=== PATIENT | female | born 1965 | race Caucasian/White ===

== ENCOUNTER → 2016-06-28 | Outpatient (CLI) | payer OTHER ==
[~2016-06-28] MED LIST: ACHD5005 PO; AURODEX10M EACH EAR; CEFD300C3 PO; CEPH250T PO; CEPH500C PO; CHOL500049; CIPR500T78 PO; DCS100C PO; FLUO10CA19 PO; FLUO20CA25 PO; FLUO20CA42 PO; GABA-488 PO; GBPN100C PO; HYDR-2890 PO; HYDR-3714 PO; HYDR-3820; HYDR1TAB PO; MINO100C6 PO; MULT-974 PO; OMEG-12 PO; PIRO10CA2 PO; PREG75CA; TRAM50TA2 PO; muscle relaxer
--- NOTE | 2016-06-28 17:19 | Diagnostic Imaging Report ---
EXAM: Bilateral screening mammogram The current study was also evaluated with a Computer Aided Detection (CAD) system. INDICATION: Screening. No current complaints stated on the questionnaire. COMPARISON: None. This is baseline study. FINDINGS: The breasts are composed of scattered fibroglandular densities. There are central subcentimeter asymmetries within the left breast with slightly increased density and questionable correlating abnormalities in the central aspect of the left breast. These could be summation artifact of parenchyma, however no prior study is available for comparison. The right breast demonstrates no definite mass, architectural distortion or suspicious calcification. IMPRESSION: Nonspecific focal asymmetries in the central aspect of the left breast. Focal compression views and ultrasound evaluation recommended. BI-RADS 0. ACR BI-RADS Category 0: Incomplete. (Needs additional imaging evaluation). Result letter will be mailed to the patient. Note: At least 10% of breast cancer is not imaged by mammography. Dictated by: Dictated on workstation # [id number]
== END ==
LOC: RAD 08:35
PROVIDERS: ATTEND Nurse Practitioner Community Health
DX: Z12.31 Encounter for screening mammogram for malignant neoplasm of breast (principal)

== ENCOUNTER → 2016-07-15 | Outpatient (CLI) | payer OTHER ==
--- NOTE | 2016-07-15 13:59 | Diagnostic Imaging Report ---
Left breast diagnostic mammogram. The current study was also evaluated with a Computer Aided Detection (CAD) system. INDICATION: Focal asymmetries in the central aspect of the left breast. FINDINGS: Focal compression views demonstrate less prominent asymmetries in favor of summation artifact of parenchyma. IMPRESSION: Prominent asymmetries upon additional evaluation in favor of summation artifact of parenchyma. Ultrasound evaluation pending. ACR BI-RADS Category 0: Incomplete. (Needs additional imaging evaluation). Result letter will be mailed to the patient. Note: At least 10% of breast cancer is not imaged by mammography. Dictated by: Dictated on workstation # [id number]
--- NOTE | 2016-07-15 14:04 | Diagnostic Imaging Report ---
Left breast ultrasound. INDICATION: Focal asymmetries in the central aspect of the left breast. FINDINGS: Unremarkable breast parenchyma seen with no focal lesion. IMPRESSION: Negative study. The focal asymmetries seen on mammography also did not demonstrate any convincing underlying lesion on focal compression view and true lateral additional view on diagnostic mammogram evaluation and is suggestive of summation artifact of parenchyma. Annual screening mammogram is recommended. ACR BI-RADS Category 1: Negative. Dictated by: Dictated on workstation # [id number]
== END ==
LOC: RAD 07:26
PROVIDERS: ATTEND Nurse Practitioner Community Health
DX: R92.8 Other abnormal and inconclusive findings on diagnostic imaging of breast (principal)
CPT/HCPCS: 76641

== ENCOUNTER 2017-02-22 20:30 | Emergency (ER) | payer SELFPAY ==
[~2017-02-22] VITALS: Ht 165.1 cm; Wt 75.7 kg
--- OUTSIDE RECORDS SUMMARY | 2017-02-22 20:36 | XMS REPORT ---
Author Author CHUY NGUYEN Organization [employer] Address Unknown Phone Unavailable Care Team Providers Care Parachute Taper Name Role Phone CHUY NGUYEN CP Unavailable Allergies No Known Allergies Problems Problem Type Condition Code Onset Dates Condition Status Problem Varicose veins I86.8 Active Assessment Dysthymia 300.4 Active Problem Myalgia M79.1 Active Problem Scoliosis M41.9 Active Problem 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.50 Active Problem Dysthymia F34.1 Active Problem Urinary urgency R39.15 Active Problem Other chronic pain G89.29 Active Problem Scoliosis (and kyphoscoliosis), idiopathic M41.20 Active Medications Medication Code System Code Instructions Start Date End Date Status Dosage Fluoxetine NDC 0 20 mg Once a day September 09, 2014 1 capsule by Oral route 1 time per day Pt needs an appt for further refills Results No Known Results Summary Purpose eClinicalWorks Submission
--- OUTSIDE RECORDS SUMMARY | 2017-02-22 20:36 | XMS REPORT ---
Author Author CHUY NGUYEN Organization [employer] Address Unknown Phone Unavailable Care Team Providers Care Quarry Plug And Feather Driller Name Role Phone CHUY NGUYEN CP Unavailable Allergies No Known Allergies Problems Problem Type Condition Code Onset Dates Condition Status Assessment 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.50 Active Problem Urinary urgency R39.15 Active Problem Varicose veins I86.8 Active Problem Major depressive disorder, single episode, unspecified F32.9 Active Problem 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.50 Active Problem Scoliosis, unspecified scoliosis type, unspecified spinal region M41.9 Active Problem Scoliosis (and kyphoscoliosis), idiopathic M41.20 Active Problem Dysthymia F34.1 Active Problem Myalgia M79.1 Active Problem Other chronic pain G89.29 Active Medications Medication Code System Code Instructions Start Date End Date Status Dosage Hydrocodone-Acetaminophen [facility] [address]-38 10-325 MG Orally 4 times a day September 18, 2014 1 tablet as needed for pain Results No Known Results Summary Purpose eClinicalWorks Submission
--- OUTSIDE RECORDS SUMMARY | 2017-02-22 20:36 | XMS REPORT ---
Author Author CHUY NGUYEN Organization [facility] Address [address] [place] [address] Care Team Providers Care Locomotive Engineer Electric Name Role Phone CHUY NGUYEN Unavailable PROBLEMS Type Condition ICD9-CM Code SFL46-PT Code Onset Dates Condition Status SNOMED Code Problem Scoliosis (and kyphoscoliosis), idiopathic M41.20 Active 34391263 Problem Myalgia M79.1 Active 75430177 Problem Other chronic pain G89.29 Active 83576528 Problem Urinary urgency R39.15 Active 49864667 Problem Dysthymia F34.1 Active 13061229 Problem Varicose veins I86.8 Active 458749547 Problem Need for prophylaxis against urinary tract infection Z29.8 Active 027403023 Problem Abnormal mammogram of left breast R92.8 Active 451745793 Problem Scoliosis, unspecified scoliosis type, unspecified spinal region M41.9 Active 536429457 Problem 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.50 Active 69703473 Problem Calculus of gallbladder without cholecystitis without obstruction K80.20 Active 480005719 Problem Major depressive disorder, single episode, unspecified F32.9 Active 12140798 ALLERGIES Unknown Allergies SOCIAL HISTORY No smoking Hx information available PLAN OF CARE VITAL SIGNS MEDICATIONS Unknown Medications RESULTS Name Result Date Reference Range Mammogram Dx, Left 2016-07-15 PROCEDURES No Known procedures IMMUNIZATIONS No Known Immunizations
--- OUTSIDE RECORDS SUMMARY | 2017-02-22 20:36 | XMS REPORT ---
Author Author CHUY NGUYEN Organization [employer] Address Unknown Phone Unavailable Care Team Providers Care Oil Spreader Operator Name Role Phone CHUY NGUYEN CP Unavailable Allergies No Known Allergies Problems Problem Type Condition ICD-9 Code Onset Dates Condition Status Problem Varicose veins of the lower extremities with other complications 454.8 Active Problem Sprain and strain of unspecified site of wrist 842.00 Active Problem Urgency of urination 788.63 Active Problem Encounter for long-term (current) use of other medications V58.69 Active Problem Scoliosis (and kyphoscoliosis), idiopathic 737.30 Active Problem Pain in joint, shoulder region 719.41 Active Problem Urinary hesitancy 788.64 Active Problem Enthesopathy of hip region 726.5 Active Problem Family history of other condition V19.8 Active Problem Dysthymic disorder 300.4 Active Problem Spasm of muscle 728.85 Active Problem Urinary tract infection, site not specified 599.0 Active Problem Unspecified neuralgia, neuritis, and radiculitis 729.2 Active Problem Dysfunction of Eustachian tube 381.81 Active Medications Medication Code System Code Instructions Start Date End Date Status Dosage Hydrocodone-Acetaminophen [facility] [address]-36 10-325 MG PT NEEDS AN APPT FOR FURTHER REFILLS September 18, 2014 1 tablet by Oral route every 8 hours PRN Results No Known Results Summary Purpose eClinicalWorks Submission
--- OUTSIDE RECORDS SUMMARY | 2017-02-22 20:36 | XMS REPORT ---
Author Author CHUY NGUYEN Organization [employer] Address Unknown Phone Unavailable Care Team Providers Care Brusher Hand Name Role Phone CHUY NGUYEN CP Unavailable Allergies No Known Allergies Problems Problem Type Condition Code Onset Dates Condition Status Problem Dysthymia F34.1 Active Problem Urinary urgency R39.15 Active Problem Scoliosis (and kyphoscoliosis), idiopathic M41.20 Active Problem Varicose veins I86.8 Active Assessment Other chronic pain G89.29 Active Medications No Known Medications Results No Known Results Summary Purpose eClinicalWorks Submission
--- OUTSIDE RECORDS SUMMARY | 2017-02-22 20:36 | XMS REPORT ---
Author Author CHUY NGUYEN Organization [employer] Address Unknown Phone Unavailable Care Team Providers Care Day Haul Or Farm Charter Bus Driver Name Role Phone CHUY NGUYEN CP Unavailable Allergies No Known Allergies Problems Problem Type Condition Code Onset Dates Condition Status Problem Dysthymia F34.1 Active Problem Urinary urgency R39.15 Active Problem Scoliosis (and kyphoscoliosis), idiopathic M41.20 Active Problem Varicose veins I86.8 Active Medications Medication Code System Code Instructions Start Date End Date Status Dosage Hydrocodone-Acetaminophen [facility] [address]-02 10-325 MG September 18, 2014 1 tablet by Oral route every 8 hours PRN Results No Known Results Summary Purpose eClinicalWorks Submission
--- OUTSIDE RECORDS SUMMARY | 2017-02-22 20:36 | XMS REPORT ---
Author Author CHUY NGUYEN [facility] Address [address] [place] [address] Care Team Providers Care Aircraft Accessories Mechanic Name Role Phone CHUY NGUYEN Unavailable PROBLEMS Type Condition ICD9-CM Code [id number] Code Onset Dates Condition Status SNOMED Code Problem Scoliosis (and kyphoscoliosis), idiopathic M41.20 Active 13739248 Problem Myalgia M79.1 Active 54133648 Problem Other chronic pain G89.29 Active 33330597 Problem Varicose veins I86.8 Active 975707173 Problem Urinary urgency R39.15 Active 74817065 Problem Dysthymia F34.1 Active 33029541 Problem Need for prophylaxis against urinary tract infection Z29.8 Active 642638979 Problem Abnormal mammogram of left breast R92.8 Active 602969415 Problem Major depressive disorder, single episode, unspecified F32.9 Active 96775523 Problem 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.50 Active 91431253 Problem Calculus of gallbladder without cholecystitis without obstruction K80.20 Active 138508547 Problem Scoliosis, unspecified scoliosis type, unspecified spinal region M41.9 Active 155878285 ALLERGIES Substance Reaction Event Type Date Status Sulfamethoxazole-Trimethoprim Unknown Drug Allergy May, Active Aspirin Unknown Drug Allergy May, Active SOCIAL HISTORY No smoking Hx information available PLAN OF CARE Activity Details Follow Up prn Reason: VITAL SIGNS Height 68 in 2016-06-22 Weight 152.2 lbs 2016-06-22 Temperature 98.0 degrees Fahrenheit 2016-06-22 Heart Rate 76 bpm 2016-06-22 Respiratory Rate 18 2016-06-22 BMI 23.14 kg/m2 2016-06-22 Blood pressure systolic 100 mmHg 2016-06-22 Blood pressure diastolic 72 mmHg 2016-06-22 MEDICATIONS Medication Instructions Dosage Frequency Start Date End Date Duration Status Meloxicam 7.5 MG Orally 2 times a day 1 tablet 12h 30 Active Benadryl 25 MG Orally every 6 hrs 1 capsule as needed 6h Active Vitamin D-3 87667 Orally once weekly 1 capsule 14 Apr, 2016 Active Lyrica 75 MG Orally Twice a day 1 capsule 12h Apr, Active Fluoxetine 40 mg 1 tablet 24h 17 Aug, 2014 Active Flonase 50 MCG/DOSE Nasally 2 times a day 1 spray in each nostril 12h 06 Jan, 2015 Active Hydrocodone-Acetaminophen 10-325 MG Orally 4 times a day 1 tablet as needed for pain 6h May, 28 days Active RESULTS Name Result Date Reference Range HEMOCCULT (IN HOUSE) 2016-06-22 RESULTS Negative Control + Lot # [id number] Exp date 03/2018 PDF Report 2016-06-22 PDF Report1 [facility] Mammogram, Bilateral Screening 2016-06-28 HPV Genotypes 16/18,45 2016-06-22 HPV Genotype 16 Negative Negative HPV Genotype 18,45 Negative Negative PAP TEST W/ HPV REGARDLESS 2016-06-22 DIAGNOSIS: Specimen adequacy: Clinician provided ICD10: Performed by: QC reviewed by: . . Note: HPV, high-risk Positive Negative PROCEDURES Procedure Date Ordered Related Diagnosis Body Site SPECIMEN HANDLING Jun 22, 2016 TEST FOR BLOOD, FECES Jun 22, 2016 Office Visit, Est Pt., Level 4 Jun 22, 2016 IMMUNIZATIONS No Known Immunizations
--- OUTSIDE RECORDS SUMMARY | 2017-02-22 20:36 | XMS REPORT ---
Author Author CHUY NGUYEN Organization [employer] Address Unknown Phone Unavailable Care Team Providers Care Box Storage Worker Name Role Phone CHUY NGUYEN CP Unavailable Allergies No Known Allergies Problems Problem Type Condition Code Onset Dates Condition Status Problem Dysthymia F34.1 Active Problem Urinary urgency R39.15 Active Problem Scoliosis (and kyphoscoliosis), idiopathic M41.20 Active Problem Varicose veins I86.8 Active Medications Medication Code System Code Instructions Start Date End Date Status Dosage Hydrocodone-Acetaminophen [facility] [address]-85 10-325 MG Rx to be filled on September 18, 2014 1 tablet by Oral route every 8 hours PRN Results No Known Results Summary Purpose eClinicalWorks Submission
--- OUTSIDE RECORDS SUMMARY | 2017-02-22 20:37 | XMS REPORT ---
Author Author CHUY NGUYEN [facility] Address [address] [place] [address] Care Team Providers Care Hardware Technician Name Role Phone CHUY NGUYEN Unavailable PROBLEMS Type Condition ICD9-CM Code VMK69-KK Code Onset Dates Condition Status SNOMED Code Problem Varicose veins I86.8 Active 211683862 Problem Dysthymia F34.1 Active 86718334 Problem Urinary urgency R39.15 Active 09727016 Assessment Screening, lipid Z13.220 Apr, Active 190530222 Assessment Fatigue due to exposure, subsequent encounter T73.2XXD Apr Active 89235933 Assessment Right leg pain M79.604 Apr, Active 093502341 Assessment Other chronic pain G89.29 Apr, Active 75214806 Problem Scoliosis, unspecified scoliosis type, unspecified spinal region M41.9 Active 911699978 Problem Major depressive disorder, single episode, unspecified F32.9 Active 22251877 Problem Other chronic pain G89.29 Active 46873403 Problem Scoliosis (and kyphoscoliosis), idiopathic M41.20 Active 89191953 Problem 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.50 Active 30407488 Problem Myalgia M79.1 Active 07407184 ALLERGIES Substance Reaction Event Type Date Status Sulfamethoxazole-Trimethoprim Unknown Drug Allergy Apr, Active Aspirin Unknown Drug Allergy Apr, Active SOCIAL HISTORY No smoking Hx information available PLAN OF CARE VITAL SIGNS Height 68 in 2016-05-09 Weight 158.8 lbs 2016-05-09 Heart Rate 72 bpm 2016-05-09 Respiratory Rate 18 2016-05-09 BMI 24.14 kg/m2 2016-05-09 Blood pressure systolic 102 mmHg 2016-05-09 Blood pressure diastolic 70 mmHg 2016-05-09 MEDICATIONS Medication Instructions Dosage Frequency Start Date End Date Duration Status Benadryl 25 MG Orally every 6 hrs 1 capsule as needed 6h Active Flonase 50 MCG/DOSE Nasally 2 times a day 1 spray in each nostril 12h 06 Jan, 2015 Active Meloxicam 7.5 MG Orally 2 times a day 1 tablet 12h 30 Active Vitamin D-3 03655 Orally once weekly 1 capsule Apr, Active Hydrocodone-Acetaminophen 10-325 MG Orally 4 times a day 1 tablet as needed for pain 6h Aug, 28 days Active Lyrica 75 MG Orally Twice a day 1 capsule 12h 14 Apr, 2016 Active Fluoxetine 40 mg 1 tablet 24h 17 Aug, 2014 Active RESULTS Name Result Date Reference Range [employer] 2016-05-09 PROCEDURES Procedure Date Ordered Related Diagnosis Body Site No Charge May 09, 2016 Office Visit, Est Pt., Level 3 May 09, 2016 IMMUNIZATIONS No Known Immunizations
--- OUTSIDE RECORDS SUMMARY | 2017-02-22 20:37 | XMS REPORT ---
Author Author CHUY NGUYEN Organization [employer]Works Address Unknown Phone Unavailable Care Team Providers Care Farm Adviser Name Role Phone CHUY NGUYEN CP Unavailable Allergies, Adverse Reactions, Alerts Substance Reaction Event Type Aspirin Info Not Available Drug Allergy Sulfa(sulfonamide Antibiotics) Info Not Available Non Drug Allergy Problems Problem Type Condition Code Onset Dates Condition Status Assessment Scoliosis, unspecified scoliosis type, unspecified spinal region M41.9 Active Problem Varicose veins I86.8 Active Assessment Right leg pain M79.604 Active Problem Myalgia M79.1 Active Problem Scoliosis M41.9 Active Problem 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.50 Active Problem Dysthymia F34.1 Active Problem Urinary urgency R39.15 Active Problem Other chronic pain G89.29 Active Problem Scoliosis (and kyphoscoliosis), idiopathic M41.20 Active Medications Medication Code System Code Instructions Start Date End Date Status Dosage Neurontin [facility] [address]-53 800 MG Orally TAKE ONE TABLET BY MOUTH THREE TIMES DAILY Hydrocodone-Acetaminophen [facility] [address]-05 10-325 MG Orally 4 times a day September 18, 2014 1 tablet as needed for pain Meloxicam [facility] [address]-17 7.5 MG Orally 2 times a day August 25, 2015 1 tablet Procedures Procedure Coding System Code Date Office Visit, Est Pt., Level 3 CPT-4 74006 January 11, 2016 Vital Signs Date/Time: January 11, 2016 Cardiac Monitoring Heart Rate 76 bpm Weight 161.3 lbs Height 68 in BMI 24.52 Index Blood Pressure Diastolic 72 mmHg Blood Pressure Systolic 102 mmHg Results No Known Results Summary Purpose eClinicalWorks Submission
--- OUTSIDE RECORDS SUMMARY | 2017-02-22 20:37 | XMS REPORT ---
Author Author CHUY NGUYEN Organization [employer] Address Unknown Phone Unavailable Care Team Providers Care [facility] Associate Name Role Phone CHUY NGUYEN CP Unavailable Allergies No Known Allergies Problems Problem Type Condition Code Onset Dates Condition Status Problem Dysthymia F34.1 Active Problem Urinary urgency R39.15 Active Problem Scoliosis (and kyphoscoliosis), idiopathic M41.20 Active Problem Varicose veins I86.8 Active Medications Medication Code System Code Instructions Start Date End Date Status Dosage Hydrocodone-Acetaminophen [facility] [address]-86 10-325 MG September 18, 2014 1 tablet by Oral route every 8 hours PRN Results No Known Results Summary Purpose eClinicalWorks Submission
--- OUTSIDE RECORDS SUMMARY | 2017-02-22 20:37 | XMS REPORT ---
Author Author CHUY NGUYEN [facility] eClinicalWorks Address Unknown Phone Unavailable Care Team Providers Care Hoe Worker Name Role Phone CHUY NGUYEN CP Unavailable Allergies No Known Allergies Problems Problem Type Condition Code Onset Dates Condition Status Problem Varicose veins I86.8 Active Assessment 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.50 Active Problem Myalgia M79.1 Active Problem Scoliosis M41.9 Active Problem 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.50 Active Problem Dysthymia F34.1 Active Problem Urinary urgency R39.15 Active Problem Other chronic pain G89.29 Active Problem Scoliosis (and kyphoscoliosis), idiopathic M41.20 Active Medications Medication Code System Code Instructions Start Date End Date Status Dosage Hydrocodone-Acetaminophen [facility] [address]-28 10-325 MG Orally 4 times a day September 18, 2014 1 tablet as needed for pain Results No Known Results Summary Purpose eClinicalWorks Submission
--- OUTSIDE RECORDS SUMMARY | 2017-02-22 20:37 | XMS REPORT ---
Author Author CHUY NGUYEN [facility] eClinicalWorks Address Unknown Phone Unavailable Care Team Providers Care Photogrammetry Airplane Pilot Name Role Phone CHUY NGUYEN CP Unavailable [...] Date End Date Status Dosage Hydrocodone-Acetaminophen [facility] [address]-01 10-325 MG Orally 4 times a day September 18, 2014 1 tablet as needed for pain Results No Known Results Summary Purpose eClinicalWorks Submission
--- OUTSIDE RECORDS SUMMARY | 2017-02-22 20:37 | XMS REPORT ---
Author Author CHUY NGUYEN Organization [employer] Address Unknown Phone Unavailable Care Team Providers Care Reconciliation Machine Operator Name Role Phone CHYU NGUYEN CP Unavailable Allergies No Known Allergies Problems Problem Type Condition Code Onset Dates Condition Status Problem Dysthymia F34.1 Active Problem Urinary urgency R39.15 Active Problem Scoliosis (and kyphoscoliosis), idiopathic M41.20 Active Problem Varicose veins I86.8 Active Medications Medication Code System Code Instructions Start Date End Date Status Dosage Hydrocodone-Acetaminophen [facility] [address]-18 10-325 MG September 18, 2014 1 tablet by Oral route every 8 hours PRN Results No Known Results Summary Purpose eClinicalWorks Submission
--- OUTSIDE RECORDS SUMMARY | 2017-02-22 20:37 | XMS REPORT ---
Author Author CHUY NGUYEN [facility] eClinicalWorks Address Unknown Phone Unavailable Care Team Providers Care Loop Drier Operator Name Role Phone CHUY NGUYEN CP Unavailable Allergies No Known Allergies Problems Problem Type Condition Code Onset Dates Condition Status Problem Dysthymia F34.1 Active Problem Urinary urgency R39.15 Active Problem Scoliosis (and kyphoscoliosis), idiopathic M41.20 Active Problem Varicose veins I86.8 Active Assessment Family history of early CAD Z82.49 Active Medications No Known Medications Procedures Procedure Coding System Code Date LIPID PANEL CPT-4 23515 Apr 10, 2015 COMPREHEN METABOLIC PANEL CPT-4 06958 Apr 10, 2015 COMPLETE CBC W/AUTO DIFF WBC CPT-4 73337 Apr 10, 2015 VENIPUNCT, ROUTINE* CPT-4 96743 Apr 10, 2015 Results Name Result Date Reference Range Unit Abnormality Flag ROUTINE VENIPUNCTURE Summary Purpose eClinicalWorks Submission
--- OUTSIDE RECORDS SUMMARY | 2017-02-22 20:37 | XMS REPORT ---
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
--- OUTSIDE RECORDS SUMMARY | 2017-02-22 20:37 | XMS REPORT ---
Author Author CHUY NGUYEN [facility] Address [address] [place] [address] Care Team Providers Care Hvac Design Engineer Name Role Phone CHUY NGUYEN Unavailable PROBLEMS Type Condition ICD9-CM Code EBZ42-NT Code Onset Dates Condition Status SNOMED Code Problem Varicose veins I86.8 Active 478877902 Problem 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.50 Active 03009221 Problem Myalgia M79.1 Active 72251665 Problem Dysthymia F34.1 Active 35852055 Problem Urinary urgency R39.15 Active 15749667 Problem Other chronic pain G89.29 Active 55470634 Problem Scoliosis (and kyphoscoliosis), idiopathic M41.20 Active 12368913 ALLERGIES Unknown Allergies SOCIAL HISTORY No smoking Hx information available PLAN OF CARE VITAL SIGNS MEDICATIONS Medication Instructions Dosage Frequency Start Date End Date Duration Status Hydrocodone-Acetaminophen 10-325 MG Orally 4 times a day 1 tablet as needed for pain 6h Aug, 28 days Active RESULTS No Results PROCEDURES No Known procedures IMMUNIZATIONS No Known Immunizations
--- OUTSIDE RECORDS SUMMARY | 2017-02-22 20:37 | XMS REPORT ---
Author Author CHUY NGUYEN Organization e[employer] Address Unknown Phone Unavailable Care Team Providers Care Nursing Care Attendant Name Role Phone CHUY NGUYEN CP Unavailable Allergies No Known Allergies Problems Problem Type Condition Code Onset Dates Condition Status Problem Varicose veins I86.8 Active Problem Myalgia M79.1 Active Problem Scoliosis M41.9 Active Problem 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.50 Active Problem Dysthymia F34.1 Active Problem Urinary urgency R39.15 Active Problem Other chronic pain G89.29 Active Problem Scoliosis (and kyphoscoliosis), idiopathic M41.20 Active Medications No Known Medications Results No Known Results Summary Purpose eClinicalWorks Submission
--- OUTSIDE RECORDS SUMMARY | 2017-02-22 20:37 | XMS REPORT ---
Author Author CHUY NGUYEN Organization [facility] Address [address] [place] [address] Care Team Providers Care Film Spooler Name Role Phone CHUY NGUYEN Unavailable PROBLEMS Type Condition ICD9-CM Code [id number] Code Onset Dates Condition Status SNOMED Code Problem Scoliosis (and kyphoscoliosis), idiopathic M41.20 Active 67146397 Problem Myalgia M79.1 Active 26078310 Problem Other chronic pain G89.29 Active 61558203 Problem Varicose veins I86.8 Active 838946393 Problem Urinary urgency R39.15 Active 93777824 Problem Dysthymia F34.1 Active 15153686 Problem Need for prophylaxis against urinary tract infection Z29.8 Active 560662279 Problem Abnormal mammogram of left breast R92.8 Active 721196558 Problem Major depressive disorder, single episode, unspecified F32.9 Active 69633986 Problem 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.50 Active 24845671 Problem Calculus of gallbladder without cholecystitis without obstruction K80.20 Active 457618146 Problem Scoliosis, unspecified scoliosis type, unspecified spinal region M41.9 Active 697859485 ALLERGIES Unknown Allergies SOCIAL HISTORY No smoking Hx information available PLAN OF CARE VITAL SIGNS MEDICATIONS Medication Instructions Dosage Frequency Start Date End Date Duration Status Hydrocodone-Acetaminophen 10-325 MG Orally 4 times a day 1 tablet as needed for pain 6h May, 28 days Active RESULTS No Results PROCEDURES No Known procedures IMMUNIZATIONS No Known Immunizations
--- OUTSIDE RECORDS SUMMARY | 2017-02-22 20:37 | XMS REPORT ---
Author Author CHUY NGUYEN [facility] eClinicalWorks Address Unknown Phone Unavailable Care Team Providers Care Parts Sales Manager Name Role Phone CHUY NGUYEN CP Unavailable [...] Start Date End Date Status Dosage Hydrocodone-Acetaminophen [facility] [address]-19 10-325 MG Orally 4 times a day September 18, 2014 1 tablet as needed for pain Results No Known Results Summary Purpose eClinicalWorks Submission
--- OUTSIDE RECORDS SUMMARY | 2017-02-22 20:37 | XMS REPORT ---
Author Author CHUY NGUYEN [facility] eClinicalWorks Address Unknown Phone Unavailable Care Team Providers Care Geophysical Manager Name Role Phone CHUY NGUYEN CP Unavailable Allergies, Adverse Reactions, Alerts Substance Reaction Event Type Aspirin Info Not Available Drug Allergy Sulfa(sulfonamide Antibiotics) Info Not Available Non Drug Allergy Problems Problem Type Condition Code Onset Dates Condition Status Problem Dysthymia F34.1 Active Problem Urinary urgency R39.15 Active Problem Scoliosis (and kyphoscoliosis), idiopathic M41.20 Active Assessment Urinary tract infection, site not specified N39.0 Active Assessment Hematuria, unspecified R31.9 Active Problem Varicose veins I86.8 Active Assessment Dysuria R30.0 Active Medications Medication Code System Code Instructions Start Date End Date Status Dosage Fluoxetine [facility] [address]-69 20 MG Once a day September 09, 2014 1 capsule by Oral route 1 time per day Pt needs an appt for further refills Neurontin [facility] [address]-35 600 mg May 30, 2014 take 1 tablet ( 600 mg) by oral route 3 times per day Hydrocodone-Acetaminophen [facility] [address]-11 10-325 MG Rx to be filled on September 18, 2014 1 tablet by Oral route every 8 hours PRN Cipro [facility] [address]-38 500 MG Orally Twice a day May 25, 2015 Jun 22, 2015 1 tablet Flonase [facility] [address]-17 50 MCG/DOSE Nasally 2 times a day Jan 29, 2015 1 spray in each nostril Procedures Procedure Coding System Code Date Office Visit, Est Pt., Level 3 CPT-4 96107 May 25, 2015 URINALYSIS, AUTO, W/O SCOPE CPT-4 12717 May 25, 2015 Vital Signs Date/Time: May 25, 2015 Temperature 96.3 F Weight 171.8 lbs Height 68 in BMI 26.12 Index Blood Pressure Diastolic 70 mmHg Blood Pressure Systolic 120 mmHg Cardiac Monitoring Heart Rate 72 bpm Results Name Result Date Reference Range Unit Abnormality Flag UA LONG DIP (IN HOUSE) ----SLIM 1+ 20150525 ----NIT positive 20150525 ----SG 1.010 20150525 ----KET negative 20150525 ----MAIKEL negative 20150525 ----GLU negative 20150525 ----Odor no 20150525 ----pH 6.0 20150525 ----BLO trace 20150525 ----URO 0.2 20150525 ----Protein negative 20150525 ----Lot # [id number] ----Exp date 20150525 ----Clarity clear 20150525 ----Color yellow 20150525 Summary Purpose eClinicalWorks Submission
--- OUTSIDE RECORDS SUMMARY | 2017-02-22 20:37 | XMS REPORT ---
Author Author CHUY NGUYEN [facility] eClinicalWorks Address Unknown Phone Unavailable Care Team Providers Care Embedded Systems Engineer Name Role Phone CHUY NGUYEN CP Unavailable Allergies No Known Allergies Problems Problem Type Condition Code Onset Dates Condition Status Assessment Screening, lipid Z13.220 Active Problem Urinary urgency R39.15 Active Problem Varicose veins I86.8 Active Problem Major depressive disorder, single episode, unspecified F32.9 Active Problem 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.50 Active Problem Scoliosis, unspecified scoliosis type, unspecified spinal region M41.9 Active Problem Scoliosis (and kyphoscoliosis), idiopathic M41.20 Active Problem Dysthymia F34.1 Active Problem Myalgia M79.1 Active Problem Other chronic pain G89.29 Active Medications No Known Medications Procedures Procedure Coding System Code Date COMPREHEN METABOLIC PANEL CPT-4 93392 May 12, 2016 VENIPUNCT, ROUTINE* CPT-4 46831 May 12, 2016 LIPID PANEL CPT-4 84985 May 12, 2016 Results Name Result Date Reference Range Unit Abnormality Flag CMP ----Calcium, Serum 8.8 20160512 8.7-10.2 mg/dL ----Carbon Dioxide, Total 21 20160512 18-29 mmol/L ----ALT (SGPT) 19 20160512 0-32 IU/L ----Creatinine, Serum 0.77 36597407 0.57-1.00 mg/dL ----AST (SGOT) 30 20160512 0-40 IU/L ----eGFR If NonAfricn Am 89 [id number] >59 mL/min/1.73 ----Alkaline Phosphatase, S 84 37113529 39-117 IU/L ----eGFR If Africn Am 103 [id number] >59 mL/min/1.73 ----Bilirubin, Total <0.2 11691267 0.0-1.2 mg/dL ----BUN/Creatinine Ratio 13 37278148 9-23 ----A/G Ratio 1.6 43649810 1.1-2.5 ----Sodium, Serum 141 20160512 136-144 mmol/L ----Globulin, Total 2.7 85485240 1.5-4.5 g/dL ----Potassium, Serum 3.6 20160512 3.5-5.2 mmol/L ----Glucose, Serum 87 82540625 65-99 mg/dL ----Chloride, Serum 102 20160512 97-106 mmol/L ----Albumin, Serum 4.2 20160512 3.5-5.5 g/dL ----BUN 10 00093475 6-24 mg/dL ----Protein, Total, Serum 6.9 67575890 6.0-8.5 g/dL ROUTINE VENIPUNCTURE LIPID PANEL ----VLDL Cholesterol Misbah 24 93486596 5-40 mg/dL ----LDL Cholesterol Calc 85 23430904 0-99 mg/dL ----Triglycerides 119 99565828 0-149 mg/dL ----HDL Cholesterol 54 20160512 >39 mg/dL ----Cholesterol, Total 163 20498654 100-199 mg/dL Summary Purpose eClinicalWorks Submission
--- OUTSIDE RECORDS SUMMARY | 2017-02-22 20:38 | XMS REPORT ---
Author Author CHUY NGUYEN Organization [facility] Address [address] [place] [address] Care Team Providers Care Explosives Detonator Name Role Phone CHUY NGUYEN Unavailable PROBLEMS Type Condition ICD9-CM Code [id number] Code Onset Dates Condition Status SNOMED Code Problem Scoliosis (and kyphoscoliosis), idiopathic M41.20 Active 35276261 Problem Myalgia M79.1 Active 03601309 Problem Other chronic pain G89.29 Active 37446133 Problem Urinary urgency R39.15 Active 04089436 Problem Dysthymia F34.1 Active 88220900 Problem Varicose veins I86.8 Active 600940444 Problem Need for prophylaxis against urinary tract infection Z29.8 Active 040059395 Problem Abnormal mammogram of left breast R92.8 Active 995150404 Problem Scoliosis, unspecified scoliosis type, unspecified spinal region M41.9 Active 171301560 Problem 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.50 Active 05512603 Problem Calculus of gallbladder without cholecystitis without obstruction K80.20 Active 306798421 Problem Major depressive disorder, single episode, unspecified F32.9 Active 00781629 ALLERGIES Unknown Allergies SOCIAL HISTORY No smoking Hx information available PLAN OF CARE VITAL SIGNS MEDICATIONS Medication Instructions Dosage Frequency Start Date End Date Duration Status Lyrica 150 MG Orally Twice a day 1 capsule 12h 14 Apr, 2016 30 days Active RESULTS No Results PROCEDURES No Known procedures IMMUNIZATIONS No Known Immunizations
--- OUTSIDE RECORDS SUMMARY | 2017-02-22 20:38 | XMS REPORT ---
Author MITCHELL Brewer [facility] eClinicalWorks Address Unknown Phone Unavailable Care Team Providers Care Underground Distribution Engineer Name Role Phone MITCHELL MONTILLA Unavailable Allergies No Known Allergies Problems Problem Type Condition Code Onset Dates Condition Status Problem Dysthymia F34.1 Active Problem Urinary urgency R39.15 Active Problem Scoliosis (and kyphoscoliosis), idiopathic M41.20 Active Problem Varicose veins I86.8 Active Assessment Impingement syndrome of both shoulders M75.41 Active Medications No Known Medications Procedures Procedure Coding System Code Date Office Visit, Est Pt., Level 2 CPT-4 19433 Apr 02, 2015 DEPO MEDROL 80 MG/ML CPT-4 J1040 Apr 02, 2015 DRAIN/INJECT, JOINT/BURSA CPT-4 82387 Apr 02, 2015 Vital Signs Date/Time: Apr 02, 2015 Blood Pressure Diastolic 72 mmHg Blood Pressure Systolic 100 mmHg Height 68 in Results Name Result Date Reference Range Unit Abnormality Flag JOINT INJECTION-INTERMEDIATE JOINT (specify site) Summary Purpose eClinicalWorks Submission
--- OUTSIDE RECORDS SUMMARY | 2017-02-22 20:38 | XMS REPORT ---
Author HARRISON Ellis eClinicalWorks Address Unknown Phone Unavailable Care Team Providers Care Delivery Table Operator Name Role Phone HARRISON HICKEY CP Unavailable Allergies, Adverse Reactions, Alerts Substance Reaction Event Type Aspirin Info Not Available Drug Allergy Sulfa(sulfonamide Antibiotics) Info Not Available Non Drug Allergy Problems Problem Type Condition Code Onset Dates Condition Status Problem Dysthymia F34.1 Active Problem Urinary urgency R39.15 Active Problem Scoliosis (and kyphoscoliosis), idiopathic M41.20 Active Assessment Rhinorrhea J34.89 Active Problem Varicose veins I86.8 Active Assessment Upper respiratory tract infection, unspecified type 465.9 Active Medications Medication Code System Code Instructions Start Date End Date Status Dosage Benadryl [facility] [address]-25 25 MG Orally every 6 hrs 1 capsule as needed Mucinex DM [facility] [address]-09 30-600 MG Orally every 12 hrs Jul 15, 2015 Aug 12, 2015 1 tablet as needed Ipratropium [place] [facility] [address]-57 0.03 % Nasally Three times a day Jul 15, 2015 September 13, 2015 2 applications in each nostril as needed Fluoxetine [facility] [address]-39 20 MG Once a day September 09, 2014 1 capsule by Oral route 1 time per day Pt needs an appt for further refills Flonase [facility] [address]-37 50 MCG/DOSE Nasally 2 times a day Jan 29, 2015 1 spray in each nostril Neurontin [facility] 76584834185 600 MG TAKE ONE TABLET BY MOUTH THREE TIMES DAILY Hydrocodone-Acetaminophen [facility] [address]-55 10-325 MG September 18, 2014 1 tablet by Oral route every 8 hours PRN Procedures Procedure Coding System Code Date Office Visit, Est Pt., Level 3 CPT-4 94647 Jul 15, 2015 Vital Signs Date/Time: Jul 15, 2015 Temperature 97.4 F Weight 163.4 lbs Height 68 in BMI 24.84 Index Blood Pressure Diastolic 68 mmHg Blood Pressure Systolic 102 mmHg Cardiac Monitoring Heart Rate 78 bpm Results No Known Results Summary Purpose eClinicalWorks Submission
--- OUTSIDE RECORDS SUMMARY | 2017-02-22 20:38 | XMS REPORT ---
Author Author CHUY NGUYEN Organization [facility] Address [address] [place] [address] Care Team Providers Care Betting Agency Counter Clerk Name Role Phone CHUY NGUYEN Unavailable PROBLEMS Type Condition ICD9-CM Code [id number] Code Onset Dates Condition Status SNOMED Code Problem Scoliosis (and kyphoscoliosis), idiopathic M41.20 Active 58550964 Problem Myalgia M79.1 Active 50780258 Problem Other chronic pain G89.29 Active 19165566 Problem Urinary urgency R39.15 Active 88749978 Problem Dysthymia F34.1 Active 19616994 Problem Varicose veins I86.8 Active 993957679 Problem Need for prophylaxis against urinary tract infection Z29.8 Active 539433871 Problem Abnormal mammogram of left breast R92.8 Active 426324560 Problem Scoliosis, unspecified scoliosis type, unspecified spinal region M41.9 Active 369956979 Problem 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.50 Active 07878153 Problem Calculus of gallbladder without cholecystitis without obstruction K80.20 Active 757069922 Problem Major depressive disorder, single episode, unspecified F32.9 Active 85543488 ALLERGIES Unknown Allergies SOCIAL HISTORY No smoking Hx information available PLAN OF CARE VITAL SIGNS MEDICATIONS Medication Instructions Dosage Frequency Start Date End Date Duration Status Lyrica 75 MG Orally Twice a day 1 capsule 12h 14 Apr, 2016 30 days Active RESULTS No Results PROCEDURES No Known procedures IMMUNIZATIONS No Known Immunizations
--- OUTSIDE RECORDS SUMMARY | 2017-02-22 20:38 | XMS REPORT ---
Author Author CHUY NGUYEN [facility] eClinicalWorks Address Unknown Phone Unavailable Care Team Providers Care Stratigraphy Teacher Name Role Phone CHUY NGUYEN Unavailable Allergies, Adverse Reactions, Alerts Substance Reaction Event Type Aspirin Info Not Available Drug Allergy Sulfa(sulfonamide Antibiotics) Info Not Available Non Drug Allergy Problems Problem Type Condition Code Onset Dates Condition Status Assessment Dysuria R30.0 Active Assessment Other specified disorders of Eustachian tube, right ear H69.81 Active Problem Dysthymia F34.1 Active Problem Urinary urgency R39.15 Active Problem Scoliosis (and kyphoscoliosis), idiopathic M41.20 Active Assessment Dysthymia F34.1 Active Assessment Family history of early CAD Z82.49 Active Problem Varicose veins I86.8 Active Assessment Other chronic pain G89.29 Active Medications Medication Code System Code Instructions Start Date End Date Status Dosage Cipro [facility] [address]-97 500 MG Orally Twice a day Apr 02, 2015 Apr 09, 2015 1 tablet Flonase [facility] [address]-58 50 MCG/DOSE Nasally 2 times a day Jan 29, 2015 1 spray in each nostril Neurontin [facility] [address]-49 600 mg May 30, 2014 take 1 tablet ( 600 mg) by oral route 3 times per day Hydrocodone-Acetaminophen [facility] [address]-84 10-325 MG September 18, 2014 1 tablet by Oral route every 8 hours PRN Fluoxetine [facility] [address]-97 20 MG Once a day September 09, 2014 1 capsule by Oral route 1 time per day Pt needs an appt for further refills Procedures Procedure Coding System Code Date Office Visit, Est Pt., Level 3 CPT-4 96867 Apr 02, 2015 URINALYSIS, AUTO, W/O SCOPE CPT-4 39881 Apr 02, 2015 Vital Signs Date/Time: Apr 02, 2015 Temperature 97.8 F Weight 170.5 lbs Height 68 in BMI 25.92 Index Blood Pressure Diastolic 78 mmHg Blood Pressure Systolic 130 mmHg Cardiac Monitoring Heart Rate 68 bpm Results Name Result Date Reference Range Unit Abnormality Flag UA LONG DIP (IN HOUSE) Summary Purpose eClinicalWorks Submission
--- OUTSIDE RECORDS SUMMARY | 2017-02-22 20:38 | XMS REPORT ---
Author Author CHUY NGUYEN Organization eClinicalWorks Address Unknown Phone Unavailable Care Team Providers Care Wireless Development Manager Name Role Phone CHUY NGUYEN CP [...] Start Date End Date Status Dosage Hydrocodone-Acetaminophen [facility] [address]-36 10-325 MG Orally 4 times a day September 18, 2014 1 tablet as needed for pain Results No Known Results Summary Purpose eClinicalWorks Submission
[2017-02-22] MEDS ORDERED: ORPHENADRINE 60 MG/2 ML (NORFLEX) AMP IM ONE (21:15)
[2017-02-22] MEDS ORDERED: KETOROLAC 60 MG/2 ML VIAL IM ONE (21:15)
--- NOTE | 2017-02-22 21:38 | ED Fall/Injury ---
General Chief Complaint: Trauma-Non Activation Stated Complaint: PT FELL,LT EAR INJ,BACK PAIN Nursing Triage Note: PT TO ED 6 W/ C/O INJURIES R/T FALL. SEE TRAUMA ASSESSMENT Source: patient Exam Limitations: no limitations History of Present Illness Time seen by provider: 21:33 Initial Comments To ER with reports of back pain after a fall. Patient was walking down her 3 steps which are wobbly. She had her dog with her when the dog took off pulling her over. She landed on her left side striking her head. She has blood at the left ear lobe. She has pain down her lower thoracic and upper lumbar spine. No pain in the neck or upper back. She complains of pain to the great toe as well. No loss of consciousness. She recalls all events. Location Injury Occurred: HOME Occurred: just prior to arrival Severity: moderate Allergies and Home Medications Allergies Coded Allergies: Sulfa (Sulfonamide Antibiotics) (Unverified Allergy, Unknown, 11/13/13) aspirin (Unverified Allergy, Unknown, 11/13/13) Home Medications Antipyrine/Benzocaine/Glycerin 15 Ml Drops, 1-2 DROP EACH EAR Q 1 - 2 HRS PRN, # 1 Prescribed by: DICK HARTMANN on 01/28/15 0646 Cholecalciferol (Vitamin D3) 50,000 Unit Capsule, #4 (Reported) Docusate Sodium 100 Mg Capsule, 100 MG PO DAILY PRN for CONSTIPATION, (Reported) NEEDED FOR CONSTIPATION Fluoxetine Hcl 20 Mg Capsule, 20 MG PO DAILY, (Reported) Gabapentin 300 Mg Capsule, 600 MG PO TID, (Reported) TAKES 2 (300MG) CAPSULES Hydrocodone/Acetaminophen 1 Each Tablet, #112 (Reported) Hydrocodone/Acetaminophen 1 Each Tablet, 1 EACH PO Q4H PRN for PAIN-MODERATE TO SEVERE, #30 Prescribed by: MAGDA OCONNOR on 02/22/176 Piroxicam 10 Mg Capsule, 10 MG PO BID, (Reported) Pregabalin 75 Mg Capsule, #120 (Reported) Constitutional: see HPI Eyes: No Symptoms Reported Ears, Nose, Mouth, Throat: no symptoms reported Respiratory: no symptoms reported Cardiovascular: no symptoms reported Genitourinary: no symptoms reported Musculoskeletal: see HPI Skin: no symptoms reported Past Esvvwkr-Seoloc-Hwhhzd Hx Patient Social History Alcohol Use: Occasionally Uses Recreational Drug Use: No Smoking Status: Current Everyday Smoker Type Used: Cigarettes Recent Foreign Travel: No Contact w/Someone Who Travel: No Recent Infectious Disease Expo: No Recent Hopitalizations: No Physical Abuse: No Sexual Abuse: No Mistreated: No Fear: No Immunizations Up To Date Tetanus Booster (TDap): Unknown Date of Influenza Vaccine: Mar 26, 2012 Surgeries History of Surgeries: Yes Surgeries: Section, Nephrectomy Respiratory History of Respiratory Disorde: No Cardiovascular History of Cardiac Disorders: No Neurological History of Neurological Disord: No 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 [employer] History: Menopausal Genitourinary Genitourinary Disorders: Kidney Infection Gastrointestinal History of Gastrointestinal Di: No Musculoskeletal History of Musculoskeletal Dis: Yes (RESTLESS LEG SYNDROME) Musculoskeletal Disorders: Arthritis Endocrine History of Endocrine Disorders: No Cancer 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) Cancer: Kidney Psychosocial History of Psychiatric Problem: Yes Behavioral Health Disorders: Anxiety Suicide Risk Score: 0 Integumentary History of Skin or Integumenta: No Blood Transfusions History of Blood Disorders: No Physical Exam Vital Signs Vital Sign - Last 12Hours 02/22/17 20:54 Temp 98.4 Pulse 66 Resp 20 B/P (MAP) 152/98 Pulse Ox 100 O2 Delivery Room Air Capillary Refill : Less Than 3 Seconds General Appearance: WD/WN, no apparent distress HEENT: PERRL/EOMI, normal ENT inspection Neck: non-tender, full range of motion Respiratory: normal breath sounds, no respiratory distress, no accessory muscle use Gastrointestinal: normal bowel sounds, non tender, soft Extremities: normal range of motion, non-tender Neurologic/Psychiatric: alert, normal mood/affect, oriented x 3 Skin: normal color, warm/dry Comments To the left earlobe there is a bit of blood where the earlobe has torn from its attachment to the scalp. This does not require suture. No other signs of head injury. There is no neck pain and palpation and she has full range of motion to her neck without pain or paresthesias. The upper thoracic spine is nontender to palpation as is the lower thoracic and lumbar spine. Despite being nontender to palpation she reports they are painful when she is walking. She reports a history of scoliosis. She has some small abrasions and ecchymosis to the anterior lower legs and knees bilaterally. There is no concerning appearance of the left great toe where she complains of pain. It is without erythema ecchymosis or deformity. She was wearing shoes at the time of this injury. However, the great toe remains tender to palpation laterally. Marc Coma Score Best Eye Response: (4) Open Spontaneously Best Verbal Response: (5) Oriented Best Motor Response: (6) Obeys Commands Marc Total: 15 Progress/Results/Core Measures Results/Orders My Orders Orders - MAGDA OCONNOR APRN Ct Head/Cervical Spine Wo (02/22/17 21:08) Ct Thoracic/Lumbar Spine Wo (02/22/17 21:08) Foot, Left, 3 Views (02/22/17 21:08) Ketorolac Injection (Toradol Injection) (02/22/17 21:15) Orphenadrine Injection (Norflex Injectio (02/22/17 21:15) Rx-Hydrocodone/Apap 5-325 Mg (Rx-Vicodin (02/22/17 22:15) Medications Given in ED Current Medications Medications Dose Ordered Sig/Venkata Route Start Time Stop Time Status Last Admin Dose Admin Ketorolac Tromethamine 60 mg ONCE ONCE IM 02/22/17 21:15 02/22/17 21:16 DC 02/22/17 21:51 60 MG Orphenadrine Citrate 60 mg ONCE ONCE IM 02/22/17 21:15 02/22/17 21:16 DC 02/22/17 21:51 60 MG Vital Signs/I&O Vital Sign - Last 12Hours 02/22/17 20:54 Temp 98.4 Pulse 66 Resp 20 B/P (MAP) 152/98 Pulse Ox 100 O2 Delivery Room Air Blood Pressure Mean: 116 Diagnostic Imaging Diagonstic Imaging: CT Comments NAME: MAUREEN BUTLER [facility] REC#: [id number] PT STATUS: REG ER : 1965 PHYSICIAN: MAGDA OCONNOR APRN ADMIT DATE: 02/22/17/ER Draft Date of Exam:02/22/17 CT THORACIC/LUMBAR SPINE WO INDICATION: Fall with back pain Multiple contiguous axial CT images of the thoracic and lumbar spine are obtained. There is S-shaped thoracolumbar scoliosis with rightward convexity in the thoracic spine and leftward convexity in the lumbar region. Thoracic vertebral body heights are maintained. There is diffuse narrowing of thoracic disc spaces with associated endplate spurring most pronounced toward the left. There is no evidence of an acute thoracic spinal fracture. In the lumbar spine: There is central compression fracture involving the superior endplate of L4. There appears to be disc bulging at this level as well. No definite hematoma is noted. There is no other evidence of an acute fracture or subluxation. Note is made of cholelithiasis and mild to moderate aortoiliac atherosclerotic calcification. There is also a large fluid containing structure in the midline of the pelvis likely representing distended bladder. IMPRESSION: Compression fracture deformity involving superior endplate of L3 without significant retropulsion or paraspinous hematoma. Consideration could be given to MRI to evaluate for marrow edema or hemorrhage. Otherwise, no acute osseous abnormality is identified. There is moderate S-shaped thoracolumbar spinal scoliosis and degenerative changes in the spine. There does appear to be urinary bladder distention which can be related to nerve injury and clinical correlation is recommended. Dictated on workstation # [id number] Dict: 02/22/172140 Trans: 02/22/172150 [facility] [id number] Interpreted by: ORALIA BOLIVAR MD Electronically signed by: Departure Communication (Admissions) Progress Notes 2203- in regards to the new compression deformity of L4. She does not have any tingling down either legs or shooting pains or numbness. She has no saddle anesthesia or hypoesthesia. The CT scan noted her bladder to appear very distended which can be seen with spinal cord injury but patient states that she had to go to the bathroom "terribly" and she did urinate just after the CT scan (so she does retain urge to urinate) She still feels as though her bladder is empty so we are going to do a postvoid residual bladder scan at this time. If she does not have any significant urine volume on her postvoid residual bladder scan we will discharge to home with pain control. 2220-postvoid residual bladder scan shows maximum of 500 mL of urine in the bladder. When asked if she feels as though her bladder is in too she states "yeah, but I'm probably not. That's probably why I get bladder infections all the time". Difficult to check patellar tendon reflex due chronic knee effusion bilaterally. Strength is 5 out of 5 bilateral lower extremities 2234- I did discuss the case with neurosurgeon at [facility]. She recommends checking rectal tone but that this patient likely has underlying bladder dysfunction in that the bladder distention/urinary retention is unlikely to be related to the spinal injury given the absence of any report of spinal stenosis on CT and the MRI could most likely be deferred until the outpatient setting. 2240- rectal tone may be a bit weak but is present. I advised patient to return to ER for any shooting pains down her legs, loss of sensation of her genitals or any urinary incontinence. Patient states "well shit, I piss myself all the time when I get a UTI". 2251- I discussed the case with Dr. Marques. She is placed the order for the MRI lumbar spine and the patient will call registration tomorrow to determine what time this should be done. Impression Impression: Primary Impression: Compression fracture of L4 lumbar vertebra Disposition: HOME, SELF-CARE Condition: Stable Departure-Patient Inst. Decision time for Depature: 21:38 Referrals: TUAN MTZ DO (PCP) Primary Care Physician CHUY NGUYEN (Family) Primary Care Physician Patient Instructions: Vertebral Compression Fracture Add. Discharge Instructions: 1. Return to ER for any concerns. Things that should concern are urinating on your self, pain or tingling down either lower legs, loss of sensation of your genitals. 2. Follow-up with your doctor next week 3. Pain medication as directed. Beware this will constipate you and you should take an kxvq-aor-qrvnisy stool softener such as Colace to help prevent constipation 4. Call registration here at the hospital tomorrow morning at 9 a.m. Their phone number is [phone]. Asked them what time the MRI lumbar spine is scheduled for. Dr. Marques has placed this order Scripts Hydrocodone/Acetaminophen ([place] 5-325 Tablet) 1 Each Tablet 1 EACH PO Q4H Y for PAIN-MODERATE TO SEVERE, #30 TAB Prov: MAGDA OCONNOR APRN 02/22/17 Copy Copies To 1: TUAN MTZ PETER J APRN Feb 22, 2017 21:38
--- NOTE | 2017-02-22 21:42 | Diagnostic Imaging Report ---
PROCEDURE: CT head and CT cervical spine without contrast. TECHNIQUE: Multiple contiguous axial images were obtained through the brain and cervical spine without the use of intravenous contrast. Sagittal and coronal reformations through the cervical spine were then performed. INDICATION: Fall with head injury and neck pain. CT HEAD: Ventricles and sulci are within normal limits for size. There is no intracranial hemorrhage identified. There is no abnormal mass effect or shift of midline structures. Density which may represent cerumen or blood is noted within the right external auditory canal. IMPRESSION: Unremarkable CT of the head. CT CERVICAL SPINE: There is loss of normal cervical lordosis. Vertebral body heights and disc spaces are maintained. Prevertebral soft tissues are unremarkable, and there is no evidence of paraspinous hematoma. Mild diffuse degenerative facet arthropathy is noted. IMPRESSION: Loss of normal cervical lordosis which may be due to positioning or muscle spasm. There is otherwise no CT evidence of acute cervical spinal abnormality. Dictated by: Dictated on workstation # [id number]
--- NOTE | 2017-02-22 21:52 | Diagnostic Imaging Report ---
INDICATION: Fall with back pain. EXAM: Multiple contiguous axial CT images of the thoracic and lumbar spine are obtained. THORACIC SPINE: There is an S-shaped thoracolumbar scoliosis with rightward convexity in the thoracic spine and leftward convexity in the lumbar region. Thoracic vertebral body heights are maintained. There is diffuse narrowing of thoracic disc spaces with associated endplate spurring, most pronounced toward the left. There is no evidence of an acute thoracic spinal fracture. LUMBAR SPINE: There is a central compression fracture involving the superior endplate of L4. There appears to be disc bulging at this level, as well. No definite hematoma is noted. There is no other evidence of an acute fracture or subluxation. Note is made of cholelithiasis and mild to moderate aortoiliac atherosclerotic calcification. There is also a large fluid-containing structure in the midline of the pelvis, likely representing a distended bladder. IMPRESSION: There is a moderate S-shaped thoracolumbar spinal scoliosis and degenerative changes in the spine. Compression fracture deformity involving superior endplate of L3 without significant retropulsion or paraspinous hematoma. Consideration could be given to MRI to evaluate for marrow edema or hemorrhage. Otherwise, no acute osseous abnormality is identified. Cholelithiasis and mild to moderate aortoiliac atherosclerotic calcification. There does appear to be urinary bladder distention which can be related to nerve injury and clinical correlation is recommended. Dictated by: Dictated on workstation # [id number]
--- NOTE | 2017-02-22 22:03 | Diagnostic Imaging Report ---
INDICATION: Fall with left foot pain. EXAM: AP, oblique and lateral views of the left foot. FINDINGS: There is a moderate bunion deformity. There is a nondisplaced fracture within the midshaft of the first proximal phalanx. There are moderate degenerative changes seen at the first tarsometatarsal and metatarsophalangeal joints. Similar findings are seen throughout the interphalangeal joints, the remainder of the toes. There is moderate irregularity involving the distal fifth metatarsal which may be related to old injury. There is mild plantar calcaneal spurring. IMPRESSION: Nondisplaced fracture in the midshaft of the first proximal phalanx. No other acute abnormality is identified, however, there is a moderate bunion deformity and diffuse degenerative changes, as described. Dictated by: Dictated on workstation # [id number]
[2017-02-22] MEDS ORDERED: HYDR-757 PO (22:06)
[2017-02-22] MEDS ORDERED: RX-HYDROCODONE/APAP 5/325 MG #4 TAB PK PO PRN (22:15)
[2017-02-22] MEDS ORDERED: TETANUS,DIPTH,PERTUSS P/F (BOOSTRIX) 0.5 ML VIAL IM ONE ×2 (22:55→23:15)
[2017-02-22 23:22] VITALS: BP 149/99
== END 2017-02-22 23:22 | disposition home or self-care (01) ==
LOC: EDUNIT# 20:30 → ER 20:32
DX: Z04.3 Encounter for examination and observation following other accident (principal)
CPT/HCPCS: 70450; 72125; 72128; 72131; 73630; 90471; 90715; 96372; 99284

== ENCOUNTER → 2017-02-25 | Outpatient (CLI) | payer SELFPAY ==
[~2017-02-25] MED LIST changes: +HYDR-757 PO
--- NOTE | 2017-02-25 10:46 | Diagnostic Imaging Report ---
CLINICAL INDICATION: Patient with fracture of fourth lumbar vertebra. Patient fell on stairs [place] and now has low back pain. Exam: MRI of the lumbar spine performed without IV contrast. Sequences include sagittal T2, sagittal T1, sagittal T2 fat-sat, axial T2, and coronal T2. Comparison: CT scan of the thoracic and lumbar spine dated 02/22/2017. FINDINGS: There is roughly 42 degrees of levoscoliosis of the lumbar spine with apex at the L2- L3 intervertebral level. There is also mild left lateral subluxation of L3-L4. The distal thoracic spinal cord, conus medullaris, and cauda equina nerve roots are unremarkable. The conus medullaris tip is seen at the mid L2 vertebral body level. Cholelithiasis is again seen. Right kidney is absent. Hypertrophic left kidney is noted. There is no significant paraspinal soft tissue abnormality. There is stable compression fracture deformity of the left side of the upper endplate of the L4 vertebral body with moderate amount of marrow edema seen within the L4 vertebral body. There is Modic type I degenerative signal changes involving the left side of the L5-S1 endplates. There is also small to moderate amount of marrow edema involving the right side of the L1-L2 endplates anteriorly and moderate amount involving the right side of the L3 vertebral body. There is no definite fracture seen involving the other lumbar vertebra besides the L4 vertebral body. L1-L2: There is a diffuse disc bulge and mild bilateral facet arthropathy. There is mild right neural foramen narrowing. There is no significant central spinal canal or left neural foramen narrowing. L2-L3: There is a mild posterior disc bulge. There is mild to moderate right neural foramen narrowing. There is no significant central spinal canal or left neural foramen narrowing. There is mild bilateral facet arthropathy. L3-L4: There is a diffuse disc bulge with small disc herniation component extending into the foraminal regions bilaterally. There is severe right facet arthropathy and moderate left facet arthropathy/hypertrophy and ligamentum flavum buckling. There is mild to moderate central canal narrowing. There is severe right neural foramen narrowing and no significant left neural foramen narrowing. L4-L5: There is severe left facet arthropathy/hypertrophy and mild right facet arthropathy. There is moderate to severe left neural foramen narrowing and mild to moderate right neural foramen narrowing. There is no significant central canal narrowing. L5-S1: There is a diffuse disc bulge with hypertrophic far left lateral disc spurs which extend into the foraminal region. There is severe left neural foramen narrowing. There is no significant right neural foramen narrowing. There is no significant central canal narrowing. IMPRESSION: 1.: There is an acute fracture involving the L4 vertebral body. There is no retropulsed fragment. 2: There is dextroscoliosis of the lumbar spine with multilevel degenerative disc disease which is described in detail above. Dictated by: Dictated on workstation # [id number]
== END ==
LOC: RAD 09:14
PROVIDERS: ATTEND Family Medicine
DX: S32.049A Unspecified fracture of fourth lumbar vertebra, initial encounter for closed fracture (principal); M51.26 Other intervertebral disc displacement, lumbar region; M41.26 Other idiopathic scoliosis, lumbar region; M48.06 Spinal stenosis, lumbar region; X58.XXXA Exposure to other specified factors, initial encounter; Y99.8 Other external cause status
CPT/HCPCS: 72148

== ENCOUNTER 2017-07-13 13:18 | Emergency (ER) | payer SELFPAY ==
--- OUTSIDE RECORDS SUMMARY | 2017-07-13 13:32 | XMS REPORT ---
Author Author CHUY NGUYEN Organization [facility] Address [address] [place] [address] Care Team Providers Care Correspondence Dictator Name Role Phone CHUY NGUYEN Unavailable PROBLEMS Type Condition ICD9-CM Code [id number] Code Onset Dates Condition Status SNOMED Code Problem Scoliosis (and kyphoscoliosis), idiopathic M41.20 Active 80438721 Problem Myalgia M79.1 Active 80408339 Problem Other chronic pain G89.29 Active 72735568 Problem Urinary urgency R39.15 Active 66614053 Problem Dysthymia F34.1 Active 44852729 Problem Varicose veins I86.8 Active 648751037 Problem Need for prophylaxis against urinary tract infection Z29.8 Active 083178482 Problem Abnormal mammogram of left breast R92.8 Active 690291578 Problem Scoliosis, unspecified scoliosis type, unspecified spinal region M41.9 Active 611785928 Problem 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.50 Active 97965468 Problem Calculus of gallbladder without cholecystitis without obstruction K80.20 Active 365109391 Problem Major depressive disorder, single episode, unspecified F32.9 Active 33528822 ALLERGIES No Information SOCIAL HISTORY Never Assessed PLAN OF CARE VITAL SIGNS MEDICATIONS Medication Instructions Dosage Frequency Start Date End Date Duration Status Hydrocodone-Acetaminophen 10-325 MG Orally 4 times a day 1 tablet as needed for pain 6h Jun, 28 days Active RESULTS No Results PROCEDURES No Known procedures IMMUNIZATIONS No Known Immunizations MEDICAL (GENERAL) HISTORY Type Description Date Medical History chronic pain Medical History arthritis Surgical History Kidney when 3 years old Hospitalization History surgery Hospitalization History childbirth x 3
--- OUTSIDE RECORDS SUMMARY | 2017-07-13 13:32 | XMS REPORT ---
Author Author CHUY NGUYEN Organization [facility] Address [address] [place] [address] Care Team Providers Care Membership Advisor Name Role Phone CHUY NGUYEN Unavailable PROBLEMS Type Condition ICD9-CM Code [id number]-IH Code Onset Dates Condition Status SNOMED Code Problem Scoliosis (and kyphoscoliosis), idiopathic M41.20 Active 16687181 Problem Myalgia M79.1 Active 82624546 Problem Other chronic pain G89.29 Active 20922514 Problem Urinary urgency R39.15 Active 45899812 Problem Dysthymia F34.1 Active 10259651 Problem Varicose veins I86.8 Active 850695757 Problem Need for prophylaxis against urinary tract infection Z29.8 Active 942943583 Problem Abnormal mammogram of left breast R92.8 Active 149432522 Problem Scoliosis, unspecified scoliosis type, unspecified spinal region M41.9 Active 398255572 Problem 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.50 Active 09025382 Problem Calculus of gallbladder without cholecystitis without obstruction K80.20 Active 713339085 Problem Major depressive disorder, single episode, unspecified F32.9 Active 46601237 ALLERGIES No Information SOCIAL HISTORY Never Assessed PLAN OF CARE VITAL SIGNS MEDICATIONS Medication Instructions Dosage Frequency Start Date End Date Duration Status Hydrocodone-Acetaminophen 10-325 MG Orally 4 times a day 1 tablet as needed for pain 6h October, 28 days Active RESULTS No Results PROCEDURES No Known procedures IMMUNIZATIONS No Known Immunizations MEDICAL (GENERAL) HISTORY Type Description Date Medical History chronic pain Medical History arthritis Surgical History Kidney when 3 years old Hospitalization History surgery Hospitalization History childbirth x 3
--- OUTSIDE RECORDS SUMMARY | 2017-07-13 13:32 | XMS REPORT ---
Author Author CHUY NGUYEN Organization [facility] Address [address] [place] [address] Care Team Providers Care Ux Specialist Name Role Phone CHUY NGUYEN Unavailable PROBLEMS Type Condition ICD9-CM Code TTG83-UP Code Onset Dates Condition Status SNOMED Code Problem Scoliosis (and kyphoscoliosis), idiopathic M41.20 Active 26461861 Problem Myalgia M79.1 Active 51737484 Problem Other chronic pain G89.29 Active 33947398 Problem Urinary urgency R39.15 Active 60691746 Problem Dysthymia F34.1 Active 98014191 Problem Varicose veins I86.8 Active 541523559 Problem Need for prophylaxis against urinary tract infection Z29.8 Active 902586206 Problem Abnormal mammogram of left breast R92.8 Active 035625092 Problem Scoliosis, unspecified scoliosis type, unspecified spinal region M41.9 Active 003810837 Problem 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.50 Active 62562209 Problem Calculus of gallbladder without cholecystitis without obstruction K80.20 Active 602056815 Problem Major depressive disorder, single episode, unspecified F32.9 Active 28368449 ALLERGIES No Information SOCIAL HISTORY Never Assessed PLAN OF CARE VITAL SIGNS MEDICATIONS Medication Instructions Dosage Frequency Start Date End Date Duration Status Hydrocodone-Acetaminophen 10-325 MG Orally 4 times a day 1 tablet as needed for pain 6h Jul, 28 days Active RESULTS No Results PROCEDURES No Known procedures IMMUNIZATIONS No Known Immunizations MEDICAL (GENERAL) HISTORY Type Description Date Medical History chronic pain Medical History arthritis Surgical History Kidney when 3 years old Hospitalization History surgery Hospitalization History childbirth x 3
--- OUTSIDE RECORDS SUMMARY | 2017-07-13 13:33 | XMS REPORT ---
Author Author CHUY NGUYEN Organization [facility] Address [address] [place] [address] Care Team Providers Care Landfill Gas Collection System Operator Name Role Phone CHUY NGUYEN Unavailable PROBLEMS Type Condition ICD9-CM Code [id number] Code Onset Dates Condition Status SNOMED Code Problem Scoliosis (and kyphoscoliosis), idiopathic M41.20 Active 38315387 Problem Myalgia M79.1 Active 66830288 Problem Other chronic pain G89.29 Active 46587220 Problem Urinary urgency R39.15 Active 48827806 Problem Dysthymia F34.1 Active 13414516 Problem Varicose veins I86.8 Active 850553966 Problem Need for prophylaxis against urinary tract infection Z29.8 Active 667290082 Problem Abnormal mammogram of left breast R92.8 Active 501832952 Problem Scoliosis, unspecified scoliosis type, unspecified spinal region M41.9 Active 555212038 Problem 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.50 Active 86150139 Problem Calculus of gallbladder without cholecystitis without obstruction K80.20 Active 689138983 Problem Major depressive disorder, single episode, unspecified F32.9 Active 77078808 ALLERGIES No Information SOCIAL HISTORY Never Assessed PLAN OF CARE VITAL SIGNS MEDICATIONS No Known Medications RESULTS No Results PROCEDURES No Known procedures IMMUNIZATIONS No Known Immunizations MEDICAL (GENERAL) HISTORY Type Description Date Medical History chronic pain Medical History arthritis Surgical History Kidney when 3 years old Hospitalization History surgery Hospitalization History childbirth x 3
--- OUTSIDE RECORDS SUMMARY | 2017-07-13 13:33 | XMS REPORT ---
Author Author CHUY NGUYEN Organization [facility] Address [address] [place] [address] Care Team Providers Care Grip Assembler Name Role Phone CHUY NGUYEN Unavailable PROBLEMS Type Condition ICD9-CM Code CNM05-XA Code Onset Dates Condition Status SNOMED Code Problem Scoliosis (and kyphoscoliosis), idiopathic M41.20 Active 39239747 Problem Myalgia M79.1 Active 22585656 Problem Other chronic pain G89.29 Active 27520568 Problem Urinary urgency R39.15 Active 71163370 Problem Dysthymia F34.1 Active 73987024 Problem Varicose veins I86.8 Active 125951913 Problem Need for prophylaxis against urinary tract infection Z29.8 Active 435401283 Problem Abnormal mammogram of left breast R92.8 Active 165056124 Problem Scoliosis, unspecified scoliosis type, unspecified spinal region M41.9 Active 781525623 Problem 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.50 Active 89527778 Problem Calculus of gallbladder without cholecystitis without obstruction K80.20 Active 622825909 Problem Major depressive disorder, single episode, unspecified F32.9 Active 77128876 ALLERGIES No Known Allergies SOCIAL HISTORY No smoking Hx information available PLAN OF CARE VITAL SIGNS MEDICATIONS Medication Instructions Dosage Frequency Start Date End Date Duration Status Hydrocodone-Acetaminophen 10-325 MG Orally 4 times a day 1 tablet as needed for pain 6h Jun, 28 days Active RESULTS No Results PROCEDURES No Known procedures IMMUNIZATIONS No Known Immunizations
--- OUTSIDE RECORDS SUMMARY | 2017-07-13 13:33 | XMS REPORT ---
Author Author CHUY NGUYEN Organization [facility] Address [address] [place] [address] Care Team Providers Care Denture Technician Name Role Phone CHUY NGUYEN Unavailable PROBLEMS Type Condition ICD9-CM Code CQY75-QG Code Onset Dates Condition Status SNOMED Code Problem Scoliosis (and kyphoscoliosis), idiopathic M41.20 Active 07569599 Problem Myalgia M79.1 Active 06670207 Problem Other chronic pain G89.29 Active 55564005 Problem Urinary urgency R39.15 Active 27210570 Problem Dysthymia F34.1 Active 19868141 Problem Varicose veins I86.8 Active 899887025 Problem Need for prophylaxis against urinary tract infection Z29.8 Active 651049317 Problem Abnormal mammogram of left breast R92.8 Active 088416389 Problem Scoliosis, unspecified scoliosis type, unspecified spinal region M41.9 Active 290516163 Problem 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.50 Active 35565627 Problem Calculus of gallbladder without cholecystitis without obstruction K80.20 Active 276139518 Problem Major depressive disorder, single episode, unspecified F32.9 Active 33943740 ALLERGIES No Information SOCIAL HISTORY Never Assessed [...]
--- OUTSIDE RECORDS SUMMARY | 2017-07-13 13:33 | XMS REPORT ---
Author Author CHUY NGUYEN Organization [facility] Address [address] [place] [address] Care Team Providers Care Geographic Information Systems Analyst Name Role Phone CHUY NGUYEN Unavailable PROBLEMS Type Condition ICD9-CM Code KDI14-HD Code Onset Dates Condition Status SNOMED Code Problem Scoliosis (and kyphoscoliosis), idiopathic M41.20 Active 53590149 Problem Myalgia M79.1 Active 25012896 Problem Other chronic pain G89.29 Active 44665460 Problem Urinary urgency R39.15 Active 71697138 Problem Dysthymia F34.1 Active 57145941 Problem Varicose veins I86.8 Active 005087822 Problem Need for prophylaxis against urinary tract infection Z29.8 Active 273517083 Problem Abnormal mammogram of left breast R92.8 Active 442769150 Problem Scoliosis, unspecified scoliosis type, unspecified spinal region M41.9 Active 990198610 Problem 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.50 Active 52209276 Problem Calculus of gallbladder without cholecystitis without obstruction K80.20 Active 836271311 Problem Major depressive disorder, single episode, unspecified F32.9 Active 90218470 ALLERGIES No Known Allergies SOCIAL HISTORY No smoking Hx information available PLAN OF CARE VITAL SIGNS MEDICATIONS Medication Instructions Dosage Frequency Start Date End Date Duration Status Cipro 500 MG Orally Twice a day 1 tablet 12h Jun, Jun, 07 days Active RESULTS No Results PROCEDURES No Known procedures IMMUNIZATIONS No Known Immunizations
--- OUTSIDE RECORDS SUMMARY | 2017-07-13 13:35 | XMS REPORT | Continuity of Care Document ---
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 CHUY S 719.41 PAIN- SHOULDER 02/07/2013 WENDY JUNIOR PHP DEVELOPER, CHUY S V58.69 HIGH RISK MEDICATION (LONG-TERM) 07/15/2013 MAGDA OCONNOR APRN Ot 719.43 JOINT PAIN-FOREARM 07/15/2013 MAGDA OCONNOR APRN Ot 842.00 SPRAIN OF WRIST NOS 07/15/2013 MAGDA OCONNOR APRN Ot E000.8 OTHER EXTERNAL CAUSE STATUS 07/15/2013 MAGDA OCONNOR APRN Ot E928.9 ACCIDENT NOS 07/18/2013 KAREEM MTZ DOA K 726.5 ENTHESOPATHY OF HIP REGION 07/18/2013 TUAN MTZ DO K 842.00 SPRAIN OF UNSPECIFIED SITE OF WRIST 07/18/2013 WENDY ALVARESN, CHYU S 726.5 ENTHESOPATHY OF HIP REGION 07/18/2013 WENDY ALVARESN, CHUY S 842.00 SPRAIN OF UNSPECIFIED SITE OF WRIST 07/18/2013 WENDY ALVARESN CHUY S 726.5 ENTHESOPATHY OF HIP REGION 07/18/2013 WENDY JUNIOR PHP DEVELOPER, CHUY S 842.00 SPRAIN OF UNSPECIFIED SITE OF WRIST 07/18/2013 KAREEM MTZ DOA K 726.5 ENTHESOPATHY OF HIP REGION 07/18/2013 KAREEM MTZ DOA K 842.00 SPRAIN OF UNSPECIFIED SITE OF WRIST 07/18/2013 WENDY JUNIOR PHP DEVELOPER, CHUY S 726.5 ENTHESOPATHY OF HIP REGION 07/18/2013 WENDY JUNIOR PHP DEVELOPER, CHUY S 842.00 SPRAIN OF UNSPECIFIED SITE OF WRIST 07/18/2013 WENDY JUNIOR PHP DEVELOPER, CHUY S 726.5 ENTHESOPATHY OF HIP REGION 07/18/2013 WENDY JUNIOR PHP DEVELOPER CHUY S 842.00 SPRAIN OF UNSPECIFIED SITE OF WRIST 07/24/2013 WENDY JUNIOR PHP DEVELOPER, CHUY S 454.8 VARICOSE VEINS 07/24/2013 WENDY JUNIOR PHP DEVELOPER, CHUY S 454.8 VARICOSE VEINS 07/24/2013 BIBI HUITRON, TUAN K 454.8 VARICOSE VEINS 07/24/2013 WENDY JUNIOR PHP DEVELOPER, CHUY S 454.8 VARICOSE VEINS 07/24/2013 WENDY JUNIOR PHP DEVELOPER, CHUY S 454.8 VARICOSE VEINS 09/23/2013 WENDY JUNIOR PHP DEVELOPER, CHUY S 381.81 EUSTACHIAN TUBE DYSFUNCTION 09/23/2013 BIBI HUITRON, TUAN K 381.81 EUSTACHIAN TUBE DYSFUNCTION 09/23/2013 WENDY JUNIOR PHP DEVELOPER, CHUY S 381.81 EUSTACHIAN TUBE DYSFUNCTION 09/23/2013 WENDY JUNIOR PHP DEVELOPER, CHUY S 381.81 EUSTACHIAN TUBE DYSFUNCTION 10/28/2013 DOTTIE SANCHEZ MD Ot 576.8 DIS OF BILIARY TRACT NEC 10/28/2013 DOTTIE SANCHEZ MD Ot 599.0 URIN TRACT INFECTION NOS 10/28/2013 DOTTIE SANCHEZ MD Ot 789.09 ABDOMINAL PAIN, OTHER SPECIFIED SITE 11/14/2013 ABDULAZIZ GRAVES MD Ot 041.3 KLEBSIELLA PNEUMONIAE 11/14/2013 ABDULAZIZ GRAVES MD Ot 305.1 TOBACCO USE DISORDER 11/14/2013 ABDULAZIZ GRAVES MD Ot 560.1 PARALYTIC ILEUS 11/14/2013 ABDULAZIZ GRAVES MD Ot 574.20 CHOLELITHIASIS NOS 11/14/2013 ABDULAZIZ GRAVES MD Ot 599.0 URIN TRACT INFECTION NOS 11/14/2013 ABDULAZIZ GRAVES MD Ot 715.90 OSTEOARTHROS NOS-UNSPEC 02/20/2014 WENDY BOLTON, CHUY S 788.63 URINARY URGENCY 02/20/2014 WENDY BOLTON, CHUY S 788.63 URINARY URGENCY 12/13/2014 Ot 591 12/13/2014 Ot 595.9 12/13/2014 Ot 595.2 12/13/2014 Ot 591 12/13/2014 GOKUL DIAZ Ot 682.2 CELLULITIS OF TRUNK 01/28/2015 Ot 591 01/28/2015 Ot 595.9 01/28/2015 Ot 595.2 01/28/2015 Ot 591 01/28/2015 DICK HARTMANN DO Ot 380.4 IMPACTED CERUMEN 01/28/2015 DICK HARTMANN DO Ot 388.70 OTALGIA NOS 01/28/2015 Ot 591 01/28/2015 Ot 595.9 01/28/2015 Ot 595.2 01/28/2015 Ot 591 05/06/2015 Ot 591 05/06/2015 Ot 595.9 05/06/2015 Ot 595.2 05/06/2015 Ot 591 01/25/2016 Ot 591 HYDRONEPHROSIS 01/25/2016 Ot 595.9 CYSTITIS NOS 01/25/2016 Ot 595.2 CHRONIC CYSTITIS NEC 01/25/2016 Ot 591 HYDRONEPHROSIS 02/22/2016 Ot 591 HYDRONEPHROSIS 02/22/2016 Ot 595.9 CYSTITIS NOS 02/22/2016 Ot 595.2 CHRONIC CYSTITIS NEC 02/22/2016 Ot 591 HYDRONEPHROSIS 02/23/2016 DICK HARTMANN DO Ot 380.4 IMPACTED CERUMEN 02/23/2016 DICK HARTMANN DO Ot 388.70 OTALGIA NOS 04/12/2016 Ot 591 HYDRONEPHROSIS 04/12/2016 Ot 595.9 CYSTITIS NOS 04/12/2016 Ot 595.2 CHRONIC CYSTITIS NEC 04/12/2016 Ot 591 HYDRONEPHROSIS 04/19/2016 CHUY NGUYEN Ot M41.9 SCOLIOSIS, UNSPECIFIED 04/26/2016 CHUY NGUYEN Ot M41.9 SCOLIOSIS, UNSPECIFIED 06/10/2016 Ot 591 HYDRONEPHROSIS 06/10/2016 Ot 595.9 CYSTITIS NOS 06/10/2016 Ot 595.2 CHRONIC CYSTITIS NEC 06/10/2016 Ot 591 HYDRONEPHROSIS 06/10/2016 NILTON MEDELLIN MD Ot F17.210 NICOTINE DEPENDENCE, CIGARETTES, UNCOMPL 06/10/2016 NILTON MEDELLIN MD Ot K56.60 UNSPECIFIED INTESTINAL OBSTRUCTION 06/10/2016 NILTON MEDELLIN MD Ot K80.20 CALCULUS OF GALLBLADDER W/O CHOLECYSTITI 06/10/2016 NILTON MEDELLIN MD Ot R10.11 RIGHT UPPER QUADRANT PAIN 06/10/2016 NILTON MEDELLIN MD Ot Z53.29 PROC/TRTMT NOT CRD OUT BEC PT DECISION F 06/10/2016 NILTON MEDELLIN MD Ot Z85.528 PERSONAL HISTORY OF OTHER MALIGNANT NEOP 06/10/2016 NILTON MEDELLIN MD Ot Z90.5 ACQUIRED ABSENCE OF KIDNEY 06/10/2016 Ot 591 HYDRONEPHROSIS 06/10/2016 Ot 595.9 CYSTITIS NOS 06/10/2016 Ot 595.2 CHRONIC CYSTITIS NEC 06/10/2016 Ot 591 HYDRONEPHROSIS 06/13/2016 NILTON MEDELLIN MD Ot F17.210 NICOTINE DEPENDENCE, CIGARETTES, UNCOMPL 06/13/2016 NILTON MEDELLIN MD Ot K56.60 UNSPECIFIED INTESTINAL OBSTRUCTION 06/13/2016 NILTON MEDELLIN MD Ot K80.20 CALCULUS OF GALLBLADDER W/O CHOLECYSTITI 06/13/2016 NILTON MEDELLIN MD Ot R10.11 RIGHT UPPER QUADRANT PAIN 06/13/2016 NILTON MEDELLIN MD Ot Z53.29 PROC/TRTMT NOT CRD OUT BEC PT DECISION F 06/13/2016 NILTON MEDELLIN MD Ot Z85.528 PERSONAL HISTORY OF OTHER MALIGNANT NEOP 06/13/2016 NILTON MEDELLIN MD Ot Z90.5 ACQUIRED ABSENCE OF KIDNEY 06/23/2016 Ot 591 HYDRONEPHROSIS 06/23/2016 Ot 595.9 CYSTITIS NOS 06/23/2016 Ot 595.2 CHRONIC CYSTITIS NEC 06/23/2016 Ot 591 HYDRONEPHROSIS 06/29/2016 CHUY NGUYEN Ot Z12.31 ENCNTR SCREEN MAMMOGRAM FOR MALIGNANT NE 02/22/2017 Ot 591 HYDRONEPHROSIS 02/22/2017 Ot 595.9 CYSTITIS NOS 02/22/2017 Ot 595.2 CHRONIC CYSTITIS NEC 02/22/2017 Ot 591 HYDRONEPHROSIS 02/22/2017 CHUY NGUYEN Ot Z12.31 ENCNTR SCREEN MAMMOGRAM FOR MALIGNANT NE 02/22/2017 CHUY NGUYEN Ot R92.8 OTH ABN AND INCONCLUSIVE FINDINGS ON DX 02/25/2017 MAGDA OCONNOR APRN Ot Z04.3 ENCOUNTER FOR EXAM AND OBSERVATION FOLLO 02/27/2017 MAGDA OCONNOR APRN Ot F17.210 NICOTINE DEPENDENCE, CIGARETTES, UNCOMPL 02/27/2017 MAGDA OCONNOR APRN Ot F41.9 ANXIETY DISORDER, UNSPECIFIED 02/27/2017 MAGDA OCONNOR APRN Ot M19.90 UNSPECIFIED OSTEOARTHRITIS, UNSPECIFIED 02/27/2017 MAGDA OCONNOR APRN Ot M54.9 DORSALGIA, UNSPECIFIED 02/27/2017 MAGDA OCONNOR APRN Ot S32.030A WEDGE COMPRESSION FRACTURE OF THIRD LUMB 02/27/2017 MAGDA OCONNOR APRN Ot W10.9XXA FALL (ON) (FROM) UNSPECIFIED STAIRS AND 02/27/2017 MAGDA OCONNOR APRN Ot W22.09XA STRIKING AGAINST OTHER STATIONARY OBJECT 02/27/2017 MAGDA OCONNOR APRN Ot Z85.528 PERSONAL HISTORY OF OTHER MALIGNANT NEOP 02/27/2017 MAGDA OCONNOR APRN Ot Z87.448 PERSONAL HISTORY OF OTHER DISEASES OF UR 02/27/2017 MAGDA OCONNOR APRN Ot Z87.59 PERSONAL HISTORY OF COMP OF PREG, CHLDBR 02/27/2017 MAGDA OCONNOR APRN Ot Z90.5 ACQUIRED ABSENCE OF KIDNEY Procedures Code Description [place] [address] ROUTINE VENIPUNCTURE 08/16/2012 69717 ESR/SED RATE 08/16/2012 38713 CBC 08/16/2012 08475 CMP 08/16/2012 [id number] GFR CALC (RESULT ONLY) 08/16/2012 14532 VITAMIN D 25-HYDROXY (D2,D3 , TOTAL) 08/16/2012 86070 UA W/MICROSCOPY 08/16/2012 01533 CULTURE URINE 08/19/2012 40310 XRAY CHEST 2 VIEW 2012 Urology Nico Alan 2012 02317 XRAY LUMBAR SPINE 2 OR 3 VIEWS 08/29/2012 08278 XRAY THORACIC SPINE 3 VIEWS 08/30/2012 Orthopedi Reveal, Timo 09/04/2012 04614 XRAY THORACIC SPINE 3 VIEWS 11/09/2012 68184 ROUTINE VENIPUNCTURE 03/04/2013 43709 CMP 03/04/2013 3571522 GFR CALC (RESULT ONLY) 03/04/2013 80238 JOINT INJECTION- INTERMEDIATE JOINT 04/11/2013 46197 JOINT INJECTION - SMALL JOINT 07/18/2013 JOINT INJECTION- INTERMEDIATE JOINT 07/18/2013 61840 UA W/ CULTURE IF INDICATED 07/24/2013 65931 ROUTINE VENIPUNCTURE 07/26/2013 41638 CULTURE URINE 07/26/2013 07737 CBC 07/26/2013 0739343 GFR CALC (RESULT ONLY) 07/26/2013 40034 CMP 07/26/2013 62230 LIPID PANEL 07/26/2013 40487 TSH 07/26/2013 65298 UA W/ CULTURE IF INDICATED 09/23/2013 74857 CULTURE URINE 09/25/2013 54378 JOINT INJECTION- INTERMEDIATE JOINT 10/24/2013 J1100 DEXAMETHASONE SODIUM PHOS, 1 MG 10/24/2013 45736 UA W/ CULTURE IF INDICATED 02/20/2014 37127 CULTURE URINE 02/22/2014 58202 AMERITOX 09/09/2014 07361 UA LONG DIP 09/09/2014 54566 CULTURE URINE 09/11/2014 Results Test Result Range Complete blood count (CBC) with automated white blood cell (WBC) differential - 06/10/16 07:00 Blood leukocytes automated count (number/volume) 17.4 10*3/uL 4.3-11.0 Blood erythrocytes automated count (number/volume) 4.51 10*6/uL 4.35-5.85 Venous blood hemoglobin measurement (mass/volume) 14.7 g/dL 11.5-16.0 Blood hematocrit (volume fraction) 43 % 35-52 Automated erythrocyte mean corpuscular volume 95 [foz_us] 80-99 Automated erythrocyte mean corpuscular hemoglobin (mass per erythrocyte) 33 pg 25-34 Automated erythrocyte mean corpuscular hemoglobin concentration measurement ( mass/volume) 34 g/dL 32-36 Automated erythrocyte distribution width ratio 13.1 % 10.0-14.5 Automated blood platelet count (count/volume) 394 10*3/uL 130-400 Automated blood platelet mean volume measurement 9.2 [foz_us] 7.4-10.4 Automated blood neutrophils/100 leukocytes 88 % 42-75 Automated blood lymphocytes/100 leukocytes 4 % 12-44 Blood monocytes/100 leukocytes 7 % 0-12 Automated blood eosinophils/100 leukocytes 0 % 0-10 Automated blood basophils/100 leukocytes 0 % 0-10 Blood neutrophils automated count (number/volume) 15.4 10*3 1.8-7.8 Blood lymphocytes automated count (number/volume) 0.8 10*3 1.0-4.0 Blood monocytes automated count (number/volume) 1.2 10*3 0.0-1.0 Automated eosinophil count 0.1 10*3/uL 0.0-0.3 Automated blood basophil count (count/volume) 0.0 10*3/uL 0.0-0.1 Comprehensive metabolic panel - 06/10/16 07:00 Serum or plasma sodium measurement (moles/volume) 138 mmol/L 135-145 Serum or plasma potassium measurement (moles/volume) 4.1 mmol/L 3.6-5.0 Serum or plasma chloride measurement (moles/volume) 104 mmol/L 98-107 Carbon dioxide 24 mmol/L 21-32 Serum or plasma anion gap determination (moles/volume) 10 mmol/L 5-14 Serum or plasma urea nitrogen measurement (mass/volume) 14 mg/dL 7-18 Serum or plasma creatinine measurement (mass/volume) 0.78 mg/dL 0.60-1.30 Serum or plasma urea nitrogen/creatinine mass ratio 18 NRG Serum or plasma creatinine measurement with calculation of estimated glomerular filtration rate > NRG Serum or plasma glucose measurement (mass/volume) 123 mg/dL 70-105 Serum or plasma calcium measurement (mass/volume) 9.7 mg/dL 8.5-10.1 Serum or plasma total bilirubin measurement (mass/volume) 0.3 mg/dL 0.1-1.0 Serum or plasma alkaline phosphatase measurement (enzymatic activity/volume) 86 U/L 40-136 Serum or plasma aspartate aminotransferase measurement (enzymatic activity/ volume) 27 U/L 5-34 Serum or plasma alanine aminotransferase measurement (enzymatic activity/volume ) 17 U/L 0-55 Serum or plasma protein measurement (mass/volume) 7.2 g/dL 6.4-8.2 Serum or plasma albumin measurement (mass/volume) 4.4 g/dL 3.2-4.5 Blood manual differential performed detection - 06/10/16 07:00 Blood monocytes/100 leukocytes 7 % NRG Manual blood segmented neutrophils/100 leukocytes 91 % NRG Manual blood lymphocytes/100 leukocytes 2 % NRG Blood erythrocyte morphology finding identification NORMAL NRG Encounters ACCT No. Visit Date/Time Discharge Status Pt. Type Provider Facility Loc./Unit Complaint [id number] 09/09/2014 08:47:00 09/09/2014 23:59:59 CLS Outpatient CHUY NGUYEN APRN [id number] 02/20/2014 10:37:00 02/20/2014 23:59:59 CLS Outpatient CHUY NGUYEN APRN [id number] 10/24/2013 13:54:00 10/24/2013 23:59:59 CLS Outpatient TUAN MTZ DO [id number] 09/23/2013 08:45:00 09/23/2013 23:59:59 CLS Outpatient CHUY NGUYEN APRN [id number] 07/26/2013 08:01:00 07/26/2013 23:59:59 CLS Outpatient CHUY NGUYEN APRN S [id number] 07/18/2013 13:27:00 07/18/2013 23:59:59 CLS Outpatient TUAN MTZ DO [id number] 04/11/2013 15:24:00 04/11/2013 23:59:59 CLS Outpatient TUAN MTZ DO [id number] 08/22/2012 11:49:00 08/22/2012 23:59:59 CLS Outpatient CHUY NGUYEN APRN [id number] 08/16/2012 11:48:00 08/16/2012 23:59:59 CLS Outpatient CHUY NGUYEN APRN [id number] 01/26/2012 12:12:00 01/26/2012 23:59:59 CLS Outpatient [id number] 03/04/2013 08:49:00 Document Registration [id number] 02/25/2017 09:14:00 02/25/2017 23:59:59 CLS Outpatient LEXI BARR MD [facility] RAD CLOSED COMPRESSION FRACTURE [id number] 02/22/2017 20:32:00 02/22/2017 23:22:00 DIS Outpatient MAGDA OCONNOR APRN [facility] ER PT FELL,LT EAR INJ,BACK PAIN [id number] 07/15/2016 07:26:00 07/15/2016 23:59:59 CLS Outpatient CHUY NGUYEN [facility] RAD ABNORMAL MAMMO OF LEFT BREAST [id number] 06/28/2016 08:35:00 06/28/2016 23:59:59 CLS Outpatient CHUY NGUYEN [facility] RAD SCREENING [id number] 06/10/2016 05:45:00 06/10/2016 09:36:00 DIS Emergency NILTON MEDELLIN MD [facility] ER POSS GALLBLADDER PAIN [id number] 04/12/2016 08:26:00 04/26/2016 13:49:00 DIS Outpatient CHUY NGUYEN [facility] REHAB SEVERE SCOLIOSIS THORACIC AND LUMBAR SPINE [id number] 01/28/2015 06:16:00 01/28/2015 06:59:00 DIS Emergency MARY KATE DO, DICK K [facility] ER RT EAR PAIN,FEVER [id number] 12/13/2014 11:24:00 12/13/2014 12:43:00 DIS Emergency GOKUL DIAZ [facility] ER BUG BITE [id number] 11/13/2013 15:45:00 11/14/2013 12:50:00 DIS Inpatient ABDULAZIZ GRAVES MD [facility] SURGICAL SBO, CHOLELITHIASIS , RUQ PX, UTI [id number] 10/28/2013 10:43:00 10/28/2013 13:45:00 DIS Emergency DOTTIE SANCHEZ MD [facility] ER ABD PAIN [id number] 07/15/2013 12:31:00 07/15/2013 13:40:00 DIS Emergency MAGDA OCONNOR JUNIOR PHP DEVELOPER [facility] ER RIGHT HAND PAIN [id number] 12/13/2014 11:25:00 Document Registration [id number] 09/27/2012 12:49:00 Document Registration [id number] 09/04/2012 11:44:00 Document Registration [id number] 08/29/2012 10:32:00 Document Registration [id number] 01/20/2012 07:17:00 Document Registration
== END 2017-07-13 13:41 | disposition left against medical advice (07) ==
LOC: EDUNIT# 13:18 → ER 13:20
DX: M54.9 Dorsalgia, unspecified (principal)

== ENCOUNTER 2018-06-07 12:54 | Emergency (ER) | payer SELFPAY ==
[~2018-06-07] VITALS: Ht 167.6 cm; Wt 77.1 kg
[~2018-06-07 12:54] MED LIST changes: +HYDR-4226 PO; -HYDR-757 PO
--- NOTE | 2018-06-07 13:12 | ED Lower Extremity ---
General Chief Complaint: Lower Extremity Stated Complaint: R FOOT PAIN Source: patient Exam Limitations: no limitations History of Present Illness Date Seen by Provider: Jun 07, 2018 Time Seen by Provider: 13:10 Initial Comments To ER with reports of right foot pain. She was just walking this morning when she felt a pop at the base of her third and fourth toe. She did not fall or twist her foot or step unusually. Onset: just prior to arrival Severity: moderate Pain/Injury Location: right foot, right 2nd toe, right 3rd toe Method of Injury: unknown Modifying Factors: Worse With Movement Allergies and Home Medications Allergies Coded Allergies: Sulfa (Sulfonamide Antibiotics) (Unverified Allergy, Unknown, 11/13/13) aspirin (Unverified Allergy, Unknown, 11/13/13) Home Medications Docusate Sodium 100 Mg Capsule, 100 MG PO DAILY PRN for CONSTIPATION, (Reported) NEEDED FOR CONSTIPATION Gabapentin 300 Mg Capsule, 600 MG PO TID, (Reported) TAKES 2 (300MG) CAPSULES Hydrocodone/Acetaminophen 1 Each Tablet, 1 EACH PO Q4H PRN for PAIN-MODERATE TO SEVERE Prescribed by: MAGDA OCONNOR on 02/22/172205 Piroxicam 10 Mg Capsule, 10 MG PO BID, (Reported) Patient Home Medication List Home Medication List Reviewed: Yes Review of Systems Constitutional: see HPI EENTM: see HPI Respiratory: no symptoms reported Cardiovascular: no symptoms reported Genitourinary: no symptoms reported Musculoskeletal: no symptoms reported Skin: no symptoms reported Psychiatric/Neurological: No Symptoms Reported Past Qspdobf-Mekxaw-Kdwsji Hx Patient Social History Type Used: Cigarettes Recent Hopitalizations: No Immunizations Up To Date Tetanus Booster (TDap): Unknown Date of Influenza Vaccine: Mar 26, 2012 Past Medical History Surgeries: Yes Section, Nephrectomy Respiratory: No Cardiac: No Neurological: No [employer] History: Menopausal Kidney Infection Gastrointestinal: No Musculoskeletal: Yes (RESTLESS LEG SYNDROME) Arthritis Endocrine: No Cancer: Yes (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 oz. 75.176714fj; BMI Method:Stated General Appearance: WD/WN, no apparent distress HEENT: PERRL/EOMI, normal ENT inspection Respiratory: no respiratory distress, no accessory muscle use Hips: bilateral hip non-tender, bilateral hip normal inspection, bilateral hip normal range of motion Legs: bilateral leg non-tender, bilateral leg normal inspection, bilateral leg normal range of motion Knees: bilateral knee non-tender, bilateral knee normal inspection, bilateral knee normal range of motion Ankles: bilateral ankle non-tender, bilateral ankle normal inspection, bilateral ankle normal range of motion Feet: right foot other (tenderness at the foot just proximal to the second third and fourth MTP joint with questionable swelling) Neurologic/Psychiatric: alert, normal mood/affect, oriented x 3 Skin: normal color, warm/dry Progress/Results/Core Measures Results/Orders My Orders Orders - MAGDA OCONNOR APRN Foot, Right, 3 View (06/07/18 13:09) Vital Signs/I&O 06/07/18 13:06 Temp 95.9 Pulse 71 Resp 18 B/P (MAP) 103/72 (82) Pulse Ox 100 Departure Impression Primary Impression: Right foot pain Disposition: 01 HOME, SELF-CARE Condition: Stable Departure-Patient Inst. Decision time for Depature: 13:26 Referrals: CHUY NGUYEN (PCP/Family) Primary Care Physician Patient Instructions: Contusion (DC) Add. Discharge Instructions: All discharge instructions reviewed with patient and/or family. Voiced understanding. MAGDA OOCNNOR APRN Jun 07, 2018 13:12
--- OUTSIDE RECORDS SUMMARY | 2018-06-07 13:19 | XMS REPORT ---
Author Author CHUY NGUYEN Organization 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 Active 283381232558986 Problem Need for prophylaxis against urinary tract infection Z29.8 Active 688841656 Problem Major depressive disorder, single episode, unspecified F32.9 Active 82255128 Problem Scoliosis, unspecified scoliosis type, unspecified spinal region M41.9 Active 169524867 Problem Abnormal mammogram of left breast R92.8 Active 570529437 Problem Calculus of gallbladder without cholecystitis without obstruction K80.20 Active 601012851 ALLERGIES No Information ENCOUNTERS Encounter Location Date Diagnosis [facility] [id number], [place] [address] May, 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 [id number], [place] [address] 18 Feb, 2018 [facility] [id number] [place] [address] 10461- 7516 14 Feb, 2018 Other chronic pain G89.29 and Myalgia M79.1 [facility] [address] [address]- [address] 30 Jan, 2018 [facility] [address] 87982- 8851 Jan, Right hip pain M25.551 and Opioid use disorder, mild, in controlled environment F11.10 [facility] [address] 06129- 5636 Jan, Other chronic pain G89.29 and Myalgia M79.1 [facility] [id number] [place] [address] 08647- 0088 16 Jan, 2018 Urinary tract infection without hematuria, site unspecified N39.[address] [address]- [address] 13 Jan, 2018 Therapeutic drug monitoring Z51.81 ; Scoliosis, unspecified scoliosis type, unspecified spinal region M41.9 ; Chronic prescription opiate use Z79.891 ; Dysthymia F34.1 ; Alcohol use Z78.9 and Frequent urinary tract infections N39.0 [facility] [id number] [place] [address] 76108- 7035 Dec, Other chronic pain G89.29 and Myalgia M79.1 [facility] [id number] [place] [address] 15991- 7695 Dec, Impacted cerumen, right ear H61.21 and Dysfunction of right eustachian tube H69.81 [facility] [id number] [place] [address] 60601- 7801 Nov, Myalgia M79.1 and Other chronic pain G89.29 [facility] [id number] [place] [address] 55348- 0054 October, Other chronic pain G89.29 and Myalgia M79.1 [facility] [id number] [place] [address] 56105- 9216 Sep, Other chronic pain G89.29 [facility] [id number] [place] [address] 98129- 9939 Aug, Other chronic pain G89.29 [facility] [id number] [place] [address] 02746- 4257 Aug, Scoliosis (and kyphoscoliosis), idiopathic M41.20 [facility] [id number] [place] [address] 32556- 0620 Aug, [facility] [address] 39080- 6157 12 Aug, 2017 Dysuria R30.0 ; Scoliosis, unspecified scoliosis type, unspecified spinal region M41.9 ; Encounter for therapeutic drug level monitoring Z51.81 and Alcohol use Z78.9 [facility] [id number] [place] [address] 96532- 9760 Aug, Other chronic pain G89.29 [facility] [id number] [place] [address] 48957- 5506 Jul, Chronic urinary tract infection N39.0 [facility] [id number] [place] [address] 09996- 0321 07 Jul, 2017 Other chronic pain G89.29 [facility] [id number] [place] [address] 88811- 8407 Jun, [facility] [id number] [place] [address] 27366- 9511 Jun, [facility] [id number] [place] [address] 52795- 2903 Jun, Acute left-sided thoracic back pain M54.6 [facility] [id number] [place] [address] 65682 -6819 Jun, Cough R05 and Acute bilateral thoracic back pain M54.6 [facility] [id number] [place] [address] 06703 -5263 Jun, Back pain, unspecified back location, unspecified back pain laterality, unspecified chronicity M54.9 and Left flank pain R10.9 [facility] [id number] [place] [address] 14844- 6526 Jun, Other chronic pain G89.29 [facility] [id number] [place] [address] 54187- 2263 Jun, Myalgia M79.1 [facility] [address] 61843- 1243 May, Other chronic pain G89.29 [facility] [id number] [place] [address] 98090- 9942 May, Myalgia M79.1 and Fatigue due to exposure, subsequent encounter T73.2XXD [facility] [id number] [place] [address] 32970- 6921 05 May, 2017 Fatigue due to exposure, subsequent encounter T73.2XXD [facility] [id number] [place] [address] 55140- 1737 15 Apr, 2017 Other chronic pain G89.29 and Myalgia M79.1 [facility] [id number] [place] [address] 99575- 9568 08 Apr, 2017 Closed nondisplaced fracture of phalanx of left great toe with routine healing, unspecified phalanx, subsequent encounter S92.405D ; Dysuria R30.0 ; Localized edema R60.0 and 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.50 [facility] [address] 39649- 8091 Mar, Other chronic pain G89.29 and Myalgia M79.1 [facility] [id number] [place] [address] 71622- 1942 Mar, [facility] [address] [place] [address] 15340- 3201 Mar, Dysuria R30.0 ; Other chronic pain G89.29 ; Scoliosis, unspecified scoliosis type, unspecified spinal region M41.9 and Chronic urinary tract infection N39.0 [facility] [address] [place] [address] 25042- 0897 Feb, 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.50 and Myalgia M79.1 [facility] [id number] [place] [address] 57469- 0191 Feb, [facility] [id number] [place] [address] 63746- 8781 Feb, [facility] [id number] [place] [address] 06636- 2905 Feb, Closed compression fracture of L4 lumbar vertebra with routine healing, subsequent encounter S32.040D ; Closed nondisplaced fracture of phalanx of left great toe with routine healing, unspecified phalanx, subsequent encounter S92.405D and Chronic urinary tract infection N39.0 [facility] [address] [place] [address] 93443- 5210 Jan, Closed compression fracture of fourth lumbar vertebra, initial encounter S32.040A [facility] [address], [place] [address]- 1322 Jan, Urinary tract infection, site not specified N39.0 [facility] [address] [place] [address] 88077- 1477 Jan, [facility] [address] [place] [address] 93068- 5105 Jan, [facility] [id number] [place] [address] 69749- 4526 Jan, 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.50 and Myalgia M79.1 [facility] [address] [place] [address] 19342- 8962 Jan, Need for prophylaxis against urinary tract infection Z29.8 and Urinary tract infection, site not specified N39.0 [facility] [address] [place] [address] 62248- 2225 Dec, Urinary tract infection, site not specified N39.0 and Need for prophylaxis against urinary tract infection Z29.8 [facility] [address] [place] [address] 83710- 5774 Dec, Major depressive disorder, single episode, unspecified F32.9 ; Myalgia M79.1 ; 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.50 and emt intermediate 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 Z79.891 [facility] [id number] [place] [address] 48626- 1838 Dec, Other chronic pain G89.29 and Dysuria R30.0 [facility] [id number] [place] [address] 52726- 6050 Nov, emt intermediate 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 Z79.891 [facility] [id number] [place] [address] 18441- 9578 Nov, Acute midline low back pain without sciatica M54.5 and retirement 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 Z79.891 [facility] [id number] [place] [address] 84571- 7521 Nov, [facility] [id number] [place] [address] 00600- 9852 October, [facility] [id number] [place] [address] 23808- 0091 October, [facility] [id number] [place] [address] 53166- 4158 Sep, Right leg pain M79.604 [facility] [id number] [place] [address] 37571- 7501 Sep, [facility] [address] [place] [address] 30420- 4771 Aug, Right leg pain M79.604 [facility] [address] [place] [address] 48855- 0794 Jul, [facility] [id number] [place] [address] 05692- 4783 Jul, 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.50 and Right leg pain M79.604 [facility] [id number] [place] [address] 37256- 5093 Jun, 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.50 [facility] [id number] [place] [address] 35361- 6045 Jun, [facility] [address] 14263- 5039 Jun, Right leg pain M79.604 [facility] [id number] [place] [address] 81930- 4085 Jun, Right leg pain M79.604 [facility] [id number] [place] [address] 40698- 6937 Jun, Abnormal mammogram of left breast R92.8 [place] [place] [id number] [place] [address] 39452- 7008 May, Routine gynecological examination V72.31 ; Breast cancer screening Z12.39 ; Cervical cancer screening Z12.4 ; Colon cancer screening Z12.11 and Calculus of gallbladder without cholecystitis without obstruction K80.20 [facility] [id number] [place] [address] 96713- 3435 May, 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.50 [facility] [id number] [place] [address] 45972- 2762 29 Apr, 2016 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.50 [facility] [id number] [place] [address] 97348- 0453 17 Apr, 2016 Screening, lipid Z13.220 [facility] [address] 59894- 8265 Apr, Other chronic pain G89.29 ; Scoliosis, unspecified scoliosis type, unspecified spinal region M41.9 ; Right leg pain M79.604 ; Major depressive disorder, single episode, unspecified F32.9 ; Fatigue due to exposure, subsequent encounter T73.2XXD ; Dysthymia F34.1 and Screening, lipid Z13.220 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 [id number] [place] [address] 23759- 9892 Nov, 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.50 [facility] [id number] [place] [address] 38668- 9990 October, 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.50 and Scoliosis, unspecified scoliosis type , unspecified spinal region M41.9 [facility] [id number] [place] [address] 38149- 2429 Sep, [facility] [id number] [place] [address] 34354- 5832 Aug, [facility] [id number] [place] [address] 51141- 9072 Aug, 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.50 ; Myalgia M79.1 and Scoliosis M41.9 [facility] [id number] [place] [address] 86511- 9660 Jul, Other chronic pain G89.29 [facility] [id number] [place] [address] 31805- 7185 Jul, Other chronic pain G89.29 [facility] [id number] [place] [address] 55784- 8807 Jul, Impingement syndrome of both shoulders M75.41 [facility] [id number] [place] [address] 55163- 0067 Jun, [facility] [id number] [place] [address] 19996- 8366 Jun, [facility] [id number] [place] [address] 59230- 3085 Jun, Scoliosis (and kyphoscoliosis), idiopathic M41.20 and Other chronic pain G89.29 [facility] [address] [place] [address] 96040 -6549 Jun, Upper respiratory tract infection, unspecified type 465.9 and Rhinorrhea J34.89 [facility] [id number] [place] [address] 11934- 8494 May, [facility] [address] 69422- 9763 May, [facility] [id number] [place] [address] 22215- 3545 Apr, Dysuria R30.0 ; Urinary tract infection, site not specified N39.0 and Hematuria, unspecified R31.9 [facility] [id number] [place] [address] 52041- 5331 Apr, [facility] [address] 60184- 5815 Mar, Family history of early CAD Z82.49 [facility] [address] 58920- 0430 Mar, Other chronic pain G89.29 [facility] [id number] [place] [address] 50671- 9057 Mar, Impingement syndrome of both shoulders M75.41 [facility] [id number] [place] [address] 98295- 0613 Mar, Other chronic pain G89.29 ; Dysthymia F34.1 ; Family history of early CAD Z82.49 ; Dysuria R30.0 and Other specified disorders of Eustachian tube, right ear H69.81 [facility] [id number] [place] [address] 99732- 8598 Mar, [facility] [id number] [place] [address] 64122- 4903 Feb, [facility] [id number] [place] [address] 87461- 2165 Jan, [facility] [id number] [place] [address] 62327- 4988 Jan, Eustachian tube dysfunction 381.81 and Dysthymia 300.4 [facility] [id number] [place] [address] 20613- 4540 Dec, [facility] [id number] [place] [address] 639526- 6816 Nov, Impingement syndrome of both shoulders 726.2 [facility] [id number] [place] [address] 18424- 2666 Nov, [facility] [id number] [place] [address] 27594 2548 Nov, [facility] [id number] [place] [address] 24695- 8011 Nov, Urgency of urination 788.63 [facility] [id number] [place] [address] 19095- 8618 October, [facility] [id number] [place] [address] 19440- 4554 October, [facility] [id number] [place] [address] 76510- 7428 Sep, [facility] [id number] [place] [address] 80171- 4452 Sep, [facility] [address] [place] [address] 81135- 8999 Aug, [facility] [id number] [place] [address] 53328- 2543 Aug, [facility] [address] [place] [address]- 2596 Aug, [facility] [id number] [place] [address] 92257 2546 Aug, [facility] [address], [place] [address]- 2542 Aug, [facility] [id number] [place] [address] 99472- 9588 Aug, [facility] [place] [facility] [address] [facility] [id number] [place] [address]- 9902 Aug, [facility] [place] [facility] [address] [facility] [id number] [place] [address]- 6953 Jul, 2014 [facility] [place] [facility] [address] [facility] [id number] [place] [address]- 1266 Jul, 2014 [facility] [place] [facility] [address] [facility] [id number] [place] [address]- 2335 Jul, 2014 [facility] [place] [facility] [address] [facility] [id number] [place] [address]- 5217 Jul, 2014 [facility] [place] [facility] [address] [facility] [id number] [place] [address]- 9373 Jul, [facility] [place] [facility] [address] [facility] [id number] [place] [address]- 2307 Jul, [facility] [place] [facility] [address] [facility] [id number] [place] [address]- 4552 Jun, [facility] [place] [facility] [address] [facility] [id number] [place] [address]- 8820 Jun, [facility] [place] [facility] [address] [facility] [id number] [place] [address]- 0765 May, [facility] [place] [facility] [address] [facility] [id number] [place] [address]- 8261 May, [facility] [place] [facility] [address] [facility] [id number] [address]- 3464 May, [facility] [place] [facility] [address] [facility] [id number] [place] [address]- 9945 May, [facility] [place] [facility] [address] [facility] [id number] [address]- 8658 Mar, [facility] [place] [facility] [address] [facility] [id number] [place] [address]- 6997 Mar, [facility] [place] [facility] [address] [id number] [place] [address]- 4203 Feb, [facility] [place] [facility] [address] [id number] [place] [address]- 9306 Feb, [facility] [place] [facility] [address] [id number] [place] [address]- 5226 Jan, [facility] [place] [facility] [address] [id number] [place] [address]- 2825 Jan, [facility] [place] [facility] [address] [id number] [place] [address]- 5866 Jan, [facility] [place] [facility] [address] [id number] [place] [address]- 5083 Jan, [facility] [place] [facility] [address] [id number] [place] [address]- 7554 Jan, [facility] [place] [facility] [address] [id number] [place] [address]- 7685 Nov, [facility] [place] [facility] [address] [id number] [place] 6082 Nov, [facility] [place] [facility] [address] [id number] [place] [address]- 0643 October, [facility] [place] [facility] [address] [id number] [place]- 2194 October, [facility] [place] [facility] [address] [id number] [place] [address]- 5440 October, [facility] [place] [facility] [address] [id number] [place] [address]- 0709 October, [facility] [place] [facility] [address] [id number] [place] [address]- 7085 Sep, [facility] [place] [facility] [address] [id number] [place] [address]- 3851 Aug, [facility] [place] [facility] [address] [id number] [place] [address]- 4364 Aug, [facility] [place] [facility] [address] [id number] [place] 5408 Aug, [facility] [place] [facility] [address] [id number] [place] [address]- 4089 Aug, [facility] [place] [facility] [address] [id number] [place] [address]- 8146 Jul, [facility] [place] [facility] [address] [id number] [place] [address] Jul, [facility] [place] [facility] [address] [id number] [place] [address] Jun, [facility] [place] [facility] [address] [id number] [place] [address] Jun, [facility] [place] [facility] [address] [id number] [place] [address] Jun, [facility] [place] [facility] [address] [id number] [place] [address] Jun, [facility] [place] [facility] [address] [id number] [place] [address] Jun, [facility] [place] [facility] [address] [id number] [place] [address] Jun, [facility] [place] [facility] [address] [id number], [place] [address] Mar, [facility] [place] [facility] [address] [id number], [place] [address] Mar, [facility] [place] [facility] [address] [id number] [place] [address] Feb, [facility] [place] [facility] [address] [id number] [place] [address] Feb, [facility] [place] [facility] [address] [id number] [place] [address] Feb, [facility] [place] [facility] [address] [id number] [place] [address] Jan, [facility] [address] [id number] [place] [address] Jan, [facility] [place] [facility] [address] [id number] [place] [address] Dec, [facility] [address] [id number] [place] [address] Nov, [facility] [address] [id number] [place] [address] Sep, [facility] [address] [id number] [place] [address] Aug, [facility] [address] [id number] [place] [address] Aug, [facility] [address] [id number] [place] [address] Aug, [facility] [address] [id number] [place] [address] Jul, [facility] [address] [id number] [place] [address] Jul, [facility] [address] [id number] [place] [address] Jul, [facility] [address] [id number] [place] [address] Jul, [facility] [address] [id number] [place] [address] Jul, [facility] [place] [facility] [address] [id number] [place] [address] Apr, [facility] [place] [facility] [address] [id number] [place] [address] Apr, [facility] [address] [id number] [place] [address] Jan, [facility] [place] [facility] [address] [id number] [place] [address] Jan, [facility] [place] [facility] [address] [id number] [place] [address] Dec, [facility] [place] [facility] [address] [id number] [place] [address] Dec, [facility] [place] [facility] [address] [id number] [place] [address]- [address] Dec, [facility] [place] [facility] [address] [id number] [place] [address] Dec, [facility] [place] [facility] [address] [id number] [place] [address] Dec, [facility] [place] [facility] [address] [id number] [place] [address] October, [facility] [place] [facility] [address] [id number] [place] [address] Aug, [facility] [place] [facility] [address] [id number] [place] [address] Aug, [facility] [place] [facility] [address] [id number] [place] [address] Aug, [facility] [place] [facility] [address] [id number] [place] [address] Jul, [facility] [place] [facility] [address] [id number] [place] [address] May, [facility] [place] [facility] [address] [id number] [place] [address] Apr, [facility] [place] [facility] [address] [id number] [place] [address] May, [facility] [place] [facility] [address] [id number] [place] [address] May, [facility] [place] [facility] [address] [facility] [id number] [place] [address] May, [facility] [address] [facility] [id number], [place] [address] Mar, [facility] [address] [facility] [id number], [place] [address] Mar, [facility] [address] [facility] [id number][place] [id number] Aug, IMMUNIZATIONS No Known Immunizations SOCIAL HISTORY Never Assessed REASON FOR VISIT Requests return call PLAN OF CARE VITAL SIGNS MEDICATIONS Unknown Medications RESULTS No Results PROCEDURES No Known procedures INSTRUCTIONS MEDICATIONS ADMINISTERED No Known Medications MEDICAL (GENERAL) HISTORY Type Description Date Medical History chronic pain Medical History arthritis Surgical History Nephrectomy - age 3 Surgical History Appendectomy Hospitalization History surgery Hospitalization History childbirth x 3
--- OUTSIDE RECORDS SUMMARY | 2018-06-07 13:19 | XMS REPORT ---
Author Author CHUY NGUYEN Organization 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 Active [id number] Problem Need for prophylaxis against urinary tract infection Z29.8 Active 511893445 Problem Major depressive disorder, single episode, unspecified F32.9 Active 84502499 Problem Scoliosis, unspecified scoliosis type, unspecified spinal region M41.9 Active 608788113 Problem Abnormal mammogram of left breast R92.8 Active 109764237 Problem Calculus of gallbladder without cholecystitis without obstruction K80.20 Active 788078913 ALLERGIES No Information ENCOUNTERS Encounter Location Date Diagnosis [place] [id number] [address] May, 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 [id number], [place] [address] 18 Feb, 2018 [place] [id number] [place] [address] 26437- 8463 14 Feb, 2018 Other chronic pain G89.29 and Myalgia M79.1 [place] [address] [address]- 8[address] 30 Jan, 2018 [place] [address] 6[address]- 7770 Jan, Right hip pain M25.551 and Opioid use disorder, mild, in controlled environment F11.10 [place] [address] 50914- 5685 Jan, Other chronic pain G89.29 and Myalgia M79.1 [place] [id number] [place] [address] 16605- 5109 16 Jan, 2018 Urinary tract infection without hematuria, site unspecified N39.[address] [address]- [address] 13 Jan, 2018 Therapeutic drug monitoring Z51.81 ; Scoliosis, unspecified scoliosis type, unspecified spinal region M41.9 ; Chronic prescription opiate use Z79.891 ; Dysthymia F34.1 ; Alcohol use Z78.9 and Frequent urinary tract infections N39.0 [place] [id number] [place] [address] 23313- 5882 Dec, Other chronic pain G89.29 and Myalgia M79.1 [place] [id number] [place] [address] 74361- 8951 Dec, Impacted cerumen, right ear H61.21 and Dysfunction of right eustachian tube H69.81 [place] [id number] [place] [address] 07360- 1466 Nov, Myalgia M79.1 and Other chronic pain G89.29 [place] [id number] [place] [address] 77950- 8097 October, Other chronic pain G89.[address] [facility] [id number] [place] [address] 47474- 2731 Sep, Other chronic pain G89.29 [facility] [id number] [place] [address] 62744- 4883 Aug, Other chronic pain G89.29 [facility] [id number] [place] [address] 95387- 2735 Aug, Scoliosis (and kyphoscoliosis), idiopathic M41.20 [facility] [id number] [place] [address] 13140- 5228 Aug, [place] [address] 61403- 2989 12 Aug, 2017 Dysuria R30.0 ; Scoliosis, unspecified scoliosis type, unspecified spinal region M41.9 ; Encounter for therapeutic drug level monitoring Z51.81 [address] Z[address]9 [facility] [id number] [place] [address] 59780- 9503 Aug, Other chronic pain G89.29 [facility] [id number] [place] [address] 90341- 2046 Jul, Chronic urinary tract infection N39.0 [facility] [id number] [place] [address] 85795- 8842 07 Jul, 2017 Other chronic pain G89.29 [facility] [id number] [place] [address] 75961- 8003 Jun, [facility] [id number] [place] [address] 76401- 9281 Jun, [facility] [id number] [place] [address] 76131- 0369 Jun, Acute left-sided thoracic back pain M54.6 [facility] [id number] [place] [address] 97221 -3893 Jun, Cough R05 and Acute bilateral thoracic back pain M54.6 [facility] WALK IN [facility] [id number] [place] [address] 46302 -9119 Jun, Back pain, unspecified back location, unspecified back pain laterality, unspecified chronicity M54.9 and Left flank pain R10.9 [place] [id number] [place] [address] 11705- 1432 Jun, Other chronic pain G89.29 [place] [id number] [place] [address] 23075- 7806 Jun, Myalgia M79.1 [place] [address] 55553- 6384 May, Other chronic pain G89.29 [place] [id number] [place] [address] 78675- 6102 May, Myalgia M79.1 and Fatigue due to exposure, subsequent encounter T73.2XXD [place] [id number] [place] [address] 35540- 9477 05 May, 2017 Fatigue due to exposure, subsequent encounter T73.2XXD [place] [id number] [place] [address] 76902- 6898 15 Apr, 2017 Other chronic pain G89.29 and Myalgia M79.1 [place] [id number] [place] [address] 17175- 5926 08 Apr, 2017 Closed nondisplaced fracture of phalanx of left great toe with routine healing, unspecified phalanx, subsequent encounter S92.405D ; Dysuria R30.0 ; Localized edema R60.0 and 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.50 [place] [address] 11346- 8275 Mar, Other chronic pain G89.29 and Myalgia M79.1 [place] [id number] [place] [address] 89537- 0707 Mar, [place] [address] [place] [address] 09317- 7860 Mar, Dysuria R30.0 ; Other chronic pain G89.29 ; Scoliosis, unspecified scoliosis type, unspecified spinal region M41.9 and Chronic urinary tract infection N39.0 [facility] [id number] [place] [address] 57193- 3574 Feb, 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.[address] [facility] [id number] [place] [address] 45626- 9801 Feb, [place] [id number] [place] [address] 61250- 2672 Feb, [place] [id number] [place] [address] 53787- 2073 Feb, Closed compression fracture of L4 lumbar vertebra with routine healing, subsequent encounter S32.040D ; Closed nondisplaced fracture of phalanx of left great toe with routine healing, unspecified phalanx, subsequent encounter S92.405D and Chronic urinary tract infection N39.0 [place] [id number] [place] [address] 02237- 6549 Jan, Closed compression fracture of fourth lumbar vertebra, initial encounter S32.040A [place] [address], [place] [address]- 0954 Jan, Urinary tract infection, site not specified N39.0 [facility] [id number] [place] [address] 26178- 7550 Jan, [facility] [id number] [place] [address] 47981- 5720 Jan, [facility] [id number] [place] [address] 18528- 2181 Jan, 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.[address] [facility] [address] [place] [address] 02198- 6326 Jan, Need for prophylaxis against urinary tract infection Z29.8 and Urinary tract infection, site not specified N39.0 [facility] [id number] [place] [address] 65632- 9392 Dec, Urinary tract infection, site not specified N39.0 and Need for prophylaxis against urinary tract infection Z29.8 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 [id number] [place] [address] 34192- 5395 October, [facility] [id number] [place] [address] 82215- 3586 October, [facility] [id number] [place] [address] 92550- 0617 Sep, Right leg pain M79.604 [facility] [id number] [place] [address] 29340- 3796 Sep, [facility] [id number] [place] [address] 22161- 7024 Aug, Right leg pain M79.604 [place] [address] [place] [address] 86257- 5404 Jul, [place] [id number] [place] [address] 67512- 1392 Jul, 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.50 and Right leg pain M79.604 [place] [id number] [place] [address] 28440- 6379 Jun, 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.50 [place] [id number] [place] [address] 93895- 5563 Jun, [place] [address] 28280- 7239 Jun, Right leg pain M79.604 [place] [id number] [place] [address] 33460- 1950 Jun, Right leg pain M79.604 [place] [id number] [place] [address] 19795- 7794 Jun, Abnormal mammogram of left breast R92.8 [place] [id number] [place] [address] 58632- 4948 May, Routine gynecological examination V72.31 ; Breast cancer screening Z12.39 ; Cervical cancer screening Z12.4 ; Colon cancer screening Z12.11 and Calculus of gallbladder without cholecystitis without obstruction K80.20 [place] [id number] [place] [address] 04895- 7317 May, 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.50 [place] [id number] [place] [address] 00346- 7199 29 Apr, 2016 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.50 [place] [id number] [place] [address] 34564- 0463 17 Apr, 2016 Screening, lipid Z13.220 [place] [address] 60121- 3369 Apr, Other chronic pain G89.29 ; Scoliosis, unspecified scoliosis type, unspecified spinal region M41.9 ; Right leg pain M79.604 ; Major depressive disorder, single episode, unspecified F32.9 ; Fatigue due to exposure, subsequent encounter T73.2XXD ; Dysthymia F34.1 and Screening, lipid Z13.220 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 [id number] [place] [address] 56240- 1131 Nov, 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.50 [facility] [id number] [place] [address] 85528- 6046 October, 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.50 and Scoliosis, unspecified scoliosis type , unspecified spinal region M41.9 [place] [id number] [place] [address] 97118- 8925 Sep, [facility] [id number] [place] [address] 38811- 9104 Aug, [place] [id number] [place] [address] 68694- 3336 Aug, 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.50 ; Myalgia M79.1 and Scoliosis M41.9 [place] [id number] [place] [address] 14770- 4751 Jul, Other chronic pain G89.29 [place] [id number] [place] [address] 52037- 2291 Jul, Other chronic pain G89.29 [place] [id number] [place] [address] 02371- 4621 Jul, Impingement syndrome of both shoulders M75.41 [place] [id number] [place] [address] 96061- 8836 Jun, [facility] [id number] [place] [address] 41620- 2853 Jun, [facility] [id number] [place] [address] 30218- 4681 Jun, Scoliosis (and kyphoscoliosis), idiopathic M41.20 and Other chronic pain G89.29 [facility] [address] [place] [address] 95666 -4439 Jun, Upper respiratory tract infection, unspecified type 465.9 and Rhinorrhea J34.89 [place] [id number] [place] [address] 97246- 4448 May, [place] [address] 30171- 9444 May, [place] [id number] [place] [address] 59250- 5127 Apr, Dysuria R30.0 ; Urinary tract infection, site not specified N39.0 and Hematuria, unspecified R31.9 [place] [id number] [place] [address] 18787- 8610 Apr, [place] [address] 13486- 2159 Mar, Family history of early CAD Z82.49 [place] [address] 59980- 1804 Mar, Other chronic pain G89.29 [place] [id number] [place] [address] 85713- 4656 Mar, Impingement syndrome of both shoulders M75.41 [place] [id number] [place] [address] 11100- 9220 Mar, Other chronic pain G89.29 ; Dysthymia F34.1 ; Family history of early CAD Z82.49 ; Dysuria R30.0 and Other specified disorders of Eustachian tube, right ear H69.81 [place] [id number] [place] [address] 50457- 0054 Mar, [place] [id number] [place] [address] 92858- 4384 Feb, [place] [id number] [place] [address] 59270- 8669 Jan, [place] [id number] [place] [address] 50022- 6546 Jan, Eustachian tube dysfunction 381.[address] [facility] [id number] [place] [address] 47086- 6496 Dec, [facility] [id number] [place] [address] 515068- 9126 Nov, Impingement syndrome of both shoulders 726.2 [facility] [id number] [place] [address] 24444- 9386 Nov, [facility] [id number] [place] [address]5350 2547 Nov, [facility] [id number] [place] [address] 01014- 4631 Nov, Urgency of urination 788.63 [facility] [id number] [place] [address] 39761- 1142 October, [facility] [id number] [place] [address] 47953- 6060 October, [facility] [id number] [place] [address] 00527- 9377 Sep, [facility] [id number] [place] [address] 57983- 2755 Sep, [facility] [address] [place] [address] 38243- 0220 Aug, [facility] [id number] [place] [address] 97594- 2547 Aug, [facility] [address] [address]- 4646 Aug, [facility] [id number] [place] [address] 27613 2546 Aug, [facility] [address] [address]- 2541 Aug, [facility] [id number] [place] [address] 91812- 5363 Aug, [facility] [place] [facility] [address] [facility] [id number] [place] [address]- 9974 Aug, [facility] [place] [facility] [address] [facility] [id number] [place] [address]- 6470 Jul, 2014 [facility] [place] [facility] [address] [facility] [id number] [place] [address]- 7376 Jul, 2014 [facility] [place] [facility] [address] [facility] [id number] [place] [address]- 1615 Jul, 2014 [facility] [place] [facility] [address] [facility] [id number] [place] [address]- 8887 Jul, 2014 [facility] [place] [facility] [address] [facility] [id number] [place] [address]- 8187 Jul, [facility] [place] [facility] [address] [facility] [id number] [place] [address]- 5738 Jul, [facility] [place] [facility] [address] [facility] [id number] [place] [address]- 3747 Jun, [facility] [place] [facility] [address] [facility] [id number] [place] [address]- 5014 Jun, [facility] [place] [facility] [address] [facility] [id number] [place] [address]- 3920 May, [facility] [place] [facility] [address] [facility] [id number] [place] [address]- 9596 May, [facility] [place] [facility] [address] [facility] [id number] [address]- 3350 May, [facility] [place] [facility] [address] [facility] [id number] [place] [address]- 4838 May, [facility] [place] [facility] [address] [facility] [id number] [address]- 1773 Mar, [facility] [place] [facility] [address] [facility] [id number] [place] [address]- 8781 Mar, [facility] [place] [facility] [address] [id number] [place] [address]- 2934 Feb, [facility] [place] [facility] [address] [id number] [place] [address]- 5391 Feb, [facility] [place] [facility] [address] [id number] [place] [address]- 2888 Jan, [facility] [place] [facility] [address] [id number] [place] [address]- 7851 Jan, [facility] [place] [facility] [address] [id number] [place] [address]- 9521 Jan, [facility] [place] [facility] [address] [id number] [place] [address]- 9663 Jan, [facility] [place] [facility] [address] [id number] [place] [address]- 2591 Jan, [facility] [place] [facility] [address] [id number] [place] [address]- 0002 Nov, [facility] [place] [facility] [address] [id number] [place]- 3063 Nov, [facility] [place] [facility] [address] [id number] [place] [address]- 8541 October, [facility] [place] [facility] [address] [id number] [place] 8760 October, [facility] [place] [facility] [address] [id number] [place] [address]- 4896 October, [facility] [place] [facility] [address] [id number] [place] [address]- 4376 October, [facility] [place] [facility] [address] [id number] [place] [address]- 3071 Sep, [facility] [place] [facility] [address] [id number] [place] [address]- 4969 Aug, [facility] [place] [facility] [address] [id number] [place] [address] Aug, [facility] [place] [facility] [address] [id number] [place] [address] Aug, [facility] [place] [facility] [address] [id number] [place] [address] Aug, [facility] [place] [facility] [address] [id number] [place] [address] Jul, [facility] [place] [facility] [address] [id number] [place] [address] Jul, [facility] [place] [facility] [address] [id number] [place] [address] Jun, [facility] [place] [facility] [address] [id number] [place] [address] Jun, [facility] [place] [facility] [address] [id number] [place] [address] Jun, [facility] [place] [facility] [address] [id number] [place] [address] Jun, [facility] [place] [facility] [address] [id number] [place] [address] Jun, [facility] [place] [facility] [address] [id number] [place] [address] Jun, [facility] [place] [facility] [address] [id number] [address] Mar, [facility] [place] [facility] [address] [id number], [place] [address] Mar, [facility] [place] [facility] [address] [id number] [place] [address] Feb, [facility] [place] [facility] [address] [id number] [place] [address] Feb, [facility] [place] [facility] [address] [id number] [place] [address] Feb, [facility] [place] [facility] [address] [id number] [place] [address] Jan, [facility] [address] [id number] [place] [address] Jan, [facility] [place] [facility] [address] [id number] [place] [address] Dec, [facility] [address] [id number] [place] [address] Nov, [facility] [address] [id number] [place] [address] Sep, [facility] [address] [id number] [place] [address] Aug, [facility] [address] [id number] [place] [address] Aug, [facility] [address] [id number] [place] [address] Aug, [facility] [address] [id number] [place] [address] Jul, [facility] [address] [id number] [place] [address] Jul, [facility] [address] [id number] [place] [address] Jul, [facility] [address] [id number] [place] [address] Jul, [facility] [address] [id number] [place] [address] Jul, [facility] [place] [facility] [address] [id number] [place] [address] Apr, [facility] [place] [facility] [address] [id number] [place] [address] Apr, [facility] [address] [id number] [place] [address] Jan, [facility] [facility] [address] [id number] [place] [address] Jan, [facility] [place] [facility] [address] [id number] [place] [address] Dec, [facility] [place] [facility] [address] [id number] [place] [address] Dec, [facility] [place] [facility] [address] [id number] [place] [address] Dec, [facility] [place] [facility] [address] [id number] [place] [address] Dec, [facility] [place] [facility] [address] [id number] [place] [address] Dec, [facility] [place] [facility] [address] [id number] [place] [address] October, [facility] [place] [facility] [address] [id number] [place] [address] Aug, [facility] [place] [facility] [address] [id number] [place] [address] Aug, [facility] [place] [facility] [address] [id number] [place] [address] Aug, [facility] [place] [facility] [address] [id number] [place] [address] Jul, [facility] [place] [facility] [address] [id number] [place] [address] May, [facility] [place] [facility] [address] [id number] [place] [address] Apr, [facility] [place] [facility] [address] [id number] [place] [address] May, [facility] [place] [facility] [address] [id number] [place] [address] May, [facility] [place] [facility] [address] [facility] [id number] [place] [address] May, [facility] [address] [facility] [id number] [address] Mar, [facility] [address] [facility] [id number][place] [address] Mar, [facility] [address] [facility] [id number], [place] [address] Aug, IMMUNIZATIONS No Known Immunizations SOCIAL HISTORY Never Assessed REASON FOR VISIT Controlled Med Refill 03/15/18 PLAN OF CARE VITAL SIGNS MEDICATIONS Medication Instructions Dosage Frequency Start Date End Date Duration Status Percocet 10-325 MG Orally 5 times per day 1 tablet as needed Feb, 28 days Active Lyrica 150 MG Orally 3 times a day 1 capsule 8h Apr, 28 days Active RESULTS No Results PROCEDURES No Known procedures INSTRUCTIONS MEDICATIONS ADMINISTERED No Known Medications MEDICAL (GENERAL) HISTORY Type Description Date Medical History chronic pain Medical History arthritis Surgical History Nephrectomy - age 3 Surgical History Appendectomy Hospitalization History surgery Hospitalization History childbirth x 3
--- OUTSIDE RECORDS SUMMARY | 2018-06-07 13:20 | XMS REPORT ---
Author Author PADMAJA MORGAN Organization [facility] Address [address] 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 Active [id number] Problem Need for prophylaxis against urinary tract infection Z29.8 Active 318422446 Problem Major depressive disorder, single episode, unspecified F32.9 Active 06778668 Problem Scoliosis, unspecified scoliosis type, unspecified spinal region M41.9 Active 627444078 Problem Abnormal mammogram of left breast R92.8 Active 378938205 Problem Calculus of gallbladder without cholecystitis without obstruction K80.20 Active 885555284 ALLERGIES Substance Reaction Event Type Date Status Sulfamethoxazole-Trimethoprim Unknown Drug Allergy Jan, Active Aspirin Unknown Drug Allergy Jan, Active ENCOUNTERS Encounter Location Date Diagnosis [facility] [address] [facility] [id number] [address] May, [facility] [id number] [place] [address] 80531- 6525 Feb, Trochanteric bursitis, right hip M70.61 ; Chondromalacia, right knee M94.261 and 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 [facility] [address] [id number] [address] 4886 18 Feb, 2018 [place] [id number] [place] [address] 22950- 0634 14 Feb, 2018 Other chronic pain G89.29 and Myalgia M79.1 [facility] [id number] [place] [address] 66757- 7537 30 Jan, 2018 [place] [id number] [place] [address] 39863- 6582 Jan, Right hip pain M25.551 and Opioid use disorder, mild, in controlled environment F11.10 [place] [id number] [place] [address] 97674- 1615 Jan, Other chronic pain G89.29 and Myalgia M79.1 [facility] [id number] [place] [address] 01334- 6112 16 Jan, 2018 Urinary tract infection without hematuria, site unspecified N39.0 [facility] [id number] [place] [address] 84694- 0367 13 Jan, 2018 Therapeutic drug monitoring Z51.81 ; Scoliosis, unspecified scoliosis type, unspecified spinal region M41.9 ; Chronic prescription opiate use Z79.891 ; Dysthymia F34.1 ; Alcohol use Z78.9 and Frequent urinary tract infections N39.0 [place] [id number] [place] [address] 89665- 4978 Dec, Other chronic pain G89.29 and Myalgia M79.1 [place] [id number] [place] [address] 80798- 1593 Dec, Impacted cerumen, right ear H61.21 and Dysfunction of right eustachian tube H69.81 [place] [id number] [place] [address] 09702- 0090 Nov, Myalgia M79.1 and Other chronic pain G89.29 [place] [id number] [place] [address] 91656- 3476 October, Other chronic pain G89.29 and Myalgia M79.1 [facility] [id number] [place] [address] 20151- 9085 Sep, Other chronic pain G89.29 [facility] [id number] [place] [address] 31061- 1033 Aug, Other chronic pain G89.29 [facility] [id number] [place] [address] 11207- 1786 Aug, Scoliosis (and kyphoscoliosis), idiopathic M41.20 [facility] [address] 19752- 7120 Aug, [facility] [id number] [place] [address] 04701- 6730 Aug, Dysuria R30.0 ; Scoliosis, unspecified scoliosis type, unspecified spinal region M41.9 ; Encounter for therapeutic drug level monitoring Z51.81 and Alcohol use Z78.9 [facility] [id number] [place] [address] 56277- 3951 Aug, Other chronic pain G89.29 [facility] [id number] [place] [address] 61325- 6085 Jul, Chronic urinary tract infection N39.0 [facility] [id number] [place] [address] 37741- 9906 Jul, Other chronic pain G89.29 [facility] [id number] [place] [address] 50007- 1773 Jun, [facility] [id number] [place] [address] 55296- 0709 Jun, [facility] [id number] [place] [address] 78048- 3511 Jun, Acute left-sided thoracic back pain M54.6 [facility] [id number] [place] [address] 32625 -4975 Jun, Cough R05 and Acute bilateral thoracic back pain M54.6 [facility] [id number] [place] [address] 19966 -4229 Jun, Back pain, unspecified back location, unspecified back pain laterality, unspecified chronicity M54.9 and Left flank pain R10.9 [place] [address] 73145- 5590 Jun, Other chronic pain G89.29 [facility] [address] 15025- 9336 Jun, Myalgia M79.1 [place] [address] 55015- 7771 13 May, 2017 Other chronic pain G89.29 [place] [address] 46404- 4209 07 May, 2017 Myalgia M79.1 and Fatigue due to exposure, subsequent encounter T73.2XXD [facility] [address] 49476- 3931 05 May, 2017 Fatigue due to exposure, subsequent encounter T73.2XXD [facility] [id number] [place] [address] 98127- 3203 15 Apr, 2017 Other chronic pain G89.29 and Myalgia M79.1 [facility] [id number] [place] [address] 79614- 5651 08 Apr, 2017 Closed nondisplaced fracture of phalanx of left great toe with routine healing, unspecified phalanx, subsequent encounter S92.405D ; Dysuria R30.0 ; Localized edema R60.0 and 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.50 [place] [id number] [place] [address] 48676- 2871 Mar, Other chronic pain G89.29 and Myalgia M79.1 [place] [address] 75534- 5493 Mar, [facility] [address] [address] 4202 Mar, Dysuria R30.0 ; Other chronic pain G89.29 ; Scoliosis, unspecified scoliosis type, unspecified spinal region M41.9 and Chronic urinary tract infection N39.0 [facility] [address] [address]- 6716 Feb, 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.50 and Myalgia M79.1 [facility] [address] [address]- 7299 Feb, [facility] [address] [place] [address] 73617- 3960 Feb, [facility] [address] [place] [address] 02296- 4685 Feb, Closed compression fracture of L4 lumbar vertebra with routine healing, subsequent encounter S32.040D ; Closed nondisplaced fracture of phalanx of left great toe with routine healing, unspecified phalanx, subsequent encounter S92.405D and Chronic urinary tract infection N39.0 [facility] [address] [place] [address] 05030- 7597 Jan, Closed compression fracture of fourth lumbar vertebra, initial encounter S32.040A [facility] [address] [address]- 0264 Jan, Urinary tract infection, site not specified N39.0 [facility] [address] [address]- 1905 Jan, [facility] [address] [place] [address] 93993- 3545 Jan, [facility] [address] [address]- 0184 Jan, 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.50 and Myalgia M79.1 [facility] [id number] [place] [address] 52617- 8241 Jan, Need for prophylaxis against urinary tract infection Z29.8 and Urinary tract infection, site not specified N39.0 [facility] [id number] [place] [address] 63888- 2457 Dec, Urinary tract infection, site not specified N39.0 and Need for prophylaxis against urinary tract infection Z29.8 [facility] [id number] [place] [address] 06506- 5170 Dec, Major depressive disorder, single episode, unspecified F32.9 ; Myalgia M79.1 ; 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.50 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 [place] [id number] [place] [address] 13453- 0184 Dec, Other chronic pain G89.29 and Dysuria R30.0 [facility] [id number] [place] [address] 59622- 7434 Nov, [facility] 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 Z79.891 [facility] [id number] [place] [address] 39968- 2779 Nov, Acute midline low back pain without sciatica M54.5 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 [facility] [id number] [place] [address] 89431- 6619 Nov, [facility] [id number] [place] [address] 91074- 8771 October, [facility] [id number] [place] [address] 26078- 3767 October, [facility] [id number] [place] [address] 20168- 2247 Sep, Right leg pain M79.604 [facility] [id number] [place] [address] 97398- 8327 Sep, [facility] [id number] [place] [address] 55644- 4925 Aug, Right leg pain M79.604 [place] [id number] [place] [address] 44402- 0780 Jul, [facility] [id number] [place] [address] 15796- 2095 Jul, 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.50 and Right leg pain M79.604 [place] [id number] [place] [address] 86463- 5291 Jun, 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.50 [place] [id number] [place] [address] 09230- 4790 Jun, [place] [id number] [place] [address] 78657- 8298 Jun, Right leg pain M79.604 [place] [address] 70318- 0298 Jun, Right leg pain M79.604 [place] [id number] [place] [address] 84988- 5232 Jun, Abnormal mammogram of left breast R92.8 [place] [id number] [place] [address] 24961- 7977 May, Routine gynecological examination V72.31 ; Breast cancer screening Z12.39 ; Cervical cancer screening Z12.4 ; Colon cancer screening Z12.11 and Calculus of gallbladder without cholecystitis without obstruction K80.20 [place] [address] [place] [address] 13546- 4498 May, 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.50 [place] [id number] [place] [address] 65705- 7750 Apr, 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.50 [place] [id number] [place] [address] 62093- 2164 Apr, Screening, lipid Z13.220 [place] [id number] [place] [address] 67225- 0874 Apr, Other chronic pain G89.29 ; Scoliosis, unspecified scoliosis type, unspecified spinal region M41.9 ; Right leg pain M79.604 ; Major depressive disorder, single episode, unspecified F32.9 ; Fatigue due to exposure, subsequent encounter T73.2XXD ; Dysthymia F34.1 and Screening, lipid Z13.220 [place] [address] 87350- 5057 Apr, 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.50 [place] [address] 76735- 5283 Mar, Dysthymia 300.4 [place] [address] 14732- 1231 Mar, 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.50 [place] [address] 49709- 4851 Feb, 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.50 [place] [id number] [place] [address] 73174- 1569 Jan, 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.50 [place] [id number] [place] [address] 87678- 0491 Dec, 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 [place] [id number] [place] [address] 09272- 6057 Dec, [place] [id number] [place] [address] 93663- 6338 Dec, Right leg pain M79.604 and Scoliosis, unspecified scoliosis type, unspecified spinal region M41.9 [place] [id number] [place] [address] 01863- 5676 Dec, Right leg pain M79.604 and Scoliosis, unspecified scoliosis type, unspecified spinal region M41.9 [place] [address] [place] [address]- 9531 14 Dec, 2015 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.50 [place] [address] 18598- 8836 Nov, 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.50 [place] [address] 04317- 0840 October, 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.50 and Scoliosis, unspecified scoliosis type , unspecified spinal region M41.9 [facility] [address] 75172- 9635 Sep, [place] [address] 13033- 0515 Aug, [place] [address] 49394- 4757 Aug, 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.50 ; Myalgia M79.1 and Scoliosis M41.9 [place] [id number] [place] [address] 98687- 1922 Jul, Other chronic pain G89.29 [place] [address] 79686- 0366 Jul, Other chronic pain G89.29 [place] [id number] [place] [address] 77786- 1191 Jul, Impingement syndrome of both shoulders M75.41 [place] [id number] [place] [address] 56986- 6992 Jun, [facility] [id number] [place] [address] 85626- 8230 Jun, [place] [address] 95705- 7307 Jun, Scoliosis (and kyphoscoliosis), idiopathic M41.20 and Other chronic pain G89.29 [facility] [address] 00013 -8666 Jun, Upper respiratory tract infection, unspecified type 465.9 and Rhinorrhea J34.89 [facility] [id number] [place] [address] 61562- 0200 May, [facility] [id number] [place] [address] 009376- 3140 May, [facility] [address] 68049- 3700 Apr, Dysuria R30.0 ; Urinary tract infection, site not specified N39.0 and Hematuria, unspecified R31.9 [place] [address] 42956- 3179 Apr, [place] [id number] [place] [address] 05157- 3321 Mar, Family history of early CAD Z82.49 [place] [address] 89242- 4254 Mar, Other chronic pain G89.29 [facility] [address] [place] [address] 08099- 3856 Mar, Impingement syndrome of both shoulders M75.41 [place] [address] [place] [address] 70421- 5692 Mar, Other chronic pain G89.29 ; Dysthymia F34.1 ; Family history of early CAD Z82.49 ; Dysuria R30.0 and Other specified disorders of Eustachian tube, right ear H69.81 [place] [id number] [place] [address] 66158- 5298 Mar, [place] [address] 06094- 0349 Feb, [facility] [id number] [place] [address] 62886- 0709 Jan, [facility] [address] 66262- 8410 Jan, Eustachian tube dysfunction 381.81 and Dysthymia 300.4 [facility] [id number] [place] [address] 59334- 5826 Dec, [facility] [id number] [place] [address] 248573- 2153 Nov, Impingement syndrome of both shoulders 726.2 [facility] [id number] [place] [address] 51235- 2221 Nov, [facility] [id number] [place] [address] 12499- 4082 Nov, [facility] [id number] [place] [address] 36235- 3649 Nov, Urgency of urination 788.63 [facility] [id number] [place] [address] 70695- 1889 October, [facility] [id number] [place] [address] 08526- 3928 October, [facility] [id number] [place] [address] 18224- 5735 Sep, [facility] [address] [address]- 9755 Sep, [facility] [address] [place] [address] 80586- 8033 Aug, [facility] [address] [address]- 0745 Aug, [facility] [address] [place] [address] 85230- 2730 Aug, [facility] [address] 1442 Aug, [facility] [address] 2759 Aug, [facility] [place] [facility] [address] [id number] [place] [address]- 3329 Aug, [facility] [place] [facility] [address] [id number] [place] [address]- 0033 Aug, [facility] [place] [facility] [address] [id number] [place] [address]- 4890 Jul, 2014 [facility] [place] [facility] [address] [id number] [place] [address]- 2076 Jul, [facility] [place] [facility] [address] [id number] [place] [address]- 0350 Jul, 2014 [facility] [place] [facility] [address] [id number] [place] [address]- 7186 Jul, 2014 [facility] [place] [facility] [address] [id number] [place] [address]- 4181 Jul, [facility] [place] [facility] [address] [id number] [place] [address]- 3440 Jul, [facility] [place] [facility] [address] [id number] [place] [address]- 4423 Jun, [facility] [place] [facility] [address] [facility] [id number] [place] [address]- 4870 Jun, [facility] [place] [facility] [address] [id number] [place] [address]- 7454 May, [facility] [place] [facility] [address] [id number] [place] [address]- 0092 May, [facility] [place] [facility] [address] [id number] [place] [address] 2542 May, [facility] [place] [facility] [address] [id number] [place] 3535 May, [facility] [place] [facility] [address] [facility] [id number] [place] [address]- 7588 Mar, [facility] [place] [facility] [address] [id number] [place] [address]- 6424 Mar, [facility] [place] [facility] [address] [id number] [place] [address]- 9276 Feb, [facility] [place] [facility] [address] [id number] [place] [address]- 4964 Feb, [facility] [place] [facility] [address] [id number] [place] [address]- 8592 Jan, [facility] [place] [facility] [address] [id number] [place] [address]- 5667 Jan, [facility] [place] [facility] [address] [id number] [place] [address]- 2224 Jan, [facility] [place] [facility] [address] [id number] [place] [address]- 7612 Jan, [facility] [place] [facility] [address] [id number] [place] [address]- 6330 Jan, [facility] [place] [facility] [address] [id number] [place] [address]- 1181 Nov, [facility] [place] [facility] [address] [id number] [place] [address]- 1262 Nov, [facility] [place] [facility] [address] [id number] [place] [address]- 6071 October, [facility] [place] [facility] [address] [id number] [place] [address]- 0119 October, [facility] [place] [facility] [address] [id number] [place] [address]- 6250 October, [facility] [place] [facility] [address] [id number] [place] [address]- 2772 October, [facility] [place] [facility] [address] [id number] [place] [address]- 4688 Sep, [facility] [place] [facility] [address] [id number] [place] [address]- 4606 Aug, [facility] [place] [facility] [address] [id number] [place] [address]- 1504 Aug, [facility] [place] [facility] [address] [id number] [place] [address]- 8594 Aug, [facility] [place] [facility] [address] [id number] [place] [address]- 9060 Aug, [facility] [place] [facility] [address] [id number] [place] [address]- 9561 Jul, [facility] [place] [facility] [address] [id number] [place] [address]- 6265 Jul, [facility] [place] [facility] [address] [id number] [place] [address]- 6450 Jun, [facility] [place] [facility] [address] [id number] [place] [address]- 2339 Jun, [facility] [place] [facility] [address] [id number] [place] [address]- 5657 Jun, [facility] [place] [facility] [address] [id number] [place] [address] Jun, [facility] [place] [facility] [address] [id number] [place] [address] Jun, [facility] [place] [facility] [address] [id number] [place] [address] Jun, [facility] [place] [facility] [address] [id number] [place] [address] Mar, [facility] [place] [facility] [address] [id number] [place] [address] Mar, [facility] [place] [facility] [address] [id number] [place] [address] Feb, [facility] [place] [facility] [address] [id number] [place] [address] 11 Feb, 2013 [facility] [place] [facility] [address] [id number] [address] Feb, [facility] [address] [id number] [place] [address] Jan, [facility] [address] [id number] [place] [address] Jan, [facility] [address] [facility] [id number] [place] [address] Dec, [facility] [place] [facility] [address] [id number] [address] Nov, [facility] [place] [facility] [address] [id number] [place] [address] Sep, [facility] [place] [facility] [address] [facility] [id number] [place] [address] Aug, [facility] [address] [facility] [id number] [place] [address] Aug, [facility] [place] [facility] [address] [id number] [place] [address] Aug, [facility] [address] [id number] [place] [address] Jul, [facility] [place] [facility] [address] [facility] [id number] [place] [address] Jul, [facility] [address] [id number], [place] [address] Jul, [facility] [place] [facility] [address] [id number] [place] [address] Jul, [facility] [place] [facility] [address] [id number] [place] [address] Jul, [facility] [place] [facility] [address] [facility] [id number] [place] [address] Apr, [facility] [place] [facility] [address] [facility] [id number] [place] [address] Apr, [facility] [place] [facility] [address] [id number] [place] [address] Jan, [facility] [place] [facility] [address] [id number] [place] [address] Jan, [facility] [place] [facility] [address] [id number] [place] [address] Dec, [facility] [place] [facility] [address] [id number] [place] [address] Dec, [facility] [place] [facility] [address] [id number] [place] [id number] Dec, [facility] [place] [facility] [address] [id number] [place] [address] Dec, [facility] [place] [facility] [address] [id number] [place] [address] Dec, [facility] [place] [facility] [address] [id number] [place] [address] October, [facility] [place] [facility] [address] [id number] [place] [address] Aug, [facility] [place] [facility] [address] [id number] [place] [address] Aug, [facility] [place] [facility] [address] [id number] [place] [address] Aug, [facility] [place] [facility] [address] [id number] [place] [address] Jul, [facility] [place] [facility] [address] [id number] [place] [address] May, [facility] [place] [facility] [address] [id number] [place] [address] Apr, [facility] [place] [facility] [address] [id number] [place] [address] May, [facility] [place] [facility] [address] [id number] [place] [address] May, [facility] [address] [facility] [id number] [place] [address] May, [facility] [address] [facility] [id number] [address] Mar, [facility] [address] [facility] [id number], [place] [address] Mar, [facility] [address] [facility] [id number] [address] Aug, IMMUNIZATIONS No Known Immunizations SOCIAL HISTORY Never Assessed REASON FOR VISIT Pain management consult Erick PLAN OF CARE Activity Details Follow Up pt will call Reason: VITAL SIGNS Height 66.5 in 2018-02-21 Weight 172.2 lbs 2018-02-21 Heart Rate 76 bpm 2018-02-21 Respiratory Rate 20 2018-02-21 BMI 27.37 kg/m2 2018-02-21 Blood pressure systolic 124 mmHg 2018-02-21 Blood pressure diastolic 88 mmHg 2018-02-21 MEDICATIONS Medication Instructions Dosage Frequency Start Date End Date Duration Status Lyrica 150 MG Orally 3 times a day 1 capsule 8h Apr, 28 days Active Vitamin D3 29311 UNIT Orally once weekly 1 capsule May, Active Flonase Allergy Relief 50 MCG/ACT Nasally Once a day 1 spray in each nostril 24h Dec, 30 day(s) Active Chlorzoxazone 500 mg Orally 2 times a day 1 tablet 12h 13 Jan, 2018May 30 day(s) Active Percocet 10-325 MG Orally 5 times per day 1 tablet as needed Jan, 28 days Active Premarin 0.625 MG/GM Vaginal 3 times a week as directed Mar, Active RESULTS Name Result Date Reference Range Xray : Hip, Right 2 views (IN HOUSE) 2018-02-21 Xray : Knee, Right 1-2 views (IN HOUSE) 2018-02-21 PROCEDURES Procedure Date Ordered Result Body Site X-RAY EXAM HIP UNI 2-3 VIEWS Feb 21, 2018 X-RAY EXAM OF KNEE, 1 OR 2 Feb 21, 2018 INSTRUCTIONS MEDICATIONS ADMINISTERED No Known Medications MEDICAL (GENERAL) HISTORY Type Description Date Medical History chronic pain Medical History arthritis Surgical History Nephrectomy - age 3 Surgical History Appendectomy Hospitalization History surgery Hospitalization History childbirth x 3
--- OUTSIDE RECORDS SUMMARY | 2018-06-07 13:20 | XMS REPORT ---
Author Author PADMAJA MORGAN Organization [facility] Address [address] 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 Active [id number] Problem Need for prophylaxis against urinary tract infection Z29.8 Active 927174188 Problem Major depressive disorder, single episode, unspecified F32.9 Active 79645688 Problem Scoliosis, unspecified scoliosis type, unspecified spinal region M41.9 Active 618119233 Problem Abnormal mammogram of left breast R92.8 Active 761693932 Problem Calculus of gallbladder without cholecystitis without obstruction K80.20 Active 244191790 ALLERGIES No Information ENCOUNTERS Encounter Location Date Diagnosis [facility] [address] [facility] [id number] [address] May, [facility] [address] [facility] [id number], [place] [address] 20 Feb, 2018 Trochanteric bursitis, right hip M70.61 ; Chondromalacia, right knee M94.261 and 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 [facility] [address] [facility] [id number], [place] [address] 18 Feb, 2018 [facility] [address] [id number] [place] [address] 10795- 2534 14 Feb, 2018 Other chronic pain G89.29 and Myalgia M79.1 [place] [address] 55459- 5638 Jan, [place] [address] [id number] [place] [address] 57394- 4904 Jan, Right hip pain M25.551 and Opioid use disorder, mild, in controlled environment F11.10 [place] [address] 09788- 2769 Jan, Other chronic pain G89.29 and Myalgia M79.1 [place] [address] [id number] [place] [address] 29138- 9765 16 Jan, 2018 Urinary tract infection without hematuria, site unspecified N39.[address] [address]16- 4400 13 Jan, 2018 Therapeutic drug monitoring Z51.81 ; Scoliosis, unspecified scoliosis type, unspecified spinal region M41.9 ; Chronic prescription opiate use Z79.891 ; Dysthymia F34.1 ; Alcohol use Z78.9 and Frequent urinary tract infections N39.0 [place] [address] [id number] [place] [address] 83594- 8043 Dec, Other chronic pain G89.29 and Myalgia M79.1 [place] [id number] [place] [address] 84535- 4422 Dec, Impacted cerumen, right ear H61.21 and Dysfunction of right eustachian tube H69.81 [place] [address] 36732- 7746 Nov, Myalgia M79.1 and Other chronic pain G89.29 [facility] [address] [id number] [place] [address] 51130- 5281 October, Other chronic pain G89.29 and Myalgia M79.1 [facility] [id number] [place] [address] 19783- 6684 Sep, Other chronic pain G89.29 [facility] [id number] [place] [address] 26571- 5725 Aug, Other chronic pain G89.29 [facility] [id number] [place] [address] 46767- 5382 Aug, Scoliosis (and kyphoscoliosis), idiopathic M41.20 [facility] [id number] [place] [address] 56605- 2552 Aug, [place] [address] 27694- 3377 Aug, Dysuria R30.0 ; Scoliosis, unspecified scoliosis type, unspecified spinal region M41.9 ; Encounter for therapeutic drug level monitoring Z51.81 and Alcohol use Z78.9 [place] [id number] [place] [address] 35339- 2470 Aug, Other chronic pain G89.29 [facility] [id number] [place] [address] 38666- 6674 Jul, Chronic urinary tract infection N39.0 [facility] [id number] [place] [address] 42714- 4450 07 Jul, 2017 Other chronic pain G89.29 [facility] [id number] [place] [address] 55055- 5352 Jun, [facility] [id number] [place] [address] 69237- 0467 Jun, [facility] [id number] [place] [address] 62232- 2929 Jun, Acute left-sided thoracic back pain M54.6 [facility] [id number] [place] [address] 98787 -8671 Jun, Cough R05 and Acute bilateral thoracic back pain M54.6 [facility] [id number] [place] [address] 68249 -7533 Jun, Back pain, unspecified back location, unspecified back pain laterality, unspecified chronicity M54.9 and Left flank pain R10.9 [place] [address] [id number] [place] [address] 59572- 7433 Jun, Other chronic pain G89.29 [place] [address] 00579- 0741 Jun, Myalgia M79.1 [place] [address] [id number] [place] [address] 21981- 1849 May, Other chronic pain G89.29 [place] [id number] [place] [address] 04205- 1937 May, Myalgia M79.1 and Fatigue due to exposure, subsequent encounter T73.2XXD [place] [id number] [place] [address] 70792- 8560 05 May, 2017 Fatigue due to exposure, subsequent encounter T73.2XXD [place] [id number] [place] [address] 73993- 6306 15 Apr, 2017 Other chronic pain G89.29 and Myalgia M79.1 [place] [address] [id number] [place] [address] 18328- 9433 08 Apr, 2017 Closed nondisplaced fracture of phalanx of left great toe with routine healing, unspecified phalanx, subsequent encounter S92.405D ; Dysuria R30.0 ; Localized edema R60.0 and 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.50 [place] [address] 14708- 2323 Mar, Other chronic pain G89.29 and Myalgia M79.1 [place] [id number] [place] [address] 49884- 4002 Mar, [place] [address] [place] [address]- 8332 Mar, Dysuria R30.0 ; Other chronic pain G89.29 ; Scoliosis, unspecified scoliosis type, unspecified spinal region M41.9 and Chronic urinary tract infection N39.0 [facility] [id number] [place] [address] 01716- 2101 Feb, 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.50 and Myalgia M79.1 [facility] [address] [id number] [place] [address] 38164- 5148 Feb, [facility] [id number] [place] [address] 74813- 8360 Feb, [place] [id number] [place] [address] 43137- 9414 Feb, Closed compression fracture of L4 lumbar vertebra with routine healing, subsequent encounter S32.040D ; Closed nondisplaced fracture of phalanx of left great toe with routine healing, unspecified phalanx, subsequent encounter S92.405D and Chronic urinary tract infection N39.0 [facility] [id number] [place] [address] 95839- 8680 Jan, Closed compression fracture of fourth lumbar vertebra, initial encounter S32.040A [facility] [address] [place] [address] 77382- 2856 Jan, Urinary tract infection, site not specified N39.0 [facility] [id number] [place] [address] 13552- 9420 Jan, [facility] [id number] [place] [address] 81054- 6031 Jan, [facility] [id number] [place] [address] 15613- 8274 Jan, 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.50 and Myalgia M79.1 [facility] [address] [place] [address] 07755- 4640 Jan, Need for prophylaxis against urinary tract infection Z29.8 and Urinary tract infection, site not specified N39.0 [facility] [address] [address]- 8049 Dec, Urinary tract infection, site not specified N39.0 and Need for prophylaxis against urinary tract infection Z29.8 [facility] [id number] [place] [address] 31951- 3110 Dec, Major depressive disorder, single episode, unspecified F32.9 ; Myalgia M79.1 ; 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.50 and 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 [facility] [id number] [place] [address] 47136- 5706 Dec, Other chronic pain G89.29 and Dysuria R30.0 [facility] [id number] [place] [address] 61723- 0412 Nov, 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 [place] [address] [id number] [place] [address] 10827- 5170 Nov, Acute midline low back pain without sciatica M54.5 and [facility] 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 Z79.891 [place] [address] [id number] [place] [address] 08131- 8155 Nov, [facility] [id number] [place] [address] 25627- 9654 October, [facility] [id number] [place] [address] 28115- 4166 October, [facility] [id number] [place] [address] 68962- 0573 Sep, Right leg pain M79.604 [facility] [id number] [place] [address] 76647- 7128 Sep, [facility] [address] [place] [address] 61076- 5365 Aug, Right leg pain M79.604 [place] [address] [place] [address] 09909- 8766 Jul, [place] [address] 93461- 6207 Jul, 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.50 and Right leg pain M79.604 [place] [address] [place] [id number] [place] [address] 16471- 8460 Jun, 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.50 [place] [address] [id number] [place] [address] 01814- 4174 Jun, [place] [address] 72179- 4842 Jun, Right leg pain M79.604 [place] [address] [place] [id number] [place] [address] 16984- 9575 Jun, Right leg pain M79.604 [place] [id number] [place] [address] 59212- 2738 Jun, Abnormal mammogram of left breast R92.8 [place] [address] [id number] [place] [address] 57230- 1498 May, Routine gynecological examination V72.31 ; Breast cancer screening Z12.39 ; Cervical cancer screening Z12.4 ; Colon cancer screening Z12.11 and Calculus of gallbladder without cholecystitis without obstruction K80.20 [place] [address] [id number] [place] [address] 21410- 3509 May, 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.50 [place] [address] [id number] [place] [address] 18627- 7964 29 Apr, 2016 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.50 [place] [address] [id number] [place] [address] 80409- 2103 17 Apr, 2016 Screening, lipid Z13.220 [place] [address] 65481- 3775 Apr, Other chronic pain G89.29 ; Scoliosis, unspecified scoliosis type, unspecified spinal region M41.9 ; Right leg pain M79.604 ; Major depressive disorder, single episode, unspecified F32.9 ; Fatigue due to exposure, subsequent encounter T73.2XXD ; Dysthymia F34.1 and Screening, lipid Z13.220 [facility] [address] 85802- 8241 Apr, 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.50 [facility] [address] 19596- 9892 Mar, Dysthymia 300.4 [place] [address] 43720- 5923 Mar, 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.50 [facility] [address] 24386- 8227 Feb, 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.50 [place] [address] 51110- 5497 Jan, 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.50 [place] [address] 79597- 7756 Dec, 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 [place] [address] [id number] [place] [address] 12680- 8810 Dec, [facility] [address] 45837- 6050 Dec, Right leg pain M79.604 and Scoliosis, unspecified scoliosis type, unspecified spinal region M41.9 [place] [address] 35197- 2657 Dec, Right leg pain M79.604 and Scoliosis, unspecified scoliosis type, unspecified spinal region M41.9 [facility] [id number] [place] [address] 54849- 6135 Dec, 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.50 [place] [id number] [place] [address] 47135- 2979 Nov, 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.50 [place] [address] 55187- 1332 October, 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.50 and Scoliosis, unspecified scoliosis type , unspecified spinal region M41.9 [place] [address] 62818- 5525 Sep, [place] [address] 88225- 5097 Aug, [place] [address] 37720- 3591 Aug, 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.50 ; Myalgia M79.1 and Scoliosis M41.9 [place] [address] 45813- 6298 Jul, Other chronic pain G89.29 [place] [address] 25054- 1043 Jul, Other chronic pain G89.29 [place] [address] 92260- 1858 Jul, Impingement syndrome of both shoulders M75.41 [place] [address] [id number] [place] [address] 00951- 4916 Jun, [facility] [address] [id number] [place] [address] 66752- 7016 Jun, [place] [address] 26684- 3266 Jun, Scoliosis (and kyphoscoliosis), idiopathic M41.20 and Other chronic pain G89.29 [facility] [id number] [place] [address] 58347 -1862 Jun, Upper respiratory tract infection, unspecified type 465.9 and Rhinorrhea J34.89 [place] [address] [place] [address] 90895- 3917 May, [place] [address] [id number] [place] [address] 804286- 1812 May, [place] [address] [id number] [place] [address] 10044- 3419 Apr, Dysuria R30.0 ; Urinary tract infection, site not specified N39.0 and Hematuria, unspecified R31.9 [place] [address] [id number] [place] [address] 38387- 8120 Apr, [place] [address] 02641- 4970 Mar, Family history of early CAD Z82.49 [place] [address] [id number] [place] [address] 51426- 0698 Mar, Other chronic pain G89.29 [place] [id number] [place] [address] 19994- 3010 Mar, Impingement syndrome of both shoulders M75.41 [place] [address] [id number] [place] [address] 25123- 1446 Mar, Other chronic pain G89.29 ; Dysthymia F34.1 ; Family history of early CAD Z82.49 ; Dysuria R30.0 and Other specified disorders of Eustachian tube, right ear H69.81 [place] [address] [id number] [place] [address] 65553- 4710 Mar, [place] [address] [place] [id number] [place] [address] 30657- 3535 Feb, [place] [address] [id number] [place] [address] 10901- 3781 Jan, [place] [id number] [place] [address] 55370- 6298 Jan, Eustachian tube dysfunction 381.81 and Dysthymia 300.4 [facility] [address] [address]- 1008 Dec, [facility] [address]- 2180 Nov, Impingement syndrome of both shoulders 726.2 [facility] [address] [address]- 3866 Nov, [facility] [address] [address]- 9917 Nov, [facility] [address] [place] [address] 70059- 3384 Nov, Urgency of urination 788.63 [facility] [address] [address]- 3190 October, [facility] [id number] [place] [address] 62980- 0771 October, [facility] [address] [address]- 9483 Sep, [facility] [address] [address]- 8706 Sep, [facility] [address] [address]- 6660 Aug, [facility] [address] [address]- 6226 Aug, [facility] [address] [address] 254 Aug, [facility] [address] [address] 2546 Aug, [facility] [address] [address] 2546 Aug, [facility] [address] [address] 4126 Aug, [facility] [place] [facility] [address] [id number] [place] [address]- 8181 Aug, [facility] [place] [facility] [address] [id number] [place] [address]- 4688 Jul, [facility] [place] [facility] [address] [id number] [place] [address]- 9526 Jul, [facility] [place] [facility] [address] [id number] [place] [address]- 6050 Jul, 2014 [facility] [place] [facility] [address] [id number] [place] 9393 Jul, [facility] [place] [facility] [address] [facility] [id number] [place] [address]- 4674 Jul, [facility] [place] [facility] [address] [facility] [id number] [place] [address]- 6538 Jul, [facility] [place] [facility] [address] [facility] [id number] [place] [address]- 2045 Jun, [facility] [place] [facility] [address] [facility] [id number] [place] [address]- 9720 Jun, [facility] [place] [facility] [address] [facility] [id number] [place] [address]- 3496 May, [facility] [place] [facility] [address] [facility] [id number] [place] [address]- 4133 May, [facility] [place] [facility] [address] [id number], [place] [address]- 9308 May, [facility] [place] [facility] [address] [id number] [place] [address]- 8187 May, [facility] [place] [facility] [address] [facility] [id number] [place] [address]- 3230 Mar, [facility] [place] [facility] [address] [facility] [id number] [place] [address]- 3323 Mar, [facility] [place] [facility] [address] [id number] [place] [address]- 3073 Feb, [facility] [address] [id number] [place] [address]- 6275 Feb, [facility] [place] [facility] [address] [id number] [place] [address]- 2438 Jan, [facility] [place] [facility] [address] [id number] [place] [address]- 2975 Jan, [facility] [place] [facility] [address] [id number] [place] [address]- 8650 Jan, [facility] [place] [facility] [address] [id number] [place] [address]- 7788 Jan, [facility] [place] [facility] [address] [id number] [place] [address]- 4813 Jan, [facility] [place] [facility] [address] [id number] [place] [address]- 7275 Nov, [facility] [place] [facility] [address] [id number] [place] [address]- 8583 Nov, [facility] [place] [facility] [address] [id number] [place] [address]- 7532 October, [facility] [place] [facility] [address] [id number] [place] [address]- 9349 October, [facility] [place] [facility] [address] [id number] [place] [address]- 2165 October, [facility] [place] [facility] [address] [id number] [place] [address]- 9325 October, [facility] [place] [facility] [address] [id number] [place] [address]- 3441 Sep, [facility] [place] [facility] [address] [id number] [place] [address]- 9453 Aug, [facility] [place] [facility] [address] [id number] [place] [address]- 2936 Aug, [facility] [place] [facility] [address] [id number] [place] [address]- 0150 Aug, [facility] [place] [facility] [address] [id number] [place] [address]- 8339 Aug, [facility] [place] [facility] [address] [id number] [place] [address]- 3891 Jul, [facility] [place] [facility] [address] [id number] [place] [address]- 7357 Jul, [facility] [place] [facility] [address] [id number] [place] [address]- 8308 Jun, [facility] [place] [facility] [address] [id number] [place] [address]- 8683 Jun, [facility] [place] [facility] [address] [id number] [place] [address]- 5243 Jun, [facility] [place] [facility] [address] [id number] [place] [address]- 0240 Jun, [facility] [place] [facility] [address] [id number] [place] [address]- 9737 Jun, [facility] [place] [facility] [address] [id number] [place] [address]- 7294 Jun, [facility] [place] [facility] [address] [id number] [place] [address] Mar, [facility] [place] [facility] [address] [id number], [place] [address] Mar, [facility] [place] [facility] [address] [id number] [place] [address] Feb, [facility] [place] [facility] [address] [id number] [place] [address] Feb, [facility] [place] [facility] [address] [id number] [place] [address] Feb, [facility] [place] [facility] [address] [id number] [place] [address] Jan, [facility] [address] [id number] [place] [address] Jan, [facility] [address] [id number] [place] [address] Dec, [facility] [address] [id number] [place] [address] Nov, [facility] [place] [facility] [address] [id number] [place] [address] Sep, [facility] [address] [id number] [place] [address] Aug, [facility] [address] [id number] [place] [address] Aug, [facility] [address] [id number] [place] [address] Aug, [facility] [address] [id number] [place] [address] Jul, [facility] [address] [id number] [place] [address] Jul, [facility] [address] [facility] [id number] [place] [address] Jul, [facility] [id number] [address] Jul, [facility] [address] [id number] [place] [address] Jul, [facility] [place] [facility] [address] [id number] [place] [address]- [address] Apr, [facility] [place] [facility] [address] [id number] [place] [address] Apr, [facility] [place] [facility] [address] [id number] [place] [address] Jan, [facility] [place] [facility] [address] [id number] [place] [address] Jan, [facility] [place] [facility] [address] [id number] [place] [address] Dec, [facility] [place] [facility] [address] [id number] [place] [address] Dec, [facility] [place] [facility] [address] [id number] [place] [address] Dec, [facility] [place] [facility] [address] [id number] [place] [address] Dec, [facility] [place] [facility] [address] [id number] [place] [address] Dec, [facility] [place] [facility] [address] [id number] [place] [address] October, [facility] [place] [facility] [address] [id number] [place] [address] Aug, [facility] [place] [facility] [address] [id number] [place] [address] Aug, [facility] [place] [facility] [address] [id number] [place] [address] Aug, [facility] [place] [facility] [address] [id number] [place] [address] Jul, [facility] [place] [facility] [address] [id number] [place] [address] May, [facility] [place] [facility] [address] [id number] [place] [address] Apr, [facility] [place] [facility] [address] [id number] [place] [address] May, [facility] [place] [facility] [address] [id number] [place] [address] May, [facility] [place] [facility] [address] [id number] [place] [address] May, [facility] [address] [facility] [id number] [place] [address] Mar, [facility] [address] [facility] [id number], [place] [address] Mar, [facility] [address] [facility] [id number] [place] [address]- [id number] Aug, IMMUNIZATIONS No Known Immunizations SOCIAL HISTORY Never Assessed REASON FOR VISIT Suboxone Planning PLAN OF CARE VITAL SIGNS MEDICATIONS Unknown Medications RESULTS No Results PROCEDURES No Known procedures INSTRUCTIONS MEDICATIONS ADMINISTERED No Known Medications MEDICAL (GENERAL) HISTORY Type Description Date Medical History chronic pain Medical History arthritis Surgical History Nephrectomy - age 3 Surgical History Appendectomy Hospitalization History surgery Hospitalization History childbirth x 3
--- OUTSIDE RECORDS SUMMARY | 2018-06-07 13:21 | XMS REPORT ---
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 Name Role Phone CHUY NGUYEN Unavailable PROBLEMS Type Condition ICD9-CM Code [id number] Code Onset Dates Condition Status SNOMED Code Problem Other chronic pain G89.29 Active 51753681 Problem 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.50 Active 58065744 Problem Myalgia M79.1 Active 26186468 Problem Urinary urgency R39.15 Active 44489787 Problem Dysthymia F34.1 Active 68647878 Problem Varicose veins I86.8 Active 024504038 Problem Scoliosis (and kyphoscoliosis), idiopathic M41.20 Active 56682384 Problem 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 Active 588119524880823 Problem Need for prophylaxis against urinary tract infection Z29.8 Active 269611987 Problem Major depressive disorder, single episode, unspecified F32.9 Active 02092488 Problem Scoliosis, unspecified scoliosis type, unspecified spinal region M41.9 Active 352090614 Problem Abnormal mammogram of left breast R92.8 Active 347007777 Problem Calculus of gallbladder without cholecystitis without obstruction K80.20 Active 075377563 ALLERGIES No Information ENCOUNTERS Encounter Location Date Diagnosis [facility] [id number] [place] [address] 70783- 0701 May, [facility] [id number], [place] [address] 9481 Feb, [facility] [id number] [place] [address] 16848- 7104 Feb, Trochanteric bursitis, right hip M70.61 ; Chondromalacia, right knee M94.261 and 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 [facility] [id number] [place] [address] 97127- 8401 18 Feb, 2018 [facility] [id number] [place] [address] 59114- 3751 14 Feb, 2018 Other chronic pain G89.29 and Myalgia M79.1 [facility] [id number] [place] [address] 02231- 9110 30 Jan, 2018 [facility] [id number] [place] [address] 76722- 8722 Jan, Right hip pain M25.551 and Opioid use disorder, mild, in controlled environment F11.10 [facility] [address] 12024- 2620 Jan, Other chronic pain G89.29 and Myalgia M79.1 [facility] [id number] [place] [address] 48429- 1054 16 Jan, 2018 Urinary tract infection without hematuria, site unspecified N39.0 [facility] [id number] [place] [address] 89903- 0185 13 Jan, 2018 Therapeutic drug monitoring Z51.81 ; Scoliosis, unspecified scoliosis type, unspecified spinal region M41.9 ; Chronic prescription opiate use Z79.891 ; Dysthymia F34.1 ; Alcohol use Z78.9 and Frequent urinary tract infections N39.0 [facility] [id number] [place] [address] 57778- 1370 Dec, Other chronic pain G89.29 and Myalgia M79.1 [facility] [id number] [place] [address] 26885- 1906 Dec, Impacted cerumen, right ear H61.21 and Dysfunction of right eustachian tube H69.81 [facility] [id number] [place] [address] 13377- 8233 Nov, Myalgia M79.1 and Other chronic pain G89.29 [facility] [id number] [place] [address] 9321 October, Other chronic pain G89.29 and Myalgia M79.1 [facility] [id number] [place] [address] 76548- 7077 Sep, Other chronic pain G89.29 [facility] [id number] [place] [address] 65535- 7991 Aug, Other chronic pain G89.29 [facility] [id number] [place] [address] 77785- 2139 Aug, Scoliosis (and kyphoscoliosis), idiopathic M41.20 [facility] [id number] [place] [address] 58094- 9513 Aug, [facility] [id number] [place] [address] 33007- 1565 Aug, Dysuria R30.0 ; Scoliosis, unspecified scoliosis type, unspecified spinal region M41.9 ; Encounter for therapeutic drug level monitoring Z51.81 and Alcohol use Z78.9 [facility] [id number] [place] [address] 15784- 4264 Aug, Other chronic pain G89.29 [facility] [id number] [place] [address] 88183- 3046 Jul, Chronic urinary tract infection N39.0 [facility] [id number] [place] [address] 02139- 7584 07 Jul, 2017 Other chronic pain G89.29 [facility] [id number] [place] [address] 26300- 8296 Jun, [facility] [id number] [place] [address] 01152- 7696 Jun, [facility] [address] [place] [address] 80640- 7028 Jun, Acute left-sided thoracic back pain M54.6 [facility] [id number] [place] [address] 89658 -8881 18 Jun, 2017 Cough R05 and Acute bilateral thoracic back pain M54.6 [facility] [id number] [place] [address] 11156 -9078 15 Jun, 2017 Back pain, unspecified back location, unspecified back pain laterality, unspecified chronicity M54.9 and Left flank pain R10.9 [facility] [address] 22059- 9531 10 Jun, 2017 Other chronic pain G89.29 [facility] [address] 22561- 1340 03 Jun, 2017 Myalgia M79.1 [facility] [id number] [place] [address] 50502- 5157 13 May, 2017 Other chronic pain G89.29 [facility] [address] 85291- 7331 07 May, 2017 Myalgia M79.1 and Fatigue due to exposure, subsequent encounter T73.2XXD [address] 10999- 1907 05 May, 2017 Fatigue due to exposure, subsequent encounter T73.2XXD [facility] [id number] [place] [address] 74064- 4845 15 Apr, 2017 Other chronic pain G89.29 and Myalgia M79.1 [facility] [id number] [place] [address] 52720- 1443 08 Apr, 2017 Closed nondisplaced fracture of phalanx of left great toe with routine healing, unspecified phalanx, subsequent encounter S92.405D ; Dysuria R30.0 ; Localized edema R60.0 and 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.50 [facility] [id number] [place] [address] 01072- 2139 18 Mar, 2017 Other chronic pain G89.29 and Myalgia M79.1 [facility] [address], [place] [address]- 3824 Mar, [facility] [id number] [place] [address] 33798- 0221 Mar, Dysuria R30.0 ; Other chronic pain G89.29 ; Scoliosis, unspecified scoliosis type, unspecified spinal region M41.9 and Chronic urinary tract infection N39.0 [facility] [id number] [place] [address] 02486- 1395 Feb, 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.50 and Myalgia M79.1 [facility] [id number] [place] [address] 70520- 9950 Feb, [facility] [id number] [place] [address] 52784- 5054 Feb, [facility] [id number] [place] [address] 87907- 0832 Feb, Closed compression fracture of L4 lumbar vertebra with routine healing, subsequent encounter S32.040D ; Closed nondisplaced fracture of phalanx of left great toe with routine healing, unspecified phalanx, subsequent encounter S92.405D and Chronic urinary tract infection N39.0 [facility] [address] [place] [address] 63321- 8642 Jan, Closed compression fracture of fourth lumbar vertebra, initial encounter S32.040A [facility] [id number] [place] [address] 46457- 2433 Jan, Urinary tract infection, site not specified N39.0 [facility] [address] [place] [address] 08587- 4330 Jan, [facility] [id number] [place] [address] 04385- 0744 Jan, [facility] [address] [place] [address] 98135- 2649 Jan, 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.50 and Myalgia M79.1 [facility] [address] [place] [address] 50515- 8325 Jan, Need for prophylaxis against urinary tract infection Z29.8 and Urinary tract infection, site not specified N39.0 [facility] [id number] [place] [address] 46643- 9798 Dec, Urinary tract infection, site not specified N39.0 and Need for prophylaxis against urinary tract infection Z29.8 [facility] [id number] [place] [address] 26995- 4106 Dec, Major depressive disorder, single episode, unspecified F32.9 ; Myalgia M79.1 ; 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.50 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 [facility] [id number] [place] [address] 29939- 1713 Dec, Other chronic pain G89.29 and Dysuria R30.0 [facility] [id number] [place] [address] 08926- 1556 Nov, senior living 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 Z79.891 [facility] [id number] [place] [address] 94198- 2824 Nov, Acute midline low back pain without sciatica M54.5 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 [facility] [address] [place] [address] 45895- 4346 Nov, [facility] [id number] [place] [address] 28814- 9376 October, [facility] [id number] [place] [address] 41887- 2705 October, [facility] [id number] [place] [address] 06803- 8618 Sep, Right leg pain M79.604 [facility] [address] [place] [address] 34700- 8106 Sep, [place] [facility] [address] [place] [address] 23277- 6873 Aug, Right leg pain M79.604 [facility] [id number] [place] [address] 43029- 5301 Jul, [facility] [id number] [place] [address] 48395- 7724 Jul, 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.50 and Right leg pain M79.604 [facility] [id number] [place] [address] 12709- 5005 Jun, 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.50 [facility] [id number] [place] [address] 93105- 8952 Jun, [facility] [id number] [place] [address] 59878- 6724 Jun, Right leg pain M79.604 [facility] [id number] [place] [address] 64969- 0230 Jun, Right leg pain M79.604 [facility] [id number] [place] [address] 67576- 4044 Jun, Abnormal mammogram of left breast R92.8 [facility] [id number] [place] [address] 57591- 1220 May, Routine gynecological examination V72.31 ; Breast cancer screening Z12.39 ; Cervical cancer screening Z12.4 ; Colon cancer screening Z12.11 and Calculus of gallbladder without cholecystitis without obstruction K80.20 [facility] [id number] [place] [address] 02261- 0355 May, 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.50 [facility] [id number] [place] [address] 41965- 2194 Apr, 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.50 [facility] [id number] [place] [address] 51607- 6992 Apr, Screening, lipid Z13.220 [facility] [id number] [place] [address] 24231- 5056 Apr, Other chronic pain G89.29 ; Scoliosis, unspecified scoliosis type, unspecified spinal region M41.9 ; Right leg pain M79.604 ; Major depressive disorder, single episode, unspecified F32.9 ; Fatigue due to exposure, subsequent encounter T73.2XXD ; Dysthymia F34.1 and Screening, lipid Z13.220 [facility] [id number] [place] [address] 12472- 8415 Apr, 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.50 [facility] [address] 06122- 9154 Mar, Dysthymia 300.4 [facility] [address] 79752- 7492 Mar, 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.50 [facility] [address] 35188- 2896 Feb, 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.50 [facility] [address] 45937- 0642 Jan, 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.50 [facility] [id number] [place] [address] 45073- 2464 Dec, 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 [facility] [id number] [place] [address] 34044- 4100 Dec, [facility] [id number] [place] [address] 70453- 7954 Dec, Right leg pain M79.604 and Scoliosis, unspecified scoliosis type, unspecified spinal region M41.9 [facility] [id number] [place] [address] 03754- 4260 Dec, Right leg pain M79.604 and Scoliosis, unspecified scoliosis type, unspecified spinal region M41.9 [place] [id number] [place] [address] 10866- 2858 Dec, 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.50 [facility] [id number] [place] [address] 72985- 5553 Nov, 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.50 [facility] [id number] [place] [address] 36423- 3140 October, 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.50 and Scoliosis, unspecified scoliosis type , unspecified spinal region M41.9 [facility] [id number] [place] [address] 37656- 4411 Sep, [facility] [id number] [place] [address] 25922- 8790 Aug, [facility] [id number] [place] [address] 21170- 9142 Aug, 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.50 ; Myalgia M79.1 and Scoliosis M41.9 [facility] [id number] [place] [address] 34323- 3392 Jul, Other chronic pain G89.29 [facility] [id number] [place] [address] 60596- 7787 Jul, Other chronic pain G89.29 [facility] [id number] [place] [address] 66753- 6441 Jul, Impingement syndrome of both shoulders M75.41 [facility] [id number] [place] [address] 89402- 9001 Jun, [facility] [id number] [place] [address] 94421- 6612 Jun, [facility] [id number] [place] [address] 80160- 0557 Jun, Scoliosis (and kyphoscoliosis), idiopathic M41.20 and Other chronic pain G89.29 [facility] [id number] [place] [address] 52938 -1913 Jun, Upper respiratory tract infection, unspecified type 465.9 and Rhinorrhea J34.89 [facility] [address] 56243- 0202 May, [facility] [address] 49815- 4970 May, [place] [address] 30582- 8789 Apr, Dysuria R30.0 ; Urinary tract infection, site not specified N39.0 and Hematuria, unspecified R31.9 [facility] [address] 34392- 9579 Apr, [facility] [facility] [address] 02814- 0520 Mar, Family history of early CAD Z82.49 [facility] [address] 03056- 5872 Mar, Other chronic pain G89.29 [facility] [facility] [address] 43697- 5054 Mar, Impingement syndrome of both shoulders M75.41 [facility] [id number] [place] [address] 94016- 9616 Mar, Other chronic pain G89.29 ; Dysthymia F34.1 ; Family history of early CAD Z82.49 ; Dysuria R30.0 and Other specified disorders of Eustachian tube, right ear H69.81 [facility] [facility] [address] 46914- 8506 Mar, [place] [address] 65868- 2087 Feb, [place] [facility] [address] 38851- 8226 Jan, [place] [facility] [address] [address]- 2549 Jan, Eustachian tube dysfunction 381.81 and Dysthymia 300.4 [facility] [id number] [place] [address] 022054- 6544 Dec, [facility] [id number] [place] [address] 95078- 1494 Nov, Impingement syndrome of both shoulders 726.2 [facility] [address] [place] [address] 16213- 2549 Nov, [facility] [id number] [place] [address] 65283- 3811 Nov, [facility] [id number] [address]- 3121 Nov, Urgency of urination 788.63 [facility] [id number] [place] [address] 70964- 3723 October, [facility] [address] [place] [address] 81216- 2039 October, [facility] [id number] [place] [address] 25272- 8689 Sep, [facility] [address], [place] [address]- 7331 Sep, [facility] [address], [place] [address]- 6687 Aug, [facility] [address], [place] [address]- 1179 Aug, [facility] [id number] [place] [address] 45940- 6805 Aug, [facility] [id number], [place] [address]- 7748 Aug, [facility] [address] [place] [address] 24719- 3310 Aug, [facility] [place] [facility] [address] [id number] [place] [address]- 2289 Aug, [facility] [place] [facility] [address] [id number] [place] [address]- 5046 Aug, [facility] [place] [facility] [address] [facility] [id number] [place] [address]- 8791 Jul, [facility] [place] [facility] [address] [id number] [place] [address]- 7617 Jul, 2014 [facility] [place] [facility] [address] [id number] [place] [address]- 7798 Jul, [facility] [place] [facility] [address] [facility] [id number] [place] [address]- 9152 Jul, [facility] [place] [facility] [address] [facility] [id number] [place] [address]- 7143 Jul, [facility] [place] [facility] [address] [facility] [id number] [place] [address]- 3854 Jul, [facility] [place] [facility] [address] [facility] [id number] [place] [address]- 7714 Jun, [facility] [place] [facility] [address] [facility] [id number] [place] [address]- 3625 Jun, [facility] [place] [facility] [address] [facility] [id number], [place] [address]- 9238 May, [facility] [place] [facility] [address] [facility] [id number], [place] [address]- 9089 May, [facility] [place] [facility] [address] [facility] [id number] [place] [address]- 7849 May, [facility] [place] [facility] [address] [facility] [id number] [place] [address]- 9873 May, [facility] [place] [facility] [address] [facility] [id number] [place] [address]- 5579 Mar, [facility] [place] [facility] [address] [id number] [place] [address]- 1186 Mar, [facility] [place] [facility] [address] [id number] [place] [address]- 9896 Feb, [facility] [place] [facility] [address] [id number] [place] [address]- 7809 Feb, [facility] [place] [facility] [address] [id number] [place] [address]- 9469 Jan, [facility] [place] [facility] [address] [id number] [place] [address]- 2287 Jan, [facility] [place] [facility] [address] [id number] [place] [address]- 1551 Jan, [facility] [place] [facility] [address] [id number] [place] [address]- 3440 Jan, [facility] [place] [facility] [address] [id number] [place] [address]- 8522 Jan, [facility] [place] [facility] [address] [id number] [place] [address]- 7829 Nov, [facility] [place] [facility] [address] [id number] [place] [address]- 1657 Nov, [facility] [place] [facility] [address] [id number] [place] [address]- 2072 October, [facility] [place] [facility] [address] [id number] [place] [address]- 8496 October, [facility] [place] [facility] [address] [id number] [place] [address]- 5959 October, [facility] [place] [facility] [address] [id number] [place] [address]- 6353 October, [facility] [place] [facility] [address] [id number] [place] [address]- 3467 Sep, [facility] [place] [facility] [address] [id number] [place] [address]- 9170 Aug, [facility] [place] [facility] [address] [id number] [place] 5269 Aug, [facility] [place] [facility] [address] [id number] [place] [address]- 7744 Aug, [facility] [place] [facility] [address] [id number] [place] [address] Aug, [facility] [place] [facility] [address] [id number] [place] [address] Jul, [facility] [place] [facility] [address] [id number] [place] [address] Jul, [facility] [place] [facility] [address] [id number] [place] [address] Jun, [facility] [place] [facility] [address] [id number] [place] [address] Jun, [facility] [place] [facility] [address] [id number] [place] [address] Jun, [facility] [place] [facility] [address] [id number] [place] [address] Jun, [facility] [place] [facility] [address] [id number] [place] [address] Jun, [facility] [place] [facility] [address] [id number] [place] [address] Jun, [facility] [place] [facility] [address] [id number], [place] [address] Mar, [facility] [place] [facility] [address] [id number] [place] [address] Mar, [facility] [place] [facility] [address] [id number] [place] [address] Feb, [facility] [place] [facility] [address] [id number] [place] [address] Feb, [facility] [place] [facility] [address] [id number] [place] [address] Feb, [facility] [address] [id number] [place] [address] Jan, [facility] [address] [id number] [place] [address] Jan, [facility] [address] [id number] [place] [address] Dec, [facility] [address] [id number] [place] [address]- [address] Nov, [facility] [address] [id number] [place] [address] Sep, [facility] [address] [id number] [place] [address] Aug, [facility] [address] [id number] [place] [address] Aug, [facility] [address] [id number] [place] [address] Aug, [facility] [address] [id number] [place] [address] Jul, [facility] [address] [id number] [place] [address] Jul, [facility] [address] [id number] [place] [address] Jul, [facility] [address] [id number] [place] [address] Jul, [facility] [place] [facility] [address] [id number] [place] [address] Jul, [facility] [address] [id number] [place] [address] Apr, [facility] [address] [id number] [place] [address] Apr, [facility] [place] [facility] [address] [id number] [place] [address] Jan, [facility] [place] [facility] [address] [id number] [place] [address] Jan, [facility] [place] [facility] [address] [id number] [place] [address] Dec, [facility] [place] [facility] [address] [id number] [place] [address] Dec, [facility] [place] [facility] [address] [id number] [place] [address] Dec, [facility] [place] [facility] [address] [id number] [place] [address] Dec, [facility] [place] [facility] [address] [id number] [place] [address] Dec, [facility] [place] [facility] [address] [id number] [place] [address] October, [facility] [place] [facility] [address] [id number] [place] [address] Aug, [facility] [place] [facility] [address] [id number] [place] [address] Aug, [facility] [place] [facility] [address] [id number] [place] [address] Aug, [facility] [place] [facility] [address] [id number] [place] [address] Jul, [facility] [place] [facility] [address] [id number] [place] [address] May, [facility] [place] [facility] [address] [id number] [place] [address] Apr, [facility] [place] [facility] [address] [id number] [place] [address] May, [facility] [place] [facility] [address] [facility] [id number] [place] [address] May, [facility] [address] [facility] [id number], [place] [address] May, [facility] [address] [facility] [id number], [place] [address] Mar, [facility] [address] [facility] [id number], [place] [address] Mar, [facility] [address] [facility] [id number], [place] [address] Aug, IMMUNIZATIONS No Known Immunizations SOCIAL HISTORY Never Assessed REASON FOR VISIT Controlled Med Refill 02/15/18 PLAN OF CARE VITAL SIGNS MEDICATIONS Medication Instructions Dosage Frequency Start Date End Date Duration Status Lyrica 150 MG Orally 3 times a day 1 capsule 8h Apr, 28 days Active Percocet 10-325 MG Orally 5 times per day 1 tablet as needed Jan, 28 days Active RESULTS No Results PROCEDURES No Known procedures INSTRUCTIONS MEDICATIONS ADMINISTERED No Known Medications MEDICAL (GENERAL) HISTORY Type Description Date Medical History chronic pain Medical History arthritis Surgical History Nephrectomy - age 3 Surgical History Appendectomy Hospitalization History surgery Hospitalization History childbirth x 3
--- OUTSIDE RECORDS SUMMARY | 2018-06-07 13:21 | XMS REPORT ---
Author Author CHUY NGUYEN [facility] Address [address] [place] [address] Care Team Providers Care Forensic Dna Analyst Name Role Phone CHUY NGUYEN Unavailable PROBLEMS Type Condition ICD9-CM Code QKW47-SN Code Onset Dates Condition Status SNOMED Code Problem Other chronic pain G89.29 Active 57642097 Problem 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.50 Active 99265895 Problem Myalgia M79.1 Active 71989258 Problem Urinary urgency R39.15 Active 81284355 Problem Dysthymia F34.1 Active 94025143 Problem Varicose veins I86.8 Active 147934092 Problem Scoliosis (and kyphoscoliosis), idiopathic M41.20 Active 43476453 Problem 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 Active [id number] Problem Need for prophylaxis against urinary tract infection Z29.8 Active 003675448 Problem Major depressive disorder, single episode, unspecified F32.9 Active 70658166 Problem Scoliosis, unspecified scoliosis type, unspecified spinal region M41.9 Active 833164762 Problem Abnormal mammogram of left breast R92.8 Active 264660989 Problem Calculus of gallbladder without cholecystitis without obstruction K80.20 Active 789251143 ALLERGIES Substance Reaction Event Type Date Status Sulfamethoxazole-Trimethoprim Unknown Drug Allergy Jan, Active Aspirin Unknown Drug Allergy Jan, Active ENCOUNTERS Encounter Location Date Diagnosis [facility] [address] [facility] [id number], [place] [address] May, [facility] [address] [facility] [id number], [place] [address] Feb, [facility] [address] [facility] [id number], [place] [address] Feb, Trochanteric bursitis, right hip M70.61 ; Chondromalacia, right knee M94.261 and 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1 [facility] [place] [address] [id number] [place] [address] 69676- 8344 16 Jan, 2018 Urinary tract infection without hematuria, site unspecified N39.[address] [address]- 8121 13 Jan, 2018 Therapeutic drug monitoring Z51.81 ; Scoliosis, unspecified scoliosis type, unspecified spinal region M41.9 ; Chronic prescription opiate use Z79.891 ; Dysthymia F34.1 ; Alcohol use Z78.9 and Frequent urinary tract infections N39.0 [place] [address] [id number] [place] [address] 69051- 5583 Dec, Other chronic pain G89.29 and Myalgia M79.1 [place] [id number] [place] [address] 17557- 2577 Dec, Impacted cerumen, right ear H61.21 and Dysfunction of right eustachian tube H69.81 [place] [id number] [place] [address] 44280- 6421 Nov, Myalgia M79.1 and Other chronic pain G89.29 [facility] [address] [address] October, Other chronic pain G89.29 and Myalgia M79.1 [facility] [id number] [place] [address] 51754- 9952 Sep, Other chronic pain G89.29 [facility] [id number] [place] [address] 88464- 4774 Aug, Other chronic pain G89.29 [facility] [address] [id number] [place] [address] 46629- 9390 Aug, Scoliosis (and kyphoscoliosis), idiopathic M41.20 [facility] [address] [id number] [place] [address] 03236- 3401 Aug, [facility] [address] [id number] [place] [address] 58692- 4242 Aug, Dysuria R30.0 ; Scoliosis, unspecified scoliosis type, unspecified spinal region M41.9 ; Encounter for therapeutic drug level monitoring Z51.81 and Alcohol use Z78.9 [facility] [address] [id number] [place] [address] 01225- 4210 Aug, Other chronic pain G89.29 [facility] [id number] [place] [address] 44952- 5043 Jul, Chronic urinary tract infection N39.0 [facility] [id number] [place] [address] 33562- 5525 Jul, Other chronic pain G89.29 [facility] [address] [id number] [place] [address] 05872- 6944 Jun, [facility] [address] [id number] [place] [address] 39567- 4126 Jun, [facility] [address] [id number] [place] [address] 01071- 9474 Jun, Acute left-sided thoracic back pain M54.6 [facility] [id number] [place] [address] 69576 -2066 18 Jun, 2017 Cough R05 and Acute bilateral thoracic back pain M54.6 [facility] [id number] [place] [address] 43531 -4442 15 Jun, 2017 Back pain, unspecified back location, unspecified back pain laterality, unspecified chronicity M54.9 and Left flank pain R10.9 [place] [address] [id number] [place] [address] 08156- 1907 Jun, Other chronic pain G89.29 [place] [address] 21896- 4973 03 Jun, 2017 Myalgia M79.1 [place] [address] [address] [id number] [place] [address] 76233- 1877 13 May, 2017 Other chronic pain G89.29 [facility] [address] [address] [id number] [place] [address] 36434- 5754 07 May, 2017 Myalgia M79.1 and Fatigue due to exposure, subsequent encounter T73.2XXD [facility] [address] [id number] [place] [address] 37372- 0650 05 May, 2017 Fatigue due to exposure, subsequent encounter T73.2XXD [facility] [address] [id number] [place] [address] 33119- 1715 15 Apr, 2017 Other chronic pain G89.29 and Myalgia M79.1 [facility] [address] [address] [id number] [place] [address] 45354- 3103 08 Apr, 2017 Closed nondisplaced fracture of phalanx of left great toe with routine healing, unspecified phalanx, subsequent encounter S92.405D ; Dysuria R30.0 ; Localized edema R60.0 and 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.50 [facility] [address] [id number] [place] [address] 10842- 7803 Mar, Other chronic pain G89.29 and Myalgia M79.1 [facility] [id number] [place] [address] 59757- 2993 Mar, [facility] [address] [id number] [place] [address] 17474- 5258 Mar, Dysuria R30.0 ; Other chronic pain G89.29 ; Scoliosis, unspecified scoliosis type, unspecified spinal region M41.9 and Chronic urinary tract infection N39.0 [facility] [address] [place] [address] [id number] [place] [address] 41682- 0712 Feb, 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.50 and Myalgia M79.1 [place] [address] [place] [id number] [place] [address] 02596- 9732 Feb, [place] [address] [place] [address] [id number] [place] [address] 42613- 0660 Feb, [facility] [address] [place] [address] [id number] [place] [address] 78196- 0283 Feb, Closed compression fracture of L4 lumbar vertebra with routine healing, subsequent encounter S32.040D ; Closed nondisplaced fracture of phalanx of left great toe with routine healing, unspecified phalanx, subsequent encounter S92.405D and Chronic urinary tract infection N39.0 [facility] [id number] [place] [address] 60669- 0257 Jan, Closed compression fracture of fourth lumbar vertebra, initial encounter S32.040A [facility] [address] [id number] [place] [address] 68995- 5516 Jan, Urinary tract infection, site not specified N39.0 [facility] [id number] [place] [address] 97439- 8006 Jan, [facility] [address] [id number] [place] [address] 98951- 1087 Jan, [facility] [address] [id number] [place] [address] 57757- 3129 Jan, 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.50 and Myalgia M79.1 [facility] [id number] [place] [address] 02526- 6569 Jan, Need for prophylaxis against urinary tract infection Z29.8 and Urinary tract infection, site not specified N39.0 [facility] [id number] [place] [address] 16484- 7502 Dec, Urinary tract infection, site not specified N39.0 and Need for prophylaxis against urinary tract infection Z29.8 [place] [address] [id number] [place] [address] 75977- 6395 Dec, Major depressive disorder, single episode, unspecified F32.9 ; Myalgia M79.1 ; 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.50 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 [place] [address] [address] [id number] [place] [address] 58027- 4169 Dec, Other chronic pain G89.29 and Dysuria R30.0 [place] [address] [place] [id number] [place] [address] 93222- 8510 Nov, intermediate 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 Z79.891 [place] [address] [place] [address] 06325- 0049 Nov, Acute midline low back pain without sciatica M54.5 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 [place] [address] [place] [address] 00893- 3249 Nov, [facility] [id number] [place] [address] 87519- 9060 October, [place] [address] [place] [id number] [place] [address] 19525- 3334 October, [facility] [address] [place] [address] 83179- 9607 Sep, Right leg pain M79.604 [place] [address] [place] [id number] [place] [address] 20501- 3205 Sep, [facility] [address] [id number] [place] [address] 60913- 9024 Aug, Right leg pain M79.604 [facility] [address] [id number] [place] [address] 51852- 4326 Jul, [facility] [address] 60891- 6789 Jul, 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.50 and Right leg pain M79.604 [place] [address] [place] [address] [id number] [place] [address] 94006- 6302 Jun, 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.50 [place] [address] [place] [id number] [place] [address] 47381- 8306 Jun, [place] [address] 32869- 3390 Jun, Right leg pain M79.604 [place] [address] [place] [id number] [place] [address] 98637- 1877 Jun, Right leg pain M79.604 [place] [address] [address] [id number] [place] [address] 24603- 4579 Jun, Abnormal mammogram of left breast R92.8 [place] [address] [place] [id number] [place] [address] 34951- 4551 May, Routine gynecological examination V72.31 ; Breast cancer screening Z12.39 ; Cervical cancer screening Z12.4 ; Colon cancer screening Z12.11 and Calculus of gallbladder without cholecystitis without obstruction K80.20 [place] [address] [place] [id number] [place] [address] 04344- 4453 May, 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.50 [place] [address] [place] [id number] [place] [address] 72252- 4184 Apr, 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.50 [place] [address] [place] [id number] [place] [address] 95049- 7421 17 Apr, 2016 Screening, lipid Z13.220 [place] [address] [place] [id number] [place] [address] 00934- 4060 14 Apr, 2016 Other chronic pain G89.29 ; Scoliosis, unspecified scoliosis type, unspecified spinal region M41.9 ; Right leg pain M79.604 ; Major depressive disorder, single episode, unspecified F32.9 ; Fatigue due to exposure, subsequent encounter T73.2XXD ; Dysthymia F34.1 and Screening, lipid Z13.220 [place] [address] [place] [id number] [place] [address] 09708- 3275 Apr, 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.50 [place] [address] [place] [id number] [place] [address] 48016- 0851 Mar, Dysthymia 300.4 [place] [address] 08154- 1250 Mar, 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.50 [place] [address] [place] [id number] [place] [address] 29964- 5318 Feb, 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.50 [place] [address] [place] [id number] [place] [address] 61702- 1008 Jan, 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.50 [place] [address] [place] [id number] [place] [address] 91083- 6270 Dec, 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 [place] [address] [place] [id number] [place] [address] 06240- 2990 Dec, [place] [address] [place] [address] [id number] [place] [address] 94432- 7627 Dec, Right leg pain M79.604 and Scoliosis, unspecified scoliosis type, unspecified spinal region M41.9 [place] [address] [place] [id number] [place] [address] 66637- 2125 Dec, Right leg pain M79.604 and Scoliosis, unspecified scoliosis type, unspecified spinal region M41.9 [place] [address] 10037- 0870 Dec, 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.50 [place] [address] 38253- 7441 Nov, 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.50 [place] [address] 21876- 8549 October, 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.50 and Scoliosis, unspecified scoliosis type , unspecified spinal region M41.9 [place] [address] 71871- 5474 Sep, [place] [address] 85386- 5654 Aug, [place] [address] 99091- 2153 Aug, 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.50 ; Myalgia M79.1 and Scoliosis M41.9 [place] [address] 82980- 7662 Jul, Other chronic pain G89.29 [place] [address] 70641- 0693 Jul, Other chronic pain G89.29 [place] [address] 65741- 3826 Jul, Impingement syndrome of both shoulders M75.41 [place] [address] 57866- 0522 Jun, [place] [address] 81194- 7079 Jun, [place] [address] 34881- 7118 Jun, Scoliosis (and kyphoscoliosis), idiopathic M41.20 and Other chronic pain G89.29 [facility] [address] [place] [address] 59986 -9684 Jun, Upper respiratory tract infection, unspecified type 465.9 and Rhinorrhea J34.89 [facility] [address] [id number] [place] [address] 24290- 2233 May, [facility] [address] 76807- 7950 May, [place] [address] [place] [id number] [place] [address] 68332- 8766 Apr, Dysuria R30.0 ; Urinary tract infection, site not specified N39.0 and Hematuria, unspecified R31.9 [place] [address] [id number] [place] [address] 38131- 2868 Apr, [place] [address] 69368- 9059 Mar, Family history of early CAD Z82.49 [place] [address] [id number] [place] [address] 02746- 8313 Mar, Other chronic pain G89.29 [place] [address] [place] [id number] [place] [address] 00291- 1594 Mar, Impingement syndrome of both shoulders M75.41 [place] [address] [place] [id number] [place] [address] 30240- 6479 Mar, Other chronic pain G89.29 ; Dysthymia F34.1 ; Family history of early CAD Z82.49 ; Dysuria R30.0 and Other specified disorders of Eustachian tube, right ear H69.81 [place] [address] [place] [id number] [place] [address] 69755- 4968 Mar, [place] [address] [place] [address] [id number] [place] [address] 25147- 6868 Feb, [place] [address] [place] [address] 3456 Jan, [facility] [id number] [place] [address] 03676- 6596 Jan, Eustachian tube dysfunction 381.81 and Dysthymia 300.4 [facility] [address] [id number] [place] [address] 42276 2546 Dec, [facility] [address] [id number] [place] [address] 79319 2548 Nov, Impingement syndrome of both shoulders 726.2 [facility] [address] [id number] [place] [address] 03990- 0646 Nov, [facility] [address] [id number] [place] [address] 16510- 7616 Nov, [facility] [address] [id number] [place] [address] 26982- 7971 Nov, Urgency of urination 788.63 [facility] [address] [id number] [place] [address] 29781- 1659 October, [facility] [id number] [place] [address] 30026- 7240 October, [facility] [address] [address]- 4487 Sep, [facility] [id number] [place] [address] 89784 2548 Sep, [facility] [address] [address] 2545 Aug, [facility] [id number] [place] [address] 02987- 0096 Aug, [facility] [address] [address]- 2546 Aug, [facility] [id number] [place] [address] 20861- 0514 Aug, [facility] [place] [facility] [address] [id number] [place] [address]- 8687 Aug, [facility] [place] [facility] [address] [id number] [place] [address]- 5078 Aug, [facility] [place] [facility] [address] [id number] [place] 6121 Aug, [facility] [place] [facility] [address] [id number] [place] [address]- 3260 Jul, [facility] [place] [facility] [address] [id number] [place] 3606 Jul, [facility] [place] [facility] [address] [id number] [place] [address]- 8664 Jul, [facility] [place] [facility] [address] [facility] [id number] [place] [address]- 6377 Jul, [facility] [place] [facility] [address] [id number] [place] [address]- 3303 Jul, [facility] [place] [facility] [address] [id number] [place] [address]- 2917 Jul, [facility] [place] [facility] [address] [facility] [id number] [place] [address]- 3774 Jun, [facility] [place] [facility] [address] [id number] [place] [address]- 5837 Jun, [facility] [place] [facility] [address] [id number] [place] [address]- 1606 May, [facility] [place] [facility] [address] [id number] [place] [address]- 5791 May, [facility] [place] [facility] [address] [facility] [id number] [place] [address]- 6300 May, [facility] [place] [facility] [address] [facility] [id number] [place] [address]- 6010 May, [facility] [place] [facility] [address] [id number] [place] [address]- 1509 Mar, [facility] [place] [facility] [address] [id number] [place] [address]- 2264 Mar, [facility] [place] [facility] [address] [id number] [place] [address]- 2668 Feb, [facility] [place] [facility] [address] [id number] [place] [address]- 7329 Feb, [facility] [place] [facility] [address] [id number] [place] [address]- 0239 Jan, [facility] [place] [facility] [address] [id number] [place] [address]- 5188 Jan, [facility] [place] [facility] [address] [id number] [place] [address]- 4533 Jan, [facility] [place] [facility] [address] [id number] [place] [address]- 8471 Jan, [facility] [place] [facility] [address] [id number] [place] [address]- 6912 Jan, [facility] [place] [facility] [address] [id number] [place] [address]- 0126 Nov, [facility] [place] [facility] [address] [id number] [place] [address]- 8204 Nov, [facility] [place] [facility] [address] [id number] [place] [address]- 8265 October, [facility] [place] [facility] [address] [id number] [place] [address]- 9024 October, [facility] [place] [facility] [address] [id number] [place] [address]- 1230 October, [facility] [place] [facility] [address] [id number] [place] [address]- 4698 October, [facility] [place] [facility] [address] [id number] [place] [address]- 5956 Sep, [facility] [place] [facility] [address] [id number] [place] [address]- 7375 Aug, [facility] [place] [facility] [address] [id number] [place] [address]- 1325 Aug, [facility] [place] [facility] [address] [id number] [place] [address]- 9099 Aug, [facility] [place] [facility] [address] [id number] [place] [address] Aug, [facility] [place] [facility] [address] [id number] [place] [address] Jul, [facility] [place] [facility] [address] [id number] [place] [address] Jul, [facility] [place] [facility] [address] [id number] [place] [address] Jun, [facility] [place] [facility] [address] [id number] [place] [address] Jun, [facility] [place] [facility] [address] [id number] [place] [address] Jun, [facility] [place] [facility] [address] [id number], [place] [address] Jun, [facility] [place] [facility] [address] [id number], [place] [address] Jun, [facility] [place] [facility] [address] [id number], [place] [address] Jun, [facility] [place] [facility] [address] [id number] [place] [address] Mar, [facility] [place] [facility] [address] [id number], [place] [address] Mar, [facility] [place] [facility] [address] [id number], [place] [address] Feb, [facility] [place] [facility] [address] [id number], [place] [address] Feb, [facility] [address] [id number] [place] [address] Feb, [facility] [place] [facility] [address] [id number] [place] [address] Jan, [facility] [address] [facility] [id number] [place] [address] Jan, [facility] [place] [facility] [address] [id number] [place] [address] Dec, [facility] [place] [facility] [address] [id number] [place] [address] Nov, [facility] [place] [facility] [address] [id number] [place] [address] Sep, [facility] [id number] [place] [address] Aug, [facility] [place] [facility] [address] [id number] [place] [address] Aug, [facility] [address] [id number] [place] [address] Aug, [facility] [place] [facility] [id number] [place] [address] Jul, [facility] [id number] [place] [address] Jul, [facility] [place] [facility] [address] [facility] [id number], [place] [address] Jul, [facility] [place] [facility] [address] [id number] [place] [address] Jul, [facility] [place] [facility] [address] [facility] [id number], [place] [address] Jul, [facility] [place] [facility] [address] [id number], [place] [address] Apr, [facility] [place] [facility] [address] [id number] [place] [address] Apr, [facility] [place] [facility] [address] [id number] [place] [address]- [address] Jan, [facility] [place] [facility] [address] [id number] [place] [address]- [address] Jan, [facility] [place] [facility] [address] [id number] [place] [address] Dec, [facility] [address] [id number] [place] [address] Dec, [facility] [place] [facility] [address] [id number] [place] [address] Dec, [facility] [address] [id number] [place] [address]- [address] Dec, [facility] [address] [id number] [place] [address] 47[address] Dec, [facility] [place] [facility] [address] [id number] [place] [address] October, [facility] [place] [facility] [address] [address] [id number] [place] [address] Aug, [facility] [place] [facility] [address] [id number] [place] [address] Aug, [facility] [place] [facility] [address] [id number] [place] [address] Aug, [facility] [place] [facility] [address] [id number] [place] [address] Jul, [facility] [place] [facility] [address] [id number] [place] [address] May, [facility] [place] [facility] [address] [id number] [place] [address] Apr, [facility] [place] [facility] [address] [id number], [place] [address] May, [facility] [address] [facility] [id number], [place] [address] May, [facility] [address] [facility] [id number][place] [address] May, [facility] [address] [facility] [id number], [place] [address] Mar, [facility] [address] [facility] [id number], [place] [address] Mar, [facility] [address] [facility] [id number], [place] [address] Aug, IMMUNIZATIONS No Known Immunizations SOCIAL HISTORY Never Assessed REASON FOR VISIT Pain management (chronic), Would like to discuss increasing her Lyrica, Concerns with shooting pain in her back, would like to restart muscle relaxer she was given from [facility], C/O bladder spasms - has stopped taking Macrobid due to urinary retention, Cassie PLAN OF CARE Activity Details Follow Up 3 Months Reason:pain mgmt and fasting labs VITAL SIGNS Height 66.5 in 2018-02-05 Weight 168.8 lbs 2018-02-05 Temperature 98.0 degrees Fahrenheit 2018-02-05 Heart Rate 60 bpm 2018-02-05 Respiratory Rate 18 2018-02-05 BMI 26.83 kg/m2 2018-02-05 Blood pressure systolic 120 mmHg 2018-02-05 Blood pressure diastolic 78 mmHg 2018-02-05 MEDICATIONS Medication Instructions Dosage Frequency Start Date End Date Duration Status Vitamin D3 68802 UNIT Orally once weekly 1 capsule May, Active Lyrica 150 MG Orally 3 times a day 1 capsule 8h 14 Apr, 2016 28 days Active Flonase Allergy Relief 50 MCG/ACT Nasally Once a day 1 spray in each nostril 24h Dec, 30 day(s) Active Chlorzoxazone 500 mg Orally 2 times a day 1 tablet 12h 13 Jan, 2018May 30 day(s) Active Percocet 10-325 MG Orally 5 times per day 1 tablet as needed Dec, 28 days Active Premarin 0.625 MG/GM Vaginal 3 times a week as directed Mar, Active RESULTS No Results PROCEDURES Procedure Date Ordered Result Body Site 09 PANEL (PROFILE 1) Feb 05, 2018 URINALYSIS, AUTO, W/O SCOPE Feb 05, 2018 URINE CULTURE/COLONY COUNT Feb 05, 2018 INSTRUCTIONS MEDICATIONS ADMINISTERED No Known Medications MEDICAL (GENERAL) HISTORY Type Description Date Medical History chronic pain Medical History arthritis Surgical History Nephrectomy - age 3 Surgical History Appendectomy Hospitalization History surgery Hospitalization History childbirth x 3
--- OUTSIDE RECORDS SUMMARY | 2018-06-07 13:22 | XMS REPORT ---
Author Author CHUY NGUYEN Organization [facility] Address [address] [place] [address] Care Team Providers Care Hand Alterations Tailor Name Role Phone CHUY NGUYEN Unavailable PROBLEMS Type Condition ICD9-CM Code PUN72-[place] Code Onset Dates Condition Status SNOMED Code Problem Scoliosis (and kyphoscoliosis), idiopathic M41.20 Active 54844983 Problem Myalgia M79.1 Active 25516164 Problem Other chronic pain G89.29 Active 74687895 Problem Urinary urgency R39.15 Active 33496248 Problem Dysthymia F34.1 Active 66581282 Problem Varicose veins I86.8 Active 364585364 Problem Need for prophylaxis against urinary tract infection Z29.8 Active 196739609 Problem Abnormal mammogram of left breast R92.8 Active 087642518 Problem Scoliosis, unspecified scoliosis type, unspecified spinal region M41.9 Active 214562745 Problem 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.50 Active 14028836 Problem Calculus of gallbladder without cholecystitis without obstruction K80.20 Active 276319851 Problem Major depressive disorder, single episode, unspecified F32.9 Active 92751039 ALLERGIES No Information ENCOUNTERS Encounter Location Date Diagnosis [place] [id number], [place] [address] Feb, [place] [id number] [place] [address] 60787- 5159 Feb, [place] [id number] [place] [address] 47207- 1288 Jan, [place] [id number] [place] [address] 46843- 2376 Jan, Right hip pain M25.551 and Opioid use disorder, mild, in controlled environment F11.10 [place] [address] [id number] [place] [address] 51591- 0555 Jan, Other chronic pain G89.29 and Myalgia M79.1 [place] [id number] [place] [address] 31458- 2497 16 Jan, 2018 Urinary tract infection without hematuria, site unspecified N39.0 [place] [id number] [place] [address] 91805- 0295 13 Jan, 2018 Therapeutic drug monitoring Z51.81 ; Scoliosis, unspecified scoliosis type, unspecified spinal region M41.9 ; Chronic prescription opiate use Z79.891 ; Dysthymia F34.1 ; Alcohol use Z78.9 and Frequent urinary tract infections N39.0 [place] [address] [id number] [place] [address] 99392- 3246 Dec, Other chronic pain G89.29 and Myalgia M79.1 [place] [id number] [place] [address] 80750- 1771 Dec, Impacted cerumen, right ear H61.21 and Dysfunction of right eustachian tube H69.81 [place] [id number] [place] [address] 23040- 6023 Nov, Myalgia M79.1 and Other chronic pain G89.29 [place] [id number] [place] [address] 01658- 8809 October, Other chronic pain G89.29 and Myalgia M79.1 [place] [id number] [place] [address] 47867- 1821 Sep, Other chronic pain G89.29 [place] [id number] [place] [address] 99788- 4180 Aug, Other chronic pain G89.29 [place] [id number] [place] [address] 78880- 6721 Aug, Scoliosis (and kyphoscoliosis), idiopathic M41.20 [place] [id number] [place] [address] 91380- 1020 20 Aug, 2017 [place] [id number] [place] [address] 44377- 0367 12 Aug, 2017 Dysuria R30.0 ; Scoliosis, unspecified scoliosis type, unspecified spinal region M41.9 ; Encounter for therapeutic drug level monitoring Z51.81 and Alcohol use Z78.9 [place] [address] 07216- 9441 07 Aug, 2017 Other chronic pain G89.29 [place] [address] [id number] [place] [address] 68509- 6262 23 Jul, 2017 Chronic urinary tract infection N39.0 [place] [id number] [place] [address] 70299- 4586 07 Jul, 2017 Other chronic pain G89.29 [place] [id number] [place] [address] 05295- 8197 Jun, [place] [id number] [place] [address] 97051- 3163 Jun, [place] [id number] [place] [address] 04935- 3590 Jun, Acute left-sided thoracic back pain M54.6 [facility] [address] [place] [id number] [place] [address] 14340 -8686 Jun, Cough R05 and Acute bilateral thoracic back pain M54.6 [facility] [address] [place] [id number] [place] [address] 79578 -7783 15 Jun, 2017 Back pain, unspecified back location, unspecified back pain laterality, unspecified chronicity M54.9 and Left flank pain R10.9 [place] [address] [id number] [place] [address] 50484- 9629 Jun, Other chronic pain G89.29 [place] [address] [id number] [place] [address] 04537- 6769 Jun, Myalgia M79.1 [place] [id number] [place] [address] 66204- 5616 May, Other chronic pain G89.29 [place] [address] [address] [id number] [place] [address] 62656- 4835 May, Myalgia M79.1 and Fatigue due to exposure, subsequent encounter T73.2XXD [place] [address] [id number] [place] [address] 02234- 9918 May, Fatigue due to exposure, subsequent encounter T73.2XXD [place] [address] [id number] [place] [address] 06517- 0210 Apr, Other chronic pain G89.29 and Myalgia M79.1 [place] [address] [id number] [place] [address] 58413- 4938 Apr, Closed nondisplaced fracture of phalanx of left great toe with routine healing, unspecified phalanx, subsequent encounter S92.405D ; Dysuria R30.0 ; Localized edema R60.0 and 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.50 [place] [address] [address] [id number] [place] [address] 82227- 3736 Mar, Other chronic pain G89.29 and Myalgia M79.1 [place] [address] [id number] [place] [address] 49895- 8998 Mar, [place] [address] [address] [id number] [place] [address] 96037- 9655 Mar, Dysuria R30.0 ; Other chronic pain G89.29 ; Scoliosis, unspecified scoliosis type, unspecified spinal region M41.9 and Chronic urinary tract infection N39.0 [place] [address] [address] [id number] [place] [address] 97324- 7751 Feb, 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.50 and Myalgia M79.1 [place] [address] [place] [address] [id number] [place] [address] 25113- 4681 Feb, [facility] [address] [facility] [id number] [address] 133[address] Feb, [facility] [id number] [address] 2823 Feb, Closed compression fracture of L4 lumbar vertebra with routine healing, subsequent encounter S32.040D ; Closed nondisplaced fracture of phalanx of left great toe with routine healing, unspecified phalanx, subsequent encounter S92.405D and Chronic urinary tract infection N39.0 [facility] [id number] [address]- 9717 Jan, Closed compression fracture of fourth lumbar vertebra, initial encounter S32.040A [facility] [address] [id number] [address]- 5968 Jan, Urinary tract infection, site not specified N39.0 [facility] [address], [place] [address]- 3572 Jan, [facility] [id number] [address]- 3054 Jan, [facility] [id number] [address]- 3853 Jan, 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.50 and Myalgia M79.1 [facility] [id number] [address]- 1804 Jan, Need for prophylaxis against urinary tract infection Z29.8 and Urinary tract infection, site not specified N39.0 [facility] [address] [facility] [id number] [address]- 9896 Dec, Urinary tract infection, site not specified N39.0 and Need for prophylaxis against urinary tract infection Z29.8 [facility] [address] [id number] [address]- 8501 Dec, Major depressive disorder, single episode, unspecified F32.9 ; Myalgia M79.1 ; 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.50 and skilled nursing 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 Z79.891 [facility] [address] [place] [address] 63466- 6386 Dec, Other chronic pain G89.29 and Dysuria R30.0 [facility] [address] [place] [address] 35322 2546 Nov, skilled nursing 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 Z79.891 [facility] [address] [id number] [place] [address] 83185 2546 Nov, Acute midline low back pain without sciatica M54.5 and skilled nursing 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 Z79.891 [facility] [address] [id number] [place] [address] 26215- 5006 Nov, [facility] [address] [id number] [place] [address] 00960- 5176 October, [facility] [address] [id number] [place] [address] 90015- 3211 October, [facility] [address] [id number] [place] [address] 26291- 9811 Sep, Right leg pain M79.604 [facility] [address] [id number] [place] [address] 68577- 0546 Sep, [facility] [address] [place] [address] 94012- 9742 Aug, Right leg pain M79.604 [facility] [address] [id number] [place] [address] 44952 2546 Jul, [facility] [address] [id number] [place] [address] 46489- 8516 Jul, 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.50 and Right leg pain M79.604 [facility] [id number] [place] [address] 91222 2546 Jun, 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.50 [facility] [address] [place] [id number] [place] [address] 72304- 7250 Jun, [place] [address] [place] [id number] [place] [address] 61694- 7722 Jun, Right leg pain M79.604 [place] [address] [place] [address] [id number] [place] [address] 33532- 8479 Jun, Right leg pain M79.604 [place] [address] 24264- 5712 Jun, Abnormal mammogram of left breast R92.[address] 74348- 6268 May, Routine gynecological examination V72.31 ; Breast cancer screening Z12.39 ; Cervical cancer screening Z12.4 ; Colon cancer screening Z12.11 and Calculus of gallbladder without cholecystitis without obstruction K80.[address] 31744- 7659 May, 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.50 [place] [address] [place] [id number] [place] [address] 24649- 6616 Apr, 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.50 [place] [address] [place] [id number] [place] [address] 23051- 7209 17 Apr, 2016 Screening, lipid Z13.220 [place] [id number] [place] [address] 31491- 4408 14 Apr, 2016 Other chronic pain G89.29 ; Scoliosis, unspecified scoliosis type, unspecified spinal region M41.9 ; Right leg pain M79.604 ; Major depressive disorder, single episode, unspecified F32.9 ; Fatigue due to exposure, subsequent encounter T73.2XXD ; Dysthymia F34.1 and Screening, lipid Z13.220 [place] [address] [place] [id number] [place] [address] 27299- 7564 Apr, 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.50 [place] [address] [place] [address]- 4731 Mar, Dysthymia 300.4 [facility] [address] [place] [id number] [place] [address] 53181- 6982 Mar, 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.50 [facility] [id number] [place] [address] 49615- 0119 Feb, 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.50 [facility] [id number] [place] [address] 49989- 2554 Jan, 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.50 [facility] [id number] [place] [address] 01808- 5214 Dec, 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50 [facility] [id number] [place] [address] 30361- 3693 Nov, 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.50 [facility] [address] [place] [id number] [place] [address] 70667- 5125 October, 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.50 and Scoliosis, unspecified scoliosis type , unspecified spinal region M41.9 [facility] [address] [id number] [place] [address] 20902- 7029 Sep, [facility] [id number] [place] [address] 51694- 4018 Aug, [facility] [address] 21563- 7731 Aug, 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.50 ; Myalgia M79.1 and Scoliosis M41.9 [place] [address] [place] [id number] [place] [address] 94165- 0196 Jul, Other chronic pain G89.29 [facility] [address] [id number] [place] [address] 55105- 8231 Jul, Other chronic pain G89.29 [place] [address] 75322- 1816 Jul, Impingement syndrome of both shoulders M75.41 [place] [address] [place] [id number] [place] [address] 01018- 2033 Jun, [facility] [address] 43821- 9039 Jun, [place] [address] [place] [id number] [place] [address] 12643- 0483 Jun, Scoliosis (and kyphoscoliosis), idiopathic M41.20 and Other chronic pain G89.29 [facility] [id number] [place] [address] 32803 -1531 Jun, Upper respiratory tract infection, unspecified type 465.9 and Rhinorrhea J34.89 [facility] [id number] [place] [address] 30634- 0029 May, [place] [address] 02969- 7054 May, [facility] [id number] [place] [address] 65558- 2475 Apr, Dysuria R30.0 ; Urinary tract infection, site not specified N39.0 and Hematuria, unspecified R31.9 [facility] [id number] [place] [address] 86314- 5830 Apr, [facility] [address] 13672- 9946 Mar, Family history of early CAD Z82.49 [facility] [id number] [place] [address] 39331- 0719 Mar, Other chronic pain G89.29 [facility] [address] 75872- 5409 Mar, Impingement syndrome of both shoulders M75.41 [facility] [address] 85584- 8121 Mar, Other chronic pain G89.29 ; Dysthymia F34.1 ; Family history of early CAD Z82.49 ; Dysuria R30.0 and Other specified disorders of Eustachian tube, right ear H69.81 [facility] [id number] [place] [address] 47967- 4268 Mar, [facility] [address] 65898- 9887 Feb, [facility] [id number] [place] [address] 60768- 1607 Jan, [facility] [id number] [place] [address] 13951- 7491 Jan, Eustachian tube dysfunction 381.81 and Dysthymia 300.4 [facility] [address] [place] [id number] [place] [address] 34792- 2299 Dec, [facility] [address] 32346- 7651 Nov, Impingement syndrome of both shoulders 726.2 [facility] [address] [id number] [place] [address] 07531- 9074 Nov, [facility] [address] 13817- 3324 Nov, [facility] [address] [facility] [id number] [place] [address]- 8379 Nov, Urgency of urination 788.63 [facility] [address] [id number] [place] [address] 2546 October, [facility] [address] [facility] [id number] [place] [address]- 9656 October, [facility] [address] [id number] [place] [address] 2549 Sep, [facility] [address] [facility] [id number] [place] [address]- 0540 Sep, [facility] [address] [facility] [id number] [place] [address]- 2962 Aug, [facility] [address] [id number] [address]- 2857 Aug, [facility] [address] [facility] [id number] [place] [address]- 8982 Aug, [facility] [address] [facility] [id number] [place] [address]- 1063 Aug, [facility] [address] [facility] [id number] [address]- 4128 Aug, [facility] [address] [facility] [id number] [place] [address] 2546 Aug, [facility] [address] [facility] [id number] [place] [address]- 5614 Aug, [facility] [address] [facility] [id number] [place] [address]- 4564 Jul, [facility] [address] [facility] [id number] [place] [address]- 0416 Jul, [facility] [address] [facility] [id number] [place] 5776 Jul, [facility] [place] [facility] [address] [id number] [place] [address]- 4083 Jul, 2014 [facility] [place] [facility] [address] [id number] [place] [address]- 0612 Jul, [facility] [place] [facility] [address] [facility] [id number] [place] [address]- 5091 Jul, [facility] [place] [facility] [address] [id number] [place] [address]- 4006 Jun, [facility] [place] [facility] [address] [id number] [place] [address]- 0497 Jun, [facility] [place] [facility] [address] [id number] [place] [address]- 7392 May, [facility] [place] [facility] [address] [facility] [id number] [place] [address]- 5941 May, [facility] [place] [facility] [address] [id number] [place] [address]- 6857 May, [facility] [place] [facility] [address] [facility] [id number] [place] [address]- 0421 May, [facility] [place] [facility] [address] [facility] [id number] [place] [address]- 1058 Mar, [facility] [place] [facility] [address] [facility] [id number] [address]- 6480 Mar, [facility] [place] [facility] [address] [id number], [place] [address]- 1910 Feb, [facility] [place] [facility] [address] [id number] [place] [address]- 7453 Feb, [facility] [place] [facility] [address] [facility] [id number], [place] [address]- 3495 Jan, [facility] [place] [facility] [address] [facility] [id number] [place] [address]- 6113 Jan, [facility] [place] [facility] [address] [id number] [place] [address]- 6436 Jan, [facility] [place] [facility] [address] [id number] [place] [address]- 6143 Jan, [facility] [place] [facility] [address] [id number] [place] [address]- 7574 Jan, [facility] [place] [facility] [address] [id number] [place] [address]- 8878 Nov, [facility] [place] [facility] [address] [id number] [place] [address]- 8226 Nov, [facility] [place] [facility] [address] [id number] [place] 1981 October, [facility] [place] [facility] [address] [id number] [place] [address]- 7381 October, [facility] [place] [facility] [address] [id number] [place] [address]- 3777 October, [facility] [place] [facility] [address] [id number] [place] [address]- 2606 October, [facility] [place] [facility] [address] [id number] [place] [address]- 1418 Sep, [facility] [place] [facility] [address] [id number] [place] [address]- 8063 Aug, [facility] [place] [facility] [address] [id number] [place] [address]- 0122 Aug, [facility] [place] [facility] [address] [id number] [place] [address]- 7346 Aug, [facility] [place] [facility] [address] [id number] [place] [address]- 8563 Aug, [facility] [place] [facility] [address] [id number] [place] [address]- 5524 Jul, [facility] [place] [facility] [address] [id number] [place] [address]- 2934 Jul, [facility] [place] [facility] [address] [id number] [place] [address]- 8078 Jun, [facility] [place] [facility] [address] [id number] [place] 5669 Jun, [facility] [place] [facility] [address] [id number] [place] [address]- 8465 Jun, [facility] [place] [facility] [address] [id number] [place] [address]- 2706 Jun, [facility] [place] [facility] [address] [id number] [place] [address]- 1795 Jun, [facility] [place] [facility] [address] [id number] [place] [address] Jun, [facility] [place] [facility] [address] [id number] [place] [address] Mar, [facility] [place] [facility] [address] [id number] [place] [address] Mar, [facility] [place] [facility] [address] [id number] [place] [address] Feb, [facility] [place] [facility] [address] [id number] [place] [address] Feb, [facility] [place] [facility] [address] [id number] [place] [address] Feb, [facility] [place] [facility] [address] [id number] [address] Jan, [facility] [place] [facility] [address] [id number] [place] [address] Jan, [facility] [place] [facility] [address] [id number] [place] [address] Dec, [facility] [place] [facility] [address] [id number] [place] [address] Nov, [facility] [place] [facility] [address] [id number] [place] [address] Sep, [facility] [address] [id number] [place] [address] Aug, [facility] [place] [facility] [address] [id number] [place] [address] Aug, [facility] [place] [facility] [address] [id number] [place] [address] Aug, [facility] [place] [facility] [address] [id number] [place] [address] Jul, [facility] [place] [facility] [address] [id number] [place] [address] Jul, [facility] [place] [facility] [address] [id number] [place] [address] Jul, [facility] [address] [id number] [place] [address] Jul, [facility] [place] [facility] [address] [id number] [place] [address] Jul, [facility] [place] [facility] [address] [id number] [place] [address] Apr, [facility] [address] [id number] [place] [address] Apr, [facility] [place] [facility] [address] [id number] [place] [address] Jan, [facility] [place] [facility] [address] [id number] [place] [address] Jan, [facility] [place] [facility] [address] [id number] [place] [address] Dec, [facility] [place] [facility] [address] [id number] [place] [address] Dec, [facility] [place] [facility] [address] [id number] [place] [address] Dec, [facility] [address] [id number] [place] [address] Dec, [facility] [address] [id number] [place] [address] Dec, [facility] [address] [facility] [id number] [place] [address] October, [facility] [address] [id number] [place] [address] Aug, [facility] [address] [id number] [place] [address] Aug, [facility] [address] [id number] [place] [address]- [address] Aug, [facility] [address] [facility] [id number] [place] [address] Jul, [facility] [address] [facility] [id number] [place] [address] May, [facility] [address] [facility] [id number] [place] [address] Apr, [facility] [address] [facility] [id number] [place] [address] May, [facility] [address] [facility] [id number] [place] [address] May, [facility] [address] [facility] [id number] [address] May, [facility] [address] [facility] [id number] [place] [address] Mar, [facility] [address] [facility] [id number] [place] [address] Mar, [facility] [address] [facility] [id number] [address] Aug, IMMUNIZATIONS No Known Immunizations SOCIAL HISTORY Never Assessed REASON FOR VISIT Controlled Med Refill 01/18/18 PLAN OF CARE VITAL SIGNS MEDICATIONS Medication Instructions Dosage Frequency Start Date End Date Duration Status Percocet 10-325 MG Orally 5 times per day 1 tablet as needed Dec, 28 days Active Lyrica 150 MG Orally [...]
--- OUTSIDE RECORDS SUMMARY | 2018-06-07 13:22 | XMS REPORT ---
Author Author CHUY NGUYEN Organization [facility] Address [address] [place] [address] Care Team Providers Care Transportation Services Representative Name Role Phone CHUY NGUYEN Unavailable PROBLEMS Type Condition ICD9-CM Code SLG50-CH Code Onset Dates Condition Status SNOMED Code Problem Scoliosis (and kyphoscoliosis), idiopathic M41.20 Active 33291353 Problem Myalgia M79.1 Active 77560115 Problem Other chronic pain G89.29 Active 86761297 Problem Urinary urgency R39.15 Active 93147994 Problem Dysthymia F34.1 Active 70671931 Problem Varicose veins I86.8 Active 440952427 Problem Need for prophylaxis against urinary tract infection Z29.8 Active 996840789 Problem Abnormal mammogram of left breast R92.8 Active 952454199 Problem Scoliosis, unspecified scoliosis type, unspecified spinal region M41.9 Active 381353039 Problem 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.50 Active 51129978 Problem Calculus of gallbladder without cholecystitis without obstruction K80.20 Active 318957228 Problem Major depressive disorder, single episode, unspecified F32.9 Active 83739220 ALLERGIES No Information ENCOUNTERS Encounter Location Date Diagnosis [facility] [address] [address] 24 Feb, 2018 [facility] [address] [address] Feb, [facility] [id number] [place] [address] 75134- 4550 18 Feb, 2018 [facility] [id number] [place] [address] 88409- 9515 14 Feb, 2018 Other chronic pain G89.29 and Myalgia M79.1 [facility] [address] [place] [address] 90959- 7899 Jan, [facility] [id number] [place] [address] 46979- 0845 Jan, Right hip pain M25.551 and Opioid use disorder, mild, in controlled environment F11.10 [place] [address] [place] [address] 50611- 2063 Jan, Other chronic pain G89.29 and Myalgia M79.1 [place] [id number] [place] [address] 57359- 9645 Jan, Urinary tract infection without hematuria, site unspecified N39.0 [facility] [facility] [id number] [place] [address] 41588- 5346 13 Jan, 2018 Therapeutic drug monitoring Z51.81 ; Scoliosis, unspecified scoliosis type, unspecified spinal region M41.9 ; Chronic prescription opiate use Z79.891 ; Dysthymia F34.1 ; Alcohol use Z78.9 and Frequent urinary tract infections N39.0 [place] [id number] [place] [address] 03532- 1764 Dec, Other chronic pain G89.29 and Myalgia M79.1 [place] [id number] [place] [address] 24093- 1358 Dec, Impacted cerumen, right ear H61.21 and Dysfunction of right eustachian tube H69.81 [place] [id number] [place] [address] 44700- 9725 Nov, Myalgia M79.1 and Other chronic pain G89.29 [place] [id number] [place] [address] 25419- 0828 October, Other chronic pain G89.29 and Myalgia M79.1 [place] [id number] [place] [address] 76453- 4293 Sep, Other chronic pain G89.29 [facility] [facility] [address] [place] [address]- 9992 Aug, Other chronic pain G89.29 [place] [facility] [address] 05605- 1096 Aug, Scoliosis (and kyphoscoliosis), idiopathic M41.20 [facility] [id number] [place] [address] 83842- 7835 Aug, [place] [address] 65348- 7441 Aug, Dysuria R30.0 ; Scoliosis, unspecified scoliosis type, unspecified spinal region M41.9 ; Encounter for therapeutic drug level monitoring Z51.81 and Alcohol use Z78.9 [place] [address] 05314- 3557 Aug, Other chronic pain G89.29 [place] [address] 33692- 8468 Jul, Chronic urinary tract infection N39.0 [place] [address] 79048- 9158 Jul, Other chronic pain G89.29 [facility] [id number] [place] [address] 76577- 5974 Jun, [place] [id number] [place] [address] 29059- 2124 Jun, [place] [id number] [place] [address] 00732- 6168 Jun, Acute left-sided thoracic back pain M54.6 [facility] [id number] [place] [address] 20734 -6970 Jun, Cough R05 and Acute bilateral thoracic back pain M54.6 [facility] [id number] [place] [address] 62786 -4069 15 Jun, 2017 Back pain, unspecified back location, unspecified back pain laterality, unspecified chronicity M54.9 and Left flank pain R10.9 [place] [id number] [place] [address] 28722- 3395 Jun, Other chronic pain G89.29 [place] [id number] [place] [address] 70721- 0949 Jun, Myalgia M79.1 [place] [id number] [place] [address] 34831- 8491 May, Other chronic pain G89.29 [place] [id number] [place] [address] 74590- 9033 May, Myalgia M79.1 and Fatigue due to exposure, subsequent encounter T73.2XXD [facility] [id number] [place] [address] 21089- 3232 05 May, 2017 Fatigue due to exposure, subsequent encounter T73.2XXD [place] [id number] [place] [address] 75579- 9536 Apr, Other chronic pain G89.29 and Myalgia M79.1 [facility] [id number] [place] [address] 35731- 2814 08 Apr, 2017 Closed nondisplaced fracture of phalanx of left great toe with routine healing, unspecified phalanx, subsequent encounter S92.405D ; Dysuria R30.0 ; Localized edema R60.0 and 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.50 [place] [id number] [place] [address] 61787- 8977 Mar, Other chronic pain G89.29 and Myalgia M79.1 [facility] [id number] [place] [address] 72545- 7362 Mar, [facility] [id number] [place] [address] 54387- 5278 Mar, Dysuria R30.0 ; Other chronic pain G89.29 ; Scoliosis, unspecified scoliosis type, unspecified spinal region M41.9 and Chronic urinary tract infection N39.0 [facility] [address] [address]- 4755 Feb, 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.50 and Myalgia M79.1 [facility] [address], [place] [address]- 4436 Feb, [facility] [id number] [place] [address] 80191- 9068 Feb, [facility] [id number] [place] [address] 90057- 1420 Feb, Closed compression fracture of L4 lumbar vertebra with routine healing, subsequent encounter S32.040D ; Closed nondisplaced fracture of phalanx of left great toe with routine healing, unspecified phalanx, subsequent encounter S92.405D and Chronic urinary tract infection N39.0 [facility] [id number] [place] [address] 11586- 6933 Jan, Closed compression fracture of fourth lumbar vertebra, initial encounter S32.040A [facility] [address] [address]- 6734 Jan, Urinary tract infection, site not specified N39.0 [facility] [address], [place] [address]- 3782 Jan, [facility] [address] [address]- 9362 Jan, [facility] [id number] [place] [address] 54581- 9838 Jan, 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.50 and Myalgia M79.1 [facility] [id number] [place] [address] 07304- 6278 Jan, Need for prophylaxis against urinary tract infection Z29.8 and Urinary tract infection, site not specified N39.0 [facility] [address] [address]- 5382 Dec, Urinary tract infection, site not specified N39.0 and Need for prophylaxis against urinary tract infection Z29.8 [facility] [id number] [place] [address] 05489- 3196 Dec, Major depressive disorder, single episode, unspecified F32.9 ; Myalgia M79.1 ; 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.50 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 [facility] [id number] [place] [address] 95863- 9706 Dec, Other chronic pain G89.29 and Dysuria R30.0 [facility] [id number] [place] [address] 90553- 3688 Nov, 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 [facility] [id number] [place] [address] 42545- 7414 Nov, Acute midline low back pain without sciatica M54.5 and retirement 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 Z79.891 [facility] [id number] [place] [address] 50502- 0263 Nov, [facility] [id number] [place] [address] 98888- 2377 October, [facility] [id number] [place] [address] 45287- 5167 October, [facility] [id number] [place] [address] 44883- 7954 Sep, Right leg pain M79.604 [facility] [id number] [place] [address] 64751- 6984 Sep, [facility] [id number] [place] [address] 09020- 8683 Aug, Right leg pain M79.604 [facility] [id number] [place] [address] 98260- 9179 Jul, [facility] [id number] [place] [address] 98435- 4422 Jul, 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.50 and Right leg pain M79.604 [facility] [id number] [place] [address] 48766- 7246 Jun, 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.50 [place] [id number] [place] [address] 71659- 3258 Jun, [place] [address] 45842- 2622 Jun, Right leg pain M79.604 [place] [id number] [place] [address] 31592- 2149 Jun, Right leg pain M79.604 [place] [id number] [place] [address] 07608- 0684 Jun, Abnormal mammogram of left breast R92.8 [place] [id number] [place] [address] 58990- 4070 May, Routine gynecological examination V72.31 ; Breast cancer screening Z12.39 ; Cervical cancer screening Z12.4 ; Colon cancer screening Z12.11 and Calculus of gallbladder without cholecystitis without obstruction K80.20 [place] [id number] [place] [address] 17278- 4973 26 May, 2016 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.50 [place] [id number] [place] [address] 00193- 2519 Apr, 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.50 [place] [id number] [place] [address] 86530- 8810 17 Apr, 2016 Screening, lipid Z13.220 [place] [id number] [place] [address] 59232- 9081 14 Apr, 2016 Other chronic pain G89.29 ; Scoliosis, unspecified scoliosis type, unspecified spinal region M41.9 ; Right leg pain M79.604 ; Major depressive disorder, single episode, unspecified F32.9 ; Fatigue due to exposure, subsequent encounter T73.2XXD ; Dysthymia F34.1 and Screening, lipid Z13.220 [facility] [address] 04527- 6668 Apr, 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.50 [place] [address] 03396- 1386 Mar, Dysthymia 300.4 [facility] [address] 28546- 5957 Mar, 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.50 [facility] [address] 98823- 0185 Feb, 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.50 [place] [address] 09113- 9245 Jan, 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.50 [place] [address] 69233- 1899 Dec, 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 [place] [address] 81039- 3030 Dec, [place] [address] 77303- 8025 Dec, Right leg pain M79.604 and Scoliosis, unspecified scoliosis type, unspecified spinal region M41.9 [place] [id number] [place] [address] 65926- 4343 Dec, Right leg pain M79.604 and Scoliosis, unspecified scoliosis type, unspecified spinal region M41.9 [place] [address] 35474- 9382 Dec, 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.50 [place] [address] 71759- 6685 Nov, 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.50 [facility] [address] [place] [address]- 1345 October, 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.50 and Scoliosis, unspecified scoliosis type , unspecified spinal region M41.9 [facility] [id number] [place] [address] 44191- 1634 Sep, [facility] [address] 51356- 9910 Aug, [facility] [address] 12785- 2114 Aug, 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.50 ; Myalgia M79.1 and Scoliosis M41.9 [place] [address] 43774- 4516 Jul, Other chronic pain G89.29 [place] [address] 33112- 8538 Jul, Other chronic pain G89.29 [place] [address] 85734- 0553 Jul, Impingement syndrome of both shoulders M75.41 [place] [address] 33152- 8551 Jun, [facility] [id number] [place] [address] 03788- 3408 Jun, [facility] [address] 33042- 0759 Jun, Scoliosis (and kyphoscoliosis), idiopathic M41.20 and Other chronic pain G89.29 [facility] [id number] [place] [address] 22056 -5210 Jun, Upper respiratory tract infection, unspecified type 465.9 and Rhinorrhea J34.89 [facility] [id number] [place] [address] 78683- 0793 May, [facility] [address] 89069- 1585 May, [facility] [id number] [place] [address] 93300- 9686 Apr, Dysuria R30.0 ; Urinary tract infection, site not specified N39.0 and Hematuria, unspecified R31.9 [facility] [id number] [place] [address] 96646- 7127 Apr, [facility] [id number] [place] [address] 538632- 7498 Mar, Family history of early CAD Z82.49 [place] [id number] [place] [address] 57191- 7003 Mar, Other chronic pain G89.29 [place] [id number] [place] [address] 64852- 6711 Mar, Impingement syndrome of both shoulders M75.41 [place] [id number] [place] [address] 59852- 0105 Mar, Other chronic pain G89.29 ; Dysthymia F34.1 ; Family history of early CAD Z82.49 ; Dysuria R30.0 and Other specified disorders of Eustachian tube, right ear H69.81 [place] [address] [place] [address] 18599- 1378 Mar, [facility] [id number] [place] [address] 10248- 1325 Feb, [facility] [id number] [place] [address] 76905- 8585 Jan, [facility] [id number] [place] [address] 89333- 1205 Jan, Eustachian tube dysfunction 381.81 and Dysthymia 300.4 [facility] [id number] [place] [address] 95876- 1088 Dec, [facility] [address] [place] [address]- 5809 Nov, Impingement syndrome of both shoulders 726.2 [facility] [address] [address]- 6533 Nov, [facility] [id number] [address]- 9959 Nov, [facility] [id number] [place] [address] 18188- 4423 Nov, Urgency of urination 788.63 [facility] [address] [facility] [id number] [place] [address]- 4773 October, [facility] [id number] [place] [address] 48976- 6265 October, [facility] [id number] [address]- 8020 Sep, [facility] [id number] [address]- 6703 Sep, [facility] [address] [address]- 5577 Aug, [facility] [address] [address]- 3402 Aug, [facility] [address], [place] [address]- 2879 Aug, [facility] [id number] [address]- 2158 Aug, [facility] [id number] [place] [address]- 0477 Aug, [facility] [id number] 1950 Aug, [facility] [place] [facility] [id number] 9501 Aug, [facility] [id number] [place] [address]- 0749 Jul, 2014 [facility] [place] [facility] [address] [id number] [place] [address]- 3436 Jul, 2014 [facility] [place] [facility] [address] [id number] [place] [address]- 3606 Jul, 2014 [facility] [place] [facility] [address] [id number] [place] [address]- 6526 Jul, 2014 [facility] [place] [facility] [address] [id number] [place] [address]- 3927 Jul, 2014 [facility] [place] [facility] [address] [id number] [place] [address], [place] [address]- 3488 Jul, 2014 [facility] [place] [facility] [address] [facility] [id number] [place] 2982 Jun, [facility] [place] [facility] [address] [facility] [id number] [place] [address]- 9256 Jun, [facility] [place] [facility] [address] [facility] [id number] [place] [address]- 2912 May, [facility] [place] [facility] [address] [facility] [id number] [place] [address]- 3388 May, [facility] [place] [facility] [address] [facility] [id number] [place] [address]- 7532 May, [facility] [place] [facility] [address] [facility] [id number] [place] [address]- 2541 May, [facility] [place] [facility] [address] [id number] [place] [address]- 1214 Mar, [facility] [place] [facility] [address] [id number] [place] [address]- 1638 Mar, [facility] [place] [facility] [address] [facility] [id number] [place] [address]- 6862 Feb, [facility] [place] [facility] [address] [facility] [id number] [place] 5260 Feb, [facility] [place] [facility] [address] [id number] [place] [address]- 9741 Jan, [facility] [place] [facility] [address] [id number] [place] [address]- 3272 Jan, [facility] [place] [facility] [address] [id number] [place] [address]- 3371 Jan, [facility] [place] [facility] [address] [id number] [place] [address]- 9002 Jan, [facility] [place] [facility] [address] [id number] [place] [address]- 9037 Jan, [facility] [place] [facility] [address] [id number] [place] [address]- 8166 Nov, [facility] [place] [facility] [address] [id number] [place] [address]- 7924 Nov, [facility] [place] [facility] [address] [id number] [place] [address]- 5304 October, [facility] [place] [facility] [address] [id number] [place] [address]- 6912 October, [facility] [place] [facility] [address] [id number] [place] [address]- 0029 October, [facility] [place] [facility] [address] [id number] [place] [address]- 3432 October, [facility] [place] [facility] [address] [id number] [place] [address]- 3109 Sep, [facility] [place] [facility] [address] [id number] [place] [address]- 8847 Aug, [facility] [place] [facility] [address] [id number] [place] 5629 Aug, [facility] [place] [facility] [address] [id number] [place] [address]- 2285 Aug, [facility] [place] [facility] [address] [id number], [place] [address]- 4443 Aug, [facility] [address] [id number] [place] [address]- 4002 Jul, [facility] [place] [facility] [address] [id number] [place] [address]- 3282 Jul, [facility] [place] [facility] [address] [id number] [place] [address]- 5679 Jun, [facility] [place] [facility] [address] [id number] [place] [address]- 0916 Jun, [facility] [place] [facility] [address] [id number] [place] [address]- 3375 Jun, [facility] [place] [facility] [address] [id number] [place] [address] Jun, [facility] [place] [facility] [address] [id number] [place] [address] Jun, [facility] [place] [facility] [address] [id number] [place] [address] Jun, [facility] [place] [facility] [address] [id number] [place] [address] Mar, [facility] [place] [facility] [address] [id number] [place] [address] Mar, [facility] [place] [facility] [address] [id number] [place] [address] Feb, [facility] [place] [facility] [address] [id number] [place] [address] 11 Feb, 2013 [facility] [place] [facility] [address] [id number] [place] [address] 09 Feb, 2013 [facility] [place] [facility] [address] [id number] [place] [address] Jan, [facility] [place] [facility] [address] [id number] [address] 15 Jan, 2013 [facility] [place] [facility] [address] [id number] [place] [address] Dec, [facility] [place] [facility] [address] [id number] [place] [address] Nov, [facility] [place] [facility] [address] [id number] [place] [address] Sep, [facility] [place] [facility] [address] [id number] [place] [address] Aug, [facility] [place] [facility] [address] [id number] [place] [address] Aug, [facility] [place] [facility] [address] [id number] [place] [address] Aug, [facility] [place] [facility] [address] [id number] [place] [address] Jul, [facility] [place] [facility] [address] [id number] [place] [address] Jul, [facility] [place] [facility] [address] [id number] [place] [address] Jul, [facility] [place] [facility] [address] [id number] [place] [address] Jul, [facility] [place] [facility] [address] [id number] [place] [address] Jul, [facility] [place] [facility] [address] [id number] [place] [address] Apr, [facility] [place] [facility] [address] [id number] [place] [address] Apr, [facility] [place] [facility] [address] [id number] [place] Jan, [facility] [place] [facility] [address] [id number] [place] [address] Jan, [facility] [place] [facility] [address] [id number] [place] [address] Dec, [facility] [address] [id number] [place] [address] Dec, [facility] [place] [facility] [address] [id number] [place] [address] Dec, [facility] [place] [facility] [address] [id number] [place] [address] Dec, [facility] [place] [facility] [address] [id number] [place] [address] Dec, [facility] [place] [facility] [address] [id number] [place] [address] October, [facility] [place] [facility] [address] [id number] [place] [address] Aug, [facility] [address] [facility] [id number] [place] [address] Aug, [facility] [place] [facility] [address] [facility] [id number] [place] [address] Aug, [facility] [address] [facility] [id number] [place] [address] Jul, [facility] [place] [facility] [address] [facility] [id number] [place] [address] May, [facility] [place] [facility] [address] [id number] [place] [address] Apr, [facility] [place] [facility] [address] [id number] [place] [address] May, [facility] [place] [facility] [address] [id number] [place] [address] May, [facility] [place] [facility] [address] [facility] [id number] [place] [address] May, [facility] [place] [facility] [address] [facility] [id number] [place] [address] 16 Mar, 2010 [facility] [place] [facility] [address] [facility] [id number] [place] [address] Mar, [facility] [address] [facility] [id number] [place] [address] Aug, IMMUNIZATIONS No Known Immunizations SOCIAL HISTORY Never Assessed REASON FOR VISIT Rx for UTI PLAN OF CARE VITAL SIGNS MEDICATIONS Medication Instructions Dosage Frequency Start Date End Date Duration Status Ampicillin 500 mg Orally 3 times a day 1 capsule 8h Jan, Jan, 07 days Active RESULTS No Results PROCEDURES No Known procedures INSTRUCTIONS MEDICATIONS ADMINISTERED No Known Medications MEDICAL (GENERAL) HISTORY Type Description Date Medical History chronic pain Medical History arthritis Surgical History Nephrectomy - age 3 Surgical History Appendectomy Hospitalization History surgery Hospitalization History childbirth x 3
--- OUTSIDE RECORDS SUMMARY | 2018-06-07 13:23 | XMS REPORT ---
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 Name Role Phone OSCAR REED Unavailable PROBLEMS Type Condition ICD9-CM Code [id number] Code Onset Dates Condition Status SNOMED Code Problem Scoliosis (and kyphoscoliosis), idiopathic M41.20 Active 17091579 Problem Myalgia M79.1 Active 74328402 Problem Other chronic pain G89.29 Active 64723479 Problem Urinary urgency R39.15 Active 64433286 Problem Dysthymia F34.1 Active 97100196 Problem Varicose veins I86.8 Active 431638423 Problem Need for prophylaxis against urinary tract infection Z29.8 Active 526696982 Problem Abnormal mammogram of left breast R92.8 Active 202273704 Problem Scoliosis, unspecified scoliosis type, unspecified spinal region M41.9 Active 287298493 Problem 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.50 Active 33358757 Problem Calculus of gallbladder without cholecystitis without obstruction K80.20 Active 310565884 Problem Major depressive disorder, single episode, unspecified F32.9 Active 95071879 ALLERGIES Substance Reaction Event Type Date Status Sulfamethoxazole-Trimethoprim Unknown Drug Allergy Dec, Active Aspirin Unknown Drug Allergy Dec, Active ENCOUNTERS Encounter Location Date Diagnosis [facility] [address] [facility] [id number] [address] Feb, [facility] [id number] [address] 1266 Feb, [facility] [id number] [address] 58[address] Jan, [facility] [address] [id number] [address] Jan, Right hip pain M25.551 and Opioid use disorder, mild, in controlled environment F11.10 [facility] [id number] [place] [address] 23424- 6556 Jan, Other chronic pain G89.29 and Myalgia M79.1 [facility] [id number] [place] [address] 38926- 5853 16 Jan, 2018 Urinary tract infection without hematuria, site unspecified N39.0 [facility] [address] 61942- 6992 13 Jan, 2018 Therapeutic drug monitoring Z51.81 ; Scoliosis, unspecified scoliosis type, unspecified spinal region M41.9 ; Chronic prescription opiate use Z79.891 ; Dysthymia F34.1 ; Alcohol use Z78.9 and Frequent urinary tract infections N39.0 [facility] [id number] [place] [address] 10323- 3382 Dec, Other chronic pain G89.29 and Myalgia M79.1 [facility] [id number] [place] [address] 55757- 2779 Dec, Impacted cerumen, right ear H61.21 and Dysfunction of right eustachian tube H69.81 [facility] [id number] [place] [address] 72086- 3644 Nov, Myalgia M79.1 and Other chronic pain G89.29 [facility] [id number] [place] [address] 61792- 6051 October, Other chronic pain G89.29 and Myalgia M79.1 [facility] [id number] [place] [address] 84087- 2286 Sep, Other chronic pain G89.29 [facility] [id number] [place] [address] 54197- 4048 Aug, Other chronic pain G89.29 [facility] [id number] [place] [address] 45650- 6438 Aug, Scoliosis (and kyphoscoliosis), idiopathic M41.20 [facility] [id number] [address] 8768 Aug, [facility] [id number] [place] [address] 21905- 4155 12 Aug, 2017 Dysuria R30.0 ; Scoliosis, unspecified scoliosis type, unspecified spinal region M41.9 ; Encounter for therapeutic drug level monitoring Z51.81 and Alcohol use Z78.9 [facility] [id number] [place] [address] 36869- 0250 07 Aug, 2017 Other chronic pain G89.29 [facility] [id number] [place] [address] 76782- 1206 23 Jul, 2017 Chronic urinary tract infection N39.0 [facility] [id number] [place] [address] 09187- 7960 07 Jul, 2017 Other chronic pain G89.29 [facility] [id number] [place] [address] 13200- 9626 Jun, [facility] [id number] [place] [address] 43757- 6611 Jun, [facility] [id number] [place] [address] 45362- 6322 Jun, Acute left-sided thoracic back pain M54.6 [facility] [id number] [place] [address] 51961 -4396 18 Jun, 2017 Cough R05 and Acute bilateral thoracic back pain M54.6 [facility] [id number] [place] [address] 35628 -6718 15 Jun, 2017 Back pain, unspecified back location, unspecified back pain laterality, unspecified chronicity M54.9 and Left flank pain R10.9 [facility] [id number] [place] [address] 45778- 1615 Jun, Other chronic pain G89.29 [facility] [id number] [place] [address] 09670- 6606 Jun, Myalgia M79.1 [facility] [id number] [place] [address] 82922- 8234 May, Other chronic pain G89.29 [facility] [id number] [place] [address] 02609- 9114 May, Myalgia M79.1 and Fatigue due to exposure, subsequent encounter T73.2XXD [facility] [id number] [place] [address] 66103- 6470 05 May, 2017 Fatigue due to exposure, subsequent encounter T73.2XXD [facility] [id number] [place] [address] 83182- 7866 Apr, Other chronic pain G89.29 and Myalgia M79.1 [facility] [id number] [place] [address] 10401- 3600 Apr, Closed nondisplaced fracture of phalanx of left great toe with routine healing, unspecified phalanx, subsequent encounter S92.405D ; Dysuria R30.0 ; Localized edema R60.0 and 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.50 [facility] [address] [place] [address] 24135- 8750 Mar, Other chronic pain G89.29 and Myalgia M79.1 [facility] [id number] [place] [address] 74267- 3108 Mar, [place] [id number] [place] [address] 13387- 6260 Mar, Dysuria R30.0 ; Other chronic pain G89.29 ; Scoliosis, unspecified scoliosis type, unspecified spinal region M41.9 and Chronic urinary tract infection N39.0 [facility] [address] [place] [address] 97147- 1927 Feb, 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.50 and Myalgia M79.1 [facility] [address] [address] 1713 Feb, [facility] [address] [address] 9405 Feb, [facility] [address] [address] 4632 Feb, Closed compression fracture of L4 lumbar vertebra with routine healing, subsequent encounter S32.040D ; Closed nondisplaced fracture of phalanx of left great toe with routine healing, unspecified phalanx, subsequent encounter S92.405D and Chronic urinary tract infection N39.0 [facility] [address] [place] [address] 02449- 3467 Jan, Closed compression fracture of fourth lumbar vertebra, initial encounter S32.040A [facility] [address] [address]- 8678 Jan, Urinary tract infection, site not specified N39.0 [facility] [address] [address]- 5349 Jan, [facility] [address] [address]- 0834 Jan, [facility] [address] [address] 1890 Jan, 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.50 and Myalgia M79.1 [facility] [address] [address]- 9595 Jan, Need for prophylaxis against urinary tract infection Z29.8 and Urinary tract infection, site not specified N39.0 [facility] [id number] [address]- 9607 Dec, Urinary tract infection, site not specified N39.0 and Need for prophylaxis against urinary tract infection Z29.8 [facility] [id number] [address]- 6452 Dec, Major depressive disorder, single episode, unspecified F32.9 ; Myalgia M79.1 ; 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.50 and FCI 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 Z79.891 [facility] [id number] [place] [address] 07307- 7385 Dec, Other chronic pain G89.29 and Dysuria R30.0 [facility] [id number] [place] [address] 77532- 3802 Nov, [facility] 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 Z79.891 [facility] [id number] [place] [address] 07045- 7037 Nov, Acute midline low back pain without sciatica M54.5 and FCI 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 Z79.891 [facility] [id number] [place] [address] 33039- 6048 Nov, [facility] [address] 37970- 0549 October, [facility] [address] 36795- 4367 October, [facility] [address] 20312- 5610 Sep, Right leg pain M79.604 [facility] [id number] [place] [address] 82775- 0255 Sep, [facility] [id number] [place] [address] 13890- 4868 Aug, Right leg pain M79.604 [facility] [id number] [place] [address] 12889- 1186 Jul, [facility] [address] 47656- 9355 Jul, 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.50 and Right leg pain M79.604 [facility] [id number] [place] [address] 53954- 0861 Jun, 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.50 [facility] [id number] [place] [address] 44779- 4287 Jun, [facility] [id number] [place] [address] 89264- 7344 Jun, Right leg pain M79.604 [facility] [place] [id number] [place] [address] 65259- 1571 Jun, Right leg pain M79.604 [facility] [place] [id number] [place] [address] 95123- 8322 Jun, Abnormal mammogram of left breast R92.[address] 95047- 8993 May, Routine gynecological examination V72.31 ; Breast cancer screening Z12.39 ; Cervical cancer screening Z12.4 ; Colon cancer screening Z12.11 and Calculus of gallbladder without cholecystitis without obstruction K80.20 [place] [id number] [place] [address] 75573- 9584 May, 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.50 [place] [id number] [place] [address] 30778- 4365 Apr, 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.50 [place] [id number] [place] [address] 25138- 6746 Apr, Screening, lipid Z13.220 [id number] [place] [address] 47926- 4119 Apr, Other chronic pain G89.29 ; Scoliosis, unspecified scoliosis type, unspecified spinal region M41.9 ; Right leg pain M79.604 ; Major depressive disorder, single episode, unspecified F32.9 ; Fatigue due to exposure, subsequent encounter T73.2XXD ; Dysthymia F34.1 and Screening, lipid Z13.220 [id number] [place] [address] 69014- 0013 Apr, 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.50 [facility] [address] [address]- 3440 Mar, Dysthymia 300.4 [facility] [id number] [place] [address] 40803- 2884 Mar, 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.50 [facility] [id number] [place] [address] 38083- 6823 Feb, 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.50 [facility] [id number] [place] [address] 58229- 8717 Jan, 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.50 [facility] [id number] [place] [address] 94289- 4080 Dec, 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 [facility] [id number] [place] [address] 20119- 4278 Dec, [facility] [id number] [place] [address] 64020- 2403 Dec, Right leg pain M79.604 and Scoliosis, unspecified scoliosis type, unspecified spinal region M41.9 [facility] [id number] [place] [address] 71395- 1745 Dec, Right leg pain M79.604 and Scoliosis, unspecified scoliosis type, unspecified spinal region M41.9 [facility] [id number] [place] [address] 01249- 2811 Dec, 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.50 [facility] [id number] [place] [address] 52469- 6376 Nov, 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.50 [facility] [id number] [place] [address] 19946- 3070 October, 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.50 and Scoliosis, unspecified scoliosis type , unspecified spinal region M41.9 [facility] [id number] [place] [address] 91256- 7013 Sep, [facility] [id number] [place] [address] 62385- 5901 Aug, [place] [address] 95260- 8519 Aug, 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.50 ; Myalgia M79.1 and Scoliosis M41.9 [place] [address] 27280- 0441 Jul, Other chronic pain G89.29 [place] [id number] [place] [address] 02575- 8155 Jul, Other chronic pain G89.29 [place] [address] 76251- 1542 Jul, Impingement syndrome of both shoulders M75.41 [facility] [id number] [place] [address] 90969- 8784 Jun, [place] [place] [id number] [place] [address] 43509- 9568 Jun, [place] [address] 73276- 1097 Jun, Scoliosis (and kyphoscoliosis), idiopathic M41.20 and Other chronic pain G89.29 [facility] [id number] [place] [address] 89124 -3979 Jun, Upper respiratory tract infection, unspecified type 465.9 and Rhinorrhea J34.89 [facility] [place] [id number] [place] [address] 93902- 1336 May, [facility] [facility] [address] 37086- 9615 May, [facility] [id number] [place] [address] 82516- 7462 Apr, Dysuria R30.0 ; Urinary tract infection, site not specified N39.0 and Hematuria, unspecified R31.9 [facility] [id number] [place] [address] 69057- 4595 Apr, [facility] [id number] [place] [address] 25221- 4447 Mar, Family history of early CAD Z82.49 [facility] [facility] [address] 14821- 3592 Mar, Other chronic pain G89.29 [facility] [place] [id number] [place] [address] 80566- 6312 Mar, Impingement syndrome of both shoulders M75.41 [facility] [id number] [place] [address] 52088- 3873 Mar, Other chronic pain G89.29 ; Dysthymia F34.1 ; Family history of early CAD Z82.49 ; Dysuria R30.0 and Other specified disorders of Eustachian tube, right ear H69.81 [facility] [id number] [place] [address] 42918- 1962 Mar, [place] [id number] [place] [address] 71499- 0541 Feb, [place] [id number] [place] [address] 60402- 9931 Jan, [facility] [id number] [place] [address] 76738- 4252 Jan, Eustachian tube dysfunction 381.81 and Dysthymia 300.4 [facility] [id number] [place] [address] 73495- 7664 Dec, [facility] [id number] [place] [address] 53111- 7522 Nov, Impingement syndrome of both shoulders 726.2 [place] [address] 29833- 3058 Nov, [facility] [address] [id number] [place] [address]- 6709 Nov, [facility] [address] [id number] [place] [address]- 9737 Nov, Urgency of urination 788.63 [facility] [place] [facility] [address] [id number] [place] [address]- 4536 October, [facility] [place] [facility] [address] [id number] [place] [address]- 3416 October, [facility] [place] [facility] [address] [id number] [place] [address]- 6495 Sep, [facility] [place] [facility] [address] [id number] [place] [address]- 5652 Sep, [facility] [place] [facility] [address] [id number] [place] [address]- 4270 Aug, [facility] [place] [facility] [address] [id number] [place] [address]- 2463 Aug, [facility] [place] [facility] [address] [id number] [place] [address]- 4730 Aug, [facility] [place] [facility] [address] [id number] [place] [address]- 3213 Aug, [facility] [place] [facility] [address] [id number] [place] [address]- 3171 Aug, [facility] [place] [facility] [address] [id number] [place] [address]- 9185 Aug, [facility] [place] [facility] [address] [id number] [place] [address]- 9913 Aug, [facility] [place] [facility] [address] [facility] [id number] [place] [address]- 6238 Jul, [facility] [place] [facility] [address] [id number] [place] [address]- 3726 Jul, [facility] [place] [facility] [address] [id number] [place] [address]- 2147 Jul, 2014 [facility] [place] [facility] [address] [id number] [place] [address]- 6376 Jul, 2014 [facility] [place] [facility] [address] [id number] [place] [address]- 7536 Jul, 2014 [facility] [place] [facility] [address] [id number] [place] [address]- 4106 Jul, 2014 [facility] [place] [facility] [address] [id number] [place] [address]- 7178 Jun, [facility] [place] [facility] [address] [id number] [place] [address]- 8310 Jun, [facility] [place] [facility] [address] [id number] [place] [address]- 2106 May, [facility] [place] [facility] [address] [id number] [place] [address]- 0806 May, [facility] [place] [facility] [address] [id number] [place] [address]- 3789 May, [facility] [place] [facility] [address] [facility] [id number] [place] [address]- 1782 May, [facility] [place] [facility] [address] [facility] [id number] [place] [address]- 1967 Mar, [facility] [place] [facility] [address] [id number] [place] [address]- 5062 Mar, [facility] [place] [facility] [address] [id number] [place] [address]- 0589 Feb, [facility] [place] [facility] [address] [id number] [place] [address]- 6450 Feb, [facility] [place] [facility] [address] [id number] [place] [address]- 2337 Jan, [facility] [place] [facility] [address] [id number] [place] [address]- 0223 Jan, [facility] [place] [facility] [address] [id number] [place] [address]- 3727 Jan, [facility] [place] [facility] [address] [id number] [place] [address]- 5801 Jan, [facility] [place] [facility] [address] [id number] [place] [address]- 9844 Jan, [facility] [place] [facility] [address] [id number] [place] [address]- 4661 Nov, [facility] [place] [facility] [address] [id number] [place] [address]- 5589 Nov, [facility] [place] [facility] [address] [id number] [place] [address]- 5990 October, [facility] [place] [facility] [address] [id number] [place] [address]- 7348 October, [facility] [place] [facility] [address] [id number] [place] [address]- 8242 October, [facility] [place] [facility] [address] [id number] [place] [address]- 6619 October, [facility] [place] [facility] [address] [id number] [place] [address]- 7612 Sep, [facility] [place] [facility] [address] [id number] [place] [address]- 2969 Aug, [facility] [place] [facility] [address] [id number] [place] [address]- 7199 Aug, [facility] [place] [facility] [address] [id number] [place] [address]- 7513 Aug, [facility] [place] [facility] [address] [id number] [place] [address]- 5508 Aug, [facility] [place] [facility] [address] [id number] [place] [address]- 5406 Jul, [facility] [place] [facility] [address] [id number] [place] [address]- 3388 Jul, [facility] [address] [id number] [place] [address]- 8614 Jun, [facility] [place] [facility] [address] [id number] [place] [address] Jun, [facility] [address] [id number] [place] [address] Jun, [facility] [place] [facility] [address] [id number] [place] [address] Jun, [facility] [address] [id number] [place] [address] Jun, [facility] [address] [id number] [place] [address] Jun, [facility] [address] [id number] [place] [address] Mar, [facility] [address] [id number] [place] [address] Mar, [facility] [address] [id number] [place] [address] Feb, [facility] [address] [id number] [place] [address] Feb, [facility] [place] [facility] [address] [id number] [place] [address] Feb, [facility] [place] [facility] [address] [id number] [place] [address] Jan, [facility] [place] [facility] [address] [id number] [place] [address] 15 Jan, 2013 [facility] [place] [facility] [address] [id number] [place] [address] Dec, [facility] [place] [facility] [address] [id number] [place] [address] Nov, [facility] [address] [id number] [place] [address] Sep, [facility] [place] [facility] [address] [id number] [place] [address] Aug, [facility] [place] [facility] [address] [id number] [place] [address] Aug, [facility] [place] [facility] [address] [id number] [place] [address] Aug, [facility] [address] [id number] [place] [address] Jul, [facility] [place] [facility] [address] [id number] [place] [address] Jul, [facility] [address] [id number] [place] [address] Jul, [facility] [address] [id number] [place] [address] Jul, [facility] [address] [id number] [place] [address] Jul, [facility] [address] [id number] [place] [address] Apr, [facility] [address] [id number] [place] [address] Apr, [facility] [place] [facility] [address] [id number] [place] [address] Jan, [facility] [place] [facility] [address] [id number] [place] [address] Jan, [facility] [place] [facility] [address] [id number] [place] [address] Dec, [facility] [place] [facility] [address] [id number] [place] [address] Dec, [facility] [facility] [address] [facility] [id number] [place] [address] Dec[facility] [address] [id number] [place] [address] [address] Dec, [facility] [address] [id number] [place] [address] Dec, [facility] [address] [facility] [id number] [place] [address] [address], [facility] [address] [id number] [place] [address] Aug, [facility] [facility] [address] [id number] [place] [address] Aug, [facility] [address] [facility] [id number] [place] [address] Aug, [facility] [address] [facility] [id number] [place] [address] Jul, [facility] [address] [facility] [id number] [place] [address] May, [facility] [address] [facility] [id number] [place] [address] Apr, [facility] [address] [facility] [id number] [place] [address] May, [facility] [address] [facility] [id number] [place] [address] May, [facility] [address] [facility] [id number] [place] [address] May, [facility] [address] [facility] [id number] [place] [address] Mar, [facility] [address] [facility] [id number] [place] [address] Mar, [facility] [address] [facility] [id number] [place] [address] Aug, IMMUNIZATIONS No Known Immunizations SOCIAL HISTORY Never Assessed REASON FOR VISIT right Earache-[place] ANDREEA PLAN OF CARE Activity Details Follow Up prn Reason:after using wax softening drops VITAL SIGNS Height 66.5 in 2018-01-03 Weight 172.6 lbs 2018-01-03 Temperature 97.9 degrees Fahrenheit 2018-01-03 Heart Rate 78 bpm 2018-01-03 Respiratory Rate 18 2018-01-03 BMI 27.44 kg/m2 2018-01-03 Blood pressure systolic 116 mmHg 2018-01-03 Blood pressure diastolic 74 mmHg 2018-01-03 MEDICATIONS Medication Instructions Dosage Frequency Start Date End Date Duration Status Promethazine-Codeine 6.25-10 MG/5ML Orally every 6 hrs 5 ml as needed 6h Jun, Not-Taking Fluoxetine HCl 40 mg Orally Once a day 1 capsule 24h Dec, 30 days Active Vitamin D3 44071 UNIT Orally once weekly 1 capsule May, Active Percocet 10-325 MG Orally 5 times per day 1 tablet as needed Nov, 28 days Active Lyrica 150 MG Orally 3 times a day 1 capsule 8h Apr, 28 days Active Flonase Allergy Relief 50 MCG/ACT Nasally Once a day 1 spray in each nostril 24h Dec, 30 day(s) Active Premarin 0.625 MG/GM Vaginal 3 times a week as directed Mar, Not-Taking Macrobid 100 MG Orally Once a day 1 capsule with food 24h Dec, 30 days Not-Taking RESULTS No Results PROCEDURES No Known procedures INSTRUCTIONS MEDICATIONS ADMINISTERED No Known Medications MEDICAL (GENERAL) HISTORY Type Description Date Medical History chronic pain Medical History arthritis Surgical History Nephrectomy - age 3 Surgical History Appendectomy Hospitalization History surgery Hospitalization History childbirth x 3
--- OUTSIDE RECORDS SUMMARY | 2018-06-07 13:23 | XMS REPORT ---
Author Author CHUY NGUYEN Organization [facility] Address [address] [place] [address] Care Team Providers Care Fuel Agent Name Role Phone CHUY NGUYEN Unavailable PROBLEMS Type Condition ICD9-CM Code [id number] Code Onset Dates Condition Status SNOMED Code Problem Scoliosis (and kyphoscoliosis), idiopathic M41.20 Active 57604693 Problem Myalgia M79.1 Active 24634644 Problem Other chronic pain G89.29 Active 85592624 Problem Urinary urgency R39.15 Active 39716602 Problem Dysthymia F34.1 Active 63220896 Problem Varicose veins I86.8 Active 444902487 Problem Need for prophylaxis against urinary tract infection Z29.8 Active 111969435 Problem Abnormal mammogram of left breast R92.8 Active 546785925 Problem Scoliosis, unspecified scoliosis type, unspecified spinal region M41.9 Active 037044589 Problem 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.50 Active 58989715 Problem Calculus of gallbladder without cholecystitis without obstruction K80.20 Active 723496903 Problem Major depressive disorder, single episode, unspecified F32.9 Active 70278816 ALLERGIES No Information ENCOUNTERS Encounter Location Date Diagnosis [facility] [id number] [address] 16 Jan, 2018 Urinary tract infection without hematuria, site unspecified N39.0 [facility] [id number] [address] 13 Jan, 2018 Therapeutic drug monitoring Z51.81 ; Scoliosis, unspecified scoliosis type, unspecified spinal region M41.9 ; Chronic prescription opiate use Z79.891 ; Dysthymia F34.1 ; Alcohol use Z78.9 and Frequent urinary tract infections N39.0 [facility] [id number], [place] [address] Dec, Other chronic pain G89.29 and Myalgia M79.1 [facility] [id number] [place] [address] 94991- 6964 Dec, Impacted cerumen, right ear H61.21 and Dysfunction of right eustachian tube H69.81 [facility] [id number] [place] [address] 31958- 7259 Nov, Myalgia M79.1 and Other chronic pain G89.29 [facility] [id number] [place] [address] 40940- 8572 October, Other chronic pain G89.29 and Myalgia M79.1 [facility] [address] 18984- 5199 Sep, Other chronic pain G89.29 [facility] [address] 23191- 2989 Aug, Other chronic pain G89.29 [facility] [id number] [place] [address] 78762- 7710 Aug, Scoliosis (and kyphoscoliosis), idiopathic M41.20 [facility] [id number] [place] [address] 78629- 2884 Aug, [facility] [id number] [place] [address] 97457- 9610 Aug, Dysuria R30.0 ; Scoliosis, unspecified scoliosis type, unspecified spinal region M41.9 ; Encounter for therapeutic drug level monitoring Z51.81 and Alcohol use Z78.9 [facility] [id number] [place] [address] 78238- 7355 Aug, Other chronic pain G89.29 [facility] [id number] [place] [address] 46608- 7037 Jul, Chronic urinary tract infection N39.0 [facility] [address] 35493- 0426 07 Jul, 2017 Other chronic pain G89.29 [facility] [id number] [place] [address] 99073- 5115 Jun, [facility] [id number] [place] [address] 42637- 8505 Jun, [facility] [id number] [place] [address] 12018- 2090 Jun, Acute left-sided thoracic back pain M54.6 [facility] [id number] [place] [address] 33395 -0912 Jun, Cough R05 and Acute bilateral thoracic back pain M54.6 [facility] [id number] [place] [address] 81825 -3111 15 Jun, 2017 Back pain, unspecified back location, unspecified back pain laterality, unspecified chronicity M54.9 and Left flank pain R10.9 [facility] [id number] [place] [address] 23080- 2249 Jun, Other chronic pain G89.29 [facility] [id number] [place] [address] 26907- 4568 Jun, Myalgia M79.1 [facility] [id number] [place] [address] 33119- 9980 13 May, 2017 Other chronic pain G89.29 [facility] [id number] [place] [address] 21249- 1383 07 May, 2017 Myalgia M79.1 and Fatigue due to exposure, subsequent encounter T73.2XXD [facility] [id number] [place] [address] 33107- 0298 05 May, 2017 Fatigue due to exposure, subsequent encounter T73.2XXD [facility] [id number] [place] [address] 50231- 1593 15 Apr, 2017 Other chronic pain G89.29 and Myalgia M79.1 [facility] [id number] [place] [address] 38379- 3541 Apr, Closed nondisplaced fracture of phalanx of left great toe with routine healing, unspecified phalanx, subsequent encounter S92.405D ; Dysuria R30.0 ; Localized edema R60.0 and 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.50 [facility] [id number] [place] [address] 86557- 6780 18 Mar, 2017 Other chronic pain G89.29 and Myalgia M79.1 [facility] [id number] [place] [address] 33492- 2726 Mar, [facility] [address] 98775- 9845 Mar, Dysuria R30.0 ; Other chronic pain G89.29 ; Scoliosis, unspecified scoliosis type, unspecified spinal region M41.9 and Chronic urinary tract infection N39.0 [facility] [id number] [place] [address] 75694- 2505 20 Feb, 2017 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.50 and Myalgia M79.1 [facility] [address] 32090- 3906 Feb, [facility] [id number] [place] [address] 75258- 7735 Feb, [facility] [id number] [place] [address] 63621- 9837 Feb, Closed compression fracture of L4 lumbar vertebra with routine healing, subsequent encounter S32.040D ; Closed nondisplaced fracture of phalanx of left great toe with routine healing, unspecified phalanx, subsequent encounter S92.405D and Chronic urinary tract infection N39.0 [facility] [id number] [place] [address] 02760- 3757 Jan, Closed compression fracture of fourth lumbar vertebra, initial encounter S32.040A [facility] [address] 60802- 7295 Jan, Urinary tract infection, site not specified N39.0 [facility] [address], [place] [address] 37[address] Jan, [facility] [id number] [place] [address] 55249- 0625 Jan, [facility] [id number] [place] [address] 29431- 8299 Jan, 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.50 and Myalgia M79.1 [facility] [address] [place] [address] 20600- 1511 Jan, Need for prophylaxis against urinary tract infection Z29.8 and Urinary tract infection, site not specified N39.0 [facility] [address] [place] [address] 21840- 8596 Dec, Urinary tract infection, site not specified N39.0 and Need for prophylaxis against urinary tract infection Z29.8 [facility] [address] [place] [address] 62693- 5263 Dec, Major depressive disorder, single episode, unspecified F32.9 ; Myalgia M79.1 ; 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.50 and 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 [place], [place] [address]- 0859 Dec, Other chronic pain G89.29 and Dysuria R30.0 [facility] [address] [place] [address] 39371- 9491 Nov, 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 [facility] [id number] [place] [address] 44991- 9065 Nov, Acute midline low back pain without sciatica M54.5 and half-way 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 Z79.891 [facility] [address] [place] [address] 02382- 8108 Nov, [facility] [address], [place] [address]- 0750 October, [facility] [address], [place] [address]- 4970 October, [facility] [address], [place] [address]- 6218 Sep, Right leg pain M79.604 [facility] [id number] [place] [address] 02294- 7456 Sep, [facility] [address] [place] [address] 25500- 5352 Aug, Right leg pain M79.604 [facility] [address] [place] [address] 70822- 5061 Jul, [facility] [id number] [place] [address] 38642- 1898 Jul, 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.50 and Right leg pain M79.604 [facility] [address], [place] [address]- 6222 Jun, 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.50 [facility] [address], [place] [address]- 2280 Jun, [facility] [address], [place] [address]- 5282 Jun, Right leg pain M79.604 [facility] [address], [place] [address]- 1543 Jun, Right leg pain M79.604 [facility] [address] [place] [address] 63125- 7780 Jun, Abnormal mammogram of left breast R92.8 [facility] [address], [place] [address]- 5705 May, Routine gynecological examination V72.31 ; Breast cancer screening Z12.39 ; Cervical cancer screening Z12.4 ; Colon cancer screening Z12.11 and Calculus of gallbladder without cholecystitis without obstruction K80.20 [facility] [id number] [place] [address] 22019- 2418 May, 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.50 [facility] [id number] [place] [address] 25429- 2713 Apr, 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.50 [facility] [address] 77788- 3784 17 Apr, 2016 Screening, lipid Z13.220 [facility] [address] 83976- 3731 14 Apr, 2016 Other chronic pain G89.29 ; Scoliosis, unspecified scoliosis type, unspecified spinal region M41.9 ; Right leg pain M79.604 ; Major depressive disorder, single episode, unspecified F32.9 ; Fatigue due to exposure, subsequent encounter T73.2XXD ; Dysthymia F34.1 and Screening, lipid Z13.220 [facility] [id number] [place] [address] 09218- 2401 Apr, 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.50 [facility] [id number] [place] [address] 42143- 7393 Mar, Dysthymia 300.4 [facility] [id number] [place] [address] 67831- 6221 Mar, 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.50 [facility] [id number] [place] [address] 45587- 6161 Feb, 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.50 [facility] [id number] [place] [address] 06099- 3806 Jan, 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.50 [facility] [id number] [place] [address] 18450- 2590 Dec, 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 [facility] [address] [address]- 3565 Dec, [facility] [id number] [place] [address] 96167- 8390 Dec, Right leg pain M79.604 and Scoliosis, unspecified scoliosis type, unspecified spinal region M41.9 [facility] [id number] [place] [address] 03070- 9596 Dec, Right leg pain M79.604 and Scoliosis, unspecified scoliosis type, unspecified spinal region M41.9 [facility] [id number] [place] [address] 29439- 8497 Dec, 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.50 [facility] [id number] [place] [address] 49887- 6278 Nov, 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.50 [facility] [id number] [place] [address] 96447- 0397 October, 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.50 and Scoliosis, unspecified scoliosis type , unspecified spinal region M41.9 [facility] [id number] [place] [address] 83093- 9873 Sep, [facility] [id number] [place] [address] 10042- 2206 Aug, [facility] [id number] [place] [address] 33863- 6771 Aug, 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.50 ; Myalgia M79.1 and Scoliosis M41.9 [facility] [id number] [place] [address] 91332- 7855 Jul, Other chronic pain G89.29 [facility] [id number] [place] [address] 19932- 9285 Jul, Other chronic pain G89.29 [facility] [id number] [place] [address] 04151- 5144 Jul, Impingement syndrome of both shoulders M75.41 [facility] [id number] [place] [address] 45234- 7154 Jun, [facility] [id number] [place] [address] 27763- 0140 Jun, [facility] [id number] [place] [address] 45859- 0514 Jun, Scoliosis (and kyphoscoliosis), idiopathic M41.20 and Other chronic pain G89.29 [facility] [id number] [place] [address] 91459 -6588 Jun, Upper respiratory tract infection, unspecified type 465.9 and Rhinorrhea J34.89 [facility] [id number] [place] [address] 00672- 4043 May, [facility] [address] 45833- 4489 May, [facility] [id number] [place] [address] 99787- 7900 Apr, Dysuria R30.0 ; Urinary tract infection, site not specified N39.0 and Hematuria, unspecified R31.9 [facility] [id number] [place] [address] 75437- 9912 Apr, [facility] [id number] [place] [address] 87386- 4667 Mar, Family history of early CAD Z82.49 [facility] [id number] [place] [address] 70325- 7592 Mar, Other chronic pain G89.29 [facility] [id number] [place] [address] 84391- 3701 Mar, Impingement syndrome of both shoulders M75.41 [facility] [id number] [place] [address] 19896- 6866 Mar, Other chronic pain G89.29 ; Dysthymia F34.1 ; Family history of early CAD Z82.49 ; Dysuria R30.0 and Other specified disorders of Eustachian tube, right ear H69.81 [facility] [id number] [place] [address] 08009- 9377 Mar, [facility] [id number] [place] [address] 52419- 4378 Feb, [facility] [address] 35682- 7639 Jan, [facility] [address] 87095- 9710 Jan, Eustachian tube dysfunction 381.81 and Dysthymia 300.4 [facility] [id number] [place] [address] 57919- 1100 Dec, [facility] [address] 11564- 0333 Nov, Impingement syndrome of both shoulders 726.2 [facility] [id number] [place] [address] 41781- 7452 Nov, [facility] [id number] [place] [address] 86879- 2891 Nov, [facility] [id number] [place] [address] 10213- 7238 Nov, Urgency of urination 788.63 [facility] [id number] [place] [address] 56243- 6829 October, [facility] [id number] [place] [address] 31748- 8683 October, [facility] [id number] [place] [address] 55922- 7424 Sep, [facility] [id number] [place] [address] 94162- 0157 Sep, [facility] [address] [place] [address]- 4286 Aug, [facility] [place] [facility] [address] [id number] [place] [address]- 6764 Aug, [facility] [place] [facility] [address] [id number] [place] [address]- 5931 Aug, [facility] [place] [facility] [address] [id number] [place] [address]- 4475 Aug, [facility] [place] [facility] [address] [id number] [place] [address]- 7228 Aug, [facility] [place] [facility] [address] [id number] [place] [address]- 2337 Aug, [facility] [place] [facility] [address] [id number] [place] [address]- 3446 Aug, [facility] [place] [facility] [address] [facility] [id number] [place] [address]- 2241 Jul, [facility] [place] [facility] [address] [id number] [place] [address]- 9796 Jul, [facility] [place] [facility] [address] [facility] [id number] [place] [address]- 8854 Jul, [facility] [place] [facility] [address] [facility] [id number] [place] [address]- 4959 Jul, [facility] [place] [facility] [address] [facility] [id number] [place] [address]- 5291 Jul, [facility] [place] [facility] [address] [facility] [id number] [place] [address]- 4345 Jul, [facility] [place] [facility] [address] [facility] [id number] [place] [address]- 7151 Jun, [facility] [place] [facility] [address] [facility] [id number] [place] [address]- 1636 Jun, [facility] [place] [facility] [address] [facility] [id number] [place] [address]- 5083 May, [facility] [place] [facility] [address] [id number] [place] [address]- 2494 May, [facility] [place] [facility] [address] [id number] [place] [address]- 4080 May, [facility] [place] [facility] [address] [id number] [place] [address]- 3148 May, [facility] [place] [facility] [address] [id number] [place] [address]- 2991 Mar, [facility] [place] [facility] [address] [id number] [place] [address]- 7228 Mar, [facility] [place] [facility] [address] [id number] [place] [address]- 6075 Feb, [facility] [place] [facility] [address] [id number] [place] [address]- 4228 Feb, [facility] [place] [facility] [address] [id number] [place] [address]- 2791 Jan, [facility] [place] [facility] [address] [id number] [place] [address]- 3047 Jan, [facility] [place] [facility] [address] [id number] [place] [address]- 3386 Jan, [facility] [place] [facility] [address] [id number] [place] [address]- 9277 Jan, [facility] [place] [facility] [address] [id number] [address]- 6539 Jan, [facility] [place] [facility] [address] [id number] [place] [address]- 0142 Nov, [facility] [place] [facility] [address] [id number] [place] [address]- 5119 Nov, [facility] [place] [facility] [address] [id number] [place] [address]- 7009 October, [facility] [place] [facility] [address] [id number] [place] [address]- 6847 October, [facility] [place] [facility] [address] [id number] [place] [address]- 5388 October, [facility] [place] [facility] [address] [id number] [place] [address]- 6440 October, [facility] [place] [facility] [address] [id number] [place] [address]- 0366 Sep, [facility] [place] [facility] [address] [id number] [place] [address]- 3976 Aug, [facility] [place] [facility] [address] [id number] [place] [address]- 8291 Aug, [facility] [place] [facility] [address] [id number] [place] [address]- 6935 Aug, [facility] [place] [facility] [address] [id number] [place] [address]- 6938 Aug, [facility] [place] [facility] [address] [id number] [place] [address]- 5882 Jul, [facility] [place] [facility] [address] [id number] [place] [address]- 6870 Jul, [facility] [place] [facility] [address] [id number] [place] [address]- 8707 Jun, [facility] [place] [facility] [address] [id number] [place] [address]- 1422 Jun, [facility] [place] [facility] [address] [id number] [place] [address]- 8602 Jun, [facility] [place] [facility] [address] [id number] [place] [address]- 4175 Jun, [facility] [place] [facility] [address] [id number] [place] [address]- 2047 Jun, [facility] [place] [facility] [address] [id number] [place] [address]- 4866 Jun, [facility] [place] [facility] [address] [id number] [place] [address]- 9228 Mar, [facility] [place] [facility] [address] [id number] [place] [address]- 9529 Mar, [facility] [place] [facility] [address] [id number] [place] [address]- 4473 Feb, [facility] [place] [facility] [address] [id number] [place] [address]- 6184 Feb, [facility] [place] [facility] [address] [id number] [place] [address]- 6131 Feb, [facility] [place] [facility] [address] [id number] [place] [address] Jan, [facility] [place] [facility] [address] [id number] [place] [address] Jan, [facility] [place] [facility] [address] [id number] [place] [address] Dec, [facility] [place] [facility] [address] [id number] [place] [address] Nov, [facility] [place] [facility] [address] [id number] [place] [address] Sep, [facility] [place] [facility] [address] [id number] [place] [address] Aug, [facility] [place] [facility] [address] [id number] [place] [address] Aug, [facility] [place] [facility] [address] [id number] [place] [address] Aug, [facility] [place] [facility] [address] [id number] [place] [address] Jul, [facility] [place] [facility] [address] [id number] [place] [address] Jul, [facility] [place] [facility] [address] [id number] [place] [address] Jul, [facility] [address] [id number] [place] [address] Jul, [facility] [place] [facility] [address] [id number] [place] [address] Jul, [facility] [address] [id number] [place] [address] Apr, [facility] [place] [facility] [address] [id number] [place] [address] Apr, [facility] [address] [id number] [place] [address] Jan, [facility] [place] [facility] [address] [id number] [place] [address] Jan, [facility] [address] [id number] [place] [address] Dec, [facility] [place] [facility] [address] [id number] [place] [address] Dec, [facility] [address] [id number] [place] [address] Dec, [facility] [place] [facility] [address] [id number] [place] [address]- [address] Dec, [facility] [place] [facility] [address] [id number] [place] [address]- [address] Dec, [facility] [place] [facility] [address] [id number] [place] [address] October, [facility] [place] [facility] [address] [id number] [place] [address] Aug, [facility] [place] [facility] [address] [id number] [place] [address] Aug, [facility] [place] [facility] [address] [id number] [place] [address] Aug, [facility] [place] [facility] [address] [id number] [address] Jul, [facility] [address] [id number] [address] May, [facility] [id number] [address] Apr, [facility] [id number], [place] [address] May, [facility] [id number], [place] [address] May, [facility] [id number] [address] May, [facility] [id number], [place] [address] Mar, [facility] [id number], [place] [address] Mar, [facility] [address] [id number] [address] Aug, IMMUNIZATIONS No Known Immunizations SOCIAL HISTORY Never Assessed REASON FOR VISIT Controlled Med Refill 11/23/17 PLAN OF CARE VITAL SIGNS MEDICATIONS Medication Instructions Dosage Frequency Start Date End Date Duration Status Percocet 10-325 MG Orally 5 times per day 1 tablet as needed October, 28 days Active Lyrica 150 MG Orally [...]
--- OUTSIDE RECORDS SUMMARY | 2018-06-07 13:23 | XMS REPORT ---
Author Author CHUY NGUYEN Organization [facility] Address [address] [place] [address] Care Team Providers Care Impregnator Operator Name Role Phone CHUY NGUYEN Unavailable PROBLEMS Type Condition ICD9-CM Code VRD43-OK Code Onset Dates Condition Status SNOMED Code Problem Scoliosis (and kyphoscoliosis), idiopathic M41.20 Active 24635212 Problem Myalgia M79.1 Active 71495257 Problem Other chronic pain G89.29 Active 87436513 Problem Urinary urgency R39.15 Active 69922443 Problem Dysthymia F34.1 Active 90462395 Problem Varicose veins I86.8 Active 975638795 Problem Need for prophylaxis against urinary tract infection Z29.8 Active 961485266 Problem Abnormal mammogram of left breast R92.8 Active 816906984 Problem Scoliosis, unspecified scoliosis type, unspecified spinal region M41.9 Active 253472623 Problem 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.50 Active 75788780 Problem Calculus of gallbladder without cholecystitis without obstruction K80.20 Active 180025230 Problem Major depressive disorder, single episode, unspecified F32.9 Active 50901270 ALLERGIES No Information ENCOUNTERS Encounter Location Date Diagnosis [facility] [id number] [place] [address] 85904- 4897 Feb, [facility] [id number] [place] [address] 38985- 1575 Jan, [facility] [id number] [place] [address] 44192- 6601 Jan, Right hip pain M25.551 and Opioid use disorder, mild, in controlled environment F11.10 [facility] [id number] [place] [address] 58897- 7387 Jan, Other chronic pain G89.29 and Myalgia M79.1 [facility] [id number] [place] [address] 01318- 7374 16 Jan, 2018 Urinary tract infection without hematuria, site unspecified N39.0 [facility] [facility] [id number] [place] [address] 05100- 7527 13 Jan, 2018 Therapeutic drug monitoring Z51.81 ; Scoliosis, unspecified scoliosis type, unspecified spinal region M41.9 ; Chronic prescription opiate use Z79.891 ; Dysthymia F34.1 ; Alcohol use Z78.9 and Frequent urinary tract infections N39.0 [facility] [id number] [place] [address] 35932- 3716 Dec, Other chronic pain G89.29 and Myalgia M79.1 [facility] [id number] [place] [address] 65403- 7109 Dec, Impacted cerumen, right ear H61.21 and Dysfunction of right eustachian tube H69.81 [place] [id number] [place] [address] 36574- 3934 Nov, Myalgia M79.1 and Other chronic pain G89.29 [facility] [id number] [place] [address] 33318- 1622 October, Other chronic pain G89.29 and Myalgia M79.1 [place] [id number] [place] [address] 39403- 1128 Sep, Other chronic pain G89.29 [place] [id number] [place] [address] 16995- 8867 Aug, Other chronic pain G89.29 [place] [id number] [place] [address] 95619- 2568 Aug, Scoliosis (and kyphoscoliosis), idiopathic M41.20 [place] [id number] [place] [address] 44688- 7439 Aug, [place] [id number] [place] [address] 02941- 8762 12 Aug, 2017 Dysuria R30.0 ; Scoliosis, unspecified scoliosis type, unspecified spinal region M41.9 ; Encounter for therapeutic drug level monitoring Z51.81 and Alcohol use Z78.9 [place] [id number] [place] [address] 15416- 8350 07 Aug, 2017 Other chronic pain G89.29 [place] [address] 84045- 6717 23 Jul, 2017 Chronic urinary tract infection N39.0 [place] [address] 54326- 6639 07 Jul, 2017 Other chronic pain G89.29 [place] [id number] [place] [address] 83502- 5264 Jun, [place] [address] 74914- 3436 Jun, [place] [id number] [place] [address] 05706- 7853 Jun, Acute left-sided thoracic back pain M54.6 [facility] [id number] [place] [address] 15179 -6383 Jun, Cough R05 and Acute bilateral thoracic back pain M54.6 [facility] [id number] [place] [address] 24248 -3611 15 Jun, 2017 Back pain, unspecified back location, unspecified back pain laterality, unspecified chronicity M54.9 and Left flank pain R10.9 [place] [id number] [place] [address] 25581- 4296 10 Jun, 2017 Other chronic pain G89.29 [place] [id number] [place] [address] 17539- 8690 03 Jun, 2017 Myalgia M79.1 [place] [address] 94657- 5412 May, Other chronic pain G89.29 [place] [id number] [place] [address] 43111- 2427 May, Myalgia M79.1 and Fatigue due to exposure, subsequent encounter T73.2XXD [place] [id number] [place] [address] 67412- 6141 05 May, 2017 Fatigue due to exposure, subsequent encounter T73.2XXD [place] [id number] [place] [address] 08700- 4278 15 Apr, 2017 Other chronic pain G89.29 and Myalgia M79.1 [place] [id number] [place] [address] 56569- 2916 08 Apr, 2017 Closed nondisplaced fracture of phalanx of left great toe with routine healing, unspecified phalanx, subsequent encounter S92.405D ; Dysuria R30.0 ; Localized edema R60.0 and 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.50 [place] [id number] [place] [address] 48094- 8527 Mar, Other chronic pain G89.29 and Myalgia M79.1 [place] [id number] [place] [address] 48049- 6816 Mar, [place] [id number] [place] [address] 04483- 5694 Mar, Dysuria R30.0 ; Other chronic pain G89.29 ; Scoliosis, unspecified scoliosis type, unspecified spinal region M41.9 and Chronic urinary tract infection N39.0 [place] [id number] [place] [address] 52270- 8126 20 Feb, 2017 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.50 and Myalgia M79.1 [place] [id number] [place] [address] 59679- 9184 13 Feb, 2017 [place] [id number] [place] [address] 69610- 1255 Feb, [place] [address] [address]- 3646 Feb, Closed compression fracture of L4 lumbar vertebra with routine healing, subsequent encounter S32.040D ; Closed nondisplaced fracture of phalanx of left great toe with routine healing, unspecified phalanx, subsequent encounter S92.405D and Chronic urinary tract infection N39.0 [place] [id number] [place] [address] 50322- 0305 Jan, Closed compression fracture of fourth lumbar vertebra, initial encounter S32.040A [place] [id number] [place] [address] 38612- 4609 Jan, Urinary tract infection, site not specified N39.0 [place] [id number] [place] [address] 02981- 5177 Jan, [place] [id number] [place] [address] 61444- 4226 Jan, [place] [address] [place] [address] 60472- 8022 Jan, 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.50 and Myalgia M79.1 [place] [address] [place] [address] 26800- 9831 Jan, Need for prophylaxis against urinary tract infection Z29.8 and Urinary tract infection, site not specified N39.0 [place] [address] [place] [address] 94616- 4427 Dec, Urinary tract infection, site not specified N39.0 and Need for prophylaxis against urinary tract infection Z29.8 [place] [id number] [place] [address] 69043- 3784 Dec, Major depressive disorder, single episode, unspecified F32.9 ; Myalgia M79.1 ; 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.50 and residential 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 Z79.891 [place] [id number] [place] [address] 34080- 4904 Dec, Other chronic pain G89.29 and Dysuria R30.0 [facility] [id number] [place] [address] 61066- 2036 Nov, residential 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 Z79.891 [facility] [address] [place] [address] 56017- 9266 Nov, Acute midline low back pain without sciatica M54.5 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 [facility] [id number] [place] [address] 20744- 4368 Nov, [facility] [id number] [place] [address] 79371- 6226 October, [facility] [id number] [place] [address] 92059- 4028 October, [facility] [id number] [place] [address] 32931- 6402 Sep, Right leg pain M79.604 [facility] [id number] [place] [address] 07841- 3376 Sep, [facility] [id number] [place] [address] 13806- 4029 Aug, Right leg pain M79.604 [facility] [address] [place] [address] 40592- 6386 Jul, [facility] [id number] [place] [address] 48676 2542 Jul, 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.50 and Right leg pain M79.604 [facility] [address] [place] [address] 549738- 6446 Jun, 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.50 [facility] [address] [place] [address] 22218 2546 Jun, [facility] [id number] [place] [address] 22853- 7972 Jun, Right leg pain M79.604 [place] [address] 37598- 1811 Jun, Right leg pain M79.604 [place] [address] 92537- 9571 Jun, Abnormal mammogram of left breast R92.[address] 00015- 7396 May, Routine gynecological examination V72.31 ; Breast cancer screening Z12.39 ; Cervical cancer screening Z12.4 ; Colon cancer screening Z12.11 and Calculus of gallbladder without cholecystitis without obstruction K80.[address] 21293- 1481 May, Arthralgia M25.[address] 35331- 4899 Apr, Arthralgia M25.[address] 19032- 6994 Apr, Screening, lipid Z13.220 [place] [id number] [place] [address] 79663- 7966 14 Apr, 2016 Other chronic pain G89.29 ; Scoliosis, unspecified scoliosis type, unspecified spinal region M41.9 ; Right leg pain M79.604 ; Major depressive disorder, single episode, unspecified F32.9 ; Fatigue due to exposure, subsequent encounter T73.2XXD ; Dysthymia F34.1 and Screening, lipid Z13.[address] 26955- 7275 Apr, Arthralgia M25.[address] 98026- 6963 Mar, Dysthymia 300.[address] [address]- 2821 Mar, Arthralgia M25.50 [facility] [id number] [place] [address] 49785- 8421 Feb, Arthralgia M25.50 [facility] [address] [place] [address] 76375- 3671 Jan, Arthralgia M25.50 [facility] [id number] [place] [address] 93701- 6542 Dec, 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 [facility] [id number] [place] [address] 97277- 3842 Dec, [facility] [id number] [place] [address] 02112- 6312 Dec, Right leg pain M79.604 and Scoliosis, unspecified scoliosis type, unspecified spinal region M41.9 [facility] [id number] [place] [address] 36517- 5944 Dec, Right leg pain M79.604 and Scoliosis, unspecified scoliosis type, unspecified spinal region M41.9 [facility] [id number] [place] [address] 50554- 0710 Dec, Arthralgia M25.50 [facility] [id number] [place] [address] 97388- 6183 Nov, Arthralgia M25.50 [facility] [address] [place] [address] 35935- 2177 October, Arthralgia M25.50 and Scoliosis, unspecified scoliosis type , unspecified spinal region M41.9 [facility] [address] [place] [address] 28686- 9579 Sep, [facility] [id number] [place] [address] 51479- 5730 Aug, [facility] [id number] [place] [address] 84341- 4346 Aug, Arthralgia M25.50 ; Myalgia M79.1 and Scoliosis M41.9 [place] [address] 37642- 9037 Jul, Other chronic pain G89.29 [facility] [address] 03181- 7483 Jul, Other chronic pain G89.29 [facility] [address] 17380- 0863 Jul, Impingement syndrome of both shoulders M75.41 [place] [address] 12534- 6933 Jun, [place] [address] 82766- 9758 Jun, [place] [address] 63013- 9474 Jun, Scoliosis (and kyphoscoliosis), idiopathic M41.20 and Other chronic pain G89.29 [facility] [id number] [place] [address] 84919 -5169 Jun, Upper respiratory tract infection, unspecified type 465.9 and Rhinorrhea J34.89 [place] [id number] [place] [address] 15827- 2125 May, [facility] [address] 44296- 5233 May, [place] [address] 25003- 5284 Apr, Dysuria R30.0 ; Urinary tract infection, site not specified N39.0 and Hematuria, unspecified R31.9 [facility] [address] 40424- 5626 Apr, [facility] [id number] [place] [address] 19071- 6765 Mar, Family history of early CAD Z82.49 [facility] [id number] [place] [address] 37466- 4779 Mar, Other chronic pain G89.29 [facility] [id number] [place] [address] 01489- 5663 Mar, Impingement syndrome of both shoulders M75.41 [facility] [id number] [place] [address] 16572- 5520 Mar, Other chronic pain G89.29 ; Dysthymia F34.1 ; Family history of early CAD Z82.49 ; Dysuria R30.0 and Other specified disorders of Eustachian tube, right ear H69.81 [facility] [id number] [place] [address] 18235- 4241 Mar, [facility] [id number] [place] [address] 00881- 8492 Feb, [facility] [id number] [place] [address] 10963- 7415 Jan, [facility] [id number] [place] [address] 58165- 0478 Jan, Eustachian tube dysfunction 381.81 and Dysthymia 300.4 [facility] [id number] [place] [address] 04733- 6057 Dec, [facility] [id number] [place] [address] 37812- 8807 Nov, Impingement syndrome of both shoulders 726.2 [facility] [id number] [place] [address] 17066- 2519 Nov, [facility] [id number] [place] [address] 000016- 9626 Nov, [facility] [id number] [place] [address] 96299- 8077 Nov, Urgency of urination 788.63 [facility] [place] [address] [id number] [place] [address]- 8816 October, [facility] [address] [id number] [place] [address]- 9256 October, [facility] [address] [facility] [id number] [place] [address]- 8766 Sep, [facility] [address] [id number] [place] [address]- 5371 Sep, [facility] [address] [facility] [id number] [place] [address]- 8120 Aug, [facility] [address] [facility] [id number] [place] [address]- 2137 Aug, [facility] [address] [place] [address]- 7884 Aug, [facility] [address] [facility] [id number] [place] [address]- 5031 Aug, [facility] [id number] [address]- 2232 Aug, [facility] [address] [facility] [id number], [place] [address]- 0036 Aug, [facility] [address] [facility] [id number] [place] [address]- 1653 Aug, [facility] [address] [facility] [id number], [place] [address]- 8703 Jul, [facility] [address] [facility] [id number] [place]- 5994 Jul, [facility] [address] [facility] [id number] [place] [address]- 7308 Jul, [facility] [id number] 1632 Jul, [facility] [place] [facility] [address] [id number] [place] [address]- 2356 Jul, [facility] [place] [facility] [address] [id number] [place] [address]- 1503 Jul, [facility] [place] [facility] [address] [facility] [id number] [place] [address]- 9200 Jun, [facility] [place] [facility] [address] [id number] [place] [address]- 1156 Jun, [facility] [place] [facility] [address] [id number] [place] [address]- 1787 May, [facility] [place] [facility] [address] [id number] [place] [address]- 4266 May, [facility] [place] [facility] [address] [id number] [place] [address]- 4086 May, [facility] [place] [facility] [address] [id number] [place] [address]- 1374 May, [facility] [place] [facility] [address] [id number] [place] [address]- 3479 Mar, [facility] [place] [facility] [address] [id number] [place] [address]- 8332 Mar, [facility] [place] [facility] [address] [id number], [place] [address]- 7414 Feb, [facility] [place] [facility] [address] [id number], [place] [address]- 2729 Feb, [facility] [place] [facility] [address] [id number] [place] [address]- 5116 Jan, [facility] [place] [facility] [address] [id number] [place] [address]- 7070 Jan, [facility] [place] [facility] [address] [id number] [place] [address]- 9897 Jan, [facility] [place] [facility] [address] [id number] [place] [address]- 3985 Jan, [facility] [place] [facility] [address] [id number] [place] [address]- 6792 Jan, [facility] [place] [facility] [address] [id number] [place] [address]- 5240 Nov, [facility] [place] [facility] [address] [id number] [place] [address]- 2615 Nov, [facility] [place] [facility] [address] [id number] [place] [address]- 3213 October, [facility] [place] [facility] [address] [id number] [place] [address]- 0661 October, [facility] [place] [facility] [address] [id number] [place] [address]- 4986 October, [facility] [place] [facility] [address] [id number] [place] [address]- 1125 October, [facility] [place] [facility] [address] [id number] [place] [address]- 2866 Sep, [facility] [place] [facility] [address] [id number] [place] [address]- 1018 Aug, [facility] [place] [facility] [address] [id number] [place] [address]- 6008 Aug, [facility] [place] [facility] [address] [id number] [place] [address]- 4426 Aug, [facility] [place] [facility] [address] [id number] [place] [address]- 2979 Aug, [facility] [place] [facility] [address] [id number] [place] [address]- [address] Jul, [facility] [place] [facility] [address] [id number] [place] [address] Jul, [facility] [place] [facility] [address] [id number] [place] [address] Jun, [facility] [place] [facility] [address] [id number] [place] [address] Jun, [facility] [place] [facility] [address] [id number] [place] [address] Jun, [facility] [place] [facility] [address] [id number] [place] [address] Jun, [facility] [place] [facility] [address] [id number] [place] [address] Jun, [facility] [place] [facility] [address] [id number] [place] [address] Jun, [facility] [place] [facility] [address] [id number] [place] [address] Mar, [facility] [place] [facility] [address] [id number] [place] [address] Mar, [facility] [place] [facility] [address] [id number] [place] [address] Feb, [facility] [place] [facility] [address] [id number] [place] [address] Feb, [facility] [place] [facility] [address] [id number] [place] [address] Feb, [facility] [place] [facility] [address] [id number] [place] [address] Jan, [facility] [place] [facility] [address] [id number], [place] [address] 15 Jan, 2013 [facility] [place] [facility] [address] [id number] [place] [address] Dec, [facility] [place] [facility] [address] [id number] [place] [address] Nov, [facility] [place] [facility] [address] [id number] [place] [address] Sep, [facility] [place] [facility] [address] [id number], [place] [address] Aug, [facility] [address] [id number] [place] [address] Aug, [facility] [place] [facility] [address] [id number] [place] [address] Aug, [facility] [address] [id number] [place] [address] Jul, [facility] [place] [facility] [address] [id number] [place] [address] Jul, [facility] [address] [id number] [place] [address] Jul, [facility] [address] [id number] [place] [address] Jul, [facility] [address] [id number] [place] [address] Jul, [facility] [address] [id number] [place] [address] Apr, [facility] [address] [id number] [place] [address] Apr, [facility] [address] [id number] [place] [address] Jan, [facility] [address] [id number] [place] [address] Jan, [facility] [place] [facility] [address] [id number] [place] [address] Dec, [facility] [place] [facility] [address] [id number] [place] [address] Dec, [facility] [place] [facility] [address] [id number] [place] [address]- [address] Dec, [facility] [place] [facility] [address] [id number] [place] [address] Dec, [facility] [address] [facility] [id number], [place] [address] Dec, [facility] [address] [facility] [id number], [place] [address] October, [facility] [address] [facility] [id number], [place] [address] Aug, [facility] [address] [facility] [id number], [place] [address] Aug, [facility] [address] [facility] [id number], [place] [address] Aug, [facility] [address] [facility] [id number] [place] [address], [place] [address] Jul, [facility] [id number], [place] [address] May, [facility] [id number], [place] [address] Apr, [facility] [id number], [place] [address] May, [facility] [id number], [place] [address] May, [facility] [id number], [place] [address] May, [facility] [id number], [place] [address] Mar, [facility] [address] [id number], [place] [address] Mar, [facility] [id number], [place] [address] Aug, IMMUNIZATIONS No Known Immunizations SOCIAL HISTORY Never Assessed REASON FOR VISIT Controlled Med Refill 12/21/17 PLAN OF CARE VITAL SIGNS MEDICATIONS Medication Instructions Dosage Frequency Start Date End Date Duration Status Lyrica 150 MG Orally 3 times a day 1 capsule 8h 14 Apr, 2016 28 days Active Percocet 10-325 MG Orally 5 times per day 1 tablet as needed Nov, 28 days Active RESULTS No Results PROCEDURES No Known procedures INSTRUCTIONS MEDICATIONS ADMINISTERED No Known Medications MEDICAL (GENERAL) HISTORY Type Description Date Medical History chronic pain Medical History arthritis Surgical History Nephrectomy - age 3 Surgical History Appendectomy Hospitalization History surgery Hospitalization History childbirth x 3
--- OUTSIDE RECORDS SUMMARY | 2018-06-07 13:24 | XMS REPORT ---
Author Author CHUY NGUYEN [facility] Address [address] [place] [address] Care Team Providers Care Product Support Representative Name Role Phone CHUY NGUYEN Unavailable PROBLEMS Type Condition ICD9-CM Code [id number] Code Onset Dates Condition Status SNOMED Code Problem Scoliosis (and kyphoscoliosis), idiopathic M41.20 Active 63046139 Problem Myalgia M79.1 Active 46982389 Problem Other chronic pain G89.29 Active 58479414 Problem Urinary urgency R39.15 Active 15089760 Problem Dysthymia F34.1 Active 16050528 Problem Varicose veins I86.8 Active 712495031 Problem Need for prophylaxis against urinary tract infection Z29.8 Active 276459756 Problem Abnormal mammogram of left breast R92.8 Active 344694421 Problem Scoliosis, unspecified scoliosis type, unspecified spinal region M41.9 Active 403907747 Problem Arthralgia M25.50 Active 59281090 Problem Calculus of gallbladder without cholecystitis without obstruction K80.20 Active 444996187 Problem Major depressive disorder, single episode, unspecified F32.9 Active 86055935 ALLERGIES No Information ENCOUNTERS Encounter Location Date Diagnosis [place] [id number] [place] [address] 83742- 4586 Jan, [place] [id number] [place] [address] 22642- 2000 Dec, Other chronic pain G89.29 and Myalgia M79.1 [place] [id number] [place] [address] 84111- 6061 Dec, Impacted cerumen, right ear H61.21 and Dysfunction of right eustachian tube H69.[address] [place] [address] 95350- 4279 Nov, Myalgia M79.1 and Other chronic pain G89.29 [facility] [id number] [place] [address] 65295- 1522 October, Other chronic pain G89.29 and Myalgia M79.1 [facility] [id number] [place] [address] 12749- 1700 Sep, Other chronic pain G89.29 [facility] [id number] [place] [address] 35325- 6142 Aug, Other chronic pain G89.29 [facility] [id number] [place] [address] 65251- 9057 Aug, Scoliosis (and kyphoscoliosis), idiopathic M41.20 [place] [id number] [place] [address] 15720- 3741 Aug, [facility] [id number] [place] [address] 56096- 7352 Aug, Dysuria R30.0 ; Scoliosis, unspecified scoliosis type, unspecified spinal region M41.9 ; Encounter for therapeutic drug level monitoring Z51.81 and Alcohol use Z78.9 [facility] [id number] [place] [address] 13246- 1575 Aug, Other chronic pain G89.29 [facility] [id number] [place] [address] 00392- 0509 Jul, Chronic urinary tract infection N39.0 [facility] [id number] [place] [address] 00999- 4108 Jul, Other chronic pain G89.29 [facility] [id number] [place] [address] 27957- 1672 Jun, [facility] [id number] [place] [address] 94864- 2605 Jun, [facility] [id number] [place] [address] 68380- 4646 Jun, Acute left-sided thoracic back pain M54.6 [facility] [id number] [place] [address] 90265 -9350 18 Jun, 2017 Cough R05 and Acute bilateral thoracic back pain M54.6 [facility] [id number] [place] [address] 82524 -3056 15 Jun, 2017 Back pain, unspecified back location, unspecified back pain laterality, unspecified chronicity M54.9 and Left flank pain R10.9 [place] [address] 01328- 3398 Jun, Other chronic pain G89.29 [place] [address] 82382- 4132 03 Jun, 2017 Myalgia M79.1 [place] [address] 00719- 4836 13 May, 2017 Other chronic pain G89.29 [place] [address] 87898- 8647 07 May, 2017 Myalgia M79.1 and Fatigue due to exposure, subsequent encounter T73.2XXD [place] [id number] [place] [address] 53544- 3265 05 May, 2017 Fatigue due to exposure, subsequent encounter T73.2XXD [place] [id number] [place] [address] 21902- 7308 15 Apr, 2017 Other chronic pain G89.29 and Myalgia M79.1 [place] [id number] [place] [address] 52755- 6823 08 Apr, 2017 Closed nondisplaced fracture of phalanx of left great toe with routine healing, unspecified phalanx, subsequent encounter S92.405D ; Dysuria R30.0 ; Localized edema R60.0 and Arthralgia M25.50 [place] [address] 87049- 9051 18 Mar, 2017 Other chronic pain G89.29 and Myalgia M79.1 [facility] [address] [id number] [place] [address] 88840- 5722 Mar, [facility] [id number] [place] [address] 48635- 4924 Mar, Dysuria R30.0 ; Other chronic pain G89.29 ; Scoliosis, unspecified scoliosis type, unspecified spinal region M41.9 and Chronic urinary tract infection N39.0 [place] [id number] [place] [address] 46838- 5903 20 Feb, 2017 Arthralgia M25.50 and Myalgia M79.1 [place] [id number] [place] [address] 02841- 8493 Feb, [place] [id number] [place] [address] 52949- 2003 Feb, [facility] [address] [id number] [place] [address] 73465- 8297 Feb, Closed compression fracture of L4 lumbar vertebra with routine healing, subsequent encounter S32.040D ; Closed nondisplaced fracture of phalanx of left great toe with routine healing, unspecified phalanx, subsequent encounter S92.405D and Chronic urinary tract infection N39.0 [place] [address] [place] [address] 00588- 8489 Jan, Closed compression fracture of fourth lumbar vertebra, initial encounter S32.040A [facility] [address] [place] [address] 32623- 3816 Jan, Urinary tract infection, site not specified N39.0 [facility] [address] [id number] [place] [address] 10937- 4963 Jan, [facility] [address] [place] [address] 18958- 9174 Jan, [facility] [id number] [place] [address] 65726- 5691 Jan, Arthralgia M25.50 and Myalgia M79.1 [place] [id number] [place] [address] 06868- 5894 Jan, Need for prophylaxis against urinary tract infection Z29.8 and Urinary tract infection, site not specified N39.0 [place] [id number] [place] [address] 12450- 6707 Dec, Urinary tract infection, site not specified N39.0 and Need for prophylaxis against urinary tract infection Z29.8 [place] [id number] [place] [address] 27891- 8097 Dec, Major depressive disorder, single episode, unspecified F32.9 ; Myalgia M79.1 ; Arthralgia M25.50 and USP 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 Z79.891 [place] [id number] [place] [address] 12327- 0553 Dec, Other chronic pain G89.29 and Dysuria R30.0 [place] [id number] [place] [address] 33589- 2734 Nov, 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 [place] [id number] [place] [address] 16817- 9149 Nov, Acute midline low back pain without sciatica M54.5 and 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 [place] [address] [place] [address] 81993- 5903 Nov, [facility] [address] [id number] [place] [address] 34075- 1785 October, [facility] [address] [id number] [place] [address] 26387- 4255 October, [facility] [address] [place] [address] 29272- 8858 Sep, Right leg pain M79.604 [place] [address] [id number] [place] [address] 54168- 4999 Sep, [place] [id number] [place] [address] 78892- 1206 Aug, Right leg pain M79.604 [place] [id number] [place] [address] 14515- 4356 Jul, [place] [address] 90553- 8136 Jul, Arthralgia M25.50 and Right leg pain M79.604 [place] [address] 36773- 2558 Jun, Arthralgia M25.50 [place] [address] [id number] [place] [address] 15069- 1845 Jun, [place] [address] 76132- 7960 Jun, Right leg pain M79.604 [place] [id number] [place] [address] 62289- 6662 Jun, Right leg pain M79.604 [place] [id number] [place] [address] 83720- 0927 Jun, Abnormal mammogram of left breast R92.8 [place] [address] [id number] [place] [address] 86082- 6796 May, Routine gynecological examination V72.31 ; Breast cancer screening Z12.39 ; Cervical cancer screening Z12.4 ; Colon cancer screening Z12.11 and Calculus of gallbladder without cholecystitis without obstruction K80.20 [place] [address] [id number] [place] [address] 28070- 0564 May, Arthralgia M25.50 [place] [id number] [place] [address] 82569- 5124 Apr, Arthralgia M25.50 [facility] [id number] [place] [address] 02749- 6885 Apr, Screening, lipid Z13.220 [facility] [id number] [place] [address] 09597- 4301 Apr, Other chronic pain G89.29 ; Scoliosis, unspecified scoliosis type, unspecified spinal region M41.9 ; Right leg pain M79.604 ; Major depressive disorder, single episode, unspecified F32.9 ; Fatigue due to exposure, subsequent encounter T73.2XXD ; Dysthymia F34.1 and Screening, lipid Z13.220 [place] [address] [id number] [place] [address] 71869- 3210 Apr, Arthralgia M25.50 [facility] [id number] [place] [address] 35234- 6103 Mar, Dysthymia 300.4 [place] [id number] [place] [address] 55824- 7738 Mar, Arthralgia M25.50 [facility] [address] [id number] [place] [address] 52926- 9747 Feb, Arthralgia M25.50 [facility] [address] [id number] [place] [address] 52689- 8141 Jan, Arthralgia M25.50 [facility] [address] [id number] [place] [address] 22621- 2046 Dec, 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 [facility] [address] [id number] [place] [address] 32323- 9527 Dec, [facility] [id number] [place] [address] 99510- 2956 Dec, Right leg pain M79.604 and Scoliosis, unspecified scoliosis type, unspecified spinal region M41.9 [facility] [id number] [place] [address] 03857- 3030 Dec, Right leg pain M79.604 and Scoliosis, unspecified scoliosis type, unspecified spinal region M41.9 [place] [address] 86050- 4615 Dec, Arthralgia M25.50 [place] [address] 26007- 0952 Nov, Arthralgia M25.50 [place] [address] 73499- 4787 October, Arthralgia M25.50 and Scoliosis, unspecified scoliosis type , unspecified spinal region M41.9 [place] [address] 94147- 5253 Sep, [place] [address] 09646- 3238 Aug, [place] [address] 10559- 1464 Aug, Arthralgia M25.50 ; Myalgia M79.1 and Scoliosis M41.9 [place] [address] 24226- 7515 Jul, Other chronic pain G89.29 [place] [address] 27160- 9973 Jul, Other chronic pain G89.29 [place] [address] 18513- 3221 Jul, Impingement syndrome of both shoulders M75.41 [place] [address] 19039- 4015 Jun, [place] [address] [id number] [place] [address] 05950- 1304 Jun, [place] [address] 66678- 8604 Jun, Scoliosis (and kyphoscoliosis), idiopathic M41.20 and Other chronic pain G89.29 [facility] [id number] [place] [address] 98031 -2788 Jun, Upper respiratory tract infection, unspecified type 465.9 and Rhinorrhea J34.89 [facility] [id number] [place] [address] 74000- 1242 May, [place] [address] 04742- 6972 May, [place] [address] 41216- 3160 Apr, Dysuria R30.0 ; Urinary tract infection, site not specified N39.0 and Hematuria, unspecified R31.9 [place] [address] 24146- 8114 Apr, [place] [address] 24147- 1320 Mar, Family history of early CAD Z82.49 [place] [address] 28823- 1167 Mar, Other chronic pain G89.29 [place] [address] [id number] [place] [address] 85058- 9921 Mar, Impingement syndrome of both shoulders M75.41 [place] [address] 34537- 8135 Mar, Other chronic pain G89.29 ; Dysthymia F34.1 ; Family history of early CAD Z82.49 ; Dysuria R30.0 and Other specified disorders of Eustachian tube, right ear H69.81 [place] [address] 87708- 7783 Mar, [place] [address] 11433- 5422 Feb, [place] [address]- 9101 Jan, [facility] [id number] [place] [address] 768357- 8867 Jan, Eustachian tube dysfunction 381.81 and Dysthymia 300.4 [facility] [id number] [place] [address] 26576 2546 Dec, [facility] [id number] [place] [address] 07886- 3002 Nov, Impingement syndrome of both shoulders 726.2 [facility] [id number] [place] [address] 73529- 6832 Nov, [facility] [id number] [place] [address] 947924- 9586 Nov, [facility] [id number] [place] [address] 75890- 7068 Nov, Urgency of urination 788.63 [facility] [id number] [place] [address] 67425- 1566 October, [facility] [id number] [place] [address] 42878- 8774 October, [facility] [address] [address]- 4634 Sep, [facility] [address] [place] [address] 43578- 1294 Sep, [facility] [address] 4479 Aug, [facility] [id number] [place] [address] 92830 2546 Aug, [facility] [address]- 1800 Aug, [facility] [id number] [place] [address] 15123- 8356 Aug, [facility] [place] [facility] [address] [id number] [place] [address]- 3867 Aug, [facility] [place] [facility] [address] [id number] [place] [address]- 1256 Aug, [facility] [place] [facility] [address] [facility] [id number] [place] [address]- 4879 Aug, [facility] [place] [facility] [address] [id number] [place] [address]- 2423 Jul, 2014 [facility] [place] [facility] [address] [id number] [place] [address]- 8580 Jul, [facility] [place] [facility] [address] [facility] [id number] [place] [address]- 9476 Jul, [facility] [place] [facility] [address] [facility] [id number] [place] [address]- 3332 Jul, 2014 [facility] [place] [facility] [address] [facility] [id number] [place] [address]- 3253 Jul, [facility] [place] [facility] [address] [facility] [id number] [place] [address]- 1533 Jul, [facility] [place] [facility] [address] [facility] [id number] [place] [address]- 9470 Jun, [facility] [place] [facility] [address] [facility] [id number] [place] [address]- 3335 Jun, [facility] [place] [facility] [address] [facility] [id number] [place] [address]- 3256 May, [facility] [place] [facility] [address] [id number] [place] [address]- 9138 May, [facility] [place] [facility] [address] [facility] [id number] [place] [address]- 9887 May, [facility] [place] [facility] [address] [facility] [id number] [place] [address]- 5154 May, [facility] [place] [facility] [address] [id number] [place] [address]- 9179 Mar, [facility] [place] [facility] [address] [id number] [place] [address]- 1866 Mar, [facility] [place] [facility] [address] [id number] [place] [address]- 6011 Feb, [facility] [place] [facility] [address] [id number] [place] [address]- 9481 Feb, [facility] [place] [facility] [address] [id number] [place] [address]- 6228 Jan, [facility] [place] [facility] [address] [id number] [place] [address]- 9374 Jan, [facility] [place] [facility] [address] [id number] [place] [address]- 1061 Jan, [facility] [place] [facility] [address] [id number] [place] [address]- 7794 Jan, [facility] [place] [facility] [address] [id number] [place] [address]- 4323 Jan, [facility] [place] [facility] [address] [id number] [place] [address]- 5790 Nov, [facility] [place] [facility] [address] [id number] [place] [address]- 4328 Nov, [facility] [place] [facility] [address] [id number] [place] [address]- 0130 October, [facility] [place] [facility] [address] [id number] [place] [address]- 0835 October, [facility] [place] [facility] [address] [id number] [place] [address]- 7313 October, [facility] [place] [facility] [address] [id number] [place] 8500 October, [facility] [place] [facility] [address] [id number] [place] [address]- 8443 Sep, [facility] [place] [facility] [address] [id number] [place] [address]- 8304 Aug, [facility] [place] [facility] [address] [id number] [place] [address]- 8541 Aug, [facility] [place] [facility] [address] [facility] [id number] [place] [address]- 0987 Aug, [facility] [place] [facility] [address] [id number] [place] [address]- 2329 Aug, [facility] [place] [facility] [address] [id number] [place] [address]- 6182 Jul, [facility] [place] [facility] [address] [id number] [place] [address]- 8303 Jul, [facility] [place] [facility] [address] [id number] [place] [address]- 4326 Jun, [facility] [place] [facility] [address] [id number] [place] [address]- 9949 Jun, [facility] [place] [facility] [address] [id number] [place] [address]- 9521 Jun, [facility] [place] [facility] [address] [id number] [place] [address]- 9417 Jun, [facility] [place] [facility] [address] [id number] [place] [address]- 7755 Jun, [facility] [place] [facility] [address] [id number] [place] [address]- 1992 Jun, [facility] [place] [facility] [address] [id number] [place] [address]- 6446 Mar, [facility] [place] [facility] [address] [id number] [place] [address]- 2636 Mar, [facility] [place] [facility] [address] [facility] [id number] [place] [address]- 1894 Feb, [facility] [place] [facility] [address] [id number] [place] [address]- 8604 Feb, [facility] [address] [id number] [place] [address]- 4095 Feb, [facility] [address] [id number] [place] [address] 2546 Jan, [facility] [address] [id number] [place] [address] Jan, [facility] [address] [id number] [place] [address] Dec, [facility] [address] [id number] [place] [address] Nov, [facility] [address] [id number] [place] [address] Sep, [facility] [address] [id number] [place] [address] Aug, [facility] [address] [id number] [place] [address] Aug, [facility] [address] [id number] [place] [address] Aug, [facility] [address] [facility] [id number] [place] [address] Jul, [facility] [address] [id number] [place] [address] Jul, [facility] [address] [id number] [place] [address] Jul, [facility] [place] [facility] [address] [id number] [place] [address] Jul, [facility] [address] [id number] [place] [address] Jul, [facility] [address] [id number] [place] [address] Apr, [facility] [place] [facility] [address] [id number] [place] [address] Apr, [facility] [place] [facility] [address] [id number] [place] [address] Jan, [facility] [place] [facility] [address] [id number] [place] [address] Jan, [facility] [place] [facility] [address] [id number] [place] [address] Dec, [facility] [place] [facility] [address] [id number] [place] [address] Dec, [facility] [place] [facility] [address] [id number] [place] [address] Dec, [facility] [place] [facility] [address] [id number] [place] [address] Dec, [facility] [place] [facility] [address] [id number] [place] [address] Dec, [facility] [place] [facility] [address] [id number] [place] [address] October, [facility] [place] [facility] [address] [id number] [place] [address] Aug, [facility] [place] [facility] [address] [id number] [place] [address] Aug, [facility] [place] [facility] [address] [id number] [address] Aug, [facility] [place] [facility] [address] [id number] [place] [address] Jul, [facility] [place] [facility] [address] [id number] [place] [address] May, [facility] [place] [facility] [address] [id number] [place] [address] Apr, [facility] [place] [facility] [address] [facility] [id number] [address] May, [facility] [address] [id number] [address] May, [facility] [address] [id number] [address] May, [facility] [address] [facility] [id number] [address] Mar, [facility] [address] [id number] [address] Mar, [facility] [address] [facility] [id number] [address] Aug, IMMUNIZATIONS No Known Immunizations SOCIAL HISTORY Never Assessed REASON FOR VISIT Controlled Med Refill 10/26/17 PLAN OF CARE VITAL SIGNS MEDICATIONS Medication Instructions Dosage Frequency Start Date End Date Duration Status Percocet 10-325 MG Orally 5 times per day 1 tablet as needed Sep, 28 days Active RESULTS No Results PROCEDURES No Known procedures INSTRUCTIONS MEDICATIONS ADMINISTERED No Known Medications MEDICAL (GENERAL) HISTORY Type Description Date Medical History chronic pain Medical History arthritis Surgical History Nephrectomy - age 3 Surgical History Appendectomy Hospitalization History surgery Hospitalization History childbirth x 3
--- OUTSIDE RECORDS SUMMARY | 2018-06-07 13:24 | XMS REPORT ---
Author Author PADMAJA MORGAN [facility] [address] Address [address] [place] [address] Care Team Providers Care Income Tax Auditor Name Role Phone PADMAJA MORGAN Unavailable PROBLEMS Type Condition ICD9-CM Code [id number] Code Onset Dates Condition Status SNOMED Code Problem Scoliosis (and kyphoscoliosis), idiopathic M41.20 Active 10301077 Problem Myalgia M79.1 Active 71771575 Problem Other chronic pain G89.29 Active 88018612 Problem Urinary urgency R39.15 Active 16730240 Problem Dysthymia F34.1 Active 05564349 Problem Varicose veins I86.8 Active 551415226 Problem Need for prophylaxis against urinary tract infection Z29.8 Active 838861652 Problem Abnormal mammogram of left breast R92.8 Active 355586003 Problem Scoliosis, unspecified scoliosis type, unspecified spinal region M41.9 Active 791290500 Problem Arthralgia M25.50 Active 81531080 Problem Calculus of gallbladder without cholecystitis without obstruction K80.20 Active 860463048 Problem Major depressive disorder, single episode, unspecified F32.9 Active 51650323 ALLERGIES Substance Reaction Event Type Date Status Sulfamethoxazole-Trimethoprim Unknown Drug Allergy Aug, Active Aspirin Unknown Drug Allergy Aug, Active ENCOUNTERS Encounter Location Date Diagnosis [place] [id number] [place] [address] 20116- 6976 Jan, [place] [id number] [place] [address] 98021- 8833 Dec, Other chronic pain G89.29 and Myalgia M79.1 [place] [id number] [address] 9742 Dec, Impacted cerumen, right ear H61.21 and Dysfunction of right eustachian tube H69.81 [place] [address] [address] 16[address] Nov, Myalgia M79.1 and Other chronic pain G89.29 [facility] [id number] [place] [address] 63495- 5638 October, Other chronic pain G89.29 and Myalgia M79.1 [facility] [id number] [place] [address] 41633- 9082 Sep, Other chronic pain G89.29 [facility] [id number] [place] [address] 38626- 6322 Aug, Other chronic pain G89.29 [place] [id number] [place] [address] 79108- 1598 Aug, Scoliosis (and kyphoscoliosis), idiopathic M41.20 [place] [id number] [place] [address] 48965- 8956 Aug, [place] [id number] [place] [address] 54775- 1830 Aug, Dysuria R30.0 ; Scoliosis, unspecified scoliosis type, unspecified spinal region M41.9 ; Encounter for therapeutic drug level monitoring Z51.81 and Alcohol use Z78.9 [place] [id number] [place] [address] 63467- 9034 Aug, Other chronic pain G89.29 [place] [id number] [place] [address] 86768- 1639 Jul, Chronic urinary tract infection N39.0 [place] [id number] [place] [address] 06850- 3759 Jul, Other chronic pain G89.29 [facility] [id number] [place] [address] 57708- 3766 Jun, [place] [id number] [place] [address] 73399- 0984 Jun, [place] [id number] [place] [address] 74011- 2820 Jun, Acute left-sided thoracic back pain M54.6 [facility] [id number] [place] [address] 49408 -8181 Jun, Cough R05 and Acute bilateral thoracic back pain M54.6 [facility] [place] [address] [address]13 -6837 Jun, Back pain, unspecified back location, unspecified back pain laterality, unspecified chronicity M54.9 and Left flank pain R10.9 [place] [address] 95826- 6729 Jun, Other chronic pain G89.29 [place] [address] 89262- 3338 03 Jun, 2017 Myalgia M79.1 [place] [address] 35035- 0432 13 May, 2017 Other chronic pain G89.29 [place] [address] 79975- 4824 07 May, 2017 Myalgia M79.1 and Fatigue due to exposure, subsequent encounter T73.2XXD [place] [id number] [place] [address] 00845- 9506 05 May, 2017 Fatigue due to exposure, subsequent encounter T73.2XXD [place] [id number] [place] [address] 55494- 0555 15 Apr, 2017 Other chronic pain G89.29 and Myalgia M79.[address] 32361- 6348 08 Apr, 2017 Closed nondisplaced fracture of phalanx of left great toe with routine healing, unspecified phalanx, subsequent encounter S92.405D ; Dysuria R30.0 ; Localized edema R60.0 and Arthralgia M25.50 [facility] [address] [place] [address] 75114- 4250 18 Mar, 2017 Other chronic pain G89.29 and Myalgia M79.1 [facility] [id number] [place] [address] 70347- 1394 16 Mar, 2017 [facility] [id number] [place] [address] 35716- 2693 Mar, Dysuria R30.0 ; Other chronic pain G89.29 ; Scoliosis, unspecified scoliosis type, unspecified spinal region M41.9 and Chronic urinary tract infection N39.0 [place] [id number] [place] [address] 05172- 3848 Feb, Arthralgia M25.50 and Myalgia M79.1 [facility] [id number] [place] [address] 38461- 2724 Feb, [facility] [id number] [place] [address] 94400- 2036 Feb, [facility] [id number] [place] [address] 85994- 1848 Feb, Closed compression fracture of L4 lumbar vertebra with routine healing, subsequent encounter S32.040D ; Closed nondisplaced fracture of phalanx of left great toe with routine healing, unspecified phalanx, subsequent encounter S92.405D and Chronic urinary tract infection N39.0 [facility] [address] [place] [address] 62430- 7361 Jan, Closed compression fracture of fourth lumbar vertebra, initial encounter S32.040A [facility] [id number] [place] [address] 44217- 1362 Jan, Urinary tract infection, site not specified N39.0 [facility] [address] [place] [address] 62016- 0327 Jan, [facility] [id number] [place] [address] 30076- 2954 Jan, [facility] [address] [address]- 5924 Jan, Arthralgia M25.50 and Myalgia M79.1 [facility] [address] [place] [address] 10184- 0405 Jan, Need for prophylaxis against urinary tract infection Z29.8 and Urinary tract infection, site not specified N39.0 [facility] [id number] [place] [address] 01015- 3031 Dec, Urinary tract infection, site not specified N39.0 and Need for prophylaxis against urinary tract infection Z29.8 [place] [id number] [place] [address] 31958- 5251 Dec, Major depressive disorder, single episode, unspecified F32.9 ; Myalgia M79.1 ; Arthralgia M25.50 and [facility] 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 Z79.891 [place] [id number] [place] [address] 11838- 5343 Dec, Other chronic pain G89.29 and Dysuria R30.0 [place] [id number] [place] [address] 00538- 4129 Nov, [facility] 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 Z79.891 [place] [id number] [place] [address] 91772- 6720 Nov, Acute midline low back pain without sciatica M54.5 and drop man 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 Z79.891 [place] [address] [address]- 7969 Nov, [place] [id number] [place] [address] 96417- 6055 October, [place] [id number] [place] [address] 51249- 6452 October, [facility] [id number] [place] [address] 45287- 3683 Sep, Right leg pain M79.604 [place] [id number] [place] [address] 01442- 8246 Sep, [facility] [id number] [place] [address] 41958- 8395 Aug, Right leg pain M79.604 [place] [id number] [place] [address] 12149- 6829 Jul, [place] [id number] [place] [address] 00050- 8312 Jul, Arthralgia M25.50 and Right leg pain M79.604 [place] [id number] [place] [address] 44509- 3260 Jun, Arthralgia M25.50 [place] [id number] [place] [address] 16261- 9032 Jun, [place] [id number] [place] [address] 83151- 4772 Jun, Right leg pain M79.604 [place] [id number] [place] [address] 10199- 5268 Jun, Right leg pain M79.604 [place] [id number] [place] [address] 00367- 7279 Jun, Abnormal mammogram of left breast R92.8 [place] [id number] [place] [address] 55979- 8105 May, Routine gynecological examination V72.31 ; Breast cancer screening Z12.39 ; Cervical cancer screening Z12.4 ; Colon cancer screening Z12.11 and Calculus of gallbladder without cholecystitis without obstruction K80.20 [place] [address] [place] [address] 99875- 4477 May, Arthralgia M25.50 [place] [id number] [place] [address] 40349- 9848 Apr, Arthralgia M25.50 [facility] [id number] [place] [address] 18556- 7968 Apr, Screening, lipid Z13.220 [place] [id number] [place] [address] 78261- 2001 Apr, Other chronic pain G89.29 ; Scoliosis, unspecified scoliosis type, unspecified spinal region M41.9 ; Right leg pain M79.604 ; Major depressive disorder, single episode, unspecified F32.9 ; Fatigue due to exposure, subsequent encounter T73.2XXD ; Dysthymia F34.1 and Screening, lipid Z13.220 [place] [id number] [place] [address] 50821- 0270 Apr, Arthralgia M25.50 [place] [address] 92466- 4825 Mar, Dysthymia 300.4 [place] [address] 43250- 9173 Mar, Arthralgia M25.50 [place] [id number] [place] [address] 11531- 1665 Feb, Arthralgia M25.50 [place] [id number] [place] [address] 93711- 6889 Jan, Arthralgia M25.50 [place] [id number] [place] [address] 65269- 5310 Dec, 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 [place] [address] 93714- 8219 Dec, [place] [id number] [place] [address] 74084- 5492 Dec, Right leg pain M79.604 and Scoliosis, unspecified scoliosis type, unspecified spinal region M41.9 [place] [id number] [address]- 2144 Dec, Right leg pain M79.604 and Scoliosis, unspecified scoliosis type, unspecified spinal region M41.9 [facility] [address], [place] [address]- 9604 Dec, Arthralgia M25.50 [facility] [id number] [place] [address] 61053- 7159 Nov, Arthralgia M25.50 [facility] [id number] [place] [address] 50539- 6984 October, Arthralgia M25.50 and Scoliosis, unspecified scoliosis type , unspecified spinal region M41.9 [facility] [id number] [address]- 0529 Sep, [place] [id number] [place] [address] 22930- 7224 Aug, [facility] [id number] [place] [address] 23860- 6011 Aug, Arthralgia M25.50 ; Myalgia M79.1 and Scoliosis M41.9 [facility] [address] [address]- 1231 Jul, Other chronic pain G89.29 [place] [id number] [place] [address] 31461- 5114 Jul, Other chronic pain G89.29 [place] [id number] [place] [address] 11282- 7867 Jul, Impingement syndrome of both shoulders M75.41 [facility] [address] [address]- 1995 Jun, [facility] [address] [address]- 0632 Jun, [facility] [id number] [place] [address] 51090- 7288 Jun, Scoliosis (and kyphoscoliosis), idiopathic M41.20 and Other chronic pain G89.29 [facility] [id number] [place] [address] 27072 -2714 Jun, Upper respiratory tract infection, unspecified type 465.9 and Rhinorrhea J34.89 [place] [address] 38897- 1724 May, [place] [address] 81312- 1704 May, [place] [address] 86990- 6483 Apr, Dysuria R30.0 ; Urinary tract infection, site not specified N39.0 and Hematuria, unspecified R31.9 [place] [address] 86877- 5542 Apr, [place] [address] 83340- 1145 Mar, Family history of early CAD Z82.[address] 08713- 2341 Mar, Other chronic pain G89.29 [place] [id number] [place] [address] 29312- 9025 Mar, Impingement syndrome of both shoulders M75.41 [place] [id number] [place] [address] 64345- 9687 Mar, Other chronic pain G89.29 ; Dysthymia F34.1 ; Family history of early CAD Z82.49 ; Dysuria R30.0 and Other specified disorders of Eustachian tube, right ear H69.81 [place] [id number] [place] [address] 31785- 5229 Mar, [place] [address] [place] [address]- 4110 Feb, [facility] [id number] [place] [address] 59826- 3637 Jan, [facility] [id number] [place] [address] 77391- 4145 Jan, Eustachian tube dysfunction 381.81 and Dysthymia 300.4 [facility] [id number] [place] [address] 96519- 2901 Dec, [facility] [id number] [place] [address] 25833- 0727 Nov, Impingement syndrome of both shoulders 726.2 [facility] [id number] [place] [address] 81709- 0689 Nov, [facility] [id number] [place] [address] 73254- 0366 Nov, [facility] [id number] [place] [address] 69477- 7887 Nov, Urgency of urination 788.63 [facility] [id number] [place] [address] 66726- 3714 October, [facility] [id number] [place] [address] 33032- 2984 October, [facility] [id number] [place] [address] 17034- 9167 Sep, [facility] [id number] [place] [address] 02867- 2288 Sep, [facility] [id number] [place] [address] 38742- 8706 Aug, [facility] [id number] [place] [address] 90757- 3696 Aug, [facility] [id number] [place] [address] 31704- 1799 Aug, [facility] [place] [facility] [address] [id number] [place] [address]- 5719 Aug, [facility] [place] [facility] [address] [id number] [place] [address]- 2538 Aug, [facility] [place] [facility] [address] [id number] [place] [address]- 1561 Aug, [facility] [place] [facility] [address] [id number] [place] [address]- 3434 Aug, [facility] [place] [facility] [address] [id number] [place] [address]- 1936 Jul, [facility] [place] [facility] [address] [id number] [place] [address]- 9470 Jul, [facility] [place] [facility] [address] [id number] [place] [address]- 1370 Jul, [facility] [place] [facility] [address] [id number] [place] [address]- 6640 Jul, [facility] [place] [facility] [address] [id number] [place] [address]- 8131 Jul, [facility] [place] [facility] [address] [id number] [place] [address]- 3510 Jul, [facility] [place] [facility] [address] [id number] [place] [address]- 0632 Jun, [facility] [place] [facility] [address] [id number] [place] [address]- 8571 Jun, [facility] [place] [facility] [address] [id number] [place] [address]- 3969 May, [facility] [place] [facility] [address] [id number] [place] [address]- 9082 May, [facility] [place] [facility] [address] [id number] [place] [address]- 3696 May, [facility] [place] [facility] [address] [id number] [place] [address]- 5084 May, [facility] [place] [facility] [address] [id number] [place] [address]- 8171 Mar, [facility] [place] [facility] [address] [id number] [place] [address]- 1315 Mar, [facility] [place] [facility] [address] [id number] [place] [address]- 2544 Feb, [facility] [place] [facility] [address] [id number] [place] [address]- 3060 Feb, [facility] [place] [facility] [address] [id number] [place] [address]- 5648 Jan, [facility] [place] [facility] [address] [id number] [place] [address]- 1214 Jan, [facility] [place] [facility] [address] [id number] [place] [address]- 7291 Jan, [facility] [place] [facility] [address] [id number] [place] [address]- 1099 Jan, [facility] [place] [facility] [address] [id number] [place] [address]- 8289 Jan, [facility] [place] [facility] [address] [id number] [place] [address]- 0183 Nov, [facility] [place] [facility] [address] [id number] [place] [address]- 7644 Nov, [facility] [place] [facility] [address] [id number] [place] [address]- 7455 October, [facility] [place] [facility] [address] [id number] [place] [address]- 8950 October, [facility] [place] [facility] [address] [id number] [place] [address]- 3620 October, [facility] [place] [facility] [address] [id number] [place] 4181 October, [facility] [place] [facility] [address] [id number] [place] [address]- 1693 Sep, [facility] [place] [facility] [address] [id number] [place] [address]- 9261 Aug, [facility] [place] [facility] [address] [id number] [place] [address]- 7706 Aug, [facility] [place] [facility] [address] [id number] [place] [address]- 4875 Aug, [facility] [place] [facility] [address] [id number] [place] [address]- 3200 Aug, [facility] [place] [facility] [address] [id number] [place] [address]- 7245 Jul, [facility] [place] [facility] [address] [id number] [place] [address]- 7454 Jul, [facility] [place] [facility] [address] [id number] [place] [address]- 6507 Jun, [facility] [place] [facility] [address] [id number] [place] [address]- 0862 Jun, [facility] [place] [facility] [address] [id number] [place] [address]- 7966 Jun, [facility] [place] [facility] [address] [id number] [place] [address]- 3067 Jun, [facility] [place] [facility] [address] [id number] [place] [address]- 4591 Jun, [facility] [place] [facility] [address] [id number] [place] [address]- 4979 Jun, [facility] [place] [facility] [address] [id number] [place] [address]- 4194 Mar, [facility] [place] [facility] [address] [id number] [place] [address]- 7823 Mar, [facility] [place] [facility] [address] [id number] [place] [address]- 6358 Feb, [facility] [address] [id number] [place] [address]- 1670 Feb, [facility] [place] [facility] [address] [id number] [place] [address]- 3274 Feb, [facility] [place] [facility] [address] [id number] [place] [address]- 2299 Jan, [facility] [place] [facility] [address] [id number] [place] [address] Jan, [facility] [place] [facility] [address] [id number] [place] [address] Dec, [facility] [address] [id number] [place] [address] Nov, [facility] [address] [id number] [place] [address] Sep, [facility] [place] [facility] [address] [id number] [place] [address] Aug, [facility] [address] [id number] [place] [address] Aug, [facility] [place] [facility] [address] [id number] [place] [address] Aug, [facility] [address] [id number] [place] [address] Jul, [facility] [place] [facility] [address] [id number] [place] [address] Jul, [facility] [place] [facility] [address] [id number] [place] [address] Jul, [facility] [place] [facility] [address] [id number] [place] [address] Jul, [facility] [place] [facility] [address] [id number] [place] [address] Jul, [facility] [place] [facility] [address] [id number] [place] [address] Apr, [facility] [place] [facility] [address] [id number] [place] [address] Apr, [facility] [place] [facility] [address] [id number] [place] [address] Jan, [facility] [place] [facility] [address] [id number] [place] [address] Jan, [facility] [place] [facility] [address] [id number] [place] [address] Dec, [facility] [place] [facility] [address] [id number] [place] [address] Dec, [facility] [place] [facility] [address] [id number] [place] [address] Dec, [facility] [place] [facility] [address] [id number] [place] [address] Dec, [facility] [place] [facility] [address] [id number] [place] [address] Dec, [facility] [place] [facility] [address] [id number] [place] [address] October, [facility] [place] [facility] [address] [id number] [place] [address] Aug, [facility] [place] [facility] [address] [id number] [place] [address] Aug, [facility] [place] [facility] [address] [id number] [place] [address] Aug, [facility] [place] [facility] [address] [id number] [place] [address] Jul, [facility] [place] [facility] [address] [id number] [place] [address] May, [facility] [place] [facility] [address] [id number] [place] [address] Apr, [facility] [address] [facility] [id number] [place] [address] May, [facility] [address] [facility] [id number], [place] [address] May, [facility] [address] [facility] [id number], [place] [address] May, [facility] [address] [facility] [id number], [place] [address] Mar, [facility] [address] [facility] [id number], [place] [address] Mar, [facility] [address] [facility] [facility] [id number] [id number] Aug, IMMUNIZATIONS No Known Immunizations SOCIAL HISTORY Never Assessed REASON FOR VISIT Pain Management Consult - SARAH Vega, 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, Swollen and painful joints all over body, espeically in hands PLAN OF CARE Activity Details Follow Up with PCP Reason: VITAL SIGNS Height 66.5 in 2017-09-21 Weight 174.2 lbs 2017-09-21 Temperature 97.8 degrees Fahrenheit 2017-09-21 Heart Rate 60 bpm 2017-09-21 Respiratory Rate 16 2017-09-21 BMI 27.69 kg/m2 2017-09-21 Blood pressure systolic 110 mmHg 2017-09-21 Blood pressure diastolic 68 mmHg 2017-09-21 MEDICATIONS Medication Instructions Dosage Frequency Start Date End Date Duration Status Premarin 0.625 MG/GM Vaginal 3 times a week as directed Mar, Not-Taking Promethazine-Codeine 6.25-10 MG/5ML Orally every 6 hrs 5 ml as needed 6h Jun, Not-Taking Vitamin D3 44359 UNIT Orally once weekly 1 capsule May, Active Macrobid 100 MG Orally Once a day 1 capsule with food 24h Dec, 30 days Active Percocet 10-325 MG Orally 5 times per day 1 tablet as needed Aug, 28 days Active Lyrica 150 MG Orally 3 times a day 1 capsule 8h Apr, 30 days Active Fluoxetine HCl 40 mg Orally Once a day 1 capsule 24h Dec, 30 days Active RESULTS No Results PROCEDURES Procedure Date Ordered Result Body Site COMPREHEN METABOLIC PANEL September 21, 2017 C-REACTIVE PROTEIN September 21, 2017 X-RAY EXAM OF HAND September 21, 2017 X-RAY EXAM OF WRIST September 21, 2017 RHEUMATOID FACTOR, QUANT September 21, 2017 RBC SED RATE, AUTOMATED September 21, 2017 ANTINUCLEAR ANTIBODIES September 21, 2017 CCP ANTIBODY September 21, 2017 INSTRUCTIONS MEDICATIONS ADMINISTERED No Known Medications MEDICAL (GENERAL) HISTORY Type Description Date Medical History chronic pain Medical History arthritis Surgical History Nephrectomy - age 3 Surgical History Appendectomy Hospitalization History surgery Hospitalization History childbirth x 3
--- OUTSIDE RECORDS SUMMARY | 2018-06-07 13:25 | XMS REPORT ---
Author Author CHUY NGUYEN Organization [facility] Address [address] [place] [address] Care Team Providers Care Clinical Resource Manager Name Role Phone CHUY NGUYEN Unavailable PROBLEMS Type Condition ICD9-CM Code [id number] Code Onset Dates Condition Status SNOMED Code Problem Scoliosis (and kyphoscoliosis), idiopathic M41.20 Active 40311876 Problem Myalgia M79.1 Active 29356977 Problem Other chronic pain G89.29 Active 19168050 Problem Urinary urgency R39.15 Active 83887398 Problem Dysthymia F34.1 Active 29024736 Problem Varicose veins I86.8 Active 687878511 Problem Need for prophylaxis against urinary tract infection Z29.8 Active 371041675 Problem Abnormal mammogram of left breast R92.8 Active 527633810 Problem Scoliosis, unspecified scoliosis type, unspecified spinal region M41.9 Active 517169196 Problem Arthralgia M25.50 Active 69867787 Problem Calculus of gallbladder without cholecystitis without obstruction K80.20 Active 723416981 Problem Major depressive disorder, single episode, unspecified F32.9 Active 20930251 ALLERGIES Substance Reaction Event Type Date Status Sulfamethoxazole-Trimethoprim Unknown Drug Allergy Aug, Active Aspirin Unknown Drug Allergy Aug, Active ENCOUNTERS Encounter Location Date Diagnosis [facility] [id number] [address] Jan, [place] [id number] [place] [address] 08336- 9412 Dec, Impacted cerumen, right ear H61.21 and Dysfunction of right eustachian tube H69.81 [facility] [id number], [place] [address] Nov, Myalgia M79.1 and Other chronic pain G89.29 [facility] [id number] [place] [address] 66592- 4839 October, Other chronic pain G89.29 and Myalgia M79.1 [facility] [id number] [place] [address] 14623- 3564 Sep, Other chronic pain G89.29 [place] [id number] [place] [address] 92090- 7859 Aug, Other chronic pain G89.29 [facility] [id number] [place] [address] 79978- 8816 Aug, Scoliosis (and kyphoscoliosis), idiopathic M41.20 [place] [id number] [place] [address] 16057- 9449 Aug, [place] [id number] [place] [address] 77777- 4357 Aug, Dysuria R30.0 ; Scoliosis, unspecified scoliosis type, unspecified spinal region M41.9 ; Encounter for therapeutic drug level monitoring Z51.81 and Alcohol use Z78.9 [place] [id number] [place] [address] 36917- 7435 Aug, Other chronic pain G89.29 [place] [id number] [place] [address] 70907- 6044 Jul, Chronic urinary tract infection N39.0 [place] [id number] [place] [address] 19905- 6646 Jul, Other chronic pain G89.29 [facility] [id number] [place] [address] 84188- 0325 Jun, [place] [id number] [place] [address] 09850- 7111 Jun, [facility] [id number] [place] [address] 16872- 8660 Jun, Acute left-sided thoracic back pain M54.6 [facility] [id number] [place] [address] 24556 -3013 18 Jun, 2017 Cough R05 and Acute bilateral thoracic back pain M54.6 [facility] [id number] [place] [address] 25536 -8277 15 Jun, 2017 Back pain, unspecified back location, unspecified back pain laterality, unspecified chronicity M54.9 and Left flank pain R10.9 [place] [address] 83018- 3258 10 Jun, 2017 Other chronic pain G89.29 [place] [address] 47692- 8362 03 Jun, 2017 Myalgia M79.1 [place] [address] 99683- 6709 13 May, 2017 Other chronic pain G89.29 [place] [address] 92888- 3099 07 May, 2017 Myalgia M79.1 and Fatigue due to exposure, subsequent encounter T73.2XXD [place] [address] 30361- 3328 05 May, 2017 Fatigue due to exposure, subsequent encounter T73.2XXD [place] [id number] [place] [address] 93952- 1482 15 Apr, 2017 Other chronic pain G89.29 and Myalgia M79.1 [place] [address] 49767- 9121 08 Apr, 2017 Closed nondisplaced fracture of phalanx of left great toe with routine healing, unspecified phalanx, subsequent encounter S92.405D ; Dysuria R30.0 ; Localized edema R60.0 and Arthralgia M25.50 [place] [id number] [place] [address] 47549- 6243 Mar, Other chronic pain G89.29 and Myalgia M79.1 [facility] [id number] [place] [address] 69085- 6049 Mar, [facility] [id number] [place] [address] 87821- 0761 Mar, Dysuria R30.0 ; Other chronic pain G89.29 ; Scoliosis, unspecified scoliosis type, unspecified spinal region M41.9 and Chronic urinary tract infection N39.0 [facility] [id number] [place] [address] 58070- 8957 Feb, Arthralgia M25.50 and Myalgia M79.1 [place] [id number] [place] [address] 95209- 9650 Feb, [place] [id number] [place] [address] 58182- 2413 Feb, [place] [id number] [place] [address] 74181- 9540 Feb, Closed compression fracture of L4 lumbar vertebra with routine healing, subsequent encounter S32.040D ; Closed nondisplaced fracture of phalanx of left great toe with routine healing, unspecified phalanx, subsequent encounter S92.405D and Chronic urinary tract infection N39.0 [place] [id number] [place] [address] 21192- 2544 Jan, Closed compression fracture of fourth lumbar vertebra, initial encounter S32.040A [place] [id number] [place] [address] 32501- 1505 Jan, Urinary tract infection, site not specified N39.0 [facility] [id number] [place] [address] 66203- 1210 Jan, [facility] [id number] [place] [address] 58467- 6306 Jan, [facility] [id number] [place] [address] 48204- 8227 Jan, Arthralgia M25.50 and Myalgia M79.1 [place] [address] [place] [address] 28953- 0710 Jan, Need for prophylaxis against urinary tract infection Z29.8 and Urinary tract infection, site not specified N39.0 [place] [address] [place] [address] 91702- 1576 Dec, Urinary tract infection, site not specified N39.0 and Need for prophylaxis against urinary tract infection Z29.8 [place] [id number] [place] [address] 72847- 7528 Dec, Major depressive disorder, single episode, unspecified F32.9 ; Myalgia M79.1 ; Arthralgia M25.50 and senior care 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 Z79.891 [place] [id number] [place] [address] 59526- 3967 Dec, Other chronic pain G89.29 and Dysuria R30.0 [place] [id number] [place] [address] 27403- 1985 Nov, senior care 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 Z79.891 [place] [id number] [place] [address] 96254- 6045 Nov, Acute midline low back pain without sciatica M54.5 and senior care 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 Z79.891 [place] [id number] [place] [address] 70245- 4233 Nov, [place] [id number] [place] [address] 23895- 1178 October, [place] [id number] [place] [address] 60675- 8133 October, [place] [id number] [place] [address] 72491- 0906 Sep, Right leg pain M79.604 [place] [id number] [place] [address] 24858- 7772 Sep, [facility] [address] [place] [address] 31597- 4620 Aug, Right leg pain M79.604 [facility] [id number] [place] [address] 33623- 7327 Jul, [facility] [id number] [place] [address] 59069- 5625 Jul, Arthralgia M25.50 and Right leg pain M79.604 [facility] [id number] [place] [address] 61245- 7071 Jun, Arthralgia M25.50 [place] [id number] [place] [address] 49676- 4224 Jun, [place] [id number] [place] [address] 86151- 9337 Jun, Right leg pain M79.604 [facility] [id number] [place] [address] 12117- 5188 Jun, Right leg pain M79.604 [place] [id number] [place] [address] 68813- 7812 Jun, Abnormal mammogram of left breast R92.8 [place] [address] [place] [address] 41220- 4644 May, Routine gynecological examination V72.31 ; Breast cancer screening Z12.39 ; Cervical cancer screening Z12.4 ; Colon cancer screening Z12.11 and Calculus of gallbladder without cholecystitis without obstruction K80.20 [place] [id number] [place] [address] 47228- 8604 May, Arthralgia M25.50 [facility] [id number] [place] [address] 09917- 3572 Apr, Arthralgia M25.50 [facility] [id number] [place] [address] 31325- 5015 Apr, Screening, lipid Z13.220 [place] [id number] [place] [address] 01303- 9778 Apr, Other chronic pain G89.29 ; Scoliosis, unspecified scoliosis type, unspecified spinal region M41.9 ; Right leg pain M79.604 ; Major depressive disorder, single episode, unspecified F32.9 ; Fatigue due to exposure, subsequent encounter T73.2XXD ; Dysthymia F34.1 and Screening, lipid Z13.220 [place] [id number] [place] [address] 36132- 8786 Apr, Arthralgia M25.50 [place] [id number] [place] [address] 91467- 1037 Mar, Dysthymia 300.4 [place] [id number] [place] [address] 86611- 3035 Mar, Arthralgia M25.50 [place] [id number] [place] [address] 63756- 4056 Feb, Arthralgia M25.50 [place] [id number] [place] [address] 33354- 3495 Jan, Arthralgia M25.50 [place] [id number] [place] [address] 60162- 3965 Dec, 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 [place] [id number] [place] [address] 54077- 0597 Dec, [place] [id number] [place] [address] 89045- 0603 Dec, Right leg pain M79.604 and Scoliosis, unspecified scoliosis type, unspecified spinal region M41.9 [facility] [id number] [place] [address] 90249- 0353 Dec, Right leg pain M79.604 and Scoliosis, unspecified scoliosis type, unspecified spinal region M41.9 [facility] [id number] [place] [address] 17203- 5362 Dec, Arthralgia M25.50 [facility] [id number] [place] [address] 34295- 3839 Nov, Arthralgia M25.50 [place] [address] 45208- 9275 October, Arthralgia M25.50 and Scoliosis, unspecified scoliosis type , unspecified spinal region M41.9 [facility] [id number] [place] [address] 00162- 5402 Sep, [place] [address] 21802- 1542 Aug, [place] [address] 75265- 9597 Aug, Arthralgia M25.50 ; Myalgia M79.1 and Scoliosis M41.9 [place] [id number] [place] [address] 56088- 4143 Jul, Other chronic pain G89.29 [place] [id number] [place] [address] 17877- 5678 Jul, Other chronic pain G89.29 [place] [id number] [place] [address] 82480- 4416 Jul, Impingement syndrome of both shoulders M75.41 [facility] [id number] [place] [address] 97297- 2321 Jun, [facility] [address] 55471- 2717 Jun, [facility] [id number] [place] [address] 61319- 8410 Jun, Scoliosis (and kyphoscoliosis), idiopathic M41.20 and Other chronic pain G89.29 [facility] [address], [place] [address] Jun, Upper respiratory tract infection, unspecified type 465.9 and Rhinorrhea J34.89 [facility] [id number] [place] [address] 07986- 0497 May, [facility] [id number] [place] [address] 97674- 0389 May, [facility] [id number] [place] [address] 31455- 9804 Apr, Dysuria R30.0 ; Urinary tract infection, site not specified N39.0 and Hematuria, unspecified R31.9 [facility] [id number] [place] [address] 19766- 9457 Apr, [place] [id number] [place] [address] 36706- 5221 Mar, Family history of early CAD Z82.49 [place] [id number] [place] [address] 34033- 2942 Mar, Other chronic pain G89.29 [place] [id number] [place] [address] 04108- 5762 Mar, Impingement syndrome of both shoulders M75.41 [place] [id number] [place] [address] 34550- 6203 Mar, Other chronic pain G89.29 ; Dysthymia F34.1 ; Family history of early CAD Z82.49 ; Dysuria R30.0 and Other specified disorders of Eustachian tube, right ear H69.81 [place] [id number] [place] [address] 78819- 1564 Mar, [facility] [id number] [place] [address] 18360- 2112 Feb, [facility] [id number] [place] [address] 67718- 1754 Jan, [facility] [address] 1138 Jan, Eustachian tube dysfunction 381.81 and Dysthymia 300.4 [facility] [id number], [place] [address] 2546 Dec, [facility] [id number] [place] [address] 131159- 2816 Nov, Impingement syndrome of both shoulders 726.2 [facility] [address], [place] [address]- 5718 Nov, [facility] [id number] [place] [address] 912830- 8969 Nov, [facility] [address], [place] [address]- 7148 Nov, Urgency of urination 788.63 [facility] [address], [place] [address]- 4801 October, [facility] [address], [place] [address]- 1859 October, [facility] [address], [place] [address]- 2569 Sep, [facility] [address], [place] [address]- 7775 Sep, [facility] [address] [address]- 3706 Aug, [facility] [address] 3311 Aug, [facility] [address] 9803 Aug, [facility] [address]- 6912 Aug, [facility] [id number] [place] [address]- 5821 Aug, [facility] [place] [facility] [address] [id number] [place] [address]- 4988 Aug, [facility] [place] [facility] [address] [id number] [place] [address]- 8056 Aug, [facility] [place] [facility] [address] [id number] [place] [address]- 9535 Jul, 2014 [facility] [place] [facility] [address] [id number] [place] [address]- 0783 Jul, 2014 [facility] [place] [facility] [address] [id number] [place] [address]- 6743 Jul, 2014 [facility] [place] [facility] [address] [facility] [id number] [place] [address]- 8270 Jul, 2014 [facility] [place] [facility] [address] [id number] [place] [address]- 0928 Jul, [facility] [place] [facility] [address] [id number] [place] [address]- 1818 Jul, [facility] [place] [facility] [address] [facility] [id number] [place] [address]- 7384 Jun, [facility] [place] [facility] [address] [facility] [id number] [place] [address]- 5969 Jun, [facility] [place] [facility] [address] [facility] [id number] [place] [address]- 0672 May, [facility] [place] [facility] [address] [id number] [place] [address]- 0531 May, [facility] [place] [facility] [address] [id number] [place] [address]- 1602 May, [facility] [place] [facility] [address] [facility] [id number] [place] [address]- 2716 May, [facility] [place] [facility] [address] [id number] [place] [address]- 8448 Mar, [facility] [place] [facility] [address] [id number] [place] [address]- 2685 Mar, [facility] [place] [facility] [address] [id number] [place] [address]- 5313 Feb, [facility] [place] [facility] [address] [id number] [place] [address]- 2377 Feb, [facility] [place] [facility] [address] [id number] [place] [address]- 3048 Jan, [facility] [place] [facility] [address] [id number] [place] [address]- 9043 Jan, [facility] [place] [facility] [address] [id number] [place] [address]- 6172 Jan, [facility] [place] [facility] [address] [id number] [place] [address]- 5528 Jan, [facility] [place] [facility] [address] [id number] [place] [address]- 2182 Jan, [facility] [place] [facility] [address] [id number] [place] [address]- 6651 Nov, [facility] [place] [facility] [address] [id number] [place] [address]- 1710 Nov, [facility] [place] [facility] [address] [id number] [place] [address]- 5314 October, [facility] [place] [facility] [address] [id number] [address]- 9212 October, [facility] [place] [facility] [address] [id number] [place] [address]- 2617 October, [facility] [place] [facility] [address] [id number] [place] [address]- 1007 October, [facility] [place] [facility] [address] [id number] [place] [address]- 3605 Sep, [facility] [place] [facility] [address] [id number] [place] [address]- 2342 Aug, [facility] [place] [facility] [address] [id number] [place] [address]- 3327 Aug, [facility] [place] [facility] [address] [id number] [place] 6103 Aug, [facility] [place] [facility] [address] [id number] [place] [address]- 4732 Aug, [facility] [place] [facility] [address] [id number] [place] [address]- 4185 Jul, [facility] [place] [facility] [address] [id number] [place] [address]- 7383 Jul, [facility] [place] [facility] [address] [id number] [place] [address]- 8207 Jun, [facility] [place] [facility] [address] [id number] [place] [address]- 8430 Jun, [facility] [place] [facility] [address] [id number] [place] [address]- 0907 Jun, [facility] [place] [facility] [address] [id number] [place] [address]- 2561 Jun, [facility] [place] [facility] [address] [id number] [place] [address]- 4100 Jun, [facility] [place] [facility] [address] [id number] [place] [address]- 5686 Jun, [facility] [place] [facility] [address] [id number] [place] [address]- 3226 Mar, [facility] [place] [facility] [address] [id number] [place] [address]- 0986 Mar, [facility] [place] [facility] [address] [id number] [place] [address]- 3762 Feb, [facility] [place] [facility] [address] [id number] [place] [address]- 5326 Feb, [facility] [place] [facility] [address] [id number] [place] [address]- 2288 09 Feb, 2013 [facility] [address] [id number] [place] [address]- 3214 Jan, [facility] [place] [facility] [address] [id number] [place] [address]- 4813 Jan, [facility] [place] [facility] [address] [id number] [place] [address]- 3405 Dec, [facility] [address] [id number] [place] [address]- 1503 Nov, [facility] [place] [facility] [address] [id number] [place] [address]- 2331 Sep, [facility] [address] [id number] [place] [address] Aug, [facility] [place] [facility] [address] [id number] [place] [address] Aug, [facility] [place] [facility] [address] [id number] [place] [address] Aug, [facility] [place] [facility] [address] [id number] [place] [address] Jul, [facility] [place] [facility] [address] [id number] [place] [address] Jul, [facility] [place] [facility] [address] [id number] [place] [address] Jul, [facility] [place] [facility] [address] [id number] [place] [address] Jul, [facility] [place] [facility] [address] [id number] [place] [address] Jul, [facility] [place] [facility] [address] [id number] [place] [address] Apr, [facility] [place] [facility] [address] [id number] [place] [address] Apr, [facility] [address] [id number] [place] [address] Jan, [facility] [place] [facility] [address] [id number] [place] [address] Jan, [facility] [place] [facility] [address] [id number] [place] [address] Dec, [facility] [place] [facility] [address] [id number] [place] [address] Dec, [facility] [place] [facility] [address] [id number] [place] [address] Dec, [facility] [place] [facility] [address] [id number] [place] [address] Dec, [facility] [place] [facility] [address] [id number] [place] [address] Dec, [facility] [place] [facility] [address] [id number] [place] [address] October, [facility] [place] [facility] [address] [id number] [place] [address] Aug, [facility] [place] [facility] [address] [id number] [place] [address] Aug, [facility] [place] [facility] [address] [id number] [place] [address] Aug, [facility] [place] [facility] [address] [id number] [place] [address] Jul, [facility] [place] [facility] [address] [id number] [place] [address] May, [facility] [place] [facility] [address] [id number] [place] [address] Apr, [facility] [place] [facility] [address] [id number] [place] [address] May, [facility] [address] [facility] [id number] [address] May, [facility] [address] [id number], [place] [address] May, [facility] [address] [facility] [id number], [place] [address] Mar, [facility] [id number], [place] [address] Mar, [facility] [address] [facility] [id number], [place] [address] Aug, IMMUNIZATIONS No Known Immunizations SOCIAL HISTORY Never Assessed REASON FOR VISIT Pain management (chronic)-Briana DORAN, PT also has painful urination PLAN OF CARE Activity Details Follow Up 6 Months Reason:pain mgmt VITAL SIGNS Height 66.5 in 2017-09-04 Weight 173.0 lbs 2017-09-04 Temperature 97.7 degrees Fahrenheit 2017-09-04 Heart Rate 68 bpm 2017-09-04 Respiratory Rate 18 2017-09-04 BMI 27.50 kg/m2 2017-09-04 Blood pressure systolic 98 mmHg 2017-09-04 Blood pressure diastolic 62 mmHg 2017-09-04 MEDICATIONS Medication Instructions Dosage Frequency Start Date End Date Duration Status Lyrica 150 MG Orally 3 times a day 1 capsule 8h Apr, 30 days Active Vitamin D3 13265 UNIT Orally once weekly 1 capsule May, Active Premarin 0.625 MG/GM Vaginal 3 times a week as directed Mar, Not-Taking Percocet 10-325 MG Orally 5 times per day 1 tablet as needed Aug, 28 days Active Macrobid 100 MG Orally Once a day 1 capsule with food 24h Dec, 30 days Active Fluoxetine HCl 40 mg Orally Once a day 1 capsule 24h Dec, 30 days Active Promethazine-Codeine 6.25-10 MG/5ML Orally every 6 hrs 5 ml as needed 6h Jun, Not-Taking Parafon Forte DSC 500 mg Orally 2 times a day 1 tablet 12h Jun, Aug, 30 day(s) Not-Taking RESULTS Name Result Date Reference Range UA LONG DIP (IN HOUSE) 2017-09-04 Lot # [id number] Exp date 03/2018 Clarity clear Color yellow Odor none GLU negative MAIKEL negative KET negative SG <=1.005 BLO trace-lysed pH 5.5 Protein negative URO 0.2 NIT negative SLIM trace Lot # Exp date [employer] 2017-09-04 PROCEDURES Procedure Date Ordered Result Body Site URINALYSIS, AUTO, W/O SCOPE September 04, 2017 No Charge September 04, 2017 INSTRUCTIONS MEDICATIONS ADMINISTERED No Known Medications MEDICAL (GENERAL) HISTORY Type Description Date Medical History chronic pain Medical History arthritis Surgical History Nephrectomy - age 3 Surgical History Appendectomy Hospitalization History surgery Hospitalization History childbirth x 3
--- OUTSIDE RECORDS SUMMARY | 2018-06-07 13:25 | XMS REPORT ---
Author Author CHUY NGUYEN [facility] Address [address] [place] [address] Care Team Providers Care Assistant Food Service Manager Name Role Phone CHUY NGUYEN Unavailable PROBLEMS Type Condition ICD9-CM Code TBB44-AU Code Onset Dates Condition Status SNOMED Code Problem Scoliosis (and kyphoscoliosis), idiopathic M41.20 Active 42069778 Problem Myalgia M79.1 Active 20111669 Problem Other chronic pain G89.29 Active 67770682 Problem Urinary urgency R39.15 Active 38463710 Problem Dysthymia F34.1 Active 23944236 Problem Varicose veins I86.8 Active 760641574 Problem Need for prophylaxis against urinary tract infection Z29.8 Active 910823904 Problem Abnormal mammogram of left breast R92.8 Active 305860587 Problem Scoliosis, unspecified scoliosis type, unspecified spinal region M41.9 Active 129390324 Problem Arthralgia M25.50 Active 90003423 Problem Calculus of gallbladder without cholecystitis without obstruction K80.20 Active 831258672 Problem Major depressive disorder, single episode, unspecified F32.9 Active 85584211 ALLERGIES No Information ENCOUNTERS Encounter Location Date Diagnosis [place] [id number] [place] [address] 37688- 9810 Jan, [id number] [place] [address] 82785- 5457 Dec, Other chronic pain G89.29 and Myalgia M79.1 [place] [id number] [place] [address] 96199- 7273 Dec, Impacted cerumen, right ear H61.21 and Dysfunction of right eustachian tube H69.[id number] [place] [address] 16132- 0110 Nov, Myalgia M79.1 and Other chronic pain G89.29 [facility] [address] [place] [address] [id number] [place] [address] 13618- 0534 October, Other chronic pain G89.29 and Myalgia M79.1 [facility] [id number] [place] [address] 07873- 2274 Sep, Other chronic pain G89.29 [facility] [address] [place] [id number] [place] [address] 34760- 5534 Aug, Other chronic pain G89.29 [facility] [address] [place] [id number] [place] [address] 45096- 7714 Aug, Scoliosis (and kyphoscoliosis), idiopathic M41.20 [place] [address] [place] [id number] [place] [address] 00334- 2621 Aug, [facility] [address] [place] [id number] [place] [address] 06286- 1585 Aug, Dysuria R30.0 ; Scoliosis, unspecified scoliosis type, unspecified spinal region M41.9 ; Encounter for therapeutic drug level monitoring Z51.81 and Alcohol use Z78.9 [facility] [address] [place] [address] [id number] [place] [address] 14057- 0055 Aug, Other chronic pain G89.29 [facility] [address] [place] [id number] [place] [address] 49715- 2476 Jul, Chronic urinary tract infection N39.0 [facility] [address] [place] [address] [id number] [place] [address] 83864- 9684 Jul, Other chronic pain G89.29 [facility] [address] [place] [id number] [place] [address] 81445- 8600 Jun, [facility] [address] [place] [id number] [place] [address] 13495- 3210 Jun, [facility] [id number] [place] [address] 55820- 5368 Jun, Acute left-sided thoracic back pain M54.6 [facility] [id number] [place] [address] 70542 -4961 18 Jun, 2017 Cough R05 and Acute bilateral thoracic back pain M54.6 [facility] [address] [place] [id number] [place] [address] 65509 -1278 15 Jun, 2017 Back pain, unspecified back location, unspecified back pain laterality, unspecified chronicity M54.9 and Left flank pain R10.9 [place] [address] 05365- 0571 Jun, Other chronic pain G89.29 [place] [address] 50307- 1728 03 Jun, 2017 Myalgia M79.1 [place] [address] 06974- 1098 13 May, 2017 Other chronic pain G89.29 [place] [address] 89158- 1735 07 May, 2017 Myalgia M79.1 and Fatigue due to exposure, subsequent encounter T73.2XXD [place] [address] [place] [id number] [place] [address] 06266- 2600 05 May, 2017 Fatigue due to exposure, subsequent encounter T73.2XXD [place] [address] [place] [id number] [place] [address] 48549- 2962 15 Apr, 2017 Other chronic pain G89.29 and Myalgia M79.1 [place] [address] [place] [id number] [place] [address] 16726- 0087 08 Apr, 2017 Closed nondisplaced fracture of phalanx of left great toe with routine healing, unspecified phalanx, subsequent encounter S92.405D ; Dysuria R30.0 ; Localized edema R60.0 and Arthralgia M25.50 [place] [address] 66164- 5201 18 Mar, 2017 Other chronic pain G89.29 and Myalgia M79.1 [facility] [address] [place] [id number] [place] [address] 90217- 5006 Mar, [facility] [address] [place] [id number] [place] [address] 93975- 8035 Mar, Dysuria R30.0 ; Other chronic pain G89.29 ; Scoliosis, unspecified scoliosis type, unspecified spinal region M41.9 and Chronic urinary tract infection N39.0 [place] [address] [place] [id number] [place] [address] 41731- 6359 20 Feb, 2017 Arthralgia M25.50 and Myalgia M79.1 [place] [address] [place] [id number] [place] [address] 21349- 1117 Feb, [place] [address] [place] [id number] [place] [address] 01431- 4584 Feb, [facility] [address] [place] [id number] [place] [address] 45696- 2574 Feb, Closed compression fracture of L4 lumbar vertebra with routine healing, subsequent encounter S32.040D ; Closed nondisplaced fracture of phalanx of left great toe with routine healing, unspecified phalanx, subsequent encounter S92.405D and Chronic urinary tract infection N39.0 [place] [id number] [place] [address] 02388- 4733 Jan, Closed compression fracture of fourth lumbar vertebra, initial encounter S32.040A [facility] [id number] [place] [address] 89543- 6002 Jan, Urinary tract infection, site not specified N39.0 [facility] [address] [place] [id number] [place] [address] 40907- 8706 Jan, [facility] [id number] [place] [address] 90192- 3299 Jan, [facility] [address] [place] [id number] [place] [address] 15684- 0667 Jan, Arthralgia M25.50 and Myalgia M79.1 [place] [address] [place] [id number] [place] [address] 48117- 6465 Jan, Need for prophylaxis against urinary tract infection Z29.8 and Urinary tract infection, site not specified N39.0 [place] [address] [place] [id number] [place] [address] 07379- 9672 Dec, Urinary tract infection, site not specified N39.0 and Need for prophylaxis against urinary tract infection Z29.8 [place] [address] [place] [id number] [place] [address] 89622- 7634 Dec, Major depressive disorder, single episode, unspecified F32.9 ; Myalgia M79.1 ; Arthralgia M25.50 and longterm 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 Z79.891 [place] [address] [place] [id number] [place] [address] 69098- 8561 Dec, Other chronic pain G89.29 and Dysuria R30.0 [place] [address] [place] [id number] [place] [address] 95441- 4774 Nov, 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 [place] [address] [place] [id number] [place] [address] 56820- 1115 Nov, Acute midline low back pain without sciatica M54.5 and 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 [place] [id number] [place] [address] 30850- 0708 Nov, [facility] [address] [place] [id number] [place] [address] 53083- 3752 October, [facility] [address] [place] [id number] [place] [address] 64135- 0494 October, [facility] [id number] [place] [address] 55667- 3965 Sep, Right leg pain M79.604 [place] [address] [place] [id number] [place] [address] 20512- 3989 Sep, [place] [address] [place] [id number] [place] [address] 30469- 9098 Aug, Right leg pain M79.604 [place] [address] [place] [id number] [place] [address] 77975- 9256 Jul, [place] [address] 67672- 1673 Jul, Arthralgia M25.50 and Right leg pain M79.604 [place] [address] 65557- 5001 Jun, Arthralgia M25.50 [place] [address] [place] [id number] [place] [address] 64974- 2182 Jun, [place] [address] 37309- 6918 Jun, Right leg pain M79.604 [place] [address] [place] [id number] [place] [address] 12302- 8091 Jun, Right leg pain M79.604 [place] [address] [place] [id number] [place] [address] 61602- 5263 Jun, Abnormal mammogram of left breast R92.8 [place] [address] [place] [id number] [place] [address] 00343- 9488 May, Routine gynecological examination V72.31 ; Breast cancer screening Z12.39 ; Cervical cancer screening Z12.4 ; Colon cancer screening Z12.11 and Calculus of gallbladder without cholecystitis without obstruction K80.20 [place] [address] [place] [id number] [place] [address] 14091- 2604 May, Arthralgia M25.50 [place] [address] [place] [id number] [place] [address] 08100- 4392 Apr, Arthralgia M25.50 [facility] [address] [place] [id number] [place] [address] 94191- 6331 Apr, Screening, lipid Z13.220 [facility] [address] [place] [id number] [place] [address] 88224- 8624 Apr, Other chronic pain G89.29 ; Scoliosis, unspecified scoliosis type, unspecified spinal region M41.9 ; Right leg pain M79.604 ; Major depressive disorder, single episode, unspecified F32.9 ; Fatigue due to exposure, subsequent encounter T73.2XXD ; Dysthymia F34.1 and Screening, lipid Z13.220 [place] [address] [place] [id number] [place] [address] 52842- 1632 Apr, Arthralgia M25.50 [facility] [address] [place] [id number] [place] [address] 91731- 0556 Mar, Dysthymia 300.4 [place] [address] [place] [id number] [place] [address] 87224- 3074 Mar, Arthralgia M25.50 [facility] [address] [place] [id number] [place] [address] 03094- 5134 Feb, Arthralgia M25.50 [facility] [address] [place] [id number] [place] [address] 04986- 2943 Jan, Arthralgia M25.50 [facility] [address] [place] [id number] [place] [address] 17799- 2933 Dec, 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 [facility] [address] [place] [id number] [place] [address] 85317- 4530 Dec, [facility] [address] [place] [id number] [place] [address] 22020- 9576 Dec, Right leg pain M79.604 and Scoliosis, unspecified scoliosis type, unspecified spinal region M41.9 [facility] [address] [place] [id number] [place] [address] 56145- 8849 Dec, Right leg pain M79.604 and Scoliosis, unspecified scoliosis type, unspecified spinal region M41.9 [place] [address] 05590- 3601 Dec, Arthralgia M25.50 [place] [address] 38404- 7999 Nov, Arthralgia M25.50 [place] [address] 40936- 2831 October, Arthralgia M25.50 and Scoliosis, unspecified scoliosis type , unspecified spinal region M41.9 [place] [address] 33672- 5259 Sep, [place] [address] 55012- 1789 Aug, [place] [address] 01716- 8086 Aug, Arthralgia M25.50 ; Myalgia M79.1 and Scoliosis M41.9 [place] [address] 07778- 5097 Jul, Other chronic pain G89.29 [place] [address] 62970- 2715 Jul, Other chronic pain G89.29 [place] [address] 42871- 7249 Jul, Impingement syndrome of both shoulders M75.41 [place] [address] 02144- 4940 Jun, [place] [address] [place] [id number] [place] [address] 30997- 6077 Jun, [place] [address] 39163- 1744 Jun, Scoliosis (and kyphoscoliosis), idiopathic M41.20 and Other chronic pain G89.29 [facility] [address] [place] [id number] [place] [address] 13095 -4343 Jun, Upper respiratory tract infection, unspecified type 465.9 and Rhinorrhea J34.89 [facility] [address] [place] [id number] [place] [address] 08577- 7562 May, [place] [address] 23526- 6977 May, [place] [address] 11028- 8980 Apr, Dysuria R30.0 ; Urinary tract infection, site not specified N39.0 and Hematuria, unspecified R31.9 [place] [address] 39760- 8236 Apr, [place] [address] 06100- 7498 Mar, Family history of early CAD Z82.49 [place] [address] 23942- 4719 Mar, Other chronic pain G89.29 [place] [address] [place] [id number] [place] [address] 89814- 0130 Mar, Impingement syndrome of both shoulders M75.41 [place] [address] 04800- 0293 Mar, Other chronic pain G89.29 ; Dysthymia F34.1 ; Family history of early CAD Z82.49 ; Dysuria R30.0 and Other specified disorders of Eustachian tube, right ear H69.81 [place] [address] 60379- 1329 Mar, [place] [address] 75877- 1112 Feb, [place] [address]- 9295 Jan, [facility] [id number] [place] [address] 620170- 8101 Jan, Eustachian tube dysfunction 381.81 and Dysthymia 300.4 [facility] [address] [place] [place] [id number] [place] [address] 11995 2546 Dec, [facility] [address] [id number] [place] [address] 86381- 6683 Nov, Impingement syndrome of both shoulders 726.2 [facility] [address] [id number] [place] [address] 74761- 7659 Nov, [facility] [id number] [place] [address] 067363- 0349 Nov, [facility] [address] [place] [id number] [place] [address] 52123- 1478 Nov, Urgency of urination 788.63 [facility] [address] [id number] [place] [address] 88390- 9818 October, [facility] [address] [place] [id number] [place] [address] 76639- 7338 October, [facility] [address] [address]- 5115 Sep, [facility] [id number] [place] [address] 13735- 5400 Sep, [facility] [address] 0512 Aug, [facility] [address] [place] [place] [id number] [place] [address] 12915 2546 Aug, [facility] [address] 7904 Aug, [facility] [address] [place] [id number] [place] [address] 87501- 7856 Aug, [facility] [place] [facility] [address] [id number] [place] [address]- 2049 Aug, [facility] [place] [facility] [address] [id number] [place] [address]- 0516 Aug, [facility] [place] [facility] [address] [facility] [id number] [place] [address]- 0663 Aug, [facility] [place] [facility] [address] [id number] [place] [address]- 8751 Jul, 2014 [facility] [place] [facility] [address] [id number] [place] [address]- 6248 Jul, [facility] [place] [facility] [address] [facility] [id number] [place] [address]- 2741 Jul, [facility] [place] [facility] [address] [facility] [id number] [place] [address]- 1529 Jul, 2014 [facility] [place] [facility] [address] [facility] [id number] [place] [address]- 4924 Jul, [facility] [place] [facility] [address] [facility] [id number] [place] [address]- 1581 Jul, [facility] [place] [facility] [address] [facility] [id number] [place] [address]- 6491 Jun, [facility] [place] [facility] [address] [facility] [id number] [place] [address]- 6630 Jun, [facility] [place] [facility] [address] [facility] [id number] [place] [address]- 8363 May, [facility] [place] [facility] [address] [id number] [place] [address]- 7932 May, [facility] [place] [facility] [address] [facility] [id number] [place] [address]- 5864 May, [facility] [place] [facility] [address] [facility] [id number] [place] [address]- 9065 May, [facility] [place] [facility] [address] [id number] [place] [address]- 4720 Mar, [facility] [place] [facility] [address] [id number] [place] [address]- 1308 Mar, [facility] [place] [facility] [address] [id number] [place] [address]- 9344 Feb, [facility] [place] [facility] [address] [id number] [place] [address]- 3944 Feb, [facility] [place] [facility] [address] [id number] [place] [address]- 8804 Jan, [facility] [place] [facility] [address] [id number] [place] [address]- 0861 Jan, [facility] [place] [facility] [address] [id number] [place] [address]- 9405 Jan, [facility] [place] [facility] [address] [id number] [place] [address]- 6023 Jan, [facility] [place] [facility] [address] [id number] [place] [address]- 8776 Jan, [facility] [place] [facility] [address] [id number] [place] [address]- 3795 Nov, [facility] [place] [facility] [address] [id number] [place] [address]- 6703 Nov, [facility] [place] [facility] [address] [id number] [place] [address]- 8895 October, [facility] [place] [facility] [address] [id number] [place] [address]- 2053 October, [facility] [place] [facility] [address] [id number] [place] [address]- 6665 October, [facility] [place] [facility] [address] [id number] [place] 5827 October, [facility] [place] [facility] [address] [id number] [place] [address]- 9509 Sep, [facility] [place] [facility] [address] [id number] [place] [address]- 8162 Aug, [facility] [place] [facility] [address] [id number] [place] [address]- 3874 Aug, [facility] [place] [facility] [address] [facility] [id number] [place] [address]- 4797 Aug, [facility] [place] [facility] [address] [id number] [place] [address]- 9215 Aug, [facility] [place] [facility] [address] [id number] [place] [address]- 9163 Jul, [facility] [place] [facility] [address] [id number] [place] [address]- 7527 Jul, [facility] [place] [facility] [address] [id number] [place] [address]- 4611 Jun, [facility] [place] [facility] [address] [id number] [address]- 6964 Jun, [facility] [place] [facility] [address] [id number] [address]- 3698 Jun, [facility] [place] [facility] [address] [id number] [place] [address]- 3642 Jun, [facility] [place] [facility] [address] [id number] [address]- 7603 Jun, [facility] [place] [facility] [address] [id number] [address]- 2188 Jun, [facility] [place] [facility] [address] [id number] [address]- 9877 Mar, [facility] [place] [facility] [address] [id number] [address]- 6826 Mar, [facility] [place] [facility] [address] [facility] [id number] [address]- 2451 Feb, [facility] [place] [facility] [address] [id number] [place] [address]- 0853 Feb, [facility] [address] [id number] [place] [address]- 1349 Feb, [facility] [address] [id number] [place] [address] 2546 Jan, [facility] [address] [id number] [place] [address]- 7035 Jan, [facility] [address] [id number] [place] [address]- 1056 Dec, [facility] [address] [id number] [place] [address]- 9438 Nov, [facility] [address] [id number] [place] [address]- 8105 Sep, [facility] [address] [id number] [place] [address]- 1674 Aug, [facility] [address] [id number] [place] [address] Aug, [facility] [address] [id number] [place] [address] Aug, [facility] [address] [facility] [id number] [place] [address] Jul, [facility] [address] [id number] [place] [address] Jul, [facility] [address] [id number] [place] [address] Jul, [facility] [place] [facility] [address] [id number] [place] [address] Jul, [facility] [address] [id number] [place] [address] Jul, [facility] [address] [id number] [place] [address] Apr, [facility] [place] [facility] [address] [id number] [place] [address] Apr, [facility] [place] [facility] [address] [id number] [place] [address] Jan, [facility] [place] [facility] [address] [id number] [place] [address] Jan, [facility] [place] [facility] [address] [id number] [place] [address] Dec, [facility] [place] [facility] [address] [id number] [place] [address] Dec, [facility] [place] [facility] [address] [id number] [place] [address] Dec, [facility] [place] [facility] [address] [id number] [place] [address] Dec, [facility] [place] [facility] [address] [id number] [place] [address] Dec, [facility] [place] [facility] [address] [id number] [place] [address] October, [facility] [place] [facility] [address] [id number] [place] [address] Aug, [facility] [place] [facility] [address] [id number] [place] [address] Aug, [facility] [place] [facility] [address] [id number] [address] Aug, [facility] [place] [facility] [address] [id number] [place] [address] Jul, [facility] [place] [facility] [address] [id number] [place] [address] May, [facility] [place] [facility] [address] [id number] [place] [address] Apr, [facility] [place] [facility] [address] [facility] [id number] [address] May, [facility] [address] [id number] [address] May, [facility] [address] [id number] [address] May, [facility] [address] [id number] [address] Mar, [facility] [address] [id number] [address] Mar, [facility] [address] [facility] [id number] [address] Aug, IMMUNIZATIONS No Known Immunizations SOCIAL HISTORY Never Assessed REASON FOR VISIT Controlled Med Refill 09/28/17 PLAN OF CARE VITAL SIGNS MEDICATIONS Medication [...]
--- OUTSIDE RECORDS SUMMARY | 2018-06-07 13:26 | XMS REPORT ---
Author Author CHUY NGUYEN [facility] Address [address] [place] [address] Care Team Providers Care Dope Weigh Operator Name Role Phone CHUY NGUYEN Unavailable PROBLEMS Type Condition ICD9-CM Code OOL38-FG Code Onset Dates Condition Status SNOMED Code Problem Scoliosis (and kyphoscoliosis), idiopathic M41.20 Active 39704172 Problem Myalgia M79.1 Active 51716304 Problem Other chronic pain G89.29 Active 02050935 Problem Urinary urgency R39.15 Active 03402877 Problem Dysthymia F34.1 Active 34815478 Problem Varicose veins I86.8 Active 243101068 Problem Need for prophylaxis against urinary tract infection Z29.8 Active 093238895 Problem Abnormal mammogram of left breast R92.8 Active 904923745 Problem Scoliosis, unspecified scoliosis type, unspecified spinal region M41.9 Active 032135498 Problem Arthralgia M25.50 Active 12247538 Problem Calculus of gallbladder without cholecystitis without obstruction K80.20 Active 994956893 Problem Major depressive disorder, single episode, unspecified F32.9 Active 65223688 ALLERGIES No Information ENCOUNTERS Encounter Location Date Diagnosis [place] [id number] [place] [address] 26417- 2841 Sep, Other chronic pain G89.29 [facility] [id number] [place] [address] 57613- 8650 30 Aug, 2017 Other chronic pain G89.29 [place] [address] [place] [id number] [place] [address] 71143- 5414 Aug, Scoliosis (and kyphoscoliosis), idiopathic M41.20 [facility] [id number] [place] [address] 88305- 0817 Aug, [place] [address] [id number] [place] [address] 75376- 2747 12 Aug, 2017 Dysuria R30.0 ; Scoliosis, unspecified scoliosis type, unspecified spinal region M41.9 ; Encounter for therapeutic drug level monitoring Z51.81 and Alcohol use Z78.9 [place] [address] [place] [id number] [place] [address] 75789- 8247 07 Aug, 2017 Other chronic pain G89.29 [place] [address] [id number] [place] [address] 53589- 8670 Jul, Chronic urinary tract infection N39.0 [place] [address] 81862- 0086 Jul, Other chronic pain G89.29 [place] [address] [place] [id number] [place] [address] 48270- 9577 Jun, [place] [address] 06591- 9266 Jun, [place] [address] [place] [id number] [place] [address] 32201- 4572 Jun, Acute left-sided thoracic back pain M54.6 [facility] [address] [id number] [place] [address] 53017 -8795 18 Jun, 2017 Cough R05 and Acute bilateral thoracic back pain M54.6 [facility] [id number] [place] [address] 84108 -3911 15 Jun, 2017 Back pain, unspecified back location, unspecified back pain laterality, unspecified chronicity M54.9 and Left flank pain R10.9 [place] [address] [place] [id number] [place] [address] 02020- 3033 Jun, Other chronic pain G89.29 [place] [address] [id number] [place] [address] 01401- 7304 Jun, Myalgia M79.1 [place] [address] [id number] [place] [address] 55787- 8616 May, Other chronic pain G89.29 [place] [id number] [place] [address] 29390- 5371 May, Myalgia M79.1 and Fatigue due to exposure, subsequent encounter T73.2XXD [place] [address] [place] [id number] [place] [address] 56760- 9034 05 May, 2017 Fatigue due to exposure, subsequent encounter T73.2XXD [place] [address] [id number] [place] [address] 02547- 0516 15 Apr, 2017 Other chronic pain G89.29 and Myalgia M79.1 [place] [address] [id number] [place] [address] 50651- 2696 08 Apr, 2017 Closed nondisplaced fracture of phalanx of left great toe with routine healing, unspecified phalanx, subsequent encounter S92.405D ; Dysuria R30.0 ; Localized edema R60.0 and Arthralgia M25.50 [place] [address] [id number] [place] [address] 29775- 4326 Mar, Other chronic pain G89.29 and Myalgia M79.1 [place] [address] [place] [id number] [place] [address] 17432- 7975 Mar, [place] [address] [place] [id number] [place] [address] 57796- 5999 Mar, Dysuria R30.0 ; Other chronic pain G89.29 ; Scoliosis, unspecified scoliosis type, unspecified spinal region M41.9 and Chronic urinary tract infection N39.0 [place] [address] [place] [id number] [place] [address] 99625- 2846 20 Feb, 2017 Arthralgia M25.50 and Myalgia M79.1 [place] [address] [place] [id number] [place] [address] 43557- 6872 13 Feb, 2017 [facility] [address] [place] [id number] [place] [address] 08263- 9243 Feb, [place] [address] [address]- 4334 Feb, Closed compression fracture of L4 lumbar vertebra with routine healing, subsequent encounter S32.040D ; Closed nondisplaced fracture of phalanx of left great toe with routine healing, unspecified phalanx, subsequent encounter S92.405D and Chronic urinary tract infection N39.0 [place] [address] [place] [id number] [place] [address] 47732- 2720 Jan, Closed compression fracture of fourth lumbar vertebra, initial encounter S32.040A [place] [address] [place] [id number] [place] [address] 98120- 1052 Jan, Urinary tract infection, site not specified N39.0 [place] [id number] [place] [address] 46719- 4557 Jan, [place] [address] [place] [id number] [place] [address] 28023- 0069 Jan, [place] [address] [place] [address] 62963- 9524 Jan, Arthralgia M25.50 and Myalgia M79.1 [place] [id number] [place] [address] 39941- 8803 Jan, Need for prophylaxis against urinary tract infection Z29.8 and Urinary tract infection, site not specified N39.0 [place] [id number] [place] [address] 04208- 5790 Dec, Urinary tract infection, site not specified N39.0 and Need for prophylaxis against urinary tract infection Z29.8 [place] [id number] [place] [address] 95275- 6543 Dec, Major depressive disorder, single episode, unspecified F32.9 ; Myalgia M79.1 ; Arthralgia M25.50 and [facility] 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 Z79.891 [place] [address] [place] [address]- 0683 Dec, Other chronic pain G89.29 and Dysuria R30.0 [facility] [address] 94883- 1414 Nov, 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 [facility] [address] [address] [id number] [place] [address] 55147- 4596 Nov, Acute midline low back pain without sciatica M54.5 and 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 [facility] [address] [address] [id number] [place] [address] 73785- 4844 Nov, [facility] [address] 35484- 1644 October, [facility] [address] 24379- 6271 October, [facility] [address] 62727- 2476 Sep, Right leg pain M79.604 [facility] [address] 09101- 8617 Sep, [facility] [address] [address] [id number] [place] [address] 97301- 3435 Aug, Right leg pain M79.604 [facility] [address] [id number] [place] [address] 92570- 8926 Jul, [facility] [address] [address] [id number] [place] [address] 27305- 2526 Jul, Arthralgia M25.50 and Right leg pain M79.604 [facility] [address] [place] [id number] [place] [address] 123375- 6866 Jun, Arthralgia M25.50 [facility] [address] [place] [id number] [place] [address] 10443- 6726 Jun, [place] [address] [place] [id number] [place] [address] 61337- 0220 Jun, Right leg pain M79.604 [place] [address] 38208- 8644 Jun, Right leg pain M79.604 [place] [address] [place] [id number] [place] [address] 97144- 8299 Jun, Abnormal mammogram of left breast R92.[address] 61891- 2302 May, Routine gynecological examination V72.31 ; Breast cancer screening Z12.39 ; Cervical cancer screening Z12.4 ; Colon cancer screening Z12.11 and Calculus of gallbladder without cholecystitis without obstruction K80.20 [place] [id number] [place] [address] 46375- 4164 May, Arthralgia M25.[address] 93440- 3958 Apr, Arthralgia M25.[address] 97412- 9261 Apr, Screening, lipid Z13.220 [place] [id number] [place] [address] 76776- 2922 14 Apr, 2016 Other chronic pain G89.29 ; Scoliosis, unspecified scoliosis type, unspecified spinal region M41.9 ; Right leg pain M79.604 ; Major depressive disorder, single episode, unspecified F32.9 ; Fatigue due to exposure, subsequent encounter T73.2XXD ; Dysthymia F34.1 and Screening, lipid Z13.[address] 36424- 5521 Apr, Arthralgia M25.50 [place] [id number] [place] [address] 89847- 7083 Mar, Dysthymia 300.[address] [address]- 0868 Mar, Arthralgia M25.50 [facility] [address] [place] [id number] [place] [address] 92896- 2139 Feb, Arthralgia M25.50 [facility] [address] [place] [address] 22621- 4245 Jan, Arthralgia M25.50 [facility] [address] [place] [id number] [place] [address] 86120- 7412 Dec, 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 [facility] [address] [place] [id number] [place] [address] 27224- 0868 Dec, [facility] [address] [address] [id number] [place] [address] 53330- 7786 Dec, Right leg pain M79.604 and Scoliosis, unspecified scoliosis type, unspecified spinal region M41.9 [facility] [address] [place] [id number] [place] [address] 44841- 4626 Dec, Right leg pain M79.604 and Scoliosis, unspecified scoliosis type, unspecified spinal region M41.9 [facility] [address] [place] [address] 46870- 8134 Dec, Arthralgia M25.50 [facility] [address] [place] [id number] [place] [address] 77874- 3071 Nov, Arthralgia M25.50 [facility] [address] [place] [id number] [place] [address] 49956- 8091 October, Arthralgia M25.50 and Scoliosis, unspecified scoliosis type , unspecified spinal region M41.9 [facility] [address] [address]- 9262 Sep, [facility] [address] [place] [id number] [place] [address] 12147- 7217 Aug, [facility] [address] [place] [address] 22257- 2451 Aug, Arthralgia M25.50 ; Myalgia M79.1 and Scoliosis M41.9 [facility] [address] [place] [id number] [place] [address] 76686- 9822 Jul, Other chronic pain G89.29 [facility] [address] [place] [id number] [place] [address] 53973- 5919 Jul, Other chronic pain G89.29 [place] [address] [place] [id number] [place] [address] 36179- 4269 Jul, Impingement syndrome of both shoulders M75.41 [place] [address] [place] [id number] [place] [address] 33204- 7155 Jun, [place] [address] 45010- 3538 Jun, [facility] [address] [place] [id number] [place] [address] 63199- 9888 Jun, Scoliosis (and kyphoscoliosis), idiopathic M41.20 and Other chronic pain G89.29 [facility] [address] [place] [id number] [place] [address] 50101 -4697 Jun, Upper respiratory tract infection, unspecified type 465.9 and Rhinorrhea J34.89 [facility] [address] [place] [id number] [place] [address] 95581- 4808 May, [facility] [address] [place] [id number] [place] [address] 08110- 8560 May, [place] [address] 08369- 0252 Apr, Dysuria R30.0 ; Urinary tract infection, site not specified N39.0 and Hematuria, unspecified R31.9 [facility] [address] [place] [id number] [place] [address] 78580- 1538 Apr, [facility] [address] [place] [address] 59758- 9832 Mar, Family history of early CAD Z82.49 [facility] [address] [place] [id number] [place] [address] 25390- 8832 Mar, Other chronic pain G89.29 [facility] [address] [id number] [place] [address] 66806- 9257 Mar, Impingement syndrome of both shoulders M75.41 [facility] [address] [place] [id number] [place] [address] 84648- 1714 Mar, Other chronic pain G89.29 ; Dysthymia F34.1 ; Family history of early CAD Z82.49 ; Dysuria R30.0 and Other specified disorders of Eustachian tube, right ear H69.81 [facility] [address] [place] [id number] [place] [address] 67175- 8433 Mar, [facility] [address] [id number] [place] [address] 17580- 1123 Feb, [facility] [address] [id number] [place] [address] 92060- 0601 Jan, [facility] [address] [id number] [place] [address] 74584- 2731 Jan, Eustachian tube dysfunction 381.81 and Dysthymia 300.4 [facility] [address] [place] [id number] [place] [address] 63600- 2804 Dec, [facility] [address] [place] [id number] [place] [address] 19027- 2412 Nov, Impingement syndrome of both shoulders 726.2 [facility] [address] [place] [id number] [place] [address] 06074- 5635 Nov, [facility] [address] [place] [id number] [place] [address] 21737- 2829 Nov, [facility] [address] [place] [address]- 1525 Nov, Urgency of urination 788.63 [facility] [address] [id number] [place] [address]- 2513 October, [facility] [address] [place] [id number] [place] [address]- 7286 October, [facility] [address] [facility] [id number] [place] [address]- 9742 Sep, [facility] [address] [facility] [id number] [place] [address]- 2463 Sep, [facility] [address] [place] [address]- 6545 Aug, [facility] [address] [id number] [place] [address]- 6491 Aug, [facility] [address] [place] [address]- 8982 Aug, [facility] [address] [facility] [id number] [place] [address]- 3761 Aug, [facility] [address] [place] [address]- 1012 Aug, [facility] [id number] [place] [address]- 1348 Aug, [facility] [id number] [place] [address]- 2954 Aug, [facility] [address] [facility] [id number] [place] [address]- 2098 Jul, [facility] [place] [facility] [id number] 6025 Jul, [facility] [address] [facility] [id number] [place] [address]- 1726 Jul, [facility] [id number] [place] [address]- 6226 Jul, [facility] [place] [facility] [address] [id number] [place] [address]- 6365 Jul, [facility] [place] [facility] [address] [id number] [place] 5848 Jul, [facility] [place] [facility] [address] [id number] [place] [address]- 9181 Jun, [facility] [place] [facility] [address] [id number] [place] [address]- 9739 Jun, [facility] [place] [facility] [address] [id number] [place] [address]- 1392 May, [facility] [place] [facility] [address] [id number] [place] [address]- 3111 May, [facility] [place] [facility] [address] [id number] [place] [address]- 2222 May, [facility] [place] [facility] [address] [id number] [place] [address]- 8081 May, [facility] [place] [facility] [address] [id number] [place] [address]- 7973 Mar, [facility] [place] [facility] [address] [id number] [place] [address]- 7504 Mar, [facility] [place] [facility] [address] [id number] [place] [address]- 4646 Feb, [facility] [place] [facility] [address] [id number] [place] [address]- 5708 Feb, [facility] [place] [facility] [address] [id number] [place] [address]- 3033 Jan, [facility] [place] [facility] [address] [id number] [place] [address]- 3929 Jan, [facility] [place] [facility] [address] [id number] [place] [address]- 0230 Jan, [facility] [place] [facility] [address] [id number] [place] [address]- 4956 Jan, [facility] [place] [facility] [address] [id number] [place] [address]- 9515 Jan, [facility] [place] [facility] [address] [id number] [place] [address] 2546 Nov, [facility] [place] [facility] [address] [id number] [place] [address]- 4148 Nov, [facility] [place] [facility] [address] [id number] [place] [address]- 5755 October, [facility] [place] [facility] [address] [id number] [place] [address]- 4575 October, [facility] [place] [facility] [address] [id number] [place] [address]- 0104 October, [facility] [place] [facility] [address] [id number] [place] [address]- 1103 October, [facility] [place] [facility] [address] [id number] [place] [address]- 5814 Sep, [facility] [place] [facility] [address] [id number] [place] [address]- 7290 Aug, [facility] [place] [facility] [address] [id number] [place] [address]- 1806 Aug, [facility] [place] [facility] [address] [id number] [place] [address]- 0608 Aug, [facility] [place] [facility] [address] [id number] [place] [address]- 6252 Aug, [facility] [place] [facility] [address] [id number] [place] [address]- 4126 Jul, [facility] [place] [facility] [address] [id number] [place] [address]- 2546 Jul, [facility] [place] [facility] [address] [id number] [place] [address]- 5626 Jun, [facility] [place] [facility] [address] [id number] [place] [address]- 0327 Jun, [facility] [place] [facility] [address] [id number] [place] [address]- 9751 Jun, [facility] [place] [facility] [address] [id number] [place] [address]- 4996 Jun, [facility] [place] [facility] [address] [id number] [place] [address]- 4707 Jun, [facility] [place] [facility] [address] [id number] [place] [address]- 0190 Jun, [facility] [place] [facility] [address] [id number] [place] [address]- 8981 Mar, [facility] [place] [facility] [address] [id number] [place] [address] Mar, [facility] [place] [facility] [address] [id number] [place] [address] Feb, [facility] [place] [facility] [address] [id number] [place] [address] Feb, [facility] [place] [facility] [address] [id number] [place] [address] Feb, [facility] [place] [facility] [address] [id number] [place] [address] Jan, [facility] [place] [facility] [address] [id number], [place] [address] Jan, [facility] [place] [facility] [address] [id number] [place] [address] Dec, [facility] [place] [facility] [address] [id number] [place] [address] Nov, [facility] [place] [facility] [address] [id number] [place] [address] Sep, [facility] [place] [facility] [address] [id number] [place] [address] Aug, [facility] [address] [id number] [place] [address] Aug, [facility] [place] [facility] [address] [id number] [place] [address] Aug, [facility] [place] [facility] [address] [id number] [place] [address] Jul, [facility] [place] [facility] [address] [id number] [place] [address] Jul, [facility] [place] [facility] [address] [id number] [place] [address] Jul, [facility] [place] [facility] [address] [id number] [place] [address] Jul, [facility] [place] [facility] [address] [id number] [place] [address] Jul, [facility] [address] [id number] [place] [address] Apr, [facility] [place] [facility] [address] [id number] [place] [address] Apr, [facility] [address] [id number] [place] [address] Jan, [facility] [place] [facility] [address] [id number] [place] [address] Jan, [facility] [place] [facility] [address] [id number] [place] [address] Dec, [facility] [place] [facility] [address] [id number] [place] [address] Dec, [facility] [place] [facility] [address] [id number] [place] [address] Dec, [facility] [place] [facility] [address] [id number] [place] [address] Dec, [facility] [address] [id number] [address] Dec, [facility] [id number] [address] October, [facility] [address] [id number], [place] [address] Aug, [facility] [id number], [place] [address] Aug, [facility] [id number] [address] Aug, [facility] [id number] [address] Jul, [facility] [id number] [address] May, [facility] [id number] [address] Apr, [facility] [id number] [address] May, [facility] [id number], [place] [address] May, [facility] [id number], [place] [address] May, [facility] [address] [id number] [address] Mar, [facility] [address] [id number] [address] Mar, [facility] [address] [id number] [address] Aug, IMMUNIZATIONS No Known Immunizations SOCIAL HISTORY Never Assessed REASON FOR VISIT Medication Update PLAN OF CARE VITAL SIGNS MEDICATIONS Unknown Medications RESULTS No Results PROCEDURES No Known procedures INSTRUCTIONS MEDICATIONS ADMINISTERED No Known Medications MEDICAL (GENERAL) HISTORY Type Description Date Medical History chronic pain Medical History arthritis Surgical History Nephrectomy - age 3 Surgical History Appendectomy Hospitalization History surgery Hospitalization History childbirth x 3
--- OUTSIDE RECORDS SUMMARY | 2018-06-07 13:26 | XMS REPORT ---
Author Author CHUY NGUYEN [facility] Address [address] [place] [address] Care Team Providers Care Animal Surgeon Name Role Phone CHUY NGUYEN Unavailable PROBLEMS Type Condition ICD9-CM Code [id number] Code Onset Dates Condition Status SNOMED Code Problem Scoliosis (and kyphoscoliosis), idiopathic M41.20 Active 51281016 Problem Myalgia M79.1 Active 08078205 Problem Other chronic pain G89.29 Active 69178889 Problem Urinary urgency R39.15 Active 00889391 Problem Dysthymia F34.1 Active 96977056 Problem Varicose veins I86.8 Active 428223522 Problem Need for prophylaxis against urinary tract infection Z29.8 Active 449092516 Problem Abnormal mammogram of left breast R92.8 Active 003870393 Problem Scoliosis, unspecified scoliosis type, unspecified spinal region M41.9 Active 531042898 Problem Arthralgia M25.50 Active 45528408 Problem Calculus of gallbladder without cholecystitis without obstruction K80.20 Active 450305846 Problem Major depressive disorder, single episode, unspecified F32.9 Active 52360467 ALLERGIES No Information ENCOUNTERS Encounter Location Date Diagnosis [place] [id number] [place] [address] 05137- 0599 Jan, [place] [id number] [place] [address] 80757- 3998 Dec, Impacted cerumen, right ear H61.21 and Dysfunction of right eustachian tube H69.[address] [place] [address] 81864- 6847 Nov, Myalgia M79.1 and Other chronic pain G89.29 [address] [place] [address] 78862- 4028 October, Other chronic pain G89.29 and Myalgia M79.1 [facility] [address] [place] [id number] [place] [address] 86232- 4875 Sep, Other chronic pain G89.29 [facility] [address] [address] [id number] [place] [address] 54432- 2217 30 Aug, 2017 Other chronic pain G89.29 [facility] [address] [place] [address] [id number] [place] [address] 25857- 7528 Aug, Scoliosis (and kyphoscoliosis), idiopathic M41.20 [facility] [address] [place] [id number] [place] [address] 47247- 8836 Aug, [facility] [address] [place] [id number] [place] [address] 48436- 9910 12 Aug, 2017 Dysuria R30.0 ; Scoliosis, unspecified scoliosis type, unspecified spinal region M41.9 ; Encounter for therapeutic drug level monitoring Z51.81 and Alcohol use Z78.9 [facility] [address] [id number] [place] [address] 98580- 7630 07 Aug, 2017 Other chronic pain G89.29 [facility] [address] [place] [address] [id number] [place] [address] 60795- 2652 23 Jul, 2017 Chronic urinary tract infection N39.0 [facility] [address] [place] [id number] [place] [address] 42270- 0899 Jul, Other chronic pain G89.29 [facility] [address] [address] [id number] [place] [address] 03178- 3586 Jun, [facility] [address] [id number] [place] [address] 52785- 5052 Jun, [facility] [address] [address] [id number] [place] [address] 23029- 9788 Jun, Acute left-sided thoracic back pain M54.6 [facility] [address] [place] [address] [id number] [place] [address] 68971 -6314 Jun, Cough R05 and Acute bilateral thoracic back pain M54.6 [facility] [address] [place] [id number] [place] [address] 00440 -2786 Jun, Back pain, unspecified back location, unspecified back pain laterality, unspecified chronicity M54.9 and Left flank pain R10.9 [place] [address] 07921- 7847 Jun, Other chronic pain G89.29 [place] [address] 56885- 4269 Jun, Myalgia M79.1 [place] [address] 92599- 8395 May, Other chronic pain G89.29 [place] [address] 98952- 8778 07 May, 2017 Myalgia M79.1 and Fatigue due to exposure, subsequent encounter T73.2XXD [place] [address] 16931- 1965 05 May, 2017 Fatigue due to exposure, subsequent encounter T73.2XXD [place] [address] [place] [id number] [place] [address] 92803- 1400 Apr, Other chronic pain G89.29 and Myalgia M79.1 [place] [address] 00246- 3682 08 Apr, 2017 Closed nondisplaced fracture of phalanx of left great toe with routine healing, unspecified phalanx, subsequent encounter S92.405D ; Dysuria R30.0 ; Localized edema R60.0 and Arthralgia M25.50 [place] [address] 96991- 3475 Mar, Other chronic pain G89.29 and Myalgia M79.1 [place] [address] 83869- 2651 Mar, [facility] [address] [address]- 9052 Mar, Dysuria R30.0 ; Other chronic pain G89.29 ; Scoliosis, unspecified scoliosis type, unspecified spinal region M41.9 and Chronic urinary tract infection N39.0 [facility] [address] [address]- 4796 Feb, Arthralgia M25.50 and Myalgia M79.1 [facility] [address] [place] [id number] [place] [address] 62095- 2884 Feb, [facility] [address] [place] [id number] [place] [address] 81034- 3783 Feb, [facility] [address] [place] [address] 75610- 2629 Feb, Closed compression fracture of L4 lumbar vertebra with routine healing, subsequent encounter S32.040D ; Closed nondisplaced fracture of phalanx of left great toe with routine healing, unspecified phalanx, subsequent encounter S92.405D and Chronic urinary tract infection N39.0 [facility] [address] [place] [address] 15847- 8405 Jan, Closed compression fracture of fourth lumbar vertebra, initial encounter S32.040A [facility] [address] [address]- 8749 Jan, Urinary tract infection, site not specified N39.0 [facility] [address] [address]- 9540 Jan, [facility] [address] [place] [id number] [place] [address] 78609- 7721 Jan, [facility] [address] [place] [address] 43245- 6979 Jan, Arthralgia M25.50 and Myalgia M79.1 [facility] [address] [place] [id number] [place] [address] 21261- 9456 Jan, Need for prophylaxis against urinary tract infection Z29.8 and Urinary tract infection, site not specified N39.0 [facility] [address] [place] [id number] [place] [address] 56093- 0864 Dec, Urinary tract infection, site not specified N39.0 and Need for prophylaxis against urinary tract infection Z29.8 [facility] [address] [place] [id number] [place] [address] 93213- 6284 Dec, Major depressive disorder, single episode, unspecified F32.9 ; Myalgia M79.1 ; Arthralgia M25.50 and custodial 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 Z79.891 [place] [address] [place] [id number] [place] [address] 40037- 3296 Dec, Other chronic pain G89.29 and Dysuria R30.0 [place] [address] [place] [id number] [place] [address] 19554- 6456 Nov, custodial 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 Z79.891 [place] [address] [place] [id number] [place] [address] 06931- 3928 Nov, Acute midline low back pain without sciatica M54.5 and 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 Z79.891 [facility] [address] [place] [id number] [place] [address] 59292- 4809 Nov, [facility] [address] [place] [id number] [place] [address] 04841- 6414 October, [facility] [address] [place] [id number] [place] [address] 56427- 1084 October, [facility] [address] [place] [id number] [place] [address] 26175- 7629 Sep, Right leg pain M79.604 [facility] [address] [place] [address] 32195- 2816 Sep, [facility] [address] [place] [id number] [place] [address] 89199- 6363 Aug, Right leg pain M79.604 [place] [address] [place] [id number] [place] [address] 09384- 8728 Jul, [place] [address] [place] [id number] [place] [address] 03951- 3667 Jul, Arthralgia M25.50 and Right leg pain M79.604 [place] [address] [place] [id number] [place] [address] 59421- 6672 Jun, Arthralgia M25.50 [place] [address] [place] [id number] [place] [address] 09974- 7191 Jun, [place] [address] [place] [id number] [place] [address] 12831- 7481 Jun, Right leg pain M79.604 [place] [address] [place] [id number] [place] [address] 72985- 6837 Jun, Right leg pain M79.604 [place] [address] [place] [id number] [place] [address] 74242- 6386 Jun, Abnormal mammogram of left breast R92.8 [place] [address] [place] [id number] [place] [address] 41102- 3193 May, Routine gynecological examination V72.31 ; Breast cancer screening Z12.39 ; Cervical cancer screening Z12.4 ; Colon cancer screening Z12.11 and Calculus of gallbladder without cholecystitis without obstruction K80.20 [place] [address] [place] [address] 53843- 4243 May, Arthralgia M25.50 [place] [address] [place] [id number] [place] [address] 79205- 5637 Apr, Arthralgia M25.50 [place] [address] [place] [id number] [place] [address] 76556- 1869 Apr, Screening, lipid Z13.220 [place] [address] [place] [id number] [place] [address] 12245- 5030 Apr, Other chronic pain G89.29 ; Scoliosis, unspecified scoliosis type, unspecified spinal region M41.9 ; Right leg pain M79.604 ; Major depressive disorder, single episode, unspecified F32.9 ; Fatigue due to exposure, subsequent encounter T73.2XXD ; Dysthymia F34.1 and Screening, lipid Z13.220 [place] [address] 97342- 5786 Apr, Arthralgia M25.50 [place] [address] 52771- 1861 Mar, Dysthymia 300.4 [place] [address] [place] [id number] [place] [address] 99871- 2667 Mar, Arthralgia M25.50 [place] [address] 16516- 2986 Feb, Arthralgia M25.50 [place] [address] 54212- 3199 Jan, Arthralgia M25.50 [place] [address] [place] [id number] [place] [address] 79018- 6055 Dec, 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 [place] [address] [place] [id number] [place] [address] 24513- 8760 Dec, [place] [address] [place] [id number] [place] [address] 80687- 4992 Dec, Right leg pain M79.604 and Scoliosis, unspecified scoliosis type, unspecified spinal region M41.9 [place] [address] [place] [id number] [place] [address] 15005- 9415 Dec, Right leg pain M79.604 and Scoliosis, unspecified scoliosis type, unspecified spinal region M41.9 [place] [address] [place] [id number] [place] [address] 36410- 8579 Dec, Arthralgia M25.50 [place] [address] [place] [id number] [place] [address] 04519- 4997 Nov, Arthralgia M25.50 [place] [address] [place] [id number] [place] [address] 37918- 3520 October, Arthralgia M25.50 and Scoliosis, unspecified scoliosis type , unspecified spinal region M41.9 [facility] [address] [place] [id number] [place] [address] 73484- 5210 Sep, [place] [address] 09703- 5874 Aug, [place] [address] 96338- 3329 Aug, Arthralgia M25.50 ; Myalgia M79.1 and Scoliosis M41.9 [place] [address] [place] [id number] [place] [address] 17132- 8239 Jul, Other chronic pain G89.29 [place] [address] [place] [id number] [place] [address] 77715- 6201 Jul, Other chronic pain G89.29 [place] [address] [place] [id number] [place] [address] 60189- 9540 Jul, Impingement syndrome of both shoulders M75.41 [place] [address] [place] [id number] [place] [address] 64346- 7350 Jun, [facility] [address] [place] [id number] [place] [address] 71590- 5164 Jun, [place] [address] [place] [id number] [place] [address] 68854- 2294 Jun, Scoliosis (and kyphoscoliosis), idiopathic M41.20 and Other chronic pain G89.29 [facility] [address] [place] [id number] [place] [address] 05818 -7189 Jun, Upper respiratory tract infection, unspecified type 465.9 and Rhinorrhea J34.89 [facility] [address] [place] [id number] [place] [address] 94055- 5289 May, [facility] [address] [place] [id number] [place] [address] 60859- 0726 May, [facility] [address] 41611- 3538 Apr, Dysuria R30.0 ; Urinary tract infection, site not specified N39.0 and Hematuria, unspecified R31.9 [place] [address] 32646- 7373 Apr, [place] [address] [place] [id number] [place] [address] 83186- 4959 Mar, Family history of early CAD Z82.49 [place] [address] 63906- 7199 Mar, Other chronic pain G89.29 [place] [address] [place] [id number] [place] [address] 37584- 7372 Mar, Impingement syndrome of both shoulders M75.41 [place] [address] [place] [id number] [place] [address] 90730- 5513 Mar, Other chronic pain G89.29 ; Dysthymia F34.1 ; Family history of early CAD Z82.49 ; Dysuria R30.0 and Other specified disorders of Eustachian tube, right ear H69.81 [place] [address] [place] [id number] [place] [address] 80306- 3767 Mar, [place] [address] 63228- 9286 Feb, [place] [address] [place] [id number] [place] [address] 61462- 1742 Jan, [facility] [address] 00274- 3842 Jan, Eustachian tube dysfunction 381.81 and Dysthymia 300.4 [facility] [address] [place] [id number] [place] [address] 93104- 5498 Dec, [facility] [address] [place] [id number] [place] [address] 965974- 6123 Nov, Impingement syndrome of both shoulders 726.2 [facility] [address] [place] [id number] [place] [address] 85152- 8837 Nov, [facility] [address] [place] [id number] [place] [address] 85542- 9946 Nov, [facility] [address] [place] [id number] [place] [address] 96543- 5066 Nov, Urgency of urination 788.63 [facility] [address] [place] [id number] [place] [address] 39150- 5404 October, [facility] [address] [place] [id number] [place] [address] 40597- 4564 October, [facility] [address] [place] [id number] [place] [address] 27294- 1487 Sep, [facility] [address] [id number] [place] [address] 36165- 7542 Sep, [facility] [address] [place] [address] 62721- 5622 Aug, [facility] [address] [place] [id number] [place] [address] 86410- 4846 Aug, [facility] [address] [id number] [place] [address] 021865- 5904 Aug, [facility] [id number] [place] [address] 263020- 1645 Aug, [facility] [address] [place] [address]- 2490 Aug, [facility] [place] [facility] [address] [id number] [place] [address]- 1257 Aug, [facility] [place] [facility] [address] [id number] [place]- 0456 Aug, 2014 [facility] [place] [facility] [address] [id number] [place] [address]- 1689 Jul, 2014 [facility] [place] [facility] [address] [id number] [place] [address]- 4724 Jul, 2014 [facility] [place] [facility] [address] [id number] [place] [address]- 8673 Jul, 2014 [facility] [place] [facility] [address] [id number] [place] [address]- 9620 Jul, 2014 [facility] [place] [facility] [address] [facility] [id number] [place] [address]- 7041 Jul, [facility] [place] [facility] [address] [facility] [id number] [place] [address]- 6963 Jul, [facility] [place] [facility] [address] [facility] [id number] [place] [address]- 3733 Jun, [facility] [place] [facility] [address] [facility] [id number] [place] [address]- 1794 Jun, [facility] [place] [facility] [address] [facility] [id number] [place] [address]- 2963 May, [facility] [place] [facility] [address] [id number] [address]- 4694 May, [facility] [place] [facility] [address] [id number] [place] [address]- 2545 May, [facility] [place] [facility] [address] [facility] [id number] [place] 5849 May, [facility] [place] [facility] [address] [facility] [id number] [place] [address]- 3285 Mar, [facility] [place] [facility] [address] [id number] [place] [address]- 0852 Mar, [facility] [place] [facility] [address] [id number] [place] [address]- 8858 Feb, [facility] [place] [facility] [address] [id number] [place] [address]- 0569 Feb, [facility] [place] [facility] [address] [id number] [place] [address]- 0218 Jan, [facility] [place] [facility] [address] [id number] [place] [address]- 9497 Jan, [facility] [place] [facility] [address] [id number] [place] [address]- 1272 Jan, [facility] [place] [facility] [address] [id number] [place] [address]- 9007 Jan, [facility] [place] [facility] [address] [id number] [place] [address]- 4707 Jan, [facility] [place] [facility] [address] [id number] [place] [address]- 4317 Nov, [facility] [place] [facility] [address] [id number] [place] [address]- 6205 Nov, [facility] [place] [facility] [address] [id number] [place] [address]- 7382 October, [facility] [place] [facility] [address] [id number] [place] [address]- 6203 October, [facility] [place] [facility] [address] [id number] [place] [address]- 4946 October, [facility] [place] [facility] [address] [id number] [place] [address]- 9746 October, [facility] [place] [facility] [address] [id number] [place] [address]- 3727 Sep, [facility] [place] [facility] [address] [id number] [place] [address]- 2104 Aug, [facility] [place] [facility] [address] [id number] [place] [address]- 2798 Aug, [facility] [place] [facility] [address] [id number] [place] [address]- 8335 Aug, [facility] [place] [facility] [address] [id number] [place] [address]- 1263 Aug, [facility] [place] [facility] [address] [id number] [place] [address]- 0404 Jul, [facility] [place] [facility] [address] [id number] [place] [address]- 6719 Jul, [facility] [place] [facility] [address] [id number] [place] [address]- 8553 Jun, [facility] [place] [facility] [address] [id number] [place] [address]- 0808 Jun, [facility] [place] [facility] [address] [id number] [place] [address]- 4300 Jun, [facility] [place] [facility] [address] [id number] [place] [address]- 9346 Jun, [facility] [place] [facility] [address] [id number] [place] [address]- 1899 Jun, [facility] [place] [facility] [address] [id number] [place] [address]- 0359 Jun, [facility] [place] [facility] [address] [id number] [place] [address]- 1465 Mar, [facility] [place] [facility] [address] [id number] [place] [address]- 9082 Mar, [facility] [place] [facility] [address] [id number] [place] [address]- 2311 Feb, [facility] [place] [facility] [address] [id number] [place] [address]- 2546 11 Feb, 2013 [facility] [place] [facility] [address] [id number] [place] [address] Feb, [facility] [address] [id number] [place] [address] Jan, [facility] [place] [facility] [address] [id number] [place] [address] Jan, [facility] [place] [facility] [address] [id number] [place] [address] Dec, [facility] [place] [facility] [address] [id number] [place] [address] Nov, [facility] [place] [facility] [address] [id number] [place] [address] Sep, [facility] [place] [facility] [address] [id number] [place] [address] Aug, [facility] [place] [facility] [address] [id number] [place] [address] Aug, [facility] [place] [facility] [address] [id number] [place] [address] Aug, [facility] [place] [facility] [address] [id number] [place] [address] Jul, [facility] [place] [facility] [address] [id number] [place] [address] Jul, [facility] [place] [facility] [address] [id number] [place] [address] Jul, [facility] [place] [facility] [address] [id number] [place] [address] Jul, [facility] [place] [facility] [address] [id number] [place] [address] Jul, [facility] [place] [facility] [address] [id number] [place] [address] Apr, [facility] [place] [facility] [address] [id number] [place] [address] Apr, [facility] [place] [facility] [address] [id number] [place] [address] Jan, [facility] [address] [id number] [place] [address] Jan, [facility] [address] [id number] [place] [address] Dec, [facility] [address] [id number] [place] [address] Dec, [facility] [address] [id number] [place] [address] Dec, [facility] [address] [id number] [place] [address] Dec, [facility] [address] [id number] [place] [address] Dec, [facility] [address] [id number] [place] [address] October, [facility] [address] [id number] [place] [address] Aug, [facility] [address] [id number] [place] [address] Aug, [facility] [address] [id number] [place] [address] Aug, [facility] [address] [id number] [place] [address] Jul, [facility] [address] [id number] [place] [address] May, [facility] [place] [facility] [address] [id number] [place] [address] Apr, [facility] [address] [id number] [place] [address] May, [facility] [address] [id number] [place] [address] May, [facility] [address] [facility] [id number] [id number] May, [facility] [address] [facility] [id number], [place] [address] Mar, [facility] [address] [facility] [id number], [place] [address] Mar, [facility] [address] [facility] [id number], [place] [address] Aug, IMMUNIZATIONS No Known Immunizations SOCIAL HISTORY [...]
--- OUTSIDE RECORDS SUMMARY | 2018-06-07 13:27 | XMS REPORT ---
Author Author CHUY NGUYEN [facility] Address [address] [place] [address] Care Team Providers Care Sticker Machine Operator Name Role Phone CHUY NGUYEN Unavailable PROBLEMS Type Condition ICD9-CM Code AUJ48-PL Code Onset Dates Condition Status SNOMED Code Problem Scoliosis (and kyphoscoliosis), idiopathic M41.20 Active 84062796 Problem Myalgia M79.1 Active 06002187 Problem Other chronic pain G89.29 Active 00804813 Problem Urinary urgency R39.15 Active 43798630 Problem Dysthymia F34.1 Active 58553525 Problem Varicose veins I86.8 Active 181972355 Problem Need for prophylaxis against urinary tract infection Z29.8 Active 809607123 Problem Abnormal mammogram of left breast R92.8 Active 496592409 Problem Scoliosis, unspecified scoliosis type, unspecified spinal region M41.9 Active 246292336 Problem Arthralgia M25.50 Active 13219862 Problem Calculus of gallbladder without cholecystitis without obstruction K80.20 Active 666034649 Problem Major depressive disorder, single episode, unspecified F32.9 Active 09353055 ALLERGIES No Information ENCOUNTERS Encounter Location Date Diagnosis [place] [id number] [place] [address] 31479- 3229 Sep, Other chronic pain G89.29 [facility] [id number] [place] [address] 91852- 4227 30 Aug, 2017 Other chronic pain G89.29 [place] [address] [place] [id number] [place] [address] 26972- 8988 Aug, Scoliosis (and kyphoscoliosis), idiopathic M41.20 [facility] [id number] [place] [address] 83626- 3368 Aug, [place] [address] [id number] [place] [address] 00898- 5460 12 Aug, 2017 Dysuria R30.0 ; Scoliosis, unspecified scoliosis type, unspecified spinal region M41.9 ; Encounter for therapeutic drug level monitoring Z51.81 and Alcohol use Z78.9 [place] [address] [id number] [place] [address] 28357- 6324 07 Aug, 2017 Other chronic pain G89.29 [place] [address] [place] [id number] [place] [address] 55273- 5940 Jul, Chronic urinary tract infection N39.0 [place] [address] 65545- 0294 Jul, Other chronic pain G89.29 [place] [address] [place] [id number] [place] [address] 99913- 8930 Jun, [place] [address] 56668- 9559 Jun, [place] [address] [place] [id number] [place] [address] 41167- 6631 Jun, Acute left-sided thoracic back pain M54.6 [facility] [id number] [place] [address] 81148 -9601 18 Jun, 2017 Cough R05 and Acute bilateral thoracic back pain M54.6 [facility] [id number] [place] [address] 91555 -2923 15 Jun, 2017 Back pain, unspecified back location, unspecified back pain laterality, unspecified chronicity M54.9 and Left flank pain R10.9 [place] [address] [id number] [place] [address] 17729- 0184 Jun, Other chronic pain G89.29 [place] [address] [place] [id number] [place] [address] 77066- 0028 Jun, Myalgia M79.1 [place] [address] [id number] [place] [address] 99750- 1565 May, Other chronic pain G89.29 [place] [address] [place] [address] 68536- 2261 May, Myalgia M79.1 and Fatigue due to exposure, subsequent encounter T73.2XXD [place] [address] [place] [id number] [place] [address] 29040- 8504 05 May, 2017 Fatigue due to exposure, subsequent encounter T73.2XXD [place] [address] [place] [id number] [place] [address] 02758- 1349 15 Apr, 2017 Other chronic pain G89.29 and Myalgia M79.1 [place] [address] [id number] [place] [address] 54590- 0877 08 Apr, 2017 Closed nondisplaced fracture of phalanx of left great toe with routine healing, unspecified phalanx, subsequent encounter S92.405D ; Dysuria R30.0 ; Localized edema R60.0 and Arthralgia M25.50 [place] [address] [id number] [place] [address] 11731- 8796 Mar, Other chronic pain G89.29 and Myalgia M79.1 [place] [address] [place] [id number] [place] [address] 95848- 4141 Mar, [place] [address] [address] [id number] [place] [address] 54674- 9136 Mar, Dysuria R30.0 ; Other chronic pain G89.29 ; Scoliosis, unspecified scoliosis type, unspecified spinal region M41.9 and Chronic urinary tract infection N39.0 [place] [address] [id number] [place] [address] 99375- 8029 20 Feb, 2017 Arthralgia M25.50 and Myalgia M79.1 [place] [address] [place] [id number] [place] [address] 75084- 2497 13 Feb, 2017 [facility] [address] [place] [id number] [place] [address] 09460- 6492 Feb, [place] [address], [place] [address]- 7755 Feb, Closed compression fracture of L4 lumbar vertebra with routine healing, subsequent encounter S32.040D ; Closed nondisplaced fracture of phalanx of left great toe with routine healing, unspecified phalanx, subsequent encounter S92.405D and Chronic urinary tract infection N39.0 [place] [address] [place] [id number] [place] [address] 47592- 5839 Jan, Closed compression fracture of fourth lumbar vertebra, initial encounter S32.040A [place] [address] [place] [id number] [place] [address] 15036- 0685 Jan, Urinary tract infection, site not specified N39.0 [place] [address] [place] [address] 90339- 0136 Jan, [place] [address] [place] [id number] [place] [address] 64488- 0170 Jan, [place] [address] [place] [address] 15808- 5482 Jan, Arthralgia M25.50 and Myalgia M79.1 [place] [address] [place] [address] 82608- 3509 Jan, Need for prophylaxis against urinary tract infection Z29.8 and Urinary tract infection, site not specified N39.0 [place] [address] [place] [address] 82564- 0875 Dec, Urinary tract infection, site not specified N39.0 and Need for prophylaxis against urinary tract infection Z29.8 [place] [address] [place] [address] 63267- 4618 Dec, Major depressive disorder, single episode, unspecified F32.9 ; Myalgia M79.1 ; Arthralgia M25.50 and group home 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 Z79.891 [place] [address] [place] [address]- 4173 Dec, Other chronic pain G89.29 and Dysuria R30.0 [facility] [address] 80298- 9328 Nov, 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 [facility] [address] [place] [id number] [place] [address] 49490- 4706 Nov, Acute midline low back pain without sciatica M54.5 and 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 [facility] [address] [place] [id number] [place] [address] 59967- 9533 Nov, [facility] [address] 78548- 0997 October, [facility] [address] 27370- 6597 October, [facility] [address] 65514- 2810 Sep, Right leg pain M79.604 [facility] [address] 62901- 3921 Sep, [facility] [address] [place] [id number] [place] [address] 33302- 1997 Aug, Right leg pain M79.604 [facility] [address] [id number] [place] [address] 05969- 9076 Jul, [facility] [address] [place] [id number] [place] [address] 44437- 0800 Jul, Arthralgia M25.50 and Right leg pain M79.604 [facility] [address] [place] [id number] [place] [address] 851631- 3156 Jun, Arthralgia M25.50 [facility] [address] [place] [id number] [place] [address] 61878- 2166 Jun, [place] [address] [place] [id number] [place] [address] 21976- 1765 Jun, Right leg pain M79.604 [place] [address] 50415- 0248 Jun, Right leg pain M79.604 [place] [address] [place] [id number] [place] [address] 21295- 6589 Jun, Abnormal mammogram of left breast R92.[address] 99143- 2826 May, Routine gynecological examination V72.31 ; Breast cancer screening Z12.39 ; Cervical cancer screening Z12.4 ; Colon cancer screening Z12.11 and Calculus of gallbladder without cholecystitis without obstruction K80.20 [place] [id number] [place] [address] 08992- 9287 May, Arthralgia M25.[address] 87394- 1235 Apr, Arthralgia M25.[address] 73209- 1498 Apr, Screening, lipid Z13.220 [place] [id number] [place] [address] 40348- 4691 14 Apr, 2016 Other chronic pain G89.29 ; Scoliosis, unspecified scoliosis type, unspecified spinal region M41.9 ; Right leg pain M79.604 ; Major depressive disorder, single episode, unspecified F32.9 ; Fatigue due to exposure, subsequent encounter T73.2XXD ; Dysthymia F34.1 and Screening, lipid Z13.[address] 25673- 1038 Apr, Arthralgia M25.50 [place] [id number] [place] [address] 45482- 3561 Mar, Dysthymia [address], [place] [address]- 7919 Mar, Arthralgia M25.50 [facility] [address] [place] [id number] [place] [address] 19062- 2987 Feb, Arthralgia M25.50 [facility] [address] [place] [address] 46587- 0951 Jan, Arthralgia M25.50 [facility] [address] [place] [id number] [place] [address] 74901- 8248 Dec, 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 [facility] [address] [place] [id number] [place] [address] 93168- 8280 Dec, [facility] [address] [place] [id number] [place] [address] 64921- 2359 Dec, Right leg pain M79.604 and Scoliosis, unspecified scoliosis type, unspecified spinal region M41.9 [facility] [address] [place] [id number] [place] [address] 96967- 5979 Dec, Right leg pain M79.604 and Scoliosis, unspecified scoliosis type, unspecified spinal region M41.9 [facility] [address] [place] [address] 74585- 7876 Dec, Arthralgia M25.50 [facility] [address] [place] [id number] [place] [address] 25244- 1952 Nov, Arthralgia M25.50 [facility] [address] [place] [id number] [place] [address] 16967- 3066 October, Arthralgia M25.50 and Scoliosis, unspecified scoliosis type , unspecified spinal region M41.9 [facility] [address], [place] [address]- 2568 Sep, [facility] [address] [place] [id number] [place] [address] 85503- 0814 Aug, [facility] [address] [place] [address] 37441- 9734 Aug, Arthralgia M25.50 ; Myalgia M79.1 and Scoliosis M41.9 [facility] [address] [place] [id number] [place] [address] 19228- 1386 Jul, Other chronic pain G89.29 [facility] [address] [place] [id number] [place] [address] 96860- 8041 Jul, Other chronic pain G89.29 [place] [address] [place] [id number] [place] [address] 89858- 1331 Jul, Impingement syndrome of both shoulders M75.41 [place] [address] [place] [id number] [place] [address] 34046- 4807 Jun, [place] [address] 28847- 1270 Jun, [facility] [address] [place] [id number] [place] [address] 73644- 3277 Jun, Scoliosis (and kyphoscoliosis), idiopathic M41.20 and Other chronic pain G89.29 [facility] [address] [place] [id number] [place] [address] 95674 -0838 Jun, Upper respiratory tract infection, unspecified type 465.9 and Rhinorrhea J34.89 [facility] [address] [place] [id number] [place] [address] 43973- 5858 May, [facility] [address] [place] [id number] [place] [address] 70239- 3814 May, [place] [address] 52092- 0579 Apr, Dysuria R30.0 ; Urinary tract infection, site not specified N39.0 and Hematuria, unspecified R31.9 [facility] [address] [place] [id number] [place] [address] 73045- 9106 Apr, [facility] [address] [place] [address] 32102- 3617 Mar, Family history of early CAD Z82.49 [facility] [address] [place] [id number] [place] [address] 17294- 1652 Mar, Other chronic pain G89.29 [facility] [address] [place] [id number] [place] [address] 10917- 1591 Mar, Impingement syndrome of both shoulders M75.41 [facility] [address] [place] [id number] [place] [address] 00375- 2286 Mar, Other chronic pain G89.29 ; Dysthymia F34.1 ; Family history of early CAD Z82.49 ; Dysuria R30.0 and Other specified disorders of Eustachian tube, right ear H69.81 [facility] [address] [place] [id number] [place] [address] 78961- 6604 Mar, [facility] [address] [place] [id number] [place] [address] 88535- 3543 Feb, [facility] [address] [place] [id number] [place] [address] 07757- 7395 Jan, [facility] [address] [id number] [place] [address] 29160- 9291 Jan, Eustachian tube dysfunction 381.81 and Dysthymia 300.4 [facility] [address] [place] [id number] [place] [address] 79089- 3021 Dec, [facility] [address] [id number] [place] [address] 95318- 5188 Nov, Impingement syndrome of both shoulders 726.2 [facility] [address] [id number] [place] [address] 20584- 3932 Nov, [facility] [address] [id number] [place] [address] 07951- 2464 Nov, [facility] [address] [place] [address]- 9364 Nov, Urgency of urination 788.63 [facility] [address] [id number] [place] [address]- 9210 October, [facility] [address] [place] [id number] [place] [address]- 4016 October, [facility] [address] [facility] [id number] [place] [address]- 6463 Sep, [facility] [address] [facility] [id number] [place] [address]- 7840 Sep, [facility] [address] [place] [address]- 5606 Aug, [facility] [address] [id number] [place] [address]- 8508 Aug, [facility] [address] [place] [address]- 9715 Aug, [facility] [address] [facility] [id number] [place] [address]- 2406 Aug, [facility] [address] [place] [address]- 8602 Aug, [facility] [address] [place] [id number] [place] [address]- 0054 Aug, [facility] [address] [place] [id number] [place] [address]- 4407 Aug, [facility] [address] [facility] [id number] [place] [address]- 6576 Jul, [facility] [place] [facility] [address] [place] [id number] 8986 Jul, [facility] [address] [facility] [id number] [place] [address]- 2136 Jul, [facility] [address] [place] [id number] [place] [address]- 7690 Jul, [facility] [place] [facility] [address] [id number] [place] [address]- 5735 Jul, [facility] [place] [facility] [address] [id number] [place] 2754 Jul, [facility] [place] [facility] [address] [id number] [place] [address]- 7280 Jun, [facility] [place] [facility] [address] [id number] [place] [address]- 8223 Jun, [facility] [place] [facility] [address] [id number] [place] [address]- 1085 May, [facility] [place] [facility] [address] [id number] [place] [address]- 5899 May, [facility] [place] [facility] [address] [id number] [place] [address]- 7337 May, [facility] [place] [facility] [address] [id number] [place] [address]- 6689 May, [facility] [place] [facility] [address] [id number] [place] [address]- 0618 Mar, [facility] [place] [facility] [address] [id number] [place] [address]- 7296 Mar, [facility] [place] [facility] [address] [id number] [place] [address]- 2422 Feb, [facility] [place] [facility] [address] [id number] [place] [address]- 2810 Feb, [facility] [place] [facility] [address] [id number] [place] [address]- 8090 Jan, [facility] [place] [facility] [address] [id number] [place] [address]- 6490 Jan, [facility] [place] [facility] [address] [id number] [place] [address]- 6151 Jan, [facility] [place] [facility] [address] [id number] [place] [address]- 6806 Jan, [facility] [place] [facility] [address] [id number] [place] [address]- 9249 Jan, [facility] [place] [facility] [address] [id number] [place] [address] 2546 Nov, [facility] [place] [facility] [address] [id number] [place] [address]- 7032 Nov, [facility] [place] [facility] [address] [id number] [place] [address]- 9411 October, [facility] [place] [facility] [address] [id number] [place] [address]- 0959 October, [facility] [place] [facility] [address] [id number] [place] [address]- 4752 October, [facility] [place] [facility] [address] [id number] [place] [address]- 5003 October, [facility] [place] [facility] [address] [id number] [place] [address]- 0532 Sep, [facility] [place] [facility] [address] [id number] [place] [address]- 6079 Aug, [facility] [place] [facility] [address] [id number] [place] [address]- 1200 Aug, [facility] [place] [facility] [address] [id number] [place] [address]- 6653 Aug, [facility] [place] [facility] [address] [id number] [place] [address]- 1506 Aug, [facility] [place] [facility] [address] [id number] [place] [address]- 1766 Jul, [facility] [place] [facility] [address] [id number] [place] [address]- 2546 Jul, [facility] [place] [facility] [address] [id number] [place] [address]- 4911 Jun, [facility] [place] [facility] [address] [id number] [place] [address]- 0821 Jun, [facility] [place] [facility] [address] [id number] [place] [address]- 7841 Jun, [facility] [place] [facility] [address] [id number] [place] [address]- 0018 Jun, [facility] [place] [facility] [address] [id number] [place] [address]- 4035 Jun, [facility] [place] [facility] [address] [id number] [place] [address]- 2273 Jun, [facility] [place] [facility] [address] [id number] [place] [address]- 9448 Mar, [facility] [place] [facility] [address] [id number] [place] [address]- 8872 Mar, [facility] [place] [facility] [address] [id number] [place] [address]- 3885 Feb, [facility] [place] [facility] [address] [id number] [place] [address]- 8212 Feb, [facility] [place] [facility] [address] [id number] [place] [address]- 7632 Feb, [facility] [place] [facility] [address] [id number] [place] [address]- 2712 Jan, [facility] [place] [facility] [address] [id number], [place] [address]- 0065 Jan, [facility] [place] [facility] [address] [id number] [place] [address]- 8945 Dec, [facility] [place] [facility] [address] [id number] [place] [address]- 2626 Nov, [facility] [place] [facility] [address] [id number] [place] [address]- 8330 Sep, [facility] [place] [facility] [address] [id number] [place] [address]- 0289 Aug, [facility] [address] [id number] [place] [address]- 4463 Aug, [facility] [place] [facility] [address] [id number] [place] [address]- 7333 Aug, [facility] [place] [facility] [address] [id number] [place] [address]- 8116 Jul, [facility] [place] [facility] [address] [id number] [place] [address]- 5822 Jul, [facility] [place] [facility] [address] [id number] [place] [address]- 9215 Jul, [facility] [place] [facility] [address] [id number] [place] [address]- 7463 Jul, [facility] [place] [facility] [address] [id number] [place] [address]- 1686 Jul, [facility] [address] [id number] [place] [address]- 1564 Apr, [facility] [place] [facility] [address] [id number] [place] [address] Apr, [facility] [address] [id number] [place] [address] Jan, [facility] [place] [facility] [address] [id number] [place] [address] Jan, [facility] [place] [facility] [address] [id number] [place] [address] Dec, [facility] [place] [facility] [address] [id number] [place] [address] Dec, [facility] [place] [facility] [address] [id number] [place] [address] Dec, [facility] [place] [facility] [address] [id number] [place] [address] Dec, [facility] [address] [id number] [address] Dec, [facility] [address] [facility] [id number], [place] [address] October, [facility] [address] [facility] [id number], [place] [address] Aug, [facility] [address] [facility] [id number], [place] [address] Aug, [facility] [address] [facility] [id number], [place] [address] Aug, [facility] [address] [facility] [id number], [place] [address] Jul, [facility] [id number], [place] [address] May, [facility] [address], [place] [address] Apr, [facility] [id number], [place] [address] May, [facility] [address], [place] [address] May, [facility] [address], [place] [address] May, [facility] [address] [id number], [place] [address] Mar, [facility] [address] [id number], [place] [address] Mar, [facility] [address] [id number], [place] [address] Aug, IMMUNIZATIONS No Known Immunizations SOCIAL HISTORY Never Assessed REASON FOR VISIT Controlled Med Refill 04/13/2017 PLAN OF CARE VITAL SIGNS MEDICATIONS Medication Instructions Dosage Frequency Start Date End Date Duration Status Percocet 10-325 MG Orally 5 times per day 1 tablet as needed Mar, 28 days Active Lyrica 150 MG Orally 3 times a day 1 capsule 8h 14 Apr, 2016 28 days Active RESULTS No Results PROCEDURES No Known procedures INSTRUCTIONS MEDICATIONS ADMINISTERED No Known Medications MEDICAL (GENERAL) HISTORY Type Description Date Medical History chronic pain Medical History arthritis Surgical History Nephrectomy - age 3 Surgical History Appendectomy Hospitalization History surgery Hospitalization History childbirth x 3
--- OUTSIDE RECORDS SUMMARY | 2018-06-07 13:27 | XMS REPORT ---
Author Author CHUY NGUYEN [facility] Address [address] [place] [address] Care Team Providers Care Barrel Marker Name Role Phone CHUY NGUYEN Unavailable PROBLEMS Type Condition ICD9-CM Code MPS77-LW Code Onset Dates Condition Status SNOMED Code Problem Scoliosis (and kyphoscoliosis), idiopathic M41.20 Active 82175743 Problem Myalgia M79.1 Active 41676069 Problem Other chronic pain G89.29 Active 88786132 Problem Urinary urgency R39.15 Active 95885307 Problem Dysthymia F34.1 Active 19029409 Problem Varicose veins I86.8 Active 461669372 Problem Need for prophylaxis against urinary tract infection Z29.8 Active 814052290 Problem Abnormal mammogram of left breast R92.8 Active 941102275 Problem Scoliosis, unspecified scoliosis type, unspecified spinal region M41.9 Active 550801563 Problem Arthralgia M25.50 Active 81108831 Problem Calculus of gallbladder without cholecystitis without obstruction K80.20 Active 501724765 Problem Major depressive disorder, single episode, unspecified F32.9 Active 68980239 ALLERGIES No Information ENCOUNTERS Encounter Location Date Diagnosis [place] [id number] [place] [address] 33923- 2618 Jan, [place] [id number] [place] [address] 19088- 9676 Dec, Impacted cerumen, right ear H61.21 and Dysfunction of right eustachian tube H69.[id number] [place] [address] 11874- 6084 Nov, Myalgia M79.1 and Other chronic pain G89.29 [address] [place] [address] 22041- 6488 October, Other chronic pain G89.29 and Myalgia M79.1 [facility] [id number] [place] [address] 07242- 5236 Sep, Other chronic pain G89.29 [facility] [id number] [place] [address] 80761- 5741 30 Aug, 2017 Other chronic pain G89.29 [facility] [id number] [place] [address] 88008- 0605 Aug, Scoliosis (and kyphoscoliosis), idiopathic M41.20 [facility] [address] [id number] [place] [address] 75438- 9363 Aug, [facility] [address] [address] [id number] [place] [address] 03284- 7956 12 Aug, 2017 Dysuria R30.0 ; Scoliosis, unspecified scoliosis type, unspecified spinal region M41.9 ; Encounter for therapeutic drug level monitoring Z51.81 and Alcohol use Z78.9 [facility] [id number] [place] [address] 66427- 8932 07 Aug, 2017 Other chronic pain G89.29 [facility] [id number] [place] [address] 58272- 7130 23 Jul, 2017 Chronic urinary tract infection N39.0 [facility] [address] [id number] [place] [address] 06739- 4726 Jul, Other chronic pain G89.29 [facility] [id number] [place] [address] 69909- 2084 Jun, [facility] [id number] [place] [address] 73405- 4280 Jun, [facility] [id number] [place] [address] 43366- 6447 Jun, Acute left-sided thoracic back pain M54.6 [facility] [id number] [place] [address] 74482 -8569 Jun, Cough R05 and Acute bilateral thoracic back pain M54.6 [facility] [id number] [place] [address] 01568 -1130 Jun, Back pain, unspecified back location, unspecified back pain laterality, unspecified chronicity M54.9 and Left flank pain R10.9 [place] [address] 35429- 9989 Jun, Other chronic pain G89.29 [place] [address] 32897- 9154 Jun, Myalgia M79.1 [place] [address] 99623- 4462 May, Other chronic pain G89.29 [place] [address] 34401- 1688 07 May, 2017 Myalgia M79.1 and Fatigue due to exposure, subsequent encounter T73.2XXD [place] [address] 03986- 1823 05 May, 2017 Fatigue due to exposure, subsequent encounter T73.2XXD [place] [address] [place] [id number] [place] [address] 09364- 2851 Apr, Other chronic pain G89.29 and Myalgia M79.1 [place] [address] 05097- 4107 08 Apr, 2017 Closed nondisplaced fracture of phalanx of left great toe with routine healing, unspecified phalanx, subsequent encounter S92.405D ; Dysuria R30.0 ; Localized edema R60.0 and Arthralgia M25.50 [place] [address] 69131- 0105 Mar, Other chronic pain G89.29 and Myalgia M79.1 [place] [address] 85255- 5882 Mar, [facility] [address] [address]- 2709 Mar, Dysuria R30.0 ; Other chronic pain G89.29 ; Scoliosis, unspecified scoliosis type, unspecified spinal region M41.9 and Chronic urinary tract infection N39.0 [facility] [address] [address]- 2228 Feb, Arthralgia M25.50 and Myalgia M79.1 [facility] [address] [place] [id number] [place] [address] 95295- 6444 Feb, [facility] [address] [place] [id number] [place] [address] 87125- 6548 Feb, [facility] [address] [place] [address] 32605- 8780 Feb, Closed compression fracture of L4 lumbar vertebra with routine healing, subsequent encounter S32.040D ; Closed nondisplaced fracture of phalanx of left great toe with routine healing, unspecified phalanx, subsequent encounter S92.405D and Chronic urinary tract infection N39.0 [facility] [id number] [place] [address] 70893- 6519 Jan, Closed compression fracture of fourth lumbar vertebra, initial encounter S32.040A [facility] [address] [address]- 6023 Jan, Urinary tract infection, site not specified N39.0 [facility] [address] [address]- 3756 Jan, [facility] [address] [place] [id number] [place] [address] 87269- 8676 Jan, [facility] [id number] [place] [address] 21306- 9594 Jan, Arthralgia M25.50 and Myalgia M79.1 [facility] [address] [place] [id number] [place] [address] 21447- 2389 Jan, Need for prophylaxis against urinary tract infection Z29.8 and Urinary tract infection, site not specified N39.0 [facility] [id number] [place] [address] 77899- 4284 Dec, Urinary tract infection, site not specified N39.0 and Need for prophylaxis against urinary tract infection Z29.8 [facility] [address] [place] [address] [id number] [place] [address] 98242- 5996 Dec, Major depressive disorder, single episode, unspecified F32.9 ; Myalgia M79.1 ; Arthralgia M25.50 and group home 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 Z79.891 [place] [address] [place] [id number] [place] [address] 59540- 3942 Dec, Other chronic pain G89.29 and Dysuria R30.0 [place] [address] [place] [id number] [place] [address] 62056- 4823 Nov, group home 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 Z79.891 [place] [address] [place] [id number] [place] [address] 85746- 4443 Nov, Acute midline low back pain without sciatica M54.5 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 [facility] [address] [place] [id number] [place] [address] 25263- 6609 Nov, [facility] [address] [place] [id number] [place] [address] 23615- 5910 October, [facility] [address] [place] [id number] [place] [address] 47605- 1911 October, [facility] [address] [place] [id number] [place] [address] 45959- 8639 Sep, Right leg pain M79.604 [facility] [id number] [place] [address] 60464- 9078 Sep, [facility] [address] [place] [id number] [place] [address] 26341- 6623 Aug, Right leg pain M79.604 [place] [address] [place] [id number] [place] [address] 67260- 4027 Jul, [place] [address] [place] [id number] [place] [address] 45607- 4171 Jul, Arthralgia M25.50 and Right leg pain M79.604 [place] [address] [place] [id number] [place] [address] 26275- 7694 Jun, Arthralgia M25.50 [place] [address] [place] [id number] [place] [address] 35043- 4193 Jun, [place] [address] [place] [id number] [place] [address] 45947- 5792 Jun, Right leg pain M79.604 [place] [address] [place] [id number] [place] [address] 13581- 3577 Jun, Right leg pain M79.604 [place] [address] [place] [id number] [place] [address] 09601- 5301 Jun, Abnormal mammogram of left breast R92.8 [place] [address] [place] [id number] [place] [address] 22138- 9279 May, Routine gynecological examination V72.31 ; Breast cancer screening Z12.39 ; Cervical cancer screening Z12.4 ; Colon cancer screening Z12.11 and Calculus of gallbladder without cholecystitis without obstruction K80.20 [place] [address] [place] [address] 80147- 9576 May, Arthralgia M25.50 [place] [address] [place] [id number] [place] [address] 68159- 9281 Apr, Arthralgia M25.50 [place] [address] [place] [id number] [place] [address] 10185- 2890 Apr, Screening, lipid Z13.220 [place] [address] [place] [id number] [place] [address] 89341- 0001 Apr, Other chronic pain G89.29 ; Scoliosis, unspecified scoliosis type, unspecified spinal region M41.9 ; Right leg pain M79.604 ; Major depressive disorder, single episode, unspecified F32.9 ; Fatigue due to exposure, subsequent encounter T73.2XXD ; Dysthymia F34.1 and Screening, lipid Z13.220 [place] [address] 99867- 1779 Apr, Arthralgia M25.50 [place] [address] 77983- 3032 Mar, Dysthymia 300.4 [place] [address] [place] [id number] [place] [address] 54212- 0139 Mar, Arthralgia M25.50 [place] [address] 50437- 3040 Feb, Arthralgia M25.50 [place] [address] 38798- 3240 Jan, Arthralgia M25.50 [place] [address] [place] [id number] [place] [address] 00429- 4871 Dec, 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 [place] [address] [place] [id number] [place] [address] 74087- 6498 Dec, [place] [address] [place] [id number] [place] [address] 16081- 2649 Dec, Right leg pain M79.604 and Scoliosis, unspecified scoliosis type, unspecified spinal region M41.9 [place] [address] [place] [id number] [place] [address] 04496- 2607 Dec, Right leg pain M79.604 and Scoliosis, unspecified scoliosis type, unspecified spinal region M41.9 [place] [address] [place] [id number] [place] [address] 46327- 4847 Dec, Arthralgia M25.50 [place] [address] [place] [id number] [place] [address] 41173- 4336 Nov, Arthralgia M25.50 [place] [address] [place] [id number] [place] [address] 10067- 7126 October, Arthralgia M25.50 and Scoliosis, unspecified scoliosis type , unspecified spinal region M41.9 [facility] [address] [place] [id number] [place] [address] 15158- 8440 Sep, [place] [address] 76089- 6787 Aug, [place] [address] 38147- 0415 Aug, Arthralgia M25.50 ; Myalgia M79.1 and Scoliosis M41.9 [place] [address] [place] [id number] [place] [address] 66225- 9057 Jul, Other chronic pain G89.29 [place] [address] [place] [id number] [place] [address] 43070- 6042 Jul, Other chronic pain G89.29 [place] [address] [place] [id number] [place] [address] 74789- 0725 Jul, Impingement syndrome of both shoulders M75.41 [place] [address] [place] [id number] [place] [address] 41860- 1291 Jun, [facility] [address] [place] [id number] [place] [address] 81137- 3920 Jun, [place] [address] [place] [id number] [place] [address] 31821- 6539 Jun, Scoliosis (and kyphoscoliosis), idiopathic M41.20 and Other chronic pain G89.29 [facility] [address] [id number] [place] [address] 47686 -2957 Jun, Upper respiratory tract infection, unspecified type 465.9 and Rhinorrhea J34.89 [facility] [address] [place] [id number] [place] [address] 79652- 0047 May, [facility] [address] [place] [id number] [place] [address] 49511- 0460 May, [facility] [address] 84258- 0972 Apr, Dysuria R30.0 ; Urinary tract infection, site not specified N39.0 and Hematuria, unspecified R31.9 [place] [address] 58979- 3408 Apr, [place] [address] [place] [id number] [place] [address] 31519- 4872 Mar, Family history of early CAD Z82.49 [place] [address] 43547- 5421 Mar, Other chronic pain G89.29 [place] [address] [place] [id number] [place] [address] 40145- 3499 Mar, Impingement syndrome of both shoulders M75.41 [place] [address] [place] [id number] [place] [address] 06753- 6476 Mar, Other chronic pain G89.29 ; Dysthymia F34.1 ; Family history of early CAD Z82.49 ; Dysuria R30.0 and Other specified disorders of Eustachian tube, right ear H69.81 [place] [address] [place] [id number] [place] [address] 05564- 1846 Mar, [place] [address] 65556- 2084 Feb, [place] [address] [place] [id number] [place] [address] 19218- 4010 Jan, [facility] [address] 58982- 9301 Jan, Eustachian tube dysfunction 381.81 and Dysthymia 300.4 [facility] [id number] [place] [address] 09050- 8781 Dec, [facility] [id number] [place] [address] 545655- 6071 Nov, Impingement syndrome of both shoulders 726.2 [facility] [id number] [place] [address] 26492- 2558 Nov, [facility] [address] [id number] [place] [address] 65294- 2289 Nov, [facility] [address] [id number] [place] [address] 73992- 4317 Nov, Urgency of urination 788.63 [facility] [address] [id number] [place] [address] 69683- 5915 October, [facility] [address] [id number] [place] [address] 40386- 5384 October, [facility] [id number] [place] [address] 33041- 0209 Sep, [facility] [id number] [place] [address] 44905- 7158 Sep, [facility] [id number] [place] [address] 50309- 3135 Aug, [facility] [id number] [place] [address] 99898- 4166 Aug, [facility] [id number] [place] [address] 462658- 1511 Aug, [facility] [id number] [place] [address] 503043- 0174 Aug, [facility] [address] [address]- 1181 Aug, [facility] [place] [facility] [address] [id number] [place] [address]- 9904 Aug, [facility] [place] [facility] [address] [id number] [place] [address]22 Aug, 2014 [facility] [place] [facility] [address] [id number] [place] [address]- 8757 Jul, 2014 [facility] [place] [facility] [address] [id number] [place] [address]- 3560 Jul, 2014 [facility] [place] [facility] [address] [id number] [place] [address]- 7954 Jul, 2014 [facility] [place] [facility] [address] [id number] [place] [address]- 4117 Jul, 2014 [facility] [place] [facility] [address] [facility] [id number] [place] [address]- 6885 Jul, [facility] [place] [facility] [address] [facility] [id number] [place] [address]- 6345 Jul, [facility] [place] [facility] [address] [facility] [id number] [place] [address]- 2312 Jun, [facility] [place] [facility] [address] [facility] [id number] [place] [address]- 7049 Jun, [facility] [place] [facility] [address] [facility] [id number] [place] [address]- 8212 May, [facility] [place] [facility] [address] [id number] [address]- 7559 May, [facility] [place] [facility] [address] [id number] [place] [address]- 4218 May, [facility] [place] [facility] [address] [facility] [id number] [place] 6498 May, [facility] [place] [facility] [address] [facility] [id number] [place] [address]- 1013 Mar, [facility] [place] [facility] [address] [id number] [place] [address]- 4811 Mar, [facility] [place] [facility] [address] [id number] [place] [address]- 1738 Feb, [facility] [place] [facility] [address] [id number] [place] [address]- 6422 Feb, [facility] [place] [facility] [address] [id number] [place] [address]- 4922 Jan, [facility] [place] [facility] [address] [id number] [place] [address]- 4193 Jan, [facility] [place] [facility] [address] [id number] [place] [address]- 2112 Jan, [facility] [place] [facility] [address] [id number] [place] [address]- 8486 Jan, [facility] [place] [facility] [address] [id number] [place] [address]- 8309 Jan, [facility] [place] [facility] [address] [id number] [place] [address]- 8013 Nov, [facility] [place] [facility] [address] [id number] [place] [address]- 8953 Nov, [facility] [place] [facility] [address] [id number] [place] [address]- 8597 October, [facility] [place] [facility] [address] [id number] [place] [address]- 9504 October, [facility] [place] [facility] [address] [id number] [place] [address]- 4430 October, [facility] [place] [facility] [address] [id number] [place] [address]- 5405 October, [facility] [place] [facility] [address] [id number] [place] [address]- 5468 Sep, [facility] [place] [facility] [address] [id number] [place] [address]- 7845 Aug, [facility] [place] [facility] [address] [id number] [place] [address]- 1882 Aug, [facility] [place] [facility] [address] [id number] [place] [address]- 6142 Aug, [facility] [place] [facility] [address] [id number] [place] [address]- 1173 Aug, [facility] [place] [facility] [address] [id number] [place] [address]- 1040 Jul, [facility] [place] [facility] [address] [id number] [place] [address]- 4762 Jul, [facility] [place] [facility] [address] [id number] [place] [address]- 8004 Jun, [facility] [place] [facility] [address] [id number] [place] [address]- 7587 Jun, [facility] [place] [facility] [address] [id number] [place] [address]- 7036 Jun, [facility] [place] [facility] [address] [id number] [place] [address]- 9899 Jun, [facility] [place] [facility] [address] [id number] [place] [address]- 4125 Jun, [facility] [place] [facility] [address] [id number] [place] [address]- 4013 Jun, [facility] [place] [facility] [address] [id number] [place] [address]- 1677 Mar, [facility] [place] [facility] [address] [id number] [place] [address]- 4343 Mar, [facility] [place] [facility] [address] [id number] [place] [address]- 4973 Feb, [facility] [place] [facility] [address] [id number] [place] [address]- 2546 11 Feb, 2013 [facility] [place] [facility] [address] [id number] [place] [address]- 4424 Feb, [facility] [address] [id number] [place] [address]- 5275 Jan, [facility] [place] [facility] [address] [id number] [place] [address]- 0906 Jan, [facility] [place] [facility] [address] [id number] [place] [address]- 2435 Dec, [facility] [place] [facility] [address] [id number] [place] [address]- 3201 Nov, [facility] [place] [facility] [address] [id number] [place] [address]- 3667 Sep, [facility] [place] [facility] [address] [id number] [place] 0412 Aug, [facility] [place] [facility] [address] [id number] [place] [address] Aug, [facility] [place] [facility] [address] [id number] [place] [address] Aug, [facility] [place] [facility] [address] [id number] [place] [address] Jul, [facility] [place] [facility] [address] [id number] [place] [address] Jul, [facility] [place] [facility] [address] [id number] [place] [address] Jul, [facility] [place] [facility] [address] [id number] [place] [address] Jul, [facility] [place] [facility] [address] [id number] [place] [address] Jul, [facility] [place] [facility] [address] [id number] [place] [address] Apr, [facility] [place] [facility] [address] [id number] [place] [address] Apr, [facility] [place] [facility] [address] [id number] [place] [address] Jan, [facility] [address] [id number] [place] [address] Jan, [facility] [address] [id number] [place] [address] Dec, [facility] [address] [id number] [place] [address] Dec, [facility] [address] [id number] [place] [address] Dec, [facility] [address] [id number] [place] [address] Dec, [facility] [address] [id number] [place] [address] Dec, [facility] [address] [id number] [place] [address] October, [facility] [address] [id number] [place] [address] Aug, [facility] [address] [id number] [place] [address] Aug, [facility] [address] [id number] [place] [address] Aug, [facility] [address] [id number] [place] [address] Jul, [facility] [address] [id number] [place] [address] May, [facility] [place] [facility] [address] [id number] [place] [address] Apr, [facility] [address] [id number] [place] [address] May, [facility] [address] [id number] [place] [address] May, [facility] [address] [facility] [id number] [address] May, [facility] [address] [facility] [id number] [place] [address] Mar, [facility] [address] [facility] [id number] [place] [address] Mar, [facility] [address] [facility] [id number] [place] [address] Aug, IMMUNIZATIONS No Known Immunizations SOCIAL HISTORY Never Assessed REASON FOR VISIT Controlled Med Refill 08/31/17 PLAN OF CARE VITAL SIGNS MEDICATIONS Medication Instructions Dosage Frequency Start Date End Date Duration Status Percocet 10-325 MG Orally 5 times per day 1 tablet as needed Aug, 28 days Active RESULTS No Results PROCEDURES No Known procedures INSTRUCTIONS MEDICATIONS ADMINISTERED No Known Medications MEDICAL (GENERAL) HISTORY Type Description Date Medical History chronic pain Medical History arthritis Surgical History Nephrectomy - age 3 Surgical History Appendectomy Hospitalization History surgery Hospitalization History childbirth x 3
--- OUTSIDE RECORDS SUMMARY | 2018-06-07 13:28 | XMS REPORT ---
Author Author TAIWO HUYNH [facility] Address [address] [place] [address] Care Team Providers Care Ship Loader Name Role Phone TAIWO HUYNH Unavailable PROBLEMS Type Condition ICD9-CM Code [id number] Code Onset Dates Condition Status SNOMED Code Problem Scoliosis (and kyphoscoliosis), idiopathic M41.20 Active 18573090 Problem Myalgia M79.1 Active 30999307 Problem Other chronic pain G89.29 Active 25982436 Problem Urinary urgency R39.15 Active 08858296 Problem Dysthymia F34.1 Active 65168043 Problem Varicose veins I86.8 Active 259352354 Problem Need for prophylaxis against urinary tract infection Z29.8 Active 269538643 Problem Abnormal mammogram of left breast R92.8 Active 218371426 Problem Scoliosis, unspecified scoliosis type, unspecified spinal region M41.9 Active 426893891 Problem Arthralgia M25.50 Active 47219001 Problem Calculus of gallbladder without cholecystitis without obstruction K80.20 Active 272827254 Problem Major depressive disorder, single episode, unspecified F32.9 Active 43977099 ALLERGIES Substance Reaction Event Type Date Status Sulfamethoxazole-Trimethoprim Unknown Drug Allergy Jun, Active Aspirin Unknown Drug Allergy Jun, Active ENCOUNTERS Encounter Location Date Diagnosis [facility] [id number] [address] October, Other chronic pain G89.29 and Myalgia M79.1 [facility] [id number] [address] Sep, Other chronic pain G89.29 [facility] [id number] [address] Aug, Other chronic pain G89.29 [facility] [id number] [place] [address] 24446- 8911 29 Aug, 2017 Scoliosis (and kyphoscoliosis), idiopathic M41.20 [facility] [id number] [place] [address] 62973- 8248 Aug, [facility] [id number] [place] [address] 94836- 7933 12 Aug, 2017 Dysuria R30.0 ; Scoliosis, unspecified scoliosis type, unspecified spinal region M41.9 ; Encounter for therapeutic drug level monitoring Z51.81 and Alcohol use Z78.9 [id number] [place] [address] 70836- 7647 07 Aug, 2017 Other chronic pain G89.29 [address] [id number] [place] [address] 40148- 7873 23 Jul, 2017 Chronic urinary tract infection N39.0 [address] [place] [id number] [place] [address] 30466- 5190 07 Jul, 2017 Other chronic pain G89.29 [address] [id number] [place] [address] 94578- 3288 Jun, [address] [id number] [place] [address] 80728- 3059 Jun, [id number] [place] [address] 01439- 9524 Jun, Acute left-sided thoracic back pain M54.6 [facility] [id number] [place] [address] 66344 -7749 18 Jun, 2017 Cough R05 and Acute bilateral thoracic back pain M54.6 [facility] [id number] [place] [address] 33028 -3228 15 Jun, 2017 Back pain, unspecified back location, unspecified back pain laterality, unspecified chronicity M54.9 and Left flank pain R10.9 [id number] [place] [address] 43170- 4867 Jun, Other chronic pain G89.29 [address] [id number] [place] [address] 33249- 2708 Jun, Myalgia M79.1 [address] [id number] [place] [address] 99569- 2679 May, Other chronic pain G89.29 [address] [id number] [place] [address] 31603- 7517 May, Myalgia M79.1 and Fatigue due to exposure, subsequent encounter T73.2XXD [address] [id number] [place] [address] 61002- 7544 05 May, 2017 Fatigue due to exposure, subsequent encounter T73.2XXD [address] [place] [id number] [place] [address] 29201- 8752 15 Apr, 2017 Other chronic pain G89.29 and Myalgia M79.1 [address] [place] [id number] [place] [address] 87132- 4596 08 Apr, 2017 Closed nondisplaced fracture of phalanx of left great toe with routine healing, unspecified phalanx, subsequent encounter S92.405D ; Dysuria R30.0 ; Localized edema R60.0 and Arthralgia M25.50 [id number] [place] [address] 20104- 5928 Mar, Other chronic pain G89.29 and Myalgia M79.1 [id number] [place] [address] 25823- 6708 Mar, [id number] [place] [address] 62441- 7725 Mar, Dysuria R30.0 ; Other chronic pain G89.29 ; Scoliosis, unspecified scoliosis type, unspecified spinal region M41.9 and Chronic urinary tract infection N39.0 [id number] [place] [address] 05878- 1349 Feb, Arthralgia M25.50 and Myalgia M79.1 [facility] [address] [address] Feb, [facility] [address] [address] 6[address] Feb, [facility] [id number] [place] [address] 81034- 9822 Feb, Closed compression fracture of L4 lumbar vertebra with routine healing, subsequent encounter S32.040D ; Closed nondisplaced fracture of phalanx of left great toe with routine healing, unspecified phalanx, subsequent encounter S92.405D and Chronic urinary tract infection N39.0 [facility] [address] [place] [address] 28304- 5078 Jan, Closed compression fracture of fourth lumbar vertebra, initial encounter S32.040A [facility] [address] [place] [address] 93625- 3709 Jan, Urinary tract infection, site not specified N39.0 [facility] [address] [address] 2[address] Jan, [facility] [id number] [place] [address] 89883- 5436 Jan, [facility] [address] [place] [address] 48566- 8499 Jan, Arthralgia M25.50 and Myalgia M79.1 [facility] [address] [place] [address] 98996- 0754 Jan, Need for prophylaxis against urinary tract infection Z29.8 and Urinary tract infection, site not specified N39.0 [facility] [address] [place] [address] 07680- 2082 Dec, Urinary tract infection, site not specified N39.0 and Need for prophylaxis against urinary tract infection Z29.8 [facility] [address] [place] [address] 07934- 3120 Dec, Major depressive disorder, single episode, unspecified F32.9 ; Myalgia M79.1 ; Arthralgia M25.50 and top steep tender 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 Z79.891 [facility] [id number] [place] [address] 42590- 4178 Dec, Other chronic pain G89.29 and Dysuria R30.0 [facility] [address] 82007- 1402 Nov, prison 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 Z79.891 [address] 35648- 9368 Nov, Acute midline low back pain without sciatica M54.5 and top steep tender 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 Z79.891 [address] [id number] [place] [address] 34110- 4346 Nov, [facility] [address] 94727- 1653 October, [facility] [address] 64917- 5553 October, [facility] [id number] [place] [address] 86083- 6068 Sep, Right leg pain M79.604 [address] [id number] [place] [address] 10330- 5561 Sep, [facility] [id number] [place] [address] 39576- 7166 Aug, Right leg pain M79.604 [facility] [address] 56756- 8896 Jul, [facility] [id number] [place] [address] 61460- 4328 Jul, Arthralgia M25.50 and Right leg pain M79.604 [address] [address] Jun, Arthralgia M25.50 [address] [id number] [place] [address] 76269- 3533 Jun, [address] [id number] [place] [address] 01715- 4582 Jun, Right leg pain M79.604 [address] [id number] [place] [address] 99582- 1409 Jun, Right leg pain M79.604 [address] [id number] [place] [address] 39272- 8219 Jun, Abnormal mammogram of left breast R92.8 [address] [id number] [place] [address] 82246- 8833 May, Routine gynecological examination V72.31 ; Breast cancer screening Z12.39 ; Cervical cancer screening Z12.4 ; Colon cancer screening Z12.11 and Calculus of gallbladder without cholecystitis without obstruction K80.20 [id number] [place] [address] 63318- 9517 May, Arthralgia M25.50 [address] [id number] [place] [address] 62208- 0055 29 Apr, 2016 Arthralgia M25.50 [address] [id number] [place] [address] 78536- 9641 17 Apr, 2016 Screening, lipid Z13.220 [address] [id number] [place] [address] 33089- 6818 14 Apr, 2016 Other chronic pain G89.29 ; Scoliosis, unspecified scoliosis type, unspecified spinal region M41.9 ; Right leg pain M79.604 ; Major depressive disorder, single episode, unspecified F32.9 ; Fatigue due to exposure, subsequent encounter T73.2XXD ; Dysthymia F34.1 and Screening, lipid Z13.220 [id number] [address] 8463 Apr, Arthralgia M25.50 [facility] [id number] [place] [address] 20805- 5763 Mar, Dysthymia 300.4 [facility] [address] [place] [address] 91202- 1180 Mar, Arthralgia M25.50 [facility] [id number] [place] [address] 26034- 2150 Feb, Arthralgia M25.50 [facility] [id number] [place] [address] 02437- 0648 Jan, Arthralgia M25.50 [facility] [id number] [place] [address] 93046- 6993 Dec, 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 [facility] [id number] [place] [address] 39388- 2704 Dec, [facility] [id number] [place] [address] 97592- 6545 Dec, Right leg pain M79.604 and Scoliosis, unspecified scoliosis type, unspecified spinal region M41.9 [facility] [address] [place] [address] 97911- 7421 Dec, Right leg pain M79.604 and Scoliosis, unspecified scoliosis type, unspecified spinal region M41.9 [facility] [id number] [place] [address] 04552- 4938 Dec, Arthralgia M25.50 [facility] [id number] [place] [address] 23351- 9485 Nov, Arthralgia M25.50 [facility] [address] [place] [address] 78696- 2066 October, Arthralgia M25.50 and Scoliosis, unspecified scoliosis type , unspecified spinal region M41.9 [facility] [id number] [place] [address] 30761- 4198 Sep, [facility] [address] 31447- 1870 Aug, [facility] [address] 12455- 1303 Aug, Arthralgia M25.50 ; Myalgia M79.1 and Scoliosis M41.9 [facility] [address] 46004- 9492 Jul, Other chronic pain G89.29 [facility] [address] 42980- 5204 Jul, Other chronic pain G89.29 [address] 24564- 5828 Jul, Impingement syndrome of both shoulders M75.41 [address] [address] 42230- 6944 Jun, [facility] [address] 16306- 4099 Jun, [facility] [address] 50324- 9188 Jun, Scoliosis (and kyphoscoliosis), idiopathic M41.20 and Other chronic pain G89.29 [facility] [id number] [place] [address] 93841 -0273 Jun, Upper respiratory tract infection, unspecified type 465.9 and Rhinorrhea J34.89 [facility] [address] 10004- 0021 May, [facility] [address] 39748- 4785 May, [facility] [address] 89790- 3247 Apr, Dysuria R30.0 ; Urinary tract infection, site not specified N39.0 and Hematuria, unspecified R31.9 [facility] [id number] [place] [address] 83341- 9549 Apr, [facility] [id number] [place] [address] 33698- 7563 Mar, Family history of early CAD Z82.49 [facility] [address] 59837- 4675 Mar, Other chronic pain G89.29 [facility] [address] 52337- 5280 Mar, Impingement syndrome of both shoulders M75.41 [facility] [id number] [place] [address] 35859- 7938 Mar, Other chronic pain G89.29 ; Dysthymia F34.1 ; Family history of early CAD Z82.49 ; Dysuria R30.0 and Other specified disorders of Eustachian tube, right ear H69.81 [facility] [id number] [place] [address] 48349- 2310 Mar, [facility] [id number] [place] [address] 21294- 5991 Feb, [facility] [id number] [place] [address] 31012- 6229 Jan, [facility] [id number] [place] [address] 98320- 3227 Jan, Eustachian tube dysfunction 381.81 and Dysthymia 300.4 [facility] [id number] [place] [address] 22577- 2954 Dec, [facility] [id number] [place] [address] 40136- 4614 Nov, Impingement syndrome of both shoulders 726.2 [facility] [id number] [place] [address]- 5608 Nov, [facility] [address] [facility] [id number] [place] 7229 Nov, [facility] [id number] [place] [address]- 7942 Nov, Urgency of urination 788.63 [facility] [address] [facility] [id number] [place] [address], [place] [address]- 4616 October, [facility] [address] [id number] [place] [address]- 1241 October, [facility] [address] [facility] [id number] [place] [address]- 9203 Sep, [facility] [id number] [place] [address]- 6227 Sep, [facility] [id number] [address]- 2534 Aug, [facility] [address] [facility] [id number] [place] [address]- 0530 Aug, [facility] [id number] [place] [address]- 1014 Aug, [facility] [id number] [place] [address]- 4597 Aug, [facility] [address] [facility] [id number] [address]- 0689 Aug, [facility] [address] [facility] [id number] [place]- 8581 Aug, [facility] [address] [facility] [id number] [place]- 9338 Aug, [facility] [address] [facility] [id number] [address]- 8271 Jul, [facility] [id number] [address]- 0392 Jul, 2014 [facility] [place] [facility] [address] [id number] [place] [address]- 7492 Jul, 2014 [facility] [place] [facility] [address] [id number] [place] [address]- 2266 Jul, 2014 [facility] [place] [facility] [address] [id number] [place] [address]- 8226 Jul, 2014 [facility] [place] [facility] [address] [id number] [place] [address]- 6235 Jul, [facility] [place] [facility] [address] [id number] [place] [address]- 6034 Jun, [facility] [place] [facility] [address] [id number] [place] [address]- 7879 Jun, [facility] [place] [facility] [address] [facility] [id number] [place] [address]- 5753 May, [facility] [place] [facility] [address] [id number] [place] [address]- 6722 May, [facility] [place] [facility] [address] [facility] [id number] [place] [address]- 8445 May, [facility] [place] [facility] [address] [facility] [id number] [place] [address]- 6725 May, [facility] [place] [facility] [address] [facility] [id number] [place] [address]- 1895 Mar, [facility] [place] [facility] [address] [id number] [place] [address]- 5047 Mar, [facility] [place] [facility] [address] [id number] [place] [address]- 9260 Feb, [facility] [place] [facility] [address] [id number] [place] [address]- 8084 Feb, [facility] [place] [facility] [address] [id number] [place] 7321 Jan, [facility] [place] [facility] [address] [id number] [place] [address]- 8133 Jan, [facility] [place] [facility] [address] [id number] [place] [address]- 8525 Jan, [facility] [place] [facility] [address] [id number] [place] [address]- 5707 Jan, [facility] [place] [facility] [address] [id number] [place] [address]- 6818 Jan, [facility] [place] [facility] [address] [id number] [place] [address]- 6764 Nov, [facility] [place] [facility] [address] [id number] [place] [address]- 2012 Nov, [facility] [place] [facility] [address] [id number] [place] [address]- 1597 October, [facility] [place] [facility] [address] [id number] [place] [address]- 9006 October, [facility] [place] [facility] [address] [id number] [place] [address]- 0305 October, [facility] [place] [facility] [address] [id number] [place] [address]- 1128 October, [facility] [place] [facility] [address] [id number] [place] [address]- 5209 Sep, [facility] [place] [facility] [address] [id number] [place] [address]- 7953 Aug, [facility] [place] [facility] [address] [id number] [place] [address]- 3133 Aug, [facility] [place] [facility] [address] [id number] [place] [address]- 2618 Aug, [facility] [place] [facility] [address] [id number] [place] [address]- 3447 Aug, [facility] [place] [facility] [address] [id number] [place] [address]- 5276 Jul, [facility] [place] [facility] [address] [id number] [place] [address]- 2492 Jul, [facility] [place] [facility] [address] [id number] [place] [address]- 9071 Jun, [facility] [place] [facility] [address] [id number] [place] [address]- 1959 Jun, [facility] [place] [facility] [address] [id number] [place] [address]- 2568 Jun, [facility] [place] [facility] [address] [id number] [place] [address]- 6328 Jun, [facility] [place] [facility] [address] [id number] [place] [address]- 7933 Jun, [facility] [place] [facility] [address] [id number] [place] [address]- 6446 Jun, [facility] [place] [facility] [address] [id number] [place] [address]- 4397 Mar, [facility] [place] [facility] [address] [id number] [place] [address]- 8347 Mar, [facility] [place] [facility] [address] [id number] [place] [address]- 0176 Feb, [facility] [place] [facility] [address] [id number] [place] [address]- 9089 Feb, [facility] [place] [facility] [address] [id number] [place] [address] Feb, [facility] [place] [facility] [address] [id number] [place] [address] Jan, [facility] [place] [facility] [address] [id number] [place] [address] Jan, [facility] [place] [facility] [address] [id number] [place] [address] Dec, [facility] [place] [facility] [address] [id number] [place] [address] Nov, [facility] [address] [id number] [place] [address] Sep, [facility] [place] [facility] [address] [id number] [place] [address] Aug, [facility] [address] [id number] [place] [address] Aug, [facility] [place] [facility] [address] [id number] [place] [address] Aug, [facility] [address] [id number] [place] [address] Jul, [facility] [address] [id number] [place] [address] Jul, [facility] [address] [id number] [place] [address] Jul, [facility] [address] [id number] [place] [address] Jul, [facility] [address] [id number] [place] [address] Jul, [facility] [address] [id number] [place] [address] Apr, [facility] [address] [id number] [place] [address] Apr, [facility] [place] [facility] [address] [id number] [place] [address] Jan, [facility] [place] [facility] [address] [id number] [place] [address] Jan, [facility] [place] [facility] [address] [id number] [place] [address] Dec, [facility] [place] [facility] [address] [id number] [place] [address] Dec, [facility] [place] [facility] [address] [id number] [place] [address] Dec, [facility] [place] [facility] [address] [id number] [place] [address] Dec, [facility] [place] [facility] [address] [id number] [place] [address] Dec, [facility] [place] [facility] [address] [id number] [place] [address] October, [facility] [place] [facility] [address] [id number] [place] [address] Aug, [facility] [place] [facility] [address] [id number] [place] [address] Aug, [facility] [place] [facility] [address] [id number] [place] [address] Aug, [facility] [place] [facility] [address] [id number] [place] [address] Jul, [facility] [place] [facility] [address] [id number] [place] [address] May, [facility] [place] [facility] [address] [id number] [place] [address] Apr, [facility] [place] [facility] [address] [id number] [place] [address] 30 May, 2010 [facility] [place] [facility] [address] [id number] [place] [address] May, [facility] [place] [facility] [address] [id number] [place] [address] May, [facility] [place] [facility] [address] [id number] [place] [address] Mar, [facility] [place] [facility] [address] [id number] [place] [address] Mar, [facility] [place] [facility] [address] [facility] [id number] [place] [address] Aug, IMMUNIZATIONS No Known Immunizations SOCIAL HISTORY Never Assessed REASON FOR VISIT back pain left sided started Sat JStrasserRN PLAN OF CARE Activity Details Follow Up prn Reason: VITAL SIGNS Height 66.5 in 2017-07-10 Weight 176.4 lbs 2017-07-10 Temperature 97.2 degrees Fahrenheit 2017-07-10 Heart Rate 66 bpm 2017-07-10 Respiratory Rate 18 2017-07-10 BMI 28.04 kg/m2 2017-07-10 Blood pressure systolic 140 mmHg 2017-07-10 Blood pressure diastolic 86 mmHg 2017-07-10 MEDICATIONS Medication Instructions Dosage Frequency Start Date End Date Duration Status Percocet 10-325 MG Orally 5 times per day 1 tablet as needed Jun, 28 days Active Fluoxetine HCl 40 mg Orally Once a day 1 capsule 24h Dec, 30 days Active Premarin 0.625 MG/GM Vaginal 3 times a week as directed Mar, Active Vitamin D3 52006 UNIT Orally once weekly 1 capsule May, Active Lyrica 150 MG Orally 3 times a day 1 capsule 8h Apr, 30 days Active RESULTS Name Result Date Reference Range UA LONG DIP (IN HOUSE) 2017-07-10 Lot # [id number] Exp date 2018-03-25 Clarity clear Color yellow Odor none GLU negative MAIKEL negative KET negative SG 1.015 BLO trace-intact pH 6.0 Protein negative URO 0.2 NIT negative SLIM negative Lot # [id number] Exp date September 2017 PROCEDURES Procedure Date Ordered Result Body Site URINALYSIS, AUTO, W/O SCOPE Jul 10, 2017 URINE CULTURE/COLONY COUNT Jul 10, 2017 INSTRUCTIONS MEDICATIONS ADMINISTERED No Known Medications MEDICAL (GENERAL) HISTORY Type Description Date Medical History chronic pain Medical History arthritis Surgical History Nephrectomy - age 3 Surgical History Appendectomy Hospitalization History surgery Hospitalization History childbirth x 3
--- OUTSIDE RECORDS SUMMARY | 2018-06-07 13:28 | XMS REPORT ---
Author Author CHUY NGUYEN [facility] Address [address] [place] [address] Care Team Providers Care King Maker Name Role Phone CHUY NGUYEN Unavailable PROBLEMS Type Condition ICD9-CM Code NGD07-GG Code Onset Dates Condition Status SNOMED Code Problem Scoliosis (and kyphoscoliosis), idiopathic M41.20 Active 31146028 Problem Myalgia M79.1 Active 98514330 Problem Other chronic pain G89.29 Active 24994525 Problem Urinary urgency R39.15 Active 14845508 Problem Dysthymia F34.1 Active 82101610 Problem Varicose veins I86.8 Active 671570549 Problem Need for prophylaxis against urinary tract infection Z29.8 Active 512363106 Problem Abnormal mammogram of left breast R92.8 Active 600087633 Problem Scoliosis, unspecified scoliosis type, unspecified spinal region M41.9 Active 136743125 Problem Arthralgia M25.50 Active 60104960 Problem Calculus of gallbladder without cholecystitis without obstruction K80.20 Active 798014247 Problem Major depressive disorder, single episode, unspecified F32.9 Active 57259715 ALLERGIES Substance Reaction Event Type Date Status Sulfamethoxazole-Trimethoprim Unknown Drug Allergy Dec, Active Aspirin Unknown Drug Allergy Dec, Active ENCOUNTERS Encounter Location Date Diagnosis [facility] [id number], [place] [address] Aug, Other chronic pain G89.29 [facility] [id number] [place] [address] 69228- 0099 Aug, Scoliosis (and kyphoscoliosis), idiopathic M41.20 [facility] [address] [id number], [place] [address] Aug, [facility] [id number] [place] [address] 18524- 8540 Aug, Dysuria R30.0 ; Scoliosis, unspecified scoliosis type, unspecified spinal region M41.9 ; Encounter for therapeutic drug level monitoring Z51.81 and Alcohol use Z78.9 [facility] [id number] [place] [address] 27574- 5964 07 Aug, 2017 Other chronic pain G89.29 [facility] [id number] [place] [address] 27050- 9450 Jul, Chronic urinary tract infection N39.0 [facility] [id number] [place] [address] 03111- 4130 Jul, Other chronic pain G89.29 [facility] [id number] [place] [address] 46650- 4044 Jun, [facility] [id number] [place] [address] 33586- 3529 Jun, [facility] [id number] [place] [address] 86326- 9666 Jun, Acute left-sided thoracic back pain M54.6 [facility] [id number] [place] [address] 55778 -5182 Jun, Cough R05 and Acute bilateral thoracic back pain M54.6 [facility] [place] [id number] [place] [address] 61416 -1192 15 Jun, 2017 Back pain, unspecified back location, unspecified back pain laterality, unspecified chronicity M54.9 and Left flank pain R10.9 [place] [facility] [id number] [place] [address] 22070- 7659 Jun, Other chronic pain G89.29 [facility] [id number] [place] [address] 34926- 1236 Jun, Myalgia M79.1 [facility] [id number] [place] [address] 64380- 6746 May, Other chronic pain G89.29 [place] [id number] [place] [address] 29446- 6141 May, Myalgia M79.1 and Fatigue due to exposure, subsequent encounter T73.2XXD [facility] [facility] [id number] [place] [address] 92490- 6528 05 May, 2017 Fatigue due to exposure, subsequent encounter T73.2XXD [facility] [id number] [place] [address] 99152- 8943 Apr, Other chronic pain G89.29 and Myalgia M79.1 [facility] [id number] [place] [address] 45837- 6831 08 Apr, 2017 Closed nondisplaced fracture of phalanx of left great toe with routine healing, unspecified phalanx, subsequent encounter S92.405D ; Dysuria R30.0 ; Localized edema R60.0 and Arthralgia M25.50 [place] [facility] [id number] [place] [address] 59415- 0799 Mar, Other chronic pain G89.29 and Myalgia M79.1 [facility] [id number] [place] [address] 70217- 9485 Mar, [facility] [id number] [place] [address] 74181- 3509 Mar, Dysuria R30.0 ; Other chronic pain G89.29 ; Scoliosis, unspecified scoliosis type, unspecified spinal region M41.9 and Chronic urinary tract infection N39.0 [place] [id number] [place] [address] 29105- 0676 20 Feb, 2017 Arthralgia M25.50 and Myalgia M79.1 [place] [id number] [place] [address] 13246- 9322 13 Feb, 2017 [facility] [id number] [place] [address] 34818- 8907 Feb, [place] [address], [place] [address] 6942 Feb, Closed compression fracture of L4 lumbar vertebra with routine healing, subsequent encounter S32.040D ; Closed nondisplaced fracture of phalanx of left great toe with routine healing, unspecified phalanx, subsequent encounter S92.405D and Chronic urinary tract infection N39.0 [place] [id number] [place] [address] 17874- 8337 Jan, Closed compression fracture of fourth lumbar vertebra, initial encounter S32.040A [facility] [facility] [id number] [place] [address] 73722- 2145 Jan, Urinary tract infection, site not specified N39.0 [place] [id number] [place] [address] 38488- 0247 Jan, [facility] [id number] [place] [address] 87520- 0686 Jan, [place] [id number] [place] [address] 52166- 5157 Jan, Arthralgia M25.50 and Myalgia M79.1 [place] [id number] [place] [address] 59735- 9273 Jan, Need for prophylaxis against urinary tract infection Z29.8 and Urinary tract infection, site not specified N39.0 [place] [address], [place] [address] 8677 Dec, Urinary tract infection, site not specified N39.0 and Need for prophylaxis against urinary tract infection Z29.8 [place] [address] [place] [address] 76759- 1679 Dec, Major depressive disorder, single episode, unspecified F32.9 ; Myalgia M79.1 ; Arthralgia M25.50 and jail 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 Z79.891 [place] [address] [place] [address] 48825- 7910 Dec, Other chronic pain G89.29 and Dysuria R30.0 [facility] [id number] [place] [address] 97196- 4462 Nov, 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 [facility] [id number] [place] [address] 54706- 6555 Nov, Acute midline low back pain without sciatica M54.5 and 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 [facility] [id number] [place] [address] 58832- 3070 Nov, [facility] [address] 09001- 0622 October, [facility] [id number] [place] [address] 33576- 8504 October, [facility] [address] 69876- 8530 Sep, Right leg pain M79.604 [facility] [id number] [place] [address] 90015- 0042 Sep, [facility] [id number] [place] [address] 77630- 5075 Aug, Right leg pain M79.604 [facility] [id number] [place] [address] 70163- 6839 Jul, [facility] [id number] [place] [address] 67367- 8692 Jul, Arthralgia M25.50 and Right leg pain M79.604 [facility] [id number] [place] [address] 99723- 4620 Jun, Arthralgia M25.50 [facility] [id number] [place] [address] 48868- 7332 Jun, [facility] [id number] [place] [address] 22977- 5110 Jun, Right leg pain M79.604 [facility] [facility] [id number] [place] [address] 38740- 3526 Jun, Right leg pain M79.604 [facility] [id number] [place] [address] 69484- 1957 Jun, Abnormal mammogram of left breast R92.[address] 83389- 7642 May, Routine gynecological examination V72.31 ; Breast cancer screening Z12.39 ; Cervical cancer screening Z12.4 ; Colon cancer screening Z12.11 and Calculus of gallbladder without cholecystitis without obstruction K80.20 [id number] [place] [address] 70214- 9507 May, Arthralgia M25.[address] 08249- 5703 Apr, Arthralgia M25.50 [place] [id number] [place] [address] 49388- 1645 Apr, Screening, lipid Z13.220 [id number] [place] [address] 85882- 8083 14 Apr, 2016 Other chronic pain G89.29 ; Scoliosis, unspecified scoliosis type, unspecified spinal region M41.9 ; Right leg pain M79.604 ; Major depressive disorder, single episode, unspecified F32.9 ; Fatigue due to exposure, subsequent encounter T73.2XXD ; Dysthymia F34.1 and Screening, lipid Z13.[address] 20011- 0178 Apr, Arthralgia M25.50 [place] [id number] [place] [address] 29999- 2159 Mar, Dysthymia 300.[address] 84796- 5242 Mar, Arthralgia M25.50 [facility] [id number] [place] [address] 24906- 3338 Feb, Arthralgia M25.50 [facility] [id number] [place] [address] 52759- 0160 Jan, Arthralgia M25.50 [facility] [id number] [place] [address] 34503- 0902 Dec, 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 [facility] [id number] [place] [address] 96473- 6043 Dec, [facility] [id number] [place] [address] 15428- 5380 Dec, Right leg pain M79.604 and Scoliosis, unspecified scoliosis type, unspecified spinal region M41.9 [facility] [id number] [place] [address] 25071- 2364 Dec, Right leg pain M79.604 and Scoliosis, unspecified scoliosis type, unspecified spinal region M41.9 [facility] [id number] [place] [address] 54088- 1542 Dec, Arthralgia M25.50 [facility] [id number] [place] [address] 30893- 2089 Nov, Arthralgia M25.50 [facility] [id number] [place] [address] 14779- 1631 October, Arthralgia M25.50 and Scoliosis, unspecified scoliosis type , unspecified spinal region M41.9 [facility] [id number] [place] [address] 88407- 2161 Sep, [facility] [id number] [place] [address] 40554- 6588 Aug, [facility] [id number] [place] [address] 16662- 7802 Aug, Arthralgia M25.50 ; Myalgia M79.1 and Scoliosis M41.9 [address] [address] 42053- 3284 Jul, Other chronic pain G89.29 [facility] [address] 49448- 4848 Jul, Other chronic pain G89.29 [facility] [address] 50551- 4116 Jul, Impingement syndrome of both shoulders M75.41 [place] [address] 50775- 8806 Jun, [facility] [address] 01745- 0240 Jun, [place] [address] 96486- 2337 Jun, Scoliosis (and kyphoscoliosis), idiopathic M41.20 and Other chronic pain G89.29 [facility] [address] 56871 -6671 Jun, Upper respiratory tract infection, unspecified type 465.9 and Rhinorrhea J34.89 [facility] [id number] [place] [address] 04025- 9822 May, [facility] [address] 80865- 1324 May, [facility] [id number] [place] [address] 56615- 1318 Apr, Dysuria R30.0 ; Urinary tract infection, site not specified N39.0 and Hematuria, unspecified R31.9 [facility] [id number] [place] [address] 95755- 4011 Apr, [facility] [address] [place] [address]- 7857 Mar, Family history of early CAD Z82.49 [facility] [address] 91661- 4295 Mar, Other chronic pain G89.29 [facility] [id number] [place] [address] 82272- 3687 Mar, Impingement syndrome of both shoulders M75.41 [facility] [address] 31603- 7221 Mar, Other chronic pain G89.29 ; Dysthymia F34.1 ; Family history of early CAD Z82.49 ; Dysuria R30.0 and Other specified disorders of Eustachian tube, right ear H69.81 [facility] [id number] [place] [address] 56562- 2786 Mar, [facility] [address] 00768- 7232 Feb, [facility] [address] 32693- 4383 Jan, [facility] [address] 71680- 4821 Jan, Eustachian tube dysfunction 381.81 and Dysthymia 300.4 [facility] [id number] [place] [address] 27562- 7039 Dec, [facility] [id number] [place] [address] 74575- 0809 Nov, Impingement syndrome of both shoulders 726.2 [facility] [address] 72422- 3693 Nov, [facility] [id number] [place] [address] 42888- 4582 Nov, [facility] [address] 90667- 1871 Nov, Urgency of urination 788.63 [facility] [address] [id number] [place] [address]- 6906 October, [facility] [address] [id number] [place] 2256 October, [facility] [address] [facility] [id number] [place] [address]- 3036 Sep, [facility] [address] [id number], [place] [address]- 3088 Sep, [facility] [address] [id number] [place] [address]- 0114 Aug, [facility] [address] [facility] [id number] [place] [address]- 5442 Aug, [facility] [address] [place] [address]- 0932 Aug, [facility] [address] [facility] [id number] [place] [address]- 1574 Aug, [facility] [address] [facility] [id number] [place] [address]- 3373 Aug, [facility] [address] [facility] [id number], [place] [address]- 0653 Aug, [facility] [address] [facility] [id number], [place] [address]- 4757 Aug, [facility] [place] [facility] [address] [facility] [id number], [place] [address]- 5016 Jul, [facility] [place] [facility] [address] [facility] [id number] [place] 0122 Jul, [facility] [place] [facility] [address] [facility] [id number] 3375 Jul, [facility] [place] [facility] [id number], [place] [address]- 9268 Jul, [facility] [place] [facility] [address] [id number] [place] [address]- 9596 Jul, [facility] [place] [facility] [address] [id number] [place] [address]- 6509 Jul, [facility] [place] [facility] [address] [id number] [place] [address]- 9433 Jun, [facility] [place] [facility] [address] [id number] [place] [address]- 6266 Jun, [facility] [place] [facility] [address] [id number] [place] [address]- 6824 May, [facility] [place] [facility] [address] [id number] [place] [address]- 3119 May, [facility] [place] [facility] [address] [facility] [id number] [place] [address]- 2303 May, [facility] [place] [facility] [address] [id number] [place] [address]- 0834 May, [facility] [place] [facility] [address] [id number] [place] [address]- 8903 Mar, [facility] [place] [facility] [address] [id number] [place] [address]- 3092 Mar, [facility] [place] [facility] [address] [id number] [place] [address]- 7431 Feb, [facility] [place] [facility] [address] [id number] [place] [address]- 6355 Feb, [facility] [place] [facility] [address] [id number] [place] [address]- 5939 Jan, [facility] [place] [facility] [address] [id number] [place] [address]- 9797 Jan, [facility] [place] [facility] [address] [id number] [place] [address]- 0089 Jan, [facility] [place] [facility] [address] [id number] [place] [address]- 5586 Jan, [facility] [place] [facility] [address] [id number] [place] 3738 Jan, [facility] [place] [facility] [address] [id number] [place] [address]- 2673 Nov, [facility] [place] [facility] [address] [id number] [place] [address]- 5260 Nov, [facility] [place] [facility] [address] [id number] [place] [address]- 0064 October, [facility] [place] [facility] [address] [id number] [place] 0153 October, [facility] [place] [facility] [address] [id number] [place] [address]- 1461 October, [facility] [place] [facility] [address] [id number] [place] [address]- 2109 October, [facility] [place] [facility] [address] [id number] [place] [address]- 7475 Sep, [facility] [place] [facility] [address] [id number] [place] [address]- 7131 Aug, [facility] [place] [facility] [address] [id number] [place] [address]- 8046 Aug, [facility] [place] [facility] [address] [id number] [place] [address]- 3441 Aug, [facility] [place] [facility] [address] [id number] [place] [address]- 5515 Aug, [facility] [place] [facility] [address] [id number] [place] [address]- 6426 Jul, [facility] [place] [facility] [address] [id number] [place] [address]- 8493 Jul, [facility] [place] [facility] [address] [id number] [place] [address]- 0340 Jun, [facility] [place] [facility] [address] [id number] [place] [address]- 8507 Jun, [facility] [address] [id number] [place] [address]- 6196 Jun, [facility] [address] [id number] [place] [address]- 2576 Jun, [facility] [address] [id number] [place] [address]- 4428 Jun, [facility] [address] [id number] [place] [address]- 3257 Jun, [facility] [address] [id number] [place] [address]- 9749 Mar, [facility] [address] [id number] [place] [address]- 8410 Mar, [facility] [address] [id number] [place] [address]- 8560 Feb, [facility] [address] [id number] [place] [address]- 5419 Feb, [facility] [address] [id number] [place] [address]- 5673 Feb, [facility] [address] [id number] [place] [address]- 0623 Jan, [facility] [address] [id number] [place] [address]- 4757 Jan, [facility] [address] [id number] [place] [address]- 9301 Dec, [facility] [place] [facility] [address] [id number] [place] [address]- 2548 Nov, [facility] [place] [facility] [address] [id number] [place] [address]- 2546 Sep, [facility] [place] [facility] [address] [id number] [place] [address]- 8490 Aug, [facility] [place] [facility] [address] [id number] [place] [address]- 0958 Aug, [facility] [place] [facility] [address] [id number] [place] [address]- 5896 Aug, [facility] [place] [facility] [address] [id number] [place] [address]- 2221 Jul, [facility] [place] [facility] [address] [id number] [place] [address]- 6562 Jul, [facility] [place] [facility] [address] [id number] [place] [address]- 5597 Jul, [facility] [place] [facility] [address] [id number] [place] [address]- 3099 Jul, [facility] [place] [facility] [address] [id number] [place] [address]- 8384 Jul, [facility] [place] [facility] [address] [id number] [place] [address]- 4192 Apr, [facility] [place] [facility] [address] [id number] [place] [address] Apr, [facility] [place] [facility] [address] [id number] [place] [address] Jan, [facility] [place] [facility] [address] [id number] [place] [address] Jan, [facility] [place] [facility] [address] [id number] [place] [address] Dec, [facility] [place] [facility] [address] [id number] [place] [address] Dec, [facility] [place] [facility] [address] [id number] [place] [address] Dec, [facility] [place] [facility] [address] [id number] [place] [address] Dec, [facility] [place] [facility] [id number] [address] Dec, [facility] [id number] [place] [address] October, [facility] [id number] [place] [address] Aug, [facility] [id number] [place] [address] Aug, [facility] [id number] [place] [address] Aug, [facility] [id number] [place] [address] Jul, [facility] [id number] [place] [address] May, [facility] [id number] [place] [address] Apr, [facility] [id number] [place] [address] May, [facility] [id number] [place] [address] May, [facility] [id number] [place] [address] May, [facility] [id number] [place] [address] Mar, [facility] [id number] [address] Mar, [facility] [id number] [address] Aug, IMMUNIZATIONS No Known Immunizations SOCIAL HISTORY Never Assessed REASON FOR VISIT Pain management (chronic)- Steve Thompson RN PLAN OF CARE Activity Details Follow Up 3 Months Reason:pain mgmt VITAL SIGNS Height 66.5 in 2017-01-11 Weight 165 lbs 2017-01-11 Temperature 97.2 degrees Fahrenheit 2017-01-11 Heart Rate 62 bpm 2017-01-11 Respiratory Rate 18 2017-01-11 BMI 26.23 kg/m2 2017-01-11 Blood pressure systolic 102 mmHg 2017-01-11 Blood pressure diastolic 62 mmHg 2017-01-11 MEDICATIONS Medication Instructions Dosage Frequency Start Date End Date Duration Status Hydrocodone-Acetaminophen 10-325 MG Orally 5 times a day 1 tablet as needed Nov, 28 days Active Lyrica 150 MG Orally 3 times a day 1 capsule 8h Apr, 28 days Active Vitamin D-3 61565 Orally once weekly 1 capsule Apr, Active Fluoxetine 40 mg 1 tablet 24h Aug, Active RESULTS Name Result Date Reference Range UA LONG DIP (IN HOUSE) Lot # [id number] Exp date 10/23 Clarity cloudy Color yellow Odor none GLU Negative MAIKEL Negative KET Negative SG 1.030 BLO trace pH 6.0 Protein negative URO 0.2 NIT negative SLIM 1+ Lot # Exp date PROCEDURES Procedure Date Ordered Result Body Site URINALYSIS, AUTO, W/O SCOPE January 11, 2017 URINE CULTURE/COLONY COUNT January 11, 2017 INSTRUCTIONS MEDICATIONS ADMINISTERED No Known Medications MEDICAL (GENERAL) HISTORY Type Description Date Medical History chronic pain Medical History arthritis Surgical History Nephrectomy - age 3 Surgical History Appendectomy Hospitalization History surgery Hospitalization History childbirth x 3
--- OUTSIDE RECORDS SUMMARY | 2018-06-07 13:29 | XMS REPORT ---
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 Name Role Phone CHUY NGUYEN Unavailable PROBLEMS Type Condition ICD9-CM Code XOV65-KL Code Onset Dates Condition Status SNOMED Code Problem Scoliosis (and kyphoscoliosis), idiopathic M41.20 Active 33462713 Problem Myalgia M79.1 Active 48273999 Problem Other chronic pain G89.29 Active 83796969 Problem Urinary urgency R39.15 Active 13307461 Problem Dysthymia F34.1 Active 74749159 Problem Varicose veins I86.8 Active 228441544 Problem Need for prophylaxis against urinary tract infection Z29.8 Active 745903661 Problem Abnormal mammogram of left breast R92.8 Active 373413241 Problem Scoliosis, unspecified scoliosis type, unspecified spinal region M41.9 Active 629151714 Problem Arthralgia M25.50 Active 04963734 Problem Calculus of gallbladder without cholecystitis without obstruction K80.20 Active 619849761 Problem Major depressive disorder, single episode, unspecified F32.9 Active 52751239 ALLERGIES No Information ENCOUNTERS Encounter Location Date Diagnosis [place] [id number] [place] [address] 80884- 1413 Jan, [place] [address] [place] [id number] [place] [address] 94288- 5917 Nov, Myalgia M79.1 and Other chronic pain G89.29 [place] [address] [place] [id number] [place] [address] 11049- 3238 October, Other chronic pain G89.29 and Myalgia M79.1 [place] [id number] [place] [address] 62345- 0678 Sep, Other chronic pain G89.29 [facility] [address] [place] [id number] [place] [address] 09708- 5776 Aug, Other chronic pain G89.29 [facility] [address] [address] [id number] [place] [address] 69876- 2362 Aug, Scoliosis (and kyphoscoliosis), idiopathic M41.20 [facility] [address] [place] [id number] [place] [address] 90691- 7468 Aug, [facility] [address] [place] [address] [id number] [place] [address] 07593- 1790 12 Aug, 2017 Dysuria R30.0 ; Scoliosis, unspecified scoliosis type, unspecified spinal region M41.9 ; Encounter for therapeutic drug level monitoring Z51.81 and Alcohol use Z78.9 [place] [address] [place] [id number] [place] [address] 35186- 8916 Aug, Other chronic pain G89.29 [facility] [address] [place] [address] [id number] [place] [address] 41776- 7011 Jul, Chronic urinary tract infection N39.0 [facility] [address] [place] [id number] [place] [address] 04711- 2669 07 Jul, 2017 Other chronic pain G89.29 [facility] [address] [address] [id number] [place] [address] 07268- 7053 Jun, [facility] [address] [place] [address] [id number] [place] [address] 91722- 0135 Jun, [facility] [address] [place] [id number] [place] [address] 89491- 1016 Jun, Acute left-sided thoracic back pain M54.6 [facility] [address] [address] [id number] [place] [address] 31665 -6576 Jun, Cough R05 and Acute bilateral thoracic back pain M54.6 [facility] [address] [place] [id number] [place] [address] 38005 -4931 Jun, Back pain, unspecified back location, unspecified back pain laterality, unspecified chronicity M54.9 and Left flank pain R10.9 [place] [address] [place] [id number] [place] [address] 52931- 2447 Jun, Other chronic pain G89.29 [place] [address] [place] [id number] [place] [address] 46233- 7082 03 Jun, 2017 Myalgia M79.1 [place] [address] [place] [id number] [place] [address] 13245- 4085 May, Other chronic pain G89.29 [place] [address] [place] [id number] [place] [address] 14256- 0075 07 May, 2017 Myalgia M79.1 and Fatigue due to exposure, subsequent encounter T73.2XXD [place] [address] [place] [id number] [place] [address] 40206- 6401 05 May, 2017 Fatigue due to exposure, subsequent encounter T73.2XXD [place] [address] [place] [id number] [place] [address] 02903- 2038 15 Apr, 2017 Other chronic pain G89.29 and Myalgia M79.1 [place] [address] [place] [id number] [place] [address] 95090- 9419 08 Apr, 2017 Closed nondisplaced fracture of phalanx of left great toe with routine healing, unspecified phalanx, subsequent encounter S92.405D ; Dysuria R30.0 ; Localized edema R60.0 and Arthralgia M25.50 [place] [address] [place] [address] 39395- 3586 Mar, Other chronic pain G89.29 and Myalgia M79.1 [place] [address] [place] [id number] [place] [address] 08190- 4429 Mar, [place] [address] [place] [id number] [place] [address] 38796- 7530 05 Mar, 2017 Dysuria R30.0 ; Other chronic pain G89.29 ; Scoliosis, unspecified scoliosis type, unspecified spinal region M41.9 and Chronic urinary tract infection N39.0 [facility] [id number] [place] [address] 19511- 8436 Feb, Arthralgia M25.50 and Myalgia M79.1 [facility] [id number] [place] [address] 70285- 6016 Feb, [facility] [address] [place] [id number] [place] [address] 70201- 3898 Feb, [facility] [address] [place] [id number] [place] [address] 35039- 3439 Feb, Closed compression fracture of L4 lumbar vertebra with routine healing, subsequent encounter S32.040D ; Closed nondisplaced fracture of phalanx of left great toe with routine healing, unspecified phalanx, subsequent encounter S92.405D and Chronic urinary tract infection N39.0 [facility] [address] [place] [id number] [place] [address] 29895- 6024 Jan, Closed compression fracture of fourth lumbar vertebra, initial encounter S32.040A [place] [address] [place] [id number] [place] [address] 08022- 8437 Jan, Urinary tract infection, site not specified N39.0 [facility] [id number] [place] [address] 21158- 8155 Jan, [facility] [id number] [place] [address] 23395- 2597 Jan, [facility] [address] [place] [address] 62230- 4443 Jan, Arthralgia M25.50 and Myalgia M79.1 [facility] [id number] [place] [address] 41804- 4501 Jan, Need for prophylaxis against urinary tract infection Z29.8 and Urinary tract infection, site not specified N39.0 [facility] [address] [place] [id number] [place] [address] 04939- 3309 Dec, Urinary tract infection, site not specified N39.0 and Need for prophylaxis against urinary tract infection Z29.8 [facility] [address] [place] [id number] [place] [address] 95356- 4975 Dec, Major depressive disorder, single episode, unspecified F32.9 ; Myalgia M79.1 ; Arthralgia M25.50 and 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 Z79.891 [place] [address] [place] [id number] [place] [address] 41573- 5211 Dec, Other chronic pain G89.29 and Dysuria R30.0 [place] [address] [place] [id number] [place] [address] 26120- 3050 Nov, 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 Z79.891 [place] [address] [place] [id number] [place] [address] 29985- 2103 Nov, Acute midline low back pain without sciatica M54.5 and nursing home 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 Z79.891 [place] [address] [place] [id number] [place] [address] 79745- 9962 Nov, [place] [address] [place] [id number] [place] [address] 62700- 8142 October, [place] [address] [place] [id number] [place] [address] 98932- 4477 October, [place] [address] [place] [id number] [place] [address] 96948- 9583 Sep, Right leg pain M79.604 [facility] [address] [place] [id number] [place] [address] 57830- 8358 Sep, [place] [address] [place] [id number] [place] [address] 05438- 2231 Aug, Right leg pain M79.604 [place] [address] [place] [id number] [place] [address] 00547- 8837 Jul, [place] [address] [place] [address] 12948- 5335 Jul, Arthralgia M25.50 and Right leg pain M79.604 [place] [address] [place] [id number] [place] [address] 02763- 6594 Jun, Arthralgia M25.50 [place] [address] [place] [id number] [place] [address] 59201- 1673 Jun, [place] [address] [place] [id number] [place] [address] 79061- 8593 Jun, Right leg pain M79.604 [place] [address] [place] [id number] [place] [address] 12855- 4613 Jun, Right leg pain M79.604 [place] [address] [place] [id number] [place] [address] 54654- 3105 Jun, Abnormal mammogram of left breast R92.8 [place] [address] [place] [id number] [place] [address] 67295- 4221 May, Routine gynecological examination V72.31 ; Breast cancer screening Z12.39 ; Cervical cancer screening Z12.4 ; Colon cancer screening Z12.11 and Calculus of gallbladder without cholecystitis without obstruction K80.20 [place] [address] [place] [id number] [place] [address] 63166- 6764 26 May, 2016 Arthralgia M25.50 [place] [address] [place] [id number] [place] [address] 01039- 5990 29 Apr, 2016 Arthralgia M25.50 [place] [address] [place] [id number] [place] [address] 86394- 4815 17 Apr, 2016 Screening, lipid Z13.220 [place] [address] [place] [id number] [place] [address] 43598- 2549 14 Apr, 2016 Other chronic pain G89.29 ; Scoliosis, unspecified scoliosis type, unspecified spinal region M41.9 ; Right leg pain M79.604 ; Major depressive disorder, single episode, unspecified F32.9 ; Fatigue due to exposure, subsequent encounter T73.2XXD ; Dysthymia F34.1 and Screening, lipid Z13.220 [place] [address] [place] [id number] [place] [address] 78262- 4051 Apr, Arthralgia M25.50 [place] [address] [place] [id number] [place] [address] 36879- 3279 Mar, Dysthymia 300.4 [place] [address] 51893- 0432 Mar, Arthralgia M25.50 [place] [address] 16347- 4778 Feb, Arthralgia M25.50 [place] [address] [place] [id number] [place] [address] 58259- 5227 Jan, Arthralgia M25.50 [place] [address] [place] [id number] [place] [address] 94028- 5975 Dec, 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 [place] [address] [place] [id number] [place] [address] 50482- 4433 Dec, [place] [address] [place] [id number] [place] [address] 88280- 1669 Dec, Right leg pain M79.604 and Scoliosis, unspecified scoliosis type, unspecified spinal region M41.9 [place] [address] [place] [id number] [place] [address] 26235- 3835 Dec, Right leg pain M79.604 and Scoliosis, unspecified scoliosis type, unspecified spinal region M41.9 [place] [address] [place] [id number] [place] [address] 54979- 8385 Dec, Arthralgia M25.50 [place] [address] [place] [id number] [place] [address] 22584- 6988 Nov, Arthralgia M25.50 [place] [address] [place] [id number] [place] [address] 80024- 1943 October, Arthralgia M25.50 and Scoliosis, unspecified scoliosis type , unspecified spinal region M41.9 [place] [address] [place] [id number] [place] [address] 69460- 5460 Sep, [place] [address] 67481- 0754 Aug, [place] [address] [place] [id number] [place] [address] 20204- 1347 Aug, Arthralgia M25.50 ; Myalgia M79.1 and Scoliosis M41.9 [place] [address] [place] [id number] [place] [address] 69212- 4727 Jul, Other chronic pain G89.29 [place] [address] 84396- 9264 Jul, Other chronic pain G89.29 [place] [address] 33217- 0217 Jul, Impingement syndrome of both shoulders M75.41 [place] [address] [place] [id number] [place] [address] 22940- 4713 Jun, [place] [address] [place] [id number] [place] [address] 80020- 7887 Jun, [place] [address] [place] [id number] [place] [address] 48444- 4111 Jun, Scoliosis (and kyphoscoliosis), idiopathic M41.20 and Other chronic pain G89.29 [facility] [address] [place] [id number] [place] [address] 82098 -6575 Jun, Upper respiratory tract infection, unspecified type 465.9 and Rhinorrhea J34.89 [place] [address] [place] [id number] [place] [address] 12015- 6316 May, [place] [address] [place] [id number] [place] [address] 09399- 7335 May, [facility] [address] [place] [id number] [place] [address] 200889- 0431 Apr, Dysuria R30.0 ; Urinary tract infection, site not specified N39.0 and Hematuria, unspecified R31.9 [place] [address] [place] [id number] [place] [address] 92614- 0376 Apr, [place] [address] [place] [id number] [place] [address] 308294- 2501 Mar, Family history of early CAD Z82.[address] 720278- 0408 Mar, Other chronic pain G89.29 [place] [address] [place] [id number] [place] [address] 50752- 5027 Mar, Impingement syndrome of both shoulders M75.41 [place] [address] [place] [id number] [place] [address] 50777- 5582 Mar, Other chronic pain G89.29 ; Dysthymia F34.1 ; Family history of early CAD Z82.49 ; Dysuria R30.0 and Other specified disorders of Eustachian tube, right ear H69.81 [place] [address] [place] [id number] [place] [address] 06241- 6356 Mar, [place] [address] [place] [id number] [place] [address] 17244- 4602 Feb, [facility] [address] [place] [id number] [place] [address] 75322- 3600 Jan, [place] [address] [place] [id number] [place] [address] 04264- 0746 Jan, Eustachian tube dysfunction 381.81 and Dysthymia 300.4 [place] [address] [place] [id number] [place] [address] 17318- 4989 Dec, [facility] [address]- 8485 Nov, Impingement syndrome of both shoulders 726.2 [facility] [address] [address]- 6584 Nov, [facility] [address] [place] [id number] [address]- 1257 Nov, [facility] [address] [place] [id number] [place] [address] 07920- 1988 Nov, Urgency of urination 788.63 [facility] [address] [place] [id number] [place] [address], [place]186- 9079 October, [facility] [address] [place] [id number] [place] [address] 38858- 9215 October, [facility] [address] [place] [id number] [place] [address] 26710- 6545 Sep, [facility] [address] [address]- 5278 Sep, [facility] [address] [place] [id number] [place] [address] 08775- 0850 Aug, [facility] [address] [address]- 6005 Aug, [facility] [address], [place] [address]- 4981 Aug, [facility] [address] [place] [address]- 7189 Aug, [facility] [address] [place] [id number] [place] [address] 99867- 1635 Aug, [facility] [address] [address]- 6986 Aug, [facility] [address] [address]- 7457 Aug, [facility] [place] [facility] [address] [id number] [place] [address]- 3267 Jul, [facility] [place] [facility] [address] [id number] [place] [address]- 6109 Jul, [facility] [place] [facility] [address] [facility] [id number] [place] [address]- 4398 Jul, [facility] [place] [facility] [address] [id number] [place] [address]- 7948 Jul, [facility] [place] [facility] [address] [id number] [place] [address]- 0317 Jul, [facility] [place] [facility] [address] [facility] [id number] [place] [address]- 4254 Jul, [facility] [place] [facility] [address] [facility] [id number] [place] [address]- 8003 Jun, [facility] [place] [facility] [address] [facility] [id number] [place] [address]- 5824 Jun, [facility] [place] [facility] [address] [facility] [id number] [place] [address]- 5875 May, [facility] [place] [facility] [address] [facility] [id number] [place] [address]- 5072 May, [facility] [place] [facility] [address] [facility] [id number], [place] [address]- 5247 May, [facility] [place] [facility] [address] [id number], [place] [address]- 7335 May, [facility] [place] [facility] [address] [facility] [id number] [place] [address]- 1324 Mar, [facility] [place] [facility] [address] [facility] [id number] [place] [address]- 0953 Mar, [facility] [place] [facility] [address] [facility] [id number] [place] [address]- 1436 Feb, [facility] [place] [facility] [address] [facility] [id number] [place] [address]- 4147 Feb, [facility] [address] [id number] [place] [address]- 7311 Jan, [facility] [place] [facility] [address] [id number] [place] [address]- 7238 Jan, [facility] [place] [facility] [address] [id number] [place] [address]- 5417 Jan, [facility] [place] [facility] [address] [id number] [place] [address]- 7896 Jan, [facility] [place] [facility] [address] [id number] [place] [address]- 4950 Jan, [facility] [place] [facility] [address] [id number] [place] [address]- 0152 Nov, [facility] [place] [facility] [address] [id number] [place] [address]- 4541 Nov, [facility] [place] [facility] [address] [id number] [place] [address]- 8636 October, [facility] [place] [facility] [address] [id number] [place] [address]- 0753 October, [facility] [place] [facility] [address] [id number] [place] [address]- 7644 October, [facility] [place] [facility] [address] [id number] [place] [address]- 3140 October, [facility] [place] [facility] [address] [id number] [place] [address]- 6192 Sep, [facility] [place] [facility] [address] [id number] [place] [address]- 5739 Aug, [facility] [place] [facility] [address] [id number] [place] [address]- 6693 Aug, [facility] [place] [facility] [address] [id number] [place] [address]- 5222 Aug, [facility] [place] [facility] [address] [id number] [place] [address]- 9019 Aug, [facility] [place] [facility] [address] [id number] [place] [address]- 3745 Jul, [facility] [place] [facility] [address] [id number] [place] [address]- 2214 Jul, [facility] [place] [facility] [address] [id number] [place] [address]- 7721 Jun, [facility] [place] [facility] [address] [id number] [place] [address]- 6283 Jun, [facility] [place] [facility] [address] [id number] [place] [address]- 4178 Jun, [facility] [place] [facility] [address] [id number] [place] [address]- 1392 Jun, [facility] [place] [facility] [address] [id number] [place] [address]- 9925 Jun, [facility] [place] [facility] [address] [id number] [place] [address]- 9969 Jun, [facility] [place] [facility] [address] [id number], [place] [address]- 1691 Mar, [facility] [place] [facility] [address] [id number], [place] [address]- 3044 Mar, [facility] [place] [facility] [address] [id number], [place] [address]- 8320 Feb, [facility] [place] [facility] [address] [id number] [place] [address]- 4250 Feb, [facility] [place] [facility] [address] [id number], [place] [address]- 9394 09 Feb, 2013 [facility] [place] [facility] [address] [id number], [place] [address] Jan, [facility] [place] [facility] [address] [id number], [place] [address] Jan, [facility] [address] [id number] [place] [address] Dec, [facility] [place] [facility] [address] [id number] [place] [address] Nov, [facility] [place] [facility] [address] [id number] [place] [address] Sep, [facility] [place] [facility] [address] [id number] [place] [address] Aug, [facility] [place] [facility] [address] [id number] [place] [address] Aug, [facility] [place] [facility] [address] [id number] [place] [address] Aug, [facility] [address] [id number] [place] [address] Jul, [facility] [place] [facility] [address] [id number] [place] [address] Jul, [facility] [place] [facility] [address] [id number] [place] [address] Jul, [facility] [address] [id number] [place] [address] Jul, [facility] [address] [id number] [place] [address] Jul, [facility] [place] [facility] [address] [id number] [place] [address] Apr, [facility] [place] [facility] [address] [id number] [place] [address] Apr, [facility] [place] [facility] [address] [facility] [id number] [place] [address] Jan, [facility] [place] [facility] [address] [id number] [place] [address] Jan, [facility] [place] [facility] [address] [id number] [place] [address] Dec, [facility] [address] [id number] [place] [address] Dec, [facility] [address] [id number] [place] [address] Dec, [facility] [address] [id number] [place] [address] Dec, [facility] [address] [id number] [place] [address] Dec, [facility] [address] [id number] [place] [address] October, [facility] [address] [id number] [place] [address] Aug, [facility] [address] [id number] [place] [address] Aug, [facility] [address] [id number] [place] [address] Aug, [facility] [address] [id number] [place] [address] Jul, [facility] [address] [id number] [place] [address] May, [facility] [address] [id number] [place] [address] Apr, [facility] [place] [facility] [address] [id number] [place] [address] May, [facility] [place] [facility] [address] [id number] [place] [address] May, [facility] [place] [facility] [address] [id number] [place] [address] May, [facility] [place] [facility] [address] [id number] [place] [address] Mar, [facility] [address] [facility] [id number] [place] [address] Mar, [facility] [address] [facility] [id number], [place] [address] Aug, IMMUNIZATIONS No Known Immunizations SOCIAL HISTORY Never Assessed REASON FOR VISIT Refill request PLAN OF CARE VITAL SIGNS MEDICATIONS Medication Instructions Dosage Frequency Start Date End Date Duration Status Macrobid 100 MG Orally Once a day 1 capsule with food 24h Dec, 30 days Active RESULTS No Results PROCEDURES No Known procedures INSTRUCTIONS MEDICATIONS ADMINISTERED No Known Medications MEDICAL (GENERAL) HISTORY Type Description Date Medical History chronic pain Medical History arthritis Surgical History Nephrectomy - age 3 Surgical History Appendectomy Hospitalization History surgery Hospitalization History childbirth x 3
--- OUTSIDE RECORDS SUMMARY | 2018-06-07 13:29 | XMS REPORT ---
Author Author CHUY NGUYEN [facility] Address [address] [place] [address] Care Team Providers Care Malter Operator Name Role Phone CHUY NGUYEN Unavailable PROBLEMS Type Condition ICD9-CM Code EWR78-VA Code Onset Dates Condition Status SNOMED Code Problem Scoliosis (and kyphoscoliosis), idiopathic M41.20 Active 23161925 Problem Myalgia M79.1 Active 45895752 Problem Other chronic pain G89.29 Active 98642349 Problem Urinary urgency R39.15 Active 65259551 Problem Dysthymia F34.1 Active 29851683 Problem Varicose veins I86.8 Active 907535914 Problem Need for prophylaxis against urinary tract infection Z29.8 Active 774678984 Problem Abnormal mammogram of left breast R92.8 Active 622403333 Problem Scoliosis, unspecified scoliosis type, unspecified spinal region M41.9 Active 067748816 Problem Arthralgia M25.50 Active 96466361 Problem Calculus of gallbladder without cholecystitis without obstruction K80.20 Active 492299494 Problem Major depressive disorder, single episode, unspecified F32.9 Active 71923398 ALLERGIES Substance Reaction Event Type Date Status Sulfamethoxazole-Trimethoprim Unknown Drug Allergy Mar, Active Aspirin Unknown Drug Allergy Mar, Active ENCOUNTERS Encounter Location Date Diagnosis [facility] [id number], [place] [address] Sep, Other chronic pain G89.29 [facility] [address], [place] [address] Aug, Other chronic pain G89.29 [facility] [id number] [address] Aug, Scoliosis (and kyphoscoliosis), idiopathic M41.20 [facility] [id number] [place] [address] 76949- 0662 Aug, [facility] [id number] [place] [address] 99084- 8521 Aug, Dysuria R30.0 ; Scoliosis, unspecified scoliosis type, unspecified spinal region M41.9 ; Encounter for therapeutic drug level monitoring Z51.81 and Alcohol use Z78.9 [facility] [address] [address]- [address] 07 Aug, 2017 Other chronic pain G89.29 [facility] [id number] [place] [address] 95068- 9723 Jul, Chronic urinary tract infection N39.0 [facility] [id number] [place] [address] 46746- 6237 07 Jul, 2017 Other chronic pain G89.29 [facility] [id number] [place] [address] 51118- 7211 Jun, [facility] [id number] [place] [address] 48274- 2776 Jun, [facility] [id number] [place] [address] 46598- 2263 Jun, Acute left-sided thoracic back pain M54.6 [facility] [id number] [place] [address] 69293 -0469 18 Jun, 2017 Cough R05 and Acute bilateral thoracic back pain M54.6 [facility] [id number] [place] [address] 21814 -1196 15 Jun, 2017 Back pain, unspecified back location, unspecified back pain laterality, unspecified chronicity M54.9 and Left flank pain R10.9 [facility] [id number] [place] [address] 92828- 8403 Jun, Other chronic pain G89.29 [facility] [id number] [place] [address] 96265- 0289 Jun, Myalgia M79.1 [facility] [id number] [place] [address] 40718- 7085 May, Other chronic pain G89.29 [facility] [id number] [place] [address] 39648- 9556 May, Myalgia M79.1 and Fatigue due to exposure, subsequent encounter T73.2XXD [facility] [id number] [place] [address] 53900- 1885 May, Fatigue due to exposure, subsequent encounter T73.2XXD [facility] [id number] [place] [address] 97922- 4879 Apr, Other chronic pain G89.29 and Myalgia M79.1 [facility] [id number] [place] [address] 82887- 4902 Apr, Closed nondisplaced fracture of phalanx of left great toe with routine healing, unspecified phalanx, subsequent encounter S92.405D ; Dysuria R30.0 ; Localized edema R60.0 and Arthralgia M25.50 [facility] [id number] [place] [address] 40010- 0973 Mar, Other chronic pain G89.29 and Myalgia M79.1 [facility] [id number] [place] [address] 19329- 5281 Mar, [facility] [id number] [place] [address] 52940- 7912 Mar, Dysuria R30.0 ; Other chronic pain G89.29 ; Scoliosis, unspecified scoliosis type, unspecified spinal region M41.9 and Chronic urinary tract infection N39.0 [facility] [id number] [place] [address] 10587- 5329 Feb, Arthralgia M25.50 and Myalgia M79.1 [facility] [id number] [place] [address] 83817- 1376 Feb, [facility] [id number] [address] 3607 Feb, [facility] [address], [place] [address] 5965 Feb, Closed compression fracture of L4 lumbar vertebra with routine healing, subsequent encounter S32.040D ; Closed nondisplaced fracture of phalanx of left great toe with routine healing, unspecified phalanx, subsequent encounter S92.405D and Chronic urinary tract infection N39.0 [facility] [id number] [address] 8135 Jan, Closed compression fracture of fourth lumbar vertebra, initial encounter S32.040A [facility] [address], [place] [address] 5543 Jan, Urinary tract infection, site not specified N39.0 [facility] [address], [place] [address]- 9410 Jan, [facility] [address], [place] [address]- 8995 Jan, [facility] [address], [place] [address]- 5900 Jan, Arthralgia M25.50 and Myalgia M79.1 [facility] [id number], [place] [address] 4152 Jan, Need for prophylaxis against urinary tract infection Z29.8 and Urinary tract infection, site not specified N39.0 [facility] [id number] [address] 4426 Dec, Urinary tract infection, site not specified N39.0 and Need for prophylaxis against urinary tract infection Z29.8 [facility] [id number] [address] 0[address] Dec, Major depressive disorder, single episode, unspecified F32.9 ; Myalgia M79.1 ; Arthralgia M25.50 and snf 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 Z79.891 [facility] [id number] [place] [address] 10943- 3660 Dec, Other chronic pain G89.29 and Dysuria R30.0 [facility] [id number] [place] [address] 34100- 5176 Nov, 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 [facility] [id number] [place] [address] 91334- 1659 Nov, Acute midline low back pain without sciatica M54.5 and snf 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 Z79.891 [facility] [id number] [place] [address] 00372- 2172 Nov, [facility] [id number] [place] [address] 49692- 9123 October, [facility] [id number] [place] [address] 42032- 3762 October, [facility] [id number] [place] [address] 66096- 5189 Sep, Right leg pain M79.604 [facility] [id number] [place] [address] 04165- 6196 Sep, [facility] [id number] [place] [address] 27240- 4930 Aug, Right leg pain M79.604 [facility] [id number] [place] [address] 21327- 5066 Jul, [facility] [id number] [place] [address] 02026- 0095 Jul, Arthralgia M25.50 and Right leg pain M79.604 [facility] [id number] [place] [address] 73933- 7786 Jun, Arthralgia M25.50 [facility] [id number] [place] [address]- 5284 Jun, [facility] [id number] [place] [address] 28028- 0673 Jun, Right leg pain M79.604 [facility] [id number] [place] [address] 72041- 2179 Jun, Right leg pain M79.604 [facility] [address] 70780- 2189 Jun, Abnormal mammogram of left breast R92.[address] 77335- 7573 May, Routine gynecological examination V72.31 ; Breast cancer screening Z12.39 ; Cervical cancer screening Z12.4 ; Colon cancer screening Z12.11 and Calculus of gallbladder without cholecystitis without obstruction K80.20 [facility] [facility] [address] 20533- 3026 May, Arthralgia M25.50 [facility] [id number] [place] [address] 97966- 0190 Apr, Arthralgia M25.50 [facility] [id number] [place] [address] 47391- 2391 Apr, Screening, lipid Z13.220 [facility] [id number] [place] [address] 28442- 2160 14 Apr, 2016 Other chronic pain G89.29 ; Scoliosis, unspecified scoliosis type, unspecified spinal region M41.9 ; Right leg pain M79.604 ; Major depressive disorder, single episode, unspecified F32.9 ; Fatigue due to exposure, subsequent encounter T73.2XXD ; Dysthymia F34.1 and Screening, lipid Z13.220 [facility] [id number] [place] [address] 25802- 1446 Apr, Arthralgia M25.50 [facility] [id number] [place] [address] 86841- 0810 Mar, Dysthymia 300.4 [facility] [id number] [place] [address] 17539- 3054 Mar, Arthralgia M25.50 [facility] [address], [place] [address]- 5481 Feb, Arthralgia M25.50 [facility] [id number] [place] [address] 02903- 3792 Jan, Arthralgia M25.50 [facility] [id number] [place] [address] 75848- 0986 Dec, 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 [facility] [id number] [place] [address] 12475- 1833 Dec, [facility] [id number] [place] [address] 94867- 3951 Dec, Right leg pain M79.604 and Scoliosis, unspecified scoliosis type, unspecified spinal region M41.9 [facility] [id number] [place] [address] 01174- 5513 Dec, Right leg pain M79.604 and Scoliosis, unspecified scoliosis type, unspecified spinal region M41.9 [facility] [address] [place] [address] 53464- 6800 Dec, Arthralgia M25.50 [facility] [id number] [place] [address] 77146- 7636 Nov, Arthralgia M25.50 [facility] [id number] [place] [address] 32930- 7302 October, Arthralgia M25.50 and Scoliosis, unspecified scoliosis type , unspecified spinal region M41.9 [facility] [address], [place] [address]- 6796 Sep, [facility] [id number] [place] [address] 01399- 0510 Aug, [facility] [address] 20138- 4786 Aug, Arthralgia M25.50 ; Myalgia M79.1 and Scoliosis M41.9 [facility] [id number] [place] [address] 02859- 8626 Jul, Other chronic pain G89.29 [facility] [id number] [place] [address] 82144- 4768 Jul, Other chronic pain G89.29 [facility] [facility] [address] 16218- 8221 Jul, Impingement syndrome of both shoulders M75.41 [facility] [id number] [place] [address] 30601- 5195 Jun, [facility] [id number] [place] [address] 38731- 7811 Jun, [facility] [id number] [place] [address] 77149- 8503 Jun, Scoliosis (and kyphoscoliosis), idiopathic M41.20 and Other chronic pain G89.29 [facility] [id number] [place] [address] 11395 -8327 Jun, Upper respiratory tract infection, unspecified type 465.9 and Rhinorrhea J34.89 [facility] [id number] [place] [address] 49323- 9063 May, [facility] [address] 71540- 8527 May, [facility] [id number] [place] [address] 70052- 6939 Apr, Dysuria R30.0 ; Urinary tract infection, site not specified N39.0 and Hematuria, unspecified R31.9 [facility] [id number] [place] [address] 52883- 1055 Apr, [facility] [address] 00163- 3166 Mar, Family history of early CAD Z82.49 [facility] [id number] [place] [address] 59599- 2646 Mar, Other chronic pain G89.29 [facility] [address] 07121- 0530 Mar, Impingement syndrome of both shoulders M75.41 [facility] [address] 18901- 3647 Mar, Other chronic pain G89.29 ; Dysthymia F34.1 ; Family history of early CAD Z82.49 ; Dysuria R30.0 and Other specified disorders of Eustachian tube, right ear H69.81 [facility] [address] 24653- 9611 Mar, [facility] [address] 48720- 6092 Feb, [facility] [id number] [place] [address] 52418- 9272 Jan, [facility] [id number] [place] [address] 68471- 0170 Jan, Eustachian tube dysfunction 381.81 and Dysthymia 300.4 [facility] [id number] [place] [address] 99979- 2238 Dec, [facility] [address] 35751- 6641 Nov, Impingement syndrome of both shoulders 726.2 [facility] [id number] [place] [address] 65212- 4231 Nov, [facility] [address] 24247- 2546 Nov, [facility] [address] [facility] [id number] [place] [address]87 Nov, Urgency of urination 788.63 [facility] [address] [id number] [place] [address]- 6916 October, [facility] [address] [facility] [id number] [place] [address]- 5576 October, [facility] [address] [id number] [place] [address]- 2524 Sep, [facility] [address] [facility] [id number] [place] [address]- 7465 Sep, [facility] [address] [facility] [id number] [place] [address]- 6002 Aug, [facility] [address] [facility] [id number] [place] [address]- 1671 Aug, [facility] [address] [facility] [id number] [place] [address]- 9119 Aug, [facility] [address] [facility] [id number] [place] [address]- 7568 Aug, [facility] [address] [facility] [id number] [place] [address]- 6952 Aug, [facility] [address] [facility] [id number] [place] [address]- 2166 Aug, [facility] [address] [facility] [id number] [place] [address]- 2607 Aug, [facility] [place] [facility] [address] [facility] [id number] [place] [address]- 8687 Jul, [facility] [place] [facility] [address] [facility] [id number] [place] [address]- 0536 Jul, [facility] [address] [facility] [id number] [place] [address]- 0233 Jul, [facility] [place] [facility] [address] [id number] [place] [address]- 8169 Jul, 2014 [facility] [place] [facility] [address] [id number] [place] [address]- 1254 Jul, [facility] [place] [facility] [address] [id number] [place] [address]- 9008 Jul, [facility] [place] [facility] [address] [id number] [place] [address]- 9621 Jun, [facility] [place] [facility] [address] [id number] [place] [address]- 5471 Jun, [facility] [place] [facility] [address] [id number] [place] [address]- 1333 May, [facility] [place] [facility] [address] [id number] [place] [address]- 6143 May, [facility] [place] [facility] [address] [id number] [place] [address]- 4339 May, [facility] [place] [facility] [address] [id number] [place] [address]- 6991 May, [facility] [place] [facility] [address] [facility] [id number] [address]- 4837 Mar, [facility] [place] [facility] [address] [id number], [place] [address]- 6745 Mar, [facility] [place] [facility] [address] [id number], [place] [address]- 7123 Feb, [facility] [place] [facility] [address] [id number] [place] [address]- 6483 Feb, [facility] [place] [facility] [address] [id number], [place] [address]- 3896 Jan, [facility] [place] [facility] [address] [id number] [place] [address]- 2280 Jan, [facility] [place] [facility] [address] [id number] [place] [address]- 7942 Jan, [facility] [place] [facility] [address] [id number] [place] [address]- 9062 Jan, [facility] [place] [facility] [address] [id number] [place] [address]- 6165 Jan, [facility] [place] [facility] [address] [id number] [place] [address]- 3969 Nov, [facility] [place] [facility] [address] [id number] [place] [address]- 9563 Nov, [facility] [place] [facility] [address] [id number] [place]205 October, [facility] [place] [facility] [address] [id number] [place] [address]- 2994 October, [facility] [place] [facility] [address] [id number] [place] [address]- 6781 October, [facility] [place] [facility] [address] [id number] [place] [address]- 6091 October, [facility] [place] [facility] [address] [id number] [place] [address]- 6548 Sep, [facility] [place] [facility] [address] [id number] [place] [address]- 8394 Aug, [facility] [place] [facility] [address] [id number] [place] [address]- 2680 Aug, [facility] [place] [facility] [address] [id number] [place] [address]- 2615 Aug, [facility] [place] [facility] [address] [id number] [place] [address]- 0207 Aug, [facility] [place] [facility] [address] [id number] [place] 9603 Jul, [facility] [place] [facility] [address] [id number] [place] [address]- 9468 Jul, [facility] [place] [facility] [address] [id number] [place] [address]- 2167 Jun, [facility] [place] [facility] [address] [id number] [place] [address]- 4798 Jun, [facility] [place] [facility] [address] [id number] [place] [address]- 1846 Jun, [facility] [place] [facility] [address] [id number] [place] [address]- 7564 Jun, [facility] [place] [facility] [address] [id number] [place] [address]- 5345 Jun, [facility] [place] [facility] [address] [id number] [place] [address]- 3403 Jun, [facility] [place] [facility] [address] [id number] [place] [address]- 3343 Mar, [facility] [place] [facility] [address] [id number] [place] [address]- 2564 Mar, [facility] [place] [facility] [address] [id number] [place] [address]- 6359 Feb, [facility] [place] [facility] [address] [id number] [place] [address]- 5971 Feb, [facility] [place] [facility] [address] [id number] [place] [address]- 8085 Feb, [facility] [place] [facility] [address] [id number] [place] [address]- 4137 Jan, [facility] [place] [facility] [address] [id number] [place] [address]- 3924 Jan, [facility] [place] [facility] [address] [id number] [place] [address]- 0815 Dec, [facility] [place] [facility] [address] [id number] [place] [address]- 9125 Nov, [facility] [place] [facility] [address] [id number] [place] [address]- 0457 Sep, [facility] [address] [id number] [place] [address]- 0675 Aug, [facility] [place] [facility] [address] [id number] [place] [address] Aug, [facility] [place] [facility] [address] [id number] [place] [address] Aug, [facility] [place] [facility] [address] [id number] [place] [address] Jul, [facility] [place] [facility] [address] [id number] [place] [address] Jul, [facility] [address] [id number] [place] [address] Jul, [facility] [address] [id number] [place] [address] Jul, [facility] [address] [id number] [place] [address] Jul, [facility] [address] [id number] [place] [address] Apr, [facility] [address] [facility] [id number] [place] [address] Apr, [facility] [address] [id number] [place] [address] Jan, [facility] [place] [facility] [address] [id number] [place] [address] Jan, [facility] [place] [facility] [address] [id number] [place] [address] Dec, [facility] [place] [facility] [address] [id number] [place] [address] Dec, [facility] [place] [facility] [address] [facility] [id number] [place] [address] Dec, [facility] [place] [facility] [address] [id number] [place] [address] Dec, [facility] [address] [id number] [place] [address] Dec, [facility] [address] [facility] [id number] [place] [address] October, [facility] [address] [id number] [place] [address] Aug, [facility] [address] [id number] [place] [address] Aug, [facility] [address] [id number] [place] [address] Aug, [facility] [address] [facility] [id number] [place] [address] Jul, [facility] [address] [facility] [id number] [place] May, [facility] [address] [facility] [id number] [place] [address] [address] Apr, [facility] [address] [facility] [id number] [address] May, [facility] [address] [facility] [id number] [address] May, [facility] [address] [facility] [id number] [address] [address] May, [facility] [address] [facility] [id number] [address] Mar, [facility] [address] [facility] [id number], [place] [address] Mar, [facility] [address] [facility] [id number] [address] [address] Aug, IMMUNIZATIONS No Known Immunizations SOCIAL HISTORY Never Assessed REASON FOR VISIT Fracture f/u/UTI symptoms, Back pain increasing in severity since fall 1 month ago, Cassie PLAN OF CARE Activity Details Follow Up 4 Weeks Reason:pain mgmt VITAL SIGNS Height 66.5 in 2017-03-30 Weight 162.2 lbs 2017-03-30 Temperature 98.2 degrees Fahrenheit 2017-03-30 Heart Rate 60 bpm 2017-03-30 Respiratory Rate 18 2017-03-30 BMI 25.78 kg/m2 2017-03-30 Blood pressure systolic 112 mmHg 2017-03-30 Blood pressure diastolic 80 mmHg 2017-03-30 MEDICATIONS Medication Instructions Dosage Frequency Start Date End Date Duration Status Macrobid 100 MG Orally Once a day 1 capsule with food 24h Dec, May, 30 days Active Lyrica 150 MG Orally 3 times a day 1 capsule 8h Apr, 28 days Active Premarin 0.625 MG/GM Vaginal 3 times a week as directed Mar, Active Fluoxetine HCl 40 mg Orally Once a day 1 capsule 24h Dec, 30 days Active Vitamin D-3 20647 Orally once weekly 1 capsule Apr, Active Percocet 10-325 MG Orally 5 times per day 1 tablet as needed Mar, Mar, 14 days Active RESULTS Name Result Date Reference Range UA LONG DIP (IN HOUSE) 2017-03-30 Lot # [id number] Exp date 01/2018 Clarity clear Color yellow Odor none GLU negative MAIKEL negative KET negative SG 1.015 BLO trace pH 6.5 Protein negative URO 0.2 NIT negative SLIM negative Lot # Exp date PROCEDURES Procedure Date Ordered Result Body Site URINALYSIS, AUTO, W/O SCOPE Mar 30, 2017 INSTRUCTIONS MEDICATIONS ADMINISTERED No Known Medications MEDICAL (GENERAL) HISTORY Type Description Date Medical History chronic pain Medical History arthritis Surgical History Nephrectomy - age 3 Surgical History Appendectomy Hospitalization History surgery Hospitalization History childbirth x 3
--- OUTSIDE RECORDS SUMMARY | 2018-06-07 13:30 | XMS REPORT ---
Author Author CHUY NGUYEN Organization [facility] [place] [facility] Address [address] [place] [address] Care Team Providers [employer]ic Name Role Phone CHUY NGUYEN Unavailable PROBLEMS Type Condition ICD9-CM Code EGN91-YV Code Onset Dates Condition Status SNOMED Code Problem Scoliosis (and kyphoscoliosis), idiopathic M41.20 Active 56225571 Problem Myalgia M79.1 Active 85200637 Problem Other chronic pain G89.29 Active 45279416 Problem Urinary urgency R39.15 Active 83979424 Problem Dysthymia F34.1 Active 03891010 Problem Varicose veins I86.8 Active 891329052 Problem Need for prophylaxis against urinary tract infection Z29.8 Active 408801330 Problem Abnormal mammogram of left breast R92.8 Active 841323713 Problem Scoliosis, unspecified scoliosis type, unspecified spinal region M41.9 Active 870103148 Problem Arthralgia M25.50 Active 27448006 Problem Calculus of gallbladder without cholecystitis without obstruction K80.20 Active 256862092 Problem Major depressive disorder, single episode, unspecified F32.9 Active 06077250 ALLERGIES No Information ENCOUNTERS Encounter Location Date Diagnosis [facility] [place] [facility] [id number] [place] [address] 02664- 1181 October, Other chronic pain G89.29 and Myalgia M79.1 [facility] [place] [facility] [id number] [address] Sep, Other chronic pain G89.29 [facility] [place] [facility] [id number] [place] [address] 63893- 9551 Aug, Other chronic pain G89.29 [facility] [place] [facility] [id number] [place] [address] 31537- 7864 Aug, Scoliosis (and kyphoscoliosis), idiopathic M41.20 [facility] [place] [facility] [id number] [address] Aug, [place] [facility] [id number] [place] [address] 18246- 4797 12 Aug, 2017 Dysuria R30.0 ; Scoliosis, unspecified scoliosis type, unspecified spinal region M41.9 ; Encounter for therapeutic drug level monitoring Z51.81 and Alcohol use Z78.9 [facility] [facility] [id number] [place] [address] 57737- 9445 07 Aug, 2017 Other chronic pain G89.29 [facility] [id number] [place] [address] 86127- 0311 23 Jul, 2017 Chronic urinary tract infection N39.0 [facility] [id number] [place] [address] 40237- 8689 07 Jul, 2017 Other chronic pain G89.29 [facility] [id number] [place] [address] 01591- 9410 Jun, [facility] [id number] [place] [address] 20455- 4946 Jun, [facility] [facility] [id number] [place] [address] 20113- 9818 Jun, Acute left-sided thoracic back pain M54.6 [facility] [id number] [place] [address] 64268 -5090 18 Jun, 2017 Cough R05 and Acute bilateral thoracic back pain M54.6 [facility] [id number] [place] [address] 07655 -8427 15 Jun, 2017 Back pain, unspecified back location, unspecified back pain laterality, unspecified chronicity M54.9 and Left flank pain R10.9 [facility] [facility] [id number] [place] [address] 71317- 8272 Jun, Other chronic pain G89.29 [facility] [id number] [place] [address] 7500 Jun, Myalgia M79.1 [facility] [id number] [place] [address] 15532- 1290 May, Other chronic pain G89.29 [facility] [id number] [place] [address] 40149- 4662 May, Myalgia M79.1 and Fatigue due to exposure, subsequent encounter T73.2XXD [facility] [facility] [id number] [place] [address] 50112- 0398 05 May, 2017 Fatigue due to exposure, subsequent encounter T73.2XXD [place] [address] 33725- 4091 15 Apr, 2017 Other chronic pain G89.29 and Myalgia M79.1 [facility] [address] 11045- 8647 08 Apr, 2017 Closed nondisplaced fracture of phalanx of left great toe with routine healing, unspecified phalanx, subsequent encounter S92.405D ; Dysuria R30.0 ; Localized edema R60.0 and Arthralgia M25.50 [facility] [id number] [place] [address] 01794- 1037 Mar, Other chronic pain G89.29 and Myalgia M79.1 [facility] [facility] [id number] [place] [address] 22923- 9917 Mar, [place] [id number] [place] [address] 21902- 6141 Mar, Dysuria R30.0 ; Other chronic pain G89.29 ; Scoliosis, unspecified scoliosis type, unspecified spinal region M41.9 and Chronic urinary tract infection N39.0 [facility] [id number] [place] [address] 22192- 9711 Feb, Arthralgia M25.50 and Myalgia M79.1 [place] [address] [address] 9395 Feb, [facility] [place] [facility] [address] [address] 5898 Feb, [facility] [place] [facility] [address] [address]- 4820 Feb, Closed compression fracture of L4 lumbar vertebra with routine healing, subsequent encounter S32.040D ; Closed nondisplaced fracture of phalanx of left great toe with routine healing, unspecified phalanx, subsequent encounter S92.405D and Chronic urinary tract infection N39.0 [facility] [place] [facility] [id number] [place] [address] 47149- 9083 Jan, Closed compression fracture of fourth lumbar vertebra, initial encounter S32.040A [place] [address] [address]- 8511 Jan, Urinary tract infection, site not specified N39.0 [facility] [place] [facility] [address] [address]- 7090 Jan, [facility] [place] [facility] [id number] [place] [address] 97444- 7836 Jan, [facility] [place] [facility] [address] [address]- 0832 Jan, Arthralgia M25.50 and Myalgia M79.1 [facility] [place] [facility] [address] [address]- 6744 Jan, Need for prophylaxis against urinary tract infection Z29.8 and Urinary tract infection, site not specified N39.0 [facility] [place] [facility] [address] [address]- 7927 Dec, Urinary tract infection, site not specified N39.0 and Need for prophylaxis against urinary tract infection Z29.8 [facility] [place] [facility] [address] [address]- 7048 Dec, Major depressive disorder, single episode, unspecified F32.9 ; Myalgia M79.1 ; Arthralgia M25.50 and FPC 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 Z79.891 [facility] [place] [facility] [id number] [place] [address] 51624- 1033 Dec, Other chronic pain G89.29 and Dysuria R30.0 [facility] [place] [facility] [address] 66983- 7102 Nov, long term 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 Z79.891 [facility] [place] [facility] [id number] [place] [address] 35255- 3529 Nov, Acute midline low back pain without sciatica M54.5 and long term 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 Z79.891 [facility] [id number] [place] [address] 85156- 2001 Nov, [place] [address] 22040- 8102 October, [facility] [facility] [address] 38591- 8722 October, [place] [address] 84526- 0024 Sep, Right leg pain M79.604 [place] [facility] [id number] [place] [address] 06818- 3642 Sep, [facility] [facility] [id number] [place] [address] 93094- 1443 Aug, Right leg pain M79.604 [facility] [facility] [address] 34658- 6956 Jul, [place] [address] 61460- 0610 Jul, Arthralgia M25.50 and Right leg pain M79.604 [place] [address] 24407- 5722 Jun, Arthralgia M25.50 [place] [id number] [place] [address] 23887- 9426 Jun, [place] [id number] [place] [address] 05734- 9378 Jun, Right leg pain M79.604 [place] [facility] [id number] [place] [address] 12870- 7928 Jun, Right leg pain M79.604 [facility] [facility] [id number] [place] [address] 85782- 2189 Jun, Abnormal mammogram of left breast R92.[address] 41985- 8485 May, Routine gynecological examination V72.31 ; Breast cancer screening Z12.39 ; Cervical cancer screening Z12.4 ; Colon cancer screening Z12.11 and Calculus of gallbladder without cholecystitis without obstruction K80.20 [place] [id number] [place] [address] 34092- 1324 May, Arthralgia M25.[address] 79440- 8659 Apr, Arthralgia M25.50 [id number] [place] [address] 15396- 4251 Apr, Screening, lipid Z13.220 [id number] [place] [address] 41231- 7070 14 Apr, 2016 Other chronic pain G89.29 ; Scoliosis, unspecified scoliosis type, unspecified spinal region M41.9 ; Right leg pain M79.604 ; Major depressive disorder, single episode, unspecified F32.9 ; Fatigue due to exposure, subsequent encounter T73.2XXD ; Dysthymia F34.1 and Screening, lipid Z13.220 [id number] [place] [address] 04152- 1869 Apr, Arthralgia M25.50 [facility] [place] [facility] [address], [place] [address]- 9452 Mar, Dysthymia 300.4 [facility] [place] [facility] [id number] [place] [address] 11569- 0561 Mar, Arthralgia M25.50 [facility] [place] [facility] [id number] [place] [address] 96323- 3921 Feb, Arthralgia M25.50 [facility] [facility] [id number] [place] [address] 77654- 8186 Jan, Arthralgia M25.50 [facility] [facility] [id number] [place] [address] 05260- 1669 Dec, 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50 [facility] [facility] [id number] [place] [address] 18551- 4657 Nov, Arthralgia M25.50 [facility] [facility] [id number] [place] [address] 68434- 6598 October, Arthralgia M25.50 and Scoliosis, unspecified scoliosis type , unspecified spinal region M41.9 [facility] [facility] [id number] [place] [address] 41808- 0999 Sep, [facility] [place] [facility] [id number] [place] [address] 35304- 8730 Aug, [place] [id number] [place] [address] 44939- 0344 Aug, Arthralgia M25.50 ; Myalgia M79.1 and Scoliosis M41.9 [place] [id number] [place] [address] 11369- 1831 Jul, Other chronic pain G89.29 [place] [id number] [place] [address] 33186- 4359 Jul, Other chronic pain G89.29 [place] [id number] [place] [address] 31912- 2234 Jul, Impingement syndrome of both shoulders M75.41 [place] [id number] [place] [address] 31801- 8607 Jun, [place] [id number] [place] [address] 12748- 6940 Jun, [place] [id number] [place] [address] 36667- 1584 Jun, Scoliosis (and kyphoscoliosis), idiopathic M41.20 and Other chronic pain G89.29 [facility] [id number] [place] [address] 58099 -1614 Jun, Upper respiratory tract infection, unspecified type 465.9 and Rhinorrhea J34.89 [facility] [facility] [id number] [place] [address] 22096- 8999 May, [place] [address] 58953- 5387 May, [place] [id number] [place] [address] 05439- 8217 Apr, Dysuria R30.0 ; Urinary tract infection, site not specified N39.0 and Hematuria, unspecified R31.9 [facility] [place] [facility] [id number] [place] [address] 20009- 2730 Apr, [facility] [place] [facility] [id number] [place] [address] 690374- 1067 Mar, Family history of early CAD Z82.49 [place] [address] 67858- 1267 Mar, Other chronic pain G89.29 [place] [id number] [place] [address] 46745- 2236 Mar, Impingement syndrome of both shoulders M75.41 [place] [id number] [place] [address] 01553- 5757 Mar, Other chronic pain G89.29 ; Dysthymia F34.1 ; Family history of early CAD Z82.49 ; Dysuria R30.0 and Other specified disorders of Eustachian tube, right ear H69.81 [place] [id number] [place] [address] 55252- 1110 Mar, [facility] [place] [facility] [id number] [place] [address] 43736- 9827 Feb, [facility] [place] [facility] [id number] [place] [address] 51329- 3482 Jan, [facility] [place] [facility] [id number] [place] [address] 41614- 3461 Jan, Eustachian tube dysfunction 381.81 and Dysthymia 300.4 [facility] [place] [facility] [id number] [place] [address] 74590- 8006 Dec, [facility] [place] [facility] [id number] [place] [address] 39610- 9929 Nov, Impingement syndrome of both shoulders 726.2 [facility] [place] [facility] [id number] [place] [address] 77871- 2750 Nov, [facility] [address] [id number] [place] [address]- 3227 Nov, [facility] [address] [facility] [id number] [place] [address]- 7296 Nov, Urgency of urination 788.63 [facility] [address] [facility] [id number] [place] [address]- 6686 October, [facility] [address] [id number] [place] [address]- 8256 October, [facility] [address] [id number] [place] [address]- 8955 Sep, [facility] [place] [facility] [address] [facility] [id number] [place] [address]- 4761 Sep, [facility] [id number] [place] [address]- 6390 Aug, [facility] [place] [facility] [address] [id number] [place] [address]- 5472 Aug, [facility] [place] [facility] [address] [id number] [place] [address]- 6332 Aug, [facility] [place] [facility] [address] [facility] [id number] [place] [address]- 9431 Aug, [facility] [place] [facility] [id number] [place] [address]- 1581 Aug, [facility] [place] [facility] [address] [id number] [place] [address] 2541 Aug, [facility] [place] [facility] [address] [id number] [place] [address] 2546 Aug, [facility] [place] [facility] [address] [facility] [id number] [place] [address]- 4139 Jul, [facility] [place] [facility] [id number] [place] [address]- 5606 Jul, [facility] [place] [facility] [address] [facility] [id number] [place] [address]- 7699 Jul, 2014 [facility] [place] [facility] [address] [id number] [place] [address]- 1685 Jul, 2014 [facility] [place] [facility] [address] [id number] [place] [address]- 5666 Jul, 2014 [facility] [place] [facility] [address] [id number] [place] [address]- 9006 Jul, 2014 [facility] [place] [facility] [address] [id number] [place] [address]- 2481 Jun, [facility] [place] [facility] [address] [id number] [place] [address]- 0422 Jun, [facility] [place] [facility] [address] [facility] [id number] [place] [address]- 9236 May, [facility] [place] [facility] [address] [id number] [place] [address]- 2343 May, [facility] [place] [facility] [address] [id number] [place] [address]- 9482 May, [facility] [place] [facility] [address] [facility] [id number] [place] [address]- 6548 May, [facility] [place] [facility] [address] [facility] [id number] [place] [address]- 8161 Mar, [facility] [place] [facility] [address] [facility] [id number] [place] [address]- 1419 Mar, [facility] [place] [facility] [address] [id number] [place] [address]- 2194 Feb, [facility] [place] [facility] [address] [id number] [place] 6165 Feb, [facility] [place] [facility] [address] [facility] [id number] [place] [address]- 9077 Jan, [facility] [place] [facility] [address] [facility] [id number] [place] [address]- 1231 Jan, [facility] [place] [facility] [address] [id number] [place] [address]- 4092 Jan, [facility] [place] [facility] [address] [id number] [place] [address]- 7704 Jan, [facility] [place] [facility] [address] [id number] [place] [address]- 1059 Jan, [facility] [place] [facility] [address] [id number] [place] [address]- 5809 Nov, [facility] [place] [facility] [address] [id number] [place] [address]- 5333 Nov, [facility] [place] [facility] [address] [id number] [place] [address]- 4561 October, [facility] [place] [facility] [address] [id number] [place] [address]- 0214 October, [facility] [place] [facility] [address] [id number] [place] [address]- 0938 October, [facility] [place] [facility] [address] [id number] [place] [address]- 9998 October, [facility] [place] [facility] [address] [id number] [place] [address]- 2544 Sep, [facility] [place] [facility] [address] [id number] [place] [address]- 5802 Aug, [facility] [place] [facility] [address] [id number] [place] [address]- 3511 Aug, [facility] [place] [facility] [address] [id number] [place] [address]- 8912 Aug, [facility] [place] [facility] [address] [id number] [place] [address]- 9008 Aug, [facility] [place] [facility] [address] [id number] [place] [address]- 7097 Jul, [facility] [place] [facility] [address] [id number] [place] [address]- 6673 Jul, [facility] [address] [id number] [place] [address]- 8203 Jun, [facility] [place] [facility] [address] [id number] [place] [address]- 1290 Jun, [facility] [place] [facility] [address] [id number] [place] [address]- 6919 Jun, [facility] [place] [facility] [address] [id number] [place] [address]- 9632 Jun, [facility] [place] [facility] [address] [id number] [place] [address]- 7788 Jun, [facility] [place] [facility] [address] [id number] [place] [address]- 4500 Jun, [facility] [address] [id number] [place] [address]- 8683 Mar, [facility] [place] [facility] [address] [id number] [place] [address]- 5335 Mar, [facility] [place] [facility] [address] [id number] [place] [address]- 1848 Feb, [facility] [place] [facility] [address] [id number] [place] [address]- 7005 Feb, [facility] [place] [facility] [address] [id number] [place] [address]- 7748 09 Feb, 2013 [facility] [place] [facility] [address] [id number] [place] [address]- 0215 Jan, [facility] [place] [facility] [address] [id number] [place] [address]- 4252 15 Jan, 2013 [facility] [place] [facility] [address] [id number] [place] [address] 254 Dec, [facility] [place] [facility] [address] [id number] [place] [address]- 5158 Nov, [facility] [place] [facility] [address] [id number] [place] [address]- 1410 Sep, [facility] [place] [facility] [address] [id number] [place] [address]- 5541 Aug, [facility] [address] [id number] [place] [address]- 3982 Aug, [facility] [place] [facility] [address] [id number] [place] [address]- 4846 Aug, [facility] [address] [id number] [place] [address]- 4011 Jul, [facility] [place] [facility] [address] [id number] [place] [address]- 7318 Jul, [facility] [address] [id number] [place] [address] Jul, [facility] [address] [id number] [place] [address] Jul, [facility] [address] [id number] [place] [address] Jul, [facility] [address] [id number] [place] [address] Apr, [facility] [address] [id number] [place] [address] Apr, [facility] [place] [facility] [address] [id number] [place] [address] Jan, [facility] [place] [facility] [address] [id number] [place] [address] Jan, [facility] [place] [facility] [address] [id number] [place] [address] Dec, [facility] [place] [facility] [address] [id number] [place] [address] Dec, [facility] [place] [facility] [address] [facility] [id number] [place] [address] Dec, [facility] [address] [id number] [place] [address] Dec, [facility] [address] [facility] [id number] [place] [address] Dec, [facility] [address] [facility] [id number] [place] [address] October, [facility] [address] [facility] [id number] [place] [address] Aug, [facility] [address] [facility] [id number] [place] [address] Aug, [facility] [address] [facility] [id number] [place] [address] Aug, [facility] [address] [facility] [id number] [place] [address] Jul, [facility] [address] [facility] [id number] [place] [address] May, [facility] [address] [facility] [id number] [place] [address] Apr, [facility] [address] [facility] [id number] [place] [address] May, [facility] [id number] [address] May, [facility] [address] [facility] [id number] [place] [address] May, [facility] [address] [facility] [id number] [place] [address] Mar, [facility] [address] [facility] [id number] [place] [address] Mar, [facility] [address] [facility] [id number] [address] Aug, IMMUNIZATIONS No Known Immunizations SOCIAL HISTORY Never Assessed REASON FOR VISIT Refill request PLAN OF CARE VITAL SIGNS MEDICATIONS Medication Instructions Dosage Frequency Start Date End Date Duration Status Vitamin D-3 1000 UNIT Orally Once a day 2 capsule 24h Apr, Active RESULTS No Results PROCEDURES No Known procedures INSTRUCTIONS MEDICATIONS ADMINISTERED No Known Medications MEDICAL (GENERAL) HISTORY Type Description Date Medical History chronic pain Medical History arthritis Surgical History Nephrectomy - age 3 Surgical History Appendectomy Hospitalization History surgery Hospitalization History childbirth x 3
--- OUTSIDE RECORDS SUMMARY | 2018-06-07 13:30 | XMS REPORT ---
Author Author CHUY NGUYEN Organization [facility] Address [address] [place] [address] Care Team Providers Care Mortgage Loan Funder Name Role Phone CHUY NGUYEN Unavailable PROBLEMS Type Condition ICD9-CM Code [id number]-QR Code Onset Dates Condition Status SNOMED Code Problem Scoliosis (and kyphoscoliosis), idiopathic M41.20 Active 88793055 Problem Myalgia M79.1 Active 91340236 Problem Other chronic pain G89.29 Active 94732439 Problem Urinary urgency R39.15 Active 55956913 Problem Dysthymia F34.1 Active 91108737 Problem Varicose veins I86.8 Active 567205933 Problem Need for prophylaxis against urinary tract infection Z29.8 Active 586133859 Problem Abnormal mammogram of left breast R92.8 Active 064444604 Problem Scoliosis, unspecified scoliosis type, unspecified spinal region M41.9 Active 459605495 Problem Arthralgia M25.50 Active 56240678 Problem Calculus of gallbladder without cholecystitis without obstruction K80.20 Active 899381017 Problem Major depressive disorder, single episode, unspecified F32.9 Active 04674419 ALLERGIES No Information ENCOUNTERS Encounter Location Date Diagnosis [facility] [id number] [place] [address] 50057- 9921 October, Other chronic pain G89.29 and Myalgia M79.1 [facility] [id number] [address] Sep, Other chronic pain G89.29 [facility] [id number] [place] [address] 64967- 9337 Aug, Other chronic pain G89.29 [facility] [id number] [place] [address] 97716- 2284 Aug, Scoliosis (and kyphoscoliosis), idiopathic M41.20 [facility] [id number] [address] Aug, [place] [id number] [place] [address] 52346- 0367 12 Aug, 2017 Dysuria R30.0 ; Scoliosis, unspecified scoliosis type, unspecified spinal region M41.9 ; Encounter for therapeutic drug level monitoring Z51.81 and Alcohol use Z78.9 [place] [id number] [place] [address] 90550- 0767 07 Aug, 2017 Other chronic pain G89.29 [place] [id number] [place] [address] 08219- 7684 23 Jul, 2017 Chronic urinary tract infection N39.0 [place] [id number] [place] [address] 11529- 7305 07 Jul, 2017 Other chronic pain G89.29 [place] [id number] [place] [address] 59361- 7575 Jun, [place] [id number] [place] [address] 77242- 6094 Jun, [place] [id number] [place] [address] 50299- 1155 Jun, Acute left-sided thoracic back pain M54.6 [facility] [id number] [place] [address] 28851 -7387 18 Jun, 2017 Cough R05 and Acute bilateral thoracic back pain M54.6 [facility] [id number] [place] [address] 24360 -6043 15 Jun, 2017 Back pain, unspecified back location, unspecified back pain laterality, unspecified chronicity M54.9 and Left flank pain R10.9 [place] [id number] [place] [address] 94132- 3167 Jun, Other chronic pain G89.29 [place] [id number] [place] [address] 1872 Jun, Myalgia M79.1 [place] [id number] [place] [address] 27640- 8609 May, Other chronic pain G89.29 [place] [id number] [place] [address] 34257- 8064 May, Myalgia M79.1 and Fatigue due to exposure, subsequent encounter T73.2XXD [place] [id number] [place] [address] 11029- 2711 05 May, 2017 Fatigue due to exposure, subsequent encounter T73.2XXD [place] [address] 53430- 3644 15 Apr, 2017 Other chronic pain G89.29 and Myalgia M79.1 [place] [address] 18676- 1440 08 Apr, 2017 Closed nondisplaced fracture of phalanx of left great toe with routine healing, unspecified phalanx, subsequent encounter S92.405D ; Dysuria R30.0 ; Localized edema R60.0 and Arthralgia M25.50 [place] [id number] [place] [address] 80042- 7097 Mar, Other chronic pain G89.29 and Myalgia M79.1 [place] [id number] [place] [address] 86793- 2181 Mar, [place] [id number] [place] [address] 23659- 8221 Mar, Dysuria R30.0 ; Other chronic pain G89.29 ; Scoliosis, unspecified scoliosis type, unspecified spinal region M41.9 and Chronic urinary tract infection N39.0 [place] [id number] [place] [address] 47485- 4510 Feb, Arthralgia M25.50 and Myalgia M79.1 [place] [address] [address] 2461 Feb, [facility] [address] [address] 2447 Feb, [facility] [address] [address] 8743 Feb, Closed compression fracture of L4 lumbar vertebra with routine healing, subsequent encounter S32.040D ; Closed nondisplaced fracture of phalanx of left great toe with routine healing, unspecified phalanx, subsequent encounter S92.405D and Chronic urinary tract infection N39.0 [facility] [address] [place] [address] 00141- 7020 Jan, Closed compression fracture of fourth lumbar vertebra, initial encounter S32.040A [place] [address] [address]- 5331 Jan, Urinary tract infection, site not specified N39.0 [facility] [address] [address]- 2459 Jan, [facility] [address] [place] [address] 96342- 3390 Jan, [facility] [address] [address]- 4872 Jan, Arthralgia M25.50 and Myalgia M79.1 [facility] [address] [address] 2053 Jan, Need for prophylaxis against urinary tract infection Z29.8 and Urinary tract infection, site not specified N39.0 [facility] [address] [address] 1983 Dec, Urinary tract infection, site not specified N39.0 and Need for prophylaxis against urinary tract infection Z29.8 [facility] [address] [address]- 0185 Dec, Major depressive disorder, single episode, unspecified F32.9 ; Myalgia M79.1 ; Arthralgia M25.50 and group home 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 Z79.891 [facility] [id number] [place] [address] 50619- 6409 Dec, Other chronic pain G89.29 and Dysuria R30.0 [facility] [address] 67601- 7396 Nov, 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 [facility] [id number] [place] [address] 70705- 8528 Nov, Acute midline low back pain without sciatica M54.5 and 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 [place] [id number] [place] [address] 92322- 2107 Nov, [place] [address] 22095- 7811 October, [facility] [address] 19812- 6912 October, [place] [address] 56809- 7529 Sep, Right leg pain M79.604 [place] [id number] [place] [address] 91290- 5449 Sep, [facility] [id number] [place] [address] 86990- 9163 Aug, Right leg pain M79.604 [facility] [address] 23307- 6876 Jul, [place] [address] 40621- 5271 Jul, Arthralgia M25.50 and Right leg pain M79.604 [place] [address] 22350- 0117 Jun, Arthralgia M25.50 [place] [address] [place] [address] 73724- 2489 Jun, [place] [id number] [place] [address] 40547- 7787 Jun, Right leg pain M79.604 [place] [id number] [place] [address] 41010- 0677 Jun, Right leg pain M79.604 [place] [id number] [place] [address] 48787- 1802 Jun, Abnormal mammogram of left breast R92.[address] 6[address]70- 2845 May, Routine gynecological examination V72.31 ; Breast cancer screening Z12.39 ; Cervical cancer screening Z12.4 ; Colon cancer screening Z12.11 and Calculus of gallbladder without cholecystitis without obstruction K80.20 [place] [id number] [place] [address] 46137- 4399 May, Arthralgia M25.[address] 82317- 7572 Apr, Arthralgia M25.50 [id number] [place] [address] 04232- 0885 Apr, Screening, lipid Z13.220 [address] [id number] [place] [address] 21519- 7075 14 Apr, 2016 Other chronic pain G89.29 ; Scoliosis, unspecified scoliosis type, unspecified spinal region M41.9 ; Right leg pain M79.604 ; Major depressive disorder, single episode, unspecified F32.9 ; Fatigue due to exposure, subsequent encounter T73.2XXD ; Dysthymia F34.1 and Screening, lipid Z13.220 [id number] [place] [address] 05371- 3381 Apr, Arthralgia M25.50 [facility] [address] [address]- 4718 Mar, Dysthymia 300.4 [facility] [id number] [place] [address] 32261- 9982 Mar, Arthralgia M25.50 [facility] [id number] [place] [address] 85922- 0570 Feb, Arthralgia M25.50 [facility] [id number] [place] [address] 81995- 4867 Jan, Arthralgia M25.50 [facility] [id number] [place] [address] 43145- 4447 Dec, 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 [place] [id number] [place] [address] 76555- 9209 Dec, [facility] [id number] [place] [address] 85630- 1081 Dec, Right leg pain M79.604 and Scoliosis, unspecified scoliosis type, unspecified spinal region M41.9 [place] [id number] [place] [address] 95502- 8164 Dec, Right leg pain M79.604 and Scoliosis, unspecified scoliosis type, unspecified spinal region M41.9 [facility] [id number] [place] [address] 25891- 5455 Dec, Arthralgia M25.50 [facility] [id number] [place] [address] 66502- 0047 Nov, Arthralgia M25.50 [facility] [id number] [place] [address] 75272- 4212 October, Arthralgia M25.50 and Scoliosis, unspecified scoliosis type , unspecified spinal region M41.9 [facility] [id number] [place] [address] 96163- 9039 Sep, [facility] [id number] [place] [address] 66139- 8386 Aug, [place] [id number] [place] [address] 97354- 6753 Aug, Arthralgia M25.50 ; Myalgia M79.1 and Scoliosis M41.9 [place] [id number] [place] [address] 53953- 6784 Jul, Other chronic pain G89.29 [place] [id number] [place] [address] 38642- 6961 Jul, Other chronic pain G89.29 [place] [id number] [place] [address] 19248- 7988 Jul, Impingement syndrome of both shoulders M75.41 [place] [id number] [place] [address] 15309- 2908 Jun, [place] [id number] [place] [address] 32676- 8496 Jun, [place] [id number] [place] [address] 56217- 3537 Jun, Scoliosis (and kyphoscoliosis), idiopathic M41.20 and Other chronic pain G89.29 [facility] [address] [place] [address] 12454 -3922 Jun, Upper respiratory tract infection, unspecified type 465.9 and Rhinorrhea J34.89 [facility] [id number] [place] [address] 00426- 0264 May, [place] [address] 52789- 0301 May, [place] [id number] [place] [address] 42129- 3235 Apr, Dysuria R30.0 ; Urinary tract infection, site not specified N39.0 and Hematuria, unspecified R31.9 [facility] [id number] [place] [address] 82161- 3129 Apr, [facility] [id number] [place] [address] 111811- 4857 Mar, Family history of early CAD Z82.49 [place] [address] 40950- 0630 Mar, Other chronic pain G89.29 [place] [id number] [place] [address] 81917- 5988 Mar, Impingement syndrome of both shoulders M75.41 [place] [id number] [place] [address] 39050- 4694 Mar, Other chronic pain G89.29 ; Dysthymia F34.1 ; Family history of early CAD Z82.49 ; Dysuria R30.0 and Other specified disorders of Eustachian tube, right ear H69.81 [place] [id number] [place] [address] 20466- 5329 Mar, [facility] [id number] [place] [address] 46305- 7711 Feb, [facility] [id number] [place] [address] 47803- 6756 Jan, [facility] [id number] [place] [address] 81390- 2777 Jan, Eustachian tube dysfunction 381.81 and Dysthymia 300.4 [facility] [id number] [place] [address] 50379- 0138 Dec, [facility] [id number] [place] [address] 61150- 3747 Nov, Impingement syndrome of both shoulders 726.2 [facility] [id number] [place] [address] 92405- 0046 Nov, [facility] [address] [id number] [place] [address]- 7669 Nov, [facility] [address] [facility] [id number] [place] [address]- 1446 Nov, Urgency of urination 788.63 [facility] [address] [facility] [id number] [place] [address]- 5956 October, [facility] [address] [id number] [place] [address]- 2206 October, [facility] [address] [id number] [place] [address]- 5823 Sep, [facility] [place] [facility] [address] [facility] [id number] [place] [address]- 9108 Sep, [facility] [id number] [place] [address]- 0546 Aug, [facility] [place] [facility] [address] [id number] [place] [address]- 3677 Aug, [facility] [place] [facility] [address] [id number] [place] [address]- 0037 Aug, [facility] [place] [facility] [address] [facility] [id number] [place] [address]- 8537 Aug, [facility] [place] [facility] [id number] [place] [address]- 9823 Aug, [facility] [place] [facility] [address] [id number] [place] [address] 2548 Aug, [facility] [place] [facility] [address] [id number] [place] [address] 2546 Aug, [facility] [place] [facility] [address] [facility] [id number] [place] [address]- 9818 Jul, [facility] [place] [facility] [id number] [place] [address]- 3336 Jul, [facility] [place] [facility] [address] [facility] [id number] [place] [address]- 4017 Jul, 2014 [facility] [place] [facility] [address] [id number] [place] [address]- 5396 Jul, 2014 [facility] [place] [facility] [address] [id number] [place] [address]- 5616 Jul, 2014 [facility] [place] [facility] [address] [id number] [place] [address]- 0606 Jul, 2014 [facility] [place] [facility] [address] [id number] [place] [address]- 2497 Jun, [facility] [place] [facility] [address] [id number] [place] [address]- 5744 Jun, [facility] [place] [facility] [address] [facility] [id number] [place] [address]- 7104 May, [facility] [place] [facility] [address] [id number] [place] [address]- 9499 May, [facility] [place] [facility] [address] [id number] [place] [address]- 4076 May, [facility] [place] [facility] [address] [facility] [id number] [place] [address]- 1625 May, [facility] [place] [facility] [address] [facility] [id number] [place] [address]- 8321 Mar, [facility] [place] [facility] [address] [facility] [id number] [place] [address]- 6449 Mar, [facility] [place] [facility] [address] [id number] [place] [address]- 2244 Feb, [facility] [place] [facility] [address] [id number] [place] 2669 Feb, [facility] [place] [facility] [address] [facility] [id number] [place] [address]- 6323 Jan, [facility] [place] [facility] [address] [facility] [id number] [place] [address]- 9323 Jan, [facility] [place] [facility] [address] [id number] [place] [address]- 7302 Jan, [facility] [place] [facility] [address] [id number] [place] [address]- 5522 Jan, [facility] [place] [facility] [address] [id number] [place] [address]- 0707 Jan, [facility] [place] [facility] [address] [id number] [place] [address]- 7123 Nov, [facility] [place] [facility] [address] [id number] [place] [address]- 3494 Nov, [facility] [place] [facility] [address] [id number] [place] [address]- 4778 October, [facility] [place] [facility] [address] [id number] [place] [address]- 8130 October, [facility] [place] [facility] [address] [id number] [place] [address]- 8139 October, [facility] [place] [facility] [address] [id number] [place] [address]- 8942 October, [facility] [place] [facility] [address] [id number] [place] [address]- 3314 Sep, [facility] [place] [facility] [address] [id number] [place] [address]- 2255 Aug, [facility] [place] [facility] [address] [id number] [place] [address]- 5520 Aug, [facility] [place] [facility] [address] [id number] [place] [address]- 9324 Aug, [facility] [place] [facility] [address] [id number] [place] [address]- 6284 Aug, [facility] [place] [facility] [address] [id number] [place] [address]- 7152 Jul, [facility] [place] [facility] [address] [id number] [place] [address]- 8781 Jul, [facility] [address] [id number] [place] [address]- 2758 Jun, [facility] [place] [facility] [address] [id number] [place] [address]- 3902 Jun, [facility] [place] [facility] [address] [id number] [place] [address]- 4999 Jun, [facility] [place] [facility] [address] [id number] [place] [address]- 4906 Jun, [facility] [place] [facility] [address] [id number] [place] [address]- 3441 Jun, [facility] [place] [facility] [address] [id number] [place] [address]- 0423 Jun, [facility] [address] [id number] [place] [address]- 6086 Mar, [facility] [place] [facility] [address] [id number] [place] [address]- 3825 Mar, [facility] [place] [facility] [address] [id number] [place] [address]- 3083 Feb, [facility] [place] [facility] [address] [id number] [place] [address]- 7355 Feb, [facility] [place] [facility] [address] [id number] [place] [address]- 0988 09 Feb, 2013 [facility] [place] [facility] [address] [id number] [place] [address]- 3857 Jan, [facility] [place] [facility] [address] [id number] [place] [address]- 7422 15 Jan, 2013 [facility] [place] [facility] [address] [id number] [place] [address] 2543 Dec, [facility] [place] [facility] [address] [id number] [place] [address]- 6685 Nov, [facility] [place] [facility] [address] [id number] [place] [address]- 9764 Sep, [facility] [place] [facility] [address] [id number] [place] [address] Aug, [facility] [address] [id number] [place] [address] Aug, [facility] [place] [facility] [address] [id number] [place] [address] Aug, [facility] [address] [id number] [place] [address] Jul, [facility] [place] [facility] [address] [id number] [place] [address] Jul, [facility] [address] [id number] [place] [address] Jul, [facility] [address] [id number] [place] [address] Jul, [facility] [address] [id number] [place] [address] Jul, [facility] [address] [id number] [place] [address] Apr, [facility] [address] [id number] [place] [address] Apr, [facility] [place] [facility] [address] [id number] [place] [address] Jan, [facility] [place] [facility] [address] [id number] [place] [address] Jan, [facility] [place] [facility] [address] [id number] [place] [address] Dec, [facility] [place] [facility] [address] [id number] [place] [address] Dec, [facility] [place] [facility] [address] [facility] [id number] [place] [address] Dec, [facility] [address] [id number] [place] [address] Dec, [facility] [address] [facility] [id number] [place] [address] Dec, [facility] [address] [facility] [id number] [place] [address] October, [facility] [address] [facility] [id number] [place] [address] Aug, [facility] [address] [facility] [id number] [place] [address] Aug, [facility] [address] [facility] [id number] [place] [address] Aug, [facility] [address] [facility] [id number] [place] [address] Jul, [facility] [address] [facility] [id number] [place] [address] May, [facility] [address] [facility] [id number] [place] [address] Apr, [facility] [address] [facility] [id number] [place] [address] May, [facility] [id number] [place] [address] May, [facility] [address] [facility] [id number] [place] [address] May, [facility] [facility] [address] [facility] [id number] [place] [address], [facility] [address] [facility] [id number] [place] [address] Mar, [facility] [address] [facility] [id number] [address] Aug, IMMUNIZATIONS No Known Immunizations SOCIAL HISTORY Never Assessed REASON FOR VISIT Controlled Med Refill 06/30/17 PLAN OF CARE VITAL SIGNS MEDICATIONS Medication Instructions Dosage Frequency Start Date End Date Duration Status Lyrica 150 MG Orally 3 times a day 1 capsule 8h Apr, 30 days Active RESULTS No Results PROCEDURES No Known procedures INSTRUCTIONS MEDICATIONS ADMINISTERED No Known Medications MEDICAL (GENERAL) HISTORY Type Description Date Medical History chronic pain Medical History arthritis Surgical History Nephrectomy - age 3 Surgical History Appendectomy Hospitalization History surgery Hospitalization History childbirth x 3
--- OUTSIDE RECORDS SUMMARY | 2018-06-07 13:31 | XMS REPORT ---
Author Author CHUY NGUYEN [facility] Address [address] [place] [address] Care Team Providers Care Religious Healer Name Role Phone CHUY NGUYEN Unavailable PROBLEMS Type Condition ICD9-CM Code PVQ36-MV Code Onset Dates Condition Status SNOMED Code Problem Scoliosis (and kyphoscoliosis), idiopathic M41.20 Active 52186123 Problem Myalgia M79.1 Active 35129737 Problem Other chronic pain G89.29 Active 77774107 Problem Urinary urgency R39.15 Active 39476268 Problem Dysthymia F34.1 Active 85542875 Problem Varicose veins I86.8 Active 426840679 Problem Need for prophylaxis against urinary tract infection Z29.8 Active 004230023 Problem Abnormal mammogram of left breast R92.8 Active 746910094 Problem Scoliosis, unspecified scoliosis type, unspecified spinal region M41.9 Active 784466488 Problem Arthralgia M25.50 Active 70821769 Problem Calculus of gallbladder without cholecystitis without obstruction K80.20 Active 029354099 Problem Major depressive disorder, single episode, unspecified F32.9 Active 86361236 ALLERGIES No Information ENCOUNTERS Encounter Location Date Diagnosis [place] [id number] [place] [address] 05168- 8974 30 Aug, 2017 Other chronic pain G89.29 [facility] [id number] [place] [address] 50528- 6220 29 Aug, 2017 Scoliosis (and kyphoscoliosis), idiopathic M41.20 [facility] [id number] [place] [address] 09786- 7021 Aug, [facility] [id number] [place] [address] 65274- 0213 12 Aug, 2017 Dysuria R30.0 ; Scoliosis, unspecified scoliosis type, unspecified spinal region M41.9 ; Encounter for therapeutic drug level monitoring Z51.81 and Alcohol use Z78.9 [facility] [id number] [place] [address] 92963- 1516 Aug, Other chronic pain G89.29 [facility] [id number] [place] [address] 00565- 4074 Jul, Chronic urinary tract infection N39.0 [facility] [id number] [place] [address] 61488- 6073 Jul, Other chronic pain G89.29 [place] [address] [id number] [place] [address] 31507- 8535 Jun, [facility] [id number] [place] [address] 29781- 6779 Jun, [place] [address] [id number] [place] [address] 44225- 7665 Jun, Acute left-sided thoracic back pain M54.6 [facility] [id number] [place] [address] 74790 -2383 18 Jun, 2017 Cough R05 and Acute bilateral thoracic back pain M54.6 [facility] [id number] [place] [address] 33690 -0977 15 Jun, 2017 Back pain, unspecified back location, unspecified back pain laterality, unspecified chronicity M54.9 and Left flank pain R10.9 [facility] [id number] [place] [address] 02138- 2237 Jun, Other chronic pain G89.29 [facility] [id number] [place] [address] 80776- 0610 Jun, Myalgia M79.1 [facility] [id number] [place] [address] 95668- 1886 May, Other chronic pain G89.29 [facility] [id number] [place] [address] 96845- 4749 May, Myalgia M79.1 and Fatigue due to exposure, subsequent encounter T73.2XXD [place] [address] [id number] [place] [address] 85847- 7389 05 May, 2017 Fatigue due to exposure, subsequent encounter T73.2XXD [place] [address] [id number] [place] [address] 40701- 3227 15 Apr, 2017 Other chronic pain G89.29 and Myalgia M79.1 [place] [address] 97648- 2543 08 Apr, 2017 Closed nondisplaced fracture of phalanx of left great toe with routine healing, unspecified phalanx, subsequent encounter S92.405D ; Dysuria R30.0 ; Localized edema R60.0 and Arthralgia M25.50 [place] [address] 30333- 2773 Mar, Other chronic pain G89.29 and Myalgia M79.1 [place] [address] [id number] [place] [address] 86920- 8085 Mar, [place] [address] [place] [id number] [place] [address] 49705- 2386 Mar, Dysuria R30.0 ; Other chronic pain G89.29 ; Scoliosis, unspecified scoliosis type, unspecified spinal region M41.9 and Chronic urinary tract infection N39.0 [place] [address] [address] [id number] [place] [address] 83577- 2031 Feb, Arthralgia M25.50 and Myalgia M79.1 [place] [address] 91693- 4628 13 Feb, 2017 [place] [address] [id number] [place] [address] 56678- 0833 Feb, [place] [address] [address] [id number] [place] [address] 69262- 6730 Feb, Closed compression fracture of L4 lumbar vertebra with routine healing, subsequent encounter S32.040D ; Closed nondisplaced fracture of phalanx of left great toe with routine healing, unspecified phalanx, subsequent encounter S92.405D and Chronic urinary tract infection N39.0 [facility] [address] [place] [address] 87240- 2500 Jan, Closed compression fracture of fourth lumbar vertebra, initial encounter S32.040A [facility] [address] [id number] [place] [address] 50001- 4552 Jan, Urinary tract infection, site not specified N39.0 [place] [address] [address] [id number] [place] [address] 48904- 0759 Jan, [place] [address] [id number] [place] [address] 20319- 8298 Jan, [place] [address] [id number] [place] [address] 30919- 0608 Jan, Arthralgia M25.50 and Myalgia M79.1 [place] [address] [id number] [place] [address] 45542- 0533 Jan, Need for prophylaxis against urinary tract infection Z29.8 and Urinary tract infection, site not specified N39.0 [place] [address] [place] [address] 73006- 5899 Dec, Urinary tract infection, site not specified N39.0 and Need for prophylaxis against urinary tract infection Z29.8 [facility] [address] [place] [address] 01826- 6473 Dec, Major depressive disorder, single episode, unspecified F32.9 ; Myalgia M79.1 ; Arthralgia M25.50 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 [facility] [address] [place] [address] 49884- 6852 Dec, Other chronic pain G89.29 and Dysuria R30.0 [place] [address] [id number] [place] [address] 78413- 1215 Nov, 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 [facility] [id number] [place] [address] 54712- 4659 Nov, Acute midline low back pain without sciatica M54.5 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 [facility] [id number] [place] [address] 17273- 0850 Nov, [facility] [id number] [place] [address] 42184- 1330 October, [facility] [id number] [place] [address] 60274- 5123 October, [facility] [id number] [place] [address] 05196- 8006 Sep, Right leg pain M79.604 [facility] [address] [id number] [place] [address] 42351- 8232 Sep, [facility] [id number] [place] [address] 44188- 6323 Aug, Right leg pain M79.604 [facility] [id number] [place] [address] 90850- 4527 Jul, [facility] [id number] [place] [address] 81890- 6388 Jul, Arthralgia M25.50 and Right leg pain M79.604 [facility] [address] [place] [address] 21343- 1653 Jun, Arthralgia M25.50 [facility] [address] [id number] [place] [address] 84282- 3566 Jun, [facility] [id number] [place] [address] 73436- 6871 Jun, Right leg pain M79.604 [place] [address] [id number] [place] [address] 54536- 9367 Jun, Right leg pain M79.[address] 68142- 7214 Jun, Abnormal mammogram of left breast R92.[address] 58486- 5115 May, Routine gynecological examination V72.31 ; Breast cancer screening Z12.39 ; Cervical cancer screening Z12.4 ; Colon cancer screening Z12.11 and Calculus of gallbladder without cholecystitis without obstruction K80.[address] 83633- 1861 May, Arthralgia M25.[address] 63196- 0194 Apr, Arthralgia M25.[address] 74449- 8326 Apr, Screening, lipid Z13.[address] 42183- 2428 14 Apr, 2016 Other chronic pain G89.29 ; Scoliosis, unspecified scoliosis type, unspecified spinal region M41.9 ; Right leg pain M79.604 ; Major depressive disorder, single episode, unspecified F32.9 ; Fatigue due to exposure, subsequent encounter T73.2XXD ; Dysthymia F34.1 and Screening, lipid Z13.220 [place] [id number] [place] [address] 18474- 4611 Apr, Arthralgia M25.[address] 39115- 8355 Mar, Dysthymia 300.[address] 55132- 9002 Mar, Arthralgia M25.[address] [place] [address] [address]- 6188 Feb, Arthralgia M25.50 [facility] [id number] [place] [address] 64706- 5950 Jan, Arthralgia M25.50 [facility] [id number] [place] [address] 01107- 6731 Dec, 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 [facility] [id number] [place] [address] 70899- 6280 Dec, [facility] [address] [place] [id number] [place] [address] 41284- 1286 Dec, Right leg pain M79.604 and Scoliosis, unspecified scoliosis type, unspecified spinal region M41.9 [facility] [address] [place] [id number] [place] [address] 90111- 9018 Dec, Right leg pain M79.604 and Scoliosis, unspecified scoliosis type, unspecified spinal region M41.9 [facility] [address] [id number] [place] [address] 51624- 5695 Dec, Arthralgia M25.50 [facility] [address] [place] [id number] [place] [address] 51745- 3931 Nov, Arthralgia M25.50 [facility] [address] [id number] [place] [address] 01350- 4602 October, Arthralgia M25.50 and Scoliosis, unspecified scoliosis type , unspecified spinal region M41.9 [facility] [address] [place] [address] 95025- 9912 Sep, [facility] [id number] [place] [address] 80718- 0083 Aug, [facility] [address] [place] [address] 39360- 2766 Aug, Arthralgia M25.50 ; Myalgia M79.1 and Scoliosis M41.9 [facility] [id number] [place] [address] 99753- 6971 Jul, Other chronic pain G89.29 [facility] [id number] [place] [address] 95151- 6424 Jul, Other chronic pain G89.29 [facility] [address] 63560- 0805 Jul, Impingement syndrome of both shoulders M75.41 [facility] [address] [place] [id number] [place] [address] 96247- 5006 Jun, [facility] [id number] [place] [address] 00482- 2205 Jun, [facility] [address] [place] [id number] [place] [address] 28338- 8164 Jun, Scoliosis (and kyphoscoliosis), idiopathic M41.20 and Other chronic pain G89.29 [facility] [id number] [place] [address] 22301 -9427 Jun, Upper respiratory tract infection, unspecified type 465.9 and Rhinorrhea J34.89 [facility] [id number] [place] [address] 07635- 6117 May, [facility] [id number] [place] [address] 44963- 5951 May, [facility] [id number] [place] [address] 72013- 3916 Apr, Dysuria R30.0 ; Urinary tract infection, site not specified N39.0 and Hematuria, unspecified R31.9 [facility] [id number] [place] [address] 48109- 3004 Apr, [facility] [id number] [place] [address] 71757- 1924 Mar, Family history of early CAD Z82.49 [facility] [id number] [place] [address] 19768- 4645 Mar, Other chronic pain G89.29 [facility] [address] 28087- 4238 Mar, Impingement syndrome of both shoulders M75.41 [facility] [id number] [place] [address] 83907- 5096 Mar, Other chronic pain G89.29 ; Dysthymia F34.1 ; Family history of early CAD Z82.49 ; Dysuria R30.0 and Other specified disorders of Eustachian tube, right ear H69.81 [facility] [id number] [place] [address] 94876- 4795 Mar, [facility] [address] 32649- 0984 Feb, [facility] [address] 86415- 6157 Jan, [facility] [address] 71115- 5869 Jan, Eustachian tube dysfunction 381.81 and Dysthymia 300.4 [facility] [id number] [place] [address] 27465- 7996 Dec, [facility] [id number] [place] [address] 91061- 2735 Nov, Impingement syndrome of both shoulders 726.2 [facility] [id number] [place] [address] 70250- 5105 Nov, [facility] [address] 33411- 1464 Nov, [facility] [id number] [place] [address] 33580- 8870 Nov, Urgency of urination 788.63 [facility] [address] [place] [address]- 5618 October, [facility] [place] [facility] [address] [id number] [place] [address]- 4276 October, [facility] [place] [facility] [address] [id number] [place] [address]- 3782 Sep, [facility] [place] [facility] [address] [id number] [place] [address]- 6610 Sep, [facility] [place] [facility] [address] [id number] [place] [address]- 8677 Aug, [facility] [place] [facility] [address] [id number] [place] [address]- 7966 Aug, [facility] [place] [facility] [address] [id number] [place] [address]- 1354 Aug, [facility] [place] [facility] [address] [id number] [place] [address]- 9337 Aug, [facility] [place] [facility] [address] [id number] [place] [address]- 5979 Aug, [facility] [place] [facility] [address] [id number] [place] [address]- 7974 Aug, [facility] [place] [facility] [address] [facility] [id number] [place] [address]- 6280 Aug, [facility] [place] [facility] [address] [id number] [place] [address]- 4121 Jul, [facility] [place] [facility] [address] [id number] [place] [address]- 1001 Jul, [facility] [place] [facility] [address] [id number] [place] [address]- 9368 Jul, [facility] [place] [facility] [address] [facility] [id number] [place] [address]- 7099 Jul, [facility] [place] [facility] [address] [facility] [id number] [place] [address]- 9756 Jul, [facility] [place] [facility] [address] [id number] [place] [address]- 9148 Jul, [facility] [place] [facility] [address] [id number] [place] [address]- 4546 Jun, [facility] [place] [facility] [address] [id number] [place] [address]- 1431 Jun, [facility] [place] [facility] [address] [id number] [place] [address]- 3996 May, [facility] [place] [facility] [address] [id number] [place] [address]- 4444 May, [facility] [place] [facility] [address] [id number] [place] [address]- 3647 May, [facility] [place] [facility] [address] [id number] [place] [address]- 8275 May, [facility] [place] [facility] [address] [id number] [place] [address]- 9329 Mar, [facility] [place] [facility] [address] [id number] [place] [address]- 4476 Mar, [facility] [place] [facility] [address] [id number] [place] [address]- 1736 Feb, [facility] [place] [facility] [address] [id number] [place] [address]- 2587 Feb, [facility] [place] [facility] [address] [id number] [place] [address]- 3759 Jan, [facility] [place] [facility] [address] [id number] [place] [address]- 8156 Jan, [facility] [place] [facility] [address] [id number] [place] [address]- 1741 Jan, [facility] [place] [facility] [address] [id number] [place] [address]- 9401 Jan, [facility] [place] [facility] [address] [id number] [place] [address]- 3704 Jan, [facility] [place] [facility] [address] [id number] [place] [address]- 3494 Nov, [facility] [place] [facility] [address] [id number] [place] [address]- 8972 Nov, [facility] [place] [facility] [address] [id number] [place] [address]- 4340 October, [facility] [place] [facility] [address] [id number] [place] [address]- 7292 October, [facility] [place] [facility] [address] [id number] [place] [address]- 2491 October, [facility] [place] [facility] [address] [id number] [place] [address]- 8221 October, [facility] [place] [facility] [address] [id number] [place] [address]- 1493 Sep, [facility] [place] [facility] [address] [id number] [place] [address]- 6021 Aug, [facility] [place] [facility] [address] [id number] [place] [address]- 5969 Aug, [facility] [place] [facility] [address] [id number] [place] [address]- 0861 Aug, [facility] [place] [facility] [address] [id number] [place] [address]- 0612 Aug, [facility] [place] [facility] [address] [id number] [place] [address]- 5160 Jul, [facility] [place] [facility] [address] [id number] [place] [address]- 5557 Jul, [facility] [place] [facility] [address] [id number] [place] [address]- 0306 Jun, [facility] [place] [facility] [address] [id number] [place] [address]- 3019 Jun, [facility] [place] [facility] [address] [id number] [place] [address]- 7966 Jun, [facility] [place] [facility] [address] [id number] [place] [address]- 0313 Jun, [facility] [place] [facility] [address] [id number] [place] [address]- 1213 Jun, [facility] [place] [facility] [address] [id number] [place] [address]- 8591 Jun, [facility] [place] [facility] [address] [id number] [place] [address]- 2114 Mar, [facility] [place] [facility] [address] [id number] [place] [address]- 9138 Mar, [facility] [place] [facility] [address] [id number] [place] [address]- 2340 Feb, [facility] [place] [facility] [address] [id number] [place] [address]- 2073 Feb, [facility] [place] [facility] [address] [id number] [place] [address]- 0544 Feb, [facility] [place] [facility] [address] [id number] [place] [address]- 9628 Jan, [facility] [place] [facility] [address] [id number] [place] [address]- [address] Jan, [facility] [place] [facility] [address] [id number] [place] [address] Dec, [facility] [place] [facility] [address] [id number] [place] [address] Nov, [facility] [place] [facility] [address] [id number] [place] [address] Sep, [facility] [place] [facility] [address] [id number] [place] [address] Aug, [facility] [place] [facility] [address] [id number] [place] [address] Aug, [facility] [address] [id number] [place] [address] Aug, [facility] [place] [facility] [address] [id number] [place] [address] Jul, [facility] [address] [id number] [place] [address] Jul, [facility] [place] [facility] [address] [id number] [place] [address] Jul, [facility] [address] [id number] [place] [address] Jul, [facility] [address] [id number] [place] [address] Jul, [facility] [address] [facility] [id number] [place] [address] Apr, [facility] [address] [id number] [place] [address] Apr, [facility] [address] [facility] [id number] [place] [address] Jan, [facility] [address] [facility] [id number] [place] [address] Jan, [facility] [address] [facility] [id number] [place] [address] Dec, [facility] [place] [facility] [address] [id number] [place] [address] Dec, [facility] [place] [facility] [address] [id number] [place] [address] Dec, [facility] [place] [facility] [address] [facility] [id number] [place] [address] Dec, [facility] [place] [facility] [address] [facility] [id number] [place] [address] Dec, [facility] [place] [facility] [id number] [address] October, [facility] [id number] [address] Aug, [facility] [id number] [address] Aug, [facility] [id number] [address] Aug, [facility] [id number] [address] Jul, [facility] [id number] [place] [address] May, [facility] [id number] [address] Apr, [facility] [id number] [address] May, [facility] [id number] [address] May, [facility] [id number] [address] May, [facility] [id number] [address] Mar, [facility] [id number] [address] Mar, [facility] [id number] [address] Aug, IMMUNIZATIONS No Known Immunizations SOCIAL HISTORY Never Assessed REASON FOR VISIT Lab (walk-in)--Formerly [facility] PLAN OF CARE VITAL SIGNS MEDICATIONS Unknown Medications RESULTS No Results PROCEDURES Procedure Date Ordered Result Body Site URINALYSIS, AUTO, W/O SCOPE Feb 21, 2017 URINE CULTURE/COLONY COUNT Feb 21, 2017 INSTRUCTIONS MEDICATIONS ADMINISTERED No Known Medications MEDICAL (GENERAL) HISTORY Type Description Date Medical History chronic pain Medical History arthritis Surgical History Nephrectomy - age 3 Surgical History Appendectomy Hospitalization History surgery Hospitalization History childbirth x 3
--- OUTSIDE RECORDS SUMMARY | 2018-06-07 13:31 | XMS REPORT ---
Author Author CHUY NGUYEN [facility] Address [address] [place] [address] Care Team Providers Care Marketing Operations Consultant Name Role Phone CHUY NGUYEN Unavailable PROBLEMS Type Condition ICD9-CM Code HNX03-JY Code Onset Dates Condition Status SNOMED Code Problem Scoliosis (and kyphoscoliosis), idiopathic M41.20 Active 77453045 Problem Myalgia M79.1 Active 19300928 Problem Other chronic pain G89.29 Active 38227961 Problem Urinary urgency R39.15 Active 55909090 Problem Dysthymia F34.1 Active 93736926 Problem Varicose veins I86.8 Active 803625432 Problem Need for prophylaxis against urinary tract infection Z29.8 Active 660259555 Problem Abnormal mammogram of left breast R92.8 Active 566093704 Problem Scoliosis, unspecified scoliosis type, unspecified spinal region M41.9 Active 587819381 Problem Arthralgia M25.50 Active 56239612 Problem Calculus of gallbladder without cholecystitis without obstruction K80.20 Active 610960959 Problem Major depressive disorder, single episode, unspecified F32.9 Active 32662597 ALLERGIES No Information ENCOUNTERS Encounter Location Date Diagnosis [place] [id number] [place] [address] 20231- 7502 30 Aug, 2017 Other chronic pain G89.29 [facility] [place] [id number] [place] [address] 52578- 0378 29 Aug, 2017 Scoliosis (and kyphoscoliosis), idiopathic M41.20 [facility] [place] [id number] [place] [address] 75342- 5766 Aug, [facility] [place] [id number] [place] [address] 70798- 0132 12 Aug, 2017 Dysuria R30.0 ; Scoliosis, unspecified scoliosis type, unspecified spinal region M41.9 ; Encounter for therapeutic drug level monitoring Z51.81 and Alcohol use Z78.9 [facility] [place] [id number] [place] [address] 52826- 6538 Aug, Other chronic pain G89.29 [facility] [place] [id number] [place] [address] 17770- 9390 Jul, Chronic urinary tract infection N39.0 [facility] [place] [id number] [place] [address] 15065- 5946 Jul, Other chronic pain G89.29 [place] [id number] [place] [address] 71950- 6637 Jun, [facility] [place] [id number] [place] [address] 32748- 4183 Jun, [place] [address] [id number] [place] [address] 56538- 6533 Jun, Acute left-sided thoracic back pain M54.6 [facility] [id number] [place] [address] 49707 -7366 18 Jun, 2017 Cough R05 and Acute bilateral thoracic back pain M54.6 [facility] [id number] [place] [address] 95532 -6933 15 Jun, 2017 Back pain, unspecified back location, unspecified back pain laterality, unspecified chronicity M54.9 and Left flank pain R10.9 [facility] [place] [id number] [place] [address] 44361- 5277 Jun, Other chronic pain G89.29 [facility] [place] [id number] [place] [address] 31446- 7774 Jun, Myalgia M79.1 [facility] [place] [id number] [place] [address] 14499- 7072 May, Other chronic pain G89.29 [facility] [place] [id number] [place] [address] 14073- 5880 May, Myalgia M79.1 and Fatigue due to exposure, subsequent encounter T73.2XXD [place] [id number] [place] [address] 04504- 1087 05 May, 2017 Fatigue due to exposure, subsequent encounter T73.2XXD [place] [id number] [place] [address] 16997- 8396 15 Apr, 2017 Other chronic pain G89.29 and Myalgia M79.1 [place] [address] 33571- 5621 08 Apr, 2017 Closed nondisplaced fracture of phalanx of left great toe with routine healing, unspecified phalanx, subsequent encounter S92.405D ; Dysuria R30.0 ; Localized edema R60.0 and Arthralgia M25.50 [place] [address] 76314- 0831 Mar, Other chronic pain G89.29 and Myalgia M79.1 [place] [address] [id number] [place] [address] 36967- 0931 Mar, [place] [address] [id number] [place] [address] 37231- 3417 Mar, Dysuria R30.0 ; Other chronic pain G89.29 ; Scoliosis, unspecified scoliosis type, unspecified spinal region M41.9 and Chronic urinary tract infection N39.0 [place] [address] [id number] [place] [address] 49677- 4417 Feb, Arthralgia M25.50 and Myalgia M79.1 [place] [address] 96773- 1708 13 Feb, 2017 [place] [address] [address] [id number] [place] [address] 67356- 8466 Feb, [place] [address] [id number] [place] [address] 59759- 0463 Feb, Closed compression fracture of L4 lumbar vertebra with routine healing, subsequent encounter S32.040D ; Closed nondisplaced fracture of phalanx of left great toe with routine healing, unspecified phalanx, subsequent encounter S92.405D and Chronic urinary tract infection N39.0 [facility] [place] [id number] [place] [address] 80371- 0722 Jan, Closed compression fracture of fourth lumbar vertebra, initial encounter S32.040A [facility] [place] [id number] [place] [address] 97989- 2581 Jan, Urinary tract infection, site not specified N39.0 [place] [address] [id number] [place] [address] 15659- 6960 Jan, [place] [address] [place] [address] [id number] [place] [address] 15774- 7235 Jan, [place] [address] [id number] [place] [address] 00306- 7078 Jan, Arthralgia M25.50 and Myalgia M79.1 [place] [address] [id number] [place] [address] 99826- 1885 Jan, Need for prophylaxis against urinary tract infection Z29.8 and Urinary tract infection, site not specified N39.0 [place] [id number] [place] [address] 81151- 1468 Dec, Urinary tract infection, site not specified N39.0 and Need for prophylaxis against urinary tract infection Z29.8 [facility] [place] [id number] [place] [address] 35220- 5633 Dec, Major depressive disorder, single episode, unspecified F32.9 ; Myalgia M79.1 ; Arthralgia M25.50 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 [facility] [place] [id number] [place] [address] 09445- 9172 Dec, Other chronic pain G89.29 and Dysuria R30.0 [place] [address] [id number] [place] [address] 26160- 5628 Nov, 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 [facility] [place] [id number] [place] [address] 09749- 3015 Nov, Acute midline low back pain without sciatica M54.5 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 [facility] [place] [id number] [place] [address] 16056- 3375 Nov, [facility] [place] [id number] [place] [address] 31236- 9622 October, [facility] [place] [id number] [place] [address] 76151- 9207 October, [facility] [place] [id number] [place] [address] 31070- 7886 Sep, Right leg pain M79.604 [facility] [place] [address] [id number] [place] [address] 08827- 0949 Sep, [facility] [place] [id number] [place] [address] 31991- 2479 Aug, Right leg pain M79.604 [facility] [place] [id number] [place] [address] 69944- 3675 Jul, [facility] [place] [id number] [place] [address] 03694- 8563 Jul, Arthralgia M25.50 and Right leg pain M79.604 [facility] [place] [id number] [place] [address] 89092- 4158 Jun, Arthralgia M25.50 [facility] [place] [id number] [place] [address] 84000- 4356 Jun, [facility] [place] [id number] [place] [address] 65238- 7051 Jun, Right leg pain M79.604 [place] [address] [id number] [place] [address] 55257- 0192 Jun, Right leg pain M79.[address] 83489- 8922 Jun, Abnormal mammogram of left breast R92.[address] 99456- 9370 May, Routine gynecological examination V72.31 ; Breast cancer screening Z12.39 ; Cervical cancer screening Z12.4 ; Colon cancer screening Z12.11 and Calculus of gallbladder without cholecystitis without obstruction K80.[address] 13501- 4678 May, Arthralgia M25.[address] 93149- 4178 Apr, Arthralgia M25.[address] 09514- 9451 Apr, Screening, lipid Z13.[address] 68141- 4242 14 Apr, 2016 Other chronic pain G89.29 ; Scoliosis, unspecified scoliosis type, unspecified spinal region M41.9 ; Right leg pain M79.604 ; Major depressive disorder, single episode, unspecified F32.9 ; Fatigue due to exposure, subsequent encounter T73.2XXD ; Dysthymia F34.1 and Screening, lipid Z13.220 [place] [id number] [place] [address] 22882- 6142 Apr, Arthralgia M25.[address] 88788- 3059 Mar, Dysthymia [address] 44220- 2596 Mar, Arthralgia M25.[address] [place] [id number] [address]- 6539 Feb, Arthralgia M25.50 [facility] [place] [id number] [place] [address] 85846- 0307 Jan, Arthralgia M25.50 [facility] [place] [id number] [place] [address] 39297- 3206 Dec, 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 [facility] [place] [id number] [place] [address] 40323- 3471 Dec, [facility] [place] [id number] [place] [address] 39984- 4955 Dec, Right leg pain M79.604 and Scoliosis, unspecified scoliosis type, unspecified spinal region M41.9 [facility] [place] [id number] [place] [address] 06465- 2474 Dec, Right leg pain M79.604 and Scoliosis, unspecified scoliosis type, unspecified spinal region M41.9 [facility] [place] [address] [id number] [place] [address] 82477- 0210 Dec, Arthralgia M25.50 [facility] [place] [id number] [place] [address] 40919- 6286 Nov, Arthralgia M25.50 [facility] [place] [id number] [place] [address] 88949- 1390 October, Arthralgia M25.50 and Scoliosis, unspecified scoliosis type , unspecified spinal region M41.9 [facility] [place] [id number] [place] [address] 69348- 8649 Sep, [facility] [place] [id number] [place] [address] 48128- 9469 Aug, [facility] [place] [id number] [place] [address] 10800- 4589 Aug, Arthralgia M25.50 ; Myalgia M79.1 and Scoliosis M41.9 [facility] [place] [id number] [place] [address] 66295- 8138 Jul, Other chronic pain G89.29 [facility] [place] [id number] [place] [address] 62919- 1939 Jul, Other chronic pain G89.29 [facility] [place] [address] 64322- 1272 Jul, Impingement syndrome of both shoulders M75.41 [facility] [place] [id number] [place] [address] 51245- 2631 Jun, [facility] [place] [id number] [place] [address] 38962- 3600 Jun, [facility] [place] [id number] [place] [address] 82012- 6201 Jun, Scoliosis (and kyphoscoliosis), idiopathic M41.20 and Other chronic pain G89.29 [facility] [id number] [place] [address] 54666 -5809 Jun, Upper respiratory tract infection, unspecified type 465.9 and Rhinorrhea J34.89 [facility] [place] [id number] [place] [address] 06431- 5528 May, [facility] [place] [id number] [place] [address] 50778- 1396 May, [facility] [place] [id number] [place] [address] 61451- 8030 Apr, Dysuria R30.0 ; Urinary tract infection, site not specified N39.0 and Hematuria, unspecified R31.9 [facility] [place] [id number] [place] [address] 28832- 0455 Apr, [facility] [place] [id number] [place] [address] 09757- 4886 Mar, Family history of early CAD Z82.49 [facility] [place] [id number] [place] [address] 44621- 6766 Mar, Other chronic pain G89.29 [facility] [place] [address] 08538- 0768 Mar, Impingement syndrome of both shoulders M75.41 [facility] [place] [id number] [place] [address] 48780- 9506 Mar, Other chronic pain G89.29 ; Dysthymia F34.1 ; Family history of early CAD Z82.49 ; Dysuria R30.0 and Other specified disorders of Eustachian tube, right ear H69.81 [facility] [place] [id number] [place] [address] 22087- 4455 Mar, [facility] [place] [address] 14462- 7863 Feb, [facility] [place] [address] 86633- 2671 Jan, [facility] [place] [address] 25332- 2892 Jan, Eustachian tube dysfunction 381.81 and Dysthymia 300.4 [facility] [place] [id number] [place] [address] 56835- 0428 Dec, [facility] [place] [id number] [place] [address] 15243- 0227 Nov, Impingement syndrome of both shoulders 726.2 [facility] [place] [id number] [place] [address] 06669- 5258 Nov, [facility] [place] [address] 66783- 1804 Nov, [facility] [place] [id number] [place] [address] 41843- 9791 Nov, Urgency of urination 788.63 [facility] [place] [address] [place] [address]- 3051 October, [facility] [place] [facility] [address] [id number] [place] [address]- 0953 October, [facility] [place] [facility] [address] [id number] [place] [address]- 5738 Sep, [facility] [place] [facility] [address] [id number] [place] [address]- 9101 Sep, [facility] [place] [facility] [address] [id number] [place] [address]- 0946 Aug, [facility] [place] [facility] [address] [id number] [place] [address]- 6773 Aug, [facility] [place] [facility] [address] [id number] [place] [address]- 9168 Aug, [facility] [place] [facility] [address] [id number] [place] [address]- 2395 Aug, [facility] [place] [facility] [address] [id number] [place] [address]- 8046 Aug, [facility] [place] [facility] [address] [id number] [place] [address]- 3426 Aug, [facility] [place] [facility] [address] [facility] [id number] [place] [address]- 0779 Aug, [facility] [place] [facility] [address] [id number] [place] [address]- 6495 Jul, [facility] [place] [facility] [address] [id number] [place] [address]- 0336 Jul, [facility] [place] [facility] [address] [id number] [place] [address]- 1785 Jul, [facility] [place] [facility] [address] [facility] [id number] [place] [address]- 6254 Jul, [facility] [place] [facility] [address] [facility] [id number] [place] [address]- 7542 Jul, [facility] [place] [facility] [address] [id number] [place] [address]- 0414 Jul, [facility] [place] [facility] [address] [id number] [place] [address]- 6113 Jun, [facility] [place] [facility] [address] [id number] [place] [address]- 3515 Jun, [facility] [place] [facility] [address] [id number] [place] [address]- 2737 May, [facility] [place] [facility] [address] [id number] [place] [address]- 7082 May, [facility] [place] [facility] [address] [id number] [place] [address]- 2902 May, [facility] [place] [facility] [address] [id number] [place] [address]- 0833 May, [facility] [place] [facility] [address] [id number] [place] [address]- 3155 Mar, [facility] [place] [facility] [address] [id number] [place] [address]- 7632 Mar, [facility] [place] [facility] [address] [id number] [place] [address]- 2496 Feb, [facility] [place] [facility] [address] [id number] [place] [address]- 5647 Feb, [facility] [place] [facility] [address] [id number] [place] [address]- 8174 Jan, [facility] [place] [facility] [address] [id number] [place] [address]- 8711 Jan, [facility] [place] [facility] [address] [id number] [place] [address]- 9462 Jan, [facility] [place] [facility] [address] [id number] [place] [address]- 7356 Jan, [facility] [place] [facility] [address] [id number] [place] [address]- 7932 Jan, [facility] [place] [facility] [address] [id number] [place] [address]- 4617 Nov, [facility] [place] [facility] [address] [id number] [place] [address]- 5093 Nov, [facility] [place] [facility] [address] [id number] [place] [address]- 9287 October, [facility] [place] [facility] [address] [id number] [place] [address]- 3567 October, [facility] [place] [facility] [address] [id number] [place] [address]- 1134 October, [facility] [place] [facility] [address] [id number] [place] [address]- 6429 October, [facility] [place] [facility] [address] [id number] [place] [address]- 9439 Sep, [facility] [place] [facility] [address] [id number] [place] [address]- 3967 Aug, [facility] [place] [facility] [address] [id number] [place] [address]- 3061 Aug, [facility] [place] [facility] [address] [id number] [place] [address]- 9505 Aug, [facility] [place] [facility] [address] [id number] [place] [address]- 1104 Aug, [facility] [place] [facility] [address] [id number] [place] [address] Jul, [facility] [place] [facility] [address] [id number] [place] [address] Jul, [facility] [place] [facility] [address] [id number] [place] [address] Jun, [facility] [place] [facility] [address] [id number] [place] [address] Jun, [facility] [place] [facility] [address] [id number] [place] [address] Jun, [facility] [place] [facility] [address] [id number] [place] [address] Jun, [facility] [place] [facility] [address] [id number] [place] [address] Jun, [facility] [place] [facility] [address] [id number] [place] [address] Jun, [facility] [place] [facility] [address] [id number] [place] [address] Mar, [facility] [place] [facility] [address] [id number] [place] [address] Mar, [facility] [place] [facility] [address] [id number] [place] [address] Feb, [facility] [place] [facility] [address] [id number] [place] [address] Feb, [facility] [place] [facility] [address] [id number] [place] [address] Feb, [facility] [place] [facility] [address] [id number] [place] [address] Jan, [facility] [place] [facility] [address] [id number] [place] [address] Jan, [facility] [place] [facility] [address] [id number] [place] [address] Dec, [facility] [place] [facility] [address] [id number] [place] [address] Nov, [facility] [place] [facility] [address] [id number] [place] [address] Sep, [facility] [place] [facility] [address] [id number] [place] [address] Aug, [facility] [place] [facility] [address] [id number] [place] [address] Aug, [facility] [address] [id number] [place] [address] Aug, [facility] [place] [facility] [address] [id number] [place] [address] Jul, [facility] [address] [id number] [place] [address] Jul, [facility] [place] [facility] [address] [id number] [place] [address] Jul, [facility] [address] [id number] [place] [address] Jul, [facility] [address] [id number] [place] [address] Jul, [facility] [address] [facility] [id number] [place] [address] Apr, [facility] [address] [id number] [place] [address] Apr, [facility] [address] [facility] [id number] [place] [address] Jan, [facility] [address] [facility] [id number] [place] [address] Jan, [facility] [address] [facility] [id number] [place] [address] Dec, [facility] [place] [facility] [address] [id number] [place] [address] Dec[facility] [place] [facility] [address] [address] [id number] [place] [address] Dec, [facility] [place] [facility] [address] [facility] [id number] [place] [address] Dec, [facility] [place] [facility] [address] [facility] [id number] [place] [address] Dec, [facility] [place] [facility] [id number], [place] [address] October, [facility] [place] [id number], [place] [address] Aug, [facility], [place], [facility] [address] [facility] [id number], [place] [address] Aug, [facility], [place], [facility] [id number], [place] [address] Aug, [facility], [place], [facility] [address] [facility] [id number], [place] [address] Jul, [facility], [place], [facility] [id number], [place] [address] May, [facility], [place], [facility] [id number], [place] [address] Apr, [facility], [place], [facility] [id number], [place] [address] May, [facility], [place], [facility] [id number], [place] [address] May, [facility], [place], [facility] [id number], [place] [address] May, [facility], [place], [facility] [id number], [place] [address] Mar, [facility], [place], [facility] [id number], [place] [address] Mar, [facility], [place], [facility] [id number], [place] [address] Aug, IMMUNIZATIONS No Known Immunizations SOCIAL HISTORY Never Assessed REASON FOR VISIT Order request PLAN OF CARE VITAL SIGNS MEDICATIONS Unknown Medications RESULTS No Results PROCEDURES No Known procedures INSTRUCTIONS MEDICATIONS ADMINISTERED No Known Medications MEDICAL (GENERAL) HISTORY Type Description Date Medical History chronic pain Medical History arthritis Surgical History Nephrectomy - age 3 Surgical History Appendectomy Hospitalization History surgery Hospitalization History childbirth x 3
--- OUTSIDE RECORDS SUMMARY | 2018-06-07 13:32 | XMS REPORT ---
Author Author CHUY NGUYEN Organization [facility] Address [address] [place] [address] Care Team Providers Care Pharmacist Per Diem Name Role Phone CHUY NGUYEN Unavailable PROBLEMS Type Condition ICD9-CM Code [id number] Code Onset Dates Condition Status SNOMED Code Problem Scoliosis (and kyphoscoliosis), idiopathic M41.20 Active 76125210 Problem Myalgia M79.1 Active 78455210 Problem Other chronic pain G89.29 Active 58810262 Problem Urinary urgency R39.15 Active 34412583 Problem Dysthymia F34.1 Active 36193052 Problem Varicose veins I86.8 Active 298751931 Problem Need for prophylaxis against urinary tract infection Z29.8 Active 839715330 Problem Abnormal mammogram of left breast R92.8 Active 637465172 Problem Scoliosis, unspecified scoliosis type, unspecified spinal region M41.9 Active 874757688 Problem Arthralgia M25.50 Active 39248639 Problem Calculus of gallbladder without cholecystitis without obstruction K80.20 Active 586167597 Problem Major depressive disorder, single episode, unspecified F32.9 Active 79537210 ALLERGIES No Information ENCOUNTERS Encounter Location Date Diagnosis [facility] [id number] [place] [address] 87017- 6923 October, Other chronic pain G89.29 and Myalgia M79.1 [facility] [id number] [address] 5[address] Sep, Other chronic pain G89.29 [facility] [id number] [place] [address] 78965- 0938 Aug, Other chronic pain G89.29 [facility] [id number] [place] [address] 05799- 9478 Aug, Scoliosis (and kyphoscoliosis), idiopathic M41.20 [facility] [id number] [address] Aug, [facility] [place] [id number] [place] [address] 28599- 3045 12 Aug, 2017 Dysuria R30.0 ; Scoliosis, unspecified scoliosis type, unspecified spinal region M41.9 ; Encounter for therapeutic drug level monitoring Z51.81 and Alcohol use Z78.9 [place] [id number] [place] [address] 27447- 5038 07 Aug, 2017 Other chronic pain G89.29 [facility] [facility] [id number] [place] [address] 57762- 8315 23 Jul, 2017 Chronic urinary tract infection N39.0 [facility] [facility] [id number] [place] [address] 60202- 4127 07 Jul, 2017 Other chronic pain G89.29 [facility] [id number] [place] [address] 04316- 4512 Jun, [place] [id number] [place] [address] 69277- 1731 Jun, [place] [id number] [place] [address] 56553- 1825 Jun, Acute left-sided thoracic back pain M54.6 [facility] [id number] [place] [address] 32414 -0434 18 Jun, 2017 Cough R05 and Acute bilateral thoracic back pain M54.6 [facility] [id number] [place] [address] 55838 -9358 15 Jun, 2017 Back pain, unspecified back location, unspecified back pain laterality, unspecified chronicity M54.9 and Left flank pain R10.9 [place] [id number] [place] [address] 72177- 4867 Jun, Other chronic pain G89.29 [facility] [facility] [id number] [place] [address]- 1104 Jun, Myalgia M79.1 [place] [id number] [place] [address] 04451- 3365 May, Other chronic pain G89.29 [facility] [id number] [place] [address] 29253- 3337 May, Myalgia M79.1 and Fatigue due to exposure, subsequent encounter T73.2XXD [place] [id number] [place] [address] 86411- 9396 05 May, 2017 Fatigue due to exposure, subsequent encounter T73.2XXD [place] [address] 09757- 4694 15 Apr, 2017 Other chronic pain G89.29 and Myalgia M79.1 [place] [address] 24433- 2830 08 Apr, 2017 Closed nondisplaced fracture of phalanx of left great toe with routine healing, unspecified phalanx, subsequent encounter S92.405D ; Dysuria R30.0 ; Localized edema R60.0 and Arthralgia M25.50 [place] [id number] [place] [address] 22810- 4511 Mar, Other chronic pain G89.29 and Myalgia M79.1 [place] [id number] [place] [address] 81482- 7038 Mar, [place] [id number] [place] [address] 04670- 5861 Mar, Dysuria R30.0 ; Other chronic pain G89.29 ; Scoliosis, unspecified scoliosis type, unspecified spinal region M41.9 and Chronic urinary tract infection N39.0 [place] [id number] [place] [address] 39562- 0161 Feb, Arthralgia M25.50 and Myalgia M79.1 [place] [address] [address] 6119 Feb, [facility] [address] [address]- 9635 Feb, [facility] [address] [address]- 5165 Feb, Closed compression fracture of L4 lumbar vertebra with routine healing, subsequent encounter S32.040D ; Closed nondisplaced fracture of phalanx of left great toe with routine healing, unspecified phalanx, subsequent encounter S92.405D and Chronic urinary tract infection N39.0 [facility] [address] [place] [address] 27557- 4042 Jan, Closed compression fracture of fourth lumbar vertebra, initial encounter S32.040A [place] [address], [place] [address]- 8657 Jan, Urinary tract infection, site not specified N39.0 [facility] [address] [address] 1850 Jan, [facility] [address] [place] [address] 35811- 3505 Jan, [facility] [address] [address]- 3806 Jan, Arthralgia M25.50 and Myalgia M79.1 [facility] [address], [place] [address]- 4905 Jan, Need for prophylaxis against urinary tract infection Z29.8 and Urinary tract infection, site not specified N39.0 [facility] [address] [address]- 3093 Dec, Urinary tract infection, site not specified N39.0 and Need for prophylaxis against urinary tract infection Z29.8 [facility] [address] [address]- 9069 Dec, Major depressive disorder, single episode, unspecified F32.9 ; Myalgia M79.1 ; Arthralgia M25.50 and detention 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 Z79.891 [facility] [id number] [place] [address] 72512- 7279 Dec, Other chronic pain G89.29 and Dysuria R30.0 [facility] [address] 04715- 8718 Nov, intermediate frame tender 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 Z79.891 [facility] [id number] [place] [address] 01508- 3190 Nov, Acute midline low back pain without sciatica M54.5 and intermediate frame tender 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 Z79.891 [place] [id number] [place] [address] 75771- 9781 Nov, [place] [address] 04340- 0321 October, [facility] [address] 13875- 7637 October, [place] [address] 34722- 6112 Sep, Right leg pain M79.604 [place] [id number] [place] [address] 61689- 9296 Sep, [facility] [id number] [place] [address] 40416- 2969 Aug, Right leg pain M79.604 [facility] [address] 22431- 2196 Jul, [place] [address] 63099- 7379 Jul, Arthralgia M25.50 and Right leg pain M79.604 [place] [address] 80451- 9143 Jun, Arthralgia M25.50 [place] [address] [place] [address] 83296- 2130 Jun, [place] [id number] [place] [address] 30271- 0375 Jun, Right leg pain M79.604 [place] [id number] [place] [address] 25953- 8247 Jun, Right leg pain M79.604 [place] [id number] [place] [address] 05644- 4741 Jun, Abnormal mammogram of left breast R92.[address] 50451- 6599 May, Routine gynecological examination V72.31 ; Breast cancer screening Z12.39 ; Cervical cancer screening Z12.4 ; Colon cancer screening Z12.11 and Calculus of gallbladder without cholecystitis without obstruction K80.20 [place] [id number] [place] [address] 85131- 9768 May, Arthralgia M25.[address] 04402- 1134 Apr, Arthralgia M25.50 [id number] [place] [address] 66155- 0168 Apr, Screening, lipid Z13.220 [id number] [place] [address] 22602- 1352 14 Apr, 2016 Other chronic pain G89.29 ; Scoliosis, unspecified scoliosis type, unspecified spinal region M41.9 ; Right leg pain M79.604 ; Major depressive disorder, single episode, unspecified F32.9 ; Fatigue due to exposure, subsequent encounter T73.2XXD ; Dysthymia F34.1 and Screening, lipid Z13.220 [id number] [place] [address] 14454- 2115 Apr, Arthralgia M25.50 [facility] [address] [address]- 3847 Mar, Dysthymia 300.4 [facility] [id number] [place] [address] 43919- 0328 Mar, Arthralgia M25.50 [facility] [id number] [place] [address] 63958- 7387 Feb, Arthralgia M25.50 [facility] [id number] [place] [address] 26084- 4825 Jan, Arthralgia M25.50 [facility] [id number] [place] [address] 77858- 3787 Dec, 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 [place] [id number] [place] [address] 13806- 7755 Dec, [facility] [id number] [place] [address] 60501- 0939 Dec, Right leg pain M79.604 and Scoliosis, unspecified scoliosis type, unspecified spinal region M41.9 [place] [id number] [place] [address] 59152- 4070 Dec, Right leg pain M79.604 and Scoliosis, unspecified scoliosis type, unspecified spinal region M41.9 [facility] [id number] [place] [address] 20460- 4407 Dec, Arthralgia M25.50 [facility] [id number] [place] [address] 16485- 8168 Nov, Arthralgia M25.50 [facility] [id number] [place] [address] 28903- 0052 October, Arthralgia M25.50 and Scoliosis, unspecified scoliosis type , unspecified spinal region M41.9 [facility] [id number] [place] [address] 33219- 6283 Sep, [facility] [id number] [place] [address] 54118- 7736 Aug, [place] [id number] [place] [address] 21875- 4853 Aug, Arthralgia M25.50 ; Myalgia M79.1 and Scoliosis M41.9 [place] [id number] [place] [address] 44830- 7988 Jul, Other chronic pain G89.29 [place] [id number] [place] [address] 82541- 0239 Jul, Other chronic pain G89.29 [place] [id number] [place] [address] 91877- 2108 Jul, Impingement syndrome of both shoulders M75.41 [place] [id number] [place] [address] 69082- 8964 Jun, [place] [id number] [place] [address] 06752- 5518 Jun, [place] [id number] [place] [address] 97060- 1922 Jun, Scoliosis (and kyphoscoliosis), idiopathic M41.20 and Other chronic pain G89.29 [facility] [address] [place] [address] 06739 -5028 Jun, Upper respiratory tract infection, unspecified type 465.9 and Rhinorrhea J34.89 [facility] [id number] [place] [address] 49765- 0444 May, [place] [address] 50661- 1446 May, [place] [id number] [place] [address] 81942- 5993 Apr, Dysuria R30.0 ; Urinary tract infection, site not specified N39.0 and Hematuria, unspecified R31.9 [facility] [id number] [place] [address] 88815- 9307 Apr, [facility] [id number] [place] [address] 532395- 7295 Mar, Family history of early CAD Z82.49 [place] [address] 97124- 5353 Mar, Other chronic pain G89.29 [place] [id number] [place] [address] 26369- 8313 Mar, Impingement syndrome of both shoulders M75.41 [place] [id number] [place] [address] 01230- 3873 Mar, Other chronic pain G89.29 ; Dysthymia F34.1 ; Family history of early CAD Z82.49 ; Dysuria R30.0 and Other specified disorders of Eustachian tube, right ear H69.81 [place] [id number] [place] [address] 63413- 2199 Mar, [facility] [id number] [place] [address] 59594- 0100 Feb, [facility] [id number] [place] [address] 66780- 3602 Jan, [facility] [id number] [place] [address] 89471- 9109 Jan, Eustachian tube dysfunction 381.81 and Dysthymia 300.4 [facility] [id number] [place] [address] 76237- 6296 Dec, [facility] [id number] [place] [address] 59746- 1334 Nov, Impingement syndrome of both shoulders 726.2 [facility] [id number] [place] [address] 86226- 6126 Nov, [facility] [address] [id number] [place] [address]- 2651 Nov, [facility] [address] [facility] [id number] [place] [address]- 9460 Nov, Urgency of urination 788.63 [facility] [address] [facility] [id number] [place] [address]- 9086 October, [facility] [address] [id number] [place] [address]- 0636 October, [facility] [address] [id number] [place] [address]- 1003 Sep, [facility] [place] [facility] [address] [facility] [id number] [place] [address]- 4336 Sep, [facility] [id number] [place] [address]- 5602 Aug, [facility] [place] [facility] [address] [id number] [place] [address]- 9667 Aug, [facility] [place] [facility] [address] [id number] [place] [address]- 4486 Aug, [facility] [place] [facility] [address] [facility] [id number] [place] [address]- 5838 Aug, [facility] [place] [facility] [id number] [place] [address]- 9786 Aug, [facility] [place] [facility] [address] [id number] [place] [address] 254 Aug, [facility] [place] [facility] [address] [id number] [place] [address] 2546 Aug, [facility] [place] [facility] [address] [facility] [id number] [place] [address]- 6381 Jul, [facility] [place] [facility] [id number] [place] [address]- 0006 Jul, [facility] [place] [facility] [address] [facility] [id number] [place] [address]- 3990 Jul, 2014 [facility] [place] [facility] [address] [id number] [place] [address]- 8283 Jul, 2014 [facility] [place] [facility] [address] [id number] [place] [address]- 8046 Jul, 2014 [facility] [place] [facility] [address] [id number] [place] [address]- 4656 Jul, 2014 [facility] [place] [facility] [address] [id number] [place] [address]- 6617 Jun, [facility] [place] [facility] [address] [id number] [place] [address]- 6558 Jun, [facility] [place] [facility] [address] [facility] [id number] [place] [address]- 2546 May, [facility] [place] [facility] [address] [id number] [place] [address]- 1260 May, [facility] [place] [facility] [address] [id number] [place] [address]- 9028 May, [facility] [place] [facility] [address] [facility] [id number] [place] [address]- 3352 May, [facility] [place] [facility] [address] [facility] [id number] [place] [address]- 0410 Mar, [facility] [place] [facility] [address] [facility] [id number] [place] [address]- 4435 Mar, [facility] [place] [facility] [address] [id number] [place] [address]- 1986 Feb, [facility] [place] [facility] [address] [id number] [place] 7840 Feb, [facility] [place] [facility] [address] [facility] [id number] [place] [address]- 2740 Jan, [facility] [place] [facility] [address] [facility] [id number] [place] [address]- 0162 Jan, [facility] [place] [facility] [address] [id number] [place] [address]- 3038 Jan, [facility] [place] [facility] [address] [id number] [place] [address]- 7205 Jan, [facility] [place] [facility] [address] [id number] [place] [address]- 7464 Jan, [facility] [place] [facility] [address] [id number] [place] [address]- 8345 Nov, [facility] [place] [facility] [address] [id number] [place] [address]- 9130 Nov, [facility] [place] [facility] [address] [id number] [place] [address]- 2650 October, [facility] [place] [facility] [address] [id number] [place] [address]- 3182 October, [facility] [place] [facility] [address] [id number] [place] [address]- 8462 October, [facility] [place] [facility] [address] [id number] [place] [address]- 2914 October, [facility] [place] [facility] [address] [id number] [place] [address]- 0000 Sep, [facility] [place] [facility] [address] [id number] [place] [address]- 6735 Aug, [facility] [place] [facility] [address] [id number] [place] [address]- 7519 Aug, [facility] [place] [facility] [address] [id number] [place] [address]- 9288 Aug, [facility] [place] [facility] [address] [id number] [place] [address]- 5025 Aug, [facility] [place] [facility] [address] [id number] [place] [address]- 5999 Jul, [facility] [place] [facility] [address] [id number] [place] [address]- 0165 Jul, [facility] [address] [id number] [place] [address]- 7759 Jun, [facility] [place] [facility] [address] [id number] [place] [address]- 4698 Jun, [facility] [place] [facility] [address] [id number] [place] [address]- 2762 Jun, [facility] [place] [facility] [address] [id number] [place] [address]- 5765 Jun, [facility] [place] [facility] [address] [id number] [place] [address]- 9912 Jun, [facility] [place] [facility] [address] [id number] [place] [address]- 2402 Jun, [facility] [address] [id number] [place] [address]- 0538 Mar, [facility] [place] [facility] [address] [id number] [place] [address]- 9696 Mar, [facility] [place] [facility] [address] [id number] [place] [address]- 3122 Feb, [facility] [place] [facility] [address] [id number] [place] [address]- 6306 Feb, [facility] [place] [facility] [address] [id number] [place] [address] 09 Feb, 2013 [facility] [place] [facility] [address] [id number] [place] [address] Jan, [facility] [place] [facility] [address] [id number] [place] [address] 15 Jan, 2013 [facility] [place] [facility] [address] [id number] [place] [address] Dec, [facility] [place] [facility] [address] [id number] [place] [address] Nov, [facility] [place] [facility] [address] [id number] [place] [address] Sep, [facility] [place] [facility] [address] [id number] [place] [address] Aug, [facility] [address] [id number] [place] [address] Aug, [facility] [place] [facility] [address] [id number] [place] [address] Aug, [facility] [address] [id number] [place] [address] Jul, [facility] [place] [facility] [address] [id number] [place] [address] Jul, [facility] [address] [id number] [place] [address] Jul, [facility] [address] [id number] [place] [address] Jul, [facility] [address] [id number] [place] [address] Jul, [facility] [address] [id number] [place] [address] Apr, [facility] [address] [id number] [place] [address] Apr, [facility] [place] [facility] [address] [id number] [place] [address] Jan, [facility] [place] [facility] [address] [id number] [place] [address] Jan, [facility] [place] [facility] [address] [id number] [place] [address] Dec, [facility] [place] [facility] [address] [id number] [place] [address] Dec, [facility] [place] [facility] [address] [facility] [id number] [place] [address] Dec, [facility] [address] [id number] [place] [address] Dec, [facility] [address] [facility] [id number] [place] [address]- [address] Dec, [facility] [address] [facility] [id number] [place] [address] October, [facility] [address] [facility] [id number] [place] [address] Aug, [facility] [address] [facility] [id number] [place] [address] Aug, [facility] [address] [facility] [id number] [place] [address] Aug, [facility] [address] [facility] [id number] [place] [address] Jul, [facility] [address] [facility] [id number] [place] [address] May, [facility] [address] [facility] [id number] [place] [address] Apr, [facility] [address] [facility] [id number] [place] [address] May, [facility] [id number] [place] [address] May, [facility] [address] [facility] [id number] [place] [address] May, [facility] [address] [facility] [id number] [place] [address] Mar, [facility] [address] [facility] [id number] [place] [address] Mar, [facility] [address] [facility] [id number] [address] Aug, IMMUNIZATIONS No Known Immunizations SOCIAL HISTORY Never Assessed REASON FOR VISIT Controlled Med Refill PLAN OF CARE VITAL SIGNS MEDICATIONS Medication Instructions Dosage Frequency Start Date End Date Duration Status Vitamin D3 69888 UNIT Orally once weekly 1 capsule May, [...]
--- OUTSIDE RECORDS SUMMARY | 2018-06-07 13:32 | XMS REPORT ---
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 Phone CHUY NGUYEN Unavailable PROBLEMS Type Condition ICD9-CM Code ALE76-HR Code Onset Dates Condition Status SNOMED Code Problem Scoliosis (and kyphoscoliosis), idiopathic M41.20 Active 12075522 Problem Myalgia M79.1 Active 73390766 Problem Other chronic pain G89.29 Active 79567798 Problem Urinary urgency R39.15 Active 82889071 Problem Dysthymia F34.1 Active 60553985 Problem Varicose veins I86.8 Active 561319464 Problem Need for prophylaxis against urinary tract infection Z29.8 Active 852029662 Problem Abnormal mammogram of left breast R92.8 Active 884181039 Problem Scoliosis, unspecified scoliosis type, unspecified spinal region M41.9 Active 984332975 Problem Arthralgia M25.50 Active 70191179 Problem Calculus of gallbladder without cholecystitis without obstruction K80.20 Active 183394616 Problem Major depressive disorder, single episode, unspecified F32.9 Active 45533561 ALLERGIES No Information ENCOUNTERS Encounter Location Date Diagnosis [place] [id number] [place] [address] 49767- 3333 Sep, Other chronic pain G89.29 [facility] [id number] [place] [address] 65250- 2291 30 Aug, 2017 Other chronic pain G89.29 [place] [id number] [place] [address] 46604- 0715 Aug, Scoliosis (and kyphoscoliosis), idiopathic M41.20 [place] [id number] [place] [address] 54845- 9990 Aug, [place] [id number] [place] [address] 07853- 0420 12 Aug, 2017 Dysuria R30.0 ; Scoliosis, unspecified scoliosis type, unspecified spinal region M41.9 ; Encounter for therapeutic drug level monitoring Z51.81 and Alcohol use Z78.9 [place] [id number] [place] [address] 12949- 8246 07 Aug, 2017 Other chronic pain G89.29 [place] [id number] [place] [address] 79078- 0398 Jul, Chronic urinary tract infection N39.0 [place] [address] 66776- 2560 Jul, Other chronic pain G89.29 [place] [address] [id number] [place] [address] 05759- 1595 Jun, [place] [address] 87667- 6896 Jun, [place] [id number] [place] [address] 58536- 7984 Jun, Acute left-sided thoracic back pain M54.6 [facility] [id number] [place] [address] 95820 -0522 18 Jun, 2017 Cough R05 and Acute bilateral thoracic back pain M54.6 [facility] [id number] [place] [address] 31768 -3557 15 Jun, 2017 Back pain, unspecified back location, unspecified back pain laterality, unspecified chronicity M54.9 and Left flank pain R10.9 [place] [id number] [place] [address] 53504- 3963 Jun, Other chronic pain G89.29 [place] [id number] [place] [address] 73337- 7419 Jun, Myalgia M79.1 [place] [id number] [place] [address] 04261- 3000 May, Other chronic pain G89.29 [place] [id number] [place] [address] 11822- 2701 May, Myalgia M79.1 and Fatigue due to exposure, subsequent encounter T73.2XXD [place] [id number] [place] [address] 48653- 5079 05 May, 2017 Fatigue due to exposure, subsequent encounter T73.2XXD [place] [id number] [place] [address] 04207- 6397 15 Apr, 2017 Other chronic pain G89.29 and Myalgia M79.1 [place] [id number] [place] [address] 77395- 4144 08 Apr, 2017 Closed nondisplaced fracture of phalanx of left great toe with routine healing, unspecified phalanx, subsequent encounter S92.405D ; Dysuria R30.0 ; Localized edema R60.0 and Arthralgia M25.50 [place] [id number] [place] [address] 04380- 3897 Mar, Other chronic pain G89.29 and Myalgia M79.1 [place] [id number] [place] [address] 03037- 4559 Mar, [place] [id number] [place] [address] 69207- 3345 Mar, Dysuria R30.0 ; Other chronic pain G89.29 ; Scoliosis, unspecified scoliosis type, unspecified spinal region M41.9 and Chronic urinary tract infection N39.0 [place] [id number] [place] [address] 05048- 9502 20 Feb, 2017 Arthralgia M25.50 and Myalgia M79.1 [place] [id number] [place] [address] 15373- 4022 13 Feb, 2017 [facility] [id number] [place] [address] 25690- 4874 Feb, [place] [address] [address] 5175 Feb, Closed compression fracture of L4 lumbar vertebra with routine healing, subsequent encounter S32.040D ; Closed nondisplaced fracture of phalanx of left great toe with routine healing, unspecified phalanx, subsequent encounter S92.405D and Chronic urinary tract infection N39.0 [place] [id number] [place] [address] 39859- 3524 Jan, Closed compression fracture of fourth lumbar vertebra, initial encounter S32.040A [place] [address] [id number] [place] [address] 68561- 4626 Jan, Urinary tract infection, site not specified N39.0 [place] [id number] [place] [address] 32590- 0423 Jan, [place] [address] [id number] [place] [address] 64110- 6111 Jan, [place] [address] [place] [address] 44426- 4681 Jan, Arthralgia M25.50 and Myalgia M79.1 [place] [address] [place] [address] 02725- 0457 Jan, Need for prophylaxis against urinary tract infection Z29.8 and Urinary tract infection, site not specified N39.0 [place] [address] [place] [address] 92671- 6497 Dec, Urinary tract infection, site not specified N39.0 and Need for prophylaxis against urinary tract infection Z29.8 [place] [address] [place] [address] 47038- 9089 Dec, Major depressive disorder, single episode, unspecified F32.9 ; Myalgia M79.1 ; Arthralgia M25.50 and group home 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 Z79.891 [place] [address] [place] [address]- 6237 Dec, Other chronic pain G89.29 and Dysuria R30.0 [facility] [address] 09294- 3813 Nov, 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 [facility] [id number] [place] [address] 10167- 3506 Nov, Acute midline low back pain without sciatica M54.5 and 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 [facility] [id number] [place] [address] 95783- 8478 Nov, [facility] [address] 36113- 4961 October, [facility] [address] 30489- 1261 October, [facility] [address] 41969- 1932 Sep, Right leg pain M79.604 [facility] [address] 85284- 2360 Sep, [facility] [id number] [place] [address] 39654- 1891 Aug, Right leg pain M79.604 [facility] [id number] [place] [address] 96882- 4076 Jul, [facility] [id number] [place] [address] 02208- 7314 Jul, Arthralgia M25.50 and Right leg pain M79.604 [facility] [id number] [place] [address] 335997- 3556 Jun, Arthralgia M25.50 [facility] [id number] [place] [address] 70341- 4816 Jun, [place] [address] [id number] [place] [address] 18688- 2190 Jun, Right leg pain M79.604 [place] [address] 89909- 0705 Jun, Right leg pain M79.604 [place] [address] [id number] [place] [address] 14864- 2342 Jun, Abnormal mammogram of left breast R92.[address] 02356- 7268 May, Routine gynecological examination V72.31 ; Breast cancer screening Z12.39 ; Cervical cancer screening Z12.4 ; Colon cancer screening Z12.11 and Calculus of gallbladder without cholecystitis without obstruction K80.20 [place] [id number] [place] [address] 52240- 0518 May, Arthralgia M25.[address] 91866- 9474 Apr, Arthralgia M25.[address] 16753- 7774 Apr, Screening, lipid Z13.220 [place] [id number] [place] [address] 35810- 8764 14 Apr, 2016 Other chronic pain G89.29 ; Scoliosis, unspecified scoliosis type, unspecified spinal region M41.9 ; Right leg pain M79.604 ; Major depressive disorder, single episode, unspecified F32.9 ; Fatigue due to exposure, subsequent encounter T73.2XXD ; Dysthymia F34.1 and Screening, lipid Z13.[address] 08261- 9229 Apr, Arthralgia M25.50 [place] [id number] [place] [address] 27597- 6548 Mar, Dysthymia [address] [address]- 9972 Mar, Arthralgia M25.50 [facility] [id number] [place] [address] 99458- 8976 Feb, Arthralgia M25.50 [facility] [address] [place] [address] 46353- 0811 Jan, Arthralgia M25.50 [facility] [id number] [place] [address] 41209- 9194 Dec, 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 [facility] [address] [id number] [place] [address] 77792- 7623 Dec, [facility] [id number] [place] [address] 61082- 3869 Dec, Right leg pain M79.604 and Scoliosis, unspecified scoliosis type, unspecified spinal region M41.9 [facility] [id number] [place] [address] 79957- 6700 Dec, Right leg pain M79.604 and Scoliosis, unspecified scoliosis type, unspecified spinal region M41.9 [facility] [address] [place] [address] 78589- 2156 Dec, Arthralgia M25.50 [facility] [id number] [place] [address] 54080- 9792 Nov, Arthralgia M25.50 [facility] [id number] [place] [address] 90290- 0119 October, Arthralgia M25.50 and Scoliosis, unspecified scoliosis type , unspecified spinal region M41.9 [facility] [address] [address]- 1778 Sep, [facility] [id number] [place] [address] 95703- 8077 Aug, [facility] [address] [place] [address] 63455- 7329 Aug, Arthralgia M25.50 ; Myalgia M79.1 and Scoliosis M41.9 [facility] [address] [id number] [place] [address] 24222- 7183 Jul, Other chronic pain G89.29 [facility] [id number] [place] [address] 54693- 0781 Jul, Other chronic pain G89.29 [place] [address] [id number] [place] [address] 36556- 3680 Jul, Impingement syndrome of both shoulders M75.41 [place] [address] [address] [id number] [place] [address] 38854- 9853 Jun, [place] [address] 57714- 4063 Jun, [facility] [address] [id number] [place] [address] 26766- 0006 Jun, Scoliosis (and kyphoscoliosis), idiopathic M41.20 and Other chronic pain G89.29 [facility] [id number] [place] [address] 17151 -4064 Jun, Upper respiratory tract infection, unspecified type 465.9 and Rhinorrhea J34.89 [facility] [address] [id number] [place] [address] 88587- 6679 May, [facility] [address] [id number] [place] [address] 69261- 8186 May, [place] [address] 36082- 6169 Apr, Dysuria R30.0 ; Urinary tract infection, site not specified N39.0 and Hematuria, unspecified R31.9 [facility] [address] [id number] [place] [address] 65828- 9166 Apr, [facility] [address] [place] [address] 76015- 6312 Mar, Family history of early CAD Z82.49 [facility] [id number] [place] [address] 37633- 1420 Mar, Other chronic pain G89.29 [facility] [id number] [place] [address] 97217- 7834 Mar, Impingement syndrome of both shoulders M75.41 [facility] [id number] [place] [address] 78306- 2130 Mar, Other chronic pain G89.29 ; Dysthymia F34.1 ; Family history of early CAD Z82.49 ; Dysuria R30.0 and Other specified disorders of Eustachian tube, right ear H69.81 [facility] [id number] [place] [address] 78005- 1018 Mar, [facility] [id number] [place] [address] 54999- 9041 Feb, [facility] [id number] [place] [address] 52166- 1763 Jan, [facility] [id number] [place] [address] 49746- 9569 Jan, Eustachian tube dysfunction 381.81 and Dysthymia 300.4 [facility] [id number] [place] [address] 62770- 8344 Dec, [facility] [id number] [place] [address] 53572- 7737 Nov, Impingement syndrome of both shoulders 726.2 [facility] [id number] [place] [address] 76073- 8774 Nov, [facility] [id number] [place] [address] 88671- 5312 Nov, [facility] [address] [place] [address]- 2339 Nov, Urgency of urination 788.63 [facility] [address] [id number] [place] [address]- 6790 October, [facility] [id number] [place] [address]- 6306 October, [facility] [address] [facility] [id number] [place] [address]- 8850 Sep, [facility] [address] [facility] [id number] [place] [address]- 8319 Sep, [facility] [address] [place] [address]- 3625 Aug, [facility] [id number] [place] [address]- 6345 Aug, [facility] [address] [place] [address]- 0312 Aug, [facility] [address] [facility] [id number] [place] [address]- 3911 Aug, [facility] [address] [place] [address]- 2622 Aug, [facility] [id number] [place] [address]- 2218 Aug, [facility] [address] [place] [id number] [place] [address]- 3662 Aug, [facility] [address] [facility] [id number] [place] [address]- 5232 Jul, [facility] [place] [facility] [address] [place] [id number] 8314 Jul, [facility] [address] [facility] [id number] [place] [address]- 3286 Jul, [facility] [address] [place] [address] [id number] [place] [address]- 8108 Jul, [facility] [place] [facility] [address] [id number] [place] [address]- 1372 Jul, [facility] [place] [facility] [address] [id number] [place] 5907 Jul, [facility] [place] [facility] [address] [id number] [place] [address]- 6040 Jun, [facility] [place] [facility] [address] [id number] [place] [address]- 9284 Jun, [facility] [place] [facility] [address] [id number] [place] [address]- 2796 May, [facility] [place] [facility] [address] [id number] [place] [address]- 7162 May, [facility] [place] [facility] [address] [id number] [place] [address]- 2881 May, [facility] [place] [facility] [address] [id number] [place] [address]- 9560 May, [facility] [place] [facility] [address] [id number] [place] [address]- 5845 Mar, [facility] [place] [facility] [address] [id number] [place] [address]- 1853 Mar, [facility] [place] [facility] [address] [id number] [place] [address]- 8860 Feb, [facility] [place] [facility] [address] [id number] [place] [address]- 0136 Feb, [facility] [place] [facility] [address] [id number] [place] [address]- 0283 Jan, [facility] [place] [facility] [address] [id number] [place] [address]- 9286 Jan, [facility] [place] [facility] [address] [id number] [place] [address]- 7249 Jan, [facility] [place] [facility] [address] [id number] [place] [address]- 2646 Jan, [facility] [place] [facility] [address] [id number] [place] [address]- 6546 Jan, [facility] [place] [facility] [address] [id number] [place] [address] 2546 Nov, [facility] [place] [facility] [address] [id number] [place] [address]- 0540 Nov, [facility] [place] [facility] [address] [id number] [place] [address]- 7800 October, [facility] [place] [facility] [address] [id number] [place] [address]- 4500 October, [facility] [place] [facility] [address] [id number] [place] [address]- 3776 October, [facility] [place] [facility] [address] [id number] [place] [address]- 7056 October, [facility] [place] [facility] [address] [id number] [place] [address]- 9486 Sep, [facility] [place] [facility] [address] [id number] [place] [address]- 4721 Aug, [facility] [place] [facility] [address] [id number] [place] [address]- 5910 Aug, [facility] [place] [facility] [address] [id number] [place] [address]- 7433 Aug, [facility] [place] [facility] [address] [id number] [place] [address]- 8665 Aug, [facility] [place] [facility] [address] [id number] [place] [address]- 5396 Jul, [facility] [place] [facility] [address] [id number] [place] [address]- 2546 Jul, [facility] [place] [facility] [address] [id number] [place] [address]- 6617 Jun, [facility] [place] [facility] [address] [id number] [place] [address]- 3615 Jun, [facility] [place] [facility] [address] [id number] [place] [address]- 4315 Jun, [facility] [place] [facility] [address] [id number] [place] [address]- 4751 Jun, [facility] [place] [facility] [address] [id number] [place] [address]- 2880 Jun, [facility] [place] [facility] [address] [id number] [place] [address]- 4777 Jun, [facility] [place] [facility] [address] [id number] [place] [address]- 8671 Mar, [facility] [place] [facility] [address] [id number] [place] [address]- 4323 Mar, [facility] [place] [facility] [address] [id number] [place] [address]- 4235 Feb, [facility] [place] [facility] [address] [id number] [place] [address]- 8618 Feb, [facility] [place] [facility] [address] [id number] [place] [address]- 5348 Feb, [facility] [place] [facility] [address] [id number] [place] [address]- 7238 Jan, [facility] [place] [facility] [address] [id number] [address]- 2219 Jan, [facility] [place] [facility] [address] [id number] [place] [address]- 0317 Dec, [facility] [place] [facility] [address] [id number] [place] [address]- 5654 Nov, [facility] [place] [facility] [address] [id number] [place] [address]- 2868 Sep, [facility] [place] [facility] [address] [id number] [place] [address]- 8468 Aug, [facility] [address] [id number] [place] [address]- 9644 Aug, [facility] [place] [facility] [address] [id number] [place] [address]- 1538 Aug, [facility] [place] [facility] [address] [id number] [place] [address]- 2816 Jul, [facility] [place] [facility] [address] [id number] [place] [address]- 9356 Jul, [facility] [place] [facility] [address] [id number] [place] [address]- 7089 Jul, [facility] [place] [facility] [address] [id number] [place] [address]- 6804 Jul, [facility] [place] [facility] [address] [id number] [place] [address]- 8010 Jul, [facility] [address] [id number] [place] [address] Apr, [facility] [place] [facility] [address] [id number] [place] [address] Apr, [facility] [address] [id number] [place] [address] Jan, [facility] [place] [facility] [address] [id number] [place] [address] Jan, [facility] [place] [facility] [address] [id number] [place] [address] Dec, [facility] [place] [facility] [address] [id number] [place] [address] Dec, [facility] [place] [facility] [address] [id number] [place] [address] Dec, [facility] [place] [facility] [address] [id number] [place] [address] Dec, [facility] [id number] [address] Dec, [facility] [id number], [place] [address] October, [facility] [address] [id number], [place] [address] Aug, [facility] [id number], [place] [address] Aug, [facility] [id number], [place] [address] Aug, [facility] [id number], [place] [address] Jul, [facility] [id number], [place] [address] May, [facility] [id number], [place] [address] Apr, [facility] [id number], [place] [address] May, [facility] [id number], [place] [address] May, [facility] [id number], [place] [address] May, [facility] [id number], [place] [address] Mar, [facility] [id number], [place] [address] Mar, [facility] [id number], [place] [address] Aug, IMMUNIZATIONS No Known Immunizations SOCIAL HISTORY Never Assessed REASON FOR VISIT Controlled Med Refill 03/16/2017 PLAN OF CARE VITAL SIGNS MEDICATIONS Medication Instructions Dosage Frequency Start Date End Date Duration Status Lyrica 150 MG Orally 3 times a day 1 capsule 8h 14 Apr, 2016 28 days Active Hydrocodone-Acetaminophen 10-325 MG Orally 5 times per day 1 tablet as needed Feb, 28 days Active RESULTS No Results PROCEDURES No Known procedures INSTRUCTIONS MEDICATIONS ADMINISTERED No Known Medications MEDICAL (GENERAL) HISTORY Type Description Date Medical History chronic pain Medical History arthritis Surgical History Nephrectomy - age 3 Surgical History Appendectomy Hospitalization History surgery Hospitalization History childbirth x 3
--- OUTSIDE RECORDS SUMMARY | 2018-06-07 13:33 | XMS REPORT ---
Author Author CHUY NGUYEN Organization [facility] Address [address] [place] [address] Care Team Providers Care Waterworks Supervisor Name Role Phone CHUY NGUYEN Unavailable PROBLEMS Type Condition ICD9-CM Code ZKL85-JS Code Onset Dates Condition Status SNOMED Code Problem Scoliosis (and kyphoscoliosis), idiopathic M41.20 Active 90166032 Problem Myalgia M79.1 Active 09869663 Problem Other chronic pain G89.29 Active 52052084 Problem Urinary urgency R39.15 Active 23842861 Problem Dysthymia F34.1 Active 02980458 Problem Varicose veins I86.8 Active 029318477 Problem Need for prophylaxis against urinary tract infection Z29.8 Active 993947503 Problem Abnormal mammogram of left breast R92.8 Active 912879142 Problem Scoliosis, unspecified scoliosis type, unspecified spinal region M41.9 Active 057744300 Problem Arthralgia M25.50 Active 62108773 Problem Calculus of gallbladder without cholecystitis without obstruction K80.20 Active 997782695 Problem Major depressive disorder, single episode, unspecified F32.9 Active 54624938 ALLERGIES No Information ENCOUNTERS Encounter Location Date Diagnosis [facility] [id number] [place] [address] 22543- 1016 October, Other chronic pain G89.29 and Myalgia M79.1 [facility] [id number] [place] [address] 79862- 8294 Sep, Other chronic pain G89.29 [facility] [id number] [place] [address] 09094- 2077 Aug, Other chronic pain G89.29 [facility] [id number] [place] [address] 82367- 2273 Aug, Scoliosis (and kyphoscoliosis), idiopathic M41.20 [facility] [id number] [address] 6415 Aug, [facility] [id number] [place] [address] 88723- 6250 12 Aug, 2017 Dysuria R30.0 ; Scoliosis, unspecified scoliosis type, unspecified spinal region M41.9 ; Encounter for therapeutic drug level monitoring Z51.81 and Alcohol use Z78.9 [facility] [id number] [place] [address] 09691- 1146 07 Aug, 2017 Other chronic pain G89.29 [facility] [id number] [place] [address] 91817- 7296 23 Jul, 2017 Chronic urinary tract infection N39.0 [facility] [id number] [place] [address] 84033- 4993 07 Jul, 2017 Other chronic pain G89.29 [facility] [id number] [place] [address] 82419- 5629 Jun, [facility] [id number] [place] [address] 86660- 7016 Jun, [facility] [id number] [place] [address] 34810- 0164 Jun, Acute left-sided thoracic back pain M54.6 [facility] [id number] [place] [address] 90861 -6694 18 Jun, 2017 Cough R05 and Acute bilateral thoracic back pain M54.6 [facility] [id number] [place] [address] 35023 -4929 15 Jun, 2017 Back pain, unspecified back location, unspecified back pain laterality, unspecified chronicity M54.9 and Left flank pain R10.9 [facility] [id number] [place] [address] 32964- 7746 Jun, Other chronic pain G89.29 [facility] [id number] [place] [address]- 0928 Jun, Myalgia M79.1 [facility] [id number] [place] [address] 84887- 7962 May, Other chronic pain G89.29 [facility] [id number] [place] [address] 07882- 7989 May, Myalgia M79.1 and Fatigue due to exposure, subsequent encounter T73.2XXD [facility] [id number] [place] [address] 42861- 2801 05 May, 2017 Fatigue due to exposure, subsequent encounter T73.2XXD [place] [address] 39587- 0325 15 Apr, 2017 Other chronic pain G89.29 and Myalgia M79.1 [facility] [address] 20354- 0071 08 Apr, 2017 Closed nondisplaced fracture of phalanx of left great toe with routine healing, unspecified phalanx, subsequent encounter S92.405D ; Dysuria R30.0 ; Localized edema R60.0 and Arthralgia M25.50 [facility] [id number] [place] [address] 24628- 2183 Mar, Other chronic pain G89.29 and Myalgia M79.1 [facility] [id number] [place] [address] 31768- 9752 Mar, [facility] [id number] [place] [address] 75192- 8421 Mar, Dysuria R30.0 ; Other chronic pain G89.29 ; Scoliosis, unspecified scoliosis type, unspecified spinal region M41.9 and Chronic urinary tract infection N39.0 [facility] [id number] [place] [address] 96019- 6173 Feb, Arthralgia M25.50 and Myalgia M79.1 [facility] [address] [address] 9952 Feb, [facility] [address] [address] 1353 Feb, [facility] [address] [address]- 9688 Feb, Closed compression fracture of L4 lumbar vertebra with routine healing, subsequent encounter S32.040D ; Closed nondisplaced fracture of phalanx of left great toe with routine healing, unspecified phalanx, subsequent encounter S92.405D and Chronic urinary tract infection N39.0 [facility] [id number] [place] [address] 38960- 1350 Jan, Closed compression fracture of fourth lumbar vertebra, initial encounter S32.040A [place] [address] [address]- 1185 Jan, Urinary tract infection, site not specified N39.0 [facility] [address] [address]- 9020 Jan, [facility] [id number] [place] [address] 36361- 8952 Jan, [facility] [address] [address]- 9688 Jan, Arthralgia M25.50 and Myalgia M79.1 [facility] [address] [address]- 8354 Jan, Need for prophylaxis against urinary tract infection Z29.8 and Urinary tract infection, site not specified N39.0 [facility] [address] [address]- 8920 Dec, Urinary tract infection, site not specified N39.0 and Need for prophylaxis against urinary tract infection Z29.8 [facility] [address] [address]- 7536 Dec, Major depressive disorder, single episode, unspecified F32.9 ; Myalgia M79.1 ; Arthralgia M25.50 and FCI 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 Z79.891 [facility] [id number] [place] [address] 60251- 1295 Dec, Other chronic pain G89.29 and Dysuria R30.0 [facility] [address] 14385- 0259 Nov, 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 [facility] [id number] [place] [address] 64309- 3791 Nov, Acute midline low back pain without sciatica M54.5 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 [facility] [id number] [place] [address] 95757- 9338 Nov, [place] [address] 34343- 7393 October, [facility] [address] 00063- 8362 October, [place] [address] 59508- 3774 Sep, Right leg pain M79.604 [facility] [id number] [place] [address] 63486- 2043 Sep, [facility] [id number] [place] [address] 94444- 0368 Aug, Right leg pain M79.604 [facility] [address] 89885- 0026 Jul, [place] [address] 04808- 2988 Jul, Arthralgia M25.50 and Right leg pain M79.604 [place] [address] 47934- 7172 Jun, Arthralgia M25.50 [facility] [place] [id number] [place] [address] 65003- 7666 Jun, [facility] [id number] [place] [address] 63790- 4321 Jun, Right leg pain M79.604 [facility] [id number] [place] [address] 49615- 4716 Jun, Right leg pain M79.604 [facility] [id number] [place] [address] 77058- 2143 Jun, Abnormal mammogram of left breast R92.[address] 67333- 4332 May, Routine gynecological examination V72.31 ; Breast cancer screening Z12.39 ; Cervical cancer screening Z12.4 ; Colon cancer screening Z12.11 and Calculus of gallbladder without cholecystitis without obstruction K80.20 [facility] [id number] [place] [address] 36324- 6347 May, Arthralgia M25.[address] 54516- 7733 Apr, Arthralgia M25.50 [place] [id number] [place] [address] 61995- 5510 Apr, Screening, lipid Z13.220 [place] [id number] [place] [address] 02292- 1377 14 Apr, 2016 Other chronic pain G89.29 ; Scoliosis, unspecified scoliosis type, unspecified spinal region M41.9 ; Right leg pain M79.604 ; Major depressive disorder, single episode, unspecified F32.9 ; Fatigue due to exposure, subsequent encounter T73.2XXD ; Dysthymia F34.1 and Screening, lipid Z13.220 [id number] [place] [address] 93544- 6689 Apr, Arthralgia M25.50 [facility] [address] [address]- 8032 Mar, Dysthymia 300.4 [facility] [id number] [place] [address] 82681- 1092 Mar, Arthralgia M25.50 [facility] [id number] [place] [address] 71588- 6436 Feb, Arthralgia M25.50 [facility] [id number] [place] [address] 35123- 8881 Jan, Arthralgia M25.50 [facility] [id number] [place] [address] 34518- 6759 Dec, 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 [facility] [id number] [place] [address] 76934- 9386 Dec, [facility] [id number] [place] [address] 88648- 6132 Dec, Right leg pain M79.604 and Scoliosis, unspecified scoliosis type, unspecified spinal region M41.9 [facility] [id number] [place] [address] 24247- 9951 Dec, Right leg pain M79.604 and Scoliosis, unspecified scoliosis type, unspecified spinal region M41.9 [facility] [id number] [place] [address] 08641- 4246 Dec, Arthralgia M25.50 [facility] [id number] [place] [address] 69842- 6013 Nov, Arthralgia M25.50 [facility] [id number] [place] [address] 83747- 9267 October, Arthralgia M25.50 and Scoliosis, unspecified scoliosis type , unspecified spinal region M41.9 [facility] [id number] [place] [address] 91586- 0521 Sep, [facility] [id number] [place] [address] 26726- 2903 Aug, [place] [id number] [place] [address] 40900- 1694 Aug, Arthralgia M25.50 ; Myalgia M79.1 and Scoliosis M41.9 [place] [place] [id number] [place] [address] 37070- 7934 Jul, Other chronic pain G89.29 [facility] [id number] [place] [address] 98949- 2928 Jul, Other chronic pain G89.29 [facility] [id number] [place] [address] 45235- 0813 Jul, Impingement syndrome of both shoulders M75.41 [facility] [id number] [place] [address] 07429- 5267 Jun, [facility] [facility] [id number] [place] [address] 37845- 9611 Jun, [place] [id number] [place] [address] 61346- 4604 Jun, Scoliosis (and kyphoscoliosis), idiopathic M41.20 and Other chronic pain G89.29 [facility] [id number] [place] [address] 54998 -1496 Jun, Upper respiratory tract infection, unspecified type 465.9 and Rhinorrhea J34.89 [facility] [id number] [place] [address] 63133- 8772 May, [place] [address] 44935- 7326 May, [facility] [place] [id number] [place] [address] 83590- 4805 Apr, Dysuria R30.0 ; Urinary tract infection, site not specified N39.0 and Hematuria, unspecified R31.9 [facility] [id number] [place] [address] 55305- 9461 Apr, [facility] [id number] [place] [address] 209370- 4986 Mar, Family history of early CAD Z82.49 [facility] [address] 80464- 8643 Mar, Other chronic pain G89.29 [facility] [id number] [place] [address] 71785- 8851 Mar, Impingement syndrome of both shoulders M75.41 [facility] [id number] [place] [address] 91104- 2899 Mar, Other chronic pain G89.29 ; Dysthymia F34.1 ; Family history of early CAD Z82.49 ; Dysuria R30.0 and Other specified disorders of Eustachian tube, right ear H69.81 [facility] [id number] [place] [address] 88623- 0832 Mar, [facility] [id number] [place] [address] 83009- 5671 Feb, [facility] [id number] [place] [address] 33458- 2003 Jan, [facility] [id number] [place] [address] 57902- 5229 Jan, Eustachian tube dysfunction 381.81 and Dysthymia 300.4 [facility] [id number] [place] [address] 47534- 4856 Dec, [facility] [id number] [place] [address] 96192- 2470 Nov, Impingement syndrome of both shoulders 726.2 [facility] [id number] [place] [address] 51661- 9512 Nov, [facility] [address] [id number] [place] [address]- 1599 Nov, [facility] [address] [facility] [id number] [place] [address]- 0135 Nov, Urgency of urination 788.63 [facility] [address] [facility] [id number] [place] [address]- 2216 October, [facility] [address] [id number] [place] [address]- 0396 October, [facility] [address] [id number] [place] [address]- 7367 Sep, [facility] [place] [facility] [address] [facility] [id number] [place] [address]- 1337 Sep, [facility] [id number] [place] [address]- 9971 Aug, [facility] [place] [facility] [address] [id number] [place] [address]- 7894 Aug, [facility] [place] [facility] [address] [id number] [place] [address]- 8647 Aug, [facility] [place] [facility] [address] [facility] [id number] [place] [address]- 3535 Aug, [facility] [place] [facility] [id number] [place] [address]- 6541 Aug, [facility] [place] [facility] [address] [id number] [place] [address] 2542 Aug, [facility] [place] [facility] [address] [id number] [place] [address] 2546 Aug, [facility] [place] [facility] [address] [facility] [id number] [place] [address]- 1994 Jul, [facility] [place] [facility] [id number] [place] [address]- 0866 Jul, [facility] [place] [facility] [address] [facility] [id number] [place] [address]- 0206 Jul, 2014 [facility] [place] [facility] [address] [id number] [place] [address]- 1515 Jul, 2014 [facility] [place] [facility] [address] [id number] [place] [address]- 8746 Jul, 2014 [facility] [place] [facility] [address] [id number] [place] [address]- 2006 Jul, 2014 [facility] [place] [facility] [address] [id number] [place] [address]- 6479 Jun, [facility] [place] [facility] [address] [id number] [place] [address]- 6325 Jun, [facility] [place] [facility] [address] [facility] [id number] [place] [address]- 5036 May, [facility] [place] [facility] [address] [id number] [place] [address]- 0906 May, [facility] [place] [facility] [address] [id number] [place] [address]- 4221 May, [facility] [place] [facility] [address] [facility] [id number] [place] [address]- 3689 May, [facility] [place] [facility] [address] [facility] [id number] [place] [address]- 2263 Mar, [facility] [place] [facility] [address] [facility] [id number] [place] [address]- 4284 Mar, [facility] [place] [facility] [address] [id number] [place] [address]- 9703 Feb, [facility] [place] [facility] [address] [id number] [place] 7623 Feb, [facility] [place] [facility] [address] [facility] [id number] [place] [address]- 1258 Jan, [facility] [place] [facility] [address] [facility] [id number] [place] [address]- 4186 Jan, [facility] [place] [facility] [address] [id number] [place] [address]- 7752 Jan, [facility] [place] [facility] [address] [id number] [place] [address]- 8738 Jan, [facility] [place] [facility] [address] [id number] [place] [address]- 4832 Jan, [facility] [place] [facility] [address] [id number] [place] [address]- 4907 Nov, [facility] [place] [facility] [address] [id number] [place] [address]- 2980 Nov, [facility] [place] [facility] [address] [id number] [place] [address]- 0909 October, [facility] [place] [facility] [address] [id number] [place] [address]- 1235 October, [facility] [place] [facility] [address] [id number] [place] [address]- 6344 October, [facility] [place] [facility] [address] [id number] [place] [address]- 8164 October, [facility] [place] [facility] [address] [id number] [place] [address]- 6209 Sep, [facility] [place] [facility] [address] [id number] [place] [address]- 6286 Aug, [facility] [place] [facility] [address] [id number] [place] [address]- 0519 Aug, [facility] [place] [facility] [address] [id number] [place] [address]- 2509 Aug, [facility] [place] [facility] [address] [id number] [place] [address]- 8604 Aug, [facility] [place] [facility] [address] [id number] [place] [address]- 8654 Jul, [facility] [place] [facility] [address] [id number] [place] [address]- 5603 Jul, [facility] [address] [id number] [place] [address]- 3898 Jun, [facility] [place] [facility] [address] [id number] [place] [address]- 7724 Jun, [facility] [place] [facility] [address] [id number] [place] [address]- 0217 Jun, [facility] [place] [facility] [address] [id number] [place] [address]- 0436 Jun, [facility] [place] [facility] [address] [id number] [place] [address]- 5100 Jun, [facility] [place] [facility] [address] [id number] [place] [address]- 7012 Jun, [facility] [address] [id number] [place] [address]- 7918 Mar, [facility] [place] [facility] [address] [id number] [place] [address]- 2018 Mar, [facility] [place] [facility] [address] [id number] [place] [address]- 9863 Feb, [facility] [place] [facility] [address] [id number] [place] [address]- 6278 Feb, [facility] [place] [facility] [address] [id number] [place] [address]- 1020 09 Feb, 2013 [facility] [place] [facility] [address] [id number] [place] [address]- 7214 Jan, [facility] [place] [facility] [address] [id number] [place] [address]- 9716 15 Jan, 2013 [facility] [place] [facility] [address] [id number] [place] [address] 2547 Dec, [facility] [place] [facility] [address] [id number] [place] [address]- 2043 Nov, [facility] [place] [facility] [address] [id number] [place] [address]- 9775 Sep, [facility] [place] [facility] [address] [id number] [place] [address] Aug, [facility] [address] [id number] [place] [address] Aug, [facility] [place] [facility] [address] [id number] [place] [address] Aug, [facility] [address] [id number] [place] [address] Jul, [facility] [place] [facility] [address] [id number] [place] [address] Jul, [facility] [address] [id number] [place] [address] Jul, [facility] [address] [id number] [place] [address] Jul, [facility] [address] [id number] [place] [address] Jul, [facility] [address] [id number] [place] [address] Apr, [facility] [address] [id number] [place] [address] Apr, [facility] [place] [facility] [address] [id number] [place] [address] Jan, [facility] [place] [facility] [address] [id number] [place] [address] Jan, [facility] [place] [facility] [address] [id number] [place] [address] Dec, [facility] [place] [facility] [address] [id number] [place] [address] Dec, [facility] [place] [facility] [address] [facility] [id number] [place] [address] Dec, [facility] [address] [id number] [place] [address] Dec, [facility] [address] [facility] [id number] [place] [address]- [address] Dec, [facility] [address] [facility] [id number] [place] [address] October, [facility] [address] [facility] [id number] [place] [address] Aug, [facility] [address] [facility] [id number] [place] [address]- [address] Aug, [facility] [address] [facility] [id number] [place] [address] Aug, [facility] [address] [facility] [id number] [place] [address]- [address] Jul, [facility] [address] [facility] [id number] [place] [address]- [address] May, [facility] [address] [facility] [id number] [place] [address] Apr, [facility] [address] [facility] [id number] [place] [address] May, [facility] [id number] [place] [address] May, [facility] [address] [facility] [id number] [place] [address]- [address] May, [facility] [address] [facility] [id number] [place] [address]- [address] Mar, [facility] [address] [facility] [id number] [place] [address]- [address] Mar, [facility] [address] [facility] [id number] [address] Aug, IMMUNIZATIONS No Known Immunizations SOCIAL HISTORY Never Assessed REASON FOR VISIT Controlled Med Refill 07/06/17 PLAN OF CARE VITAL SIGNS MEDICATIONS Medication Instructions Dosage Frequency Start Date End Date Duration Status Percocet 10-325 MG Orally 5 times per day 1 tablet as needed Jun, 28 days Active RESULTS No Results PROCEDURES No Known procedures INSTRUCTIONS MEDICATIONS ADMINISTERED No Known Medications MEDICAL (GENERAL) HISTORY Type Description Date Medical History chronic pain Medical History arthritis Surgical History Nephrectomy - age 3 Surgical History Appendectomy Hospitalization History surgery Hospitalization History childbirth x 3
--- OUTSIDE RECORDS SUMMARY | 2018-06-07 13:33 | XMS REPORT ---
Author Author CHUY NGUYEN [facility] Address [address] [place] [address] Care Team Providers Care Inhalation Therapy Aides Teacher Name Role Phone CHUY NGUYEN Unavailable PROBLEMS Type Condition ICD9-CM Code [id number] Code Onset Dates Condition Status SNOMED Code Problem Scoliosis (and kyphoscoliosis), idiopathic M41.20 Active 70990192 Problem Myalgia M79.1 Active 45767562 Problem Other chronic pain G89.29 Active 97965352 Problem Urinary urgency R39.15 Active 76033017 Problem Dysthymia F34.1 Active 02229367 Problem Varicose veins I86.8 Active 270008646 Problem Need for prophylaxis against urinary tract infection Z29.8 Active 121811566 Problem Abnormal mammogram of left breast R92.8 Active 030154663 Problem Scoliosis, unspecified scoliosis type, unspecified spinal region M41.9 Active 173726387 Problem Arthralgia M25.50 Active 13414656 Problem Calculus of gallbladder without cholecystitis without obstruction K80.20 Active 021417865 Problem Major depressive disorder, single episode, unspecified F32.9 Active 67432107 ALLERGIES No Information ENCOUNTERS Encounter Location Date Diagnosis [place] [id number] [place] [address] 65555- 9764 30 Aug, 2017 Other chronic pain G89.29 [facility] [address] [place] [id number] [place] [address] 39588- 7893 29 Aug, 2017 Scoliosis (and kyphoscoliosis), idiopathic M41.20 [facility] [address] [place] [id number] [place] [address] 74626- 3742 Aug, [facility] [address] [place] [id number] [place] [address] 45254- 6963 12 Aug, 2017 Dysuria R30.0 ; Scoliosis, unspecified scoliosis type, unspecified spinal region M41.9 ; Encounter for therapeutic drug level monitoring Z51.81 and Alcohol use Z78.9 [facility] [address] [id number] [place] [address] 16252- 4272 Aug, Other chronic pain G89.29 [facility] [address] [id number] [place] [address] 26104- 0555 Jul, Chronic urinary tract infection N39.0 [facility] [address] [place] [id number] [place] [address] 07943- 9466 Jul, Other chronic pain G89.29 [place] [address] [place] [id number] [place] [address] 38404- 3987 Jun, [facility] [address] [place] [id number] [place] [address] 34591- 3100 Jun, [place] [address] [place] [id number] [place] [address] 30294- 4856 Jun, Acute left-sided thoracic back pain M54.6 [facility] [id number] [place] [address] 83057 -1916 18 Jun, 2017 Cough R05 and Acute bilateral thoracic back pain M54.6 [facility] [address] [address] [id number] [place] [address] 67489 -8703 15 Jun, 2017 Back pain, unspecified back location, unspecified back pain laterality, unspecified chronicity M54.9 and Left flank pain R10.9 [facility] [address] [id number] [place] [address] 89846- 3905 Jun, Other chronic pain G89.29 [facility] [address] [place] [id number] [place] [address] 82134- 2954 Jun, Myalgia M79.1 [facility] [address] [place] [id number] [place] [address] 09538- 0681 May, Other chronic pain G89.29 [facility] [address] [place] [id number] [place] [address] 08150- 0618 May, Myalgia M79.1 and Fatigue due to exposure, subsequent encounter T73.2XXD [place] [address] [place] [id number] [place] [address] 72484- 1541 05 May, 2017 Fatigue due to exposure, subsequent encounter T73.2XXD [place] [address] [place] [id number] [place] [address] 27509- 2239 15 Apr, 2017 Other chronic pain G89.29 and Myalgia M79.1 [place] [address] 97073- 1420 08 Apr, 2017 Closed nondisplaced fracture of phalanx of left great toe with routine healing, unspecified phalanx, subsequent encounter S92.405D ; Dysuria R30.0 ; Localized edema R60.0 and Arthralgia M25.50 [place] [address] 46250- 2510 Mar, Other chronic pain G89.29 and Myalgia M79.1 [place] [address] [place] [id number] [place] [address] 52680- 2603 Mar, [place] [address] [place] [id number] [place] [address] 41944- 1915 Mar, Dysuria R30.0 ; Other chronic pain G89.29 ; Scoliosis, unspecified scoliosis type, unspecified spinal region M41.9 and Chronic urinary tract infection N39.0 [place] [address] [place] [id number] [place] [address] 86248- 4158 Feb, Arthralgia M25.50 and Myalgia M79.1 [place] [address] 68432- 9523 13 Feb, 2017 [place] [address] [place] [id number] [place] [address] 65041- 6742 Feb, [place] [address] [place] [id number] [place] [address] 02142- 8649 Feb, Closed compression fracture of L4 lumbar vertebra with routine healing, subsequent encounter S32.040D ; Closed nondisplaced fracture of phalanx of left great toe with routine healing, unspecified phalanx, subsequent encounter S92.405D and Chronic urinary tract infection N39.0 [facility] [id number] [place] [address] 99398- 1231 Jan, Closed compression fracture of fourth lumbar vertebra, initial encounter S32.040A [facility] [address] [place] [id number] [place] [address] 66003- 3884 Jan, Urinary tract infection, site not specified N39.0 [place] [address] [place] [id number] [place] [address] 40962- 3560 Jan, [place] [address] [place] [id number] [place] [address] 66469- 3211 Jan, [place] [address] [place] [id number] [place] [address] 40529- 4300 Jan, Arthralgia M25.50 and Myalgia M79.1 [place] [address] [place] [id number] [place] [address] 43865- 9450 Jan, Need for prophylaxis against urinary tract infection Z29.8 and Urinary tract infection, site not specified N39.0 [place] [address] [place] [address] 90471- 5905 Dec, Urinary tract infection, site not specified N39.0 and Need for prophylaxis against urinary tract infection Z29.8 [facility] [address] [place] [address] 71976- 3165 Dec, Major depressive disorder, single episode, unspecified F32.9 ; Myalgia M79.1 ; Arthralgia M25.50 and 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 [facility] [address] [place] [address] 53548- 3249 Dec, Other chronic pain G89.29 and Dysuria R30.0 [place] [address] [place] [id number] [place] [address] 06233- 3358 Nov, 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 [facility] [address] [place] [id number] [place] [address] 17508- 3244 Nov, Acute midline low back pain without sciatica M54.5 and 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 [facility] [address] [place] [id number] [place] [address] 21346- 1623 Nov, [facility] [address] [place] [id number] [place] [address] 25148- 4592 October, [facility] [address] [place] [id number] [place] [address] 93650- 9670 October, [facility] [address] [place] [id number] [place] [address] 22615- 0055 Sep, Right leg pain M79.604 [facility] [address] [place] [id number] [place] [address] 88982- 4784 Sep, [facility] [address] [place] [id number] [place] [address] 06544- 9396 Aug, Right leg pain M79.604 [facility] [address] [place] [id number] [place] [address] 99546- 3222 Jul, [facility] [address] [place] [id number] [place] [address] 54283- 2764 Jul, Arthralgia M25.50 and Right leg pain M79.604 [facility] [address] [place] [address] 36165- 8821 Jun, Arthralgia M25.50 [facility] [address] [place] [id number] [place] [address] 42908- 0146 Jun, [facility] [address] [place] [id number] [place] [address] 18889- 0938 Jun, Right leg pain M79.604 [place] [address] [place] [id number] [place] [address] 24973- 3347 Jun, Right leg pain M79.[address] 55178- 9332 Jun, Abnormal mammogram of left breast R92.[address] 80735- 5817 May, Routine gynecological examination V72.31 ; Breast cancer screening Z12.39 ; Cervical cancer screening Z12.4 ; Colon cancer screening Z12.11 and Calculus of gallbladder without cholecystitis without obstruction K80.[address] 41658- 7606 May, Arthralgia M25.[address] 86348- 4279 Apr, Arthralgia M25.[address] 12173- 0663 Apr, Screening, lipid Z13.[address] 58288- 2689 14 Apr, 2016 Other chronic pain G89.29 ; Scoliosis, unspecified scoliosis type, unspecified spinal region M41.9 ; Right leg pain M79.604 ; Major depressive disorder, single episode, unspecified F32.9 ; Fatigue due to exposure, subsequent encounter T73.2XXD ; Dysthymia F34.1 and Screening, lipid Z13.220 [place] [id number] [place] [address] 45724- 3353 Apr, Arthralgia M25.[address] 07824- 7819 Mar, Dysthymia 300.[address] 52066- 0758 Mar, Arthralgia M25.[address] [place] [id number] [address] 9001 Feb, Arthralgia M25.50 [facility] [address] [place] [id number] [place] [address] 07484- 3423 Jan, Arthralgia M25.50 [facility] [address] [place] [id number] [place] [address] 49774- 2815 Dec, 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 [facility] [address] [place] [id number] [place] [address] 80779- 8422 Dec, [facility] [address] [place] [id number] [place] [address] 92937- 3068 Dec, Right leg pain M79.604 and Scoliosis, unspecified scoliosis type, unspecified spinal region M41.9 [facility] [address] [place] [id number] [place] [address] 51754- 7228 Dec, Right leg pain M79.604 and Scoliosis, unspecified scoliosis type, unspecified spinal region M41.9 [facility] [address] [place] [id number] [place] [address] 29589- 9698 Dec, Arthralgia M25.50 [facility] [address] [place] [id number] [place] [address] 85873- 5341 Nov, Arthralgia M25.50 [facility] [address] [place] [id number] [place] [address] 20687- 8936 October, Arthralgia M25.50 and Scoliosis, unspecified scoliosis type , unspecified spinal region M41.9 [facility] [address] [place] [address] 88884- 3427 Sep, [facility] [address] [place] [id number] [place] [address] 36659- 3864 Aug, [facility] [address] [place] [address] 32226- 0080 Aug, Arthralgia M25.50 ; Myalgia M79.1 and Scoliosis M41.9 [facility] [address] [place] [id number] [place] [address] 86161- 2583 Jul, Other chronic pain G89.29 [facility] [address] [place] [id number] [place] [address] 02579- 6143 Jul, Other chronic pain G89.29 [facility] [address] 03871- 5910 Jul, Impingement syndrome of both shoulders M75.41 [facility] [address] [place] [id number] [place] [address] 92325- 7722 Jun, [facility] [address] [place] [id number] [place] [address] 25373- 5922 Jun, [facility] [address] [place] [id number] [place] [address] 99704- 0648 Jun, Scoliosis (and kyphoscoliosis), idiopathic M41.20 and Other chronic pain G89.29 [facility] [address] [place] [id number] [place] [address] 05558 -0919 Jun, Upper respiratory tract infection, unspecified type 465.9 and Rhinorrhea J34.89 [facility] [address] [place] [id number] [place] [address] 08069- 2826 May, [facility] [address] [place] [id number] [place] [address] 21101- 7945 May, [facility] [address] [place] [id number] [place] [address] 02765- 7320 Apr, Dysuria R30.0 ; Urinary tract infection, site not specified N39.0 and Hematuria, unspecified R31.9 [facility] [address] [place] [id number] [place] [address] 08451- 9778 Apr, [facility] [address] [place] [id number] [place] [address] 40251- 1827 Mar, Family history of early CAD Z82.49 [facility] [address] [place] [id number] [place] [address] 83671- 9042 Mar, Other chronic pain G89.29 [facility] [address] 49187- 4370 Mar, Impingement syndrome of both shoulders M75.41 [facility] [address] [place] [id number] [place] [address] 08558- 4345 Mar, Other chronic pain G89.29 ; Dysthymia F34.1 ; Family history of early CAD Z82.49 ; Dysuria R30.0 and Other specified disorders of Eustachian tube, right ear H69.81 [facility] [address] [place] [id number] [place] [address] 96248- 2123 Mar, [facility] [address] 37860- 9043 Feb, [facility] [address] 16562- 7642 Jan, [facility] [address] 65848- 4029 Jan, Eustachian tube dysfunction 381.81 and Dysthymia 300.4 [facility] [address] [place] [id number] [place] [address] 53901- 3905 Dec, [facility] [address] [place] [id number] [place] [address] 97935- 8166 Nov, Impingement syndrome of both shoulders 726.2 [facility] [address] [place] [id number] [place] [address] 14848- 9392 Nov, [facility] [address] 88987- 3815 Nov, [facility] [address] [place] [id number] [place] [address] 79328- 2749 Nov, Urgency of urination 788.63 [facility] [address] [place] [address]- 3549 October, [facility] [place] [facility] [address] [id number] [place] [address]- 9752 October, [facility] [place] [facility] [address] [id number] [place] [address]- 9850 Sep, [facility] [place] [facility] [address] [id number] [place] [address]- 8393 Sep, [facility] [place] [facility] [address] [id number] [place] [address]- 3606 Aug, [facility] [place] [facility] [address] [id number] [place] [address]- 1626 Aug, [facility] [place] [facility] [address] [id number] [place] [address]- 5807 Aug, [facility] [place] [facility] [address] [id number] [place] [address]- 6267 Aug, [facility] [place] [facility] [address] [id number] [place] [address]- 6800 Aug, [facility] [place] [facility] [address] [id number] [place] [address]- 7615 Aug, [facility] [place] [facility] [address] [facility] [id number] [place] [address]- 7684 Aug, [facility] [place] [facility] [address] [id number] [place] [address]- 0513 Jul, [facility] [place] [facility] [address] [id number] [place] [address]- 1782 Jul, [facility] [place] [facility] [address] [id number] [place] [address]- 9844 Jul, [facility] [place] [facility] [address] [facility] [id number] [place] [address]- 3182 Jul, [facility] [place] [facility] [address] [facility] [id number] [place] [address]- 7770 Jul, [facility] [place] [facility] [address] [id number] [place] [address]- 6969 Jul, [facility] [place] [facility] [address] [id number] [place] [address]- 6032 Jun, [facility] [place] [facility] [address] [id number] [place] [address]- 8752 Jun, [facility] [place] [facility] [address] [id number] [place] [address]- 3071 May, [facility] [place] [facility] [address] [id number] [place] [address]- 5795 May, [facility] [place] [facility] [address] [id number] [place] [address]- 6334 May, [facility] [place] [facility] [address] [id number] [place] [address]- 0090 May, [facility] [place] [facility] [address] [id number] [place] [address]- 5694 Mar, [facility] [place] [facility] [address] [id number] [place] [address]- 5445 Mar, [facility] [place] [facility] [address] [id number] [place] [address]- 6037 Feb, [facility] [place] [facility] [address] [id number] [place] [address]- 7304 Feb, [facility] [place] [facility] [address] [id number] [place] [address]- 2989 Jan, [facility] [place] [facility] [address] [id number] [place] [address]- 0451 Jan, [facility] [place] [facility] [address] [id number] [place] [address]- 6594 Jan, [facility] [place] [facility] [address] [id number] [place] [address]- 2855 Jan, [facility] [place] [facility] [address] [id number] [place] [address]- 3316 Jan, [facility] [place] [facility] [address] [id number] [place] [address]- 3265 Nov, [facility] [place] [facility] [address] [id number] [place] [address]- 1484 Nov, [facility] [place] [facility] [address] [id number] [place] [address]- 8140 October, [facility] [place] [facility] [address] [id number] [place] [address]- 9157 October, [facility] [place] [facility] [address] [id number] [place] [address]- 9708 October, [facility] [place] [facility] [address] [id number] [place] [address]- 1270 October, [facility] [place] [facility] [address] [id number] [place] [address]- 1203 Sep, [facility] [place] [facility] [address] [id number] [place] [address]- 4994 Aug, [facility] [place] [facility] [address] [id number] [place] [address]- 5080 Aug, [facility] [place] [facility] [address] [id number] [place] [address]- 2461 Aug, [facility] [place] [facility] [address] [id number] [place] [address]- 1618 Aug, [facility] [place] [facility] [address] [id number] [place] [address]- 0578 Jul, [facility] [place] [facility] [address] [id number] [place] [address]- 7923 Jul, [facility] [place] [facility] [address] [id number] [place] [address]- 3719 Jun, [facility] [place] [facility] [address] [id number] [place] [address]- 0362 Jun, [facility] [place] [facility] [address] [id number] [place] [address]- 7291 Jun, [facility] [place] [facility] [address] [id number] [place] [address]- 5055 Jun, [facility] [place] [facility] [address] [id number] [place] [address]- 0410 Jun, [facility] [place] [facility] [address] [id number] [place] [address]- 8554 Jun, [facility] [place] [facility] [address] [id number] [place] [address]- 8049 Mar, [facility] [place] [facility] [address] [id number] [place] [address]- 5088 Mar, [facility] [place] [facility] [address] [id number] [place] [address]- 2326 Feb, [facility] [place] [facility] [address] [id number] [place] [address]- 5936 Feb, [facility] [place] [facility] [address] [id number] [place] [address]- 7537 Feb, [facility] [place] [facility] [address] [id number] [place] [address]- 6191 Jan, [facility] [place] [facility] [address] [id number] [place] [address]- 5469 Jan, [facility] [place] [facility] [address] [id number] [place] [address]- 5761 Dec, [facility] [place] [facility] [address] [id number] [place] [address]- 1911 Nov, [facility] [place] [facility] [address] [id number] [place] [address]- 4584 Sep, [facility] [place] [facility] [address] [id number] [place] [address]- 5549 Aug, [facility] [place] [facility] [address] [id number] [place] [address]- 1896 Aug, [facility] [address] [id number] [place] [address]- 1071 Aug, [facility] [place] [facility] [address] [id number] [place] [address] Jul, [facility] [address] [id number] [place] [address] Jul, [facility] [place] [facility] [address] [id number] [place] [address] Jul, [facility] [address] [id number] [place] [address] Jul, [facility] [address] [id number] [place] [address] Jul, [facility] [address] [facility] [id number] [place] [address] Apr, [facility] [address] [id number] [place] [address] Apr, [facility] [address] [facility] [id number] [place] [address] Jan, [facility] [address] [facility] [id number] [place] [address] Jan, [facility] [address] [facility] [id number] [place] [address] Dec, [facility] [place] [facility] [address] [id number] [place] [address] Dec, [facility] [place] [facility] [address] [id number] [place] [address] Dec, [facility] [place] [facility] [address] [facility] [id number] [place] [address] Dec, [facility] [place] [facility] [address] [facility] [id number] [place] [address] Dec, [facility] [place] [facility] [id number] [address] October, [facility] [id number] [address] Aug, [facility] [address] [facility] [id number] [place] [address] Aug, [facility] [id number] [address] Aug, [facility] [address] [facility] [id number] [place] [address] Jul, [facility] [id number] [address] May, [facility] [id number] [address] Apr, [facility] [id number] [address] May, [facility] [id number] [address] May, [facility] [id number] [address] May, [facility] [id number] [address] Mar, [facility] [id number] [address] Mar, [facility] [id number] [address] Aug, IMMUNIZATIONS No Known Immunizations SOCIAL HISTORY [...]
--- OUTSIDE RECORDS SUMMARY | 2018-06-07 13:34 | XMS REPORT ---
Author Author CHUY NGUYEN [facility] Address [address] [place] [address] Care Team Providers Care Analytics Leader Name Role Phone CHUY NGUYEN Unavailable PROBLEMS Type Condition ICD9-CM Code TUM14-CJ Code Onset Dates Condition Status SNOMED Code Problem Scoliosis (and kyphoscoliosis), idiopathic M41.20 Active 84087197 Problem Myalgia M79.1 Active 69544908 Problem Other chronic pain G89.29 Active 28343115 Problem Urinary urgency R39.15 Active 50912862 Problem Dysthymia F34.1 Active 11069601 Problem Varicose veins I86.8 Active 021928001 Problem Need for prophylaxis against urinary tract infection Z29.8 Active 026988924 Problem Abnormal mammogram of left breast R92.8 Active 295124585 Problem Scoliosis, unspecified scoliosis type, unspecified spinal region M41.9 Active 758141474 Problem Arthralgia M25.50 Active 27987151 Problem Calculus of gallbladder without cholecystitis without obstruction K80.20 Active 584014471 Problem Major depressive disorder, single episode, unspecified F32.9 Active 45203852 ALLERGIES No Information ENCOUNTERS Encounter Location Date Diagnosis [place] [id number] [place] [address] 51061- 2883 30 Aug, 2017 Other chronic pain G89.29 [facility] [address] [place] [address] [id number] [place] [address] 21581- 1306 29 Aug, 2017 Scoliosis (and kyphoscoliosis), idiopathic M41.20 [facility] [address] [place] [id number] [place] [address] 85125- 3473 Aug, [facility] [address] [place] [address] [id number] [place] [address] 00263- 5517 12 Aug, 2017 Dysuria R30.0 ; Scoliosis, unspecified scoliosis type, unspecified spinal region M41.9 ; Encounter for therapeutic drug level monitoring Z51.81 and Alcohol use Z78.9 [facility] [id number] [place] [address] 87486- 0870 Aug, Other chronic pain G89.29 [facility] [address] [id number] [place] [address] 76605- 3250 Jul, Chronic urinary tract infection N39.0 [facility] [address] [place] [id number] [place] [address] 00697- 4391 Jul, Other chronic pain G89.29 [place] [address] [place] [id number] [place] [address] 91040- 3847 Jun, [facility] [address] [place] [id number] [place] [address] 67625- 7003 Jun, [place] [address] [place] [id number] [place] [address] 80260- 9930 Jun, Acute left-sided thoracic back pain M54.6 [facility] [id number] [place] [address] 11098 -2272 18 Jun, 2017 Cough R05 and Acute bilateral thoracic back pain M54.6 [facility] [id number] [place] [address] 89556 -4928 15 Jun, 2017 Back pain, unspecified back location, unspecified back pain laterality, unspecified chronicity M54.9 and Left flank pain R10.9 [facility] [id number] [place] [address] 24303- 0669 Jun, Other chronic pain G89.29 [facility] [address] [place] [id number] [place] [address] 42972- 1050 Jun, Myalgia M79.1 [facility] [address] [place] [id number] [place] [address] 46619- 5613 May, Other chronic pain G89.29 [facility] [address] [place] [id number] [place] [address] 88860- 2222 May, Myalgia M79.1 and Fatigue due to exposure, subsequent encounter T73.2XXD [place] [address] [place] [id number] [place] [address] 13539- 6604 05 May, 2017 Fatigue due to exposure, subsequent encounter T73.2XXD [place] [address] [place] [id number] [place] [address] 48768- 1522 15 Apr, 2017 Other chronic pain G89.29 and Myalgia M79.1 [place] [address] 39790- 7578 08 Apr, 2017 Closed nondisplaced fracture of phalanx of left great toe with routine healing, unspecified phalanx, subsequent encounter S92.405D ; Dysuria R30.0 ; Localized edema R60.0 and Arthralgia M25.50 [place] [address] 10320- 3208 Mar, Other chronic pain G89.29 and Myalgia M79.1 [place] [address] [place] [id number] [place] [address] 21674- 0125 Mar, [place] [address] [place] [id number] [place] [address] 92628- 4715 Mar, Dysuria R30.0 ; Other chronic pain G89.29 ; Scoliosis, unspecified scoliosis type, unspecified spinal region M41.9 and Chronic urinary tract infection N39.0 [place] [address] [place] [id number] [place] [address] 88324- 1107 Feb, Arthralgia M25.50 and Myalgia M79.1 [place] [address] 66248- 5522 13 Feb, 2017 [place] [address] [place] [id number] [place] [address] 05849- 6771 Feb, [place] [address] [place] [id number] [place] [address] 50221- 4449 Feb, Closed compression fracture of L4 lumbar vertebra with routine healing, subsequent encounter S32.040D ; Closed nondisplaced fracture of phalanx of left great toe with routine healing, unspecified phalanx, subsequent encounter S92.405D and Chronic urinary tract infection N39.0 [facility] [id number] [place] [address] 75497- 7813 Jan, Closed compression fracture of fourth lumbar vertebra, initial encounter S32.040A [facility] [address] [place] [id number] [place] [address] 73384- 4367 Jan, Urinary tract infection, site not specified N39.0 [place] [address] [place] [id number] [place] [address] 71781- 4801 Jan, [place] [address] [place] [id number] [place] [address] 53091- 3402 Jan, [place] [address] [place] [id number] [place] [address] 42481- 0981 Jan, Arthralgia M25.50 and Myalgia M79.1 [place] [address] [place] [id number] [place] [address] 23217- 1889 Jan, Need for prophylaxis against urinary tract infection Z29.8 and Urinary tract infection, site not specified N39.0 [place] [id number] [place] [address] 95646- 5818 Dec, Urinary tract infection, site not specified N39.0 and Need for prophylaxis against urinary tract infection Z29.8 [facility] [id number] [place] [address] 79455- 3363 Dec, Major depressive disorder, single episode, unspecified F32.9 ; Myalgia M79.1 ; Arthralgia M25.50 and 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 [facility] [address] [place] [address] 76797- 1489 Dec, Other chronic pain G89.29 and Dysuria R30.0 [place] [address] [place] [id number] [place] [address] 96340- 8673 Nov, 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 [facility] [address] [place] [id number] [place] [address] 75362- 6150 Nov, Acute midline low back pain without sciatica M54.5 and 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 [facility] [address] [place] [id number] [place] [address] 08558- 3928 Nov, [facility] [address] [place] [id number] [place] [address] 12745- 2971 October, [facility] [address] [place] [id number] [place] [address] 65654- 4600 October, [facility] [address] [place] [id number] [place] [address] 53364- 4592 Sep, Right leg pain M79.604 [facility] [address] [place] [id number] [place] [address] 69360- 6769 Sep, [facility] [address] [place] [address] [id number] [place] [address] 41971- 8975 Aug, Right leg pain M79.604 [facility] [address] [place] [id number] [place] [address] 26805- 4921 Jul, [facility] [address] [place] [id number] [place] [address] 42958- 7437 Jul, Arthralgia M25.50 and Right leg pain M79.604 [facility] [id number] [place] [address] 04234- 4955 Jun, Arthralgia M25.50 [facility] [address] [place] [id number] [place] [address] 71939- 6316 Jun, [facility] [address] [place] [address] [id number] [place] [address] 40527- 2430 Jun, Right leg pain M79.604 [place] [address] [place] [id number] [place] [address] 84693- 9744 Jun, Right leg pain M79.[address] 18985- 4404 Jun, Abnormal mammogram of left breast R92.[address] 79205- 9289 May, Routine gynecological examination V72.31 ; Breast cancer screening Z12.39 ; Cervical cancer screening Z12.4 ; Colon cancer screening Z12.11 and Calculus of gallbladder without cholecystitis without obstruction K80.[address] 60113- 3370 May, Arthralgia M25.[address] 40295- 4109 Apr, Arthralgia M25.[address] 10976- 0823 Apr, Screening, lipid Z13.[address] 44797- 8085 14 Apr, 2016 Other chronic pain G89.29 ; Scoliosis, unspecified scoliosis type, unspecified spinal region M41.9 ; Right leg pain M79.604 ; Major depressive disorder, single episode, unspecified F32.9 ; Fatigue due to exposure, subsequent encounter T73.2XXD ; Dysthymia F34.1 and Screening, lipid Z13.220 [place] [id number] [place] [address] 80668- 0731 Apr, Arthralgia M25.[address] 15063- 6641 Mar, Dysthymia [address] 64706- 5602 Mar, Arthralgia M25.[address] [place] [id number] [address]- 7353 Feb, Arthralgia M25.50 [facility] [address] [place] [id number] [place] [address] 22667- 1667 Jan, Arthralgia M25.50 [facility] [address] [place] [address] [id number] [place] [address] 87957- 7883 Dec, 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 [facility] [address] [place] [id number] [place] [address] 90108- 3953 Dec, [facility] [address] [place] [id number] [place] [address] 83984- 7086 Dec, Right leg pain M79.604 and Scoliosis, unspecified scoliosis type, unspecified spinal region M41.9 [facility] [address] [place] [id number] [place] [address] 44010- 9348 Dec, Right leg pain M79.604 and Scoliosis, unspecified scoliosis type, unspecified spinal region M41.9 [facility] [address] [place] [id number] [place] [address] 30709- 9311 Dec, Arthralgia M25.50 [facility] [address] [place] [id number] [place] [address] 09152- 6983 Nov, Arthralgia M25.50 [facility] [address] [place] [id number] [place] [address] 30727- 4874 October, Arthralgia M25.50 and Scoliosis, unspecified scoliosis type , unspecified spinal region M41.9 [facility] [id number] [place] [address] 47905- 8248 Sep, [facility] [address] [place] [id number] [place] [address] 94422- 9532 Aug, [facility] [id number] [place] [address] 17912- 7213 Aug, Arthralgia M25.50 ; Myalgia M79.1 and Scoliosis M41.9 [facility] [address] [place] [id number] [place] [address] 11208- 5558 Jul, Other chronic pain G89.29 [facility] [address] [place] [address] [id number] [place] [address] 14881- 4747 Jul, Other chronic pain G89.29 [facility] [address] 46313- 8381 Jul, Impingement syndrome of both shoulders M75.41 [facility] [address] [place] [id number] [place] [address] 80579- 7960 Jun, [facility] [address] [place] [id number] [place] [address] 70430- 4720 Jun, [facility] [address] [place] [id number] [place] [address] 07917- 6377 Jun, Scoliosis (and kyphoscoliosis), idiopathic M41.20 and Other chronic pain G89.29 [facility] [address] [place] [id number] [place] [address] 14238 -3345 Jun, Upper respiratory tract infection, unspecified type 465.9 and Rhinorrhea J34.89 [facility] [address] [place] [id number] [place] [address] 70354- 9499 May, [facility] [address] [place] [id number] [place] [address] 62599- 0049 May, [facility] [address] [place] [id number] [place] [address] 99301- 5150 Apr, Dysuria R30.0 ; Urinary tract infection, site not specified N39.0 and Hematuria, unspecified R31.9 [facility] [address] [place] [address] [id number] [place] [address] 87091- 7204 Apr, [facility] [address] [id number] [place] [address] 06762- 9571 Mar, Family history of early CAD Z82.49 [facility] [address] [place] [id number] [place] [address] 97155- 9310 Mar, Other chronic pain G89.29 [facility] [address] 05015- 9196 Mar, Impingement syndrome of both shoulders M75.41 [facility] [address] [place] [id number] [place] [address] 15166- 1750 Mar, Other chronic pain G89.29 ; Dysthymia F34.1 ; Family history of early CAD Z82.49 ; Dysuria R30.0 and Other specified disorders of Eustachian tube, right ear H69.81 [facility] [address] [place] [id number] [place] [address] 31952- 6608 Mar, [facility] [address] 59410- 3395 Feb, [facility] [address] 48080- 5588 Jan, [facility] [address] 35849- 5889 Jan, Eustachian tube dysfunction 381.81 and Dysthymia 300.4 [facility] [id number] [place] [address] 77648- 3122 Dec, [facility] [id number] [place] [address] 12556- 5216 Nov, Impingement syndrome of both shoulders 726.2 [facility] [id number] [place] [address] 61482- 9972 Nov, [facility] [address] 44498- 4106 Nov, [facility] [address] [place] [id number] [place] [address] 24836- 4577 Nov, Urgency of urination 788.63 [facility] [address] [place] [address]- 1486 October, [facility] [place] [facility] [address] [id number] [place] [address]- 5772 October, [facility] [place] [facility] [address] [id number] [place] [address]- 8275 Sep, [facility] [place] [facility] [address] [id number] [place] [address]- 3671 Sep, [facility] [place] [facility] [address] [id number] [place] [address]- 6386 Aug, [facility] [place] [facility] [address] [id number] [place] [address]- 9998 Aug, [facility] [place] [facility] [address] [id number] [place] [address]- 3930 Aug, [facility] [place] [facility] [address] [id number] [place] [address]- 1193 Aug, [facility] [place] [facility] [address] [id number] [place] [address]- 1053 Aug, [facility] [place] [facility] [address] [id number] [place] [address]- 5787 Aug, [facility] [place] [facility] [address] [facility] [id number] [place] [address]- 9157 Aug, [facility] [place] [facility] [address] [id number] [place] [address]- 1294 Jul, [facility] [place] [facility] [address] [id number] [place] [address]- 9776 Jul, [facility] [place] [facility] [address] [id number] [place] [address]- 9163 Jul, [facility] [place] [facility] [address] [facility] [id number] [place] [address]- 7791 Jul, [facility] [place] [facility] [address] [facility] [id number] [place] [address]- 6892 Jul, [facility] [place] [facility] [address] [id number] [place] [address]- 1818 Jul, [facility] [place] [facility] [address] [id number] [place] [address]- 2765 Jun, [facility] [place] [facility] [address] [id number] [place] [address]- 5022 Jun, [facility] [place] [facility] [address] [id number] [place] [address]- 9859 May, [facility] [place] [facility] [address] [id number] [place] [address]- 4961 May, [facility] [place] [facility] [address] [id number] [place] [address]- 6396 May, [facility] [place] [facility] [address] [id number] [place] [address]- 0558 May, [facility] [place] [facility] [address] [id number] [place] [address]- 1015 Mar, [facility] [place] [facility] [address] [id number] [place] [address]- 9692 Mar, [facility] [place] [facility] [address] [id number] [place] [address]- 6051 Feb, [facility] [place] [facility] [address] [id number] [place] [address]- 2075 Feb, [facility] [place] [facility] [address] [id number] [place] [address]- 7413 Jan, [facility] [place] [facility] [address] [id number] [place] [address]- 8950 Jan, [facility] [place] [facility] [address] [id number] [place] [address]- 0704 Jan, [facility] [place] [facility] [address] [id number] [place] [address]- 4685 Jan, [facility] [place] [facility] [address] [id number] [place] [address]- 8652 Jan, [facility] [place] [facility] [address] [id number] [place] [address]- 2066 Nov, [facility] [place] [facility] [address] [id number] [place] [address]- 0789 Nov, [facility] [place] [facility] [address] [id number] [place] [address]- 9400 October, [facility] [place] [facility] [address] [id number] [place] [address]- 7527 October, [facility] [place] [facility] [address] [id number] [place] [address]- 1273 October, [facility] [place] [facility] [address] [id number] [place] [address]- 6151 October, [facility] [place] [facility] [address] [id number] [place] [address]- 0971 Sep, [facility] [place] [facility] [address] [id number] [place] [address]- 5128 Aug, [facility] [place] [facility] [address] [id number] [place] [address]- 4481 Aug, [facility] [place] [facility] [address] [id number] [place] [address]- 7141 Aug, [facility] [place] [facility] [address] [id number] [place] [address]- 4135 Aug, [facility] [place] [facility] [address] [id number] [place] [address]- 5020 Jul, [facility] [place] [facility] [address] [id number] [place] [address]- 0209 Jul, [facility] [place] [facility] [address] [id number] [place] [address]- 0877 Jun, [facility] [place] [facility] [address] [id number] [place] [address]- 8122 Jun, [facility] [place] [facility] [address] [id number] [place] [address]- 6814 Jun, [facility] [place] [facility] [address] [id number] [place] [address]- 3751 Jun, [facility] [place] [facility] [address] [id number] [place] [address]- 3333 Jun, [facility] [place] [facility] [address] [id number] [place] [address]- 1014 Jun, [facility] [place] [facility] [address] [id number] [place] [address]- 8501 Mar, [facility] [place] [facility] [address] [id number] [place] [address]- 5154 Mar, [facility] [place] [facility] [address] [id number] [place] [address]- 7717 Feb, [facility] [place] [facility] [address] [id number] [place] [address]- 1992 Feb, [facility] [place] [facility] [address] [id number] [place] [address]- 2471 Feb, [facility] [place] [facility] [address] [id number] [place] [address]- 2293 Jan, [facility] [place] [facility] [address] [id number] [place] [address]- 0090 Jan, [facility] [place] [facility] [address] [id number] [place] [address]- 1792 Dec, [facility] [place] [facility] [address] [id number] [place] [address]- 9531 Nov, [facility] [place] [facility] [address] [id number] [place] [address]- 4768 Sep, [facility] [place] [facility] [address] [id number] [place] [address]- 3163 Aug, [facility] [place] [facility] [address] [id number] [place] [address]- 4506 Aug, [facility] [address] [id number] [place] [address]- 8060 Aug, [facility] [place] [facility] [address] [id number] [place] [address]- 6386 Jul, [facility] [address] [id number] [place] [address]- 9886 Jul, [facility] [place] [facility] [address] [id number] [place] [address]- 9041 Jul, [facility] [address] [id number] [place] [address]- 5517 Jul, [facility] [address] [id number] [place] [address]- 0354 Jul, [facility] [address] [facility] [id number] [place] [address]- 7641 Apr, [facility] [address] [id number] [place] [address]- 7551 Apr, [facility] [address] [facility] [id number] [place] [address] Jan, [facility] [address] [facility] [id number] [place] [address] Jan, [facility] [address] [facility] [id number] [place] [address] Dec, [facility] [place] [facility] [address] [id number] [place] [address] Dec, [facility] [place] [facility] [address] [id number] [place] [address] Dec, [facility] [place] [facility] [address] [facility] [id number] [place] [address] Dec, [facility] [place] [facility] [address] [facility] [id number] [place] [address] Dec, [facility] [place] [facility] [address] [place] [address] October, [facility] [address], [place] [address] Aug, [facility] [address] [facility] [id number], [place] [address] Aug, [facility] [address] [place] [address] Aug, [facility] [address] [facility] [id number], [place] [address] Jul, [facility] [id number] [place] [address] May, [facility] [address], [place] [address] Apr, [facility] [address], [place] [address] May, [facility] [address], [place] [address] May, [facility] [address], [place] [address] May, [facility] [address], [place] [address] Mar, [facility] [address], [place] [address] Mar, [facility] [id number], [place] [address] Aug, IMMUNIZATIONS No Known Immunizations SOCIAL HISTORY Never Assessed REASON FOR VISIT Controlled Med Refill 01/19/2017 PLAN OF CARE VITAL SIGNS MEDICATIONS Medication Instructions Dosage Frequency Start Date End Date Duration Status Fluoxetine HCl 40 mg Orally Once a day 1 capsule 24h Dec, 30 days Active Hydrocodone-Acetaminophen 10-325 MG Orally 5 [...]
--- OUTSIDE RECORDS SUMMARY | 2018-06-07 13:34 | XMS REPORT ---
Author Author CHUY NGUYEN Organization [facility] [place] Address [address] [place] [address] Care Team Providers Care Manager Database Name Role Phone CHUY NGUYEN Unavailable PROBLEMS Type Condition ICD9-CM Code RKS39-GS Code Onset Dates Condition Status SNOMED Code Problem Scoliosis (and kyphoscoliosis), idiopathic M41.20 Active 18876055 Problem Myalgia M79.1 Active 37045942 Problem Other chronic pain G89.29 Active 09773040 Problem Urinary urgency R39.15 Active 15094005 Problem Dysthymia F34.1 Active 02454690 Problem Varicose veins I86.8 Active 127043663 Problem Need for prophylaxis against urinary tract infection Z29.8 Active 582372814 Problem Abnormal mammogram of left breast R92.8 Active 166241358 Problem Scoliosis, unspecified scoliosis type, unspecified spinal region M41.9 Active 520656172 Problem Arthralgia M25.50 Active 98735798 Problem Calculus of gallbladder without cholecystitis without obstruction K80.20 Active 198486981 Problem Major depressive disorder, single episode, unspecified F32.9 Active 83129232 ALLERGIES No Information ENCOUNTERS Encounter Location Date Diagnosis [facility] [place] [id number] [place] [address] 33284- 8502 October, Other chronic pain G89.29 and Myalgia M79.1 [facility] [place] [id number] [address] 9268 Sep, Other chronic pain G89.29 [facility] [place] [id number] [place] [address] 55234- 0875 Aug, Other chronic pain G89.29 [facility] [place] [id number] [place] [address] 38252- 7176 Aug, Scoliosis (and kyphoscoliosis), idiopathic M41.20 [facility] [place] [id number] [address] 3153 Aug, [place] [id number] [place] [address] 20706- 4260 12 Aug, 2017 Dysuria R30.0 ; Scoliosis, unspecified scoliosis type, unspecified spinal region M41.9 ; Encounter for therapeutic drug level monitoring Z51.81 and Alcohol use Z78.9 [place] [id number] [place] [address] 40885- 5648 07 Aug, 2017 Other chronic pain G89.29 [place] [id number] [place] [address] 79206- 5012 23 Jul, 2017 Chronic urinary tract infection N39.0 [place] [id number] [place] [address] 78854- 0504 07 Jul, 2017 Other chronic pain G89.29 [place] [id number] [place] [address] 33735- 7127 Jun, [place] [id number] [place] [address] 61464- 5340 Jun, [place] [id number] [place] [address] 29726- 4634 Jun, Acute left-sided thoracic back pain M54.6 [facility] [id number] [place] [address] 46080 -9928 18 Jun, 2017 Cough R05 and Acute bilateral thoracic back pain M54.6 [facility] [id number] [place] [address] 08331 -9646 15 Jun, 2017 Back pain, unspecified back location, unspecified back pain laterality, unspecified chronicity M54.9 and Left flank pain R10.9 [place] [id number] [place] [address] 27231- 3615 Jun, Other chronic pain G89.29 [place] [id number] [place] [address]- 5825 Jun, Myalgia M79.1 [place] [id number] [place] [address] 96714- 9566 May, Other chronic pain G89.29 [place] [id number] [place] [address] 56972- 3440 May, Myalgia M79.1 and Fatigue due to exposure, subsequent encounter T73.2XXD [place] [id number] [place] [address] 56479- 3314 05 May, 2017 Fatigue due to exposure, subsequent encounter T73.2XXD [place] [address] 19138- 0862 15 Apr, 2017 Other chronic pain G89.29 and Myalgia M79.1 [place] [address] 03532- 7778 08 Apr, 2017 Closed nondisplaced fracture of phalanx of left great toe with routine healing, unspecified phalanx, subsequent encounter S92.405D ; Dysuria R30.0 ; Localized edema R60.0 and Arthralgia M25.50 [place] [id number] [place] [address] 00046- 3980 Mar, Other chronic pain G89.29 and Myalgia M79.1 [place] [id number] [place] [address] 00105- 9920 Mar, [place] [id number] [place] [address] 25361- 4996 Mar, Dysuria R30.0 ; Other chronic pain G89.29 ; Scoliosis, unspecified scoliosis type, unspecified spinal region M41.9 and Chronic urinary tract infection N39.0 [place] [id number] [place] [address] 74321- 2898 Feb, Arthralgia M25.50 and Myalgia M79.1 [place] [address] [address]- 9122 Feb, [facility] [place] [address] [address]- 9439 Feb, [facility] [place] [address] [address]- 6217 Feb, Closed compression fracture of L4 lumbar vertebra with routine healing, subsequent encounter S32.040D ; Closed nondisplaced fracture of phalanx of left great toe with routine healing, unspecified phalanx, subsequent encounter S92.405D and Chronic urinary tract infection N39.0 [facility] [place] [id number] [place] [address] 97311- 9863 Jan, Closed compression fracture of fourth lumbar vertebra, initial encounter S32.040A [place] [address] [address]- 5556 Jan, Urinary tract infection, site not specified N39.0 [facility] [place] [address] [address]- 4078 Jan, [facility] [place] [id number] [place] [address] 04556- 1033 Jan, [facility] [place] [address] [address]- 8752 Jan, Arthralgia M25.50 and Myalgia M79.1 [facility] [place] [address] [address]- 0417 Jan, Need for prophylaxis against urinary tract infection Z29.8 and Urinary tract infection, site not specified N39.0 [facility] [place] [address] [address]- 2019 Dec, Urinary tract infection, site not specified N39.0 and Need for prophylaxis against urinary tract infection Z29.8 [facility] [place] [address] [address]- 2125 Dec, Major depressive disorder, single episode, unspecified F32.9 ; Myalgia M79.1 ; Arthralgia M25.50 and penitentiary 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 Z79.891 [facility] [place] [id number] [place] [address] 04408- 1273 Dec, Other chronic pain G89.29 and Dysuria R30.0 [facility] [place] [address] 66227- 9264 Nov, 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 [facility] [place] [id number] [place] [address] 97808- 2734 Nov, Acute midline low back pain without sciatica M54.5 and 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 [place] [id number] [place] [address] 72064- 3371 Nov, [place] [address] 06216- 4330 October, [facility] [place] [address] 83683- 5392 October, [place] [address] 26886- 9945 Sep, Right leg pain M79.604 [place] [id number] [place] [address] 70465- 2145 Sep, [facility] [place] [id number] [place] [address] 32057- 9023 Aug, Right leg pain M79.604 [facility] [place] [address] 63731- 1076 Jul, [place] [address] 01266- 4693 Jul, Arthralgia M25.50 and Right leg pain M79.604 [place] [address] 43795- 3400 Jun, Arthralgia M25.50 [place] [id number] [place] [address] 15102- 3333 Jun, [place] [id number] [place] [address] 44239- 3440 Jun, Right leg pain M79.604 [place] [id number] [place] [address] 90771- 0491 Jun, Right leg pain M79.604 [place] [id number] [place] [address] 93138- 4190 Jun, Abnormal mammogram of left breast R92.[address] 72970- 9709 May, Routine gynecological examination V72.31 ; Breast cancer screening Z12.39 ; Cervical cancer screening Z12.4 ; Colon cancer screening Z12.11 and Calculus of gallbladder without cholecystitis without obstruction K80.20 [place] [id number] [place] [address] 80269- 7786 May, Arthralgia M25.[address] 98389- 4256 Apr, Arthralgia M25.50 [id number] [place] [address] 86688- 5091 Apr, Screening, lipid Z13.220 [id number] [place] [address] 01239- 6088 14 Apr, 2016 Other chronic pain G89.29 ; Scoliosis, unspecified scoliosis type, unspecified spinal region M41.9 ; Right leg pain M79.604 ; Major depressive disorder, single episode, unspecified F32.9 ; Fatigue due to exposure, subsequent encounter T73.2XXD ; Dysthymia F34.1 and Screening, lipid Z13.220 [id number] [place] [address] 08308- 7426 Apr, Arthralgia M25.50 [facility] [place] [address] [address]- 6957 Mar, Dysthymia 300.4 [facility] [place] [id number] [place] [address] 88708- 8288 Mar, Arthralgia M25.50 [facility] [place] [id number] [place] [address] 98806- 4235 Feb, Arthralgia M25.50 [facility] [place] [id number] [place] [address] 43014- 2483 Jan, Arthralgia M25.50 [facility] [place] [id number] [place] [address] 20502- 6412 Dec, 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 [place] [id number] [place] [address] 05280- 9587 Dec, [facility] [place] [id number] [place] [address] 06519- 9543 Dec, Right leg pain M79.604 and Scoliosis, unspecified scoliosis type, unspecified spinal region M41.9 [place] [id number] [place] [address] 76705- 7693 Dec, Right leg pain M79.604 and Scoliosis, unspecified scoliosis type, unspecified spinal region M41.9 [facility] [place] [id number] [place] [address] 35153- 2049 Dec, Arthralgia M25.50 [facility] [place] [id number] [place] [address] 98584- 1213 Nov, Arthralgia M25.50 [facility] [place] [id number] [place] [address] 03210- 4796 October, Arthralgia M25.50 and Scoliosis, unspecified scoliosis type , unspecified spinal region M41.9 [facility] [place] [id number] [place] [address] 41828- 1228 Sep, [facility] [place] [id number] [place] [address] 18789- 9731 Aug, [place] [id number] [place] [address] 82020- 2642 Aug, Arthralgia M25.50 ; Myalgia M79.1 and Scoliosis M41.9 [place] [id number] [place] [address] 06984- 8281 Jul, Other chronic pain G89.29 [place] [id number] [place] [address] 37282- 0387 Jul, Other chronic pain G89.29 [place] [id number] [place] [address] 69995- 8263 Jul, Impingement syndrome of both shoulders M75.41 [place] [id number] [place] [address] 45547- 8330 Jun, [place] [id number] [place] [address] 82851- 9119 Jun, [place] [id number] [place] [address] 54644- 9834 Jun, Scoliosis (and kyphoscoliosis), idiopathic M41.20 and Other chronic pain G89.29 [facility] [id number] [place] [address] 99355 -2742 Jun, Upper respiratory tract infection, unspecified type 465.9 and Rhinorrhea J34.89 [facility] [place] [id number] [place] [address] 92775- 6623 May, [place] [address] 19015- 2977 May, [place] [id number] [place] [address] 43920- 2862 Apr, Dysuria R30.0 ; Urinary tract infection, site not specified N39.0 and Hematuria, unspecified R31.9 [facility] [place] [id number] [place] [address] 53402- 0047 Apr, [facility] [place] [id number] [place] [address] 069572- 5232 Mar, Family history of early CAD Z82.49 [place] [address] 31795- 8688 Mar, Other chronic pain G89.29 [place] [id number] [place] [address] 96919- 6160 Mar, Impingement syndrome of both shoulders M75.41 [place] [id number] [place] [address] 68049- 5362 Mar, Other chronic pain G89.29 ; Dysthymia F34.1 ; Family history of early CAD Z82.49 ; Dysuria R30.0 and Other specified disorders of Eustachian tube, right ear H69.81 [place] [id number] [place] [address] 45774- 3806 Mar, [facility] [place] [id number] [place] [address] 46469- 1354 Feb, [facility] [place] [id number] [place] [address] 21320- 0936 Jan, [facility] [place] [id number] [place] [address] 25039- 7423 Jan, Eustachian tube dysfunction 381.81 and Dysthymia 300.4 [facility] [place] [id number] [place] [address] 10736- 7194 Dec, [facility] [place] [id number] [place] [address] 85089- 2476 Nov, Impingement syndrome of both shoulders 726.2 [facility] [place] [id number] [place] [address] 58167- 2719 Nov, [facility] [address] [id number] [place] [address]- 0247 Nov, [facility] [address] [facility] [id number] [place] [address]- 4437 Nov, Urgency of urination 788.63 [facility] [address] [facility] [id number] [place] [address]- 9196 October, [facility] [address] [id number] [place] [address]- 7436 October, [facility] [address] [id number] [place] [address]- 3301 Sep, [facility] [place] [facility] [address] [facility] [id number] [place] [address]- 3256 Sep, [facility] [id number] [place] [address]- 4148 Aug, [facility] [place] [facility] [address] [id number] [place] [address]- 6566 Aug, [facility] [place] [facility] [address] [id number] [place] [address]- 1999 Aug, [facility] [place] [facility] [address] [facility] [id number] [place] [address]- 3058 Aug, [facility] [place] [facility] [id number] [place] [address]- 1238 Aug, [facility] [place] [facility] [address] [id number] [place] [address] 2542 Aug, [facility] [place] [facility] [address] [id number] [place] [address] 2546 Aug, [facility] [place] [facility] [address] [facility] [id number] [place] [address]- 5126 Jul, [facility] [place] [facility] [id number] [place] [address]- 4866 Jul, [facility] [place] [facility] [address] [facility] [id number] [place] [address]- 7889 Jul, 2014 [facility] [place] [facility] [address] [id number] [place] [address]- 7269 Jul, 2014 [facility] [place] [facility] [address] [id number] [place] [address]- 4186 Jul, 2014 [facility] [place] [facility] [address] [id number] [place] [address]- 9206 Jul, 2014 [facility] [place] [facility] [address] [id number] [place] [address]- 7637 Jun, [facility] [place] [facility] [address] [id number] [place] [address]- 9681 Jun, [facility] [place] [facility] [address] [facility] [id number] [place] [address]- 4776 May, [facility] [place] [facility] [address] [id number] [place] [address]- 4782 May, [facility] [place] [facility] [address] [id number] [place] [address]- 1664 May, [facility] [place] [facility] [address] [facility] [id number] [place] [address]- 7291 May, [facility] [place] [facility] [address] [facility] [id number] [place] [address]- 3720 Mar, [facility] [place] [facility] [address] [facility] [id number] [place] [address]- 2898 Mar, [facility] [place] [facility] [address] [id number] [place] [address]- 9150 Feb, [facility] [place] [facility] [address] [id number] [place] 8777 Feb, [facility] [place] [facility] [address] [facility] [id number] [place] [address]- 9600 Jan, [facility] [place] [facility] [address] [facility] [id number] [place] [address]- 1817 Jan, [facility] [place] [facility] [address] [id number] [place] [address]- 5672 Jan, [facility] [place] [facility] [address] [id number] [place] [address]- 4370 Jan, [facility] [place] [facility] [address] [id number] [place] [address]- 6874 Jan, [facility] [place] [facility] [address] [id number] [place] [address]- 6643 Nov, [facility] [place] [facility] [address] [id number] [place] [address]- 7272 Nov, [facility] [place] [facility] [address] [id number] [place] [address]- 4120 October, [facility] [place] [facility] [address] [id number] [place] [address]- 5223 October, [facility] [place] [facility] [address] [id number] [place] [address]- 7167 October, [facility] [place] [facility] [address] [id number] [place] [address]- 1909 October, [facility] [place] [facility] [address] [id number] [place] [address]- 6974 Sep, [facility] [place] [facility] [address] [id number] [place] [address]- 2756 Aug, [facility] [place] [facility] [address] [id number] [place] [address]- 9560 Aug, [facility] [place] [facility] [address] [id number] [place] [address]- 9842 Aug, [facility] [place] [facility] [address] [id number] [place] [address]- 4769 Aug, [facility] [place] [facility] [address] [id number] [place] [address]- 2925 Jul, [facility] [place] [facility] [address] [id number] [place] [address]- 0318 Jul, [facility] [address] [id number] [place] [address]- 0241 Jun, [facility] [place] [facility] [address] [id number] [place] [address]- 8522 Jun, [facility] [place] [facility] [address] [id number] [place] [address]- 1503 Jun, [facility] [place] [facility] [address] [id number] [place] [address]- 1643 Jun, [facility] [place] [facility] [address] [id number] [place] [address]- 3632 Jun, [facility] [place] [facility] [address] [id number] [place] [address]- 2898 Jun, [facility] [address] [id number] [place] [address]- 0089 Mar, [facility] [place] [facility] [address] [id number] [place] [address]- 5556 Mar, [facility] [place] [facility] [address] [id number] [place] [address]- 1064 Feb, [facility] [place] [facility] [address] [id number] [place] [address]- 0388 Feb, [facility] [place] [facility] [address] [id number] [place] [address]- 4532 09 Feb, 2013 [facility] [place] [facility] [address] [id number] [place] [address]- 1765 Jan, [facility] [place] [facility] [address] [id number] [place] [address]- 3737 15 Jan, 2013 [facility] [place] [facility] [address] [id number] [place] [address] 2547 Dec, [facility] [place] [facility] [address] [id number] [place] [address]- 7940 Nov, [facility] [place] [facility] [address] [id number] [place] [address] Sep, [facility] [place] [facility] [address] [id number] [place] [address] Aug, [facility] [address] [id number] [place] [address] Aug, [facility] [place] [facility] [address] [id number] [place] [address] Aug, [facility] [address] [id number] [place] [address] Jul, [facility] [place] [facility] [address] [id number] [place] [address] Jul, [facility] [address] [id number] [place] [address] Jul, [facility] [address] [id number] [place] [address] Jul, [facility] [address] [id number] [place] [address] Jul, [facility] [address] [id number] [place] [address] Apr, [facility] [address] [id number] [place] [address] Apr, [facility] [place] [facility] [address] [id number] [place] [address] Jan, [facility] [place] [facility] [address] [id number] [place] [address] Jan, [facility] [place] [facility] [address] [id number] [place] [address] Dec, [facility] [place] [facility] [address] [id number] [place] [address] Dec, [facility] [place] [facility] [address] [facility] [id number] [place] [address] Dec, [facility] [address] [id number] [place] [address] Dec, [facility] [address] [facility] [id number] [place] [address] Dec, [facility] [address] [facility] [id number] [place] [address] October, [facility] [address] [facility] [id number] [place] [address] Aug, [facility] [address] [facility] [id number] [place] [address] Aug, [facility] [address] [facility] [id number] [place] [address] Aug, [facility] [address] [facility] [id number] [place] [address] Jul, [facility] [address] [facility] [id number] [place] [address] May, [facility] [address] [facility] [id number] [place] [address] Apr, [facility] [address] [facility] [id number] [place] [address] May, [facility] [id number] [place] [address] May, [facility] [address] [facility] [id number] [place] [address] May, [facility] [address] [facility] [id number] [place] [address] Mar, [facility] [address] [facility] [id number] [place] [address] Mar, [facility] [address] [facility] [id number] [address] Aug, IMMUNIZATIONS No Known Immunizations SOCIAL HISTORY Never Assessed REASON FOR VISIT Controlled Med Refill 06/08/17 PLAN OF CARE VITAL SIGNS MEDICATIONS Medication Instructions Dosage Frequency Start Date End Date Duration Status Percocet 10-325 MG Orally 5 times per day 1 tablet as needed May, 28 days Active RESULTS No Results PROCEDURES No Known procedures INSTRUCTIONS MEDICATIONS ADMINISTERED No Known Medications MEDICAL (GENERAL) HISTORY Type Description Date Medical History chronic pain Medical History arthritis Surgical History Nephrectomy - age 3 Surgical History Appendectomy Hospitalization History surgery Hospitalization History childbirth x 3
--- OUTSIDE RECORDS SUMMARY | 2018-06-07 13:35 | XMS REPORT ---
Author Author LEXI BARR [facility] Address [address] [place] [address] Care Team Providers Care Bulb Weeder Name Role Phone LEXI BARR Unavailable PROBLEMS Type Condition ICD9-CM Code [id number] Code Onset Dates Condition Status SNOMED Code Problem Scoliosis (and kyphoscoliosis), idiopathic M41.20 Active 45875738 Problem Myalgia M79.1 Active 43066166 Problem Other chronic pain G89.29 Active 51444310 Problem Urinary urgency R39.15 Active 93709472 Problem Dysthymia F34.1 Active 80454524 Problem Varicose veins I86.8 Active 107664622 Problem Need for prophylaxis against urinary tract infection Z29.8 Active 178454589 Problem Abnormal mammogram of left breast R92.8 Active 119316413 Problem Scoliosis, unspecified scoliosis type, unspecified spinal region M41.9 Active 418640238 Problem Arthralgia M25.50 Active 52978188 Problem Calculus of gallbladder without cholecystitis without obstruction K80.20 Active 217154230 Problem Major depressive disorder, single episode, unspecified F32.9 Active 28864334 ALLERGIES No Information ENCOUNTERS Encounter Location Date Diagnosis [place] [id number] [place] [address] 57265- 2728 30 Aug, 2017 Other chronic pain G89.29 [facility] [id number] [place] [address] 41166- 7653 Aug, Scoliosis (and kyphoscoliosis), idiopathic M41.20 [facility] [id number] [place] [address] 49791- 2661 Aug, [facility] [id number] [place] [address] 28631- 1046 12 Aug, 2017 Dysuria R30.0 ; Scoliosis, unspecified scoliosis type, unspecified spinal region M41.9 ; Encounter for therapeutic drug level monitoring Z51.81 and Alcohol use Z78.9 [facility] [id number] [place] [address] 20603- 5032 Aug, Other chronic pain G89.29 [facility] [id number] [place] [address] 72105- 3561 Jul, Chronic urinary tract infection N39.0 [facility] [id number] [place] [address] 20655- 6810 Jul, Other chronic pain G89.29 [facility] [id number] [place] [address] 07986- 8003 Jun, [facility] [id number] [place] [address] 58102- 3682 Jun, [facility] [address] 52418- 1259 Jun, Acute left-sided thoracic back pain M54.6 [facility] [id number] [place] [address] 76777 -4057 18 Jun, 2017 Cough R05 and Acute bilateral thoracic back pain M54.6 [facility] [id number] [place] [address] 43966 -5388 15 Jun, 2017 Back pain, unspecified back location, unspecified back pain laterality, unspecified chronicity M54.9 and Left flank pain R10.9 [facility] [id number] [place] [address] 69420- 1437 Jun, Other chronic pain G89.29 [facility] [id number] [place] [address] 89985- 1787 Jun, Myalgia M79.1 [facility] [id number] [place] [address] 83167- 7742 May, Other chronic pain G89.29 [facility] [id number] [place] [address] 07553- 8612 May, Myalgia M79.1 and Fatigue due to exposure, subsequent encounter T73.2XXD [place] [id number] [place] [address] 94481- 9477 05 May, 2017 Fatigue due to exposure, subsequent encounter T73.2XXD [place] [address] [id number] [place] [address] 93249- 9195 15 Apr, 2017 Other chronic pain G89.29 and Myalgia M79.1 [place] [address] 77817- 5740 Apr, Closed nondisplaced fracture of phalanx of left great toe with routine healing, unspecified phalanx, subsequent encounter S92.405D ; Dysuria R30.0 ; Localized edema R60.0 and Arthralgia M25.50 [place] [address] 25605- 0790 Mar, Other chronic pain G89.29 and Myalgia M79.1 [place] [address] [place] [id number] [place] [address] 48495- 5472 Mar, [place] [address] 29224- 9110 Mar, Dysuria R30.0 ; Other chronic pain G89.29 ; Scoliosis, unspecified scoliosis type, unspecified spinal region M41.9 and Chronic urinary tract infection N39.0 [place] [address] [place] [place] [id number] [place] [address] 86148- 5866 Feb, Arthralgia M25.50 and Myalgia M79.1 [place] [address] 59908- 4761 13 Feb, 2017 [place] [address] [place] [id number] [place] [address] 64113- 1272 Feb, [place] [address] [place] [id number] [place] [address] 78164- 9201 Feb, Closed compression fracture of L4 lumbar vertebra with routine healing, subsequent encounter S32.040D ; Closed nondisplaced fracture of phalanx of left great toe with routine healing, unspecified phalanx, subsequent encounter S92.405D and Chronic urinary tract infection N39.0 [facility] [address] [id number] [address] Jan, Closed compression fracture of fourth lumbar vertebra, initial encounter S32.040A [facility] [id number] [place] [address] 16345- 6458 Jan, Urinary tract infection, site not specified N39.0 [facility] [id number] [place] [address] 90452- 0907 Jan, [facility] [address] [id number] [place] [address] 51073- 2577 Jan, [facility] [address] [id number] [place] [address] 01386- 5501 Jan, Arthralgia M25.50 and Myalgia M79.1 [facility] [id number] [place] [address] 23220- 5359 Jan, Need for prophylaxis against urinary tract infection Z29.8 and Urinary tract infection, site not specified N39.0 [facility] [address] [id number] [address] 0805 Dec, Urinary tract infection, site not specified N39.0 and Need for prophylaxis against urinary tract infection Z29.8 [facility] [address] [id number] [place] [address] 32622- 7316 Dec, Major depressive disorder, single episode, unspecified F32.9 ; Myalgia M79.1 ; Arthralgia M25.50 and intermediate 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 Z79.891 [facility] [address] [place] [id number] [place] [address] 31033- 9987 Dec, Other chronic pain G89.29 and Dysuria R30.0 [facility] [address] [address] 7978 Nov, 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 [facility] [id number] [place] [address] 17463- 6546 Nov, Acute midline low back pain without sciatica M54.5 and intermediate 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 Z79.891 [facility] [id number] [place] [address] 48538- 6866 Nov, [facility] [id number] [place] [address] 78387- 0036 October, [facility] [id number] [place] [address] 41996- 0296 October, [facility] [id number] [place] [address] 16720- 3069 Sep, Right leg pain M79.604 [facility] [id number] [place] [address] 07219- 7934 Sep, [facility] [id number] [place] [address] 50418- 9813 Aug, Right leg pain M79.604 [facility] [id number] [place] [address] 07294- 8826 Jul, [facility] [id number] [place] [address] 13087- 0987 Jul, Arthralgia M25.50 and Right leg pain M79.604 [facility] [address] [address]- 3553 Jun, Arthralgia M25.50 [facility] [id number] [place] [address] 06925- 5846 Jun, [facility] [id number] [place] [address] 32544- 0313 Jun, Right leg pain M79.604 [facility] [id number] [place] [address] 10742- 5708 Jun, Right leg pain M79.[address] 72910- 7259 Jun, Abnormal mammogram of left breast R92.[address] 89279- 2873 May, Routine gynecological examination V72.31 ; Breast cancer screening Z12.39 ; Cervical cancer screening Z12.4 ; Colon cancer screening Z12.11 and Calculus of gallbladder without cholecystitis without obstruction K80.[address] 10185- 7859 May, Arthralgia M25.[address] 25771- 2536 Apr, Arthralgia M25.[address] 22917- 6152 Apr, Screening, lipid Z13.[address] 40926- 3480 14 Apr, 2016 Other chronic pain G89.29 ; Scoliosis, unspecified scoliosis type, unspecified spinal region M41.9 ; Right leg pain M79.604 ; Major depressive disorder, single episode, unspecified F32.9 ; Fatigue due to exposure, subsequent encounter T73.2XXD ; Dysthymia F34.1 and Screening, lipid Z13.220 [place] [address] [place] [id number] [place] [address] 67156- 6906 Apr, Arthralgia M25.[address] 55874- 8483 Mar, Dysthymia [address] 28055- 3087 Mar, Arthralgia M25.[id number] [place] [address] 37061- 4080 Feb, Arthralgia M25.50 [facility] [id number] [place] [address] 41263- 5792 Jan, Arthralgia M25.50 [facility] [id number] [place] [address] 07749- 9166 Dec, 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 [facility] [id number] [place] [address] 74694- 3061 Dec, [facility] [id number] [place] [address] 66752- 1088 Dec, Right leg pain M79.604 and Scoliosis, unspecified scoliosis type, unspecified spinal region M41.9 [facility] [id number] [place] [address] 01480- 4308 Dec, Right leg pain M79.604 and Scoliosis, unspecified scoliosis type, unspecified spinal region M41.9 [facility] [id number] [place] [address] 97976- 2118 Dec, Arthralgia M25.50 [facility] [address] [id number] [place] [address] 01064- 4662 Nov, Arthralgia M25.50 [facility] [address] [id number] [place] [address] 24468- 8643 October, Arthralgia M25.50 and Scoliosis, unspecified scoliosis type , unspecified spinal region M41.9 [facility] [address] [place] [id number] [address]- 7681 Sep, [facility] [address] [place] [id number] [place] [address] 75880- 1799 Aug, [facility] [id number] [place] [address] 23374- 5519 Aug, Arthralgia M25.50 ; Myalgia M79.1 and Scoliosis M41.9 [facility] [id number] [place] [address] 70919- 0906 Jul, Other chronic pain G89.29 [facility] [id number] [place] [address] 27397- 8431 Jul, Other chronic pain G89.29 [facility] [address] 08468- 8008 Jul, Impingement syndrome of both shoulders M75.41 [facility] [address] [place] [place] [id number] [place] [address] 28087- 1678 Jun, [facility] [address] 38964- 6069 Jun, [facility] [id number] [place] [address] 16843- 7834 Jun, Scoliosis (and kyphoscoliosis), idiopathic M41.20 and Other chronic pain G89.29 [facility] [id number] [place] [address] 37715 -7537 Jun, Upper respiratory tract infection, unspecified type 465.9 and Rhinorrhea J34.89 [facility] [id number] [place] [address] 11141- 5288 May, [facility] [id number] [place] [address] 12658- 2813 May, [facility] [id number] [place] [address] 05266- 4035 Apr, Dysuria R30.0 ; Urinary tract infection, site not specified N39.0 and Hematuria, unspecified R31.9 [facility] [id number] [place] [address] 85731- 9009 Apr, [facility] [id number] [place] [address] 53675- 0606 Mar, Family history of early CAD Z82.49 [facility] [id number] [place] [address] 57090- 4220 Mar, Other chronic pain G89.29 [facility] [id number] [place] [address] 33220- 3886 Mar, Impingement syndrome of both shoulders M75.41 [facility] [id number] [place] [address] 22862- 8608 Mar, Other chronic pain G89.29 ; Dysthymia F34.1 ; Family history of early CAD Z82.49 ; Dysuria R30.0 and Other specified disorders of Eustachian tube, right ear H69.81 [facility] [id number] [place] [address] 82167- 6160 Mar, [facility] [id number] [place] [address] 58450- 3650 Feb, [facility] [id number] [place] [address] 86696- 0704 Jan, [facility] [id number] [place] [address] 69989- 2924 Jan, Eustachian tube dysfunction 381.81 and Dysthymia 300.4 [facility] [id number] [place] [address] 43754- 2929 Dec, [facility] [id number] [place] [address] 89304- 7696 Nov, Impingement syndrome of both shoulders 726.2 [facility] [id number] [place] [address] 34409- 7686 Nov, [facility] [address] 39555- 8617 Nov, [facility] [id number] [place] [address] 86771- 9661 Nov, Urgency of urination 788.63 [facility] [address] [place] [address]- 6579 October, [facility] [place] [facility] [address] [id number] [place] [address]- 0891 October, [facility] [place] [facility] [address] [id number] [place] [address]- 4646 Sep, [facility] [place] [facility] [address] [id number] [place] [address]- 7639 Sep, [facility] [place] [facility] [address] [id number] [place] [address]- 6737 Aug, [facility] [place] [facility] [address] [id number] [place] [address]- 2970 Aug, [facility] [place] [facility] [address] [id number] [place] [address]- 9909 Aug, [facility] [place] [facility] [address] [id number] [place] [address]- 3700 Aug, [facility] [place] [facility] [address] [id number] [place] [address]- 6804 Aug, [facility] [place] [facility] [address] [id number] [place] [address]- 8663 Aug, [facility] [place] [facility] [address] [facility] [id number] [place] [address]- 7441 Aug, [facility] [place] [facility] [address] [id number] [place] [address]- 8290 Jul, [facility] [place] [facility] [address] [id number] [place] [address]- 1119 Jul, [facility] [place] [facility] [address] [id number] [place] [address]- 8407 Jul, [facility] [place] [facility] [address] [id number] [place] [address]- 1035 Jul, [facility] [place] [facility] [address] [id number] [place] [address]- 1424 Jul, [facility] [place] [facility] [address] [id number] [place] [address]- 1459 Jul, [facility] [place] [facility] [address] [id number] [place] [address]- 9776 Jun, [facility] [place] [facility] [address] [id number] [place] [address]- 7434 Jun, [facility] [place] [facility] [address] [id number] [place] [address]- 0216 May, [facility] [place] [facility] [address] [id number] [place] [address]- 4240 May, [facility] [place] [facility] [address] [id number] [place] [address]- 2801 May, [facility] [place] [facility] [address] [id number] [place] [address]- 3319 May, [facility] [place] [facility] [address] [id number] [place] [address]- 2915 Mar, [facility] [place] [facility] [address] [id number] [place] [address]- 1413 Mar, [facility] [place] [facility] [address] [id number] [place] [address]- 9660 Feb, [facility] [place] [facility] [address] [id number] [place] [address]- 1412 Feb, [facility] [place] [facility] [address] [id number], [place] [address]- 3546 Jan, [facility] [place] [facility] [address] [id number] [place] [address]- 3098 Jan, [facility] [place] [facility] [address] [id number] [place] [address]- 5475 Jan, [facility] [place] [facility] [address] [id number] [place] [address]- 5384 Jan, [facility] [place] [facility] [address] [id number], [place] [address]- 2194 Jan, [facility] [place] [facility] [address] [id number] [place] [address]- 2370 Nov, [facility] [place] [facility] [address] [id number] [place] [address]- 5004 Nov, [facility] [place] [facility] [address] [id number] [place] [address]- 5358 October, [facility] [place] [facility] [address] [id number] [place] [address]- 4349 October, [facility] [place] [facility] [address] [id number] [place] [address]- 0688 October, [facility] [place] [facility] [address] [id number] [place] [address]- 3055 October, [facility] [place] [facility] [address] [id number] [place] [address]- 5013 Sep, [facility] [place] [facility] [address] [id number] [place] [address]- 4614 Aug, [facility] [place] [facility] [address] [id number] [place] [address]- 0692 Aug, [facility] [place] [facility] [address] [id number] [place] [address]- 8031 Aug, [facility] [place] [facility] [address] [id number] [place] [address]- 4240 Aug, [facility] [place] [facility] [address] [id number] [place] [address]- 0729 Jul, [facility] [place] [facility] [address] [id number] [place] [address]- 0762 Jul, [facility] [place] [facility] [address] [id number] [place] [address]- 0500 Jun, [facility] [place] [facility] [address] [id number] [place] [address]- 8484 Jun, [facility] [place] [facility] [address] [id number] [place] [address]- 8345 Jun, [facility] [place] [facility] [address] [id number] [place] [address]- 4396 Jun, [facility] [place] [facility] [address] [id number] [place] [address]- 7574 Jun, [facility] [place] [facility] [address] [id number] [place] [address]- 5486 Jun, [facility] [place] [facility] [address] [id number] [place] [address]- 4390 Mar, [facility] [place] [facility] [address] [id number] [place] [address]- 5651 Mar, [facility] [place] [facility] [address] [id number] [place] [address]- 6086 Feb, [facility] [place] [facility] [address] [id number] [place] [address]- 4481 Feb, [facility] [place] [facility] [address] [id number] [place] [address]- 7448 Feb, [facility] [place] [facility] [address] [id number] [place] [address]- 7641 Jan, [facility] [place] [facility] [address] [id number] [place] [address]- 9701 Jan, [facility] [place] [facility] [address] [id number] [place] [address]- 0644 Dec, [facility] [place] [facility] [address] [id number] [place] [address]- 1465 Nov, [facility] [place] [facility] [address] [id number] [place] [address]- 5468 Sep, [facility] [place] [facility] [address] [id number] [place] [address]- 0806 Aug, [facility] [place] [facility] [address] [id number] [place] [address]- 1900 Aug, [facility] [place] [facility] [address] [id number] [place] [address]- 5702 Aug, [facility] [place] [facility] [address] [id number] [place] [address]- 8776 Jul, [facility] [place] [facility] [address] [id number] [place] [address]- 1816 Jul, [facility] [place] [facility] [address] [id number] [place] [address] Jul, [facility] [place] [facility] [address] [id number] [place] [address] Jul, [facility] [place] [facility] [address] [id number] [place] [address] Jul, [facility] [place] [facility] [address] [id number] [place] [address] Apr, [facility] [place] [facility] [address] [id number] [place] [address] Apr, [facility] [place] [facility] [address] [id number] [place] [address] Jan, [facility] [place] [facility] [address] [facility] [id number] [place] [address] Jan, [facility] [place] [facility] [address] [id number] [place] [address] Dec, [facility] [place] [facility] [address] [id number] [place] [address] Dec, [facility] [place] [facility] [address] [id number] [place] [address] Dec, [facility] [place] [facility] [address] [id number] [place] [address] Dec, [facility] [place] [facility] [address] [facility] [id number] [place] [address] Dec, [facility] [place] [facility] [id number] [place] [address] October, [facility] [id number] [place] [address] Aug, [facility] [id number] [place] [address] Aug, [facility] [id number] [place] [address] Aug, [facility] [id number] [place] [address] Jul, [facility] [id number] [place] [address] May, [facility] [id number] [place] [address] Apr, [facility] [id number] [place] [address] May, [facility] [id number] [place] [address] May, [facility] [id number] [place] [address] May, [facility] [id number] [address] Mar, [facility] [id number] [place] [address] Mar, [facility] [address] [id number] [address] Aug, IMMUNIZATIONS No Known Immunizations SOCIAL HISTORY Never Assessed REASON FOR VISIT L4 compression fracture PLAN OF CARE VITAL SIGNS MEDICATIONS Unknown Medications RESULTS Name Result Date Reference Range MRI : Lumbar w/o contrast 2017-02-25 PROCEDURES No Known procedures INSTRUCTIONS MEDICATIONS ADMINISTERED No Known Medications MEDICAL (GENERAL) HISTORY Type Description Date Medical History chronic pain Medical History arthritis Surgical History Nephrectomy - age 3 Surgical History Appendectomy Hospitalization History surgery Hospitalization History childbirth x 3
--- OUTSIDE RECORDS SUMMARY | 2018-06-07 13:35 | XMS REPORT ---
Author Author CHUY NGUYEN Organization [facility] [place] Address [address] [place] [address] Care Team Providers Care Harp Action Assembler Name Role Phone CHUY NGUYEN Unavailable PROBLEMS Type Condition ICD9-CM Code [id number] Code Onset Dates Condition Status SNOMED Code Problem Scoliosis (and kyphoscoliosis), idiopathic M41.20 Active 24125578 Problem Myalgia M79.1 Active 65066128 Problem Other chronic pain G89.29 Active 82114608 Problem Urinary urgency R39.15 Active 25759368 Problem Dysthymia F34.1 Active 63259798 Problem Varicose veins I86.8 Active 787913567 Problem Need for prophylaxis against urinary tract infection Z29.8 Active 967413942 Problem Abnormal mammogram of left breast R92.8 Active 987108434 Problem Scoliosis, unspecified scoliosis type, unspecified spinal region M41.9 Active 509593931 Problem Arthralgia M25.50 Active 23301276 Problem Calculus of gallbladder without cholecystitis without obstruction K80.20 Active 734702936 Problem Major depressive disorder, single episode, unspecified F32.9 Active 69932473 ALLERGIES Substance Reaction Event Type Date Status Sulfamethoxazole-Trimethoprim Unknown Drug Allergy Nov, Active Aspirin Unknown Drug Allergy Nov, Active ENCOUNTERS Encounter Location Date Diagnosis [facility] [place] [address] [facility] [id number] [address] Aug, [facility] [place] [address] [place] [address] 11743- 7752 Aug, [facility] [place] [address] [place] [address] [id number] [address] Aug, Dysuria R30.0 ; Scoliosis, unspecified scoliosis type, unspecified spinal region M41.9 ; Encounter for therapeutic drug level monitoring Z51.81 and Alcohol use Z78.9 [place] [address] [place] [address] 19488- 5916 07 Aug, 2017 Other chronic pain G89.29 [place] [address] [address] [id number] [place] [address] 51374- 5659 23 Jul, 2017 Chronic urinary tract infection N39.0 [place] [id number] [place] [address] 65916- 0555 07 Jul, 2017 Other chronic pain G89.29 [place] [address] [id number] [place] [address] 80710- 7688 Jun, [place] [address] [id number] [place] [address] 09552- 2408 Jun, [place] [id number] [place] [address] 45873- 5572 Jun, Acute left-sided thoracic back pain M54.6 [facility] [id number] [place] [address] 30242 -6981 18 Jun, 2017 Cough R05 and Acute bilateral thoracic back pain M54.6 [facility] [place] [id number] [place] [address] 52494 -2245 15 Jun, 2017 Back pain, unspecified back location, unspecified back pain laterality, unspecified chronicity M54.9 and Left flank pain R10.9 [place] [address] [place] [address] [id number] [place] [address] 96548- 5756 Jun, Other chronic pain G89.29 [place] [address] [place] [address] 72894- 0275 Jun, Myalgia M79.1 [place] [address] [address] [id number] [place] [address] 67647- 9327 13 May, 2017 Other chronic pain G89.29 [place] [address] [address] [id number] [place] [address] 36783- 4893 07 May, 2017 Myalgia M79.1 and Fatigue due to exposure, subsequent encounter T73.2XXD [facility] [place] [address] [place] [address] 78230- 0780 05 May, 2017 Fatigue due to exposure, subsequent encounter T73.2XXD [facility] [place] [id number] [place] [address] 86733- 2701 15 Apr, 2017 Other chronic pain G89.29 and Myalgia M79.1 [place] [address] [place] [address] [place] [address] 65794- 2045 Apr, Closed nondisplaced fracture of phalanx of left great toe with routine healing, unspecified phalanx, subsequent encounter S92.405D ; Dysuria R30.0 ; Localized edema R60.0 and Arthralgia M25.50 [place] [address] [address] [id number] [place] [address] 23824- 3043 18 Mar, 2017 Other chronic pain G89.29 and Myalgia M79.1 [place] [address] [place] [id number] [place] [address] 81973- 5397 Mar, [place] [address] [address] [place] [address] 82999- 0467 Mar, Dysuria R30.0 ; Other chronic pain G89.29 ; Scoliosis, unspecified scoliosis type, unspecified spinal region M41.9 and Chronic urinary tract infection N39.0 [place] [address] [place] [address] [id number] [place] [address] 02669- 0715 Feb, Arthralgia M25.50 and Myalgia M79.1 [place] [address] [place] [address] [place] [address] 76684- 1230 13 Feb, 2017 [place] [address] [address] [address] [place] [address] 47234- 8256 11 Feb, 2017 [place] [address] [address] [place] [address] 06041- 2132 06 Feb, 2017 Closed compression fracture of L4 lumbar vertebra with routine healing, subsequent encounter S32.040D ; Closed nondisplaced fracture of phalanx of left great toe with routine healing, unspecified phalanx, subsequent encounter S92.405D and Chronic urinary tract infection N39.0 [place] [address] [place] [address] [id number] [place] [address] 47680- 5400 Jan, Closed compression fracture of fourth lumbar vertebra, initial encounter S32.040A [place] [address] [address] [id number] [place] [address] 96111- 4991 Jan, Urinary tract infection, site not specified N39.0 [place] [address] [place] [id number] [place] [address] 62618- 5175 Jan, [place] [address] [place] [address] [address] [place] [address] 92899- 5562 Jan, [place] [address] [place] [address] [address] [place] [address] 19068- 5851 Jan, Arthralgia M25.50 and Myalgia M79.1 [place] [address] [place] [address] [address] [place] [address] 57172- 0359 Jan, Need for prophylaxis against urinary tract infection Z29.8 and Urinary tract infection, site not specified N39.0 [place] [address] [place] [address] 33567- 7721 Dec, Urinary tract infection, site not specified N39.0 and Need for prophylaxis against urinary tract infection Z29.8 [place] [address] [place] [address] 76122- 5328 Dec, Major depressive disorder, single episode, unspecified F32.9 ; Myalgia M79.1 ; Arthralgia 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.50 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 [place] [address] [place] [address] 88320- 0258 Dec, Other chronic pain G89.29 and Dysuria R30.0 [place] [address] [place] [address] [address] [place] [address] 69282- 1534 Nov, alf 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 Z79.891 [facility] [place] [address] [place] [address] 74672- 4930 Nov, Acute midline low back pain without sciatica M54.5 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 [facility] [place] [address] [place] [address] 90919- 0116 Nov, [facility] [place] [address] [place] [id number] [place] [address] 65199- 0286 October, [facility] [place] [id number] [place] [address] 53348- 6137 October, [facility] [place] [address] [id number] [place] [address] 31162- 3696 Sep, Right leg pain M79.604 [facility] [place] [address] [id number] [place] [address] 86659- 1566 Sep, [facility] [place] [address] [id number] [place] [address] 89850- 0850 Aug, Right leg pain M79.604 [facility] [place] [id number] [place] [address] 35485- 9536 Jul, [facility] [place] [address] [place] [address] 10548- 9919 Jul, Arthralgia M25.50 and Right leg pain M79.604 [facility] [place] [address] [place] [address] 20847- 9123 Jun, Arthralgia M25.50 [facility] [place] [address] [id number] [place] [address] 50480- 8716 Jun, [facility] [place] [address] [id number] [place] [address] 50363- 1230 Jun, Right leg pain M79.604 [facility] [place] [address] [address] [place] [address] 65988- 4635 Jun, Right leg pain M79.604 [place] [address] [address] [place] [address] 11100- 4136 Jun, Abnormal mammogram of left breast R92.8 [place] [address] [place] [address] [address] [place] [address] 07627- 8213 May, Routine gynecological examination V72.31 ; Breast cancer screening Z12.39 ; Cervical cancer screening Z12.4 ; Colon cancer screening Z12.11 and Calculus of gallbladder without cholecystitis without obstruction K80.20 [place] [address] [address] [place] [address] 20732- 8124 May, Arthralgia M25.50 [place] [address] 57862- 0953 Apr, Arthralgia M25.[address] 43628- 1748 Apr, Screening, lipid Z13.[address] 27096- 0101 14 Apr, 2016 Other chronic pain G89.29 ; Scoliosis, unspecified scoliosis type, unspecified spinal region M41.9 ; Right leg pain M79.604 ; Major depressive disorder, single episode, unspecified F32.9 ; Fatigue due to exposure, subsequent encounter T73.2XXD ; Dysthymia F34.1 and Screening, lipid Z13.220 [place] [address] [place] [address] [address] [place] [address] 78036- 6403 Apr, Arthralgia M25.50 [place] [address] [place] [address] [address] [place] [address] 21424- 3851 Mar, Dysthymia 300.4 [place] [address] 56379- 2303 Mar, Arthralgia M25.[address] 48542- 6734 Feb, Arthralgia M25.50 [facility] [place] [id number] [place] [address] 46070- 0969 Jan, Arthralgia M25.50 [facility] [place] [address] [address] [address] [place] [address] 57620- 9680 Dec, 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 [facility] [place] [address] [address] [place] [address] 72530- 5340 Dec, [facility] [place] [address] [address] [place] [address] 97689- 9302 Dec, Right leg pain M79.604 and Scoliosis, unspecified scoliosis type, unspecified spinal region M41.9 [place] [address] [place] [address] [place] [address] 91439- 7078 Dec, Right leg pain M79.604 and Scoliosis, unspecified scoliosis type, unspecified spinal region M41.9 [facility] [place] [address] [address] [place] [address] 58076- 8160 Dec, Arthralgia M25.50 [facility] [place] [address] [place] [address] [place] [address] 35322- 7555 Nov, Arthralgia M25.50 [facility] [place] [address] [address] [address] [place] [address] 29404- 8293 October, Arthralgia M25.50 and Scoliosis, unspecified scoliosis type , unspecified spinal region M41.9 [facility] [place] [address] [id number] [place] [address] 76591- 8995 Sep, [facility] [place] [address] [address] [place] [address] 84906- 2770 Aug, [facility] [place] [address] [place] [address] [address] [place] [address] 46665- 4867 Aug, Arthralgia M25.50 ; Myalgia M79.1 and Scoliosis M41.9 [facility] [place] [address] [address] [place] [address] 03010- 8452 Jul, Other chronic pain G89.29 [facility] [place] [address] 42672- 8396 Jul, Other chronic pain G89.29 [facility] [place] [address] 82375- 8699 Jul, Impingement syndrome of both shoulders M75.41 [facility] [place] [address] 73060- 7775 Jun, [facility] [place] [address] 07031- 5127 Jun, [facility] [place] [address] 45748- 4049 Jun, Scoliosis (and kyphoscoliosis), idiopathic M41.20 and Other chronic pain G89.29 [facility] [address] 22587 -0695 Jun, Upper respiratory tract infection, unspecified type 465.9 and Rhinorrhea J34.89 [place] [address] 76467- 9259 May, [place] [address] 53488- 7202 May, [place] [address] 97698- 5542 Apr, Dysuria R30.0 ; Urinary tract infection, site not specified N39.0 and Hematuria, unspecified R31.9 [facility] [place] [address] 35839- 9744 Apr, [facility] [place] [address] 28364- 0798 Mar, Family history of early CAD Z82.49 [place] [address] 87442- 3852 Mar, Other chronic pain G89.29 [facility] [place] [address] [place] [id number] [place] [address] 99148- 8690 Mar, Impingement syndrome of both shoulders M75.41 [facility] [place] [address] [address] [address] [place] [address] 03798- 7959 Mar, Other chronic pain G89.29 ; Dysthymia F34.1 ; Family history of early CAD Z82.49 ; Dysuria R30.0 and Other specified disorders of Eustachian tube, right ear H69.81 [facility] [place] [address] [id number] [place] [address] 79682- 9213 Mar, [facility] [place] [address] [id number] [place] [address] 54675- 8692 Feb, [facility] [place] [id number] [place] [address] 17562- 6389 Jan, [facility] [place] [id number] [place] [address] 12330- 6842 Jan, Eustachian tube dysfunction 381.81 and Dysthymia 300.4 [facility] [place] [id number] [place] [address] 77685- 0438 Dec, [facility] [place] [id number] [place] [address] 28539- 7890 Nov, Impingement syndrome of both shoulders 726.2 [facility] [place] [address] [id number] [place] [address] 97693- 0506 Nov, [facility] [place] [id number] [place] [address] 24983- 5342 Nov, [facility] [place] [id number] [place] [address] 56413- 4869 Nov, Urgency of urination 788.63 [facility] [place] [id number] [place] [address] 56864- 2527 October, [facility] [place] [address] [id number] [address]- 5700 October, [facility] [place] [facility] [address] [id number] [place] [address]- 7361 Sep, [facility] [place] [facility] [address] [id number] [place] [address]- 0185 Sep, [facility] [place] [facility] [address] [id number] [place] [address]- 8941 Aug, [facility] [place] [facility] [address] [id number] [place] [address]- 3631 Aug, [facility] [place] [facility] [address] [id number] [place] [address]- 1202 Aug, [facility] [place] [facility] [address] [id number] [place] [address]- 5355 Aug, [facility] [place] [facility] [address] [id number] [place] [address]- 9910 Aug, [facility] [place] [facility] [address] [id number] [place] [address]- 6836 Aug, [facility] [place] [facility] [address] [id number] [place] [address]- 5996 Aug, [facility] [place] [facility] [address] [id number] [place] [address]- 3766 Jul, [facility] [place] [facility] [address] [id number] [place] [address]- 7250 Jul, [facility] [place] [facility] [address] [id number] [place] [address]- 0436 Jul, [facility] [place] [facility] [address] [id number] [place] [address]- 7288 Jul, [facility] [place] [facility] [address] [id number] [place] [address]- 3485 Jul, [facility] [place] [facility] [address] [id number] [place] [address]- 5306 Jul, [facility] [place] [facility] [address] [id number] [place] [address]- 0007 Jun, [facility] [place] [facility] [address] [id number] [place] [address]- 5832 Jun, [facility] [place] [facility] [address] [facility] [id number] [place] [address]- 9544 May, [facility] [place] [facility] [address] [id number] [place] [address]- 8205 May, [facility] [place] [facility] [address] [id number] [place] [address]- 1030 May, [facility] [place] [facility] [address] [id number] [place] [address]- 9079 May, [facility] [place] [facility] [address] [id number] [place] [address]- 0360 Mar, [facility] [place] [facility] [address] [id number] [place] [address]- 4961 Mar, [facility] [place] [facility] [address] [id number] [place] [address]- 3352 Feb, [facility] [place] [facility] [address] [id number] [place] [address]- 6202 Feb, [facility] [place] [facility] [address] [id number] [place] [address]- 2387 Jan, [facility] [place] [facility] [address] [id number] [address]- 2012 Jan, [facility] [place] [facility] [address] [id number] [place] [address]- 7955 Jan, [facility] [place] [facility] [address] [id number] [place] [address]- 6484 Jan, [facility] [place] [facility] [address] [id number] [place] [address]- 9411 Jan, [facility] [place] [facility] [address] [id number] [place] [address]- 9189 Nov, [facility] [address] [id number] [place] [address]- 0001 Nov, [facility] [place] [facility] [address] [id number] [place] [address]- 8166 October, [facility] [address] [id number] [place] [address]- 0046 October, [facility] [place] [facility] [address] [id number] [place] [address]- 4585 October, [facility] [address] [id number] [place] [address]- 6971 October, [facility] [place] [facility] [address] [id number] [place] [address]- 4101 Sep, [facility] [place] [facility] [address] [id number] [place] [address]- 6919 Aug, [facility] [address] [id number] [place] [address]- 0187 Aug, [facility] [place] [facility] [address] [id number] [place] [address]- 8282 Aug, [facility] [address] [id number] [place] [address]- 6378 Aug, [facility] [place] [facility] [address] [id number] [place] [address]- 6957 Jul, [facility] [place] [facility] [address] [id number] [place] [address]- 0716 Jul, [facility] [place] [facility] [address] [id number] [place] [address]- 1689 Jun, [facility] [place] [facility] [address] [id number] [place] [address]- 4776 Jun, [facility] [place] [facility] [address] [id number] [place] [address]- 8377 Jun, [facility] [place] [facility] [address] [id number] [place] [address]- 7553 Jun, [facility] [place] [facility] [address] [id number] [place] [address]- 7392 Jun, [facility] [place] [facility] [address] [id number] [place] [address]- 4404 Jun, [facility] [place] [facility] [address] [id number] [place] [address] Mar, [facility] [place] [facility] [address] [id number] [place] [address] Mar, [facility] [place] [facility] [address] [id number] [place] [address] Feb, [facility] [place] [facility] [address] [id number] [place] [address] Feb, [facility] [place] [facility] [address] [id number] [place] [address] Feb, [facility] [place] [facility] [address] [id number] [place] [address] Jan, [facility] [place] [facility] [address] [id number] [place] [address] Jan, [facility] [place] [facility] [address] [id number] [place] [address] Dec, [facility] [place] [facility] [address] [id number], [place] [address] Nov, [facility] [place] [facility] [address] [id number] [place] [address] Sep, [facility] [place] [facility] [address] [id number] [place] [address] Aug, [facility] [place] [facility] [address] [id number] [place] [address] Aug, [facility] [place] [facility] [address] [id number] [place] [address] Aug, [facility] [address] [id number] [place] [address] Jul, [facility] [place] [facility] [address] [id number] [place] [address]66 Jul, [facility] [place] [facility] [address] [id number] [place] [address]- [address]246 Jul, [facility] [place] [facility] [address] [id number] [place] [address] Jul, [facility] [place] [facility] [address] [id number] [place] [address] Jul, [facility] [place] [facility] [address] [id number] [place] [address] Apr, [facility] [address] [id number] [place] [address] Apr, [facility] [address] [id number] [place] [address] Jan, [facility] [place] [facility] [address] [id number] [place] [address] Jan, [facility] [address] [id number] [place] [address] Dec, [facility] [place] [facility] [address] [id number] [place] [address] Dec, [facility] [place] [facility] [address] [id number] [place] [address] Dec, [facility] [place] [facility] [address] [id number] [place] [address] Dec, [facility] [place] [facility] [address] [id number] [place] [address] Dec, [facility] [place] [facility] [address] [id number] [place] [address] October, [facility] [place] [id number] [address] Aug, [facility] [place] [id number], [place] [address] Aug, [facility] [place] [id number] [address] Aug, [facility] [place] [id number], [place] [address] Jul, [facility] [place] [id number], [place] [address] May, [facility] [place] [id number], [place] [address] Apr, [facility] [place] [id number], [place] [address] May, [facility] [place] [id number], [place] [address] May, [facility] [place] [id number], [place] [address] May, [facility] [place] [id number], [place] [address] Mar, [facility], [place] [id number], [place] [address] Mar, [facility], [place] [id number], [place] [address] Aug, IMMUNIZATIONS No Known Immunizations SOCIAL HISTORY Never Assessed REASON FOR VISIT back pain, 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 face on the way marcos Warren MA PLAN OF CARE Activity Details Follow Up 4 Weeks Reason:pain mgmt VITAL SIGNS Height 66.5 in 2016-12-12 Weight 167.1 lbs 2016-12-12 Temperature 97.8 degrees Fahrenheit 2016-12-12 Heart Rate 70 bpm 2016-12-12 Respiratory Rate 20 2016-12-12 BMI 26.56 kg/m2 2016-12-12 Blood pressure systolic 98 mmHg 2016-12-12 Blood pressure diastolic 64 mmHg 2016-12-12 MEDICATIONS Medication Instructions Dosage Frequency Start Date End Date Duration Status Hydrocodone-Acetaminophen 10-325 MG Orally 5 times per day 1 Nov, Active Vitamin D-3 80781 Orally once weekly 1 capsule Apr, Active Fluoxetine 40 mg 1 tablet 24h Aug, Active Lyrica 150 MG Orally 3 times a day 1 capsule 8h Apr, Active RESULTS Name Result Date Reference Range Xray : Spine, Lumbar 2-3 views (IN HOUSE) 2016-12-12 [facility] 2016-12-12 PROCEDURES Procedure Date Ordered Result Body Site X-RAY EXAM OF LOWER SPINE December 12, 2016 No Charge December 12, 2016 INSTRUCTIONS MEDICATIONS ADMINISTERED No Known Medications MEDICAL (GENERAL) HISTORY Type Description Date Medical History chronic pain Medical History arthritis Surgical History Nephrectomy - age 3 Surgical History Appendectomy Hospitalization History surgery Hospitalization History childbirth x 3
--- OUTSIDE RECORDS SUMMARY | 2018-06-07 13:36 | XMS REPORT ---
Author Author CHUY NGUYEN [facility] Address [address] [place] [address] Care Team Providers Care Door Opener Name Role Phone CHUY NGUYEN Unavailable PROBLEMS Type Condition ICD9-CM Code [id number] Code Onset Dates Condition Status SNOMED Code Problem Scoliosis (and kyphoscoliosis), idiopathic M41.20 Active 62176976 Problem Myalgia M79.1 Active 30828593 Problem Other chronic pain G89.29 Active 69764535 Problem Urinary urgency R39.15 Active 15980829 Problem Dysthymia F34.1 Active 30083795 Problem Varicose veins I86.8 Active 780314952 Problem Need for prophylaxis against urinary tract infection Z29.8 Active 101645064 Problem Abnormal mammogram of left breast R92.8 Active 718175217 Problem Scoliosis, unspecified scoliosis type, unspecified spinal region M41.9 Active 187916347 Problem Arthralgia M25.50 Active 27685659 Problem Calculus of gallbladder without cholecystitis without obstruction K80.20 Active 659131504 Problem Major depressive disorder, single episode, unspecified F32.9 Active 10540209 ALLERGIES No Information ENCOUNTERS Encounter Location Date Diagnosis [place] [id number] [place] [address] 65160- 3838 30 Aug, 2017 Other chronic pain G89.29 [facility] [address] [place] [id number] [place] [address] 52919- 3077 29 Aug, 2017 Scoliosis (and kyphoscoliosis), idiopathic M41.20 [facility] [address] [place] [id number] [place] [address] 70088- 9379 Aug, [facility] [address] [place] [id number] [place] [address] 52234- 4683 12 Aug, 2017 Dysuria R30.0 ; Scoliosis, unspecified scoliosis type, unspecified spinal region M41.9 ; Encounter for therapeutic drug level monitoring Z51.81 and Alcohol use Z78.9 [facility] [address] [id number] [place] [address] 19560- 3481 Aug, Other chronic pain G89.29 [facility] [address] [place] [id number] [place] [address] 84759- 9239 Jul, Chronic urinary tract infection N39.0 [facility] [address] [place] [id number] [place] [address] 96319- 7627 Jul, Other chronic pain G89.29 [place] [address] [place] [id number] [place] [address] 63063- 8878 Jun, [facility] [address] [place] [id number] [place] [address] 92010- 3311 Jun, [place] [address] [place] [id number] [place] [address] 21963- 6398 Jun, Acute left-sided thoracic back pain M54.6 [facility] [id number] [place] [address] 10609 -3596 18 Jun, 2017 Cough R05 and Acute bilateral thoracic back pain M54.6 [facility] [address] [place] [id number] [place] [address] 41677 -0551 15 Jun, 2017 Back pain, unspecified back location, unspecified back pain laterality, unspecified chronicity M54.9 and Left flank pain R10.9 [facility] [address] [place] [id number] [place] [address] 51711- 5860 Jun, Other chronic pain G89.29 [facility] [address] [place] [id number] [place] [address] 02550- 3956 Jun, Myalgia M79.1 [facility] [address] [place] [id number] [place] [address] 51295- 0029 May, Other chronic pain G89.29 [facility] [address] [place] [id number] [place] [address] 78918- 1718 May, Myalgia M79.1 and Fatigue due to exposure, subsequent encounter T73.2XXD [place] [address] [place] [id number] [place] [address] 83623- 1499 05 May, 2017 Fatigue due to exposure, subsequent encounter T73.2XXD [place] [address] [place] [id number] [place] [address] 24788- 0247 15 Apr, 2017 Other chronic pain G89.29 and Myalgia M79.1 [place] [address] 09913- 4804 08 Apr, 2017 Closed nondisplaced fracture of phalanx of left great toe with routine healing, unspecified phalanx, subsequent encounter S92.405D ; Dysuria R30.0 ; Localized edema R60.0 and Arthralgia M25.50 [place] [address] 80933- 8290 Mar, Other chronic pain G89.29 and Myalgia M79.1 [place] [address] [place] [id number] [place] [address] 78983- 0754 Mar, [place] [address] [place] [id number] [place] [address] 09327- 5469 Mar, Dysuria R30.0 ; Other chronic pain G89.29 ; Scoliosis, unspecified scoliosis type, unspecified spinal region M41.9 and Chronic urinary tract infection N39.0 [place] [address] [place] [id number] [place] [address] 67783- 3832 Feb, Arthralgia M25.50 and Myalgia M79.1 [place] [address] 44837- 0884 13 Feb, 2017 [place] [address] [place] [id number] [place] [address] 01723- 2132 Feb, [place] [address] [place] [id number] [place] [address] 61361- 0512 Feb, Closed compression fracture of L4 lumbar vertebra with routine healing, subsequent encounter S32.040D ; Closed nondisplaced fracture of phalanx of left great toe with routine healing, unspecified phalanx, subsequent encounter S92.405D and Chronic urinary tract infection N39.0 [facility] [address] [place] [address] 37140- 6175 Jan, Closed compression fracture of fourth lumbar vertebra, initial encounter S32.040A [facility] [address] [place] [id number] [place] [address] 01785- 5833 Jan, Urinary tract infection, site not specified N39.0 [place] [address] [place] [id number] [place] [address] 13387- 5963 Jan, [place] [address] [place] [id number] [place] [address] 85041- 5593 Jan, [place] [address] [place] [id number] [place] [address] 61856- 6910 Jan, Arthralgia M25.50 and Myalgia M79.1 [place] [address] [place] [id number] [place] [address] 31669- 3911 Jan, Need for prophylaxis against urinary tract infection Z29.8 and Urinary tract infection, site not specified N39.0 [place] [address] [place] [address] 55317- 2088 Dec, Urinary tract infection, site not specified N39.0 and Need for prophylaxis against urinary tract infection Z29.8 [facility] [address] [place] [address] 72340- 6205 Dec, Major depressive disorder, single episode, unspecified F32.9 ; Myalgia M79.1 ; Arthralgia M25.50 and 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 [facility] [address] [place] [address] 00728- 1801 Dec, Other chronic pain G89.29 and Dysuria R30.0 [place] [address] [place] [id number] [place] [address] 72848- 2997 Nov, 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 [facility] [address] [place] [id number] [place] [address] 16910- 4087 Nov, Acute midline low back pain without sciatica M54.5 and 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 [facility] [address] [place] [id number] [place] [address] 46774- 7184 Nov, [facility] [address] [place] [id number] [place] [address] 95726- 2218 October, [facility] [address] [place] [id number] [place] [address] 05588- 1778 October, [facility] [address] [place] [id number] [place] [address] 19770- 5240 Sep, Right leg pain M79.604 [facility] [address] [place] [id number] [place] [address] 85272- 3304 Sep, [facility] [address] [place] [id number] [place] [address] 52937- 9170 Aug, Right leg pain M79.604 [facility] [address] [place] [id number] [place] [address] 02328- 0687 Jul, [facility] [address] [place] [id number] [place] [address] 83344- 1631 Jul, Arthralgia M25.50 and Right leg pain M79.604 [facility] [address] [place] [address] 38528- 7012 Jun, Arthralgia M25.50 [facility] [address] [place] [id number] [place] [address] 24358- 3796 Jun, [facility] [address] [place] [id number] [place] [address] 13246- 9206 Jun, Right leg pain M79.604 [place] [address] [place] [id number] [place] [address] 54341- 6782 Jun, Right leg pain M79.[address] 66731- 6664 Jun, Abnormal mammogram of left breast R92.[address] 41974- 0390 May, Routine gynecological examination V72.31 ; Breast cancer screening Z12.39 ; Cervical cancer screening Z12.4 ; Colon cancer screening Z12.11 and Calculus of gallbladder without cholecystitis without obstruction K80.[address] 65595- 9691 May, Arthralgia M25.[address] 22833- 9799 Apr, Arthralgia M25.[address] 69322- 4024 Apr, Screening, lipid Z13.[address] 61668- 1806 14 Apr, 2016 Other chronic pain G89.29 ; Scoliosis, unspecified scoliosis type, unspecified spinal region M41.9 ; Right leg pain M79.604 ; Major depressive disorder, single episode, unspecified F32.9 ; Fatigue due to exposure, subsequent encounter T73.2XXD ; Dysthymia F34.1 and Screening, lipid Z13.220 [place] [id number] [place] [address] 13045- 2684 Apr, Arthralgia M25.[address] 71720- 3896 Mar, Dysthymia 300.[address] 60963- 2960 Mar, Arthralgia M25.[address] [place] [id number] [address]- 6238 Feb, Arthralgia M25.50 [facility] [address] [place] [id number] [place] [address] 29297- 9534 Jan, Arthralgia M25.50 [facility] [address] [place] [id number] [place] [address] 03543- 8827 Dec, 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 [facility] [address] [place] [id number] [place] [address] 92736- 6974 Dec, [facility] [address] [place] [id number] [place] [address] 93293- 9346 Dec, Right leg pain M79.604 and Scoliosis, unspecified scoliosis type, unspecified spinal region M41.9 [facility] [address] [place] [id number] [place] [address] 33688- 1603 Dec, Right leg pain M79.604 and Scoliosis, unspecified scoliosis type, unspecified spinal region M41.9 [facility] [address] [place] [id number] [place] [address] 66024- 4863 Dec, Arthralgia M25.50 [facility] [address] [place] [id number] [place] [address] 18914- 5514 Nov, Arthralgia M25.50 [facility] [address] [place] [id number] [place] [address] 10221- 6215 October, Arthralgia M25.50 and Scoliosis, unspecified scoliosis type , unspecified spinal region M41.9 [facility] [address] [place] [address] 50391- 6200 Sep, [facility] [address] [place] [id number] [place] [address] 75438- 1335 Aug, [facility] [address] [place] [address] 29387- 6781 Aug, Arthralgia M25.50 ; Myalgia M79.1 and Scoliosis M41.9 [facility] [address] [place] [id number] [place] [address] 19177- 3230 Jul, Other chronic pain G89.29 [facility] [address] [place] [id number] [place] [address] 55863- 8245 Jul, Other chronic pain G89.29 [facility] [address] 69881- 9552 Jul, Impingement syndrome of both shoulders M75.41 [facility] [address] [place] [id number] [place] [address] 04460- 2669 Jun, [facility] [address] [place] [id number] [place] [address] 02674- 9757 Jun, [facility] [address] [place] [id number] [place] [address] 95121- 4935 Jun, Scoliosis (and kyphoscoliosis), idiopathic M41.20 and Other chronic pain G89.29 [facility] [address] [place] [id number] [place] [address] 95953 -1955 Jun, Upper respiratory tract infection, unspecified type 465.9 and Rhinorrhea J34.89 [facility] [address] [place] [id number] [place] [address] 32582- 2378 May, [facility] [address] [place] [id number] [place] [address] 01823- 1983 May, [facility] [address] [place] [id number] [place] [address] 58022- 5635 Apr, Dysuria R30.0 ; Urinary tract infection, site not specified N39.0 and Hematuria, unspecified R31.9 [facility] [address] [place] [id number] [place] [address] 20025- 9080 Apr, [facility] [address] [place] [id number] [place] [address] 99730- 4776 Mar, Family history of early CAD Z82.49 [facility] [address] [place] [id number] [place] [address] 08028- 7280 Mar, Other chronic pain G89.29 [facility] [address] 54127- 0726 Mar, Impingement syndrome of both shoulders M75.41 [facility] [address] [place] [id number] [place] [address] 96887- 1545 Mar, Other chronic pain G89.29 ; Dysthymia F34.1 ; Family history of early CAD Z82.49 ; Dysuria R30.0 and Other specified disorders of Eustachian tube, right ear H69.81 [facility] [address] [place] [id number] [place] [address] 25512- 7273 Mar, [facility] [address] 94570- 7846 Feb, [facility] [address] 75971- 5467 Jan, [facility] [address] 48646- 3355 Jan, Eustachian tube dysfunction 381.81 and Dysthymia 300.4 [facility] [address] [place] [id number] [place] [address] 07333- 8291 Dec, [facility] [address] [place] [id number] [place] [address] 38798- 8731 Nov, Impingement syndrome of both shoulders 726.2 [facility] [address] [place] [id number] [place] [address] 62970- 6130 Nov, [facility] [address] 60560- 2876 Nov, [facility] [address] [place] [id number] [place] [address] 54753- 4132 Nov, Urgency of urination 788.63 [facility] [address] [place] [address]- 2504 October, [facility] [place] [facility] [address] [id number] [place] [address]- 4134 October, [facility] [place] [facility] [address] [id number] [place] [address]- 0519 Sep, [facility] [place] [facility] [address] [id number] [place] [address]- 1366 Sep, [facility] [place] [facility] [address] [id number] [place] [address]- 4420 Aug, [facility] [place] [facility] [address] [id number] [place] [address]- 0985 Aug, [facility] [place] [facility] [address] [id number] [place] [address]- 7134 Aug, [facility] [place] [facility] [address] [id number] [place] [address]- 8146 Aug, [facility] [place] [facility] [address] [id number] [place] [address]- 7134 Aug, [facility] [place] [facility] [address] [id number] [place] [address]- 1292 Aug, [facility] [place] [facility] [address] [facility] [id number] [place] [address]- 2627 Aug, [facility] [place] [facility] [address] [id number] [place] [address]- 9517 Jul, [facility] [place] [facility] [address] [id number] [place] [address]- 5490 Jul, [facility] [place] [facility] [address] [id number] [place] [address]- 6366 Jul, [facility] [place] [facility] [address] [facility] [id number] [place] [address]- 7210 Jul, [facility] [place] [facility] [address] [facility] [id number] [place] [address]- 8268 Jul, [facility] [place] [facility] [address] [id number] [place] [address]- 7588 Jul, [facility] [place] [facility] [address] [id number] [place] [address]- 2153 Jun, [facility] [place] [facility] [address] [id number] [place] [address]- 8096 Jun, [facility] [place] [facility] [address] [id number] [place] [address]- 6077 May, [facility] [place] [facility] [address] [id number] [place] [address]- 9719 May, [facility] [place] [facility] [address] [id number] [place] [address]- 1556 May, [facility] [place] [facility] [address] [id number] [place] [address]- 4010 May, [facility] [place] [facility] [address] [id number] [place] [address]- 3796 Mar, [facility] [place] [facility] [address] [id number] [place] [address]- 6790 Mar, [facility] [place] [facility] [address] [id number] [place] [address]- 7159 Feb, [facility] [place] [facility] [address] [id number] [place] [address]- 2246 Feb, [facility] [place] [facility] [address] [id number] [place] [address]- 5651 Jan, [facility] [place] [facility] [address] [id number] [place] [address]- 8726 Jan, [facility] [place] [facility] [address] [id number] [place] [address]- 3861 Jan, [facility] [place] [facility] [address] [id number] [place] [address]- 4320 Jan, [facility] [place] [facility] [address] [id number] [place] [address]- 9499 Jan, [facility] [place] [facility] [address] [id number] [place] [address]- 0893 Nov, [facility] [place] [facility] [address] [id number] [place] [address]- 0312 Nov, [facility] [place] [facility] [address] [id number] [place] [address]- 2847 October, [facility] [place] [facility] [address] [id number] [place] [address]- 1014 October, [facility] [place] [facility] [address] [id number] [place] [address]- 7926 October, [facility] [place] [facility] [address] [id number] [place] [address]- 5210 October, [facility] [place] [facility] [address] [id number] [place] [address]- 4626 Sep, [facility] [place] [facility] [address] [id number] [place] [address]- 3416 Aug, [facility] [place] [facility] [address] [id number] [place] [address]- 3845 Aug, [facility] [place] [facility] [address] [id number] [place] [address]- 4309 Aug, [facility] [place] [facility] [address] [id number] [place] [address]- 8850 Aug, [facility] [place] [facility] [address] [id number] [place] [address]- 5705 Jul, [facility] [place] [facility] [address] [id number] [place] [address]- 1750 Jul, [facility] [place] [facility] [address] [id number] [place] [address]- 6710 Jun, [facility] [place] [facility] [address] [id number] [place] [address]- 1532 Jun, [facility] [place] [facility] [address] [id number] [place] [address]- 9471 Jun, [facility] [place] [facility] [address] [id number] [place] [address]- 9889 Jun, [facility] [place] [facility] [address] [id number] [place] [address]- 3122 Jun, [facility] [place] [facility] [address] [id number] [place] [address]- 5567 Jun, [facility] [place] [facility] [address] [id number] [place] [address]- 0366 Mar, [facility] [place] [facility] [address] [id number] [place] [address]- 8818 Mar, [facility] [place] [facility] [address] [id number] [place] [address]- 9128 Feb, [facility] [place] [facility] [address] [id number] [place] [address]- 5795 Feb, [facility] [place] [facility] [address] [id number] [place] [address]- 6492 Feb, [facility] [place] [facility] [address] [id number] [place] [address]- 7873 Jan, [facility] [place] [facility] [address] [id number] [place] [address]- 1101 Jan, [facility] [place] [facility] [address] [id number] [place] [address]- 8314 Dec, [facility] [place] [facility] [address] [id number] [place] [address]- 4957 Nov, [facility] [place] [facility] [address] [id number] [place] [address]- 2582 Sep, [facility] [place] [facility] [address] [id number] [place] [address]- 2979 Aug, [facility] [place] [facility] [address] [id number] [place] [address]- 2886 Aug, [facility] [address] [id number] [place] [address]- 3754 Aug, [facility] [place] [facility] [address] [id number] [place] [address]- 0626 Jul, [facility] [address] [id number] [place] [address]- 1076 Jul, [facility] [place] [facility] [address] [id number] [place] [address]- 6561 Jul, [facility] [address] [id number] [place] [address]- 6175 Jul, [facility] [address] [id number] [place] [address]- 4596 Jul, [facility] [address] [facility] [id number] [place] [address]- 2544 Apr, [facility] [address] [id number] [place] [address] Apr, [facility] [address] [facility] [id number] [place] [address] Jan, [facility] [address] [facility] [id number] [place] [address] Jan, [facility] [address] [facility] [id number] [place] [address] Dec, [facility] [place] [facility] [address] [id number] [place] [address] Dec, [facility] [place] [facility] [address] [id number] [place] [address] Dec, [facility] [place] [facility] [address] [facility] [id number] [place] [address] Dec, [facility] [place] [facility] [address] [facility] [id number] [place] [address] Dec, [facility] [place] [facility] [address] [facility] [id number], [place] [address] October, [facility] [address] [facility] [id number], [place] [address] Aug, [facility] [address] [facility] [id number][place] [address] Aug, [facility] [address] [facility] [id number], [place] [address] Aug, [facility] [address] [facility] [id number], [place] [address] Jul, [facility] [address] [facility] [id number], [place] [address] May, [facility] [id number] [address] Apr, [facility] [id number], [place] [address] May, [facility] [id number] [address] May, [facility] [id number], [place] [address] May, [facility] [id number] [address] Mar, [facility] [address] [id number], [place] [address] Mar, [facility] [address] [facility] [id number], [place] [address] Aug, IMMUNIZATIONS No Known Immunizations SOCIAL HISTORY Never Assessed REASON FOR VISIT Orders from results PLAN OF CARE VITAL SIGNS MEDICATIONS Medication Instructions Dosage Frequency Start Date End Date Duration Status Macrobid 100 MG Orally every 12 hrs 1 capsule with food 12h 24 Dec, 2016 Dec, 07 days Active Macrobid 100 MG Orally Once [...]
--- OUTSIDE RECORDS SUMMARY | 2018-06-07 13:36 | XMS REPORT ---
Author Author JUVENTINO JAMES Organization [facility] Address [address] [place] [address] Care Team Providers Care Clinical Support Tech Name Role Phone ERIKA JUVENTINO Unavailable PROBLEMS Type Condition ICD9-CM Code [id number] Code Onset Dates Condition Status SNOMED Code Problem Scoliosis (and kyphoscoliosis), idiopathic M41.20 Active 98262272 Problem Myalgia M79.1 Active 72659837 Problem Other chronic pain G89.29 Active 94724720 Problem Urinary urgency R39.15 Active 21557733 Problem Dysthymia F34.1 Active 80452701 Problem Varicose veins I86.8 Active 498241437 Problem Need for prophylaxis against urinary tract infection Z29.8 Active 247118242 Problem Abnormal mammogram of left breast R92.8 Active 251000825 Problem Scoliosis, unspecified scoliosis type, unspecified spinal region M41.9 Active 356428166 Problem Arthralgia M25.50 Active 56838737 Problem Calculus of gallbladder without cholecystitis without obstruction K80.20 Active 883395956 Problem Major depressive disorder, single episode, unspecified F32.9 Active 69817394 ALLERGIES No Information ENCOUNTERS Encounter Location Date Diagnosis [facility] [id number] [place] [address] 09801- 6928 October, Other chronic pain G89.29 and Myalgia M79.1 [facility] [id number] [place] [address] 35077- 6431 Sep, Other chronic pain G89.29 [facility] [id number] [place] [address] 57684- 3639 Aug, Other chronic pain G89.29 [facility] [id number] [place] [address] 44962- 4265 Aug, Scoliosis (and kyphoscoliosis), idiopathic M41.20 [facility] [id number] [place] [address] 33568- 3793 20 Aug, 2017 [facility] [id number] [place] [address] 04000- 7936 12 Aug, 2017 Dysuria R30.0 ; Scoliosis, unspecified scoliosis type, unspecified spinal region M41.9 ; Encounter for therapeutic drug level monitoring Z51.81 and Alcohol use Z78.9 [facility] [id number] [place] [address] 86935- 4805 07 Aug, 2017 Other chronic pain G89.29 [facility] [id number] [place] [address] 05227- 4684 23 Jul, 2017 Chronic urinary tract infection N39.0 [facility] [id number] [place] [address] 02530- 6241 07 Jul, 2017 Other chronic pain G89.29 [facility] [id number] [place] [address] 47526- 1641 Jun, [facility] [id number] [place] [address] 51557- 7747 Jun, [facility] [id number] [place] [address] 57136- 9192 Jun, Acute left-sided thoracic back pain M54.6 [facility] [id number] [place] [address] 86921 -0739 Jun, Cough R05 and Acute bilateral thoracic back pain M54.6 [facility] [id number] [place] [address] 70118 -7789 15 Jun, 2017 Back pain, unspecified back location, unspecified back pain laterality, unspecified chronicity M54.9 and Left flank pain R10.9 [facility] [id number] [place] [address] 59869- 9179 Jun, Other chronic pain G89.29 [facility] [id number] [place] [address] 09725- 7379 Jun, Myalgia M79.1 [facility] [address] [place] [address] 32655- 0360 May, Other chronic pain G89.29 [facility] [address] [place] [address] 95137- 2780 May, Myalgia M79.1 and Fatigue due to exposure, subsequent encounter T73.2XXD [facility] [id number] [place] [address] 42716- 2709 05 May, 2017 Fatigue due to exposure, subsequent encounter T73.2XXD [facility] [id number] [place] [address] 15145- 0978 Apr, Other chronic pain G89.29 and Myalgia M79.1 [facility] [id number] [place] [address] 04739- 0577 Apr, Closed nondisplaced fracture of phalanx of left great toe with routine healing, unspecified phalanx, subsequent encounter S92.405D ; Dysuria R30.0 ; Localized edema R60.0 and Arthralgia M25.50 [facility] [id number] [place] [address] 11167- 2940 Mar, Other chronic pain G89.29 and Myalgia M79.1 [facility] [id number] [place] [address] 10658- 9282 Mar, [facility] [id number] [place] [address] 04380- 6768 Mar, Dysuria R30.0 ; Other chronic pain G89.29 ; Scoliosis, unspecified scoliosis type, unspecified spinal region M41.9 and Chronic urinary tract infection N39.0 [facility] [address] [place] [address] 97637- 5334 Feb, Arthralgia M25.50 and Myalgia M79.1 [facility] [id number] [address]- 0350 Feb, [facility] [address] [address]- 0759 Feb, [facility] [address] [place] [address] 04664- 0071 Feb, Closed compression fracture of L4 lumbar vertebra with routine healing, subsequent encounter S32.040D ; Closed nondisplaced fracture of phalanx of left great toe with routine healing, unspecified phalanx, subsequent encounter S92.405D and Chronic urinary tract infection N39.0 [facility] [address] [place] [address] 56962- 3321 Jan, Closed compression fracture of fourth lumbar vertebra, initial encounter S32.040A [facility] [address] [place] [address] 95840- 3495 Jan, Urinary tract infection, site not specified N39.0 [facility] [address] [address]- 9074 Jan, [facility] [address] [place] [address] 30628- 3087 Jan, [facility] [address] [place] [address] 30595- 3205 Jan, Arthralgia M25.50 and Myalgia M79.1 [facility] [address] [address]- 0180 Jan, Need for prophylaxis against urinary tract infection Z29.8 and Urinary tract infection, site not specified N39.0 [facility] [address] [address]- 2553 Dec, Urinary tract infection, site not specified N39.0 and Need for prophylaxis against urinary tract infection Z29.8 [facility] [id number] [address]- 6008 Dec, Major depressive disorder, single episode, unspecified F32.9 ; Myalgia M79.1 ; Arthralgia M25.50 and half-way 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 Z79.891 [facility] [id number] [place] [address] 62887- 1438 Dec, Other chronic pain G89.29 and Dysuria R30.0 [facility] [id number] [place] [address] 41046- 3148 Nov, 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 [facility] [id number] [place] [address] 77869- 1903 Nov, Acute midline low back pain without sciatica M54.5 and 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 [facility] [address] 91892- 3480 Nov, [facility] [address] 22900- 3098 October, [facility] [address] 46693- 0509 October, [facility] [address] 74309- 5495 Sep, Right leg pain M79.604 [facility] [id number] [place] [address] 25841- 5198 Sep, [facility] [id number] [place] [address] 37530- 4273 Aug, Right leg pain M79.604 [facility] [id number] [place] [address] 48138- 7919 Jul, [facility] [address] 64678- 5628 Jul, Arthralgia M25.50 and Right leg pain M79.604 [facility] [id number] [place] [address] 85464- 3282 Jun, Arthralgia M25.50 [facility] [address] [place] [address] 36698- 6302 Jun, [facility] [address] 00359- 7163 Jun, Right leg pain M79.604 [facility] [address] 02365- 3548 Jun, Right leg pain M79.604 [facility] [address] [place] [address] 39699- 0679 Jun, Abnormal mammogram of left breast R92.8 [facility] [address] 47825- 9630 May, Routine gynecological examination V72.31 ; Breast cancer screening Z12.39 ; Cervical cancer screening Z12.4 ; Colon cancer screening Z12.11 and Calculus of gallbladder without cholecystitis without obstruction K80.20 [facility] [address] [place] [address] 65852- 3880 May, Arthralgia M25.50 [facility] [address] 35126- 4044 Apr, Arthralgia M25.50 [facility] [address] 05583- 2669 Apr, Screening, lipid Z13.220 [facility] [address] [place] [address] 96788- 4239 14 Apr, 2016 Other chronic pain G89.29 ; Scoliosis, unspecified scoliosis type, unspecified spinal region M41.9 ; Right leg pain M79.604 ; Major depressive disorder, single episode, unspecified F32.9 ; Fatigue due to exposure, subsequent encounter T73.2XXD ; Dysthymia F34.1 and Screening, lipid Z13.220 [facility] [address] [place] [address] 14597- 0522 Apr, Arthralgia M25.50 [facility] [address] [place] [address] 00366- 3094 Mar, Dysthymia 300.4 [facility] [address] [place] [address] 80463- 6379 Mar, Arthralgia M25.50 [facility] [id number] [place] [address] 86686- 5142 Feb, Arthralgia M25.50 [facility] [address] [place] [address] 67014- 5897 Jan, Arthralgia M25.50 [facility] [address] [place] [address] 81815- 8506 Dec, 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 [facility] [address] [place] [address] 24636- 9180 Dec, [facility] [address] [place] [address] 85316- 8166 Dec, Right leg pain M79.604 and Scoliosis, unspecified scoliosis type, unspecified spinal region M41.9 [facility] [address] [place] [address] 39704- 3657 Dec, Right leg pain M79.604 and Scoliosis, unspecified scoliosis type, unspecified spinal region M41.9 [facility] [address] [place] [address] 19228- 9899 Dec, Arthralgia M25.50 [facility] [id number] [place] [address] 47649- 1626 Nov, Arthralgia M25.50 [facility] [address] [place] [address] 21482- 9352 October, Arthralgia M25.50 and Scoliosis, unspecified scoliosis type , unspecified spinal region M41.9 [facility] [id number] [place] [address] 36239- 1000 Sep, [facility] [id number] [place] [address] 78117- 6458 Aug, [facility] [id number] [place] [address] 29417- 7593 Aug, Arthralgia M25.50 ; Myalgia M79.1 and Scoliosis M41.9 [facility] [address] [place] [address] 99116- 5376 Jul, Other chronic pain G89.29 [facility] [address] [place] [address] 17817- 3362 Jul, Other chronic pain G89.29 [facility] [address] [place] [address] 32264- 3406 Jul, Impingement syndrome of both shoulders M75.41 [facility] [address] 42758- 6245 Jun, [facility] [address] [place] [address] 42308- 3987 Jun, [facility] [address] [place] [address] 91457- 9809 Jun, Scoliosis (and kyphoscoliosis), idiopathic M41.20 and Other chronic pain G89.29 [facility] [address] [place] [address] 14838 -4271 Jun, Upper respiratory tract infection, unspecified type 465.9 and Rhinorrhea J34.89 [facility] [address] [place] [address] 64773- 9602 May, [facility] [address] 31386- 6621 May, [facility] [address] [place] [address] 94289- 5654 Apr, Dysuria R30.0 ; Urinary tract infection, site not specified N39.0 and Hematuria, unspecified R31.9 [facility] [address] [address]- 2994 Apr, [facility] [id number] [place] [address] 262693- 6671 Mar, Family history of early CAD Z82.49 [facility] [address] [place] [address] 10486- 9462 Mar, Other chronic pain G89.29 [facility] [address] [place] [address] 37140- 5904 Mar, Impingement syndrome of both shoulders M75.41 [facility] [address] [place] [address] 02986- 6537 Mar, Other chronic pain G89.29 ; Dysthymia F34.1 ; Family history of early CAD Z82.49 ; Dysuria R30.0 and Other specified disorders of Eustachian tube, right ear H69.81 [facility] [address] [place] [address] 01543- 5750 Mar, [facility] [address] [place] [address] 37848- 8962 Feb, [facility] [id number] [place] [address] 43049- 1403 Jan, [facility] [address] [place] [address] 07767- 2649 Jan, Eustachian tube dysfunction 381.81 and Dysthymia 300.4 [facility] [address] [place] [address] 35782- 9904 Dec, [facility] [id number] [place] [address] 65476- 3172 Nov, Impingement syndrome of both shoulders 726.2 [facility] [id number] [place] [address] 14958- 5243 Nov, [facility] [id number] [address]- 0838 Nov, [facility] [address] [facility] [id number] [address]- 1256 Nov, Urgency of urination 788.63 [facility] [address] [facility] [id number] [place] [address]- 0096 October, [facility] [address] [facility] [id number] [place] [address], [place] [address]- 3876 October, [facility] [address] [facility] [id number] [place] [address]- 7777 Sep, [facility] [address] [facility] [id number] [place] [address]- 4376 Sep, [facility] [id number] [address]- 6937 Aug, [facility] [id number] [address]- 4045 Aug, [facility] [address] [facility] [id number] [place] [address]- 2469 Aug, [facility] [id number] [address]- 5961 Aug, [facility] [id number] [address]- 6194 Aug, [facility] [address] [facility] [id number] [address]- 9090 Aug, [facility] [address] [facility] [id number] [place] [address]- 0289 Aug, [facility] [address] [facility] [id number] [address]- 0803 Jul, [facility] [address] [facility] [id number] [address]- 7958 Jul, [facility] [id number], [place] [address]- 6692 Jul, 2014 [facility] [place] [facility] [address] [id number] [place] [address]- 3279 Jul, 2014 [facility] [place] [facility] [address] [id number] [place] [address]- 1727 Jul, [facility] [place] [facility] [address] [id number] [place] [address]- 7186 Jul, [facility] [place] [facility] [address] [id number] [place] [address]- 9982 Jun, [facility] [place] [facility] [address] [id number] [place] [address]- 5946 Jun, [facility] [place] [facility] [address] [id number] [place] [address]- 0364 May, [facility] [place] [facility] [address] [id number] [place] [address]- 1952 May, [facility] [place] [facility] [address] [id number] [place] [address]- 9316 May, [facility] [place] [facility] [address] [id number] [place] [address]- 4890 May, [facility] [place] [facility] [address] [facility] [id number] [place] [address]- 4657 Mar, [facility] [place] [facility] [address] [id number] [place] [address]- 4914 Mar, [facility] [place] [facility] [address] [id number] [place] [address]- 9326 Feb, [facility] [place] [facility] [address] [id number] [place] [address]- 8294 Feb, [facility] [place] [facility] [address] [id number] [place] [address]- 0590 Jan, [facility] [place] [facility] [address] [id number] [place] [address]- 2932 Jan, [facility] [place] [facility] [address] [id number] [place] [address]- 6089 Jan, [facility] [place] [facility] [address] [id number] [place] [address]- 9510 Jan, [facility] [place] [facility] [address] [id number] [place] [address]- 0783 Jan, [facility] [place] [facility] [address] [id number] [place] [address]- 9037 Nov, [facility] [place] [facility] [address] [id number] [place] [address]- 7864 Nov, [facility] [place] [facility] [address] [id number] [place] [address]- 5595 October, [facility] [place] [facility] [address] [id number] [place] [address]- 7470 October, [facility] [place] [facility] [address] [id number] [place] [address]- 5740 October, [facility] [place] [facility] [address] [id number] [place] [address]- 9232 October, [facility] [place] [facility] [address] [id number] [place] [address]- 0063 Sep, [facility] [place] [facility] [address] [id number] [place] [address]- 4486 Aug, [facility] [place] [facility] [address] [id number] [place] [address]- 7715 Aug, [facility] [place] [facility] [address] [id number] [place] 2569 Aug, [facility] [place] [facility] [address] [id number] [place] [address]- 0108 Aug, [facility] [place] [facility] [address] [id number] [place] [address]- 6943 Jul, [facility] [place] [facility] [address] [id number] [place] [address]- 5307 Jul, [facility] [place] [facility] [address] [id number] [place] [address]- 7752 Jun, [facility] [place] [facility] [address] [id number] [place] [address]- 1188 Jun, [facility] [place] [facility] [address] [id number] [place] [address]- 2066 Jun, [facility] [place] [facility] [address] [id number] [place] [address]- 1546 Jun, [facility] [place] [facility] [address] [id number] [place] [address]- 2575 Jun, [facility] [place] [facility] [address] [id number] [place] [address]- 6277 Jun, [facility] [place] [facility] [address] [id number] [place] [address]- 8894 Mar, [facility] [place] [facility] [address] [id number] [place] [address]- 0399 Mar, [facility] [place] [facility] [address] [id number] [place] [address]- 5209 Feb, [facility] [place] [facility] [address] [id number] [place] [address]- 3934 Feb, [facility] [place] [facility] [address] [id number] [place] [address]- 7493 Feb, [facility] [place] [facility] [address] [id number] [place] [address]- 0749 Jan, [facility] [place] [facility] [address] [id number] [place] [address]- 9696 Jan, [facility] [place] [facility] [address] [id number] [place] [address]- 5720 Dec, [facility] [place] [facility] [address] [id number] [place] [address] Nov, [facility] [place] [facility] [address] [id number] [place] [address] Sep, [facility] [address] [id number] [place] [address] Aug, [facility] [place] [facility] [address] [id number] [place] [address] Aug, [facility] [address] [id number] [place] [address] Aug, [facility] [place] [facility] [address] [id number] [place] [address] Jul, [facility] [place] [facility] [address] [id number] [place] [address] Jul, [facility] [place] [place] [facility] [address] [id number] [place] [address] Jul, [facility] [address] [id number] [place] [address] Jul, [facility] [address] [id number] [place] [address] Jul, [facility] [address] [id number] [place] [address] Apr, [facility] [address] [id number] [place] [address] Apr, [facility] [address] [id number] [place] [address] Jan, [facility] [place] [place] [facility] [address] [id number] [place] [address] Jan, [facility] [place] [facility] [address] [id number] [place] [address] Dec, [facility] [place] [facility] [address] [id number] [place] [address] Dec, [facility] [place] [facility] [address] [id number] [place] [address] Dec, [facility] [address] [facility] [id number] [place] [address] Dec, [facility] [address] [facility] [id number] [place] [address] Dec, [facility] [address] [facility] [id number] [place] [address] October, [facility] [address] [facility] [id number] [place] [address] Aug, [facility] [address] [facility] [id number] [place] [address] Aug, [facility] [address] [facility] [id number] [place] [address] Aug, [facility] [address] [facility] [id number] [address] Jul, [facility] [address] [facility] [id number], [place] [address] May, [facility] [address] [facility] [id number], [place] [address] Apr, [facility] [address] [facility] [id number], [place] [address] May, [facility] [address] [id number], [place] [address] May, [facility] [address] [facility] [id number] [address] May, [facility] [address] [facility] [id number], [place] [address] Mar, [facility] [address] [facility] [id number], [place] [address] Mar, [facility] [address] [id number], [place] [address] Aug, IMMUNIZATIONS No Known Immunizations SOCIAL HISTORY Never Assessed REASON FOR VISIT sore throat PLAN OF CARE VITAL SIGNS MEDICATIONS Medication Instructions Dosage Frequency Start Date End Date Duration Status Promethazine-Codeine 6.25-10 MG/5ML Orally every 6 hrs 5 ml as needed 6h Jun, Active Keflex 500 mg Orally 3 times a day 1 capsule 8h Jun, Jul, 10 day(s) Active RESULTS No Results PROCEDURES No Known procedures INSTRUCTIONS MEDICATIONS ADMINISTERED No Known Medications MEDICAL (GENERAL) HISTORY Type Description Date Medical History chronic pain Medical History arthritis Surgical History Nephrectomy - age 3 Surgical History Appendectomy Hospitalization History surgery Hospitalization History childbirth x 3
--- OUTSIDE RECORDS SUMMARY | 2018-06-07 13:37 | XMS REPORT ---
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 Name Role Phone DAYAN JUAN Unavailable PROBLEMS Type Condition ICD9-CM Code [id number] Code Onset Dates Condition Status SNOMED Code Problem Scoliosis (and kyphoscoliosis), idiopathic M41.20 Active 79945270 Problem Myalgia M79.1 Active 11499018 Problem Other chronic pain G89.29 Active 93858671 Problem Urinary urgency R39.15 Active 13214662 Problem Dysthymia F34.1 Active 56778034 Problem Varicose veins I86.8 Active 369255335 Problem Need for prophylaxis against urinary tract infection Z29.8 Active 557287298 Problem Abnormal mammogram of left breast R92.8 Active 809726901 Problem Scoliosis, unspecified scoliosis type, unspecified spinal region M41.9 Active 457287291 Problem Arthralgia M25.50 Active 36125284 Problem Calculus of gallbladder without cholecystitis without obstruction K80.20 Active 261496675 Problem Major depressive disorder, single episode, unspecified F32.9 Active 92243058 ALLERGIES Substance Reaction Event Type Date Status Sulfamethoxazole-Trimethoprim Unknown Drug Allergy Jun, Active Aspirin Unknown Drug Allergy Jun, Active ENCOUNTERS Encounter Location Date Diagnosis [place] [id number] [place] [address] 81137- 7347 October, Other chronic pain G89.29 and Myalgia M79.1 [place] [address] [place] [id number] [place] [address] 55442- 0365 Sep, Other chronic pain G89.29 [place] [id number] [place] [address] 85132- 7874 Aug, Other chronic pain G89.29 [place] [address] [place] [id number] [place] [address] 11780- 8037 Aug, Scoliosis (and kyphoscoliosis), idiopathic M41.20 [place] [address] [place] [id number] [place] [address] 09036- 5628 Aug, [place] [address] [place] [id number] [place] [address] 85693- 8592 Aug, Dysuria R30.0 ; Scoliosis, unspecified scoliosis type, unspecified spinal region M41.9 ; Encounter for therapeutic drug level monitoring Z51.81 and Alcohol use Z78.9 [place] [address] [place] [id number] [place] [address] 92398- 4116 Aug, Other chronic pain G89.29 [place] [address] [place] [id number] [place] [address] 35221- 7297 Jul, Chronic urinary tract infection N39.0 [place] [address] 35342- 5247 Jul, Other chronic pain G89.29 [place] [address] [place] [id number] [place] [address] 00705- 5970 Jun, [place] [address] [place] [id number] [place] [address] 51041- 7202 Jun, [place] [address] [place] [id number] [place] [address] 85725- 4179 Jun, Acute left-sided thoracic back pain M54.6 [facility] [id number] [place] [address] 89925 -8104 Jun, Cough R05 and Acute bilateral thoracic back pain M54.6 [facility] [id number] [place] [address] 96502 -2656 Jun, Back pain, unspecified back location, unspecified back pain laterality, unspecified chronicity M54.9 and Left flank pain R10.9 [facility] [address] [id number] [place] [address] 85189- 4746 Jun, Other chronic pain G89.29 [place] [address] [place] [id number] [place] [address] 93837- 7252 Jun, Myalgia M79.1 [place] [address] [place] [id number] [place] [address] 37245- 6862 May, Other chronic pain G89.29 [place] [address] [place] [id number] [place] [address] 05566- 7003 May, Myalgia M79.1 and Fatigue due to exposure, subsequent encounter T73.2XXD [place] [address] [place] [id number] [place] [address] 61471- 7043 05 May, 2017 Fatigue due to exposure, subsequent encounter T73.2XXD [place] [address] [place] [id number] [place] [address] 99920- 6922 Apr, Other chronic pain G89.29 and Myalgia M79.1 [place] [address] [place] [id number] [place] [address] 96101- 4455 08 Apr, 2017 Closed nondisplaced fracture of phalanx of left great toe with routine healing, unspecified phalanx, subsequent encounter S92.405D ; Dysuria R30.0 ; Localized edema R60.0 and Arthralgia M25.50 [place] [address] [place] [id number] [place] [address] 62545- 1143 Mar, Other chronic pain G89.29 and Myalgia M79.1 [place] [address] [place] [id number] [place] [address] 85763- 0222 Mar, [place] [address] [place] [id number] [place] [address] 81813- 1744 Mar, Dysuria R30.0 ; Other chronic pain G89.29 ; Scoliosis, unspecified scoliosis type, unspecified spinal region M41.9 and Chronic urinary tract infection N39.0 [place] [address] [place] [id number] [place] [address] 68017- 9891 Feb, Arthralgia M25.50 and Myalgia M79.1 [facility] [address] [id number], [place] [address] 1126 Feb, [facility] [address] [facility] [id number], [place] [address]- 3762 Feb, [facility] [address] [address] 0025 Feb, Closed compression fracture of L4 lumbar vertebra with routine healing, subsequent encounter S32.040D ; Closed nondisplaced fracture of phalanx of left great toe with routine healing, unspecified phalanx, subsequent encounter S92.405D and Chronic urinary tract infection N39.0 [facility] [address] [facility] [id number], [place] [address]- 2212 Jan, Closed compression fracture of fourth lumbar vertebra, initial encounter S32.040A [facility] [address] [facility] [id number] [place] [address] 92916- 2051 Jan, Urinary tract infection, site not specified N39.0 [facility] [address] [id number], [place] [address]- 9227 Jan, [facility] [address] [facility] [id number], [place] [address]- 6197 Jan, [facility] [address] [place] [id number] [address]- 1713 Jan, Arthralgia M25.50 and Myalgia M79.1 [facility] [address] [facility] [id number], [place] [address]- 5502 Jan, Need for prophylaxis against urinary tract infection Z29.8 and Urinary tract infection, site not specified N39.0 [facility] [address] [facility] [id number], [place] [address]- 1188 Dec, Urinary tract infection, site not specified N39.0 and Need for prophylaxis against urinary tract infection Z29.8 [facility] [address] [place] [address] [id number] [place] [address] 64973- 4058 Dec, Major depressive disorder, single episode, unspecified F32.9 ; Myalgia M79.1 ; Arthralgia M25.50 and 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 [facility] [address] [place] [address] [id number] [place] [address] 44690- 1544 Dec, Other chronic pain G89.29 and Dysuria R30.0 [facility] [address] 56124- 0090 Nov, shelter 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 Z79.891 [place] [address] 11253- 2145 Nov, Acute midline low back pain without sciatica M54.5 and shelter 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 Z79.891 [place] [address] 18947- 5677 Nov, [facility] [address] [address] [id number] [place] [address] 13041- 1520 October, [place] [address] 10412- 6698 October, [facility] [address] [place] [id number] [place] [address] 32876- 8948 Sep, Right leg pain M79.604 [place] [address] [place] [id number] [place] [address] 33997- 8274 Sep, [facility] [address] [place] [id number] [place] [address] 22252- 7266 Aug, Right leg pain M79.604 [facility] [address] [place] [id number] [place] [address] 69509- 2646 Jul, [facility] [address] [place] [id number] [place] [address] 09751- 9827 Jul, Arthralgia M25.50 and Right leg pain M79.604 [place] [address] [place] [id number] [place] [address] 05305- 8212 Jun, Arthralgia M25.50 [place] [address] 51138- 8700 Jun, [place] [address] 16746- 2987 Jun, Right leg pain M79.604 [place] [address] 75553- 3419 Jun, Right leg pain M79.604 [place] [address] 37048- 7301 Jun, Abnormal mammogram of left breast R92.8 [place] [address] 82738- 9041 May, Routine gynecological examination V72.31 ; Breast cancer screening Z12.39 ; Cervical cancer screening Z12.4 ; Colon cancer screening Z12.11 and Calculus of gallbladder without cholecystitis without obstruction K80.20 [place] [address] 40870- 7596 May, Arthralgia M25.50 [place] [address] [place] [id number] [place] [address] 22923- 9176 29 Apr, 2016 Arthralgia M25.50 [place] [address] [place] [id number] [place] [address] 12810- 0750 17 Apr, 2016 Screening, lipid Z13.220 [place] [address] 89780- 9855 14 Apr, 2016 Other chronic pain G89.29 ; Scoliosis, unspecified scoliosis type, unspecified spinal region M41.9 ; Right leg pain M79.604 ; Major depressive disorder, single episode, unspecified F32.9 ; Fatigue due to exposure, subsequent encounter T73.2XXD ; Dysthymia F34.1 and Screening, lipid Z13.220 [place] [address] [place] [id number] [address]- 1122 Apr, Arthralgia M25.50 [facility] [address] [place] [address] [id number] [place] [address] 89699- 4699 Mar, Dysthymia 300.4 [facility] [address] [place] [id number] [place] [address] 02994- 2275 Mar, Arthralgia M25.50 [facility] [address] [place] [id number] [place] [address] 71477- 1161 Feb, Arthralgia M25.50 [facility] [address] [place] [id number] [place] [address] 73139- 8074 Jan, Arthralgia M25.50 [facility] [address] [place] [id number] [place] [address] 70996- 1965 Dec, 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 [facility] [address] [place] [id number] [place] [address] 91751- 7561 Dec, [facility] [address] [place] [id number] [place] [address] 90163- 8334 Dec, Right leg pain M79.604 and Scoliosis, unspecified scoliosis type, unspecified spinal region M41.9 [facility] [address] [place] [id number] [place] [address] 57037- 6704 Dec, Right leg pain M79.604 and Scoliosis, unspecified scoliosis type, unspecified spinal region M41.9 [facility] [address] [place] [id number] [place] [address] 53356- 0041 Dec, Arthralgia M25.50 [facility] [address] [place] [id number] [place] [address] 73341- 1109 Nov, Arthralgia M25.50 [facility] [address] [place] [id number] [place] [address] 86792- 5590 October, Arthralgia M25.50 and Scoliosis, unspecified scoliosis type , unspecified spinal region M41.9 [facility] [address] [place] [id number] [place] [address] 60023- 6297 Sep, [facility] [address] [address] [id number] [place] [address] 11273- 6561 Aug, [facility] [address] [place] [id number] [place] [address] 15197- 9542 Aug, Arthralgia M25.50 ; Myalgia M79.1 and Scoliosis M41.9 [facility] [address] [place] [id number] [place] [address] 08561- 1450 Jul, Other chronic pain G89.29 [facility] [address] [place] [id number] [place] [address] 95280- 4381 Jul, Other chronic pain G89.29 [place] [address] 70076- 4201 Jul, Impingement syndrome of both shoulders M75.41 [facility] [address] [place] [id number] [place] [address] 63767- 3633 Jun, [facility] [address] [place] [id number] [place] [address] 64985- 7619 Jun, [facility] [address] [place] [id number] [place] [address] 23646- 1115 Jun, Scoliosis (and kyphoscoliosis), idiopathic M41.20 and Other chronic pain G89.29 [facility] [address] [place] [address] [id number] [place] [address] 24433 -3592 Jun, Upper respiratory tract infection, unspecified type 465.9 and Rhinorrhea J34.89 [facility] [address] [place] [address] [id number] [place] [address] 03454- 2383 May, [facility] [address] [place] [id number] [place] [address] 08142- 4313 May, [facility] [address] [place] [id number] [place] [address] 76934- 7259 Apr, Dysuria R30.0 ; Urinary tract infection, site not specified N39.0 and Hematuria, unspecified R31.9 [facility] [address] [place] [id number] [place] [address] 80928- 8414 Apr, [facility] [address] [id number] [place] [address] 96701- 0186 Mar, Family history of early CAD Z82.49 [facility] [address] [place] [id number] [place] [address] 43129- 9752 Mar, Other chronic pain G89.29 [facility] [address] [place] [id number] [place] [address] 85684- 1232 Mar, Impingement syndrome of both shoulders M75.41 [facility] [address] [place] [id number] [place] [address] 26929- 8032 Mar, Other chronic pain G89.29 ; Dysthymia F34.1 ; Family history of early CAD Z82.49 ; Dysuria R30.0 and Other specified disorders of Eustachian tube, right ear H69.81 [facility] [address] [id number] [place] [address] 11241- 6466 Mar, [facility] [id number] [place] [address] 05475- 5113 Feb, [facility] [address] [id number] [place] [address] 06839- 1562 Jan, [facility] [address] [id number] [place] [address] 78069- 8893 Jan, Eustachian tube dysfunction 381.81 and Dysthymia 300.4 [facility] [address] [address] [id number] [place] [address] 12357- 0006 Dec, [facility] [address] [id number] [place] [address] 36541- 4399 Nov, Impingement syndrome of both shoulders 726.2 [facility] [address] [id number] [place] [address]- 4574 Nov, [facility] [address] [place] [address]- 7689 Nov, [facility] [address] [place] [id number] [place] [address]- 3654 Nov, Urgency of urination 788.63 [facility] [address] [facility] [id number] [place] [address]- 5880 October, [facility] [place] [facility] [address] [facility] [id number] [place] [address]- 8275 October, [facility] [address] [place] [id number] [place] [address]- 1929 Sep, [facility] [place] [facility] [address] [place] [address]- 7875 Sep, [facility] [address] [place] [id number] [place] [address]- 1350 Aug, [facility] [place] [facility] [address] [place] [id number] [place] [address]- 5578 Aug, [facility] [place] [facility] [address] [facility] [id number] [place] [address]- 3988 Aug, [facility] [place] [facility] [address] [place] [address] [id number] [place] [address]- 5487 Aug, [facility] [place] [facility] [address] [facility] [id number], [place] [address]- 2632 Aug, [facility] [place] [facility] [address] [facility] [id number] [place] [address]- 1382 Aug, [facility] [place] [facility] [address] [facility] [id number] [place] [address]- 2543 Aug, [facility] [place] [facility] [address] [facility] [id number] [place] [address]- 9253 Jul, [facility] [place] [facility] [address] [facility] [id number] [place] [address]- 9486 Jul, 2014 [facility] [place] [facility] [address] [id number] [place] [address]- 4956 Jul, 2014 [facility] [place] [facility] [address] [id number] [place] [address]- 2126 Jul, 2014 [facility] [place] [facility] [address] [id number] [place] [address]- 3176 Jul, 2014 [facility] [place] [facility] [address] [id number] [place] [address]- 3629 Jul, 2014 [facility] [place] [facility] [address] [id number] [place] [address]- 6688 Jun, [facility] [place] [facility] [address] [facility] [id number] [place] [address]- 2876 Jun, [facility] [place] [facility] [address] [facility] [id number] [place] [address]- 7005 May, [facility] [place] [facility] [address] [id number] [place] [address]- 3794 May, [facility] [place] [facility] [address] [facility] [id number] [place] [address]- 7290 May, [facility] [place] [facility] [address] [facility] [id number] [place] [address]- 7037 May, [facility] [place] [facility] [address] [facility] [id number] [place] [address]- 6764 Mar, [facility] [place] [facility] [address] [id number] [place] [address]- 1538 Mar, [facility] [place] [facility] [address] [facility] [id number] [place] [address]- 5350 Feb, [facility] [place] [facility] [address] [id number] [place] [address]- 6040 Feb, [facility] [place] [facility] [address] [facility] [id number] [place] [address]- 0968 Jan, [facility] [place] [facility] [address] [id number] [place] [address]- 6236 Jan, [facility] [place] [facility] [address] [id number] [place] [address]- 1649 Jan, [facility] [place] [facility] [address] [id number] [place] [address]- 6445 Jan, [facility] [place] [facility] [address] [id number] [place] [address]- 9711 Jan, [facility] [place] [facility] [address] [id number] [place] [address]- 2378 Nov, [facility] [place] [facility] [address] [id number] [place] [address]- 9602 Nov, [facility] [place] [facility] [address] [id number] [place] [address]- 3714 October, [facility] [place] [facility] [address] [id number] [place] [address]- 5185 October, [facility] [place] [facility] [address] [id number] [place] [address]- 3583 October, [facility] [place] [facility] [address] [id number] [place] [address]- 2467 October, [facility] [place] [facility] [address] [id number] [place] [address]- 3825 Sep, [facility] [place] [facility] [address] [id number] [place] [address]- 7711 Aug, [facility] [place] [facility] [address] [id number] [place] [address]- 8075 Aug, [facility] [place] [facility] [address] [id number] [place] [address]- 4105 Aug, [facility] [place] [facility] [address] [id number] [place] 5043 Aug, [facility] [place] [facility] [address] [id number] [place] [address]- 9087 Jul, [facility] [place] [facility] [address] [id number] [place] [address]- 0009 Jul, [facility] [place] [facility] [address] [id number] [place] [address]- 2174 Jun, [facility] [place] [facility] [address] [id number] [place] [address]- 2845 Jun, [facility] [place] [facility] [address] [id number] [place] [address]- 1462 Jun, [facility] [place] [facility] [address] [id number] [place] [address]- 6489 Jun, [facility] [place] [facility] [address] [id number] [place] [address]- 3045 Jun, [facility] [place] [facility] [address] [id number] [place] [address]- 4793 Jun, [facility] [place] [facility] [address] [id number] [place] [address]- 7975 Mar, [facility] [place] [facility] [address] [id number] [place] [address]- 9704 Mar, [facility] [place] [facility] [address] [id number] [place] [address]- 8198 Feb, [facility] [place] [facility] [address] [id number] [place] [address]- 2002 Feb, [facility] [place] [facility] [address] [id number] [place] [address]- 4997 Feb, [facility] [place] [facility] [address] [id number] [place] [address]- 7466 Jan, [facility] [place] [facility] [address] [id number] [place] [address]- 0557 Jan, [facility] [place] [facility] [address] [id number] [place] [address]- 5729 Dec, [facility] [place] [facility] [address] [id number] [place] [address]- 0297 Nov, [facility] [place] [facility] [address] [id number] [place] [address] Sep, [facility] [place] [facility] [address] [id number] [place] [address] Aug, [facility] [place] [facility] [address] [id number] [place] [address] Aug, [facility] [place] [facility] [address] [id number] [place] [address] Aug, [facility] [place] [facility] [address] [id number] [place] [address] Jul, [facility] [place] [facility] [address] [id number] [place] [address] Jul, [facility] [place] [facility] [address] [id number] [place] [address] Jul, [facility] [place] [facility] [address] [id number] [place] [address] Jul, [facility] [place] [facility] [address] [id number] [place] [address] Jul, [facility] [place] [facility] [address] [id number] [place] [address] Apr, [facility] [place] [facility] [address] [id number] [place] [address] Apr, [facility] [place] [facility] [address] [id number] [place] [address] Jan, [facility] [place] [facility] [address] [id number] [place] [address] Jan, [facility] [place] [facility] [address] [id number] [place] [address] Dec, [facility] [place] [facility] [address] [id number] [place] [address] Dec, [facility] [address] [id number] [place] [address] Dec, [facility] [place] [facility] [address] [id number] [place] [address] Dec, [facility] [place] [facility] [address] [facility] [id number] [place] [address] Dec, [facility] [place] [facility] [address] [id number] [place] [address] October, [facility] [address] [id number] [place] [address] Aug, [facility] [place] [facility] [address] [id number] [place] [address] Aug, [facility] [address] [facility] [id number] [place] [address] Aug, [facility] [place] [facility] [address] [facility] [id number] [place] [address] Jul, [facility] [address] [id number] [place] [address] May, [facility] [address] [facility] [id number] [place] [address] Apr, [facility] [address] [facility] [id number] [place] [address] 30 May, 2010 [facility] [place] [facility] [address] [id number] [place] [address] May, [facility] [place] [facility] [address] [id number] [place] [address] May, [facility] [place] [facility] [address] [facility] [id number] [place] [address] Mar, [facility] [place] [facility] [address] [facility] [id number] [place] [address] Mar, [facility] [place] [facility] [address] [facility] [id number] [place] [address] Aug, IMMUNIZATIONS No Known Immunizations SOCIAL HISTORY Never Assessed REASON FOR VISIT back pain Pt reports mid back pain since Monday, states it hurts to cough. Describes pain as constant and no relief from pain pills. ANDREEA Coffey PLAN OF CARE Activity Details Follow Up prn Reason: VITAL SIGNS Height 66.5 in 2017-07-13 Weight 168.4 lbs 2017-07-13 Temperature 97.6 degrees Fahrenheit 2017-07-13 Heart Rate 70 bpm 2017-07-13 Respiratory Rate 20 2017-07-13 BMI 26.77 kg/m2 2017-07-13 Blood pressure systolic 100 mmHg 2017-07-13 Blood pressure diastolic 62 mmHg 2017-07-13 MEDICATIONS Medication Instructions Dosage Frequency Start Date End Date Duration Status Percocet 10-325 MG Orally 5 times per day 1 tablet as needed Jun, 28 days Active Fluoxetine HCl 40 mg Orally Once a day 1 capsule 24h Dec, 30 days Active Tessalon Perles 100 MG Orally Three times a day 1 capsule as needed 8h Jun, Jun, 10 days Active Lyrica 150 MG Orally 3 times a day 1 capsule 8h Apr, 30 days Active Vitamin D3 00645 UNIT Orally once weekly 1 capsule May, Active Premarin 0.625 MG/GM Vaginal 3 times a week as directed Mar, Active RESULTS No Results PROCEDURES No Known procedures INSTRUCTIONS MEDICATIONS ADMINISTERED No Known Medications MEDICAL (GENERAL) HISTORY Type Description Date Medical History chronic pain Medical History arthritis Surgical History Nephrectomy - age 3 Surgical History Appendectomy Hospitalization History surgery Hospitalization History childbirth x 3
--- OUTSIDE RECORDS SUMMARY | 2018-06-07 13:37 | XMS REPORT ---
Author Author JUVENTINO JAMES Organization [facility] Address [address] [place] [address] Care Team Providers Care Check Writer Salesperson Name Role Phone ERIKA JUVENTINO Unavailable PROBLEMS Type Condition ICD9-CM Code PSM95-SX Code Onset Dates Condition Status SNOMED Code Problem Scoliosis (and kyphoscoliosis), idiopathic M41.20 Active 74477767 Problem Myalgia M79.1 Active 29272823 Problem Other chronic pain G89.29 Active 12550639 Problem Urinary urgency R39.15 Active 84092419 Problem Dysthymia F34.1 Active 23189578 Problem Varicose veins I86.8 Active 177544139 Problem Need for prophylaxis against urinary tract infection Z29.8 Active 248465043 Problem Abnormal mammogram of left breast R92.8 Active 038210956 Problem Scoliosis, unspecified scoliosis type, unspecified spinal region M41.9 Active 368798909 Problem Arthralgia M25.50 Active 41750885 Problem Calculus of gallbladder without cholecystitis without obstruction K80.20 Active 160741480 Problem Major depressive disorder, single episode, unspecified F32.9 Active 87689883 ALLERGIES No Information ENCOUNTERS Encounter Location Date Diagnosis [facility] [address] [place] [address] 45298- 6584 October, Other chronic pain G89.29 and Myalgia M79.1 [facility] [address] [place] [address] 58252- 1932 Sep, Other chronic pain G89.29 [facility] [id number] [place] [address] 26953- 7715 Aug, Other chronic pain G89.29 [facility] [id number] [place] [address] 54127- 5907 Aug, Scoliosis (and kyphoscoliosis), idiopathic M41.20 [facility] [id number] [place] [address] 55403- 5099 20 Aug, 2017 [facility] [id number] [place] [address] 73690- 5196 12 Aug, 2017 Dysuria R30.0 ; Scoliosis, unspecified scoliosis type, unspecified spinal region M41.9 ; Encounter for therapeutic drug level monitoring Z51.81 and Alcohol use Z78.9 [facility] [id number] [place] [address] 97622- 7566 07 Aug, 2017 Other chronic pain G89.29 [facility] [id number] [place] [address] 32213- 3519 23 Jul, 2017 Chronic urinary tract infection N39.0 [facility] [id number] [place] [address] 55976- 1695 07 Jul, 2017 Other chronic pain G89.29 [facility] [id number] [place] [address] 78977- 7493 Jun, [facility] [id number] [place] [address] 87082- 5183 Jun, [facility] [id number] [place] [address] 25023- 9469 Jun, Acute left-sided thoracic back pain M54.6 [facility] [id number] [place] [address] 45823 -4804 Jun, Cough R05 and Acute bilateral thoracic back pain M54.6 [facility] [id number] [place] [address] 62974 -4791 15 Jun, 2017 Back pain, unspecified back location, unspecified back pain laterality, unspecified chronicity M54.9 and Left flank pain R10.9 [facility] [id number] [place] [address] 94685- 5428 Jun, Other chronic pain G89.29 [facility] [id number] [place] [address] 76061- 0725 Jun, Myalgia M79.1 [facility] [address] [place] [address] 40778- 6546 May, Other chronic pain G89.29 [facility] [address] [place] [address] 64704- 3762 May, Myalgia M79.1 and Fatigue due to exposure, subsequent encounter T73.2XXD [facility] [id number] [place] [address] 53007- 9981 05 May, 2017 Fatigue due to exposure, subsequent encounter T73.2XXD [facility] [id number] [place] [address] 73285- 6832 Apr, Other chronic pain G89.29 and Myalgia M79.1 [facility] [id number] [place] [address] 48206- 2735 Apr, Closed nondisplaced fracture of phalanx of left great toe with routine healing, unspecified phalanx, subsequent encounter S92.405D ; Dysuria R30.0 ; Localized edema R60.0 and Arthralgia M25.50 [facility] [id number] [place] [address] 05513- 3759 Mar, Other chronic pain G89.29 and Myalgia M79.1 [facility] [id number] [place] [address] 16084- 1699 Mar, [facility] [id number] [place] [address] 67791- 4475 Mar, Dysuria R30.0 ; Other chronic pain G89.29 ; Scoliosis, unspecified scoliosis type, unspecified spinal region M41.9 and Chronic urinary tract infection N39.0 [facility] [address] [place] [address] 14223- 6155 Feb, Arthralgia M25.50 and Myalgia M79.1 [facility] [id number] [address]- 7689 Feb, [facility] [address] [address]- 7097 Feb, [facility] [address] [place] [address] 49328- 0546 Feb, Closed compression fracture of L4 lumbar vertebra with routine healing, subsequent encounter S32.040D ; Closed nondisplaced fracture of phalanx of left great toe with routine healing, unspecified phalanx, subsequent encounter S92.405D and Chronic urinary tract infection N39.0 [facility] [address] [place] [address] 83959- 9275 Jan, Closed compression fracture of fourth lumbar vertebra, initial encounter S32.040A [facility] [address] [place] [address] 61458- 0557 Jan, Urinary tract infection, site not specified N39.0 [facility] [address] [address]- 4074 Jan, [facility] [address] [place] [address] 78796- 2291 Jan, [facility] [address] [place] [address] 11860- 1588 Jan, Arthralgia M25.50 and Myalgia M79.1 [facility] [address] [address]- 0083 Jan, Need for prophylaxis against urinary tract infection Z29.8 and Urinary tract infection, site not specified N39.0 [facility] [address] [address]- 4055 Dec, Urinary tract infection, site not specified N39.0 and Need for prophylaxis against urinary tract infection Z29.8 [facility] [id number] [address]- 7325 Dec, Major depressive disorder, single episode, unspecified F32.9 ; Myalgia M79.1 ; Arthralgia M25.50 and alf 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 Z79.891 [facility] [id number] [place] [address] 51629- 7320 Dec, Other chronic pain G89.29 and Dysuria R30.0 [facility] [id number] [place] [address] 50267- 8201 Nov, 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 [facility] [id number] [place] [address] 35129- 4826 Nov, Acute midline low back pain without sciatica M54.5 and 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 [facility] [address] 57365- 5457 Nov, [facility] [address] 12378- 9918 October, [facility] [address] 86703- 5418 October, [facility] [address] 53709- 7790 Sep, Right leg pain M79.604 [facility] [id number] [place] [address] 22782- 1139 Sep, [facility] [id number] [place] [address] 34643- 9416 Aug, Right leg pain M79.604 [facility] [id number] [place] [address] 84795- 5317 Jul, [facility] [address] 77081- 4301 Jul, Arthralgia M25.50 and Right leg pain M79.604 [facility] [id number] [place] [address] 10340- 8644 Jun, Arthralgia M25.50 [facility] [id number] [place] [address] 86326- 3720 Jun, [facility] [address] 65891- 6340 Jun, Right leg pain M79.604 [facility] [address] 93440- 0461 Jun, Right leg pain M79.604 [facility] [id number] [place] [address] 22903- 0884 Jun, Abnormal mammogram of left breast R92.8 [facility] [address] 83517- 8591 May, Routine gynecological examination V72.31 ; Breast cancer screening Z12.39 ; Cervical cancer screening Z12.4 ; Colon cancer screening Z12.11 and Calculus of gallbladder without cholecystitis without obstruction K80.20 [facility] [id number] [place] [address] 67781- 8222 May, Arthralgia M25.50 [facility] [address] 47888- 4958 Apr, Arthralgia M25.50 [facility] [address] 43623- 7668 Apr, Screening, lipid Z13.220 [facility] [id number] [place] [address] 69668- 9282 14 Apr, 2016 Other chronic pain G89.29 ; Scoliosis, unspecified scoliosis type, unspecified spinal region M41.9 ; Right leg pain M79.604 ; Major depressive disorder, single episode, unspecified F32.9 ; Fatigue due to exposure, subsequent encounter T73.2XXD ; Dysthymia F34.1 and Screening, lipid Z13.220 [facility] [id number] [place] [address] 75714- 8471 Apr, Arthralgia M25.50 [facility] [address] [place] [address] 54257- 2735 Mar, Dysthymia 300.4 [facility] [id number] [place] [address] 81054- 0575 Mar, Arthralgia M25.50 [facility] [id number] [place] [address] 79814- 5859 Feb, Arthralgia M25.50 [facility] [id number] [place] [address] 81872- 7342 Jan, Arthralgia M25.50 [facility] [id number] [place] [address] 15263- 2099 Dec, 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 [facility] [id number] [place] [address] 73326- 5468 Dec, [facility] [id number] [place] [address] 74455- 2374 Dec, Right leg pain M79.604 and Scoliosis, unspecified scoliosis type, unspecified spinal region M41.9 [facility] [id number] [place] [address] 64152- 8757 Dec, Right leg pain M79.604 and Scoliosis, unspecified scoliosis type, unspecified spinal region M41.9 [facility] [id number] [place] [address] 05768- 1430 Dec, Arthralgia M25.50 [facility] [id number] [place] [address] 94316- 2394 Nov, Arthralgia M25.50 [facility] [id number] [place] [address] 98064- 3573 October, Arthralgia M25.50 and Scoliosis, unspecified scoliosis type , unspecified spinal region M41.9 [facility] [id number] [place] [address] 56702- 2766 Sep, [facility] [id number] [place] [address] 30437- 9095 Aug, [facility] [id number] [place] [address] 18131- 2166 Aug, Arthralgia M25.50 ; Myalgia M79.1 and Scoliosis M41.9 [facility] [id number] [place] [address] 63397- 4554 Jul, Other chronic pain G89.29 [facility] [id number] [place] [address] 53536- 1609 Jul, Other chronic pain G89.29 [facility] [id number] [place] [address] 16185- 0579 Jul, Impingement syndrome of both shoulders M75.41 [facility] [address] 41604- 8297 Jun, [facility] [id number] [place] [address] 68271- 6104 Jun, [facility] [id number] [place] [address] 02909- 4192 Jun, Scoliosis (and kyphoscoliosis), idiopathic M41.20 and Other chronic pain G89.29 [facility] [address] [place] [address] 07321 -8427 Jun, Upper respiratory tract infection, unspecified type 465.9 and Rhinorrhea J34.89 [facility] [id number] [place] [address] 97591- 1625 May, [facility] [address] 03172- 6345 May, [facility] [facility] [id number] [place] [address] 95639- 2865 Apr, Dysuria R30.0 ; Urinary tract infection, site not specified N39.0 and Hematuria, unspecified R31.9 [facility] [address] [address]- 7943 Apr, [facility] [id number] [place] [address] 707490- 1809 Mar, Family history of early CAD Z82.49 [facility] [id number] [place] [address] 19690- 0494 Mar, Other chronic pain G89.29 [facility] [id number] [place] [address] 08405- 7763 Mar, Impingement syndrome of both shoulders M75.41 [facility] [id number] [place] [address] 96860- 6204 Mar, Other chronic pain G89.29 ; Dysthymia F34.1 ; Family history of early CAD Z82.49 ; Dysuria R30.0 and Other specified disorders of Eustachian tube, right ear H69.81 [facility] [id number] [place] [address] 63889- 9935 Mar, [facility] [id number] [place] [address] 20101- 6093 Feb, [facility] [id number] [place] [address] 57714- 1157 Jan, [facility] [id number] [place] [address] 01478- 3734 Jan, Eustachian tube dysfunction 381.81 and Dysthymia 300.4 [facility] [id number] [place] [address] 52179- 6196 Dec, [facility] [id number] [place] [address] 27613- 4497 Nov, Impingement syndrome of both shoulders 726.2 [facility] [id number] [place] [address] 19908- 1773 Nov, [facility] [id number] [place] [address]- 9501 Nov, [facility] [address] [facility] [id number] [address]- 8811 Nov, Urgency of urination 788.63 [facility] [address] [facility] [id number] [place] [address]- 3552 October, [facility] [address] [facility] [id number] [place] [address], [place] [address]- 3215 October, [facility] [address] [facility] [id number] [place] [address]- 8994 Sep, [facility] [address] [facility] [id number] [place] [address]- 5934 Sep, [facility] [id number] [place] [address]- 3185 Aug, [facility] [id number] [address]- 0115 Aug, [facility] [address] [facility] [id number] [place] [address]- 8621 Aug, [facility] [id number] [address]- 5850 Aug, [facility] [id number] [place] [address]- 3744 Aug, [facility] [address] [facility] [id number] [address]- 1724 Aug, [facility] [address] [facility] [id number] [place] [address]- 2086 Aug, [facility] [address] [facility] [id number] [address]- 0313 Jul, [facility] [address] [facility] [id number] [address]- 4570 Jul, [facility] [id number] [address]- 0683 Jul, 2014 [facility] [place] [facility] [address] [id number] [place] [address]- 4101 Jul, 2014 [facility] [place] [facility] [address] [id number] [place] [address]- 4186 Jul, [facility] [place] [facility] [address] [id number] [place] [address]- 3596 Jul, [facility] [place] [facility] [address] [id number] [place] [address]- 7410 Jun, [facility] [place] [facility] [address] [id number] [place] [address]- 3702 Jun, [facility] [place] [facility] [address] [id number] [place] [address]- 2400 May, [facility] [place] [facility] [address] [id number] [place] [address]- 4653 May, [facility] [place] [facility] [address] [id number] [place] [address]- 8250 May, [facility] [place] [facility] [address] [id number] [place] [address]- 1218 May, [facility] [place] [facility] [address] [facility] [id number] [place] [address]- 3198 Mar, [facility] [place] [facility] [address] [id number] [place] [address]- 6929 Mar, [facility] [place] [facility] [address] [id number] [place] [address]- 7734 Feb, [facility] [place] [facility] [address] [id number] [place] [address]- 2368 Feb, [facility] [place] [facility] [address] [id number] [place] [address]- 5403 Jan, [facility] [place] [facility] [address] [id number] [place] [address]- 8788 Jan, [facility] [place] [facility] [address] [id number] [place] [address]- 8553 Jan, [facility] [place] [facility] [address] [id number] [place] [address]- 6032 Jan, [facility] [place] [facility] [address] [id number] [place] [address]- 6649 Jan, [facility] [place] [facility] [address] [id number] [place] [address]- 8466 Nov, [facility] [place] [facility] [address] [id number] [place] [address]- 6896 Nov, [facility] [place] [facility] [address] [id number] [place] [address]- 9069 October, [facility] [place] [facility] [address] [id number] [place] [address]- 3111 October, [facility] [place] [facility] [address] [id number] [place] [address]- 3394 October, [facility] [place] [facility] [address] [id number] [place] [address]- 5212 October, [facility] [place] [facility] [address] [id number] [place] [address]- 8863 Sep, [facility] [place] [facility] [address] [id number] [place] [address]- 7452 Aug, [facility] [place] [facility] [address] [id number] [place] [address]- 5154 Aug, [facility] [place] [facility] [address] [id number] [place] 8017 Aug, [facility] [place] [facility] [address] [id number] [place] [address]- 6362 Aug, [facility] [place] [facility] [address] [id number] [place] [address]- 1443 Jul, [facility] [place] [facility] [address] [id number] [place] [address]- 8119 Jul, [facility] [place] [facility] [address] [id number] [place] [address]- 9290 Jun, [facility] [place] [facility] [address] [id number] [place] [address]- 9105 Jun, [facility] [place] [facility] [address] [id number] [place] [address]- 6333 Jun, [facility] [place] [facility] [address] [id number] [place] [address]- 3935 Jun, [facility] [place] [facility] [address] [id number] [place] [address]- 8487 Jun, [facility] [place] [facility] [address] [id number] [place] [address]- 1898 Jun, [facility] [place] [facility] [address] [id number] [place] [address]- 1179 Mar, [facility] [place] [facility] [address] [id number] [place] [address]- 4567 Mar, [facility] [place] [facility] [address] [id number] [place] [address]- 8360 Feb, [facility] [place] [facility] [address] [id number] [place] [address]- 5068 Feb, [facility] [place] [facility] [address] [id number] [place] [address]- 3004 Feb, [facility] [place] [facility] [address] [id number] [place] [address]- 2044 Jan, [facility] [place] [facility] [address] [id number] [place] [address]- 9557 Jan, [facility] [place] [facility] [address] [id number] [place] [address]- 3148 Dec, [facility] [place] [facility] [address] [id number] [place] [address]- 5039 Nov, [facility] [place] [facility] [address] [id number] [place] [address]- 9491 Sep, [facility] [address] [id number] [place] [address]- 8837 Aug, [facility] [place] [facility] [address] [id number] [place] [address]- 3806 Aug, [facility] [address] [id number] [place] [address]- 5974 Aug, [facility] [place] [facility] [address] [id number] [place] [address] Jul, [facility] [place] [facility] [address] [id number] [place] [address] Jul, [facility] [place] [place] [facility] [address] [id number] [place] [address] Jul, [facility] [address] [id number] [place] [address] Jul, [facility] [address] [id number] [place] [address] Jul, [facility] [address] [id number] [place] [address] Apr, [facility] [address] [id number] [place] [address] Apr, [facility] [address] [id number] [place] [address] Jan, [facility] [place] [place] [facility] [address] [id number] [place] [address] Jan, [facility] [place] [facility] [address] [id number] [place] [address] Dec, [facility] [place] [facility] [address] [id number] [place] [address] Dec, [facility] [place] [facility] [address] [id number] [place] [address] Dec, [facility] [address] [facility] [id number] [place] [address] Dec, [facility] [address] [facility] [id number] [place] [address] Dec, [facility] [address] [facility] [id number] [place] [address] October, [facility] [address] [facility] [id number] [place] [address] Aug, [facility] [address] [facility] [id number] [place] [address] Aug, [facility] [address] [facility] [id number] [place] [address] Aug, [facility] [address] [facility] [id number] [place] [address] Jul, [facility] [address] [facility] [id number] [address] May, [facility] [address] [facility] [id number] [address] Apr, [facility] [address] [facility] [id number] [address] May, [facility] [address] [id number] [address] May, [facility] [address] [facility] [id number] [address] May, [facility] [address] [facility] [id number] [place] [address] Mar, [facility] [address] [facility] [id number] [place] [address] Mar, [facility] [address] [id number] [address] Aug, IMMUNIZATIONS No Known Immunizations SOCIAL HISTORY Never Assessed REASON FOR VISIT xray results PLAN OF CARE VITAL SIGNS MEDICATIONS Unknown Medications RESULTS No Results PROCEDURES No Known procedures INSTRUCTIONS MEDICATIONS ADMINISTERED No Known Medications MEDICAL (GENERAL) HISTORY Type Description Date Medical History chronic pain Medical History arthritis Surgical History Nephrectomy - age 3 Surgical History Appendectomy Hospitalization History surgery Hospitalization History childbirth x 3
--- OUTSIDE RECORDS SUMMARY | 2018-06-07 13:39 | XMS REPORT ---
Author Author CHUY NGUYEN [facility] Address [address] [place] [address] Care Team Providers Care Administrative Support Manager Name Role Phone CHUY NGUYEN Unavailable PROBLEMS Type Condition ICD9-CM Code ITE37-ZV Code Onset Dates Condition Status SNOMED Code Problem Scoliosis (and kyphoscoliosis), idiopathic M41.20 Active 33789031 Problem Myalgia M79.1 Active 58236061 Problem Other chronic pain G89.29 Active 51483558 Problem Urinary urgency R39.15 Active 16553318 Problem Dysthymia F34.1 Active 50423066 Problem Varicose veins I86.8 Active 813613635 Problem Need for prophylaxis against urinary tract infection Z29.8 Active 628998256 Problem Abnormal mammogram of left breast R92.8 Active 121150421 Problem Scoliosis, unspecified scoliosis type, unspecified spinal region M41.9 Active 992143707 Problem Arthralgia M25.50 Active 62931767 Problem Calculus of gallbladder without cholecystitis without obstruction K80.20 Active 582511510 Problem Major depressive disorder, single episode, unspecified F32.9 Active 86743577 ALLERGIES Substance Reaction Event Type Date Status Sulfamethoxazole-Trimethoprim Unknown Drug Allergy Apr, Active Aspirin Unknown Drug Allergy Apr, Active ENCOUNTERS Encounter Location Date Diagnosis [facility] [id number] [address] October, Other chronic pain G89.29 and Myalgia M79.1 [facility] [address] [place] [address] 05543- 6747 Sep, Other chronic pain G89.29 [facility] [id number] [address] Aug, Other chronic pain G89.29 [facility] [address] [place] [address] 52365- 1775 Aug, Scoliosis (and kyphoscoliosis), idiopathic M41.20 [facility] [id number] [place] [address] 50544- 9778 Aug, [facility] [id number] [place] [address] 17731- 7222 Aug, Dysuria R30.0 ; Scoliosis, unspecified scoliosis type, unspecified spinal region M41.9 ; Encounter for therapeutic drug level monitoring Z51.81 and Alcohol use Z78.9 [facility] [id number] [place] [address] 71514- 6318 07 Aug, 2017 Other chronic pain G89.29 [facility] [id number] [place] [address] 48208- 3832 Jul, Chronic urinary tract infection N39.0 [facility] [id number] [place] [address] 51139- 7261 Jul, Other chronic pain G89.29 [facility] [id number] [place] [address] 01529- 6919 Jun, [place] [place] [id number] [place] [address] 37478- 4966 Jun, [place] [id number] [place] [address] 34440- 9685 Jun, Acute left-sided thoracic back pain M54.6 [facility] [id number] [place] [address] 43400 -0313 Jun, Cough R05 and Acute bilateral thoracic back pain M54.6 [facility] [id number] [place] [address] 80064 -2880 15 Jun, 2017 Back pain, unspecified back location, unspecified back pain laterality, unspecified chronicity M54.9 and Left flank pain R10.9 [facility] [id number] [place] [address] 24724- 9237 Jun, Other chronic pain G89.29 [facility] [address] [place] [address] 96142- 9104 Jun, Myalgia M79.1 [place] [address] [place] [address] 67196- 9161 May, Other chronic pain G89.29 [facility] [id number] [place] [address] 33322- 6799 May, Myalgia M79.1 and Fatigue due to exposure, subsequent encounter T73.2XXD [facility] [id number] [place] [address] 42480- 7905 05 May, 2017 Fatigue due to exposure, subsequent encounter T73.2XXD [facility] [id number] [place] [address] 66321- 4424 Apr, Other chronic pain G89.29 and Myalgia M79.1 [facility] [id number] [place] [address] 12408- 7451 08 Apr, 2017 Closed nondisplaced fracture of phalanx of left great toe with routine healing, unspecified phalanx, subsequent encounter S92.405D ; Dysuria R30.0 ; Localized edema R60.0 and Arthralgia M25.50 [place] [address] [place] [address] 76369- 5050 Mar, Other chronic pain G89.29 and Myalgia M79.1 [place] [address] [place] [address] 73094- 3214 Mar, [id number] [place] [address] 55060- 3472 Mar, Dysuria R30.0 ; Other chronic pain G89.29 ; Scoliosis, unspecified scoliosis type, unspecified spinal region M41.9 and Chronic urinary tract infection N39.0 [place] [facility] [id number] [place] [address] 54620- 8863 Feb, Arthralgia M25.50 and Myalgia M79.1 [facility] [address] [address] 4247 Feb, [facility] [id number] [address]- 9776 Feb, [facility] [address] [address] 1821 Feb, Closed compression fracture of L4 lumbar vertebra with routine healing, subsequent encounter S32.040D ; Closed nondisplaced fracture of phalanx of left great toe with routine healing, unspecified phalanx, subsequent encounter S92.405D and Chronic urinary tract infection N39.0 [facility] [id number] [address]- 5297 Jan, Closed compression fracture of fourth lumbar vertebra, initial encounter S32.040A [facility] [address] [address]- 2542 Jan, Urinary tract infection, site not specified N39.0 [facility] [address] [address]- 0358 Jan, [facility] [address] [address]- 1800 Jan, [facility] [address] [address]- 9602 Jan, Arthralgia M25.50 and Myalgia M79.1 [facility] [id number] [address]- 5331 Jan, Need for prophylaxis against urinary tract infection Z29.8 and Urinary tract infection, site not specified N39.0 [facility] [id number] [address]- 6145 Dec, Urinary tract infection, site not specified N39.0 and Need for prophylaxis against urinary tract infection Z29.8 [facility] [id number] [place] [address] 04666- 7024 Dec, Major depressive disorder, single episode, unspecified F32.9 ; Myalgia M79.1 ; Arthralgia M25.50 and nursing home 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 Z79.891 [facility] [id number] [place] [address] 73950- 6408 Dec, Other chronic pain G89.29 and Dysuria R30.0 [facility] [address] 34070- 7983 Nov, 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 [place] [address] 00001- 8525 Nov, Acute midline low back pain without sciatica M54.5 and 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 [place] [address] 66633- 2299 Nov, [facility] [address] 01547- 8251 October, [facility] [address] 09484- 6972 October, [facility] [id number] [place] [address] 59889- 0100 Sep, Right leg pain M79.604 [place] [facility] [id number] [place] [address] 05371- 1279 Sep, [facility] [id number] [place] [address] 30310- 1706 Aug, Right leg pain M79.604 [facility] [address] 43235- 9516 Jul, [facility] [id number] [place] [address] 85687- 8438 Jul, Arthralgia M25.50 and Right leg pain M79.604 [place] [address] [address]- 6924 Jun, Arthralgia M25.50 [place] [id number] [place] [address] 83159- 2412 Jun, [place] [id number] [place] [address] 41040- 9387 Jun, Right leg pain M79.604 [place] [facility] [id number] [place] [address] 73966- 5806 Jun, Right leg pain M79.604 [facility] [id number] [place] [address] 46193- 6420 Jun, Abnormal mammogram of left breast R92.8 [facility] [id number] [place] [address] 82734- 0837 May, Routine gynecological examination V72.31 ; Breast cancer screening Z12.39 ; Cervical cancer screening Z12.4 ; Colon cancer screening Z12.11 and Calculus of gallbladder without cholecystitis without obstruction K80.20 [facility] [place] [id number] [place] [address] 30375- 6525 May, Arthralgia M25.50 [place] [facility] [id number] [place] [address] 05317- 4745 Apr, Arthralgia M25.50 [place] [place] [id number] [place] [address] 93838- 6847 17 Apr, 2016 Screening, lipid Z13.220 [place] [id number] [place] [address] 38692- 4025 14 Apr, 2016 Other chronic pain G89.29 ; Scoliosis, unspecified scoliosis type, unspecified spinal region M41.9 ; Right leg pain M79.604 ; Major depressive disorder, single episode, unspecified F32.9 ; Fatigue due to exposure, subsequent encounter T73.2XXD ; Dysthymia F34.1 and Screening, lipid Z13.220 [place] [address] [place] [address] 70824- 3876 Apr, Arthralgia M25.50 [facility] [id number] [place] [address] 70933- 5082 Mar, Dysthymia 300.4 [facility] [id number] [place] [address] 60058- 5864 Mar, Arthralgia M25.50 [facility] [id number] [place] [address] 29404- 0908 Feb, Arthralgia M25.50 [facility] [id number] [place] [address] 27066- 2825 Jan, Arthralgia M25.50 [facility] [id number] [place] [address] 15704- 9859 Dec, 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 [facility] [id number] [place] [address] 97558- 6328 Dec, [facility] [id number] [place] [address] 36790- 0475 Dec, Right leg pain M79.604 and Scoliosis, unspecified scoliosis type, unspecified spinal region M41.9 [facility] [id number] [place] [address] 12981- 3437 Dec, Right leg pain M79.604 and Scoliosis, unspecified scoliosis type, unspecified spinal region M41.9 [facility] [address] [place] [address] 68483- 2429 Dec, Arthralgia M25.50 [facility] [id number] [place] [address] 42625- 1097 Nov, Arthralgia M25.50 [facility] [address] [place] [address] 19923- 5324 October, Arthralgia M25.50 and Scoliosis, unspecified scoliosis type , unspecified spinal region M41.9 [facility] [id number] [place] [address] 36059- 6308 Sep, [facility] [address] 09934- 4302 Aug, [facility] [address] 22131- 7442 Aug, Arthralgia M25.50 ; Myalgia M79.1 and Scoliosis M41.9 [facility] [id number] [place] [address] 51777- 1680 Jul, Other chronic pain G89.29 [facility] [address] 35659- 9921 Jul, Other chronic pain G89.29 [place] [address] 78649- 9190 Jul, Impingement syndrome of both shoulders M75.41 [facility] [id number] [place] [address] 21723- 2715 Jun, [facility] [address] 03008- 0412 Jun, [facility] [address] 46279- 8541 Jun, Scoliosis (and kyphoscoliosis), idiopathic M41.20 and Other chronic pain G89.29 [facility] [id number] [place] [address] 76562 -8131 Jun, Upper respiratory tract infection, unspecified type 465.9 and Rhinorrhea J34.89 [facility] [id number] [place] [address] 49776- 3814 May, [facility] [address] 33217- 2470 May, [facility] [address] 14461- 9044 Apr, Dysuria R30.0 ; Urinary tract infection, site not specified N39.0 and Hematuria, unspecified R31.9 [facility] [id number] [place] [address] 62455- 3177 Apr, [facility] [id number] [place] [address] 11228- 2234 Mar, Family history of early CAD Z82.49 [facility] [id number] [place] [address] 51627- 2132 Mar, Other chronic pain G89.29 [facility] [id number] [place] [address] 37451- 5283 Mar, Impingement syndrome of both shoulders M75.41 [facility] [id number] [place] [address] 87077- 8174 Mar, Other chronic pain G89.29 ; Dysthymia F34.1 ; Family history of early CAD Z82.49 ; Dysuria R30.0 and Other specified disorders of Eustachian tube, right ear H69.81 [facility] [id number] [place] [address] 96850- 6196 Mar, [facility] [id number] [place] [address] 73050- 1705 Feb, [facility] [id number] [place] [address] 17802- 8174 Jan, [facility] [id number] [place] [address] 99633- 8624 Jan, Eustachian tube dysfunction 381.81 and Dysthymia 300.4 [facility] [id number] [place] [address] 70319- 1113 Dec, [facility] [id number] [place] [address] 16134- 1928 Nov, Impingement syndrome of both shoulders 726.2 [facility] [address] [id number] [place] [address]- 1041 Nov, [facility] [address] [facility] [id number] [place] [address]- 9542 Nov, [facility] [place] [facility] [address] [facility] [id number] [place] [address]- 8202 Nov, Urgency of urination 788.63 [facility] [place] [facility] [address] [facility] [id number] [place] [address]- 3486 October, [facility] [address] [facility] [id number] [place] [address]- 8918 October, [facility] [address] [facility] [id number] [place] [address]- 7860 Sep, [facility] [id number] [address]- 7253 Sep, [facility] [address] [facility] [id number] [address]- 0679 Aug, [facility] [place] [facility] [address] [facility] [id number] [place] [address]- 1041 Aug, [facility] [address] [facility] [id number] [address]- 9396 Aug, [facility] [place] [facility] [id number] [address]- 3215 Aug, [facility] [place] [facility] [address] [facility] [id number] [address]- 9671 Aug, [facility] [place] [facility] [address] [facility] [id number] [place] [address]- 7574 Aug, [facility] [place] [facility] [address] [facility] [id number] [place] [address]- 2840 Aug, [facility] [place] [facility] [address] [facility] [id number] [address]- 9220 Jul, [facility] [place] [facility] [address] [facility] [id number] [address]- 4185 Jul, 2014 [facility] [place] [facility] [address] [id number] [place] [address]- 0605 Jul, 2014 [facility] [place] [facility] [address] [id number] [place] [address]- 0326 Jul, 2014 [facility] [place] [facility] [address] [facility] [id number] [place] [address]- 8186 Jul, 2014 [facility] [place] [facility] [address] [id number] [place] [address]- 7743 Jul, [facility] [place] [facility] [address] [id number] [place] 9076 Jun, [facility] [place] [facility] [address] [facility] [id number] [place] [address]- 7165 Jun, [facility] [place] [facility] [address] [facility] [id number] [place] [address]- 0261 May, [facility] [place] [facility] [address] [facility] [id number] [place] [address]- 1727 May, [facility] [place] [facility] [address] [facility] [id number] [place] [address]- 2036 May, [facility] [place] [facility] [address] [facility] [id number] [place] [address]- 2146 May, [facility] [place] [facility] [address] [facility] [id number] [place] [address]- 1275 Mar, [facility] [place] [facility] [address] [facility] [id number] [place] [address]- 7780 Mar, [facility] [place] [facility] [address] [id number] [place] [address]- 9143 Feb, [facility] [place] [facility] [address] [facility] [id number] [place] [address]- 0933 Feb, [facility] [place] [facility] [address] [facility] [id number] [place] [address]- 1441 Jan, [facility] [place] [facility] [address] [id number] [place] [address]- 8316 Jan, [facility] [place] [facility] [address] [id number] [place] [address]- 7604 Jan, [facility] [place] [facility] [address] [id number] [place] [address]- 2164 Jan, [facility] [place] [facility] [address] [id number] [place] [address]- 1420 Jan, [facility] [place] [facility] [address] [id number] [place] [address]- 2146 Nov, [facility] [place] [facility] [address] [id number] [place] [address]- 8364 Nov, [facility] [place] [facility] [address] [id number] [place] [address]- 8265 October, [facility] [place] [facility] [address] [id number] [place] [address]- 4692 October, [facility] [place] [facility] [address] [id number] [place] [address]- 0414 October, [facility] [place] [facility] [address] [id number] [place] [address]- 9689 October, [facility] [place] [facility] [address] [id number] [place] [address]- 1623 Sep, [facility] [place] [facility] [address] [id number] [place] [address]- 0714 Aug, [facility] [place] [facility] [address] [id number] [place] [address]- 5334 Aug, [facility] [place] [facility] [address] [id number] [place] [address]- 8127 Aug, [facility] [place] [facility] [address] [id number] [place] [address]- 6205 Aug, [facility] [place] [facility] [address] [id number] [place] [address]- 8741 Jul, [facility] [place] [facility] [address] [id number] [place] [address]- 1679 Jul, [facility] [place] [facility] [address] [id number] [place] [address]- 0100 Jun, [facility] [place] [facility] [address] [id number] [place] [address]- 9598 Jun, [facility] [place] [facility] [address] [id number] [place] [address]- 6064 Jun, [facility] [place] [facility] [address] [id number] [place] [address]- 4606 Jun, [facility] [place] [facility] [address] [id number] [place] [address]- 4809 Jun, [facility] [place] [facility] [address] [id number] [place] [address]- 0765 Jun, [facility] [place] [facility] [address] [id number] [place] [address]- 8858 Mar, [facility] [place] [facility] [address] [id number] [place] [address]- 2802 Mar, [facility] [place] [facility] [address] [facility] [id number] [place] [address]- 5416 Feb, [facility] [place] [facility] [address] [id number] [place] [address]- 0969 Feb, [facility] [place] [facility] [address] [id number] [place] [address]- 7640 Feb, [facility] [place] [facility] [address] [id number] [place] [address]- 0736 Jan, [facility] [place] [facility] [address] [id number] [place] [address]- 8193 Jan, [facility] [place] [facility] [address] [id number] [place] [address]- 0461 Dec, [facility] [place] [facility] [address] [id number] [place] [address]- 4183 Nov, [facility] [place] [facility] [address] [id number] [place] [address]- 8646 Sep, [facility] [place] [facility] [address] [id number] [place] 9588 Aug, [facility] [place] [facility] [address] [id number] [place] [address]- 0953 Aug, [facility] [place] [facility] [address] [id number] [place] [address]- 1805 Aug, [facility] [place] [facility] [address] [id number] [place] [address]- 1154 Jul, [facility] [place] [facility] [address] [id number] [place] [address] Jul, [facility] [place] [facility] [address] [id number] [place] [address] Jul, [facility] [place] [facility] [address] [id number] [place] [address] Jul, [facility] [place] [facility] [address] [id number] [place] [address] Jul, [facility] [place] [facility] [address] [id number] [place] [address] Apr, [facility] [place] [facility] [address] [id number] [place] [address] Apr, [facility] [place] [facility] [address] [id number] [place] [address] Jan, [facility] [place] [facility] [address] [id number] [place] [address] Jan, [facility] [place] [facility] [address] [id number] [place] [address] Dec, [facility] [place] [facility] [address] [id number] [place] [address] Dec, [facility] [place] [facility] [address] [id number] [place] [address] Dec, [facility] [place] [facility] [address] [id number] [place] [address] Dec, [facility] [place] [facility] [address] [id number] [place] [address] Dec, [facility] [place] [facility] [address] [id number] [place] [address] October, [facility] [place] [facility] [address] [id number] [place] [address] Aug, [facility] [place] [facility] [address] [id number] [place] [address] Aug, [facility] [place] [facility] [address] [id number] [place] [address] Aug, [facility] [place] [facility] [address] [id number] [place] [address] Jul, [facility] [place] [facility] [address] [id number] [place] [address] May, [facility] [place] [facility] [address] [id number] [place] [address] Apr, [facility] [place] [facility] [address] [id number] [place] [address] May, [facility] [place] [facility] [address] [id number] [place] [address] May, [facility] [place] [facility] [address] [id number] [place] [address] May, [facility] [place] [facility] [address] [id number] [place] [address] Mar, [facility] [place] [facility] [address] [id number] [place] [address] 254 Mar, [facility] [place] [facility] [address] [facility] [id number] [place] [id number] Aug, IMMUNIZATIONS No Known Immunizations SOCIAL HISTORY Never Assessed REASON FOR VISIT Pain management, concerns with morning swelling, complains of dysuria, ABoggsLPN PLAN OF CARE Activity Details Follow Up 3 Months Reason:arthralgia VITAL SIGNS Height 66.5 in 2017-05-03 Weight 164.7 lbs 2017-05-03 Temperature 98.2 degrees Fahrenheit 2017-05-03 Heart Rate 72 bpm 2017-05-03 Respiratory Rate 18 2017-05-03 BMI 26.18 kg/m2 2017-05-03 Blood pressure systolic 108 mmHg 2017-05-03 Blood pressure diastolic 70 mmHg 2017-05-03 MEDICATIONS Medication Instructions Dosage Frequency Start Date End Date Duration Status Vitamin D-3 36145 Orally once weekly 1 capsule Apr, Active Premarin 0.625 MG/GM Vaginal 3 times a week as directed Mar, Active Lyrica 150 MG Orally 3 times a day 1 capsule 8h Apr, 28 days Active Macrobid 100 MG Orally Once a day 1 capsule with food 24h Dec, May, 30 days Active Percocet 10-325 MG Orally 5 times per day 1 tablet as needed Mar, 28 days Active Fluoxetine HCl 40 mg Orally Once a day 1 capsule 24h Dec, 30 days Active RESULTS No Results PROCEDURES Procedure Date Ordered Result Body Site X-RAY EXAM OF FOOT May 03, 2017 URINALYSIS, AUTO, W/O SCOPE May 03, 2017 URINE CULTURE/COLONY COUNT May 03, 2017 INSTRUCTIONS MEDICATIONS ADMINISTERED No Known Medications MEDICAL (GENERAL) HISTORY Type Description Date Medical History chronic pain Medical History arthritis Surgical History Nephrectomy - age 3 Surgical History Appendectomy Hospitalization History surgery Hospitalization History childbirth x 3
--- OUTSIDE RECORDS SUMMARY | 2018-06-07 13:41 | XMS REPORT ---
Author Author CHUY NGUYEN Organization 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 [id number] [place] [address] 06231- 2985 Jul, [facility] [id number] [place] [address] 89733- 4775 May, [facility] [id number] [place] [address] 31783- 7651 May, Arthralgia M25.50 and Other chronic pain G89.29 [facility] [id number] [place] [address] 33520- 4901 Apr, [facility] [id number] [place] [address] 20573- 7340 Apr, 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 [id number] [place] [address] 56478- 7262 16 Apr, 2018 Arthralgia of multiple joints M25.50 [facility] [id number] [place] [address] 70411- 6757 13 Apr, 2018 Other chronic pain G89.29 and Myalgia M79.1 [place] [address] 54614- 1037 09 Apr, 2018 [place] [address] [id number] [place] [address] 93270- 6323 08 Apr, 2018 Arthralgia of multiple joints M25.50 and Primary osteoarthritis of right knee M17.11 [place] [address] [id number] [place] [address] 80654- 2189 07 Apr, 2018 Acute constipation K59.00 ; Arthralgia M25.50 ; Dysuria R30.0 ; Other chronic pain G89.29 ; Pain in left knee M25.562 and Pain in right knee M25.561 [place] [address] [id number] [place] [address] 57915- 2809 Mar, Other chronic pain G89.29 and Myalgia M79.1 [place] [address] [id number] [place] [address] 09511- 4097 20 Feb, 2018 Trochanteric bursitis, right hip M70.61 ; Chondromalacia, right knee M94.261 and 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 [place] [id number] [place] [address] 99079- 5343 18 Feb, 2018 [place] [address] [id number] [place] [address] 88160- 3152 14 Feb, 2018 Other chronic pain G89.29 and Myalgia M79.1 [place] [address] [id number] [place] [address] 59043- 0965 Jan, [place] [address] [id number] [place] [address] 07388- 7471 Jan, Right hip pain M25.551 and Opioid use disorder, mild, in controlled environment F11.10 [place] [address] [id number] [place] [address] 53014- 0242 Jan, Other chronic pain G89.29 and Myalgia M79.1 [place] [address] 88854- 0734 16 Jan, 2018 Urinary tract infection without hematuria, site unspecified N39.0 [place] [address] 78143- 5002 13 Jan, 2018 Therapeutic drug monitoring Z51.81 ; Scoliosis, unspecified scoliosis type, unspecified spinal region M41.9 ; Chronic prescription opiate use Z79.891 ; Dysthymia F34.1 ; Alcohol use Z78.9 and Frequent urinary tract infections N39.0 [place] [address] 31356- 5196 Dec, Other chronic pain G89.29 and Myalgia M79.[address] 21914- 8761 Dec, Impacted cerumen, right ear H61.21 and Dysfunction of right eustachian tube H69.81 [place] [address] [place] [id number] [place] [address] 02151- 5541 Nov, Myalgia M79.1 and Other chronic pain G89.29 [place] [address] [place] [id number] [place] [address] 24668- 0437 October, Other chronic pain G89.29 and Myalgia M79.1 [place] [address] 00652- 1033 Sep, Other chronic pain G89.29 [place] [address] [place] [id number] [place] [address] 12201- 1879 Aug, Other chronic pain G89.29 [facility] [id number] [place] [address] 12064- 0150 Aug, Scoliosis (and kyphoscoliosis), idiopathic M41.20 [facility] [id number] [place] [address] 63771- 1649 Aug, [facility] [id number] [place] [address] 18606- 6987 Aug, Dysuria R30.0 ; Scoliosis, unspecified scoliosis type, unspecified spinal region M41.9 ; Encounter for therapeutic drug level monitoring Z51.81 and Alcohol use Z78.9 [place] [address] 31032- 0614 07 Aug, 2017 Other chronic pain G89.29 [place] [address] [place] [id number] [place] [address] 55869- 3964 Jul, Chronic urinary tract infection N39.0 [place] [address] 96927- 4059 Jul, Other chronic pain G89.29 [place] [address] 52825- 0676 Jun, [facility] [id number] [place] [address] 91757- 2195 Jun, [place] [address] [place] [id number] [place] [address] 13805- 7961 Jun, Acute left-sided thoracic back pain M54.6 [facility] [id number] [place] [address] 78431 -9249 Jun, Cough R05 and Acute bilateral thoracic back pain M54.6 [facility] [id number] [place] [address] 35033 -2602 15 Jun, 2017 Back pain, unspecified back location, unspecified back pain laterality, unspecified chronicity M54.9 and Left flank pain R10.9 [facility] [address] [place] [address]- 4678 Jun, Other chronic pain G89.29 [place] [address] [id number] [place] [address] 40323- 1447 Jun, Myalgia M79.1 [place] [address] [place] [id number] [place] [address] 61383- 7576 May, Other chronic pain G89.29 [place] [address] [place] [id number] [place] [address] 08602- 4958 May, Myalgia M79.1 and Fatigue due to exposure, subsequent encounter T73.2XXD [place] [address] 72703- 8841 05 May, 2017 Fatigue due to exposure, subsequent encounter T73.2XXD [place] [address] [place] [id number] [place] [address] 03421- 0363 Apr, Other chronic pain G89.29 and Myalgia M79.1 [place] [address] [place] [id number] [place] [address] 63517- 7124 08 Apr, 2017 Closed nondisplaced fracture of phalanx of left great toe with routine healing, unspecified phalanx, subsequent encounter S92.405D ; Dysuria R30.0 ; Localized edema R60.0 and Arthralgia M25.50 [place] [address] [place] [id number] [place] [address] 22492- 8686 Mar, Other chronic pain G89.29 and Myalgia M79.1 [place] [address] [place] [id number] [place] [address] 10321- 9176 Mar, [place] [address] [place] [id number] [place] [address] 97267- 1438 Mar, Dysuria R30.0 ; Other chronic pain G89.29 ; Scoliosis, unspecified scoliosis type, unspecified spinal region M41.9 and Chronic urinary tract infection N39.0 [place] [address] [place] [id number] [place] [address] 06228- 8856 Feb, Arthralgia M25.50 and Myalgia M79.1 [facility] [address] [address]- 0515 Feb, [facility] [address] [address]- 2452 Feb, [facility] [address] [place] [address] 26587- 4232 Feb, Closed compression fracture of L4 lumbar vertebra with routine healing, subsequent encounter S32.040D ; Closed nondisplaced fracture of phalanx of left great toe with routine healing, unspecified phalanx, subsequent encounter S92.405D and Chronic urinary tract infection N39.0 [facility] [address] [address]- 0141 Jan, Closed compression fracture of fourth lumbar vertebra, initial encounter S32.040A [facility] [address], [place] [address]- 6011 Jan, Urinary tract infection, site not specified N39.0 [facility] [address] [address]- 1043 Jan, [facility] [address] [address]- 6371 Jan, [facility] [address] [place] [address]- 5761 Jan, Arthralgia M25.50 and Myalgia M79.1 [facility] [address] [place] [id number] [address]- 9929 Jan, Need for prophylaxis against urinary tract infection Z29.8 and Urinary tract infection, site not specified N39.0 [facility] [address] [place] [address] [id number] [address]- 1451 Dec, Urinary tract infection, site not specified N39.0 and Need for prophylaxis against urinary tract infection Z29.8 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 [place] [address] 35758- 5080 Nov, Acute midline low back pain without sciatica M54.5 and 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 [address] [id number] [place] [address] 14636- 0836 Jul, [facility] [address] [place] [id number] [place] [address] 93057- 2317 Jul, Arthralgia M25.50 and Right leg pain M79.604 [place] [address] [place] [id number] [place] [address] 22020- 2146 Jun, Arthralgia M25.50 [place] [address] [place] [id number] [place] [address] 13669- 5085 Jun, [place] [address] [place] [id number] [place] [address] 06574- 4648 Jun, Right leg pain M79.604 [place] [address] [place] [id number] [place] [address] 24731- 1475 Jun, Right leg pain M79.604 [place] [address] 34110- 3274 Jun, Abnormal mammogram of left breast R92.[address] 90918- 8984 May, Routine gynecological examination V72.31 ; Breast cancer screening Z12.39 ; Cervical cancer screening Z12.4 ; Colon cancer screening Z12.11 and Calculus of gallbladder without cholecystitis without obstruction K80.20 [place] [address] [place] [id number] [place] [address] 81328- 0437 May, Arthralgia M25.50 [place] [address] [place] [id number] [place] [address] 14082- 4452 Apr, Arthralgia M25.50 [place] [address] [place] [id number] [place] [address] 97327- 6015 17 Apr, 2016 Screening, lipid Z13.220 [place] [address] [place] [id number] [place] [address] 50342- 6916 14 Apr, 2016 Other chronic pain G89.29 ; Scoliosis, unspecified scoliosis type, unspecified spinal region M41.9 ; Right leg pain M79.604 ; Major depressive disorder, single episode, unspecified F32.9 ; Fatigue due to exposure, subsequent encounter T73.2XXD ; Dysthymia F34.1 and Screening, lipid Z13.220 [facility] [id number] [place] [address] 99143- 4970 Apr, Arthralgia M25.50 [facility] [address] [place] [id number] [place] [address] 04602- 7202 Mar, Dysthymia 300.4 [facility] [address] [place] [id number] [place] [address] 12321- 0826 Mar, Arthralgia M25.50 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 [address] [place] [id number] [place] [address] 19644- 5007 Dec, Arthralgia M25.50 [facility] [address] [place] [id number] [place] [address] 63891- 7207 Nov, Arthralgia M25.50 [facility] [address] [place] [id number] [place] [address] 66382- 2238 October, Arthralgia M25.50 and Scoliosis, unspecified scoliosis type , unspecified spinal region M41.9 [facility] [id number] [place] [address] 39316- 5668 Sep, [facility] [id number] [place] [address] 57424- 0716 Aug, [facility] [address] [id number] [place] [address] 56529- 6907 Aug, Arthralgia M25.50 ; Myalgia M79.1 and Scoliosis M41.9 [facility] [id number] [place] [address] 07936- 2859 Jul, Other chronic pain G89.29 [place] [address] [place] [id number] [place] [address] 23919- 4815 Jul, Other chronic pain G89.29 [place] [address] 33355- 6825 Jul, Impingement syndrome of both shoulders M75.41 [facility] [address] [id number] [place] [address] 76831- 9512 Jun, [facility] [id number] [place] [address] 06051- 1589 Jun, [facility] [id number] [place] [address] 79953- 4613 Jun, Scoliosis (and kyphoscoliosis), idiopathic M41.20 and Other chronic pain G89.29 [facility] [id number] [place] [address] 90396 -8555 Jun, Upper respiratory tract infection, unspecified type 465.9 and Rhinorrhea J34.89 [facility] [id number] [place] [address] 04037- 2865 May, [facility] [id number] [place] [address] 58913- 7222 May, [facility] [id number] [place] [address] 81061- 4074 Apr, Dysuria R30.0 ; Urinary tract infection, site not specified N39.0 and Hematuria, unspecified R31.9 [facility] [id number] [place] [address] 36853- 8523 Apr, [facility] [id number] [place] [address] 64782- 0761 Mar, Family history of early CAD Z82.49 [place] [id number] [place] [address] 03423- 9902 Mar, Other chronic pain G89.29 [place] [id number] [place] [address] 75024- 3528 Mar, Impingement syndrome of both shoulders M75.41 [place] [id number] [place] [address] 99937- 7754 Mar, Other chronic pain G89.29 ; Dysthymia F34.1 ; Family history of early CAD Z82.49 ; Dysuria R30.0 and Other specified disorders of Eustachian tube, right ear H69.81 [place] [address] [id number] [place] [address] 95646- 2281 Mar, [facility] [id number] [place] [address] 81735- 6042 Feb, [facility] [id number] [place] [address] 13969- 3975 Jan, [facility] [id number] [place] [address] 79347- 6560 Jan, Eustachian tube dysfunction 381.81 and Dysthymia 300.4 [facility] [id number] [place] [address] 41013- 7879 Dec, [facility] [id number] [place] [address] 00391- 2356 Nov, Impingement syndrome of both shoulders 726.2 [facility] [address] [facility] [id number] [place] [address]- 7004 Nov, [facility] [id number] [place] [address]- 0646 Nov, [facility] [id number] [place] [address]- 2462 Nov, Urgency of urination 788.63 [facility] [address] [facility] [id number] [place] [address]- 6986 October, [facility] [id number] [place] [address]- 3153 October, [facility] [id number] [place] [address]- 1003 Sep, [facility] [id number] [place] [address], [place] [address]- 3158 Sep, [facility] [id number] [place] [address]- 6854 Aug, [facility] [id number] [place] [address]- 1598 Aug, [facility] [id number] [place] [address]- 9143 Aug, [facility] [id number], [place] [address]- 8154 Aug, [facility] [id number] [place] [address]- 4896 Aug, [facility] [id number] [place] [address]- 1766 Aug, [facility] [id number]- 7292 Aug, [facility] [id number] [place] [address]- 4585 Jul, [facility] [place] [facility] [address] [id number] [place] [address]- 2050 Jul, 2014 [facility] [place] [facility] [address] [id number] [place]- 8469 Jul, 2014 [facility] [place] [facility] [address] [id number] [place] 1924 Jul, 2014 [facility] [place] [facility] [address] [id number] [place] [address]- 0113 Jul, 2014 [facility] [place] [facility] [address] [id number] [place] [address]- 3379 Jul, [facility] [place] [facility] [address] [id number] [place] [address]- 8983 Jun, [facility] [place] [facility] [address] [facility] [id number] [place] [address]- 8688 Jun, [facility] [place] [facility] [address] [facility] [id number] [place] [address]- 9359 May, [facility] [place] [facility] [address] [facility] [id number] [place] [address]- 2475 May, [facility] [place] [facility] [address] [facility] [id number] [place] [address] May, [facility] [place] [facility] [address] [facility] [id number] [place] [address] May, [facility] [place] [facility] [address] [id number], [place] [address] Mar, [facility] [place] [facility] [address] [id number] [place] [address] Mar, [facility] [place] [facility] [address] [facility] [id number] [place] [address] Feb, [facility] [place] [facility] [address] [id number] [place] [address] 18 Feb, 2014 [facility] [place] [facility] [address] [id number] [place] [address] Jan, [facility] [place] [facility] [address] [id number] [place] [address] Jan, [facility] [place] [facility] [address] [id number] [place] [address] Jan, [facility] [place] [facility] [address] [id number] [place] [address] Jan, [facility] [place] [facility] [address] [id number] [place] [address] Jan, [facility] [place] [facility] [address] [id number] [place] [address] Nov, [facility] [place] [facility] [address] [id number] [place] [address] Nov, [facility] [place] [facility] [address] [id number] [place] [address] October, [facility] [place] [facility] [address] [id number] [place] [address] October, [facility] [place] [facility] [address] [id number] [place] [address] October, [facility] [place] [facility] [address] [id number] [place] [address] October, [facility] [place] [facility] [address] [id number] [place] [address] Sep, [facility] [place] [facility] [address] [id number] [place] [address] Aug, [facility] [place] [facility] [address] [id number] [place] [address] Aug, [facility] [place] [facility] [address] [id number] [place] [address] Aug, [facility] [place] [facility] [address] [id number] [place] [address] Aug, [facility] [place] [facility] [address] [id number] [place] [address] Jul, [facility] [address] [id number] [place] [address] Jul, [facility] [place] [facility] [address] [id number] [place] [address] Jun, [facility] [place] [facility] [address] [id number] [place] [address] Jun, [facility] [place] [facility] [address] [id number] [place] [address] Jun, [facility] [place] [facility] [address] [id number] [place] [address] Jun, [facility] [place] [facility] [address] [id number] [place] [address] Jun, [facility] [place] [facility] [address] [id number] [place] [address] Jun, [facility] [address] [id number] [place] [address] Mar, [facility] [place] [facility] [address] [id number] [place] [address] Mar, [facility] [address] [id number] [place] [address] Feb, [facility] [place] [facility] [address] [address] [id number] [place] [address] Feb, [facility] [place] [facility] [address] [id number] [place] [address] Feb, [facility] [place] [facility] [address] [id number] [place] [address] Jan, [facility] [place] [facility] [address] [id number] [place] [address] Jan, [facility] [place] [facility] [address] [id number] [place] [address] Dec, [facility] [place] [facility] [address] [id number] [place] [address] Nov, [facility] [place] [facility] [address] [id number] [place] [address] Sep, [facility] [place] [facility] [address] [id number] [place] [address] Aug, [facility] [place] [facility] [address] [id number] [place] [address] Aug, [facility] [place] [facility] [address] [id number] [place] [address] Aug, [facility] [place] [facility] [address] [id number] [place] [address] Jul, [facility] [place] [facility] [address] [id number] [place] [address] Jul, [facility] [place] [facility] [address] [id number] [place] [address] Jul, [facility] [place] [facility] [address] [id number] [place] [address] Jul, [facility] [place] [facility] [address] [id number] [place] [address] Jul, [facility] [place] [facility] [address] [id number] [place] [address] Apr, [facility] [place] [facility] [address] [id number] [place] [address] Apr, [facility] [place] [facility] [address] [id number] [place] [address] Jan, [facility] [place] [facility] [address] [id number] [place] [address] Jan, [facility] [place] [facility] [address] [id number] [place] [address] Dec, [facility] [place] [facility] [address] [id number] [place] [address] Dec, [facility] [address] [id number] [place] [address] Dec, [facility] [address] [id number] [place] [address] Dec, [facility] [address] [id number] [place] [address] Dec, [facility] [address] [id number] [place] [address] October, [facility] [address] [id number] [place] [address] Aug, [facility] [address] [id number] [place] [address] Aug, [facility] [address] [id number] [place] [address] Aug, [facility] [address] [id number] [place] [address] Jul, [facility] [address] [id number] [place] [address] May, [facility] [address] [id number] [place] [address] Apr, [facility] [address] [id number] [place] [address] 30 May, 2010 [facility] [address] [id number] [place] [address] May, [facility] [place] [facility] [address] [id number] [place] [address] May, [facility] [address] [id number] [place] [address] Mar, [facility] [address] [id number] [place] [address] Mar, [facility] [address] [facility] [id number] [place] [address] Aug, IMMUNIZATIONS No Known Immunizations SOCIAL HISTORY Never Assessed REASON FOR VISIT PALS PLAN OF CARE VITAL SIGNS MEDICATIONS Medication Instructions Dosage Frequency Start Date End Date Duration Status Lyrica 150 MG Orally 3 times a day 1 capsule 8h Apr, 90 days Active RESULTS No Results PROCEDURES No Known procedures INSTRUCTIONS MEDICATIONS ADMINISTERED No Known Medications MEDICAL (GENERAL) HISTORY Type Description Date Medical History chronic pain Medical History arthritis Surgical History Nephrectomy - age 3 Surgical History Appendectomy Hospitalization History surgery Hospitalization History childbirth x 3
--- OUTSIDE RECORDS SUMMARY | 2018-06-07 13:41 | XMS REPORT ---
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 653471180462618 Problem Primary osteoarthritis of right knee M17.11 Active 553683215164444 Problem Arthralgia M25.50 Active 47076189 Problem Other chronic pain G89.29 Active 23543593 Problem Acute constipation K59.00 Active 487602402 Problem Major depressive disorder, single episode, unspecified F32.9 Active [id number] ALLERGIES No Information ENCOUNTERS Encounter Location Date Diagnosis [facility] [id number] [place] [address] 98776- 9232 Aug, [facility] [id number] [place] [address] 83717- 3927 Jul, [facility] [id number] [place] [address] 62541- 3452 Jun, [facility] [id number] [place] [address] 63340- 2060 May, [facility] [id number] [place] [address] 23549- 6954 May, Arthralgia M25.50 [facility] [id number] [place] [address] 05509- 9365 May, [facility] [id number] [place] [address] 24717- 7429 May, Arthralgia M25.50 and Other chronic pain G89.29 [facility] [id number] [place] [address] 67911- 7122 Apr, [facility] [address] 79342- 8473 Apr, [facility] [address] 82340- 2212 Apr, 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 [facility] [address] 93612- 5009 16 Apr, 2018 Arthralgia of multiple joints M25.50 [facility] [address] 29504- 9488 Apr, Other chronic pain G89.29 and Myalgia M79.1 [facility] [address] 27382- 3412 Apr, [facility] [address] 05924- 3088 Apr, Arthralgia of multiple joints M25.50 and Primary osteoarthritis of right knee M17.11 [facility] [address] 37255- 4073 Apr, Acute constipation K59.00 ; Arthralgia M25.50 ; Dysuria R30.0 ; Other chronic pain G89.29 ; Pain in left knee M25.562 and Pain in right knee M25.561 [facility] [id number] [place] [address] 90952- 4550 Mar, Other chronic pain G89.29 and Myalgia M79.1 [facility] [address] 85133- 6246 Feb, Trochanteric bursitis, right hip M70.61 ; Chondromalacia, right knee M94.261 and 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 [facility] [address] 63170- 7067 18 Feb, 2018 [facility] [id number] [place] [address] 15158- 7729 14 Feb, 2018 Other chronic pain G89.29 and Myalgia M79.1 [facility] [id number] [place] [address] 50164- 1816 Jan, [facility] [id number] [place] [address] 65214- 9390 Jan, Right hip pain M25.551 and Opioid use disorder, mild, in controlled environment F11.[address] 84278- 1488 Jan, Other chronic pain G89.29 and Myalgia M79.1 [facility] [id number] [place] [address] 09573- 6948 16 Jan, 2018 Urinary tract infection without hematuria, site unspecified N39.0 [facility] [id number] [place] [address] 46760- 7601 13 Jan, 2018 Therapeutic drug monitoring Z51.81 ; Scoliosis, unspecified scoliosis type, unspecified spinal region M41.9 ; Chronic prescription opiate use Z79.891 ; Dysthymia F34.1 ; Alcohol use Z78.9 and Frequent urinary tract infections N39.0 [facility] [id number] [place] [address] 79177- 2546 Dec, Other chronic pain G89.29 and Myalgia M79.1 [facility] [id number] [place] [address] 26842- 2268 Dec, Impacted cerumen, right ear H61.21 and Dysfunction of right eustachian tube H69.81 [facility] [id number] [place] [address] 70700- 7492 Nov, Myalgia M79.1 and Other chronic pain G89.29 [facility] [id number] [place] [address] 68310- 5178 October, Other chronic pain G89.29 and Myalgia M79.1 [facility] [id number] [place] [address] 57524- 9694 Sep, Other chronic pain G89.29 [facility] [id number] [place] [address] 87555- 7076 30 Aug, 2017 Other chronic pain G89.29 [facility] [id number] [place] [address] 84520- 4717 Aug, Scoliosis (and kyphoscoliosis), idiopathic M41.20 [facility] [id number] [place] [address] 28948- 6843 Aug, [facility] [id number] [place] [address] 92329- 9447 12 Aug, 2017 Dysuria R30.0 ; Scoliosis, unspecified scoliosis type, unspecified spinal region M41.9 ; Encounter for therapeutic drug level monitoring Z51.81 and Alcohol use Z78.9 [facility] [id number] [place] [address] 17827- 0895 07 Aug, 2017 Other chronic pain G89.29 [facility] [id number] [place] [address] 90700- 9913 23 Jul, 2017 Chronic urinary tract infection N39.0 [facility] [id number] [place] [address] 90100- 4882 Jul, Other chronic pain G89.29 [facility] [id number] [place] [address] 79625- 7894 Jun, [facility] [id number] [place] [address] 21922- 6703 Jun, [facility] [id number] [place] [address] 08547- 4281 Jun, Acute left-sided thoracic back pain M54.6 [facility] [id number] [place] [address] 93462 -6638 Jun, Cough R05 and Acute bilateral thoracic back pain M54.6 [facility] [id number] [place] [address] 19543 -2056 Jun, Back pain, unspecified back location, unspecified back pain laterality, unspecified chronicity M54.9 and Left flank pain R10.9 [facility] [address] 50672- 1504 Jun, Other chronic pain G89.29 [facility] [address] 90717- 3537 Jun, Myalgia M79.1 [facility] [address] 99110- 2297 May, Other chronic pain G89.29 [facility] [address] 62266- 0013 07 May, 2017 Myalgia M79.1 and Fatigue due to exposure, subsequent encounter T73.2XXD [facility] [address] 66921- 8611 05 May, 2017 Fatigue due to exposure, subsequent encounter T73.2XXD [facility] [id number] [place] [address] 09591- 9531 Apr, Other chronic pain G89.29 and Myalgia M79.1 [facility] [address] 39804- 4591 08 Apr, 2017 Closed nondisplaced fracture of phalanx of left great toe with routine healing, unspecified phalanx, subsequent encounter S92.405D ; Dysuria R30.0 ; Localized edema R60.0 and Arthralgia M25.50 [facility] [address] 15357- 2567 Mar, Other chronic pain G89.29 and Myalgia M79.1 [facility] [address] 71337- 7261 Mar, [facility] [address] [address]- 9624 Mar, Dysuria R30.0 ; Other chronic pain G89.29 ; Scoliosis, unspecified scoliosis type, unspecified spinal region M41.9 and Chronic urinary tract infection N39.0 [facility] [address] [address]- 4412 Feb, Arthralgia M25.50 and Myalgia M79.1 [facility] [id number] [place] [address] 93272- 5753 Feb, [facility] [id number] [place] [address] 21238- 5333 Feb, [facility] [id number] [place] [address] 23298- 9733 Feb, Closed compression fracture of L4 lumbar vertebra with routine healing, subsequent encounter S32.040D ; Closed nondisplaced fracture of phalanx of left great toe with routine healing, unspecified phalanx, subsequent encounter S92.405D and Chronic urinary tract infection N39.0 [facility] [id number] [place] [address] 48393- 9839 Jan, Closed compression fracture of fourth lumbar vertebra, initial encounter S32.040A [facility] [address] [address]- 9132 Jan, Urinary tract infection, site not specified N39.0 [facility] [address] [address]- 6603 Jan, [facility] [id number] [place] [address] 68384- 0993 Jan, [facility] [id number] [place] [address] 66436- 3206 Jan, Arthralgia M25.50 and Myalgia M79.1 [facility] [id number] [place] [address] 85957- 8822 Jan, Need for prophylaxis against urinary tract infection Z29.8 and Urinary tract infection, site not specified N39.0 [facility] [id number] [place] [address] 58020- 2080 Dec, Urinary tract infection, site not specified N39.0 and Need for prophylaxis against urinary tract infection Z29.8 [facility] [id number] [place] [address] 80882- 4383 Dec, Major depressive disorder, single episode, unspecified F32.9 ; Myalgia M79.1 ; Arthralgia M25.50 and 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 [facility] [id number] [place] [address] 15061- 9916 Dec, Other chronic pain G89.29 and Dysuria R30.0 [facility] [id number] [place] [address] 18749- 0283 Nov, 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 [facility] [id number] [place] [address] 85817- 6415 Nov, Acute midline low back pain without sciatica M54.5 and 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 [facility] [id number] [place] [address] 62783- 9875 Nov, [facility] [id number] [place] [address] 21907- 9760 October, [facility] [id number] [place] [address] 41437- 7139 October, [facility] [id number] [place] [address] 34894- 8987 Sep, Right leg pain M79.604 [facility] [id number] [place] [address] 86566- 4695 Sep, [facility] [id number] [place] [address] 33147- 2577 Aug, Right leg pain M79.604 [facility] [id number] [place] [address] 97141- 4897 Jul, [facility] [id number] [place] [address] 54103- 6603 Jul, Arthralgia M25.50 and Right leg pain M79.604 [facility] [id number] [place] [address] 82437- 4720 Jun, Arthralgia M25.50 [facility] [id number] [place] [address] 43356- 1245 Jun, [facility] [id number] [place] [address] 87743- 9094 Jun, Right leg pain M79.604 [facility] [id number] [place] [address] 40127- 3033 Jun, Right leg pain M79.604 [facility] [id number] [place] [address] 78920- 0034 Jun, Abnormal mammogram of left breast R92.8 [facility] [id number] [place] [address] 44278- 9462 May, Routine gynecological examination V72.31 ; Breast cancer screening Z12.39 ; Cervical cancer screening Z12.4 ; Colon cancer screening Z12.11 and Calculus of gallbladder without cholecystitis without obstruction K80.20 [facility] [address] [place] [address] 36286- 6816 May, Arthralgia M25.50 [facility] [id number] [place] [address] 85113- 1931 Apr, Arthralgia M25.50 [facility] [id number] [place] [address] 27465- 9628 Apr, Screening, lipid Z13.220 [facility] [id number] [place] [address] 96259- 2067 Apr, Other chronic pain G89.29 ; Scoliosis, unspecified scoliosis type, unspecified spinal region M41.9 ; Right leg pain M79.604 ; Major depressive disorder, single episode, unspecified F32.9 ; Fatigue due to exposure, subsequent encounter T73.2XXD ; Dysthymia F34.1 and Screening, lipid Z13.220 [facility] [address] 58334- 6642 Apr, Arthralgia M25.50 [facility] [address] 06837- 1041 Mar, Dysthymia 300.4 [facility] [id number] [place] [address] 99581- 2965 Mar, Arthralgia M25.50 [facility] [address] 22245- 4273 Feb, Arthralgia M25.50 [facility] [address] 99330- 7507 Jan, Arthralgia M25.50 [facility] [id number] [place] [address] 25979- 5988 Dec, 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 [facility] [id number] [place] [address] 57243- 2245 Dec, [facility] [id number] [place] [address] 51007- 7737 Dec, Right leg pain M79.604 and Scoliosis, unspecified scoliosis type, unspecified spinal region M41.9 [facility] [id number] [place] [address] 35579- 4114 Dec, Right leg pain M79.604 and Scoliosis, unspecified scoliosis type, unspecified spinal region M41.9 [facility] [id number] [place] [address] 25395- 7532 Dec, Arthralgia M25.50 [facility] [id number] [place] [address] 08056- 7459 Nov, Arthralgia M25.50 [facility] [id number] [place] [address] 72718- 6751 October, Arthralgia M25.50 and Scoliosis, unspecified scoliosis type , unspecified spinal region M41.9 [facility] [id number] [place] [address] 57596- 0852 Sep, [facility] [address] 45602- 7773 Aug, [facility] [address] 42919- 6481 Aug, Arthralgia M25.50 ; Myalgia M79.1 and Scoliosis M41.9 [facility] [id number] [place] [address] 87628- 4605 Jul, Other chronic pain G89.29 [facility] [id number] [place] [address] 97828- 1458 Jul, Other chronic pain G89.29 [facility] [id number] [place] [address] 58172- 1813 Jul, Impingement syndrome of both shoulders M75.41 [facility] [id number] [place] [address] 56807- 7536 Jun, [facility] [id number] [place] [address] 28354- 0146 Jun, [facility] [id number] [place] [address] 13623- 3374 Jun, Scoliosis (and kyphoscoliosis), idiopathic M41.20 and Other chronic pain G89.29 [facility] [id number] [place] [address] 28874 -8604 Jun, Upper respiratory tract infection, unspecified type 465.9 and Rhinorrhea J34.89 [facility] [id number] [place] [address] 02555- 7222 May, [facility] [id number] [place] [address] 35608- 3926 May, [facility] [address] 56574- 8193 Apr, Dysuria R30.0 ; Urinary tract infection, site not specified N39.0 and Hematuria, unspecified R31.9 [facility] [address] 11635- 3336 Apr, [facility] [id number] [place] [address] 90787- 8529 Mar, Family history of early CAD Z82.49 [facility] [address] 47853- 0509 Mar, Other chronic pain G89.29 [facility] [id number] [place] [address] 69716- 1276 Mar, Impingement syndrome of both shoulders M75.41 [facility] [id number] [place] [address] 80357- 4490 Mar, Other chronic pain G89.29 ; Dysthymia F34.1 ; Family history of early CAD Z82.49 ; Dysuria R30.0 and Other specified disorders of Eustachian tube, right ear H69.81 [facility] [id number] [place] [address] 85331- 2077 Mar, [facility] [address] 13484- 0327 Feb, [facility] [id number] [place] [address] 92152- 7119 Jan, [facility] [address] 72093- 9836 Jan, Eustachian tube dysfunction 381.81 and Dysthymia 300.4 [facility] [id number] [place] [address] 25324- 3525 Dec, [facility] [id number] [place] [address] 560973- 0280 Nov, Impingement syndrome of both shoulders 726.2 [facility] [id number] [place] [address] 16019- 8692 Nov, [facility] [id number] [place] [address] 16423- 5217 Nov, [facility] [id number] [place] [address] 70619- 1096 Nov, Urgency of urination 788.63 [facility] [id number] [place] [address] 20977- 3876 October, [facility] [id number] [place] [address] 32811- 5546 October, [facility] [id number] [place] [address] 69132- 4294 Sep, [facility] [id number] [place] [address] 90512- 2986 Sep, [facility] [id number] [place] [address] 43915- 7897 Aug, [facility] [id number] [place] [address] 04922- 6622 Aug, [facility] [id number] [place] [address] 887154- 0853 Aug, [facility] [id number] [place] [address] 937584- 9591 Aug, [facility] [address] [address]- 3115 Aug, [facility] [place] [facility] [address] [id number] [place] [address]- 2017 Aug, [facility] [place] [facility] [address] [id number] [place] 2543 Aug, 2014 [facility] [place] [facility] [address] [id number] [place] [address]- 1660 Jul, 2014 [facility] [place] [facility] [address] [id number] [place] [address]- 6734 Jul, 2014 [facility] [place] [facility] [address] [id number] [place] [address]- 3467 Jul, 2014 [facility] [place] [facility] [address] [id number] [place] [address]- 3001 Jul, 2014 [facility] [place] [facility] [address] [facility] [id number] [place] [address]- 6901 Jul, [facility] [place] [facility] [address] [facility] [id number] [place] [address]- 4864 Jul, [facility] [place] [facility] [address] [facility] [id number] [place] [address]- 9038 Jun, [facility] [place] [facility] [address] [facility] [id number] [place] [address]- 2489 Jun, [facility] [place] [facility] [address] [facility] [id number] [place] [address]- 8714 May, [facility] [place] [facility] [address] [id number] [address]- 3249 May, [facility] [place] [facility] [address] [id number] [place] [address]- 3556 May, [facility] [place] [facility] [address] [facility] [id number] [place] 0011 May, [facility] [place] [facility] [address] [facility] [id number] [place] [address]- 8686 Mar, [facility] [place] [facility] [address] [id number] [place] [address]- 3493 Mar, [facility] [place] [facility] [address] [id number] [place] [address]- 4241 Feb, [facility] [place] [facility] [address] [id number] [place] [address]- 4867 Feb, [facility] [place] [facility] [address] [id number] [place] [address]- 7315 Jan, [facility] [place] [facility] [address] [id number] [place] [address]- 2083 Jan, [facility] [place] [facility] [address] [id number] [place] [address]- 0360 Jan, [facility] [place] [facility] [address] [id number] [place] [address]- 6683 Jan, [facility] [place] [facility] [address] [id number] [place] [address]- 2067 Jan, [facility] [place] [facility] [address] [id number] [place] [address]- 1503 Nov, [facility] [place] [facility] [address] [id number] [place] [address]- 6442 Nov, [facility] [place] [facility] [address] [id number] [place] [address]- 7514 October, [facility] [place] [facility] [address] [id number] [place] [address]- 4256 October, [facility] [place] [facility] [address] [id number] [place] [address]- 5309 October, [facility] [place] [facility] [address] [id number] [place] [address]- 5248 October, [facility] [place] [facility] [address] [id number] [place] [address]- 9363 Sep, [facility] [place] [facility] [address] [id number] [place] [address]- 6956 Aug, [facility] [place] [facility] [address] [id number] [place] [address] Aug, [facility] [place] [facility] [address] [id number] [place] [address] Aug, [facility] [place] [facility] [address] [id number] [place] [address] Aug, [facility] [place] [facility] [address] [id number] [place] [address] Jul, [facility] [place] [facility] [address] [id number] [place] [address] Jul, [facility] [place] [facility] [address] [id number] [place] [address] Jun, [facility] [place] [facility] [address] [id number] [place] [address] Jun, [facility] [place] [facility] [address] [id number] [place] [address] Jun, [facility] [place] [facility] [address] [id number] [place] [address] Jun, [facility] [place] [facility] [address] [id number] [place] [address] Jun, [facility] [place] [facility] [address] [id number] [place] [address] Jun, [facility] [place] [facility] [address] [id number] [place] [address] Mar, [facility] [place] [facility] [address] [id number] [place] [address] Mar, [facility] [place] [facility] [address] [id number] [place] [address] Feb, [facility] [place] [facility] [address] [id number] [place] [address] 11 Feb, 2013 [facility] [place] [facility] [address] [id number] [place] [address] Feb, [facility] [address] [id number] [place] [address] 2012 Jan, [facility] [place] [facility] [address] [id number] [place] [address] Jan, [facility] [place] [facility] [address] [id number] [place] [address] Dec, [facility] [place] [facility] [address] [id number] [place] [address] Nov, [facility] [place] [facility] [address] [id number] [place] [address] Sep, [facility] [place] [facility] [address] [id number] [place] [address] Aug, [facility] [place] [facility] [address] [id number] [place] [address] Aug, [facility] [place] [facility] [address] [id number] [place] [address] Aug, [facility] [place] [facility] [address] [id number] [place] [address] Jul, [facility] [place] [facility] [address] [id number] [place] [address] Jul, [facility] [place] [facility] [address] [id number] [place] [address] Jul, [facility] [place] [facility] [address] [id number] [place] [address] Jul, [facility] [place] [facility] [address] [id number] [place] [address] Jul, [facility] [place] [facility] [address] [id number] [place] [address] Apr, [facility] [place] [facility] [address] [id number] [place] [address] Apr, [facility] [place] [facility] [address] [id number] [place] [address] Jan, [facility] [address] [id number] [place] [address] Jan, [facility] [address] [id number] [place] [address] Dec, [facility] [address] [id number] [place] [address] Dec, [facility] [address] [id number] [place] [address] Dec, [facility] [address] [id number] [place] [address] Dec, [facility] [address] [id number] [place] [address] Dec, [facility] [address] [id number] [place] [address] October, [facility] [address] [id number] [place] [address] Aug, [facility] [address] [id number] [place] [address] Aug, [facility] [address] [id number] [place] [address] Aug, [facility] [address] [id number] [place] [address] Jul, [facility] [address] [id number] [place] [address] May, [facility] [place] [facility] [address] [id number] [place] [address] Apr, [facility] [address] [id number] [place] [address] May, [facility] [address] [id number] [place] [address] May, [facility] [address] [facility] [id number] [address] May, [facility] [address] [facility] [id number], [place] [address] Mar, [facility] [address] [facility] [id number][place] [address] Mar, [facility] [address] [facility] [id number][place] [address] Aug, IMMUNIZATIONS No Known Immunizations SOCIAL HISTORY Never Assessed REASON FOR VISIT f/u PLAN OF CARE VITAL SIGNS MEDICATIONS Medication Instructions Dosage Frequency Start Date End Date Duration Status Linzess 145 MCG Orally Once a day 2 capsule 24h Apr, 16 days Active RESULTS No Results PROCEDURES No Known procedures INSTRUCTIONS MEDICATIONS ADMINISTERED No Known Medications MEDICAL (GENERAL) HISTORY Type Description Date Medical History chronic pain Medical History arthritis Surgical History Nephrectomy - age 3 Surgical History Appendectomy Hospitalization History surgery Hospitalization History childbirth x 3
--- OUTSIDE RECORDS SUMMARY | 2018-06-07 13:42 | XMS REPORT ---
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 341000032261607 Problem Primary osteoarthritis of right knee M17.11 Active 392448236767056 Problem Arthralgia M25.50 Active 12796093 Problem Other chronic pain G89.29 Active 30550658 Problem Acute constipation K59.00 Active 556614942 Problem Major depressive disorder, single episode, unspecified F32.9 Active [id number] ALLERGIES No Information ENCOUNTERS Encounter Location Date Diagnosis [facility] [id number] [place] [address] 39578- 2238 Aug, [facility] [id number] [place] [address] 78146- 2163 Jul, [facility] [id number] [place] [address] 62021- 9262 May, [facility] [id number] [place] [address] 05002- 1535 Apr, [facility] [id number] [place] [address] 32892- 0195 Apr, [facility] [id number] [place] [address] 66463- 1866 Apr, 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 [facility] [id number] [place] [address] 61420- 0991 Apr, Arthralgia of multiple joints M25.50 [facility] [id number] [place] [address] 71526- 1886 13 Apr, 2018 Other chronic pain G89.29 and Myalgia M79.1 [facility] [id number] [place] [address] 99928- 0588 09 Apr, 2018 [facility] [id number] [place] [address] 53169- 6645 08 Apr, 2018 Arthralgia of multiple joints M25.50 and Primary osteoarthritis of right knee M17.11 [facility] [id number] [place] [address] 02369- 0060 07 Apr, 2018 Acute constipation K59.00 ; Arthralgia M25.50 ; Dysuria R30.0 ; Other chronic pain G89.29 ; Pain in left knee M25.562 and Pain in right knee M25.561 [facility] [address] 23210- 5426 16 Mar, 2018 Other chronic pain G89.29 and Myalgia M79.1 [facility] [id number] [place] [address] 63413- 1421 20 Feb, 2018 Trochanteric bursitis, right hip M70.61 ; Chondromalacia, right knee M94.261 and 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 [facility] [id number] [place] [address] 69767- 0105 18 Feb, 2018 [facility] [id number] [place] [address] 06148- 2699 14 Feb, 2018 Other chronic pain G89.29 and Myalgia M79.1 [place] [address] 39319- 1773 30 Jan, 2018 [place] [address] 95679- 8113 Jan, Right hip pain M25.551 and Opioid use disorder, mild, in controlled environment F11.10 [facility] [id number] [place] [address] 43770- 5421 Jan, Other chronic pain G89.29 and Myalgia M79.1 [facility] [id number] [place] [address] 10158- 1790 16 Jan, 2018 Urinary tract infection without hematuria, site unspecified N39.0 [facility] [address] 72648- 0093 13 Jan, 2018 Therapeutic drug monitoring Z51.81 ; Scoliosis, unspecified scoliosis type, unspecified spinal region M41.9 ; Chronic prescription opiate use Z79.891 ; Dysthymia F34.1 ; Alcohol use Z78.9 and Frequent urinary tract infections N39.0 [facility] [id number] [place] [address] 39320- 4639 Dec, Other chronic pain G89.29 and Myalgia M79.1 [facility] [address] 87251- 6099 Dec, Impacted cerumen, right ear H61.21 and Dysfunction of right eustachian tube H69.81 [facility] [address] 13265- 1163 Nov, Myalgia M79.1 and Other chronic pain G89.29 [facility] [id number] [place] [address] 42828- 1058 October, Other chronic pain G89.29 and Myalgia M79.1 [facility] [id number] [place] [address] 28455- 4070 Sep, Other chronic pain G89.29 [place] [address] 19273- 2401 Aug, Other chronic pain G89.29 [facility] [id number] [place] [address] 11699- 9745 Aug, Scoliosis (and kyphoscoliosis), idiopathic M41.20 [facility] [address] [id number] [address]- 0914 Aug, [facility] [id number] [place] [address] 75580- 2982 Aug, Dysuria R30.0 ; Scoliosis, unspecified scoliosis type, unspecified spinal region M41.9 ; Encounter for therapeutic drug level monitoring Z51.81 and Alcohol use Z78.9 [facility] [id number] [place] [address] 44377- 5304 07 Aug, 2017 Other chronic pain G89.29 [facility] [id number] [place] [address] 76591- 4416 Jul, Chronic urinary tract infection N39.0 [facility] [id number] [place] [address] 78585- 7776 07 Jul, 2017 Other chronic pain G89.29 [facility] [id number] [place] [address] 58327- 9960 Jun, [facility] [id number] [place] [address] 44519- 5302 Jun, [facility] [id number] [place] [address] 92266- 8917 Jun, Acute left-sided thoracic back pain M54.6 [facility] [id number] [place] [address] 55089 -5046 Jun, Cough R05 and Acute bilateral thoracic back pain M54.6 [facility] [id number] [place] [address] 01531 -0044 15 Jun, 2017 Back pain, unspecified back location, unspecified back pain laterality, unspecified chronicity M54.9 and Left flank pain R10.9 [facility] [id number] [place] [address] 89404- 9330 Jun, Other chronic pain G89.29 [facility] [id number] [place] [address] 32604- 4543 Jun, Myalgia M79.1 [facility] [id number] [place] [address] 28247- 0594 May, Other chronic pain G89.29 [facility] [id number] [place] [address] 48444- 4411 May, Myalgia M79.1 and Fatigue due to exposure, subsequent encounter T73.2XXD [facility] [id number] [place] [address] 35401- 9512 May, Fatigue due to exposure, subsequent encounter T73.2XXD [facility] [address] 28120- 5473 Apr, Other chronic pain G89.29 and Myalgia M79.1 [facility] [id number] [place] [address] 54092- 6867 Apr, Closed nondisplaced fracture of phalanx of left great toe with routine healing, unspecified phalanx, subsequent encounter S92.405D ; Dysuria R30.0 ; Localized edema R60.0 and Arthralgia M25.50 [facility] [id number] [place] [address] 55423- 0899 Mar, Other chronic pain G89.29 and Myalgia M79.1 [facility] [id number] [place] [address] 01302- 5724 Mar, [facility] [id number] [place] [address] 39735- 6083 Mar, Dysuria R30.0 ; Other chronic pain G89.29 ; Scoliosis, unspecified scoliosis type, unspecified spinal region M41.9 and Chronic urinary tract infection N39.0 [facility] [id number] [place] [address] 35650- 2234 Feb, Arthralgia M25.50 and Myalgia M79.1 [facility] [id number] [place] [address] 45388- 3401 Feb, [facility] [address] [facility] [id number] [address]- 0604 Feb, [facility] [address] [facility] [id number] [address]- 7714 Feb, Closed compression fracture of L4 lumbar vertebra with routine healing, subsequent encounter S32.040D ; Closed nondisplaced fracture of phalanx of left great toe with routine healing, unspecified phalanx, subsequent encounter S92.405D and Chronic urinary tract infection N39.0 [facility] [address] [facility] [id number] [address]- 2893 Jan, Closed compression fracture of fourth lumbar vertebra, initial encounter S32.040A [facility] [address] [id number] [address]- 5765 Jan, Urinary tract infection, site not specified N39.0 [facility] [address] [id number] [address]- 8451 Jan, [facility] [address] [id number] [address]- 8855 Jan, [facility] [id number] [address]- 2364 Jan, Arthralgia M25.50 and Myalgia M79.1 [facility] [address] [id number] [address]- 1214 Jan, Need for prophylaxis against urinary tract infection Z29.8 and Urinary tract infection, site not specified N39.0 [facility] [address] [facility] [id number] [address]- 0206 Dec, Urinary tract infection, site not specified N39.0 and Need for prophylaxis against urinary tract infection Z29.8 [facility] [address] [facility] [id number] [address]- 8480 Dec, Major depressive disorder, single episode, unspecified F32.9 ; Myalgia M79.1 ; Arthralgia M25.50 and 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 [facility] [id number] [place] [address] 38415- 0426 Dec, Other chronic pain G89.29 and Dysuria R30.0 [facility] [id number] [place] [address] 99983- 5176 Nov, 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 [facility] [address] 77295- 5926 Nov, Acute midline low back pain without sciatica M54.5 and skilled nursing 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 Z79.891 [facility] [address] 10406- 9268 Nov, [facility] [address] 59661- 3896 October, [facility] [address] 89604- 6865 October, [facility] [address] 57595- 3268 Sep, Right leg pain M79.604 [facility] [id number] [place] [address] 54821- 9546 Sep, [facility] [id number] [place] [address] 80209- 2456 Aug, Right leg pain M79.604 [facility] [id number] [place] [address] 65557- 7756 Jul, [facility] [address] 02157- 4096 Jul, Arthralgia M25.50 and Right leg pain M79.604 [facility] [id number] [place] [address] 26351- 8886 Jun, Arthralgia M25.50 [facility] [id number] [place] [address] 66168- 5760 Jun, [facility] [id number] [place] [address] 61755- 1572 Jun, Right leg pain M79.604 [facility] [id number] [place] [address] 04812- 8642 Jun, Right leg pain M79.604 [facility] [id number] [place] [address] 19723- 5230 Jun, Abnormal mammogram of left breast R92.[address] 51177- 6175 May, Routine gynecological examination V72.31 ; Breast cancer screening Z12.39 ; Cervical cancer screening Z12.4 ; Colon cancer screening Z12.11 and Calculus of gallbladder without cholecystitis without obstruction K80.20 [facility] [id number] [place] [address] 41676- 5719 May, Arthralgia M25.50 [place] [id number] [place] [address] 75819- 8860 Apr, Arthralgia M25.50 [facility] [id number] [place] [address] 19208- 3819 17 Apr, 2016 Screening, lipid Z13.220 [place] [id number] [place] [address] 22368- 6990 14 Apr, 2016 Other chronic pain G89.29 ; Scoliosis, unspecified scoliosis type, unspecified spinal region M41.9 ; Right leg pain M79.604 ; Major depressive disorder, single episode, unspecified F32.9 ; Fatigue due to exposure, subsequent encounter T73.2XXD ; Dysthymia F34.1 and Screening, lipid Z13.220 [facility] [id number] [place] [address] 01136- 9284 Apr, Arthralgia M25.50 [facility] [id number] [place] [address] 45518- 2555 Mar, Dysthymia 300.4 [facility] [id number] [place] [address] 75510- 2105 Mar, Arthralgia M25.50 [facility] [address] [place] [address] 71093- 8461 Feb, Arthralgia M25.50 [facility] [id number] [place] [address] 22247- 9957 Jan, Arthralgia M25.50 [facility] [id number] [place] [address] 46041- 5220 Dec, 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 [facility] [id number] [place] [address] 13234- 0614 Dec, [facility] [id number] [place] [address] 61393- 4997 Dec, Right leg pain M79.604 and Scoliosis, unspecified scoliosis type, unspecified spinal region M41.9 [facility] [id number] [place] [address] 39833- 2086 Dec, Right leg pain M79.604 and Scoliosis, unspecified scoliosis type, unspecified spinal region M41.9 [facility] [address] [place] [address] 01404- 3537 Dec, Arthralgia M25.50 [facility] [id number] [place] [address] 98792- 0190 Nov, Arthralgia M25.50 [facility] [id number] [place] [address] 54008- 0752 October, Arthralgia M25.50 and Scoliosis, unspecified scoliosis type , unspecified spinal region M41.9 [facility] [id number] [place] [address] 98516- 4569 Sep, [facility] [address] [place] [address] 06129- 6651 Aug, [facility] [id number] [place] [address] 04815- 8173 Aug, Arthralgia M25.50 ; Myalgia M79.1 and Scoliosis M41.9 [facility] [id number] [place] [address] 11340- 1308 Jul, Other chronic pain G89.29 [facility] [id number] [place] [address] 21631- 8083 Jul, Other chronic pain G89.29 [facility] [id number] [place] [address] 77241- 1419 Jul, Impingement syndrome of both shoulders M75.41 [facility] [id number] [place] [address] 71546- 2074 Jun, [facility] [id number] [place] [address] 18247- 6550 Jun, [facility] [id number] [place] [address] 06376- 9512 Jun, Scoliosis (and kyphoscoliosis), idiopathic M41.20 and Other chronic pain G89.29 [facility] [address] [place] [address] 16331 -9364 Jun, Upper respiratory tract infection, unspecified type 465.9 and Rhinorrhea J34.89 [facility] [id number] [place] [address] 60883- 5113 May, [facility] [address] 25685- 5950 May, [facility] [id number] [place] [address] 86731- 7440 Apr, Dysuria R30.0 ; Urinary tract infection, site not specified N39.0 and Hematuria, unspecified R31.9 [facility] [id number] [place] [address] 07248- 4013 Apr, [facility] [address] 50389- 6575 Mar, Family history of early CAD Z82.49 [facility] [address] 01727- 7809 Mar, Other chronic pain G89.29 [facility] [address] 99810- 8840 Mar, Impingement syndrome of both shoulders M75.41 [place] [place] [address] 52048- 8071 Mar, Other chronic pain G89.29 ; Dysthymia F34.1 ; Family history of early CAD Z82.49 ; Dysuria R30.0 and Other specified disorders of Eustachian tube, right ear H69.81 [facility] [id number] [place] [address] 26683- 9175 Mar, [facility] [address] 55499- 5344 Feb, [facility] [id number] [place] [address] 44202- 0962 Jan, [facility] [id number] [place] [address] 23934- 7948 Jan, Eustachian tube dysfunction 381.81 and Dysthymia 300.4 [facility] [id number] [place] [address] 59347- 1397 Dec, [facility] [address] 37694- 8382 Nov, Impingement syndrome of both shoulders 726.2 [facility] [id number] [place] [address] 98388- 4214 Nov, [facility] [address] [place] [address]- 3898 Nov, [facility] [address] [facility] [id number] [place] [address]- 4093 Nov, Urgency of urination 788.63 [facility] [address] [id number] [place] [address] 2546 October, [facility] [address] [facility] [id number] [place] [address]- 6726 October, [facility] [address] [id number] [place] [address]- 8047 Sep, [facility] [address] [facility] [id number] [place] [address]- 3566 Sep, [facility] [address] [facility] [id number] [place] [address]- 0897 Aug, [facility] [id number] [place] [address]- 2775 Aug, [facility] [address] [facility] [id number] [place] [address]- 1134 Aug, [facility] [id number] [place] [address]- 9640 Aug, [facility] [id number]- 4317 Aug, [facility] [place] [facility] [id number] [place] [address]- 7708 Aug, [facility] [address] [facility] [id number] [place] [address] 2543 Aug, [facility] [place] [facility] [address] [facility] [id number] [place] [address]- 6114 Jul, [facility] [place] [facility] [address] [facility] [id number] [place] [address]- 0646 Jul, [facility] [place] [facility] [id number] [place] [address]- 1298 Jul, [facility] [place] [facility] [address] [id number] [place] [address]- 1795 Jul, [facility] [place] [facility] [address] [id number] [place] [address]- 9947 Jul, [facility] [place] [facility] [address] [id number] [place] [address]- 2026 Jul, [facility] [place] [facility] [address] [id number] [place] [address]- 1910 Jun, [facility] [place] [facility] [address] [id number] [place] [address]- 0037 Jun, [facility] [place] [facility] [address] [id number] [place] [address]- 3322 May, [facility] [place] [facility] [address] [id number] [place] [address]- 7471 May, [facility] [place] [facility] [address] [id number] [place] [address]- 6575 May, [facility] [place] [facility] [address] [id number] [place] [address]- 7348 May, [facility] [place] [facility] [address] [facility] [id number] [place] [address]- 3728 Mar, [facility] [place] [facility] [address] [id number] [place] [address] Mar, [facility] [place] [facility] [address] [id number] [address] Feb, [facility] [place] [facility] [address] [id number] [place] [address] Feb, [facility] [place] [facility] [address] [facility] [id number] [place] [address] Jan, [facility] [place] [facility] [address] [id number] [place] [address] Jan, [facility] [place] [facility] [address] [id number] [place] [address] Jan, [facility] [place] [facility] [address] [id number] [place] [address] Jan, [facility] [place] [facility] [address] [id number] [place] [address] Jan, [facility] [place] [facility] [address] [id number] [place] [address] Nov, [facility] [place] [facility] [address] [id number] [place] [address] Nov, [facility] [place] [facility] [address] [id number] [place] [address] October, [facility] [place] [facility] [address] [id number] [place] [address] October, [facility] [place] [facility] [address] [id number] [place] [address] October, [facility] [place] [facility] [address] [id number] [place] [address] October, [facility] [place] [facility] [address] [id number] [place] [address] Sep, [facility] [place] [facility] [address] [id number] [place] [address] Aug, [facility] [place] [facility] [address] [id number] [place] [address] Aug, [facility] [place] [facility] [address] [id number] [place] [address] Aug, [facility] [place] [facility] [address] [id number] [place] [address] Aug, [facility] [place] [facility] [address] [id number] [place] [address] Jul, [facility] [place] [facility] [address] [id number] [place] [address] Jul, [facility] [place] [facility] [address] [id number] [place] [address] Jun, [facility] [place] [facility] [address] [id number] [place] [address] Jun, [facility] [place] [facility] [address] [id number] [place] [address] Jun, [facility] [place] [facility] [address] [id number] [place] [address] Jun, [facility] [place] [facility] [address] [id number] [place] [address] Jun, [facility] [place] [facility] [address] [address] [id number] [place] [address] Jun, [facility] [place] [facility] [address] [id number] [place] [address] Mar, [facility] [place] [facility] [address] [id number] [place] [address] Mar, [facility] [place] [facility] [address] [id number] [place] [address] Feb, [facility] [place] [facility] [address] [id number] [place] [address] Feb, [facility] [place] [facility] [address] [id number] [place] [address] Feb, [facility] [place] [facility] [address] [id number], [place] [address] Jan, [facility] [place] [facility] [address] [id number] [place] [address] Jan, [facility] [place] [facility] [address] [id number][place] [address] Dec, [facility] [place] [facility] [address] [id number] [place] [address] Nov, [facility] [place] [facility] [address] [id number] [place] [address] Sep, [facility] [address] [id number] [place] [address] Aug, [facility] [place] [facility] [address] [id number] [place] [address] Aug, [facility] [place] [facility] [address] [id number] [place] [address] Aug, [facility] [place] [facility] [address] [id number] [place] [address] Jul, [facility] [place] [facility] [address] [id number] [place] [address] Jul, [facility] [place] [facility] [address] [id number] [place] [address] Jul, [facility] [place] [facility] [address] [id number] [place] [address] Jul, [facility] [place] [facility] [address] [id number] [place] [address] Jul, [facility] [place] [facility] [address] [id number] [place] [address] Apr, [facility] [address] [id number] [place] [address] Apr, [facility] [place] [facility] [address] [id number] [place] [address] Jan, [facility] [place] [facility] [address] [id number] [place] [address] Jan, [facility] [place] [facility] [address] [id number] [place] [address] Dec, [facility] [place] [facility] [address] [id number] [place] [address] Dec, [facility] [place] [facility] [address] [id number] [place] [address] Dec, [facility] [address] [facility] [id number], [place] [address] Dec, [facility] [address] [facility] [id number], [place] [address] Dec, [facility] [address] [facility] [id number], [place] [address] October, [facility] [address] [facility] [id number], [place] [address] Aug, [facility] [address] [facility] [id number] [place] [address] Aug, [facility] [address] [facility] [id number], [place] [address] Aug, [facility] [address] [id number], [place] [address] Jul, [facility] [id number], [place] [address] May, [facility] [id number], [place] [address] Apr, [facility] [id number], [place] [address] May, [facility] [address] [id number], [place] [address] May, [facility] [id number], [place] [address] May, [facility] [address] [id number], [place] [address] Mar, [facility] [address] [facility] [id number], [place] [address] Mar, [facility] [address] [id number], [place] [address] Aug, IMMUNIZATIONS No Known Immunizations SOCIAL HISTORY Never Assessed REASON FOR VISIT referral PLAN OF CARE VITAL SIGNS MEDICATIONS Unknown Medications RESULTS No Results PROCEDURES No Known procedures INSTRUCTIONS MEDICATIONS ADMINISTERED No Known Medications MEDICAL (GENERAL) HISTORY Type Description Date Medical History chronic pain Medical History arthritis Surgical History Nephrectomy - age 3 Surgical History Appendectomy Hospitalization History surgery Hospitalization History childbirth x 3
--- OUTSIDE RECORDS SUMMARY | 2018-06-07 13:43 | XMS REPORT ---
Author Author CHUY NGUYEN Organization [facility] Address [address] [place] [address] Care Team Providers Care Costuming Supervisor Name Role Phone CHUY NGUYEN Unavailable PROBLEMS Type Condition ICD9-CM Code URO87-AI Code Onset Dates Condition Status SNOMED Code Problem Primary osteoarthritis of right knee M17.11 Active 910938059627009 Problem Acute constipation K59.00 Active 935416081 Problem Other chronic pain G89.29 Active 96719993 Problem Dysthymia F34.1 Active 58344494 Problem Major depressive disorder, single episode, unspecified F32.9 Active 67196297 Problem Arthralgia M25.50 Active 52185141 ALLERGIES No Information ENCOUNTERS Encounter Location Date Diagnosis [place] [address] [address]- [address] May, [place] [address] 69249- [address]01 13 Apr, 2018 Other chronic pain G89.29 and Myalgia M79.1 [place] [address] 95387- 7778 Apr, [place] [address] 31614- 9244 Apr, Arthralgia of multiple joints M25.50 and Primary osteoarthritis of right knee M17.11 [place] [address] 59675- 0142 07 Apr, 2018 Acute constipation K59.00 ; Arthralgia M25.50 ; Dysuria R30.0 ; Other chronic pain G89.29 ; Pain in left knee M25.562 and Pain in right knee M25.561 [place] [address] 9[address]66- 0247 Mar, Other chronic pain G89.29 and Myalgia M79.1 [place] [address] [place] [id number] [place] [address] 96726- 8059 20 Feb, 2018 Trochanteric bursitis, right hip M70.61 ; Chondromalacia, right knee M94.261 and 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 [place] [address] [place] [id number] [place] [address] 44258- 5918 18 Feb, 2018 [place] [address] [place] [id number] [place] [address] 85635- 8735 14 Feb, 2018 Other chronic pain G89.29 and Myalgia M79.1 [place] [address] [place] [id number] [place] [address] 37263- 4243 30 Jan, 2018 [place] [address] [place] [id number] [place] [address] 10993- 7850 Jan, Right hip pain M25.551 and Opioid use disorder, mild, in controlled environment F11.10 [place] [address] [place] [id number] [place] [address] 37668- 0118 Jan, Other chronic pain G89.29 and Myalgia M79.1 [place] [id number] [place] [address] 33763- 7766 16 Jan, 2018 Urinary tract infection without hematuria, site unspecified N39.0 [place] [address] [place] [id number] [place] [address] 51623- 0350 13 Jan, 2018 Therapeutic drug monitoring Z51.81 ; Scoliosis, unspecified scoliosis type, unspecified spinal region M41.9 ; Chronic prescription opiate use Z79.891 ; Dysthymia F34.1 ; Alcohol use Z78.9 and Frequent urinary tract infections N39.0 [place] [address] [place] [address] 26601- 6824 Dec, Other chronic pain G89.29 and Myalgia M79.1 [place] [address] [place] [id number] [place] [address] 73082- 9865 Dec, Impacted cerumen, right ear H61.21 and Dysfunction of right eustachian tube H69.81 [place] [address] [place] [id number] [place] [address] 00825- 2967 Nov, Myalgia M79.1 and Other chronic pain G89.29 [place] [address] 87985- 6957 October, Other chronic pain G89.29 and Myalgia M79.1 [place] [address] 87638- 3265 Sep, Other chronic pain G89.29 [place] [address] [place] [id number] [place] [address] 44013- 7430 Aug, Other chronic pain G89.29 [place] [address] 76867- 2897 Aug, Scoliosis (and kyphoscoliosis), idiopathic M41.20 [place] [address] [place] [id number] [place] [address] 69190- 6275 Aug, [place] [address] 75438- 9045 Aug, Dysuria R30.0 ; Scoliosis, unspecified scoliosis type, unspecified spinal region M41.9 ; Encounter for therapeutic drug level monitoring Z51.81 and Alcohol use Z78.9 [place] [address] [place] [id number] [place] [address] 67102- 0688 Aug, Other chronic pain G89.29 [place] [address] 81159- 5743 Jul, Chronic urinary tract infection N39.0 [place] [address] [place] [id number] [place] [address] 03091- 3106 07 Jul, 2017 Other chronic pain G89.29 [place] [address] [place] [address]- 0068 Jun, [place] [address] [place] [id number] [place] [address] 15264- 3857 Jun, [place] [address] [place] [id number] [place] [address] 67886- 7703 Jun, Acute left-sided thoracic back pain M54.6 [facility] [address] [place] [id number] [place] [address] 60223 -5892 Jun, Cough R05 and Acute bilateral thoracic back pain M54.6 [facility] [address] [place] [id number] [place] [address] 00055 -9889 Jun, Back pain, unspecified back location, unspecified back pain laterality, unspecified chronicity M54.9 and Left flank pain R10.9 [place] [address] [place] [id number] [place] [address] 88025- 8332 Jun, Other chronic pain G89.29 [place] [address] [place] [id number] [place] [address] 00092- 3329 Jun, Myalgia M79.1 [place] [address] [place] [id number] [place] [address] 74020- 2350 13 May, 2017 Other chronic pain G89.29 [place] [address] [place] [id number] [place] [address] 38008- 1738 07 May, 2017 Myalgia M79.1 and Fatigue due to exposure, subsequent encounter T73.2XXD [place] [address] [place] [id number] [place] [address] 42299- 4321 05 May, 2017 Fatigue due to exposure, subsequent encounter T73.2XXD [place] [address] [place] [id number] [place] [address] 52503- 6478 15 Apr, 2017 Other chronic pain G89.29 and Myalgia M79.1 [place] [address] [place] [id number] [place] [address] 05536- 1596 08 Apr, 2017 Closed nondisplaced fracture of phalanx of left great toe with routine healing, unspecified phalanx, subsequent encounter S92.405D ; Dysuria R30.0 ; Localized edema R60.0 and Arthralgia M25.50 [facility] [address] [place] [address] 42764- 8319 18 Mar, 2017 Other chronic pain G89.29 and Myalgia M79.1 [facility] [address] [place] [id number] [place] [address] 24127- 5523 Mar, [place] [address] [place] [id number] [place] [address] 71719- 9463 Mar, Dysuria R30.0 ; Other chronic pain G89.29 ; Scoliosis, unspecified scoliosis type, unspecified spinal region M41.9 and Chronic urinary tract infection N39.0 [place] [address] [place] [address] 96614- 2464 Feb, Arthralgia M25.50 and Myalgia M79.1 [place] [address] [place] [id number] [place] [address] 77486- 6134 13 Feb, 2017 [facility] [address] [place] [id number] [place] [address] 98095- 4850 11 Feb, 2017 [facility] [address] [place] [address] 23534- 2247 06 Feb, 2017 Closed compression fracture of L4 lumbar vertebra with routine healing, subsequent encounter S32.040D ; Closed nondisplaced fracture of phalanx of left great toe with routine healing, unspecified phalanx, subsequent encounter S92.405D and Chronic urinary tract infection N39.0 [facility] [address] [place] [address] 86360- 0514 Jan, Closed compression fracture of fourth lumbar vertebra, initial encounter S32.040A [facility] [address] [place] [address] 50528- 2543 Jan, Urinary tract infection, site not specified N39.0 [place] [address] [place] [address] 04302- 3497 Jan, [place] [address] [place] [id number] [place] [address] 41760- 0915 Jan, [facility] [address] [place] [id number] [place] [address] 27335- 7429 Jan, Arthralgia M25.50 and Myalgia M79.1 [place] [address] [place] [id number] [place] [address] 59577- 0347 Jan, Need for prophylaxis against urinary tract infection Z29.8 and Urinary tract infection, site not specified N39.0 [place] [address] [place] [id number] [place] [address] 20509- 8405 Dec, Urinary tract infection, site not specified N39.0 and Need for prophylaxis against urinary tract infection Z29.8 [place] [address] [place] [id number] [place] [address] 99219- 8302 Dec, Major depressive disorder, single episode, unspecified F32.9 ; Myalgia M79.1 ; Arthralgia M25.50 and penitentiary 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 Z79.891 [place] [address] [place] [address] [place] [address] 55082- 0727 Dec, Other chronic pain G89.29 and Dysuria R30.0 [place] [address] [place] [id number] [place] [address] 39186- 0903 Nov, penitentiary 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 Z79.891 [place] [address] [place] [address] 19935- 8827 Nov, Acute midline low back pain without sciatica M54.5 and penitentiary 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 Z79.891 [facility] [address] [place] [address] 37945- 4051 Nov, [place] [address] [place] [id number] [place] [address] 42054- 8822 October, [facility] [address] [address]- 0419 October, [facility] [address] [place] [id number] [place] [address] 72045- 8304 Sep, Right leg pain M79.604 [facility] [address] [place] [id number] [place] [address] 49344- 2456 Sep, [facility] [address] [place] [id number] [place] [address] 46288- 8529 Aug, Right leg pain M79.604 [facility] [address] [place] [id number] [place] [address] 21435- 7176 Jul, [facility] [address] [place] [address] [place] [address] 94917- 7488 Jul, Arthralgia M25.50 and Right leg pain M79.604 [place] [address] [place] [address] [place] [address] 99470- 2835 Jun, Arthralgia M25.50 [facility] [address] [place] [id number] [place] [address] 02229- 3116 Jun, [facility] [address] [place] [id number] [place] [address] 05376- 7111 Jun, Right leg pain M79.604 [place] [address] [place] [address] [place] [address] 15488- 4779 Jun, Right leg pain M79.604 [facility] [address] [place] [address] 85821- 8675 Jun, Abnormal mammogram of left breast R92.8 [place] [address] [place] [address] [place] [address] 97440- 8660 May, Routine gynecological examination V72.31 ; Breast cancer screening Z12.39 ; Cervical cancer screening Z12.4 ; Colon cancer screening Z12.11 and Calculus of gallbladder without cholecystitis without obstruction K80.20 [place] [address] [place] [address] [place] [address] 57993- 5902 May, Arthralgia M25.50 [facility] [address] [place] [id number] [place] [address] 44739- 6835 Apr, Arthralgia M25.50 [facility] [address] [place] [address] [place] [address] 31336- 9005 Apr, Screening, lipid Z13.220 [facility] [address] [place] [address] [place] [address] 50326- 6152 Apr, Other chronic pain G89.29 ; Scoliosis, unspecified scoliosis type, unspecified spinal region M41.9 ; Right leg pain M79.604 ; Major depressive disorder, single episode, unspecified F32.9 ; Fatigue due to exposure, subsequent encounter T73.2XXD ; Dysthymia F34.1 and Screening, lipid Z13.220 [facility] [address] [place] [id number] [place] [address] 58828- 0008 Apr, Arthralgia M25.50 [facility] [address] [place] [id number] [place] [address] 27116- 9634 Mar, Dysthymia 300.4 [facility] [address] [place] [id number] [place] [address] 47998- 1711 Mar, Arthralgia M25.50 [facility] [address] [place] [address] 43624- 9737 Feb, Arthralgia M25.50 [facility] [address] [place] [id number] [place] [address] 27302- 4468 Jan, Arthralgia M25.50 [facility] [address] [place] [id number] [place] [address] 30366- 0896 Dec, 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 [facility] [address] [place] [address] 62440- 3019 Dec, [facility] [address] [place] [id number] [place] [address] 15481- 9892 Dec, Right leg pain M79.604 and Scoliosis, unspecified scoliosis type, unspecified spinal region M41.9 [place] [address] [place] [address] [place] [address] 85686- 2965 Dec, Right leg pain M79.604 and Scoliosis, unspecified scoliosis type, unspecified spinal region M41.9 [place] [address] [place] [id number] [place] [address] 74448- 1397 Dec, Arthralgia M25.50 [place] [address] [place] [id number] [place] [address] 50365- 6627 Nov, Arthralgia M25.50 [place] [address] [place] [id number] [place] [address] 02658- 1828 October, Arthralgia M25.50 and Scoliosis, unspecified scoliosis type , unspecified spinal region M41.9 [place] [address] [place] [id number] [place] [address] 46717- 3757 Sep, [place] [address] [place] [id number] [place] [address] 24018- 6038 Aug, [place] [address] [place] [id number] [place] [address] 70249- 2761 Aug, Arthralgia M25.50 ; Myalgia M79.1 and Scoliosis M41.9 [place] [address] [place] [id number] [place] [address] 90548- 6165 Jul, Other chronic pain G89.29 [place] [address] [place] [id number] [place] [address] 07975- 5046 Jul, Other chronic pain G89.29 [place] [address] [place] [id number] [place] [address] 33753- 3819 Jul, Impingement syndrome of both shoulders M75.41 [place] [address] [place] [id number] [place] [address] 31837- 6248 Jun, [facility] [address] [place] [id number] [place] [address] 31167- 9455 Jun, [place] [address] 42978- 3646 Jun, Scoliosis (and kyphoscoliosis), idiopathic M41.20 and Other chronic pain G89.29 [facility] [address] 74211 -6635 Jun, Upper respiratory tract infection, unspecified type 465.9 and Rhinorrhea J34.89 [place] [address] 36808- 2470 May, [place] [address] 60001- 7995 May, [place] [address] 20193- 8097 Apr, Dysuria R30.0 ; Urinary tract infection, site not specified N39.0 and Hematuria, unspecified R31.9 [place] [address] 90223- 9162 Apr, [place] [address] 46281- 2943 Mar, Family history of early CAD Z82.49 [place] [address] 49574- 9489 Mar, Other chronic pain G89.29 [place] [address] 86989- 5098 Mar, Impingement syndrome of both shoulders M75.41 [place] [address] 66414- 3444 Mar, Other chronic pain G89.29 ; Dysthymia F34.1 ; Family history of early CAD Z82.49 ; Dysuria R30.0 and Other specified disorders of Eustachian tube, right ear H69.81 [facility] [address] [address]- 3642 Mar, [facility] [address] [place] [id number] [place] [address] 37088- 1591 Feb, [facility] [address] [place] [id number] [place] [address] 48513- 7606 Jan, [facility] [address] [place] [id number] [place] [address] 03240- 1954 Jan, Eustachian tube dysfunction 381.81 and Dysthymia 300.4 [facility] [address] [place] [id number] [place] [address] 26520- 4726 Dec, [facility] [address] [place] [id number] [place] [address] 42103- 3510 Nov, Impingement syndrome of both shoulders 726.2 [facility] [address] [place] [id number] [place] [address] 50638- 4261 Nov, [facility] [address] [place] [id number] [place] [address] 35353- 5432 Nov, [facility] [address] [place] [id number] [place] [address] 91802- 5475 Nov, Urgency of urination 788.63 [facility] [address] [place] [address] 26639- 6050 October, [facility] [id number] [place] [address] 54814- 8924 October, [facility] [address] [address]- 1666 Sep, [facility] [address] [place] [id number] [place] [address] 51175- 2875 Sep, [facility] [address] [address]- 8100 Aug, [facility] [address] [place] [id number] [place] [address]- 0024 Aug, [facility] [place] [facility] [address] [id number] [place] [address]- 2434 Aug, [facility] [place] [facility] [address] [id number] [place] [address]- 0677 Aug, [facility] [place] [facility] [address] [facility] [place] [id number] [place] [address]- 2116 Aug, [facility] [place] [facility] [address] [id number] [place] [address]- 1857 Aug, [facility] [place] [facility] [address] [id number] [place] [address]- 0381 Aug, [facility] [place] [facility] [address] [id number] [place] [address]- 6138 Jul, [facility] [place] [facility] [address] [facility] [place] [id number] [place] [address]- 4356 Jul, [facility] [place] [facility] [address] [facility] [place] [id number] [place] [address]- 7830 Jul, [facility] [place] [facility] [address] [facility] [place] [id number] [place] [address]- 5959 Jul, [facility] [place] [facility] [address] [facility] [place] [id number] [place] [address]- 5394 Jul, [facility] [place] [facility] [address] [facility] [place] [id number] [place] [address]- 8974 Jul, [facility] [place] [facility] [address] [id number] [place] [address]- 4942 Jun, [facility] [place] [facility] [address] [id number] [place] [address]- 8301 Jun, [facility] [place] [facility] [address] [facility] [place] [id number] [place] [address]- 8424 May, [facility] [place] [facility] [address] [facility] [place] [id number] [place] [address]- 2610 May, [facility] [place] [facility] [address] [id number] [place] [address]- 2461 May, [facility] [place] [facility] [address] [id number] [place] [address]- 4219 May, [facility] [place] [facility] [address] [id number] [place] [address]- 5627 Mar, [facility] [place] [facility] [address] [id number] [place] [address]- 4882 Mar, [facility] [place] [facility] [address] [id number] [place] [address]- 3358 Feb, [facility] [place] [facility] [address] [id number] [place] [address]- 7434 Feb, [facility] [place] [facility] [address] [id number] [place] [address]- 4223 Jan, [facility] [place] [facility] [address] [id number] [place] [address]- 8422 Jan, [facility] [place] [facility] [address] [id number] [place] [address]- 1043 Jan, [facility] [place] [facility] [address] [id number] [place] [address]- 5146 Jan, [facility] [place] [facility] [address] [id number] [place] [address]- 9186 Jan, [facility] [place] [facility] [address] [id number] [place] [address]- 5385 Nov, [facility] [place] [facility] [address] [id number] [place] [address]- 9883 Nov, [facility] [place] [facility] [address] [id number] [place] [address]- 7685 October, [facility] [place] [facility] [address] [id number] [place] 0078 October, [facility] [place] [facility] [address] [id number] [place] [address]- 9626 October, [facility] [place] [facility] [address] [id number] [place] [address]- 0390 October, [facility] [place] [facility] [address] [id number] [place] [address] Sep, [facility] [place] [facility] [address] [id number] [place] [address] Aug, [facility] [place] [facility] [address] [id number] [place] [address] Aug, [facility] [place] [facility] [address] [id number] [place] [address] Aug, [facility] [place] [facility] [address] [id number] [place] [address] Aug, [facility] [place] [facility] [address] [id number] [place] [address] Jul, [facility] [place] [facility] [address] [id number] [place] [address] Jul, [facility] [place] [facility] [address] [id number] [place] [address] Jun, [facility] [place] [facility] [address] [id number] [place] [address] Jun, [facility] [place] [facility] [address] [id number] [place] [address] Jun, [facility] [place] [facility] [address] [id number] [place] [address] Jun, [facility] [place] [facility] [address] [id number] [place] [address] Jun, [facility] [place] [facility] [address] [id number] [place] [address] Jun, [facility] [place] [facility] [address] [id number] [address] Mar, [facility] [place] [facility] [address] [id number] [place] [address] Mar, [facility] [address] [id number] [place] [address] Feb, [facility] [place] [facility] [address] [id number] [place] [address] Feb, [facility] [place] [facility] [address] [id number] [place] [address] Feb, [facility] [address] [id number] [place] [address] Jan, [facility] [place] [facility] [address] [id number] [place] [address] Jan, [facility] [address] [id number] [place] [address] Dec, [facility] [address] [id number] [place] [address] Nov, [facility] [address] [id number] [place] [address] Sep, [facility] [address] [id number] [place] [address] Aug, [facility] [place] [facility] [address] [id number] [place] [address] Aug, [facility] [place] [facility] [address] [id number] [place] [address] Aug, [facility] [place] [facility] [address] [id number] [place] [address] Jul, [facility] [place] [facility] [address] [id number] [place] [address] Jul, [facility] [place] [facility] [address] [id number] [place] [address] Jul, [facility] [place] [facility] [address] [id number] [place] [address] Jul, [facility] [address] [id number] [place] [address] Jul, [facility] [place] [facility] [address] [id number] [place] [address] Apr, [facility] [address] [id number] [place] [address] Apr, [facility] [place] [facility] [address] [id number] [place] [address] Jan, [facility] [place] [facility] [address] [id number] [place] [address] Jan, [facility] [place] [facility] [address] [id number] [place] [address] Dec, [facility] [address] [id number] [place] [address] Dec, [facility] [place] [facility] [address] [id number] [place] [address] Dec, [facility] [address] [id number] [place] [address] Dec, [facility] [address] [id number] [place] [address] Dec, [facility] [address] [id number] [place] [address] October, [facility] [place] [facility] [address] [id number] [place] [address] Aug, [facility] [place] [facility] [address] [id number] [place] [address] Aug, [facility] [place] [facility] [address] [id number] [place] [address] Aug, [facility] [place] [facility] [address] [id number] [place] [address] Jul, [facility] [place] [facility] [address] [id number] [address] May, [facility] [address] [id number] [address] Apr, [facility] [id number] [address] May, [facility] [address] [id number] [address] May, [facility] [address] [id number] [address] May, [facility] [id number] [address] Mar, [facility] [id number] [address] Mar, [facility] [address] [id number] [address] Aug, IMMUNIZATIONS No Known Immunizations SOCIAL HISTORY Never Assessed REASON FOR VISIT Controlled Med Refill 05/09/18 PLAN OF CARE VITAL SIGNS MEDICATIONS Medication Instructions Dosage Frequency Start Date End Date Duration Status Lyrica 150 MG Orally 3 times a day 1 capsule 8h Apr, 28 days Active Percocet 10-325 MG Orally 5 times per day 1 tablet as needed Apr, 28 days Active RESULTS No Results PROCEDURES No Known procedures INSTRUCTIONS MEDICATIONS ADMINISTERED No Known Medications MEDICAL (GENERAL) HISTORY Type Description Date Medical History chronic pain Medical History arthritis Surgical History Nephrectomy - age 3 Surgical History Appendectomy Hospitalization History surgery Hospitalization History childbirth x 3
--- OUTSIDE RECORDS SUMMARY | 2018-06-07 13:43 | XMS REPORT ---
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 776559479039808 Problem Primary osteoarthritis of right knee M17.11 Active 117782324058341 Problem Arthralgia M25.50 Active 81320621 Problem Other chronic pain G89.29 Active 49140606 Problem Acute constipation K59.00 Active 670965186 Problem Major depressive disorder, single episode, unspecified F32.9 Active 60595201 ALLERGIES No Information ENCOUNTERS Encounter Location Date Diagnosis [place] [id number] [address]- [address]27 15 Jul, 2018 [place] [address] 30446- 9552 May, [facility] [address] [place] [id number] [place] [address] 32056- 2593 Apr, [facility] [address] [id number] [place] [address] 36697- 7256 Apr, [facility] [address] [place] [id number] [place] [address] 71048- 1455 16 Apr, 2018 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 [facility] [address] [place] [id number] [place] [address] 80524- 0798 16 Apr, 2018 [facility] [address] [place] [place] [id number] [place] [address] 51389- 2550 13 Apr, 2018 Other chronic pain G89.29 and Myalgia M79.1 [place] [address] [place] [id number] [place] [address] 62897- 3058 09 Apr, 2018 [place] [address] 70873- 1322 08 Apr, 2018 Arthralgia of multiple joints M25.50 and Primary osteoarthritis of right knee M17.11 [place] [address] 05315- 9395 07 Apr, 2018 Acute constipation K59.00 ; Arthralgia M25.50 ; Dysuria R30.0 ; Other chronic pain G89.29 ; Pain in left knee M25.562 and Pain in right knee M25.561 [place] [address] 01763- 8067 16 Mar, 2018 Other chronic pain G89.29 and Myalgia M79.1 [place] [address] 05630- 4498 20 Feb, 2018 Trochanteric bursitis, right hip M70.61 ; Chondromalacia, right knee M94.261 and 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 [place] [address] 98348- 0922 18 Feb, 2018 [place] [address] 38376- 7522 14 Feb, 2018 Other chronic pain G89.29 and Myalgia M79.1 [place] [address] [place] [id number] [place] [address] 63583- 5324 30 Jan, 2018 [place] [address] 59224- 4977 Jan, Right hip pain M25.551 and Opioid use disorder, mild, in controlled environment F11.10 [place] [address] 26682- 6410 Jan, Other chronic pain G89.29 and Myalgia M79.1 [place] [address] [address]- 2300 16 Jan, 2018 Urinary tract infection without hematuria, site unspecified N39.0 [place] [address] [place] [id number] [place] [address] 53733- 3524 13 Jan, 2018 Therapeutic drug monitoring Z51.81 ; Scoliosis, unspecified scoliosis type, unspecified spinal region M41.9 ; Chronic prescription opiate use Z79.891 ; Dysthymia F34.1 ; Alcohol use Z78.9 and Frequent urinary tract infections N39.0 [place] [address] [place] [id number] [place] [address] 92136- 2287 Dec, Other chronic pain G89.29 and Myalgia M79.1 [place] [address] [place] [id number] [place] [address] 71814- 0571 Dec, Impacted cerumen, right ear H61.21 and Dysfunction of right eustachian tube H69.81 [place] [address] [place] [id number] [place] [address] 08166- 4753 Nov, Myalgia M79.1 and Other chronic pain G89.29 [place] [address] [place] [id number] [place] [address] 92447- 6531 October, Other chronic pain G89.29 and Myalgia M79.1 [place] [address] [place] [id number] [place] [address] 48247- 1208 Sep, Other chronic pain G89.29 [place] [address] [place] [id number] [place] [address] 37629- 6638 Aug, Other chronic pain G89.29 [place] [address] 84904- 9581 Aug, Scoliosis (and kyphoscoliosis), idiopathic M41.20 [place] [address] [place] [id number] [place] [address] 17378- 8555 Aug, [place] [address] [place] [address]- 1358 12 Aug, 2017 Dysuria R30.0 ; Scoliosis, unspecified scoliosis type, unspecified spinal region M41.9 ; Encounter for therapeutic drug level monitoring Z51.81 and Alcohol use Z78.9 [place] [address] [place] [id number] [place] [address] 56117- 1446 07 Aug, 2017 Other chronic pain G89.29 [place] [address] 06172- 9862 Jul, Chronic urinary tract infection N39.0 [place] [address] [place] [id number] [place] [address] 78756- 3673 Jul, Other chronic pain G89.29 [place] [address] [place] [id number] [place] [address] 17667- 4744 Jun, [place] [address] [place] [id number] [place] [address] 65368- 5553 Jun, [place] [address] [place] [id number] [place] [address] 63274- 3892 Jun, Acute left-sided thoracic back pain M54.6 [facility] [address] [place] [id number] [place] [address] 57262 -5503 Jun, Cough R05 and Acute bilateral thoracic back pain M54.6 [facility] [address] [place] [id number] [place] [address] 47372 -7181 Jun, Back pain, unspecified back location, unspecified back pain laterality, unspecified chronicity M54.9 and Left flank pain R10.9 [place] [address] [place] [id number] [place] [address] 59378- 4242 Jun, Other chronic pain G89.29 [place] [address] [place] [id number] [place] [address] 67492- 5518 Jun, Myalgia M79.1 [place] [address] 73870- 4932 May, Other chronic pain G89.29 [place] [id number] [place] [address] 82069- 2362 May, Myalgia M79.1 and Fatigue due to exposure, subsequent encounter T73.2XXD [place] [address] [place] [id number] [place] [address] 47023- 1109 05 May, 2017 Fatigue due to exposure, subsequent encounter T73.2XXD [place] [address] [place] [id number] [place] [address] 75901- 8992 Apr, Other chronic pain G89.29 and Myalgia M79.1 [place] [address] [place] [id number] [place] [address] 34686- 4607 Apr, Closed nondisplaced fracture of phalanx of left great toe with routine healing, unspecified phalanx, subsequent encounter S92.405D ; Dysuria R30.0 ; Localized edema R60.0 and Arthralgia M25.50 [place] [address] [place] [id number] [place] [address] 74164- 9610 Mar, Other chronic pain G89.29 and Myalgia M79.1 [place] [address] [place] [id number] [place] [address] 66952- 9484 Mar, [place] [address] [place] [id number] [place] [address] 08247- 1841 Mar, Dysuria R30.0 ; Other chronic pain G89.29 ; Scoliosis, unspecified scoliosis type, unspecified spinal region M41.9 and Chronic urinary tract infection N39.0 [place] [address] [place] [id number] [place] [address] 51626- 5742 20 Feb, 2017 Arthralgia M25.50 and Myalgia M79.1 [place] [address] [place] [id number] [place] [address] 61199- 8388 13 Feb, 2017 [place] [address] [place] [id number] [place] [address] 42530- 9480 Feb, [place] [address] [place] [id number] [address]- 0752 Feb, Closed compression fracture of L4 lumbar vertebra with routine healing, subsequent encounter S32.040D ; Closed nondisplaced fracture of phalanx of left great toe with routine healing, unspecified phalanx, subsequent encounter S92.405D and Chronic urinary tract infection N39.0 [place] [id number] [place] [address] 55816- 0660 Jan, Closed compression fracture of fourth lumbar vertebra, initial encounter S32.040A [place] [id number] [place] [address] 96022- 0429 Jan, Urinary tract infection, site not specified N39.0 [place] [id number] [place] [address] 66594- 6446 Jan, [place] [address] [place] [id number] [place] [address] 29472- 8546 Jan, [place] [address] [place] [address] 34065- 0495 Jan, Arthralgia M25.50 and Myalgia M79.1 [place] [address] [place] [address] 02854- 0653 Jan, Need for prophylaxis against urinary tract infection Z29.8 and Urinary tract infection, site not specified N39.0 [place] [address] [address]- 3336 Dec, Urinary tract infection, site not specified N39.0 and Need for prophylaxis against urinary tract infection Z29.8 [place] [address] [place] [address] 28783- 4220 Dec, Major depressive disorder, single episode, unspecified F32.9 ; Myalgia M79.1 ; Arthralgia M25.50 and USP 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 Z79.891 [place] [address] [place] [address] 95573- 7340 Dec, Other chronic pain G89.29 and Dysuria R30.0 [facility] [address] [place] [id number] [place] [address] 63686- 6012 Nov, USP 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 Z79.891 [facility] [address] [place] [id number] [place] [address] 98501- 7840 Nov, Acute midline low back pain without sciatica M54.5 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 [facility] [address] [place] [id number] [place] [address] 89349- 4100 Nov, [facility] [address] [place] [id number] [place] [address] 78370- 2374 October, [facility] [address] [place] [id number] [place] [address] 52351- 6902 October, [facility] [address] [place] [id number] [place] [address] 30793- 8387 Sep, Right leg pain M79.604 [facility] [address] [place] [id number] [place] [address] 45489- 6021 Sep, [facility] [address] [place] [id number] [place] [address] 03970- 4239 Aug, Right leg pain M79.604 [facility] [address] [place] [id number] [place] [address] 48435- 9046 Jul, [facility] [address] [place] [id number] [place] [address] 91988- 9475 Jul, Arthralgia M25.50 and Right leg pain M79.604 [facility] [address] [place] [id number] [place] [address] 04616- 5036 Jun, Arthralgia M25.50 [facility] [address] [place] [id number] [place] [address] 55028- 7866 Jun, [facility] [address] [place] [address] 05197- 2854 Jun, Right leg pain M79.604 [place] [address] 62325- 4046 Jun, Right leg pain M79.604 [place] [address] 97738- 8856 Jun, Abnormal mammogram of left breast R92.[address] 62646- 8139 May, Routine gynecological examination V72.31 ; Breast cancer screening Z12.39 ; Cervical cancer screening Z12.4 ; Colon cancer screening Z12.11 and Calculus of gallbladder without cholecystitis without obstruction K80.[address] 14499- 7440 May, Arthralgia M25.[address] 80565- 1944 Apr, Arthralgia M25.[address] 88631- 2811 17 Apr, 2016 Screening, lipid Z13.[address] 76473- 1155 14 Apr, 2016 Other chronic pain G89.29 ; Scoliosis, unspecified scoliosis type, unspecified spinal region M41.9 ; Right leg pain M79.604 ; Major depressive disorder, single episode, unspecified F32.9 ; Fatigue due to exposure, subsequent encounter T73.2XXD ; Dysthymia F34.1 and Screening, lipid Z13.[address] 63392- 4351 Apr, Arthralgia M25.50 [place] [address] 22794- 2381 12 Mar, 2016 [address] [place] [address]- 9433 Mar, Arthralgia M25.50 [facility] [address] [place] [id number] [place] [address] 81044- 6015 Feb, Arthralgia M25.50 [facility] [address] [place] [id number] [place] [address] 11683- 4134 Jan, Arthralgia M25.50 [facility] [address] [place] [id number] [place] [address] 52561- 5360 Dec, 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 [facility] [address] [place] [id number] [place] [address] 09934- 4371 Dec, [facility] [address] [place] [id number] [place] [address] 42882- 1546 Dec, Right leg pain M79.604 and Scoliosis, unspecified scoliosis type, unspecified spinal region M41.9 [facility] [address] [place] [id number] [place] [address] 66706- 4019 Dec, Right leg pain M79.604 and Scoliosis, unspecified scoliosis type, unspecified spinal region M41.9 [facility] [address] [place] [place] [id number] [place] [address] 73838- 7830 Dec, Arthralgia M25.50 [facility] [address] [place] [id number] [place] [address] 42587- 9014 Nov, Arthralgia M25.50 [facility] [address] [place] [id number] [place] [address] 21087- 0936 October, Arthralgia M25.50 and Scoliosis, unspecified scoliosis type , unspecified spinal region M41.9 [facility] [address] [place] [id number] [place] [address] 34526- 2611 Sep, [facility] [address] [place] [place] [id number] [place] [address] 28471- 2644 Aug, [facility] [address] [place] [id number] [place] [address]- 9485 Aug, Arthralgia M25.50 ; Myalgia M79.1 and Scoliosis M41.9 [facility] [address] [place] [id number] [place] [address] 79996- 3691 Jul, Other chronic pain G89.29 [facility] [address] [place] [id number] [place] [address] 01024- 4175 Jul, Other chronic pain G89.29 [facility] [address] [place] [id number] [place] [address] 28838- 3971 Jul, Impingement syndrome of both shoulders M75.41 [place] [address] 07111- 3462 Jun, [facility] [address] [place] [id number] [place] [address] 33623- 0770 Jun, [facility] [address] 30536- 4138 Jun, Scoliosis (and kyphoscoliosis), idiopathic M41.20 and Other chronic pain G89.29 [facility] [address] [place] [id number] [place] [address] 41028 -9913 Jun, Upper respiratory tract infection, unspecified type 465.9 and Rhinorrhea J34.89 [facility] [address] [place] [id number] [place] [address] 07784- 5402 May, [facility] [address] [place] [id number] [place] [address] 99063- 0897 May, [place] [address] [place] [id number] [place] [address] 36775- 3933 Apr, Dysuria R30.0 ; Urinary tract infection, site not specified N39.0 and Hematuria, unspecified R31.9 [facility] [address] [place] [id number] [place] [address] 76677- 0352 Apr, [facility] [address] [place] [address] [id number] [place] [address]- 7511 Mar, Family history of early CAD Z82.49 [facility] [address] [place] [place] [id number] [place] [address] 53139- 7318 Mar, Other chronic pain G89.29 [facility] [address] [place] [place] [id number] [place] [address] 79016- 0901 Mar, Impingement syndrome of both shoulders M75.41 [facility] [address] [place] [place] [id number] [place] [address] 188923- 3744 Mar, Other chronic pain G89.29 ; Dysthymia F34.1 ; Family history of early CAD Z82.49 ; Dysuria R30.0 and Other specified disorders of Eustachian tube, right ear H69.81 [facility] [address] [place] [place] [id number] [place] [address] 46868- 1768 Mar, [facility] [address] [place] [place] [id number] [place] [address] 68761- 2238 Feb, [facility] [address] [place] [place] [id number] [place] [address] 01761- 3723 Jan, [facility] [address] [place] [id number] [place] [address] 00963- 7877 Jan, Eustachian tube dysfunction 381.81 and Dysthymia 300.4 [facility] [address] [place] [place] [id number] [place] [address] 31453- 3750 Dec, [facility] [address] [id number] [place] [address] 01327- 6673 Nov, Impingement syndrome of both shoulders 726.2 [facility] [address] [id number] [place] [address] 538964- 1917 Nov, [facility] [address] [place] [id number] [place] [address] 328358- 6328 Nov, [facility] [address] [id number] [place] [address] 24165- 5175 Nov, Urgency of urination 788.63 [facility] [place] [facility] [address] [facility] [id number] [place] [address]- 5668 October, [facility] [address] [facility] [id number] [place] [address]- 4901 October, [facility] [id number] [place] [address]- 3821 Sep, [facility] [address] [facility] [id number] [place] [address]- 6309 Sep, [facility] [address] [place] [id number] [place] [address]- 8654 Aug, [facility] [address] [place] [id number] [place] [address]- 6350 Aug, [facility] [address] [address]- 9161 Aug, [facility] [address] [place] [id number] [place] [address]- 5067 Aug, [facility] [address] [id number] [place] [address]- 8970 Aug, [facility] [id number] [address]- 7523 Aug, [facility] [id number] [place] [address]- 8600 Aug, [facility] [address] [facility] [id number], [place] [address]- 2395 Jul, [facility] [id number] [address]- 0630 Jul, [facility] [address] [facility] [id number] 2098 Jul, [facility] [id number] [address]- 9364 Jul, [facility] [place] [facility] [address] [id number] [place] [address]- 6710 Jul, [facility] [place] [facility] [address] [id number] [place] [address]- 4895 Jul, [facility] [place] [facility] [address] [id number] [place] [address]- 9877 Jun, [facility] [place] [facility] [address] [id number] [place] [address]- 6253 Jun, [facility] [place] [facility] [address] [id number] [place] [address]- 5746 May, [facility] [place] [facility] [address] [id number] [place] [address]- 0523 May, [facility] [place] [facility] [address] [id number] [place] [address]- 4148 May, [facility] [place] [facility] [address] [id number] [place] [address]- 8962 May, [facility] [place] [facility] [address] [id number] [place] [address]- 8305 Mar, [facility] [place] [facility] [address] [id number] [place] [address]- 4624 Mar, [facility] [place] [facility] [address] [facility] [id number] [place] [address]- 5455 Feb, [facility] [place] [facility] [address] [id number] [place] [address]- 0326 Feb, [facility] [place] [facility] [address] [id number] [place] [address]- 6366 Jan, [facility] [place] [facility] [address] [id number] [place] [address]- 2002 Jan, [facility] [place] [facility] [address] [id number] [place] [address]- 9332 Jan, [facility] [place] [facility] [address] [id number] [place] [address]- 4756 Jan, [facility] [place] [facility] [address] [id number] [place] [address]- 3534 Jan, [facility] [place] [facility] [address] [id number] [place] [address]- 6817 Nov, [facility] [place] [facility] [address] [id number] [place] [address]- 3436 Nov, [facility] [place] [facility] [address] [id number] [place] [address]- 0121 October, [facility] [place] [facility] [address] [id number] [place] [address] October, [facility] [place] [facility] [address] [id number] [place] [address] October, [facility] [place] [facility] [address] [facility] [id number] [place] [address] October, [facility] [place] [facility] [address] [id number] [place] [address] Sep, [facility] [place] [facility] [address] [id number] [place] [address] Aug, [facility] [place] [facility] [address] [id number] [place] [address] Aug, [facility] [place] [facility] [address] [id number] [place] [address] Aug, [facility] [place] [facility] [address] [id number] [place] [address] Aug, [facility] [place] [facility] [address] [id number] [place] [address] Jul, [facility] [place] [facility] [address] [id number] [place] [address] Jul, [facility] [place] [facility] [address] [facility] [id number] [place] [address] Jun, [facility] [place] [facility] [address] [id number] [place] [address] Jun, [facility] [place] [facility] [address] [id number] [place] [address] Jun, [facility] [place] [facility] [address] [id number] [place] [address] Jun, [facility] [place] [facility] [address] [id number] [place] [address] Jun, [facility] [place] [facility] [address] [id number] [place] [address] Jun, [facility] [place] [facility] [address] [id number] [place] [address] Mar, [facility] [place] [facility] [address] [id number] [place] [address] Mar, [facility] [place] [facility] [address] [id number] [place] [address] Feb, [facility] [place] [facility] [address] [id number] [place] [address] Feb, [facility] [place] [facility] [address] [id number] [place] [address] Feb, [facility] [place] [facility] [address] [id number] [place] [address] Jan, [facility] [place] [facility] [address] [id number] [place] [address] 15 Jan, 2013 [facility] [place] [facility] [address] [id number] [place] [address] Dec, [facility] [place] [facility] [address] [id number] [place] [address] Nov, [facility] [place] [facility] [address] [id number] [place] [address] Sep, [facility] [place] [facility] [address] [id number] [place] [address] Aug, [facility] [place] [facility] [address] [id number] [place] [address] Aug, [facility] [place] [facility] [address] [id number] [place] [address] Aug, [facility] [place] [facility] [address] [id number] [place] [address] Jul, [facility] [place] [facility] [address] [id number] [place] [address] Jul, [facility] [place] [facility] [address] [id number] [place] [address] Jul, [facility] [place] [facility] [address] [id number] [place] [address] Jul, [facility] [place] [facility] [address] [id number] [place] [address] Jul, [facility] [place] [facility] [address] [id number] [place] [address] Apr, [facility] [place] [facility] [address] [id number] [place] [address] Apr, [facility] [place] [facility] [address] [id number] [place] [address] Jan, [facility] [place] [facility] [address] [id number] [place] [address] Jan, [facility] [place] [facility] [address] [id number] [place] [address] Dec, [facility] [place] [facility] [address] [id number] [place] [address] Dec, [facility] [place] [facility] [address] [id number] [place] [address] Dec, [facility] [place] [facility] [address] [id number] [place] [address] Dec, [facility] [place] [facility] [id number] [address] Dec, [facility] [id number] [address] October, [facility] [id number] [address] Aug, [facility] [id number] [address] Aug, [facility] [id number] [place] [address] Aug, [facility] [id number] [place] [address] Jul, [facility] [id number], [place] [address] May, [facility] [id number] [place] [address] Apr, [facility] [id number], [place] [address] May, [facility] [id number] [place] [address] May, [facility] [id number] [place] [address] May, [facility] [id number] [place] [address] Mar, [facility] [id number] [address] Mar, [facility] [id number] [address] Aug, IMMUNIZATIONS No Known Immunizations SOCIAL HISTORY Never Assessed REASON FOR VISIT Repository Medication/Samples PLAN OF CARE VITAL SIGNS MEDICATIONS Unknown Medications RESULTS No Results PROCEDURES No Known procedures INSTRUCTIONS MEDICATIONS ADMINISTERED No Known Medications MEDICAL (GENERAL) HISTORY Type Description Date Medical History chronic pain Medical History arthritis Surgical History Nephrectomy - age 3 Surgical History Appendectomy Hospitalization History surgery Hospitalization History childbirth x 3
--- OUTSIDE RECORDS SUMMARY | 2018-06-07 13:44 | XMS REPORT ---
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 Name Role Phone OSCAR REED Unavailable PROBLEMS Type Condition ICD9-CM Code PZT91-DQ Code Onset Dates Condition Status SNOMED Code Problem Primary osteoarthritis of right knee M17.11 Active 091367803289526 Problem Acute constipation K59.00 Active 169686858 Problem Other chronic pain G89.29 Active 65800260 Problem Dysthymia F34.1 Active 69393057 Problem Major depressive disorder, single episode, unspecified F32.9 Active 08266646 Problem Arthralgia M25.50 Active 39459208 ALLERGIES Substance Reaction Event Type Date Status Sulfamethoxazole-Trimethoprim Unknown Drug Allergy Apr, Active Aspirin Unknown Drug Allergy Apr, Active ENCOUNTERS Encounter Location Date Diagnosis [place] [id number] [place] [address] 21180- 6659 May, [place] [id number] [place] [address] 91011- 6726 Apr, [facility] [id number] [place] [address] 00116- 4976 Apr, Arthralgia of multiple joints M25.50 and Primary osteoarthritis of right knee M17.11 [facility] [id number] [place] [address] 32230- 5499 Apr, Acute constipation K59.00 ; Arthralgia M25.50 ; Dysuria R30.0 ; Other chronic pain G89.29 ; Pain in left knee M25.562 and Pain in right knee M25.561 [facility] [id number] [place] [address] 50029- 5659 Mar, Other chronic pain G89.29 and Myalgia M79.1 [place] [id number] [place] [address] 06495- 1432 20 Feb, 2018 Trochanteric bursitis, right hip M70.61 ; Chondromalacia, right knee M94.261 and 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 [place] [id number] [place] [address] 82421- 3470 18 Feb, 2018 [place] [address] 77344- 1473 14 Feb, 2018 Other chronic pain G89.29 and Myalgia M79.1 [place] [address] 46745- 8551 Jan, [place] [address] 24791- 5276 Jan, Right hip pain M25.551 and Opioid use disorder, mild, in controlled environment F11.10 [place] [address] 37991- 9855 Jan, Other chronic pain G89.29 and Myalgia M79.1 [place] [id number] [place] [address] 64879- 8216 Jan, Urinary tract infection without hematuria, site unspecified N39.0 [place] [id number] [place] [address] 03231- 5183 Jan, Therapeutic drug monitoring Z51.81 ; Scoliosis, unspecified scoliosis type, unspecified spinal region M41.9 ; Chronic prescription opiate use Z79.891 ; Dysthymia F34.1 ; Alcohol use Z78.9 and Frequent urinary tract infections N39.0 [place] [id number] [place] [address] 54591- 1146 Dec, Other chronic pain G89.29 and Myalgia M79.1 [place] [address] 59569- 8930 11 Augustus, 2018 Impacted cerumen, right ear H61.21 and Dysfunction of right eustachian tube H69.81 [place] [id number] [place] [address] 83289- 5630 Nov, Myalgia M79.1 and Other chronic pain G89.29 [place] [id number] [place] [address] 14799- 2010 October, Other chronic pain G89.29 and Myalgia M79.1 [place] [id number] [place] [address] 54913- 4382 Sep, Other chronic pain G89.29 [place] [address] 75028- 0032 Aug, Other chronic pain G89.29 [place] [id number] [place] [address] 79928- 3345 Aug, Scoliosis (and kyphoscoliosis), idiopathic M41.20 [place] [id number] [place] [address] 54382- 2861 Aug, [place] [address] 85787- 1289 Aug, Dysuria R30.0 ; Scoliosis, unspecified scoliosis type, unspecified spinal region M41.9 ; Encounter for therapeutic drug level monitoring Z51.81 and Alcohol use Z78.9 [place] [id number] [place] [address] 10260- 6115 Aug, Other chronic pain G89.29 [place] [id number] [place] [address] 44451- 6460 Jul, Chronic urinary tract infection N39.0 [place] [id number] [place] [address] 56806- 9810 07 Jul, 2017 Other chronic pain G89.29 [place] [id number] [place] [address] 22857- 9340 Jun, [place] [id number] [address]- 3002 Jun, [place] [id number] [place] [address] 81647- 6847 Jun, Acute left-sided thoracic back pain M54.6 [facility] [id number] [place] [address] 94034 -4585 18 Jun, 2017 Cough R05 and Acute bilateral thoracic back pain M54.6 [facility] [id number] [place] [address] 49698 -4751 15 Jun, 2017 Back pain, unspecified back location, unspecified back pain laterality, unspecified chronicity M54.9 and Left flank pain R10.9 [place] [id number] [place] [address] 77386- 5342 Jun, Other chronic pain G89.29 [place] [id number] [place] [address] 96274- 1393 03 Jun, 2017 Myalgia M79.1 [place] [id number] [place] [address] 59829- 9610 May, Other chronic pain G89.29 [place] [id number] [place] [address] 31183- 2115 07 May, 2017 Myalgia M79.1 and Fatigue due to exposure, subsequent encounter T73.2XXD [place] [id number] [place] [address] 15799- 8651 05 May, 2017 Fatigue due to exposure, subsequent encounter T73.2XXD [place] [id number] [place] [address] 79333- 3006 15 Apr, 2017 Other chronic pain G89.29 and Myalgia M79.1 [place] [id number] [place] [address] 22367- 2188 08 Apr, 2017 Closed nondisplaced fracture of phalanx of left great toe with routine healing, unspecified phalanx, subsequent encounter S92.405D ; Dysuria R30.0 ; Localized edema R60.0 and Arthralgia M25.50 [facility] [id number] [place] [address] 26174- 9759 18 Mar, 2017 Other chronic pain G89.29 and Myalgia M79.1 [facility] [id number] [place] [address] 44212- 2778 Mar, [facility] [address] 51359- 7304 Mar, Dysuria R30.0 ; Other chronic pain G89.29 ; Scoliosis, unspecified scoliosis type, unspecified spinal region M41.9 and Chronic urinary tract infection N39.0 [facility] [id number] [place] [address] 21889- 4865 Feb, Arthralgia M25.50 and Myalgia M79.1 [facility] [id number] [place] [address] 04680- 8038 Feb, [facility] [id number] [place] [address] 67266- 7475 Feb, [facility] [id number] [place] [address] 70818- 5468 Feb, Closed compression fracture of L4 lumbar vertebra with routine healing, subsequent encounter S32.040D ; Closed nondisplaced fracture of phalanx of left great toe with routine healing, unspecified phalanx, subsequent encounter S92.405D and Chronic urinary tract infection N39.0 [facility] [id number] [place] [address] 96464- 1056 Jan, Closed compression fracture of fourth lumbar vertebra, initial encounter S32.040A [facility] [id number] [place] [address] 23983- 7671 Jan, Urinary tract infection, site not specified N39.0 [facility] [id number] [place] [address] 52483- 5540 Jan, [facility] [address] [address]- 8849 Jan, [facility] [id number] [place] [address] 96403- 8396 Jan, Arthralgia M25.50 and Myalgia M79.1 [facility] [address] [place] [address] 67031- 6083 Jan, Need for prophylaxis against urinary tract infection Z29.8 and Urinary tract infection, site not specified N39.0 [facility] [address] [place] [address] 78674- 3846 Dec, Urinary tract infection, site not specified N39.0 and Need for prophylaxis against urinary tract infection Z29.8 [place] [address] [place] [address] 60479- 6628 Dec, Major depressive disorder, single episode, unspecified F32.9 ; Myalgia M79.1 ; Arthralgia M25.50 and 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 [place] [address] [place] [address] 26725- 5638 Dec, Other chronic pain G89.29 and Dysuria R30.0 [place] [address] [place] [address] 23847- 8404 Nov, 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 [place] [address] [place] [address] 43944- 5592 Nov, Acute midline low back pain without sciatica M54.5 and 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 [facility] [address] [place] [address] 29076- 6918 Nov, [facility] [address] [address]- 6605 October, [facility] [id number] [place] [address] 73958- 6138 October, [facility] [address] [address]- 2262 Sep, Right leg pain M79.604 [facility] [address] [place] [address] 23321- 0866 Sep, [facility] [id number] [place] [address] 97201- 2919 Aug, Right leg pain M79.604 [facility] [id number] [place] [address] 91339- 1452 Jul, [place] [id number] [place] [address] 55433- 2587 Jul, Arthralgia M25.50 and Right leg pain M79.604 [place] [id number] [place] [address] 46475- 8024 Jun, Arthralgia M25.50 [place] [id number] [place] [address] 19216- 2066 Jun, [place] [id number] [place] [address] 19385- 0277 Jun, Right leg pain M79.604 [place] [id number] [place] [address] 07278- 3830 Jun, Right leg pain M79.604 [place] [id number] [place] [address] 27917- 0366 Jun, Abnormal mammogram of left breast R92.8 [place] [address] [place] [address] 06968- 0361 May, Routine gynecological examination V72.31 ; Breast cancer screening Z12.39 ; Cervical cancer screening Z12.4 ; Colon cancer screening Z12.11 and Calculus of gallbladder without cholecystitis without obstruction K80.20 [place] [address] [place] [address] 06664- 7821 May, Arthralgia M25.50 [facility] [id number] [place] [address] 13880- 2376 Apr, Arthralgia M25.50 [facility] [id number] [place] [address] 19115- 3786 Apr, Screening, lipid Z13.220 [facility] [address] 37901 2546 Apr, Other chronic pain G89.29 ; Scoliosis, unspecified scoliosis type, unspecified spinal region M41.9 ; Right leg pain M79.604 ; Major depressive disorder, single episode, unspecified F32.9 ; Fatigue due to exposure, subsequent encounter T73.2XXD ; Dysthymia F34.1 and Screening, lipid Z13.220 [facility] [id number] [place] [address] 11746- 6476 Apr, Arthralgia M25.50 [facility] [id number] [place] [address] 06280 2546 Mar, Dysthymia 300.4 [facility] [address] 20072- 2796 Mar, Arthralgia M25.50 [facility] [id number] [place] [address] 96760 2546 Feb, Arthralgia M25.50 [facility] [id number] [place] [address] 15778 2546 Jan, Arthralgia M25.50 [facility] [id number] [place] [address] 58845 2546 Dec, 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 [facility] [id number] [place] [address] 94230- 0686 Dec, [facility] [id number] [place] [address] 91846- 7509 Dec, Right leg pain M79.604 and Scoliosis, unspecified scoliosis type, unspecified spinal region M41.9 [facility] [id number] [place] [address] 75980- 1811 18 Dec, 2015 Right leg pain M79.604 and Scoliosis, unspecified scoliosis type, unspecified spinal region M41.9 [facility] [id number] [place] [address] 56891- 0024 Dec, Arthralgia M25.50 [facility] [id number] [place] [address] 14126- 8326 Nov, Arthralgia M25.50 [place] [address] 54469- 3603 October, Arthralgia M25.50 and Scoliosis, unspecified scoliosis type , unspecified spinal region M41.9 [place] [id number] [place] [address] 24665- 9011 Sep, [facility] [id number] [place] [address] 98784- 4387 Aug, [place] [address] 73012- 7372 Aug, Arthralgia M25.50 ; Myalgia M79.1 and Scoliosis M41.9 [place] [id number] [place] [address] 12360- 5751 Jul, Other chronic pain G89.29 [place] [id number] [place] [address] 76998- 1427 Jul, Other chronic pain G89.29 [place] [address] 15141- 1620 Jul, Impingement syndrome of both shoulders M75.41 [place] [id number] [place] [address] 77424- 9155 Jun, [place] [id number] [place] [address] 33530- 3640 Jun, [place] [id number] [place] [address] 36065- 6260 Jun, Scoliosis (and kyphoscoliosis), idiopathic M41.20 and Other chronic pain G89.29 [facility] [id number] [place] [address] 76350 -7267 Jun, Upper respiratory tract infection, unspecified type 465.9 and Rhinorrhea J34.89 [facility] [id number] [place] [address] 34911- 7988 May, [place] [address] 66560- 7274 May, [place] [address] 01681- 8508 Apr, Dysuria R30.0 ; Urinary tract infection, site not specified N39.0 and Hematuria, unspecified R31.9 [place] [id number] [place] [address] 55607- 5875 Apr, [place] [address] 21130- 5779 Mar, Family history of early CAD Z82.49 [place] [id number] [place] [address] 81392- 0446 Mar, Other chronic pain G89.29 [place] [address] 54603- 8567 Mar, Impingement syndrome of both shoulders M75.41 [place] [id number] [place] [address] 10460- 0911 Mar, Other chronic pain G89.29 ; Dysthymia F34.1 ; Family history of early CAD Z82.49 ; Dysuria R30.0 and Other specified disorders of Eustachian tube, right ear H69.81 [place] [address] 70582- 5556 Mar, [facility] [address] 8893 Feb, [facility] [id number] [place] [address] 60168- 0546 Jan, [facility] [address] [address]- 2898 Jan, Eustachian tube dysfunction 381.81 and Dysthymia 300.4 [facility] [id number] [place] [address] 91281- 4365 Dec, [facility] [id number] [place] [address] 28695- 1465 Nov, Impingement syndrome of both shoulders 726.2 [facility] [id number] [place] [address] 05850- 5707 Nov, [facility] [id number] [place] [address] 46879- 9488 Nov, [facility] [address] [place] [address] 97887- 9597 Nov, Urgency of urination 788.63 [facility] [address] [address]- 9760 October, [facility] [address] [address]- 2035 October, [facility] [address] [address]- 4035 Sep, [facility] [address] 2918 Sep, [facility] [address] [address]- 5018 Aug, [facility] [address] 1386 Aug, [facility] [id number] [place] [address]- 5569 Aug, [facility] [place] [facility] [address] [id number] [place] [address]- 7299 Aug, [facility] [place] [facility] [address] [id number] [place] [address]- 4215 Aug, [facility] [place] [facility] [address] [id number] [place] [address]- 7831 Aug, [facility] [place] [facility] [address] [id number] [place] [address]- 0648 Aug, [facility] [place] [facility] [address] [id number] [place] [address]- 4377 Jul, [facility] [place] [facility] [address] [facility] [id number] [place] [address]- 5026 Jul, [facility] [place] [facility] [address] [id number] [place] [address]- 0351 Jul, [facility] [place] [facility] [address] [id number] [place] [address]- 6433 Jul, [facility] [place] [facility] [address] [facility] [id number] [place] [address]- 8444 Jul, [facility] [place] [facility] [address] [facility] [id number] [place] [address]- 4229 Jul, [facility] [place] [facility] [address] [id number] [place] [address]- 8149 Jun, [facility] [place] [facility] [address] [id number] [place] 3636 Jun, [facility] [place] [facility] [address] [id number] [place] [address]- 7088 May, [facility] [place] [facility] [address] [id number] [place] [address]- 4631 May, [facility] [place] [facility] [address] [id number] [place] [address]- 2836 May, [facility] [place] [facility] [address] [id number] [place] 9063 May, [facility] [place] [facility] [address] [id number] [place] [address]- 7197 Mar, [facility] [place] [facility] [address] [id number] [place] [address]- 1700 Mar, [facility] [place] [facility] [address] [id number] [place] [address]- 8760 Feb, [facility] [place] [facility] [address] [id number] [place] [address]- 8542 Feb, [facility] [place] [facility] [address] [id number] [place] [address]- 4570 Jan, [facility] [place] [facility] [address] [id number] [place] [address]- 4298 Jan, [facility] [place] [facility] [address] [id number] [place] [address]- 5302 Jan, [facility] [place] [facility] [address] [id number] [place] [address]- 8811 Jan, [facility] [place] [facility] [address] [id number] [place] [address]- 4370 Jan, [facility] [place] [facility] [address] [id number] [place] [address]- 5071 Nov, [facility] [place] [facility] [address] [id number] [place] [address]- 9965 Nov, [facility] [place] [facility] [address] [id number] [place] [address]- 0193 October, [facility] [place] [facility] [address] [id number] [place] [address]- 5145 October, [facility] [place] [facility] [address] [id number] [place] [address]- 5823 October, [facility] [place] [facility] [address] [id number] [place] [address] 2546 October, [facility] [address] [id number] [place] [address]- 8230 Sep, [facility] [place] [facility] [address] [id number] [place] [address]- 5136 Aug, [facility] [place] [facility] [address] [id number] [place] [address]- 3972 Aug, [facility] [place] [facility] [address] [id number] [place] [address]- 8006 Aug, [facility] [place] [facility] [address] [id number] [place] [address]- 8563 Aug, [facility] [place] [facility] [address] [id number] [place] [address]- 7566 Jul, [facility] [place] [facility] [address] [id number] [place] [address]- 5024 Jul, [facility] [place] [facility] [address] [id number] [place] [address] Jun, [facility] [place] [facility] [address] [id number] [place] [address] Jun, [facility] [address] [id number] [place] [address] Jun, [facility] [place] [facility] [address] [id number] [place] [address] Jun, [facility] [place] [facility] [address] [id number] [place] [address] Jun, [facility] [place] [facility] [address] [id number] [place] [address] Jun, [facility] [place] [facility] [address] [id number] [place] [address] Mar, [facility] [place] [facility] [address] [id number] [place] [address] Mar, [facility] [address] [id number] [place] [address] Feb, [facility] [place] [facility] [address] [id number] [place] [address] Feb, [facility] [place] [facility] [address] [id number] [place] [address] Feb, [facility] [place] [facility] [address] [id number] [place] [address] Jan, [facility] [place] [facility] [address] [id number] [place] [address] Jan, [facility] [place] [facility] [address] [id number] [place] [address] Dec, [facility] [place] [facility] [address] [id number] [place] [address] Nov, [facility] [place] [facility] [address] [id number] [place] [address] Sep, [facility] [place] [facility] [address] [id number] [place] [address] Aug, [facility] [place] [facility] [address] [id number] [place] [address] Aug, [facility] [place] [facility] [address] [id number] [place] [address] Aug, [facility] [place] [facility] [address] [id number] [address] Jul, [facility] [place] [facility] [address] [id number] [place] [address] Jul, [facility] [place] [facility] [address] [id number] [place] [address] Jul, [facility] [place] [facility] [address] [id number] [place] [address] Jul, [facility] [place] [facility] [address] [id number] [place] [address] Jul, [facility] [address] [id number] [place] [address] Apr, [facility] [address] [id number] [place] [address] Apr, [facility] [address] [id number] [place] [address] Jan, [facility] [place] [facility] [address] [id number] [place] [address] Jan, [facility] [address] [id number] [place] [address] Dec, [facility] [address] [id number] [place] [address] Dec, [facility] [address] [id number] [place] [address] Dec, [facility] [address] [id number] [place] [address] Dec, [facility] [address] [id number] [place] [address] Dec, [facility] [address] [id number] [place] [address] October, [facility] [address] [id number] [place] [address] Aug, [facility] [place] [facility] [address] [id number] [place] [address] Aug, [facility] [place] [facility] [address] [id number] [place] [address] Aug, [facility] [place] [facility] [address] [id number] [place] [address] Jul, [facility] [address] [id number] [place] [address] May, [facility] [address] [facility]NOTE [facility] [id number] [address] Apr, [facility] [address] [id number] [address] May, [facility] [address] [id number] [address] May, [facility] [id number] [address] May, [facility] [address] [id number] [address] Mar, [facility] [id number] [address] Mar, [facility] [address] [id number] [address] Aug, IMMUNIZATIONS No Known Immunizations SOCIAL HISTORY Never Assessed REASON FOR VISIT Knee pain-twooden,RMA, injection right knee PLAN OF CARE Activity Details Follow Up prn Reason: Future/Pending Procedure JOINT INJECTION-LARGE JOINT VITAL SIGNS Height 66.5 in 2018-05-03 Weight 176.8 lbs 2018-05-03 Temperature 97.0 degrees Fahrenheit 2018-05-03 Heart Rate 74 bpm 2018-05-03 Respiratory Rate 20 2018-05-03 Oximetry on room air:98 % 2018-05-03 BMI 28.11 kg/m2 2018-05-03 Blood pressure systolic 98 mmHg 2018-05-03 Blood pressure diastolic 76 mmHg 2018-05-03 MEDICATIONS Medication Instructions Dosage Frequency Start Date End Date Duration Status Chlorzoxazone 500 mg Orally 2 times a day 1 tablet 12h 13 Jan, 2018May 30 day(s) Active Flonase Allergy Relief 50 MCG/ACT Nasally Once a day 1 spray in each nostril 24h Dec, 30 day(s) Active Vitamin D3 23554 UNIT Orally once weekly 1 capsule May, Active Lyrica 150 MG Orally 3 times a day 1 capsule 8h 14 Apr, 2016 28 days Active Percocet 10-325 MG Orally 5 times per day 1 tablet as needed Mar, 28 days Active Celebrex 100 mg Orally Once a day 1 capsule with food 24h Apr, Jul, 30 day(s) Active Premarin 0.625 MG/GM Vaginal 3 times a week as directed Mar, Active RESULTS No Results PROCEDURES Procedure Date Ordered Result Body Site DRAIN/INJECT, JOINT/BURSA May 03, 2018 INSTRUCTIONS MEDICATIONS ADMINISTERED No Known Medications MEDICAL (GENERAL) HISTORY Type Description Date Medical History chronic pain Medical History arthritis Surgical History Nephrectomy - age 3 Surgical History Appendectomy Hospitalization History surgery Hospitalization History childbirth x 3
--- OUTSIDE RECORDS SUMMARY | 2018-06-07 13:44 | XMS REPORT ---
Author Author OSCAR REED Organization [facility] Address [address] [place] [address] Care Team Providers Care Medical Director Occupational Health Name Role Phone OSCAR REED Unavailable PROBLEMS Type Condition ICD9-CM Code [id number] Code Onset Dates Condition Status SNOMED Code Problem Primary osteoarthritis of right knee M17.11 Active 215590635650056 Problem Acute constipation K59.00 Active 397990073 Problem Other chronic pain G89.29 Active 04768324 Problem Dysthymia F34.1 Active 77172360 Problem Major depressive disorder, single episode, unspecified F32.9 Active 58998266 Problem Arthralgia M25.50 Active 39462848 ALLERGIES Substance Reaction Event Type Date Status Sulfamethoxazole-Trimethoprim Unknown Drug Allergy Apr, Active Aspirin Unknown Drug Allergy Apr, Active ENCOUNTERS Encounter Location Date Diagnosis [facility] [place] [id number] [place] [address] 53340- 1194 May, [place] [id number] [place] [address] 79737- 4011 Apr, [facility] [id number] [place] [address] 31673- 7188 Apr, Arthralgia of multiple joints M25.50 and Primary osteoarthritis of right knee M17.11 [facility] [id number] [place] [address] 53918- 5597 Apr, Acute constipation K59.00 ; Arthralgia M25.50 ; Dysuria R30.0 ; Other chronic pain G89.29 ; Pain in left knee M25.562 and Pain in right knee M25.561 [facility] [id number] [place] [address] 13998- 2738 Mar, Other chronic pain G89.29 and Myalgia M79.1 [facility] [id number] [place] [address] 48042- 1297 20 Feb, 2018 Trochanteric bursitis, right hip M70.61 ; Chondromalacia, right knee M94.261 and 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 [facility] [id number] [place] [address] 46547- 4874 18 Feb, 2018 [place] [address] 37920- 4426 14 Feb, 2018 Other chronic pain G89.29 and Myalgia M79.1 [place] [address] 43736- 5184 Jan, [place] [address] 73036- 9882 Jan, Right hip pain M25.551 and Opioid use disorder, mild, in controlled environment F11.10 [place] [address] 30631- 9000 Jan, Other chronic pain G89.29 and Myalgia M79.1 [place] [id number] [place] [address] 47830- 8732 Jan, Urinary tract infection without hematuria, site unspecified N39.0 [facility] [id number] [place] [address] 24471- 1381 Jan, Therapeutic drug monitoring Z51.81 ; Scoliosis, unspecified scoliosis type, unspecified spinal region M41.9 ; Chronic prescription opiate use Z79.891 ; Dysthymia F34.1 ; Alcohol use Z78.9 and Frequent urinary tract infections N39.0 [facility] [place] [id number] [place] [address] 83242- 8307 Dec, Other chronic pain G89.29 and Myalgia M79.1 [facility] [address] 18754- 8203 11 Augustus, 2018 Impacted cerumen, right ear H61.21 and Dysfunction of right eustachian tube H69.81 [facility] [id number] [place] [address] 67625- 5729 Nov, Myalgia M79.1 and Other chronic pain G89.29 [facility] [id number] [place] [address] 95572- 5715 October, Other chronic pain G89.29 and Myalgia M79.1 [facility] [id number] [place] [address] 59781- 0541 Sep, Other chronic pain G89.29 [facility] [address] 51771- 0716 Aug, Other chronic pain G89.29 [facility] [place] [id number] [place] [address] 86631- 1903 Aug, Scoliosis (and kyphoscoliosis), idiopathic M41.20 [facility] [id number] [place] [address] 43594- 7322 Aug, [place] [address] 03029- 3548 Aug, Dysuria R30.0 ; Scoliosis, unspecified scoliosis type, unspecified spinal region M41.9 ; Encounter for therapeutic drug level monitoring Z51.81 and Alcohol use Z78.9 [facility] [id number] [place] [address] 94057- 2000 Aug, Other chronic pain G89.29 [facility] [place] [id number] [place] [address] 91014- 5486 Jul, Chronic urinary tract infection N39.0 [facility] [id number] [place] [address] 43764- 1768 07 Jul, 2017 Other chronic pain G89.29 [facility] [id number] [place] [address] 93779- 5686 Jun, [facility] [id number] [address]- 4592 Jun, [place] [id number] [place] [address] 11037- 4768 Jun, Acute left-sided thoracic back pain M54.6 [facility] [id number] [place] [address] 66820 -9884 18 Jun, 2017 Cough R05 and Acute bilateral thoracic back pain M54.6 [facility] [id number] [place] [address] 44240 -2140 15 Jun, 2017 Back pain, unspecified back location, unspecified back pain laterality, unspecified chronicity M54.9 and Left flank pain R10.9 [place] [id number] [place] [address] 99966- 5827 Jun, Other chronic pain G89.29 [place] [id number] [place] [address] 57460- 6709 03 Jun, 2017 Myalgia M79.1 [place] [id number] [place] [address] 22803- 2080 May, Other chronic pain G89.29 [facility] [id number] [place] [address] 37728- 8113 07 May, 2017 Myalgia M79.1 and Fatigue due to exposure, subsequent encounter T73.2XXD [place] [id number] [place] [address] 24641- 7481 05 May, 2017 Fatigue due to exposure, subsequent encounter T73.2XXD [facility] [id number] [place] [address] 77837- 0378 15 Apr, 2017 Other chronic pain G89.29 and Myalgia M79.1 [place] [id number] [place] [address] 10029- 6651 08 Apr, 2017 Closed nondisplaced fracture of phalanx of left great toe with routine healing, unspecified phalanx, subsequent encounter S92.405D ; Dysuria R30.0 ; Localized edema R60.0 and Arthralgia M25.50 [facility] [id number] [place] [address] 24002- 9334 18 Mar, 2017 Other chronic pain G89.29 and Myalgia M79.1 [facility] [id number] [place] [address] 97719- 7956 Mar, [facility] [address] 26368- 4807 Mar, Dysuria R30.0 ; Other chronic pain G89.29 ; Scoliosis, unspecified scoliosis type, unspecified spinal region M41.9 and Chronic urinary tract infection N39.0 [facility] [id number] [place] [address] 27779- 7811 Feb, Arthralgia M25.50 and Myalgia M79.1 [facility] [id number] [place] [address] 68426- 9834 Feb, [facility] [id number] [place] [address] 82000- 1012 Feb, [facility] [id number] [place] [address] 01503- 5400 Feb, Closed compression fracture of L4 lumbar vertebra with routine healing, subsequent encounter S32.040D ; Closed nondisplaced fracture of phalanx of left great toe with routine healing, unspecified phalanx, subsequent encounter S92.405D and Chronic urinary tract infection N39.0 [facility] [id number] [place] [address] 97923- 8268 Jan, Closed compression fracture of fourth lumbar vertebra, initial encounter S32.040A [facility] [id number] [place] [address] 49810- 6884 Jan, Urinary tract infection, site not specified N39.0 [facility] [id number] [place] [address] 40761- 6503 Jan, [facility] [address] [address]- 4059 Jan, [facility] [id number] [place] [address] 14704- 5787 Jan, Arthralgia M25.50 and Myalgia M79.1 [facility] [id number] [place] [address] 66017- 6005 Jan, Need for prophylaxis against urinary tract infection Z29.8 and Urinary tract infection, site not specified N39.0 [facility] [id number] [place] [address] 67066- 8889 Dec, Urinary tract infection, site not specified N39.0 and Need for prophylaxis against urinary tract infection Z29.8 [place] [id number] [place] [address] 35982- 4865 Dec, Major depressive disorder, single episode, unspecified F32.9 ; Myalgia M79.1 ; Arthralgia M25.50 and 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 [place] [id number] [place] [address] 41330- 5075 Dec, Other chronic pain G89.29 and Dysuria R30.0 [place] [id number] [place] [address] 42681- 9577 Nov, 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 [place] [address] [place] [address] 54922- 4497 Nov, Acute midline low back pain without sciatica M54.5 and 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 [facility] [id number] [place] [address] 62774- 8194 Nov, [facility] [address] [address]- 9864 October, [facility] [id number] [place] [address] 83683- 0001 October, [facility] [address] [address]- 6952 Sep, Right leg pain M79.604 [facility] [id number] [place] [address] 03208- 1246 Sep, [facility] [id number] [place] [address] 10176- 0432 Aug, Right leg pain M79.604 [facility] [id number] [place] [address] 42262- 2824 Jul, [place] [id number] [place] [address] 12813- 2197 Jul, Arthralgia M25.50 and Right leg pain M79.604 [place] [id number] [place] [address] 91391- 7694 Jun, Arthralgia M25.50 [place] [id number] [place] [address] 20546- 5144 Jun, [place] [id number] [place] [address] 47787- 9238 Jun, Right leg pain M79.604 [place] [id number] [place] [address] 97271- 7531 Jun, Right leg pain M79.604 [facility] [id number] [place] [address] 99487- 2737 Jun, Abnormal mammogram of left breast R92.8 [place] [id number] [place] [address] 01929- 8691 May, Routine gynecological examination V72.31 ; Breast cancer screening Z12.39 ; Cervical cancer screening Z12.4 ; Colon cancer screening Z12.11 and Calculus of gallbladder without cholecystitis without obstruction K80.20 [place] [id number] [place] [address] 57603- 9331 May, Arthralgia M25.50 [facility] [id number] [place] [address] 01124- 9606 Apr, Arthralgia M25.50 [facility] [id number] [place] [address] 17446- 1676 Apr, Screening, lipid Z13.220 [facility] [address] 77458 2546 Apr, Other chronic pain G89.29 ; Scoliosis, unspecified scoliosis type, unspecified spinal region M41.9 ; Right leg pain M79.604 ; Major depressive disorder, single episode, unspecified F32.9 ; Fatigue due to exposure, subsequent encounter T73.2XXD ; Dysthymia F34.1 and Screening, lipid Z13.220 [facility] [id number] [place] [address] 38776- 0366 Apr, Arthralgia M25.50 [facility] [id number] [place] [address] 98772 2546 Mar, Dysthymia 300.4 [facility] [address] 53787- 6796 Mar, Arthralgia M25.50 [facility] [id number] [place] [address] 47857 2546 Feb, Arthralgia M25.50 [facility] [id number] [place] [address] 49630 2546 Jan, Arthralgia M25.50 [facility] [id number] [place] [address] 03252 2546 Dec, 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 [facility] [id number] [place] [address] 50465- 1766 Dec, [facility] [id number] [place] [address] 34534- 6504 Dec, Right leg pain M79.604 and Scoliosis, unspecified scoliosis type, unspecified spinal region M41.9 [facility] [id number] [place] [address] 44478- 8200 18 Dec, 2015 Right leg pain M79.604 and Scoliosis, unspecified scoliosis type, unspecified spinal region M41.9 [facility] [id number] [place] [address] 18338- 6044 Dec, Arthralgia M25.50 [facility] [id number] [place] [address] 72499- 6329 Nov, Arthralgia M25.50 [place] [address] 54257- 0872 October, Arthralgia M25.50 and Scoliosis, unspecified scoliosis type , unspecified spinal region M41.9 [place] [id number] [place] [address] 16992- 4961 Sep, [facility] [id number] [place] [address] 49608- 5845 Aug, [place] [address] 29593- 4950 Aug, Arthralgia M25.50 ; Myalgia M79.1 and Scoliosis M41.9 [facility] [place] [id number] [place] [address] 30979- 5464 Jul, Other chronic pain G89.29 [facility] [place] [id number] [place] [address] 15118- 0485 Jul, Other chronic pain G89.29 [place] [address] 29500- 8116 Jul, Impingement syndrome of both shoulders M75.41 [facility] [place] [id number] [place] [address] 32729- 1451 Jun, [facility] [place] [id number] [place] [address] 94718- 0894 Jun, [facility] [id number] [place] [address] 99336- 9147 Jun, Scoliosis (and kyphoscoliosis), idiopathic M41.20 and Other chronic pain G89.29 [facility] [id number] [place] [address] 89584 -2403 Jun, Upper respiratory tract infection, unspecified type 465.9 and Rhinorrhea J34.89 [facility] [id number] [place] [address] 73911- 7846 May, [place] [address] 30976- 3594 May, [place] [address] 82979- 4945 Apr, Dysuria R30.0 ; Urinary tract infection, site not specified N39.0 and Hematuria, unspecified R31.9 [place] [id number] [place] [address] 27748- 3886 Apr, [place] [address] 41549- 0694 Mar, Family history of early CAD Z82.49 [place] [id number] [place] [address] 89725- 9888 Mar, Other chronic pain G89.29 [place] [address] 67172- 1159 Mar, Impingement syndrome of both shoulders M75.41 [place] [id number] [place] [address] 49866- 4978 Mar, Other chronic pain G89.29 ; Dysthymia F34.1 ; Family history of early CAD Z82.49 ; Dysuria R30.0 and Other specified disorders of Eustachian tube, right ear H69.81 [place] [address] 74281- 1317 Mar, [facility] [address]- 6221 Feb, [facility] [id number] [place] [address] 48304- 2886 Jan, [facility] [id number] [address]- 2276 Jan, Eustachian tube dysfunction 381.81 and Dysthymia 300.4 [facility] [id number] [place] [address] 39418- 5936 Dec, [facility] [id number] [place] [address] 43490- 9198 Nov, Impingement syndrome of both shoulders 726.2 [facility] [id number] [place] [address] 93328- 6398 Nov, [facility] [id number] [place] [address] 56676- 7201 Nov, [facility] [id number] [place] [address] 16836- 5778 Nov, Urgency of urination 788.63 [facility] [address], [place] [address]- 6008 October, [facility] [address] [place] [address]- 9444 October, [facility] [address] [place] [address]- 1694 Sep, [facility] [address]- 6584 Sep, [facility] [address] [place] [address]- 5033 Aug, [facility] [address] 8426 Aug, [facility] [id number] [address]- 9392 Aug, [facility] [place] [facility] [address] [id number] [place] [address]- 6559 Aug, [facility] [place] [facility] [address] [id number] [place] [address]- 0774 Aug, [facility] [place] [facility] [address] [id number] [place] [address]- 1634 Aug, [facility] [place] [facility] [address] [id number] [place] [address]- 4871 Aug, [facility] [place] [facility] [address] [id number] [place] [address]- 7113 Jul, [facility] [place] [facility] [address] [facility] [id number] [place] [address]- 4453 Jul, [facility] [place] [facility] [address] [id number] [place] [address]- 9036 Jul, [facility] [place] [facility] [address] [id number] [place] [address]- 1245 Jul, [facility] [place] [facility] [address] [facility] [id number] [place] [address]- 7671 Jul, [facility] [place] [facility] [address] [facility] [id number] [place] [address]- 6766 Jul, [facility] [place] [facility] [address] [id number] [place] [address]- 0237 Jun, [facility] [place] [facility] [address] [id number] [place] 4924 Jun, [facility] [place] [facility] [address] [id number] [place] [address]- 1200 May, [facility] [place] [facility] [address] [id number] [place] [address]- 9338 May, [facility] [place] [facility] [address] [id number] [place] [address]- 7196 May, [facility] [place] [facility] [address] [id number] [place] 5007 May, [facility] [place] [facility] [address] [id number] [place] [address]- 0061 Mar, [facility] [place] [facility] [address] [id number] [place] [address]- 9724 Mar, [facility] [place] [facility] [address] [id number] [place] [address]- 1939 Feb, [facility] [place] [facility] [address] [id number] [place] [address]- 8445 Feb, [facility] [place] [facility] [address] [id number] [place] [address]- 9013 Jan, [facility] [place] [facility] [address] [id number] [place] [address]- 8784 Jan, [facility] [place] [facility] [address] [id number] [place] [address]- 8272 Jan, [facility] [place] [facility] [address] [id number] [place] [address]- 0073 Jan, [facility] [place] [facility] [address] [id number] [place] [address]- 2209 Jan, [facility] [place] [facility] [address] [id number] [place] [address]- 1363 Nov, [facility] [place] [facility] [address] [id number] [place] [address]- 4159 Nov, [facility] [place] [facility] [address] [id number] [place] [address]- 0908 October, [facility] [place] [facility] [address] [id number] [place] [address]- 2544 October, [facility] [place] [facility] [address] [id number] [place] [address]- 4012 October, [facility] [place] [facility] [address] [id number] [place] [address] 2546 October, [facility] [address] [id number] [place] [address]- 2442 Sep, [facility] [place] [facility] [address] [id number] [place] [address]- 3056 Aug, [facility] [place] [facility] [address] [id number] [place] [address]- 5032 Aug, [facility] [place] [facility] [address] [id number] [place] [address]- 7490 Aug, [facility] [place] [facility] [address] [id number] [place] [address]- 1569 Aug, [facility] [place] [facility] [address] [id number] [place] [address]- 2946 Jul, [facility] [place] [facility] [address] [id number] [place] [address]- 3534 Jul, [facility] [place] [facility] [address] [id number] [place] [address]- 0577 Jun, [facility] [place] [facility] [address] [id number] [place] [address]- 4432 Jun, [facility] [address] [id number] [place] [address]- 7491 Jun, [facility] [place] [facility] [address] [id number] [place] [address]- 9886 Jun, [facility] [place] [facility] [address] [id number] [place] [address]- 9669 Jun, [facility] [place] [facility] [address] [id number] [place] [address] Jun, [facility] [place] [facility] [address] [id number] [place] [address] Mar, [facility] [place] [facility] [address] [id number] [place] [address] Mar, [facility] [address] [id number] [place] [address] Feb, [facility] [place] [facility] [address] [id number] [place] [address] Feb, [facility] [place] [facility] [address] [id number] [place] [address] Feb, [facility] [place] [facility] [address] [id number] [place] [address] Jan, [facility] [place] [facility] [address] [id number] [place] [address] Jan, [facility] [place] [facility] [address] [id number] [place] [address] Dec, [facility] [place] [facility] [address] [id number] [place] [address] Nov, [facility] [place] [facility] [address] [id number] [place] [address] Sep, [facility] [place] [facility] [address] [id number] [place] [address] Aug, [facility] [place] [facility] [address] [id number] [place] [address] Aug, [facility] [place] [facility] [address] [id number] [place] [address] Aug, [facility] [place] [facility] [address] [id number], [place] [address] Jul, [facility] [place] [facility] [address] [id number] [place] [address] Jul, [facility] [place] [facility] [address] [id number] [place] [address] Jul, [facility] [place] [facility] [address] [id number] [place] [address] Jul, [facility] [place] [facility] [address] [id number] [place] [address] Jul, [facility] [address] [id number] [place] [address] Apr, [facility] [address] [id number] [place] [address] Apr, [facility] [address] [id number] [place] [address] Jan, [facility] [place] [facility] [address] [id number] [place] [address] Jan, [facility] [address] [id number] [place] [address] Dec, [facility] [address] [id number] [place] [address] Dec, [facility] [address] [id number] [place] [address] Dec, [facility] [address] [id number] [place] [address] Dec, [facility] [address] [id number] [place] [address] Dec, [facility] [address] [id number] [place] [address] October, [facility] [address] [id number] [place] [address] Aug, [facility] [place] [facility] [address] [id number] [place] [address] Aug, [facility] [place] [facility] [address] [id number] [place] [address] Aug, [facility] [place] [facility] [address] [id number] [place] [address] Jul, [facility] [address] [id number] [place] [address] May, [facility] [address] [facility] [id number] [address] Apr, [facility] [address] [id number] [address] May, [facility] [address] [id number], [place] [address] May, [facility] [id number], [place] [address] May, [facility] [address] [id number], [place] [address] Mar, [facility] [id number], [place] [address] Mar, [facility] [address] [id number], [place] [address] Aug, IMMUNIZATIONS No Known Immunizations SOCIAL HISTORY Never Assessed REASON FOR VISIT Knee pain, Bladder infection-VIPUL kumari, pt complaining of pain in her right knee and 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 PLAN OF CARE Activity Details Follow Up prn Reason: VITAL SIGNS Height 66.5 in 2018-05-02 Weight 176.8 lbs 2018-05-02 Temperature 97.0 degrees Fahrenheit 2018-05-02 Heart Rate 74 bpm 2018-05-02 Respiratory Rate 20 2018-05-02 Oximetry on room air:99 % 2018-05-02 BMI 28.11 kg/m2 2018-05-02 Blood pressure systolic 112 mmHg 2018-05-02 Blood pressure diastolic 80 mmHg 2018-05-02 MEDICATIONS Medication Instructions Dosage Frequency Start Date End Date Duration Status Chlorzoxazone 500 mg Orally 2 times a day 1 tablet 12h 13 Jan, 2018May 30 day(s) Active Lyrica 150 MG Orally 3 times a day 1 capsule 8h 14 Apr, 2016 28 days Active Meloxicam 7.5 mg Orally Once a day 1 tablet 24h 07 Apr, 2018 Jun, 30 day(s) Active Percocet 10-325 MG Orally 5 times per day 1 tablet as needed Mar, 28 days Active Premarin 0.625 MG/GM Vaginal 3 times a week as directed Mar, Active Vitamin D3 25880 UNIT Orally once weekly 1 capsule May, Active Flonase Allergy Relief 50 MCG/ACT Nasally Once a day 1 spray in each nostril 24h Dec, 30 day(s) Active RESULTS Name Result Date Reference Range UA LONG DIP (IN HOUSE) 2018-05-02 Lot # [id number] Exp date 09/2018 Clarity clear Color yellow Odor none GLU negative MAIKEL negative KET negative SG 1.010 BLO negative pH 6.0 Protein negative URO 0.2 NIT negative SLIM negative Lot # Exp date PROCEDURES Procedure Date Ordered Result Body Site URINALYSIS, AUTO, W/O SCOPE May 02, 2018 INSTRUCTIONS MEDICATIONS ADMINISTERED No Known Medications MEDICAL (GENERAL) HISTORY Type Description Date Medical History chronic pain Medical History arthritis Surgical History Nephrectomy - age 3 Surgical History Appendectomy Hospitalization History surgery Hospitalization History childbirth x 3
--- OUTSIDE RECORDS SUMMARY | 2018-06-07 13:45 | XMS REPORT ---
Author Author OSCAR REED Organization [facility] Address [address] [place] [address] Care Team Providers Care Quality Control Analyst Name Role Phone OSCAR REED Unavailable PROBLEMS Type Condition ICD9-CM Code ERV06-EP Code Onset Dates Condition Status SNOMED Code Problem Primary osteoarthritis of right knee M17.11 Active 519046375572884 Problem Acute constipation K59.00 Active 658934076 Problem Other chronic pain G89.29 Active 09481259 Problem Dysthymia F34.1 Active 17204918 Problem Major depressive disorder, single episode, unspecified F32.9 Active 80771587 Problem Arthralgia M25.50 Active 79077319 ALLERGIES No Information ENCOUNTERS Encounter Location Date Diagnosis [place] [id number] [place] [address] 40002- 3452 May, [place] [id number] [place] [address] 05631- 0280 Apr, [place] [id number] [place] [address] 28595- 7179 Apr, Arthralgia of multiple joints M25.50 and Primary osteoarthritis of right knee M17.11 [place] [id number] [place] [address] 26677- 8891 Apr, Acute constipation K59.00 ; Arthralgia M25.50 ; Dysuria R30.0 ; Other chronic pain G89.29 ; Pain in left knee M25.562 and Pain in right knee M25.561 [place] [address] 90310- 3736 Mar, Other chronic pain G89.29 and Myalgia M79.1 [place] [id number] [place] [address] 06669- 8340 Feb, 2018 Trochanteric bursitis, right hip M70.61 ; Chondromalacia, right knee M94.261 and 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 [place] [id number] [place] [address] 71235- 9832 18 Feb, 2018 [place] [id number] [place] [address] 34679- 7593 14 Feb, 2018 Other chronic pain G89.29 and Myalgia M79.1 [place] [id number] [place] [address] 41059- 6202 30 Jan, 2018 [place] [address] 50806- 2807 Jan, Right hip pain M25.551 and Opioid use disorder, mild, in controlled environment F11.10 [place] [address] 58316- 2612 Jan, Other chronic pain G89.29 and Myalgia M79.1 [place] [id number] [place] [address] 02255- 7906 16 Jan, 2018 Urinary tract infection without hematuria, site unspecified N39.0 [place] [id number] [place] [address] 93493- 6182 13 Jan, 2018 Therapeutic drug monitoring Z51.81 ; Scoliosis, unspecified scoliosis type, unspecified spinal region M41.9 ; Chronic prescription opiate use Z79.891 ; Dysthymia F34.1 ; Alcohol use Z78.9 and Frequent urinary tract infections N39.0 [place] [id number] [place] [address] 97967- 0243 Dec, Other chronic pain G89.29 and Myalgia M79.1 [place] [id number] [place] [address] 28322- 9829 11 Dec, 2017 Impacted cerumen, right ear H61.21 and Dysfunction of right eustachian tube H69.81 [place] [id number] [place] [address] 36490- 1719 Nov, Myalgia M79.1 and Other chronic pain G89.29 [facility] [id number] [place] [address] 34118- 6967 October, Other chronic pain G89.29 and Myalgia M79.1 [facility] [id number] [place] [address] 18081- 6761 Sep, Other chronic pain G89.29 [facility] [id number] [place] [address] 96906- 7569 Aug, Other chronic pain G89.29 [place] [id number] [place] [address] 77008- 1206 Aug, Scoliosis (and kyphoscoliosis), idiopathic M41.20 [place] [id number] [place] [address] 66272- 9749 Aug, [facility] [id number] [place] [address] 84771- 7317 Aug, Dysuria R30.0 ; Scoliosis, unspecified scoliosis type, unspecified spinal region M41.9 ; Encounter for therapeutic drug level monitoring Z51.81 and Alcohol use Z78.9 [place] [id number] [place] [address] 59854- 8327 Aug, Other chronic pain G89.29 [facility] [id number] [place] [address] 54948- 0258 Jul, Chronic urinary tract infection N39.0 [facility] [id number] [place] [address] 24028- 3331 Jul, Other chronic pain G89.29 [facility] [id number] [place] [address] 23852- 6812 Jun, [facility] [id number] [place] [address] 15878- 7646 Jun, [place] [id number] [place] [address] 96413- 1322 Jun, Acute left-sided thoracic back pain M54.6 [facility] [place] [id number] [place] [address] 63168 -4377 Jun, Cough R05 and Acute bilateral thoracic back pain M54.6 [facility] [place] [address] 71697 -5370 Jun, Back pain, unspecified back location, unspecified back pain laterality, unspecified chronicity M54.9 and Left flank pain R10.9 [place] [address] 14239- 7174 Jun, Other chronic pain G89.29 [place] [address] 48937- 7167 03 Jun, 2017 Myalgia M79.1 [place] [address] 02873- 4235 13 May, 2017 Other chronic pain G89.29 [place] [address] 57650- 7482 07 May, 2017 Myalgia M79.1 and Fatigue due to exposure, subsequent encounter T73.2XXD [address] 96475- 3616 05 May, 2017 Fatigue due to exposure, subsequent encounter T73.2XXD [place] [id number] [place] [address] 16273- 4464 15 Apr, 2017 Other chronic pain G89.29 and Myalgia M79.[address] 08471- 1717 08 Apr, 2017 Closed nondisplaced fracture of phalanx of left great toe with routine healing, unspecified phalanx, subsequent encounter S92.405D ; Dysuria R30.0 ; Localized edema R60.0 and Arthralgia M25.50 [facility] [address] [place] [address] 31109- 3672 18 Mar, 2017 Other chronic pain G89.29 and Myalgia M79.1 [facility] [id number] [place] [address] 72887- 3460 16 Mar, 2017 [facility] [id number] [place] [address] 34638- 2316 Mar, Dysuria R30.0 ; Other chronic pain G89.29 ; Scoliosis, unspecified scoliosis type, unspecified spinal region M41.9 and Chronic urinary tract infection N39.0 [place] [id number] [place] [address] 41911- 4808 Feb, Arthralgia M25.50 and Myalgia M79.1 [place] [id number] [place] [address] 62048- 6778 Feb, [place] [id number] [place] [address] 71466- 2685 Feb, [place] [address] [place] [address] 07333- 5357 Feb, Closed compression fracture of L4 lumbar vertebra with routine healing, subsequent encounter S32.040D ; Closed nondisplaced fracture of phalanx of left great toe with routine healing, unspecified phalanx, subsequent encounter S92.405D and Chronic urinary tract infection N39.0 [place] [id number] [place] [address] 86132- 3738 Jan, Closed compression fracture of fourth lumbar vertebra, initial encounter S32.040A [place] [id number] [place] [address] 66801- 5407 Jan, Urinary tract infection, site not specified N39.0 [facility] [id number] [place] [address] 19734- 4760 Jan, [place] [id number] [place] [address] 92399- 8345 Jan, [facility] [address] [place] [address] 39942- 1231 Jan, Arthralgia M25.50 and Myalgia M79.1 [facility] [address] [place] [address] 40014- 7437 Jan, Need for prophylaxis against urinary tract infection Z29.8 and Urinary tract infection, site not specified N39.0 [facility] [id number] [place] [address] 03731- 1515 Dec, Urinary tract infection, site not specified N39.0 and Need for prophylaxis against urinary tract infection Z29.8 [place] [id number] [place] [address] 59363- 4374 Dec, Major depressive disorder, single episode, unspecified F32.9 ; Myalgia M79.1 ; Arthralgia M25.50 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 [place] [id number] [place] [address] 30420- 8249 Dec, Other chronic pain G89.29 and Dysuria R30.0 [place] [id number] [place] [address] 78216- 3023 Nov, 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 [place] [id number] [place] [address] 75213- 8322 Nov, Acute midline low back pain without sciatica M54.5 and snf 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 Z79.891 [place] [address] [place] [address] 73690- 8881 Nov, [facility] [id number] [place] [address] 47059- 9162 October, [place] [id number] [place] [address] 14184- 9295 October, [facility] [id number] [place] [address] 78593- 5637 Sep, Right leg pain M79.604 [place] [id number] [place] [address] 82744- 4389 Sep, [place] [id number] [place] [address] 72443- 2663 Aug, Right leg pain M79.604 [place] [id number] [place] [address] 44727- 0745 Jul, [place] [id number] [place] [address] 98203- 5269 Jul, Arthralgia M25.50 and Right leg pain M79.604 [place] [id number] [place] [address] 62802- 4989 Jun, Arthralgia M25.50 [place] [id number] [place] [address] 67478- 6631 Jun, [place] [id number] [place] [address] 95533- 3335 Jun, Right leg pain M79.604 [place] [id number] [place] [address] 98356- 5012 Jun, Right leg pain M79.604 [place] [id number] [place] [address] 03298- 4808 Jun, Abnormal mammogram of left breast R92.8 [place] [id number] [place] [address] 19777- 6724 May, Routine gynecological examination V72.31 ; Breast cancer screening Z12.39 ; Cervical cancer screening Z12.4 ; Colon cancer screening Z12.11 and Calculus of gallbladder without cholecystitis without obstruction K80.20 [place] [address] [place] [address] 30827- 1262 May, Arthralgia M25.50 [place] [id number] [place] [address] 19040- 5630 Apr, Arthralgia M25.50 [facility] [id number] [place] [address] 34503- 7590 Apr, Screening, lipid Z13.220 [facility] [id number] [place] [address] 77119- 6334 Apr, Other chronic pain G89.29 ; Scoliosis, unspecified scoliosis type, unspecified spinal region M41.9 ; Right leg pain M79.604 ; Major depressive disorder, single episode, unspecified F32.9 ; Fatigue due to exposure, subsequent encounter T73.2XXD ; Dysthymia F34.1 and Screening, lipid Z13.220 [place] [id number] [place] [address] 48237- 5182 Apr, Arthralgia M25.50 [place] [address] 50712- 8197 Mar, Dysthymia 300.4 [place] [address] 20409- 7266 Mar, Arthralgia M25.50 [place] [id number] [place] [address] 22491- 6545 Feb, Arthralgia M25.50 [place] [id number] [place] [address] 39735- 7868 Jan, Arthralgia M25.50 [facility] [id number] [place] [address] 39246- 3935 Dec, 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 [place] [address] 56213- 8775 Dec, [place] [id number] [place] [address] 42558- 0816 Dec, Right leg pain M79.604 and Scoliosis, unspecified scoliosis type, unspecified spinal region M41.9 [place] [id number] [place] [address] 40991- 2445 18 Dec, 2015 Right leg pain M79.604 and Scoliosis, unspecified scoliosis type, unspecified spinal region M41.9 [facility] [id number] [address]- 4726 Dec, Arthralgia M25.50 [facility] [id number] [place] [address] 39916- 9616 Nov, Arthralgia M25.50 [place] [id number] [place] [address] 87996- 9635 October, Arthralgia M25.50 and Scoliosis, unspecified scoliosis type , unspecified spinal region M41.9 [facility] [id number] [place] [address] 54784- 3671 Sep, [place] [id number] [place] [address] 45107- 8075 Aug, [place] [id number] [place] [address] 41157- 2625 Aug, Arthralgia M25.50 ; Myalgia M79.1 and Scoliosis M41.9 [place] [id number] [place] [address] 18842- 8717 Jul, Other chronic pain G89.29 [place] [id number] [place] [address] 93441- 1969 Jul, Other chronic pain G89.29 [place] [id number] [place] [address] 44210- 9760 Jul, Impingement syndrome of both shoulders M75.41 [place] [id number] [place] [address] 70784- 1152 Jun, [facility] [id number] [place] [address] 48200- 9550 Jun, [facility] [address] [place] [address]- 7088 Jun, Scoliosis (and kyphoscoliosis), idiopathic M41.20 and Other chronic pain G89.29 [facility] [id number] [place] [address] 37102 -8217 Jun, Upper respiratory tract infection, unspecified type 465.9 and Rhinorrhea J34.89 [facility] [address] 88881- 1861 May, [place] [address] 37241- 5258 May, [place] [address] 54701- 1195 Apr, Dysuria R30.0 ; Urinary tract infection, site not specified N39.0 and Hematuria, unspecified R31.9 [place] [address] 44080- 8829 Apr, [place] [address] 58040- 8885 Mar, Family history of early CAD Z82.49 [place] [address] 99910- 9955 Mar, Other chronic pain G89.29 [place] [id number] [place] [address] 60671- 6667 Mar, Impingement syndrome of both shoulders M75.41 [place] [id number] [place] [address] 71698- 8904 Mar, Other chronic pain G89.29 ; Dysthymia F34.1 ; Family history of early CAD Z82.49 ; Dysuria R30.0 and Other specified disorders of Eustachian tube, right ear H69.81 [place] [id number] [place] [address] 84903- 8157 Mar, [place] [address] 74066- 7185 Feb, [facility] [id number] [place] [address] 19364- 2374 Jan, [facility] [id number] [place] [address] 42211- 9826 Jan, Eustachian tube dysfunction 381.81 and Dysthymia 300.4 [facility] [id number] [place] [address] 29016- 3170 Dec, [facility] [id number] [place] [address] 95925- 5749 Nov, Impingement syndrome of both shoulders 726.2 [facility] [id number] [place] [address] 03677- 2797 Nov, [facility] [id number] [place] [address] 34533- 5269 Nov, [facility] [id number] [place] [address] 46175- 0414 Nov, Urgency of urination 788.63 [facility] [id number] [place] [address] 804653- 7967 October, [facility] [id number] [place] [address] 63947- 0778 October, [facility] [id number] [place] [address] 52446- 0069 Sep, [facility] [address] [place] [address] 28536- 1662 Sep, [facility] [id number] [place] [address] 87526- 6791 Aug, [facility] [id number] [address]- 6546 Aug, [facility] [address] [place] [address] 24890- 9286 Aug, [facility] [place] [facility] [address] [id number] [place] [address]- 3947 Aug, [facility] [place] [facility] [address] [id number] [place] [address]- 9660 Aug, [facility] [place] [facility] [address] [id number] [place] [address]- 2608 Aug, [facility] [place] [facility] [address] [id number] [place] [address]- 5275 Aug, [facility] [place] [facility] [address] [id number] [place] [address]- 4434 Jul, [facility] [place] [facility] [address] [id number] [place] [address]- 0316 Jul, [facility] [place] [facility] [address] [id number] [place] [address]- 6296 Jul, [facility] [place] [facility] [address] [id number] [place] [address]- 2788 Jul, 2014 [facility] [place] [facility] [address] [id number] [place] [address]- 7507 Jul, [facility] [place] [facility] [address] [id number] [place] [address]- 3795 Jul, [facility] [place] [facility] [address] [id number] [place] [address]- 7830 Jun, [facility] [place] [facility] [address] [id number] [place] [address]- 3732 Jun, [facility] [place] [facility] [address] [id number] [place] [address]- 3445 May, [facility] [place] [facility] [address] [id number] [place] [address]- 7827 May, [facility] [place] [facility] [address] [id number] [place] [address]- 7575 May, [facility] [place] [facility] [address] [id number] [place] [address]- 1631 May, [facility] [place] [facility] [address] [id number] [place] [address]- 2068 Mar, [facility] [place] [facility] [address] [id number] [place] [address]- 0368 Mar, [facility] [place] [facility] [address] [id number] [place] [address]- 4067 Feb, [facility] [place] [facility] [address] [id number] [place] [address]- 0310 Feb, [facility] [place] [facility] [address] [id number] [place] [address]- 4436 Jan, [facility] [place] [facility] [address] [id number] [place] [address]- 1074 Jan, [facility] [place] [facility] [address] [id number] [place] [address]- 1706 Jan, [facility] [place] [facility] [address] [id number] [place] [address]- 7039 Jan, [facility] [place] [facility] [address] [id number] [place] [address]- 6283 Jan, [facility] [place] [facility] [address] [id number] [place] [address]- 1823 Nov, [facility] [place] [facility] [address] [id number] [place] [address]- 9549 Nov, [facility] [place] [facility] [address] [id number] [place] [address]- 9918 October, [facility] [place] [facility] [address] [id number] [place] [address]- 2090 October, [facility] [place] [facility] [address] [id number] [place] [address]- 4279 October, [facility] [place] [facility] [address] [id number] [place] [address]- 4658 October, [facility] [place] [facility] [address] [id number] [place] [address]- 8624 Sep, [facility] [place] [facility] [address] [id number] [place] 3631 Aug, [facility] [place] [facility] [address] [id number] [place] [address]- 7434 Aug, [facility] [place] [facility] [address] [id number] [place] [address]- 5139 Aug, [facility] [place] [facility] [address] [id number] [place] [address]- 9098 Aug, [facility] [place] [facility] [address] [id number] [place] [address]- 2655 Jul, [facility] [place] [facility] [address] [id number] [place] [address]- 3425 Jul, [facility] [place] [facility] [address] [id number] [place] [address]- 9895 Jun, [facility] [place] [facility] [address] [id number] [place] [address]- 2871 Jun, [facility] [place] [facility] [address] [id number] [place] [address]- 3447 Jun, [facility] [place] [facility] [address] [id number] [place] [address]- 6018 Jun, [facility] [place] [facility] [address] [id number] [place] [address]- 7089 Jun, [facility] [place] [facility] [address] [id number] [place] [address]- 3790 Jun, [facility] [place] [facility] [address] [id number] [place] [address]- 2442 Mar, [facility] [place] [facility] [address] [id number] [place] [address]- 1565 Mar, [facility] [place] [facility] [address] [id number] [place] [address] Feb, [facility] [address] [id number] [place] [address] Feb, [facility] [place] [facility] [address] [id number] [place] [address] Feb, [facility] [place] [facility] [address] [facility] [id number] [place] [address] Jan, [facility] [place] [facility] [address] [id number] [place] [address] Jan, [facility] [place] [facility] [address] [id number] [place] [address] Dec, [facility] [place] [facility] [address] [facility] [id number] [place] [address] Nov, [facility] [place] [facility] [address] [id number] [place] [address] Sep, [facility] [place] [facility] [address] [id number] [place] [address] Aug, [facility] [place] [facility] [address] [id number] [place] [address] Aug, [facility] [place] [facility] [address] [facility] [id number] [place] [address] Aug, [facility] [place] [facility] [address] [id number] [place] [address] Jul, [facility] [place] [facility] [address] [id number] [place] [address] Jul, [facility] [place] [facility] [address] [id number] [place] [address] Jul, [facility] [place] [facility] [address] [id number] [place] [address] Jul, [facility] [place] [facility] [address] [facility] [id number] [place] [address] Jul, [facility] [place] [facility] [address] [id number] [place] [address]- [address] Apr, [facility] [place] [facility] [address] [id number] [place] [address] Apr, [facility] [place] [facility] [address] [id number] [place] [address] Jan, [facility] [place] [facility] [address] [id number] [place] [address] Jan, [facility] [place] [facility] [address] [id number] [place] [address] Dec, [facility] [place] [facility] [address] [id number] [place] [address] Dec, [facility] [place] [facility] [address] [id number] [place] [address]- [address] Dec, [facility] [place] [facility] [address] [id number] [place] [address] Dec, [facility] [place] [facility] [address] [id number] [place] [address] Dec, [facility] [place] [facility] [address] [id number] [place] [address] October, [facility] [place] [facility] [address] [id number] [place] [address]- [address] Aug, [facility] [place] [facility] [address] [id number] [place] [address] Aug, [facility] [place] [facility] [address] [id number] [place] [address] Aug, [facility] [place] [facility] [address] [id number] [place] [address] Jul, [facility] [place] [facility] [address] [id number] [place] [address] May, [facility] [facility] [facility] [address] [id number] [place] [address] Apr, [facility] [address] [facility] [id number] [address] 305[address] May, [facility] [address] [facility] [id number] [address] 2546 May, [facility] [address] [facility] [id number] [address] 2546 May, [facility] [address] [facility] [id number] [address] 2546 Mar, [facility] [address] [facility] [id number] [address] 5[address] Mar, [facility] [address] [facility] [id number], [place] [address] 14[address] Aug, IMMUNIZATIONS No Known Immunizations SOCIAL HISTORY Never Assessed REASON FOR VISIT Carolynzess samples PLAN OF CARE VITAL SIGNS MEDICATIONS Medication Instructions Dosage Frequency Start Date End Date Duration Status Linzess 145 MCG Orally Once a day 1 capsule 24h Apr, 16 days Active RESULTS No Results PROCEDURES No Known procedures INSTRUCTIONS MEDICATIONS ADMINISTERED No Known Medications MEDICAL (GENERAL) HISTORY Type Description Date Medical History chronic pain Medical History arthritis Surgical History Nephrectomy - age 3 Surgical History Appendectomy Hospitalization History surgery Hospitalization History childbirth x 3
--- OUTSIDE RECORDS SUMMARY | 2018-06-07 13:46 | XMS REPORT ---
Author Author CHUY NGUYEN [facility] Address [address] [place] [address] Care Team Providers Care Supervisor Body Assembly Name Role Phone CHUY NGUYEN Unavailable PROBLEMS Type Condition ICD9-CM Code VBI85-OB Code Onset Dates Condition Status SNOMED Code Problem Scoliosis (and kyphoscoliosis), idiopathic M41.20 Active 26492863 Problem Myalgia M79.1 Active 48637606 Problem Other chronic pain G89.29 Active 38890022 Problem Urinary urgency R39.15 Active 90319767 Problem Dysthymia F34.1 Active 85858835 Problem Varicose veins I86.8 Active 371940018 Problem Need for prophylaxis against urinary tract infection Z29.8 Active 625769352 Problem Abnormal mammogram of left breast R92.8 Active 834572151 Problem Scoliosis, unspecified scoliosis type, unspecified spinal region M41.9 Active 317614499 Problem Arthralgia M25.50 Active 11758475 Problem Calculus of gallbladder without cholecystitis without obstruction K80.20 Active 920669085 Problem Major depressive disorder, single episode, unspecified F32.9 Active 20484875 ALLERGIES No Information ENCOUNTERS Encounter Location Date Diagnosis [place] [id number] [place] [address] 84783- 8524 30 Aug, 2017 Other chronic pain G89.29 [facility] [address] [place] [id number] [place] [address] 67221- 5493 29 Aug, 2017 Scoliosis (and kyphoscoliosis), idiopathic M41.20 [facility] [address] [place] [id number] [place] [address] 03668- 8273 Aug, [facility] [address] [place] [id number] [place] [address] 33300- 7640 12 Aug, 2017 Dysuria R30.0 ; Scoliosis, unspecified scoliosis type, unspecified spinal region M41.9 ; Encounter for therapeutic drug level monitoring Z51.81 and Alcohol use Z78.9 [facility] [address] [place] [address] [id number] [place] [address] 58647- 9002 Aug, Other chronic pain G89.29 [facility] [address] [place] [id number] [place] [address] 41290- 7397 Jul, Chronic urinary tract infection N39.0 [facility] [address] [place] [id number] [place] [address] 75533- 2236 Jul, Other chronic pain G89.29 [place] [address] [place] [id number] [place] [address] 33642- 0855 Jun, [facility] [address] [place] [id number] [place] [address] 33303- 0763 Jun, [place] [address] [place] [id number] [place] [address] 89994- 7631 Jun, Acute left-sided thoracic back pain M54.6 [facility] [address] [place] [address] [id number] [place] [address] 72129 -7996 18 Jun, 2017 Cough R05 and Acute bilateral thoracic back pain M54.6 [facility] [address] [place] [id number] [place] [address] 52278 -2779 15 Jun, 2017 Back pain, unspecified back location, unspecified back pain laterality, unspecified chronicity M54.9 and Left flank pain R10.9 [facility] [address] [place] [id number] [place] [address] 24680- 8355 Jun, Other chronic pain G89.29 [facility] [address] [place] [id number] [place] [address] 27388- 6625 Jun, Myalgia M79.1 [facility] [address] [place] [id number] [place] [address] 54302- 4330 May, Other chronic pain G89.29 [facility] [address] [place] [id number] [place] [address] 67235- 2696 May, Myalgia M79.1 and Fatigue due to exposure, subsequent encounter T73.2XXD [place] [address] [place] [id number] [place] [address] 34248- 6628 05 May, 2017 Fatigue due to exposure, subsequent encounter T73.2XXD [place] [address] [place] [id number] [place] [address] 36386- 8107 15 Apr, 2017 Other chronic pain G89.29 and Myalgia M79.1 [place] [address] 04434- 2524 08 Apr, 2017 Closed nondisplaced fracture of phalanx of left great toe with routine healing, unspecified phalanx, subsequent encounter S92.405D ; Dysuria R30.0 ; Localized edema R60.0 and Arthralgia M25.50 [place] [address] 47116- 9378 Mar, Other chronic pain G89.29 and Myalgia M79.1 [place] [address] [place] [id number] [place] [address] 37321- 1808 Mar, [place] [address] [place] [id number] [place] [address] 41697- 4334 Mar, Dysuria R30.0 ; Other chronic pain G89.29 ; Scoliosis, unspecified scoliosis type, unspecified spinal region M41.9 and Chronic urinary tract infection N39.0 [place] [address] [place] [id number] [place] [address] 12628- 6218 Feb, Arthralgia M25.50 and Myalgia M79.1 [place] [address] 57697- 7418 13 Feb, 2017 [place] [address] [place] [id number] [place] [address] 92503- 6651 Feb, [place] [address] [place] [id number] [place] [address] 10983- 0181 Feb, Closed compression fracture of L4 lumbar vertebra with routine healing, subsequent encounter S32.040D ; Closed nondisplaced fracture of phalanx of left great toe with routine healing, unspecified phalanx, subsequent encounter S92.405D and Chronic urinary tract infection N39.0 [facility] [address] [place] [address] 42557- 9854 Jan, Closed compression fracture of fourth lumbar vertebra, initial encounter S32.040A [facility] [address] [place] [id number] [place] [address] 35122- 5422 Jan, Urinary tract infection, site not specified N39.0 [place] [address] [place] [id number] [place] [address] 09955- 7949 Jan, [place] [place] [address] [place] [id number] [place] [address] 22546- 5246 Jan, [place] [address] [place] [id number] [place] [address] 30000- 9039 Jan, Arthralgia M25.50 and Myalgia M79.1 [place] [address] [place] [id number] [place] [address] 59892- 9061 Jan, Need for prophylaxis against urinary tract infection Z29.8 and Urinary tract infection, site not specified N39.0 [place] [id number] [place] [address] 64257- 4522 Dec, Urinary tract infection, site not specified N39.0 and Need for prophylaxis against urinary tract infection Z29.8 [facility] [address] [place] [address] 00175- 0278 Dec, Major depressive disorder, single episode, unspecified F32.9 ; Myalgia M79.1 ; Arthralgia M25.50 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 [facility] [address] [place] [address] 35068- 3462 Dec, Other chronic pain G89.29 and Dysuria R30.0 [place] [address] [place] [id number] [place] [address] 79421- 9829 Nov, 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 [facility] [address] [place] [id number] [place] [address] 68744- 3214 Nov, Acute midline low back pain without sciatica M54.5 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 [facility] [address] [place] [id number] [place] [address] 32907- 7317 Nov, [facility] [address] [place] [id number] [place] [address] 66677- 4823 October, [facility] [address] [place] [id number] [place] [address] 93118- 8075 October, [facility] [address] [place] [id number] [place] [address] 29863- 7083 Sep, Right leg pain M79.604 [facility] [address] [place] [id number] [place] [address] 13868- 7300 Sep, [facility] [address] [place] [id number] [place] [address] 44817- 7403 Aug, Right leg pain M79.604 [facility] [address] [place] [id number] [place] [address] 02142- 9403 Jul, [facility] [address] [place] [id number] [place] [address] 62822- 1937 Jul, Arthralgia M25.50 and Right leg pain M79.604 [facility] [address] [place] [address] 22510- 1084 Jun, Arthralgia M25.50 [facility] [address] [place] [id number] [place] [address] 04469- 7326 Jun, [facility] [address] [place] [id number] [place] [address] 31664- 5416 Jun, Right leg pain M79.604 [place] [address] [place] [id number] [place] [address] 05475- 1691 Jun, Right leg pain M79.[address] 88295- 4610 Jun, Abnormal mammogram of left breast R92.[address] 74274- 8933 May, Routine gynecological examination V72.31 ; Breast cancer screening Z12.39 ; Cervical cancer screening Z12.4 ; Colon cancer screening Z12.11 and Calculus of gallbladder without cholecystitis without obstruction K80.[address] 86184- 5558 May, Arthralgia M25.[address] 13904- 7034 Apr, Arthralgia M25.[address] 85871- 1443 Apr, Screening, lipid Z13.[address] 55858- 0288 14 Apr, 2016 Other chronic pain G89.29 ; Scoliosis, unspecified scoliosis type, unspecified spinal region M41.9 ; Right leg pain M79.604 ; Major depressive disorder, single episode, unspecified F32.9 ; Fatigue due to exposure, subsequent encounter T73.2XXD ; Dysthymia F34.1 and Screening, lipid Z13.220 [place] [id number] [place] [address] 92430- 8413 Apr, Arthralgia M25.[address] 88134- 4031 Mar, Dysthymia 300.[address] 69370- 1134 Mar, Arthralgia M25.[address] [place] [id number] [address]- 4804 Feb, Arthralgia M25.50 [facility] [address] [place] [id number] [place] [address] 69554- 8275 Jan, Arthralgia M25.50 [facility] [address] [place] [id number] [place] [address] 86534- 4308 Dec, 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 [facility] [address] [place] [id number] [place] [address] 17576- 9060 Dec, [facility] [address] [place] [id number] [place] [address] 18691- 9128 Dec, Right leg pain M79.604 and Scoliosis, unspecified scoliosis type, unspecified spinal region M41.9 [facility] [address] [place] [id number] [place] [address] 83044- 9656 Dec, Right leg pain M79.604 and Scoliosis, unspecified scoliosis type, unspecified spinal region M41.9 [facility] [address] [place] [id number] [place] [address] 55718- 5899 Dec, Arthralgia M25.50 [facility] [address] [place] [id number] [place] [address] 13984- 0877 Nov, Arthralgia M25.50 [facility] [address] [place] [id number] [place] [address] 34082- 8986 October, Arthralgia M25.50 and Scoliosis, unspecified scoliosis type , unspecified spinal region M41.9 [facility] [address] [place] [address] 34579- 2619 Sep, [facility] [address] [place] [id number] [place] [address] 26351- 4205 Aug, [facility] [address] [place] [address] 78795- 1255 Aug, Arthralgia M25.50 ; Myalgia M79.1 and Scoliosis M41.9 [facility] [address] [place] [id number] [place] [address] 22206- 5387 Jul, Other chronic pain G89.29 [facility] [address] [place] [id number] [place] [address] 13190- 0380 Jul, Other chronic pain G89.29 [facility] [address] 25753- 8226 Jul, Impingement syndrome of both shoulders M75.41 [facility] [address] [place] [id number] [place] [address] 20039- 2642 Jun, [facility] [address] [place] [id number] [place] [address] 61303- 9592 Jun, [facility] [address] [place] [id number] [place] [address] 88865- 1888 Jun, Scoliosis (and kyphoscoliosis), idiopathic M41.20 and Other chronic pain G89.29 [facility] [address] [place] [id number] [place] [address] 52606 -4026 Jun, Upper respiratory tract infection, unspecified type 465.9 and Rhinorrhea J34.89 [facility] [address] [place] [id number] [place] [address] 69145- 6957 May, [facility] [address] [place] [id number] [place] [address] 71070- 0039 May, [facility] [address] [place] [id number] [place] [address] 33214- 2108 Apr, Dysuria R30.0 ; Urinary tract infection, site not specified N39.0 and Hematuria, unspecified R31.9 [facility] [address] [place] [id number] [place] [address] 06637- 1894 Apr, [facility] [address] [place] [id number] [place] [address] 87824- 2643 Mar, Family history of early CAD Z82.49 [facility] [address] [place] [id number] [place] [address] 65463- 8286 Mar, Other chronic pain G89.29 [facility] [address] 50610- 9515 Mar, Impingement syndrome of both shoulders M75.41 [facility] [address] [place] [id number] [place] [address] 03730- 7913 Mar, Other chronic pain G89.29 ; Dysthymia F34.1 ; Family history of early CAD Z82.49 ; Dysuria R30.0 and Other specified disorders of Eustachian tube, right ear H69.81 [facility] [address] [place] [id number] [place] [address] 62139- 3665 Mar, [facility] [address] 52901- 4698 Feb, [facility] [address] 92116- 7374 Jan, [facility] [address] 71500- 7703 Jan, Eustachian tube dysfunction 381.81 and Dysthymia 300.4 [facility] [address] [place] [id number] [place] [address] 59264- 7704 Dec, [facility] [address] [place] [id number] [place] [address] 93428- 0209 Nov, Impingement syndrome of both shoulders 726.2 [facility] [address] [place] [id number] [place] [address] 94593- 8300 Nov, [facility] [address] 72382- 7548 Nov, [facility] [address] [place] [id number] [place] [address] 61902- 8963 Nov, Urgency of urination 788.63 [facility] [address] [place] [address]- 7713 October, [facility] [facility] [address] [id number] [place] [address]- 4188 October, [facility] [place] [facility] [address] [id number] [place] [address]- 7008 Sep, [facility] [place] [facility] [address] [id number] [place] [address]- 2933 Sep, [facility] [place] [facility] [address] [id number] [place] [address]- 1523 Aug, [facility] [place] [facility] [address] [id number] [place] [address]- 8967 Aug, [facility] [place] [facility] [address] [id number] [place] [address]- 5268 Aug, [facility] [place] [facility] [address] [id number] [place] [address]- 0019 Aug, [facility] [place] [facility] [address] [id number] [place] [address]- 1334 Aug, [facility] [place] [facility] [address] [id number] [place] [address]- 2439 Aug, [facility] [place] [facility] [address] [facility] [id number] [place] [address]- 9140 Aug, [facility] [place] [facility] [address] [id number] [place] [address]- 8865 Jul, [facility] [place] [facility] [address] [id number] [place] [address]- 3000 Jul, [facility] [place] [facility] [address] [id number] [place] [address]- 5314 Jul, [facility] [place] [facility] [address] [facility] [id number] [place] [address]- 5870 Jul, [facility] [place] [facility] [address] [facility] [id number] [place] [address]- 8433 Jul, [facility] [place] [facility] [address] [id number] [place] [address]- 7321 Jul, [facility] [place] [facility] [address] [id number] [place] [address]- 6190 Jun, [facility] [place] [facility] [address] [id number] [place] [address]- 3693 Jun, [facility] [place] [facility] [address] [id number] [place] [address]- 4816 May, [facility] [place] [facility] [address] [id number] [place] [address]- 0262 May, [facility] [place] [facility] [address] [id number] [place] [address]- 3615 May, [facility] [place] [facility] [address] [id number] [place] [address]- 6113 May, [facility] [place] [facility] [address] [id number] [place] [address]- 4859 Mar, [facility] [place] [facility] [address] [id number] [place] [address]- 9361 Mar, [facility] [place] [facility] [address] [id number] [place] [address]- 6710 Feb, [facility] [place] [facility] [address] [id number] [place] [address]- 8655 Feb, [facility] [place] [facility] [address] [id number] [place] [address]- 7565 Jan, [facility] [place] [facility] [address] [id number] [place] [address]- 8593 Jan, [facility] [place] [facility] [address] [id number] [place] [address]- 8419 Jan, [facility] [place] [facility] [address] [id number] [place] [address]- 2988 Jan, [facility] [place] [facility] [address] [id number] [place] [address]- 6387 Jan, [facility] [place] [facility] [address] [id number] [place] [address]- 8562 Nov, [facility] [place] [facility] [address] [id number] [place] [address]- 8681 Nov, [facility] [place] [facility] [address] [id number] [place] [address]- 2826 October, [facility] [place] [facility] [address] [id number] [place] [address]- 3460 October, [facility] [place] [facility] [address] [id number] [place] [address]- 2993 October, [facility] [place] [facility] [address] [id number] [place] [address]- 4641 October, [facility] [place] [facility] [address] [id number] [place] [address]- 1628 Sep, [facility] [place] [facility] [address] [id number] [place] [address]- 4897 Aug, [facility] [place] [facility] [address] [id number] [place] [address]- 0424 Aug, [facility] [place] [facility] [address] [id number] [place] [address]- 2143 Aug, [facility] [place] [facility] [address] [id number] [place] [address]- 0352 Aug, [facility] [place] [facility] [address] [id number] [place] [address]- 7876 Jul, [facility] [place] [facility] [address] [id number] [place] [address]- 9008 Jul, [facility] [place] [facility] [address] [id number] [place] [address]- 9730 Jun, [facility] [place] [facility] [address] [id number] [place] [address]- 6396 Jun, [facility] [place] [facility] [address] [id number] [place] [address]- 3218 Jun, [facility] [place] [facility] [address] [id number] [place] [address]- 2942 Jun, [facility] [place] [facility] [address] [id number] [place] [address]- 1042 Jun, [facility] [place] [facility] [address] [id number] [place] [address]- 2056 Jun, [facility] [place] [facility] [address] [id number] [place] [address]- 9188 Mar, [facility] [place] [facility] [address] [id number] [place] [address]- 4756 Mar, [facility] [place] [facility] [address] [id number] [place] [address]- 8827 Feb, [facility] [place] [facility] [address] [id number] [place] [address]- 5335 Feb, [facility] [place] [facility] [address] [id number] [place] [address]- 1175 Feb, [facility] [place] [facility] [address] [id number] [place] [address]- 0103 Jan, [facility] [place] [facility] [address] [id number] [place] [address]- 9970 Jan, [facility] [place] [facility] [address] [id number] [place] [address]- 1917 Dec, [facility] [place] [facility] [address] [id number] [place] [address]- 0543 Nov, [facility] [place] [facility] [address] [id number] [place] [address]- 4288 Sep, [facility] [place] [facility] [address] [id number] [place] [address]- 4456 Aug, [facility] [place] [facility] [address] [id number] [place] [address]- 5606 Aug, [facility] [address] [id number] [place] [address]- 7870 Aug, [facility] [place] [facility] [address] [id number] [place] [address]- 5066 Jul, [facility] [address] [id number] [place] [address]- 8716 Jul, [facility] [place] [facility] [address] [id number] [place] [address]- 7041 Jul, [facility] [address] [id number] [place] [address]- 2590 Jul, [facility] [address] [id number] [place] [address]- 4461 Jul, [facility] [address] [facility] [id number] [place] [address] Apr, [facility] [address] [id number] [place] [address] Apr, [facility] [address] [facility] [id number] [place] [address] Jan, [facility] [address] [facility] [id number] [place] [address] Jan, [facility] [address] [facility] [id number] [place] [address] Dec, [facility] [place] [facility] [address] [id number] [place] [address] Dec, [facility] [place] [facility] [address] [id number] [place] [address] Dec, [facility] [place] [facility] [address] [facility] [id number] [place] [address] Dec, [facility] [place] [facility] [address] [facility] [id number] [place] [address] Dec, [facility] [place] [facility] [id number] [address] October, [facility] [id number] [address] Aug, [facility] [address] [facility] [id number], [place] [address] Aug, [facility] [address] [address] Aug, [facility] [address] [facility] [id number], [place] [address] Jul, [facility] [address] [place] [address] May, [facility] [address] [address] Apr, [facility] [address] [place] [address] May, [facility] [address] [address] May, [facility] [address] [address] May, [facility] [id number] [address] Mar, [facility] [id number] [address] Mar, [facility] [id number], [place] [address] Aug, IMMUNIZATIONS No Known Immunizations SOCIAL HISTORY Never Assessed REASON FOR VISIT Returning call PLAN OF CARE VITAL SIGNS MEDICATIONS Unknown Medications RESULTS No Results PROCEDURES No Known procedures INSTRUCTIONS MEDICATIONS ADMINISTERED No Known Medications MEDICAL (GENERAL) HISTORY Type Description Date Medical History chronic pain Medical History arthritis Surgical History Nephrectomy - age 3 Surgical History Appendectomy Hospitalization History surgery Hospitalization History childbirth x 3
--- OUTSIDE RECORDS SUMMARY | 2018-06-07 13:46 | XMS REPORT ---
Author Author CHUY NGUYEN Organization [facility] Address [address] [place] [address] Care Team Providers Care Textile Screen Printer Name Role Phone CHUY NGUYEN Unavailable PROBLEMS Type Condition ICD9-CM Code AKP28-QE Code Onset Dates Condition Status SNOMED Code Problem Scoliosis (and kyphoscoliosis), idiopathic M41.20 Active 66157088 Problem Myalgia M79.1 Active 42489491 Problem Other chronic pain G89.29 Active 97863092 Problem Urinary urgency R39.15 Active 10255828 Problem Dysthymia F34.1 Active 57978590 Problem Varicose veins I86.8 Active 310887208 Problem Need for prophylaxis against urinary tract infection Z29.8 Active 740353987 Problem Abnormal mammogram of left breast R92.8 Active 707960939 Problem Scoliosis, unspecified scoliosis type, unspecified spinal region M41.9 Active 500863782 Problem Arthralgia M25.50 Active 21183499 Problem Calculus of gallbladder without cholecystitis without obstruction K80.20 Active 082178703 Problem Major depressive disorder, single episode, unspecified F32.9 Active 81544683 ALLERGIES No Information ENCOUNTERS Encounter Location Date Diagnosis [place] [id number] [place] [address] 93858- 1116 30 Aug, 2017 Other chronic pain G89.29 [facility] [address] [place] [id number] [place] [address] 95892- 1490 29 Aug, 2017 Scoliosis (and kyphoscoliosis), idiopathic M41.20 [facility] [address] [place] [address] [id number] [place] [address] 04190- 9740 Aug, [place] [address] [place] [id number] [place] [address] 90587- 8624 12 Aug, 2017 Dysuria R30.0 ; Scoliosis, unspecified scoliosis type, unspecified spinal region M41.9 ; Encounter for therapeutic drug level monitoring Z51.81 and Alcohol use Z78.9 [facility] [id number] [place] [address] 78107- 1983 Aug, Other chronic pain G89.29 [facility] [id number] [place] [address] 83409- 4319 Jul, Chronic urinary tract infection N39.0 [facility] [address] [place] [address] [id number] [place] [address] 49808- 1765 Jul, Other chronic pain G89.29 [place] [address] [place] [id number] [place] [address] 03428- 1461 Jun, [facility] [id number] [place] [address] 34036- 7968 Jun, [place] [address] [place] [id number] [place] [address] 93740- 6593 Jun, Acute left-sided thoracic back pain M54.6 [facility] [id number] [place] [address] 56425 -9586 18 Jun, 2017 Cough R05 and Acute bilateral thoracic back pain M54.6 [facility] [id number] [place] [address] 01065 -9346 15 Jun, 2017 Back pain, unspecified back location, unspecified back pain laterality, unspecified chronicity M54.9 and Left flank pain R10.9 [facility] [id number] [place] [address] 40523- 8416 Jun, Other chronic pain G89.29 [facility] [address] [id number] [place] [address] 61969- 2488 Jun, [address] [facility] [address] [place] [id number] [place] [address] 71878- 6779 May, Other chronic pain G89.29 [facility] [address] [id number] [place] [address] 68378- 9856 May, Myalgia M79.1 and Fatigue due to exposure, subsequent encounter T73.2XXD [place] [address] [place] [id number] [place] [address] 26096- 2900 05 May, 2017 Fatigue due to exposure, subsequent encounter T73.2XXD [place] [address] [place] [id number] [place] [address] 15401- 4841 15 Apr, 2017 Other chronic pain G89.29 and Myalgia M79.1 [place] [address] 25645- 7459 08 Apr, 2017 Closed nondisplaced fracture of phalanx of left great toe with routine healing, unspecified phalanx, subsequent encounter S92.405D ; Dysuria R30.0 ; Localized edema R60.0 and Arthralgia M25.50 [place] [address] 95073- 1214 Mar, Other chronic pain G89.29 and Myalgia M79.1 [place] [address] [place] [id number] [place] [address] 58818- 2192 Mar, [place] [address] [place] [id number] [place] [address] 13552- 8505 Mar, Dysuria R30.0 ; Other chronic pain G89.29 ; Scoliosis, unspecified scoliosis type, unspecified spinal region M41.9 and Chronic urinary tract infection N39.0 [place] [address] [place] [id number] [place] [address] 45750- 7532 Feb, Arthralgia M25.50 and Myalgia M79.1 [place] [address] 80382- 5443 13 Feb, 2017 [place] [address] [place] [id number] [place] [address] 46346- 3279 Feb, [place] [address] [place] [id number] [place] [address] 38037- 6602 Feb, Closed compression fracture of L4 lumbar vertebra with routine healing, subsequent encounter S32.040D ; Closed nondisplaced fracture of phalanx of left great toe with routine healing, unspecified phalanx, subsequent encounter S92.405D and Chronic urinary tract infection N39.0 [facility] [id number] [place] [address] 68152- 4308 Jan, Closed compression fracture of fourth lumbar vertebra, initial encounter S32.040A [facility] [address] [place] [id number] [place] [address] 19811- 9798 Jan, Urinary tract infection, site not specified N39.0 [place] [address] [place] [id number] [place] [address] 39848- 6986 Jan, [place] [address] [place] [id number] [place] [address] 83073- 2027 Jan, [place] [address] [place] [id number] [place] [address] 98558- 0736 Jan, Arthralgia M25.50 and Myalgia M79.1 [place] [address] [place] [id number] [place] [address] 88911- 7864 Jan, Need for prophylaxis against urinary tract infection Z29.8 and Urinary tract infection, site not specified N39.0 [place] [id number] [place] [address] 67397- 4361 Dec, Urinary tract infection, site not specified N39.0 and Need for prophylaxis against urinary tract infection Z29.8 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 [address] [place] [id number] [place] [address] 11000- 1756 Nov, [facility] [address] [id number] [place] [address] 73744- 6172 October, [facility] [address] [place] [id number] [place] [address] 91080- 6467 October, [facility] [address] [place] [id number] [place] [address] 63012- 2866 Sep, Right leg pain M79.604 [facility] [address] [place] [id number] [place] [address] 10579- 2053 Sep, [facility] [address] [place] [id number] [place] [address] 23957- 1644 Aug, Right leg pain M79.604 [facility] [address] [place] [id number] [place] [address] 89753- 0980 Jul, [facility] [address] [place] [id number] [place] [address] 78970- 8193 Jul, Arthralgia M25.50 and Right leg pain M79.604 [facility] [address] [place] [address] 64497- 6799 Jun, Arthralgia M25.50 [facility] [address] [place] [id number] [place] [address] 87346- 0556 Jun, [facility] [address] [place] [id number] [place] [address] 12914- 1356 Jun, Right leg pain M79.604 [place] [address] [place] [id number] [place] [address] 06495- 0847 Jun, Right leg pain M79.[address] 30570- 0130 Jun, Abnormal mammogram of left breast R92.[address] 45248- 6480 May, Routine gynecological examination V72.31 ; Breast cancer screening Z12.39 ; Cervical cancer screening Z12.4 ; Colon cancer screening Z12.11 and Calculus of gallbladder without cholecystitis without obstruction K80.[address] 19507- 3430 May, Arthralgia M25.[address] 06038- 3519 Apr, Arthralgia M25.[address] 22695- 5070 Apr, Screening, lipid Z13.[address] 54858- 7044 14 Apr, 2016 Other chronic pain G89.29 ; Scoliosis, unspecified scoliosis type, unspecified spinal region M41.9 ; Right leg pain M79.604 ; Major depressive disorder, single episode, unspecified F32.9 ; Fatigue due to exposure, subsequent encounter T73.2XXD ; Dysthymia F34.1 and Screening, lipid Z13.220 [place] [id number] [place] [address] 46151- 6034 Apr, Arthralgia M25.[address] 18829- 1501 Mar, Dysthymia 300.[address] 65543- 8176 Mar, Arthralgia M25.[address] [place] [id number] [address]- 4993 Feb, Arth[address]gia M25.50 [facility] [address] [place] [id number] [place] [address] 36616- 0476 Jan, Arthralgia M25.50 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 [address] [place] [id number] [place] [address] 62053- 4922 Dec, [facility] [address] [place] [id number] [place] [address] 48526- 9758 Dec, Right leg pain M79.604 and Scoliosis, unspecified scoliosis type, unspecified spinal region M41.9 [facility] [address] [place] [id number] [place] [address] 57919- 9461 Dec, Right leg pain M79.604 and Scoliosis, unspecified scoliosis type, unspecified spinal region M41.9 [facility] [address] [place] [id number] [place] [address] 96583- 0746 Dec, Arthralgia M25.50 [facility] [address] [place] [id number] [place] [address] 12370- 8197 Nov, Arthralgia M25.50 [facility] [address] [place] [id number] [place] [address] 47713- 7144 October, Arthralgia M25.50 and Scoliosis, unspecified scoliosis type , unspecified spinal region M41.9 [facility] [address] [place] [address] 80392- 6634 Sep, [facility] [address] [place] [id number] [place] [address] 66895- 9205 Aug, [facility] [id number] [place] [address] 64741- 5339 Aug, Arthralgia M25.50 ; Myalgia M79.[address] [facility] [address] [place] [id number] [place] [address] 45168- 2621 Jul, Other chronic pain G89.29 [facility] [address] [place] [id number] [place] [address] 79928- 7254 Jul, Other chronic pain G89.29 [facility] [address] 27036- 8303 Jul, Impingement syndrome of both shoulders M75.41 [facility] [address] [place] [id number] [place] [address] 15149- 7231 Jun, [facility] [address] [id number] [place] [address] 73495- 1599 Jun, [facility] [address] [place] [id number] [place] [address] 88536- 3214 Jun, Scoliosis (and kyphoscoliosis), idiopathic M41.20 and Other chronic pain G89.29 [facility] [address] [place] [id number] [place] [address] 10820 -8320 Jun, Upper respiratory tract infection, unspecified type 465.[address] [facility] [address] [id number] [place] [address] 77176- 5151 May, [facility] [address] [id number] [place] [address] 20932- 1548 May, [facility] [address] [place] [id number] [place] [address] 16489- 7341 Apr, Dysuria R30.0 ; Urinary tract infection, site not specified N39.0 and Hematuria, unspecified R31.9 [facility] [id number] [place] [address] 05403- 8662 Apr, [facility] [address] [id number] [place] [address] 49644- 4833 Mar, Family history of early CAD Z82.49 [facility] [id number] [place] [address] 87915- 1934 Mar, Other chronic pain G89.29 [facility] [address] 11770- 0632 Mar, Impingement syndrome of both shoulders M75.41 [facility] [address] [id number] [place] [address] 09964- 9523 Mar, Other chronic pain G89.29 ; Dysthymia F34.1 ; Family history of early CAD Z82.49 ; Dysuria R30.0 and Other specified disorders of Eustachian tube, right ear H69.81 [facility] [address] [id number] [place] [address] 36117- 2578 Mar, [facility] [address] 55028- 1817 Feb, [facility] [address] 20506- 4605 Jan, [facility] [address] 24675- 0455 Jan, Eustachian tube dysfunction 381.[address] [facility] [address] [place] [id number] [place] [address] 83882- 1380 Dec, [facility] [address] [place] [id number] [place] [address] 52097- 1007 Nov, Impingement syndrome of both shoulders 726.2 [facility] [id number] [place] [address] 26940- 6889 Nov, [facility] [address] 53631- 6150 Nov, [facility] [address] [id number] [place] [address] 66220- 9900 Nov, Urgency of urination 788.63 [facility] [address] [place] [address]- 1234 October, [facility] [place] [facility] [address] [id number] [place] [address]- 0384 October, [facility] [place] [facility] [address] [id number] [place] [address]- 1209 Sep, [facility] [place] [facility] [address] [id number] [place] [address]- 9650 Sep, [facility] [place] [facility] [address] [id number] [place] [address]- 2693 Aug, [facility] [place] [facility] [address] [id number] [place] [address]- 0941 Aug, [facility] [place] [facility] [address] [id number] [place] [address]- 3286 Aug, [facility] [place] [facility] [address] [id number] [place] [address]- 3334 Aug, [facility] [place] [facility] [address] [id number] [place] [address]- 7575 Aug, [facility] [place] [facility] [address] [id number] [place] [address]- 4453 Aug, [facility] [place] [facility] [address] [facility] [id number] [place] [address]- 7325 Aug, [facility] [place] [facility] [address] [id number] [place] [address]- 2428 Jul, [facility] [place] [facility] [address] [id number] [place] [address]- 8029 Jul, [facility] [place] [facility] [address] [id number] [place] [address]- 2541 Jul, [facility] [place] [facility] [address] [facility] [id number] [place] [address]- 9604 Jul, [facility] [place] [facility] [address] [facility] [id number] [place] [address]- 0945 Jul, [facility] [place] [facility] [address] [id number] [place] [address]- 8336 Jul, [facility] [place] [facility] [address] [id number] [place] [address]- 6625 Jun, [facility] [place] [facility] [address] [id number] [place] [address]- 8398 Jun, [facility] [place] [facility] [address] [id number] [place] [address]- 8890 May, [facility] [place] [facility] [address] [id number] [place] [address]- 2280 May, [facility] [place] [facility] [address] [id number] [place] [address]- 5443 May, [facility] [place] [facility] [address] [id number] [place] [address]- 5478 May, [facility] [place] [facility] [address] [id number] [place] [address]- 9501 Mar, [facility] [place] [facility] [address] [id number] [place] [address]- 1019 Mar, [facility] [place] [facility] [address] [id number] [place] [address]- 1901 Feb, [facility] [place] [facility] [address] [id number] [place] [address]- 1721 Feb, [facility] [place] [facility] [address] [id number] [place] [address]- 6997 Jan, [facility] [place] [facility] [address] [id number] [place] [address]- 6366 Jan, [facility] [place] [facility] [address] [id number] [place] [address]- 5542 Jan, [facility] [place] [facility] [address] [id number] [place] [address]- 1314 Jan, [facility] [place] [facility] [address] [id number] [place] [address]- 1644 Jan, [facility] [place] [facility] [address] [id number] [place] [address]- 9254 Nov, [facility] [place] [facility] [address] [id number] [place] [address]- 6962 Nov, [facility] [place] [facility] [address] [id number] [place] [address]- 7800 October, [facility] [place] [facility] [address] [id number] [place] [address]- 9079 October, [facility] [place] [facility] [address] [id number] [place] [address]- 5361 October, [facility] [place] [facility] [address] [id number] [place] [address]- 4320 October, [facility] [place] [facility] [address] [id number] [place] [address]- 0923 Sep, [facility] [place] [facility] [address] [id number] [place] [address]- 7499 Aug, [facility] [place] [facility] [address] [id number] [place] [address]- 3488 Aug, [facility] [place] [facility] [address] [id number] [place] [address]- 1172 Aug, [facility] [place] [facility] [address] [id number] [place] [address]- 0039 Aug, [facility] [place] [facility] [address] [id number] [place] [address]- 1924 Jul, [facility] [place] [facility] [address] [id number] [place] [address]- 4108 Jul, [facility] [place] [facility] [address] [id number] [place] [address]- 6057 Jun, [facility] [place] [facility] [address] [id number] [place] [address]- 2120 Jun, [facility] [place] [facility] [address] [id number] [place] [address]- 9172 Jun, [facility] [place] [facility] [address] [id number] [place] [address]- 0140 Jun, [facility] [place] [facility] [address] [id number] [place] [address]- 2860 Jun, [facility] [place] [facility] [address] [id number] [place] [address]- 3504 Jun, [facility] [place] [facility] [address] [id number] [place] [address]- 2625 Mar, [facility] [place] [facility] [address] [id number] [place] [address]- 8004 Mar, [facility] [place] [facility] [address] [id number] [place] [address]- 0379 Feb, [facility] [place] [facility] [address] [id number] [place] [address]- 7408 Feb, [facility] [place] [facility] [address] [id number] [place] [address]- 6204 Feb, [facility] [place] [facility] [address] [id number] [place] [address]- 8888 Jan, [facility] [place] [facility] [address] [id number] [place] [address] Jan, [facility] [place] [facility] [address] [id number] [place] [address] Dec, [facility] [place] [facility] [address] [id number] [place] [address] Nov, [facility] [place] [facility] [address] [id number] [place] [address] Sep, [facility] [place] [facility] [address] [id number] [place] [address] Aug, [facility] [place] [facility] [address] [id number] [place] [address] Aug, [facility] [address] [id number] [place] [address] Aug, [facility] [place] [facility] [address] [id number] [place] [address] Jul, [facility] [address] [id number] [place] [address] Jul, [facility] [place] [facility] [address] [id number] [place] [address] Jul, [facility] [address] [id number] [place] [address] Jul, [facility] [address] [id number] [place] [address] Jul, [facility] [address] [facility] [id number] [place] [address] Apr, [facility] [address] [id number] [place] [address] Apr, [facility] [address] [facility] [id number] [place] [address] Jan, [facility] [address] [facility] [id number] [place] [address] Jan, [facility] [address] [facility] [id number] [place] [address] Dec, [facility] [place] [facility] [address] [id number] [place] [address] Dec, [facility] [place] [facility] [address] [id number] [place] [address] Dec, [facility] [place] [facility] [address] [facility] [id number] [place] [address] Dec, [facility] [place] [facility] [address] [facility] [id number] [place] [address] Dec, [facility] [place] [facility] [id number], [place] [address] October, [facility] [id number] [address] Aug, [facility] [address] [facility] [id number], [place] [address] Aug, [facility] [id number] [address] Aug, [facility] [address] [facility] [id number] [address] Jul, [facility] [id number] [place] [address] May, [facility] [id number] [address] Apr, [facility] [address] [address] May, [facility] [address] [address] May, [facility] [address] [address] May, [facility] [id number] [address] Mar, [facility] [address] [id number] [address] Mar, [facility] [address] [id number], [place] [address] Aug, IMMUNIZATIONS No Known Immunizations SOCIAL HISTORY Never Assessed REASON FOR VISIT Controlled Med Refill/Denied PLAN OF CARE VITAL SIGNS MEDICATIONS Unknown Medications RESULTS No Results PROCEDURES No Known procedures INSTRUCTIONS MEDICATIONS ADMINISTERED No Known Medications MEDICAL (GENERAL) HISTORY Type Description Date Medical History chronic pain Medical History arthritis Surgical History Nephrectomy - age 3 Surgical History Appendectomy Hospitalization History surgery Hospitalization History childbirth x 3
--- OUTSIDE RECORDS SUMMARY | 2018-06-07 13:47 | XMS REPORT ---
Author Author CHUY NGUYEN Organization [facility] Address [address] [place] [address] Care Team Providers Care Zoning Assistant Name Role Phone CHUY NGUYEN Unavailable PROBLEMS Type Condition ICD9-CM Code VHZ45-GD Code Onset Dates Condition Status SNOMED Code Problem Scoliosis (and kyphoscoliosis), idiopathic M41.20 Active 32033950 Problem Myalgia M79.1 Active 78482026 Problem Other chronic pain G89.29 Active 02657726 Problem Urinary urgency R39.15 Active 60012807 Problem Dysthymia F34.1 Active 20123381 Problem Varicose veins I86.8 Active 741098366 Problem Need for prophylaxis against urinary tract infection Z29.8 Active 943085424 Problem Abnormal mammogram of left breast R92.8 Active 049895984 Problem Scoliosis, unspecified scoliosis type, unspecified spinal region M41.9 Active 929168583 Problem Arthralgia M25.50 Active 49145841 Problem Calculus of gallbladder without cholecystitis without obstruction K80.20 Active 873860378 Problem Major depressive disorder, single episode, unspecified F32.9 Active 45387609 ALLERGIES No Information ENCOUNTERS Encounter Location Date Diagnosis [facility] [id number] [address] Aug, [facility] [id number] [place] [address] 02507- 0217 Aug, [facility] [id number] [place] [address] 28236- 6993 Aug, Dysuria R30.0 ; Scoliosis, unspecified scoliosis type, unspecified spinal region M41.9 ; Encounter for therapeutic drug level monitoring Z51.81 and Alcohol use Z78.9 [place] [id number] [place] [address] 46037- 5685 Aug, Other chronic pain G89.29 [facility] [id number] [place] [address] 10756- 6617 Jul, Chronic urinary tract infection N39.0 [facility] [id number] [place] [address] 01362- 9801 07 Jul, 2017 Other chronic pain G89.29 [facility] [id number] [place] [address] 38229- 1949 Jun, [place] [id number] [place] [address] 21120- 2628 Jun, [place] [id number] [place] [address] 91813- 2049 Jun, Acute left-sided thoracic back pain M54.6 [facility] [id number] [place] [address] 49057 -4533 Jun, Cough R05 and Acute bilateral thoracic back pain M54.6 [facility] [id number] [place] [address] 43199 -5813 15 Jun, 2017 Back pain, unspecified back location, unspecified back pain laterality, unspecified chronicity M54.9 and Left flank pain R10.9 [place] [id number] [place] [address] 07882- 4525 Jun, Other chronic pain G89.29 [place] [id number] [place] [address] 17358- 7730 Jun, Myalgia M79.1 [place] [id number] [place] [address] 16694- 7967 May, Other chronic pain G89.29 [place] [id number] [place] [address] 84324- 4973 May, Myalgia M79.1 and Fatigue due to exposure, subsequent encounter T73.2XXD [place] [id number] [place] [address] 54072- 3680 May, Fatigue due to exposure, subsequent encounter T73.2XXD [place] [id number] [place] [address] 14607- 0763 Apr, Other chronic pain G89.29 and Myalgia M79.1 [place] [id number] [place] [address] 07530- 9157 Apr, Closed nondisplaced fracture of phalanx of left great toe with routine healing, unspecified phalanx, subsequent encounter S92.405D ; Dysuria R30.0 ; Localized edema R60.0 and Arthralgia M25.50 [place] [id number] [place] [address] 38250- 8967 Mar, Other chronic pain G89.29 and Myalgia M79.1 [place] [id number] [place] [address] 72692- 1909 Mar, [place] [id number] [place] [address] 84502- 9245 Mar, Dysuria R30.0 ; Other chronic pain G89.29 ; Scoliosis, unspecified scoliosis type, unspecified spinal region M41.9 and Chronic urinary tract infection N39.0 [place] [id number] [place] [address] 21151- 7081 Feb, Arthralgia M25.50 and Myalgia M79.1 [place] [id number] [place] [address] 24070- 2880 Feb, [place] [id number] [place] [address] 07701- 7612 Feb, [place] [id number] [place] [address] 98216- 0077 06 Feb, 2017 Closed compression fracture of L4 lumbar vertebra with routine healing, subsequent encounter S32.040D ; Closed nondisplaced fracture of phalanx of left great toe with routine healing, unspecified phalanx, subsequent encounter S92.405D and Chronic urinary tract infection N39.0 [facility] [address] [address] 2666 Jan, Closed compression fracture of fourth lumbar vertebra, initial encounter S32.040A [facility] [address] [address] 2739 Jan, Urinary tract infection, site not specified N39.0 [facility] [address] [facility] [id number] [place] [address] 24114- 0661 Jan, [facility] [id number] [place] [address] 65259- 2534 Jan, [facility] [id number] [place] [address] 12069- 5148 Jan, Arthralgia M25.50 and Myalgia M79.1 [facility] [id number] [place] [address] 46700- 3642 Jan, Need for prophylaxis against urinary tract infection Z29.8 and Urinary tract infection, site not specified N39.0 [facility] [id number] [place] [address] 91605- 3788 Dec, Urinary tract infection, site not specified N39.0 and Need for prophylaxis against urinary tract infection Z29.8 [facility] [address] [address]- 9165 Dec, Major depressive disorder, single episode, unspecified F32.9 ; Myalgia M79.1 ; Arthralgia M25.50 and 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 [facility] [id number] [address]- 2576 Dec, Other chronic pain G89.29 and Dysuria R30.0 [facility] [id number] [address]- 0973 Nov, 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 [facility] [id number] [place] [address] 03885- 9778 Nov, Acute midline low back pain without sciatica M54.5 and 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 [facility] [id number] [place] [address] 43115- 7640 Nov, [facility] [id number] [place] [address] 36248- 5892 October, [facility] [id number] [place] [address] 54774- 7381 October, [facility] [id number] [place] [address] 94545- 4389 Sep, Right leg pain M79.604 [facility] [id number] [place] [address] 65486- 0490 Sep, [facility] [id number] [place] [address] 38419- 0605 Aug, Right leg pain M79.604 [facility] [id number] [place] [address] 68669- 9621 Jul, [facility] [id number] [place] [address] 41059- 4464 Jul, Arthralgia M25.50 and Right leg pain M79.604 [facility] [id number] [place] [address] 73042- 7120 Jun, Arthralgia M25.50 [facility] [id number] [place] [address] 64820- 4396 Jun, [facility] [id number] [place] [address] 28689- 2211 Jun, Right leg pain M79.604 [facility] [id number] [place] [address] 75641- 9852 Jun, Right leg pain M79.604 [facility] [address] [place] [address] 43662- 5484 Jun, Abnormal mammogram of left breast R92.8 [place] [address] 00883- 7986 May, Routine gynecological examination V72.31 ; Breast cancer screening Z12.39 ; Cervical cancer screening Z12.4 ; Colon cancer screening Z12.11 and Calculus of gallbladder without cholecystitis without obstruction K80.20 [place] [address] 97416- 3991 May, Arthralgia M25.50 [place] [address] 35718- 3743 Apr, Arthralgia M25.50 [place] [address] 80933- 2831 Apr, Screening, lipid Z13.[address] 92217- 0043 14 Apr, 2016 Other chronic pain G89.29 ; Scoliosis, unspecified scoliosis type, unspecified spinal region M41.9 ; Right leg pain M79.604 ; Major depressive disorder, single episode, unspecified F32.9 ; Fatigue due to exposure, subsequent encounter T73.2XXD ; Dysthymia F34.1 and Screening, lipid Z13.220 [place] [address] 92391- 6570 Apr, Arthralgia M25.50 [place] [address] 21914- 7008 Mar, Dysthymia 300.4 [place] [address] 53909- 5751 Mar, Arthralgia M25.50 [place] [address] 40671- 6216 08 Feb, 2016 Arthralgia M25.50 [place] [address] 83439- 6056 Jan, Arthralgia M25.50 [facility] [id number] [place] [address] 78895- 9831 Dec, 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 [facility] [id number] [place] [address] 77240- 2353 Dec, [facility] [id number] [place] [address] 48813- 3043 Dec, Right leg pain M79.604 and Scoliosis, unspecified scoliosis type, unspecified spinal region M41.9 [place] [id number] [place] [address] 13843- 1199 Dec, Right leg pain M79.604 and Scoliosis, unspecified scoliosis type, unspecified spinal region M41.9 [place] [id number] [place] [address] 26726- 8943 Dec, Arthralgia M25.50 [place] [id number] [place] [address] 09723- 5327 Nov, Arthralgia M25.50 [place] [id number] [place] [address] 37754- 8100 October, Arthralgia M25.50 and Scoliosis, unspecified scoliosis type , unspecified spinal region M41.9 [facility] [id number] [place] [address] 10261- 1802 Sep, [facility] [id number] [place] [address] 51119- 6449 Aug, [place] [id number] [place] [address] 10568- 2153 Aug, Arthralgia M25.50 ; Myalgia M79.1 and Scoliosis M41.9 [facility] [id number] [place] [address] 24583- 1538 Jul, Other chronic pain G89.29 [facility] [id number] [place] [address] 10648- 0045 Jul, Other chronic pain G89.29 [facility] [id number] [place] [address] 53072- 9334 11 Jul, 2015 Impingement syndrome of both shoulders M75.41 [facility] [id number] [place] [address] 39671- 4981 Jun, [facility] [id number] [place] [address] 53860- 0175 Jun, [facility] [id number] [place] [address] 54567- 3239 Jun, Scoliosis (and kyphoscoliosis), idiopathic M41.20 and Other chronic pain G89.29 [facility] [id number] [place] [address] 37207 -4773 Jun, Upper respiratory tract infection, unspecified type 465.9 and Rhinorrhea J34.89 [facility] [id number] [place] [address] 75214- 9572 May, [facility] [id number] [place] [address] 73459- 3545 May, [facility] [id number] [place] [address] 86125- 3775 Apr, Dysuria R30.0 ; Urinary tract infection, site not specified N39.0 and Hematuria, unspecified R31.9 [facility] [id number] [place] [address] 98549- 0144 Apr, [facility] [address] 93727- 4530 16 Mar, 2015 Family history of early CAD Z82.49 [facility] [id number] [place] [address] 78919- 7572 15 Mar, 2015 Other chronic pain G89.29 [facility] [address] [place] [address]- 7408 Mar, Impingement syndrome of both shoulders M75.41 [facility] [address] 70029- 0636 Mar, Other chronic pain G89.29 ; Dysthymia F34.1 ; Family history of early CAD Z82.49 ; Dysuria R30.0 and Other specified disorders of Eustachian tube, right ear H69.81 [facility] [address] 20438- 0471 Mar, [facility] [address] 10457- 9807 Feb, [facility] [address] 95513- 3497 Jan, [facility] [address] 70325- 9229 Jan, Eustachian tube dysfunction 381.81 and Dysthymia 300.4 [facility] [id number] [place] [address] 95334- 1796 Dec, [facility] [address] 33419- 9550 Nov, Impingement syndrome of both shoulders 726.2 [facility] [id number] [place] [address] 15328- 1609 Nov, [facility] [address] 38276- 7736 Nov, [facility] [id number] [place] [address] 89196- 7772 Nov, Urgency of urination 788.63 [facility] [id number] [place] [address] 57630- 2111 October, [facility] [id number] [place] [address] 86818- 3182 October, [facility] [place] [facility] [address] [id number] [place] [address]- 7531 Sep, [facility] [place] [facility] [address] [id number] [place] [address]- 9566 Sep, [facility] [place] [facility] [address] [id number] [place] [address]- 0170 Aug, [facility] [place] [facility] [address] [id number] [place] [address]- 7774 Aug, [facility] [place] [facility] [address] [id number] [place] [address]- 5425 Aug, [facility] [place] [facility] [address] [id number] [place] [address]- 9793 Aug, [facility] [place] [facility] [address] [id number] [place] [address]- 9432 Aug, [facility] [place] [facility] [address] [id number] [place] [address]- 5933 Aug, [facility] [place] [facility] [address] [id number] [place] [address]- 5123 Aug, [facility] [place] [facility] [address] [id number] [place] [address]- 0097 Jul, [facility] [place] [facility] [address] [id number] [place] [address]- 7189 Jul, [facility] [place] [facility] [address] [id number] [place] [address]- 9299 Jul, [facility] [place] [facility] [address] [id number] [place] [address]- 1516 Jul, [facility] [place] [facility] [address] [id number] [place] [address]- 9500 Jul, [facility] [place] [facility] [address] [id number] [place] [address]- 3886 Jul, [facility] [place] [facility] [address] [id number] [place] [address]- 2281 Jun, [facility] [place] [facility] [address] [id number] [place] [address]- 2279 Jun, [facility] [place] [facility] [address] [id number] [place] [address]- 4660 May, [facility] [place] [facility] [address] [id number] [place] [address]- 5743 May, [facility] [place] [facility] [address] [id number] [place] [address]- 2250 May, [facility] [place] [facility] [address] [id number] [place] [address]- 9289 May, [facility] [place] [facility] [address] [id number] [place] [address]- 9340 Mar, [facility] [place] [facility] [address] [id number] [place] [address]- 8856 Mar, [facility] [place] [facility] [address] [id number] [place] [address]- 5425 Feb, [facility] [place] [facility] [address] [id number] [place] [address]- 6097 Feb, [facility] [place] [facility] [address] [id number] [place] [address]- 9340 Jan, [facility] [place] [facility] [address] [id number] [place] [address]- 7684 Jan, [facility] [place] [facility] [address] [id number] [place] [address]- 7175 Jan, [facility] [place] [facility] [address] [id number] [place] [address]- 7930 Jan, [facility] [place] [facility] [address] [id number] [place] [address]- 6830 Jan, [facility] [place] [facility] [address] [id number] [place] [address]- 7484 Nov, [facility] [place] [facility] [address] [id number] [place] [address]- 1000 Nov, [facility] [place] [facility] [address] [id number] [place] [address]- 4792 October, [facility] [place] [facility] [address] [id number] [place] [address]- 9692 October, [facility] [place] [facility] [address] [id number] [place] [address]- 6359 October, [facility] [place] [facility] [address] [id number] [place] [address]- 8109 October, [facility] [place] [facility] [address] [id number] [place] [address]- 2130 Sep, [facility] [place] [facility] [address] [id number] [place] [address]- 2092 Aug, [facility] [place] [facility] [address] [id number] [place] [address]- 4106 Aug, [facility] [place] [facility] [address] [id number] [place] [address]- 9373 Aug, [facility] [place] [facility] [address] [id number] [place] [address]- 7929 Aug, [facility] [place] [facility] [address] [id number] [place] [address]- 9439 Jul, [facility] [place] [facility] [address] [id number] [place] [address]- 3225 Jul, [facility] [place] [facility] [address] [id number] [place] [address]- 3232 Jun, [facility] [place] [facility] [address] [id number] [place] [address]- 4263 Jun, [facility] [place] [facility] [address] [id number] [place] [address]- 9781 Jun, [facility] [place] [facility] [address] [id number] [place] [address]- 8056 Jun, [facility] [address] [id number] [place] [address]- 9030 Jun, [facility] [place] [facility] [address] [id number] [place] [address]- 6234 Jun, [facility] [place] [facility] [address] [id number] [place] [address]- 7544 Mar, [facility] [place] [facility] [address] [id number] [place] [address]- 7695 Mar, [facility] [place] [facility] [address] [id number] [place] [address]- 2350 Feb, [facility] [place] [facility] [address] [id number] [place] [address]- 5248 Feb, [facility] [place] [facility] [address] [id number] [place] [address]- 1905 Feb, [facility] [place] [facility] [address] [id number] [place] [address]- 8731 Jan, [facility] [place] [facility] [address] [id number] [place] [address]- 6376 Jan, [facility] [place] [facility] [address] [id number] [place] [address]- 4626 Dec, [facility] [place] [facility] [address] [id number] [address]- 0326 Nov, [facility] [place] [facility] [address] [id number] [place] [address] 2547 Sep, [facility] [place] [facility] [address] [id number] [place] [address] 2545 Aug, [facility] [place] [facility] [address] [id number] [place] [address] 2543 Aug, [facility] [place] [facility] [address] [id number] [place] [address]- 2546 Aug, [facility] [place] [facility] [address] [id number] [place] [address]- 5439 Jul, [facility] [address] [id number] [place] [address]- 5146 Jul, [facility] [place] [facility] [address] [id number] [place] [address] Jul, [facility] [place] [facility] [address] [id number] [place] [address] Jul, [facility] [place] [facility] [address] [id number] [place] [address] Jul, [facility] [place] [facility] [address] [id number] [place] [address] Apr, [facility] [address] [id number] [place] [address] Apr, [facility] [place] [facility] [address] [id number] [place] [address] Jan, [facility] [address] [id number] [place] [address] Jan, [facility] [place] [facility] [address] [id number] [place] [address] Dec, [facility] [place] [facility] [address] [id number] [place] [address] Dec, [facility] [place] [facility] [address] [id number] [place] [address] Dec, [facility] [place] [facility] [address] [id number] [place] [address] Dec, [facility] [place] [facility] [address] [id number] [place] [address] Dec, [facility] [place] [facility] [address] [id number] [place] [address] October, [facility] [place] [facility] [address] [id number] [place] [address] Aug, [facility] [address] [facility] [id number] [address] Aug, [facility] [address] [facility] [id number] [address] Aug, [facility] [address] [id number] [address] Jul, [facility] [id number] [address] May, [facility] [id number] [address] Apr, [facility] [id number] [address] May, [facility] [id number] [address] May, [facility] [id number] [address] May, [facility] [id number] [address] Mar, [facility] [id number] [address] Mar, [facility] [address] [id number] [address] Aug, IMMUNIZATIONS No Known Immunizations SOCIAL [...]
--- OUTSIDE RECORDS SUMMARY | 2018-06-07 13:49 | XMS REPORT | Continuity of Care Document ---
Author Author [facility] Address Unknown Phone Unavailable Allergies Active Description Code Type Severity Reaction Onset Reported/Identified Relationship to Patient Clinical Status Yes aspirin Drug Allergy 09/04/2009 Yes sulfa drug Drug Allergy 09/04/2009 Yes aspirin Drug Allergy N/A N/A 01/11/2012 Yes Sulfa(Sulfonamide Antibiotics) Drug Allergy N/A N/A 01/11/2012 Yes Sulfa(Sulfonamide Antibiotics) Drug Allergy 01/11/2012 Yes aspirin [id number] Drug Allergy Unknown N/A 11/13/2013 Yes Sulfa (Sulfonamide Antibiotics) [id number] Drug Allergy Unknown N/A 2013 Medications There [...] 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) 09/04/2009 [facility], CHUY S 716.90 ARTHRITIS/ ARTHROPATHY, UNSPECIFIED 09/04/2009 [facility], CHUY S 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) 09/04/2009 [facility], CHUY S 716.90 ARTHRITIS/ ARTHROPATHY, UNSPECIFIED 09/04/2009 [facility], CHUY S 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) 09/04/2009 MTZ DO, TUAN K 716.90 ARTHRITIS/ ARTHROPATHY, UNSPECIFIED 09/04/2009 MTZ DO, TUAN K 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) 09/04/2009 [facility], CHUY S 716.90 ARTHRITIS/ ARTHROPATHY, UNSPECIFIED 09/04/2009 [facility] AIDE, CHUY S 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) 09/04/2009 [facility] AIDE, CHUY S 716.90 ARTHRITIS/ ARTHROPATHY, UNSPECIFIED 09/04/2009 [facility] AIDE, CHUY S 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) 12/02/2009 354.0 Carpal Tunnel Syndrome 12/02/2009 599.0 Urinary Tract Infection, Site Not Specified 12/02/2009 [facility], CHUY S 354.0 Carpal Tunnel Syndrome 12/02/2009 [facility], CHUY S 599.0 Urinary Tract Infection, Site Not Specified 12/02/2009 [facility] AIDE, CHUY S 354.0 Carpal Tunnel Syndrome 12/02/2009 [facility]IDE, CHUY S 599.0 Urinary Tract Infection, Site [...] Tract Infection, Site Not Specified 12/02/2009 [facility], CHUY S 354.0 Carpal Tunnel Syndrome 12/02/2009 [facility] AIDE, CHUY S 599.0 Urinary Tract Infection, Site Not Specified 12/02/2009 [facility], CHUY S 354.0 Carpal Tunnel Syndrome 12/02/2009 [facility] AIDE, CHUY S 599.0 Urinary Tract Infection, Site Not Specified 12/02/2009 MTZ DO, TUAN K 354.0 Carpal Tunnel Syndrome 12/02/2009 MTZ DO, TUAN K 599.0 Urinary Tract Infection, Site Not Specified 12/02/2009 [facility], CHUY S 354.0 Carpal Tunnel Syndrome 12/02/2009 [facility]IDE, CHUY S 599.0 Urinary Tract Infection, Site Not Specified 12/02/2009 [facility]IDE, CHUY S 354.0 Carpal Tunnel Syndrome 12/02/2009 [facility], CHUY S 599.0 Urinary Tract Infection, Site Not Specified 04/10/2010 078.19 Other Specified Viral Warts 04/10/2010 [facility], CHUY S 078.19 Other Specified Viral Warts 04/10/2010 [facility], CHUY S 078.19 Other Specified Viral Warts 04/10/2010 078.19 Other Specified Viral Warts 04/10/2010 MTZ DO, TUAN K 078.19 Other Specified Viral Warts 04/10/2010 MTZ DO, TUAN K 078.19 Other Specified Viral Warts 04/10/2010 [facility], CHUY S 078.19 Other Specified Viral Warts 04/10/2010 [facility] AIDE, CHUY S 078.19 Other Specified Viral Warts 04/10/2010 MTZ DO, TUAN K 078.19 Other Specified Viral Warts 04/10/2010 [facility] A[facility], CHUY S 078.19 Other Specified Viral Warts 04/10/2010 [facility], CHUY S 078.19 Other Specified Viral Warts 05/27/2010 719.07 Effusion Of Ankle And Foot Joint 05/27/2010 719.08 Effusion Of Joint Of Other Specified Sites 05/27/2010 [facility], CHUY S 719.07 Effusion Of Ankle And Foot Joint 05/27/2010 WENDY BOLTON CHUY S 719.08 Effusion Of Joint Of Other Specified Sites 05/27/2010 WENDY ALVARESN CHUY S 719.07 Effusion Of Ankle And Foot Joint 05/27/2010 [facility], CHUY S 719.08 Effusion Of Joint Of [...] Joint Of Other Specified Sites 05/27/2010 [facility], CHUY S 719.07 Effusion Of Ankle And Foot Joint 05/27/2010 [facility], CHUY S 719.08 Effusion Of Joint Of Other Specified Sites 06/24/2010 717.7 Chondromalacia Of Patella 06/24/2010 [facility] AIDE, CHUY S 717.7 Chondromalacia Of Patella 06/24/2010 WENDY BOLTON CHUY S 717.7 Chondromalacia Of Patella 06/24/2010 717.7 Chondromalacia Of Patella 06/24/2010 MTZ DO, TUAN K 717.7 Chondromalacia Of Patella 06/24/2010 MTZ DO, TUAN K 717.7 Chondromalacia Of Patella 06/24/2010 [facility], CHUY S 717.7 Chondromalacia Of Patella 06/24/2010 [facility] AIDE, CHUY S 717.7 Chondromalacia Of Patella 06/24/2010 MTZ DO, TUAN K 717.7 Chondromalacia Of Patella 06/24/2010 [facility] AIDE, CHUY S 717.7 Chondromalacia Of Patella 06/24/2010 [facility] AIDE, CHUY S 717.7 Chondromalacia Of Patella 09/28/2010 786.52 Painful Respiration 09/28/2010 [facility], CHUY S 786.52 Painful Respiration 09/28/2010 [facility], CHUY S 786.52 Painful Respiration 09/28/2010 786.52 Painful Respiration 09/28/2010 MTZ DO, TUAN K 786.52 Painful Respiration 09/28/2010 MTZ DO, TUAN K 786.52 Painful Respiration 09/28/2010 [facility], CHUY S 786.52 Painful Respiration 09/28/2010 [facility], CHUY S 786.52 Painful Respiration 09/28/2010 MTZ DO, TUAN K 786.52 Painful Respiration 09/28/2010 [facility], CHUY S 786.52 Painful Respiration 09/28/2010 [facility], CHUY S 786.52 Painful Respiration 10/08/2010 110.1 Onychomycosis 10/08/2010 110.4 Tinea Pedis 10/08/2010 733.99 Hypertrophic Met Head 10/08/2010 [facility], CHUY S 110.1 Onychomycosis 10/08/2010 [facility], CHUY S 110.4 Tinea Pedis 10/08/2010 [facility]IDE, CHUY S 733.99 Hypertrophic Met Head 10/08/2010 [facility] AIDE, CHUY S 110.1 Onychomycosis 10/08/2010 [facility] AIDE, CHUY S 110.4 Tinea Pedis 10/08/2010 [facility] AIDE, CHUY S 733.99 Hypertrophic Met Head 10/08/2010 [...] K 733.99 Hypertrophic Met Head 10/08/2010 [facility] AIDE, CHUY S 110.1 Onychomycosis 10/08/2010 [facility] AIDE, CHUY S 110.4 Tinea Pedis 10/08/2010 [facility] AIDE, CHUY S 733.99 Hypertrophic Met Head 10/08/2010 [facility] AIDE, CHUY S 110.1 Onychomycosis 10/08/2010 [facility] AIDE, CHUY S 110.4 Tinea Pedis 10/08/2010 [facility] AIDE, CHUY S 733.99 Hypertrophic Met Head 10/08/2010 MTZ DO, TUAN K 110.1 Onychomycosis 10/08/2010 MTZ DO, TUAN K 110.4 Tinea Pedis 10/08/2010 MTZ DO, TUAN K 733.99 Hypertrophic Met Head 10/08/2010 [facility], CHUY S 110.1 Onychomycosis 10/08/2010 [facility] AIDE, CHUY S 110.4 Tinea Pedis 10/08/2010 [facility] AIDE, CHUY S 733.99 Hypertrophic Met Head 10/08/2010 [facility] AIDE, CHUY S 110.1 Onychomycosis 10/08/2010 [facility] AIDE, CHUY S 110.4 Tinea Pedis 10/08/2010 [facility]IDE, CHUY S 733.99 Hypertrophic Met Head 12/22/2010 564.00 Unspecified Constipation 12/22/2010 626.0 Absence Of Menstruation 12/22/2010 780.79 Other Malaise And Fatigue 12/22/2010 789.00 Abdominal Pain Unspecified Site 12/22/2010 [facility], CHUY S 564.00 Unspecified Constipation 12/22/2010 [facility], CHUY S 626.0 Absence Of Menstruation 12/22/2010 [facility], CHUY S 780.79 Other Malaise And Fatigue 12/22/2010 [facility]IDE, CHUY S 789.00 Abdominal Pain Unspecified Site 12/22/2010 [facility] AIDE, CHUY S 564.00 Unspecified Constipation 12/22/2010 [facility] AIDE, CHUY S 626.0 Absence Of Menstruation 12/22/2010 [facility]IDE, CHUY S 780.79 Other Malaise And Fatigue 12/22/2010 [facility] AIDE, CHUY S 789.00 Abdominal Pain Unspecified Site [...] 789.00 Abdominal Pain Unspecified Site 12/22/2010 [facility]IDE, CHUY S 564.00 Unspecified Constipation 12/22/2010 [facility]IDE, CHUY S 626.0 Absence Of Menstruation 12/22/2010 [facility]IDE, CHUY S 780.79 Other Malaise And Fatigue 12/22/2010 [facility] AIDE, CHUY S 789.00 Abdominal Pain Unspecified Site 12/22/2010 [facility] AIDE, CHUY S 564.00 Unspecified Constipation 12/22/2010 [facility] AIDE, CHUY S 626.0 Absence Of Menstruation 12/22/2010 [facility] AIDE, CHUY S 780.79 Other Malaise And Fatigue 12/22/2010 [facility] AIDE, CHUY S 789.00 Abdominal Pain Unspecified Site 12/22/2010 MTZ DO, TUAN K 564.00 Unspecified Constipation 12/22/2010 TMZ DO, TUAN K 626.0 Absence Of Menstruation 12/22/2010 MTZ DO, TUAN K 780.79 Other Malaise And Fatigue 12/22/2010 MTZ DO, TUAN K 789.00 Abdominal Pain Unspecified Site 12/22/2010 [facility], CHUY S 564.00 Unspecified Constipation 12/22/2010 [facility] AIDE, CHUY S 626.0 Absence Of Menstruation 12/22/2010 [facility] AIDE, CHUY S 780.79 Other Malaise And Fatigue 12/22/2010 [facility] AIDE, CHUY S 789.00 Abdominal Pain Unspecified Site 12/22/2010 [facility] AIDE, CHUY S 564.00 Unspecified Constipation 12/22/2010 [facility] AIDE, CHUY S 626.0 Absence Of Menstruation 12/22/2010 [facility], CHUY S 780.79 Other Malaise And Fatigue 12/22/2010 [facility], CHUY S 789.00 Abdominal Pain Unspecified Site 12/29/2010 276.51 Dehydration 12/29/2010 [facility], CHUY S 276.51 Dehydration 12/29/2010 [facility], CHUY S 276.51 Dehydration 12/29/2010 276.51 Dehydration 12/29/2010 MTZ DO, TUAN K 276.51 Dehydration 12/29/2010 MTZ DO, TUAN K 276.51 Dehydration 12/29/2010 [facility], CHUY S 276.51 Dehydration 12/29/2010 [facility] AIDE, CHUY S 276.51 Dehydration 12/29/2010 MTZ DO, TUAN K 276.51 Dehydration 12/29/2010 [facility], CHUY S 276.51 Dehydration 12/29/2010 [facility], CHUY S 276.51 Dehydration 01/13/2011 099.40 Urethritis Nongonococcal 01/13/2011 780.8 Hot Flashes 01/13/2011 [facility], CHUY S 099.40 Urethritis Nongonococcal 01/13/2011 [facility] AIDE, CHUY S 780.8 Hot Flashes 01/13/2011 [facility] AIDE, CHUY S 099.40 Urethritis Nongonococcal 01/13/2011 [facility] AIDE, CHUY S 780.8 Hot Flashes 01/13/2011 099.40 Urethritis Nongonococcal 01/13/2011 780.8 Hot Flashes 01/13/2011 MTZ DO, TUAN K 099.40 Urethritis Nongonococcal 01/13/2011 MTZ DO, TUAN K 780.8 Hot Flashes 01/13/2011 MTZ DO, TUAN K 099.40 Urethritis Nongonococcal 01/13/2011 MTZ DO, TUAN K 780.8 Hot Flashes 01/13/2011 [facility], CHUY S 099.40 Urethritis Nongonococcal 01/13/2011 [facility] AIDE, CHUY S 780.8 Hot Flashes 01/13/2011 [facility] AIDE, CHUY S 099.40 Urethritis Nongonococcal 01/13/2011 [facility] AIDE, CHUY S 780.8 Hot Flashes 01/13/2011 MTZ DO, TUAN K 099.40 Urethritis Nongonococcal 01/13/2011 MTZ DO, TUAN K 780.8 Hot Flashes 01/13/2011 [facility], CHUY S 099.40 Urethritis Nongonococcal 01/13/2011 [facility] AIDE, CHUY S 780.8 Hot Flashes 01/13/2011 [facility], CHUY S 099.40 Urethritis Nongonococcal 01/13/2011 DYLON NGUYEN APRNNDA S 780.8 Hot Flashes 03/01/2011 110.5 Dermatophytosis Of The Body 03/01/2011 719.40 ARTHRAIGIA UNSPEC 03/01/2011 DYLON NGUYEN APRNNDA S 110.5 Dermatophytosis Of The Body 03/01/2011 [facility], CHUY S 719.40 ARTHRAIGIA UNSPEC 03/01/2011 DYLON [...] NGUYEN APRNNDA S 719.40 ARTHRAIGIA UNSPEC 03/01/2011 MTZ DO, TUAN K 110.5 Dermatophytosis Of The Body 03/01/2011 MTZ DO, TUAN K 719.40 ARTHRAIGIA UNSPEC 03/01/2011 [facility], CHUY S 110.5 Dermatophytosis Of The Body 03/01/2011 WENDY BOLTON CHUY S 719.40 ARTHRAIGIA UNSPEC 03/01/2011 [facility] AIDE, CHUY S 110.5 Dermatophytosis Of The Body 03/01/2011 DYLON NGUYEN APRNNDA S 719.40 ARTHRAIGIA UNSPEC 03/22/2011 618.04 Rectocele 03/22/2011 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, 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 03/22/2011 [facility], CHUY S 618.04 Rectocele 03/22/2011 [facility]IDE, CHUY S 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, 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 03/22/2011 [facility] AIDE, CHUY S 618.04 Rectocele 03/22/2011 [facility] AIDE, CHUY S 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, Routine 03/22/2011 MTZ DO, TUAN K 618.04 Rectocele 03/22/2011 MTZ DO, TUAN K 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, Routine 03/22/2011 [facility], CHUY S 618.04 Rectocele 03/22/2011 [facility] AIDE, CHUY S 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, 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 03/22/2011 [facility] AIDE, CHUY S 618.04 Rectocele 03/22/2011 [facility]IDE, CHUY S 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, Routine 05/23/2011 380.4 IMPACTED CERUMEN 05/23/2011 [facility], CHUY S 380.4 IMPACTED CERUMEN 05/23/2011 [facility]IDE, CHUY S 380.4 IMPACTED CERUMEN 05/23/2011 380.4 IMPACTED CERUMEN 05/23/2011 MTZ DO TUAN K 380.4 IMPACTED CERUMEN 05/23/2011 MTZ DO, TUAN K 380.4 IMPACTED CERUMEN 05/23/2011 [facility], CHUY S 380.4 IMPACTED CERUMEN 05/23/2011 [facility] AIDE, CHUY S 380.4 IMPACTED CERUMEN 05/23/2011 MTZ DO, TUAN K 380.4 IMPACTED CERUMEN 05/23/2011 [facility]IDE, CHUY S 380.4 IMPACTED CERUMEN 05/23/2011 [facility]IDE, CHUY S 380.4 IMPACTED CERUMEN 11/24/2011 599.0 URINARY TRACT INFECTION 11/24/2011 728.85 MUSCLE SPASM 11/24/2011 729.2 NEURALGIA NEURITIS AND RADICULITIS UNSPECIFIED 11/24/2011 [facility], CHUY S 599.0 URINARY TRACT INFECTION 11/24/2011 [facility]IDE, CHUY S 728.85 MUSCLE SPASM 11/24/2011 [facility] AIDE, CHUY S 729.2 NEURALGIA NEURITIS AND RADICULITIS UNSPECIFIED 11/24/2011 [facility] AIDE, CHUY S 599.0 URINARY TRACT INFECTION 11/24/2011 [facility] AIDE, CHUY S 728.85 MUSCLE SPASM 11/24/2011 [facility] AIDE, CHUY S 729.2 NEURALGIA NEURITIS AND RADICULITIS [...] NEURALGIA NEURITIS AND RADICULITIS UNSPECIFIED 11/24/2011 [facility] AIDE, CHUY S 599.0 URINARY TRACT INFECTION 11/24/2011 [facility]IDE, CHUY S 728.85 MUSCLE SPASM 11/24/2011 [facility] AIDE, CHUY S 729.2 NEURALGIA NEURITIS AND RADICULITIS UNSPECIFIED 11/24/2011 [facility], CHUY S 599.0 URINARY TRACT INFECTION 11/24/2011 [facility]IDE, CHUY S 728.85 MUSCLE SPASM 11/24/2011 [facility]IDE, CHUY S 729.2 NEURALGIA NEURITIS AND RADICULITIS UNSPECIFIED 11/24/2011 MTZ DO, TUAN K 599.0 URINARY TRACT INFECTION 11/24/2011 MTZ DO, TUAN K 728.85 MUSCLE SPASM 11/24/2011 MTZ DO, TUAN K 729.2 NEURALGIA NEURITIS AND RADICULITIS UNSPECIFIED 11/24/2011 [facility], CHUY S 599.0 URINARY TRACT INFECTION 11/24/2011 [...] 737.30 SCOLIOSIS (AND KYPHOSCOLIOSIS) IDIOPATHIC 08/16/2012 [facility], CHUY S 788.64 URINARY HESITANCY 08/16/2012 [facility], CHUY S V19.8 FAMILY HISTORY OF OTHER [...] K 300.4 DYSTHYMIC DISORDER 08/16/2012 MTZ DO UTAN K 737.30 SCOLIOSIS (AND KYPHOSCOLIOSIS) IDIOPATHIC 08/16/2012 MTZ DO TUAN K 788.64 URINARY HESITANCY 08/16/2012 BIBI HUITRON TUAN K V19.8 FAMILY HISTORY OF OTHER CONDITION 08/16/2012 WEND[facility] BOLTON CHUY S 300.4 DYSTHYMIC DISORDER 08/16/2012 WEND[facility] BOLTON CHUY S 737.30 SCOLIOSIS (AND KYPHOSCOLIOSIS) IDIOPATHIC 08/16/2012 WENDY BOLTON CHUY S 788.64 URINARY HESITANCY 08/16/2012 [facility] A[facility], CHUY S V19.8 FAMILY HISTORY OF OTHER CONDITION 08/16/2012 WENDY BOLTON CHUY S 300.4 DYSTHYMIC DISORDER 08/16/2012 WENDY BOLTON CHUY S 737.30 SCOLIOSIS (AND KYPHOSCOLIOSIS) IDIOPATHIC 08/16/2012 [facility] A[facility] CHUY S 788.64 URINARY HESITANCY 08/16/2012 WENDY BOLTON CHUY S V19.8 FAMILY HISTORY OF OTHER CONDITION 08/16/2012 BIBI HUITRON TUAN K 300.4 DYSTHYMIC DISORDER 08/16/2012 BIBI HUITRON TUAN K 737.30 SCOLIOSIS (AND KYPHOSCOLIOSIS) IDIOPATHIC 08/16/2012 BIBI HUITRON TUAN K 788.64 URINARY HESITANCY 08/16/2012 BIBI HUITRON TUAN K V19.8 FAMILY HISTORY OF OTHER CONDITION 08/16/2012 [facility] CHUY S 300.4 DYSTHYMIC DISORDER 08/16/2012 [facility] CHUY S 737.30 SCOLIOSIS (AND KYPHOSCOLIOSIS) IDIOPATHIC 08/16/2012 [facility] A[facility] CHUY S 788.64 URINARY HESITANCY 08/16/2012 [facility] A[facility] CHUY S V19.8 FAMILY HISTORY OF OTHER CONDITION 08/16/2012 [facility] A[facility] CHUY S 300.4 DYSTHYMIC DISORDER 08/16/2012 [facility] A[facility] CHUY S 737.30 SCOLIOSIS (AND KYPHOSCOLIOSIS) IDIOPATHIC 08/16/2012 [facility] A[facility] CHUY S 788.64 URINARY HESITANCY 08/16/2012 [facility] CHUY S V19.8 FAMILY HISTORY OF OTHER CONDITION 02/07/2013 719.41 PAIN- SHOULDER 02/07/2013 V58.69 HIGH RISK MEDICATION (LONG-TERM) 02/07/2013 KAREEM MTZ DOA K 719.41 PAIN- SHOULDER 02/07/2013 KAREEM MTZ DOA K V58.69 HIGH RISK MEDICATION (LONG-TERM) 02/07/2013 KAREEM MTZ DOA K 719.41 PAIN- SHOULDER 02/07/2013 KAREEM MTZ DOA K V58.69 HIGH RISK MEDICATION (LONG-TERM) 02/07/2013 [facility] CHUY S 719.41 PAIN- SHOULDER 02/07/2013 [facility] AIDE CHUY S V58.69 HIGH RISK MEDICATION (LONG-TERM) 02/07/2013 [facility] AIDE CHUY S 719.41 PAIN- SHOULDER 02/07/2013 [facility] A[facility] CHUY S V58.69 HIGH RISK MEDICATION (LONG-TERM) 02/07/2013 KAREEM MTZ DOA K 719.41 PAIN- SHOULDER 02/07/2013 BIBI HUITRON TUAN K V58.69 HIGH RISK MEDICATION (LONG-TERM) 02/07/2013 [facility] A[facility], CHUY S 719.41 PAIN- SHOULDER 02/07/2013 [facility] AIDE, CHUY S V58.69 HIGH RISK MEDICATION (LONG-TERM) 02/07/2013 [facility] AIDE, CHUY S 719.41 PAIN- SHOULDER 02/07/2013 [facility] AIDE, CHUY S V58.69 HIGH RISK MEDICATION (LONG-TERM) [...] UNSPECIFIED SITE OF WRIST 07/18/2013 WENDY ALVARESN, CHUY S 726.5 ENTHESOPATHY OF HIP REGION 07/18/2013 WENDY ALVARESN, CHUY S 842.00 SPRAIN OF UNSPECIFIED SITE OF WRIST 07/18/2013 WENDY ALVARESN CHUY S 726.5 ENTHESOPATHY OF HIP REGION 07/18/2013 [facility] AIDE, CHUY S 842.00 SPRAIN OF UNSPECIFIED SITE OF WRIST 07/18/2013 KAREEM MTZ DOA K 726.5 ENTHESOPATHY OF HIP REGION 07/18/2013 KAREEM MTZ DOA K 842.00 SPRAIN OF UNSPECIFIED SITE OF WRIST 07/18/2013 [facility] AIDE, CHUY S 726.5 ENTHESOPATHY OF HIP REGION 07/18/2013 [facility] AIDE, CHUY S 842.00 SPRAIN OF UNSPECIFIED SITE OF WRIST 07/18/2013 [facility] AIDE, CHUY S 726.5 ENTHESOPATHY OF HIP REGION 07/18/2013 [facility] AIDE CHUY S 842.00 SPRAIN OF UNSPECIFIED SITE OF WRIST 07/24/2013 [facility] AIDE, CHUY S 454.8 VARICOSE VEINS 07/24/2013 [facility] AIDE, CHUY S 454.8 VARICOSE VEINS 07/24/2013 BIBI HUITRON, TUAN K 454.8 VARICOSE VEINS 07/24/2013 [facility], CHUY S 454.8 VARICOSE VEINS 07/24/2013 [facility], CHUY S 454.8 VARICOSE VEINS 09/23/2013 [facility], CHUY S 381.81 EUSTACHIAN TUBE DYSFUNCTION 09/23/2013 BIBI HUITRON, TUAN K 381.81 EUSTACHIAN TUBE DYSFUNCTION 09/23/2013 [facility], CHUY S 381.81 EUSTACHIAN TUBE DYSFUNCTION 09/23/2013 [facility], CHUY S 381.81 EUSTACHIAN TUBE DYSFUNCTION 10/28/2013 [...] OTH ABN AND INCONCLUSIVE FINDINGS ON DX 02/22/2017 MAGDA OCONNOR APRN Ot F17.210 NICOTINE DEPENDENCE, CIGARETTES, UNCOMPL 02/22/2017 MAGDA OCONNOR CHE Ot F41.9 ANXIETY DISORDER, UNSPECIFIED 02/22/2017 MAGDA OCONNOR APRN Ot M19.90 UNSPECIFIED OSTEOARTHRITIS, UNSPECIFIED 02/22/2017 MAGDA OCONNOR APRN Ot M54.9 DORSALGIA, UNSPECIFIED 02/22/2017 MAGDA OCONNOR APRN Ot S32.030A WEDGE COMPRESSION FRACTURE OF THIRD LUMB 02/22/2017 MAGDA OCONNOR APRN Ot W10.9XXA FALL (ON) (FROM) UNSPECIFIED STAIRS AND 02/22/2017 MAGDA OCONNOR APRN Ot W22.09XA STRIKING AGAINST OTHER STATIONARY OBJECT 02/22/2017 MAGDA OCONNOR APRN Ot Z85.528 PERSONAL HISTORY OF OTHER MALIGNANT NEOP 02/22/2017 MAGDA OCONNOR APRN Ot Z87.448 PERSONAL HISTORY OF OTHER DISEASES OF UR 02/22/2017 MAGDA OCONNOR APRN Ot Z87.59 PERSONAL HISTORY OF COMP OF PREG, CHLDBR 02/22/2017 MAGDA OCONNOR APRN Ot Z90.5 ACQUIRED ABSENCE OF KIDNEY 02/25/2017 MAGDA OCONNOR APRN Ot Z04.3 ENCOUNTER [...] APRN Ot Z90.5 ACQUIRED ABSENCE OF KIDNEY 07/13/2017 Ot 591 HYDRONEPHROSIS 07/13/2017 Ot 595.9 CYSTITIS NOS 07/13/2017 Ot 595.2 CHRONIC CYSTITIS NEC 07/13/2017 Ot 591 HYDRONEPHROSIS 07/13/2017 WENDYDYLONCHUYEMMA POLLARD Ot Z12.31 ENCNTR SCREEN MAMMOGRAM FOR MALIGNANT NE 07/13/2017 CHUY NGUYEN Ot R92.8 OTH ABN AND INCONCLUSIVE FINDINGS ON DX 07/13/2017 CORTNEY ELIZABETH, LEXI Godoy Ot 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, LUMBAR REGIO 07/13/2017 LEXI BARR MD Ot M48.06 SPINAL STENOSIS, LUMBAR REGION 07/13/2017 CORTNEY ELIZABETH, LEXI Godoy Ot M51.26 OTHER INTERVERTEBRAL DISC DISPLACEMENT, 07/13/2017 LEXI BARR MD Ot S32.049A UNSP FRACTURE OF FOURTH LUMBAR VERTEBRA, 07/13/2017 LEXI BARR MD Ot X58.XXXA EXPOSURE TO OTHER SPECIFIED FACTORS, INI 07/13/2017 LEXI BARR MD Ot Y99.8 OTHER EXTERNAL CAUSE STATUS 07/17/2017 DICK HARTMANN DO Ot M54.9 DORSALGIA, UNSPECIFIED 02/22/2018 DICK HARTMANN DO Ot M54.9 DORSALGIA, UNSPECIFIED Procedures Code Description [place] [address] ROUTINE VENIPUNCTURE 08/16/2012 59138 ESR/SED RATE 08/16/2012 32698 CBC 08/16/2012 13827 CMP 08/16/2012 [id number] GFR CALC (RESULT ONLY) 08/16/2012 65325 VITAMIN D 25-HYDROXY (D2,D3 , TOTAL) 08/16/2012 65637 UA W/MICROSCOPY 08/16/2012 31949 CULTURE URINE 08/19/2012 33933 XRAY CHEST 2 VIEW 2012 [facility]rology N[facility] Alan 2012 62956 XRAY LUMBAR SPINE 2 OR 3 VIEWS 08/29/2012 28227 XRAY THORACIC SPINE 3 VIEWS 08/30/2012 [facility] 09/04/2012 60766 XRAY THORACIC SPINE 3 VIEWS 11/09/2012 59903 ROUTINE VENIPUNCTURE 03/04/2013 69497 CMP 03/04/20135994928 GFR CALC (RESULT ONLY) 03/04/2013 JOINT INJECTION- INTERMEDIATE JOINT 04/11/2013 JOINT INJECTION - SMALL JOINT 07/18/2013 JOINT INJECTION- INTERMEDIATE JOINT 07/18/2013 39592 UA W/ CULTURE IF INDICATED 07/24/2013 57916 ROUTINE VENIPUNCTURE 07/26/2013 79283 CULTURE URINE 07/26/2013 35037 CBC 07/26/20139758164 GFR CALC (RESULT ONLY) 07/26/2013 07079 CMP 07/26/2013 32466 LIPID PANEL 07/26/2013 82226 TSH 07/26/2013 62777 UA W/ CULTURE IF INDICATED 09/23/2013 60192 CULTURE URINE 09/25/2013 JOINT INJECTION- INTERMEDIATE JOINT 10/24/2013 J1100 DEXAMETHASONE SODIUM PHOS, 1 MG 10/24/2013 32164 UA W/ CULTURE IF INDICATED 02/20/2014 08455 CULTURE URINE 02/22/2014 42906 [employer] 09/09/2014 89003 UA LONG DIP 09/09/2014 90824 CULTURE URINE 09/11/2014 Results Test Result Range Comp. Metabolic Panel (14) - 05/12/16 08:36 Glucose, Serum 87 mg/dL 65-99 BUN 10 mg/dL 6-24 Creatinine, Serum 0.77 mg/dL 0.57-1.00 eGFR If NonAfricn Am 89 mL/min/1.73 >59 eGFR If Africn Am 103 mL/min/1.73 >59 BUN/Creatinine Ratio 13 9-23 Sodium, Serum 141 mmol/L 136-144 Potassium, Serum 3.6 mmol/L 3.5-5.2 Chloride, Serum 102 mmol/L 97-106 Carbon Dioxide, Total 21 mmol/L 18-29 Calcium, Serum 8.8 mg/dL 8.7-10.2 Protein, Total, Serum 6.9 g/dL 6.0-8.5 Albumin, Serum 4.2 g/dL 3.5-5.5 Globulin, Total 2.7 g/dL 1.5-4.5 A/G Ratio 1.6 1.1-2.5 Bilirubin, Total <0.2 mg/dL 0.0-1.2 Alkaline Phosphatase, S 84 IU/L 39-117 AST (SGOT) 30 IU/L 0-40 ALT (SGPT) 19 IU/L 0-32 Lipid Panel - 05/12/16 08:36 Cholesterol, Total 163 mg/dL 100-199 Triglycerides 119 mg/dL 0-149 HDL Cholesterol 54 mg/dL >39 VLDL Cholesterol Misbah 24 mg/dL 5-40 LDL Cholesterol Calc 85 mg/dL 0-99 Complete blood count (CBC) with automated white [...] Blood erythrocyte morphology finding identification NORMAL NRG Pap Lb, HPV-hr - 06/22/16 09:03 HPV, high-risk Positive Negative DIAGNOSIS: Comment Specimen adequacy: Comment Clinician provided ICD10: Comment Performed by: Comment QC reviewed by: Comment . . Note: Comment HPV Genotypes 16/18,45 - 06/22/16 09:03 HPV Genotype 16 Negative Negative HPV Genotype 18,45 Negative Negative Urine Culture, Routine - 01/11/17 09:23 Urine Culture, Routine Note Urine Culture, Routine - 02/21/17 09:56 Urine Culture, Routine Note CULTURE, URINE - 05/03/17 12:47 CULTURE, URINE, ROUTINE SEE NOTE NRG CCP ANTIBODY - 09/21/17 16:51 CYCLIC CITRULLINATED PEPTIDE (CCP) AB (IGG) <16 UNITS NRG CULTURE, URINE - 02/05/18 00:00 CULTURE, URINE, ROUTINE SEE NOTE NRG CULTURE, URINE - 02/05/18 11:01 CULTURE, URINE, ROUTINE NRG PDM - 09 PANEL (PROFILE 1) - 02/05/18 11:01 Prescribed Drug 1 Percocet(TM) NRG Creatinine 46.2 mg/dL > or=20.0 pH 7.22 4.5 - 9.0 Oxidant NEGATIVE mcg/mL <200 Amphetamines NEGATIVE ng/mL <500 medMATCH Amphetamines CONSISTENT NRG Benzodiazepines NEGATIVE ng/mL <100 medMATCH Benzodiazepines CONSISTENT NRG Marijuana Metabolite NEGATIVE ng/mL <20 medMATCH Marijuana Metab CONSISTENT NRG Cocaine Metabolite NEGATIVE ng/mL <150 medMATCH Cocaine Metab CONSISTENT NRG Opiates NEGATIVE ng/mL <100 medMATCH Opiates CONSISTENT NRG Oxycodone POSITIVE ng/mL <100 COMMENT NRG Prescribed Drug 2 Lyrica(TM) NRG Noroxycodone 2319 ng/mL <50 medMATCH Noroxycodone CONSISTENT NRG Oxycodone 622 ng/mL <50 medMATCH Oxycodone CONSISTENT NRG Oxymorphone 78 ng/mL <50 medMATCH Oxymorphone CONSISTENT NRG Barbiturates NEGATIVE ng/mL <300 medMATCH Barbiturates CONSISTENT NRG Methadone Metabolite NEGATIVE ng/mL <100 medMATCH Methadone Metab CONSISTENT NRG Phencyclidine NEGATIVE ng/mL <25 medMATCH Phencyclidine CONSISTENT NRG Encounters ACCT No. Visit Date/Time Discharge Status Pt. Type Provider Facility Loc./Unit Complaint [id number] 09/09/2014 08:47:00 09/09/2014 23:59:59 CLS Outpatient CHUY NGUYEN APRN [id number] 02/20/2014 10:37:00 02/20/2014 23:59:59 CLS Outpatient CHUY NGUYEN APRN [id number] 10/24/2013 13:54:00 10/24/2013 23:59:59 CLS Outpatient TUAN MTZ DO [id number] 09/23/2013 08:45:00 09/23/2013 23:59:59 CLS Outpatient CHUY NGUYEN APRN [id number] 07/26/2013 08:01:00 07/26/2013 23:59:59 CLS Outpatient [facility] [id number] 07/18/2013 13:27:00 07/18/2013 23:59:59 CLS Outpatient TUAN MTZ DO [id number] 04/11/2013 15:24:00 04/11/2013 23:59:59 CLS Outpatient TUAN MTZ DO [id number] 08/22/2012 11:49:00 08/22/2012 23:59:59 CLS Outpatient WENDY BOLTON CHUY Serrano [id number] 08/16/2012 11:48:00 08/16/2012 23:59:59 CLS Outpatient WENDY BOLTONDYLONCHUY S [id number] 01/26/2012 12:12:00 01/26/2012 23:59:59 CLS Outpatient [id number] 03/04/2013 08:49:00 Document Registration [id number] 06/29/2016 18:06:00 Document Registration [id number] 07/08/2016 07:05:00 Document Registration [id number] 02/23/2017 16:08:00 Document Registration [id number] 07/13/2017 13:20:00 07/13/2017 13:41:00 DIS Outpatient DICK HARTMANN DO [place] [facility] ER BACK PAIN [id number] 02/25/2017 09:14:00 02/25/2017 23:59:59 CLS Outpatient LEXI BARR MD [facility] RAD CLOSED COMPRESSION FRACTURE [id number] 02/22/2017 20:32:00 02/22/2017 23:22:00 DIS Emergency MAGDA OCONNOR APRN [facility] ER PT FELL,LT EAR INJ,BACK PAIN [id number] 07/15/2016 07:26:00 07/15/2016 23:59:59 CLS Outpatient CHUY NGUYEN [facility] RAD ABNORMAL MAMMO OF LEFT BREAST [id number] 06/28/2016 08:35:00 06/28/2016 23:59:59 CLS Outpatient CHUY NGUYEN [facility] RAD SCREENING [id number] 06/10/2016 05:45:00 06/10/2016 09:36:00 DIS Emergency VIGNESH ELIZABETH, NILTON Sutherland [facility] ER POSS GALLBLADDER PAIN [id number] 04/12/2016 08:26:00 04/26/2016 13:49:00 DIS Outpatient CHUY NGUYEN [facility] REHAB SEVERE SCOLIOSIS THORACIC AND LUMBAR SPINE [id number] 01/28/2015 06:16:00 01/28/2015 06:59:00 DIS Emergency MARY KATE DICK K [facility] ER RT EAR PAIN,FEVER [id number] 12/13/2014 11:24:00 12/13/2014 12:43:00 DIS Emergency GOKUL DIAZ [facility] ER BUG BITE [id number] 11/13/2013 15:45:00 11/14/2013 12:50:00 DIS Inpatient ABDULAZIZ GRAVES MD [facility] SURGICAL SBO, CHOLELITHIASIS , RUQ PX, UTI [id number] 10/28/2013 10:43:00 10/28/2013 13:45:00 DIS Emergency DANIEL ELIZABETH, DOTTIE Cedillo [facility] ER ABD PAIN [id number] 07/15/2013 12:31:00 07/15/2013 13:40:00 DIS Emergency MAGDA OCONNOR APRN [facility] ER RIGHT HAND PAIN [id number] 06/07/2018 12:55:00 ACT Emergency MAGDA OCONNOR APRN [facility] ER R FOOT PAIN [id number] 12/13/2014 11:25:00 Document Registration [id number] 09/27/2012 12:49:00 Document Registration [id number] 09/04/2012 11:44:00 Document Registration [id number] 08/29/2012 10:32:00 Document Registration [id number] 01/20/2012 07:17:00 Document Registration [id number] 01/13/2017 17:07:00 Document Registration [id number] 01/03/2018 08:00:00 01/03/2018 23:59:59 CLS Outpatient CHUY NGUYEN APRN [facility] [id number] 02/05/2018 10:20:00 Document Registration [id number] 02/05/2018 00:00:00 Document Registration [id number] 09/21/2017 15:00:00 Document Registration [id number] 05/03/2017 08:00:00 Document Registration [id number] 05/13/2016 08:46:00 Document Registration
--- NOTE | 2018-06-07 14:07 | Diagnostic Imaging Report ---
EXAMINATION: AP, oblique, and lateral views of the right foot are obtained. There is calcaneal spurring in the plantar surface. There is degenerative change of first MTP joint. There is diffuse degenerative change through the tarsometatarsal joints especially the medial side. There appears to be an old fracture deformity of the fifth metatarsal distally. There is no acute bony abnormality. IMPRESSION: Multifocal chronic finding as described above with no acute appearing bony abnormality. Dictated by: Dictated on workstation # [id number]
[2018-06-07 14:14] VITALS: BP 103/72
== END 2018-06-07 14:14 | disposition home or self-care (01) ==
LOC: EDUNIT# 12:54 → ER 12:55
DX: M79.671 Pain in right foot (principal); F41.9 Anxiety disorder, unspecified; Z88.2 Allergy status to sulfonamides; Z88.6 Allergy status to analgesic agent; Z98.890 Other specified postprocedural states; Z90.5 Acquired absence of kidney; Z87.448 Personal history of other diseases of urinary system; Z85.528 Personal history of other malignant neoplasm of kidney; X50.1XXA Overexertion from prolonged static or awkward postures, initial encounter; Y93.01 Activity, walking, marching and hiking
CPT/HCPCS: 73630

== ENCOUNTER 2018-11-22 14:42 | Inpatient (IN) | payer SELFPAY ==
[~2018-11-22] VITALS: Ht 167.6 cm; Wt 74.8 kg
[2018-11-22] MEDS ORDERED: LACTATED RINGERS 1,000 ML IV SCH (15:15)
[2018-11-22] MEDS ORDERED: HYOSCYAMINE 0.125 MG (LEVSIN) TAB PO ONE (15:15)
[2018-11-22] MEDS ORDERED: KETOROLAC 30 MG/ML VIAL IVP ONE (15:15)
[2018-11-22] MEDS ORDERED: ONDANSETRON 4 MG/2 ML (SDV) Z0FRAN IVP ONE (15:15)
[2018-11-22 15:20] LABS: BASOPHILS % (AUTO) 0 % (0-10); EOSINOPHILS # (AUTO) 0.1 10^3/uL (0.0-0.3); EOSINOPHILS % (AUTO) 1 % (0-10); HEMATOCRIT 37 % (35-52); HEMOGLOBIN 12.8 G/DL (11.5-16.0); LYMPHOCYTES # (AUTO) 0.9 X 10^3 (1.0-4.0); LYMPHOCYTES % (AUTO) 8 % (12-44); MEAN CORPUSCULAR HEMOGLOBIN 32 PG (25-34); MEAN CORPUSCULAR HGB CONC 35 G/DL (32-36); MEAN CORPUSCULAR VOLUME 91 FL (80-99); MEAN PLATELET VOLUME 9.9 FL (7.4-10.4); MONOCYTES # (AUTO) 1.6 X 10^3 (0.0-1.0); MONOCYTES % (AUTO) 13 % (0-12); NEUTROPHILS # (AUTO) 9.3 X 10^3 (1.8-7.8); NEUTROPHILS % (AUTO) 78 % (42-75); PLATELET COUNT 279 10^3/uL (130-400); RED CELL DISTRIBUTION WIDTH 14.3 % (10.0-14.5); WHITE BLOOD COUNT 11.9 10^3/uL (4.3-11.0)
--- NOTE | 2018-11-22 15:30 | ED GI ---
General Chief Complaint: Abdominal/GI Problems Stated Complaint: ABD PAIN Nursing Triage Note: Pt c/o abdominal pain that began yesterday. Pt reports, "intestines are twisted or I have IBS." Pt complains stomach feels "big and hard". Pt c/o pain is more concentrated on RLQ, however now radiating to both sides to the ribs. Pt reports last "normal" BM was yesterday morning and pt had two episode of diarrhea last night. Pt c/o intermittent nausea. Pt has had appendix removed, but has gallbladder Sepsis Screen: No Definite Risk Source of Information: Patient Exam Limitations: No Limitations History of Present Illness Date Seen by Provider: November 22, 2018 Time Seen by Provider: 15:29 Initial Comments To ER with diffuse abdominal pain that began yesterday, states that she was seen here before and told that she had either "twisted intestines or irritable bowel". Diarrhea 2 last night, nausea currently. No fevers. Timing/Duration: 1-2 Days Severity/Quality: Moderate, Cramping Location: Generalized Abdomen Radiation: No Radiation Activities at Onset: None Allergies and Home Medications Allergies Coded Allergies: Sulfa (Sulfonamide Antibiotics) (Unverified Allergy, Unknown, 11/13/13) aspirin (Unverified Allergy, Unknown, 11/13/13) Home Medications Docusate Sodium 100 Mg Capsule, 100 MG PO DAILY PRN for CONSTIPATION, (Reported) NEEDED FOR CONSTIPATION Gabapentin 300 Mg Capsule, 600 MG PO TID, (Reported) TAKES 2 (300MG) CAPSULES Hydrocodone/Acetaminophen 1 Each Tablet, 1 EACH PO Q4H PRN for PAIN-MODERATE TO SEVERE Prescribed by: MAGDA OCONNOR on 02/22/172205 Piroxicam 10 Mg Capsule, 10 MG PO BID, (Reported) Patient Home Medication List Home Medication List Reviewed: Yes Review of Systems Review of Systems Constitutional: see HPI EENTM: No Symptoms Reported Respiratory: No Symptoms Reported Cardiovascular: No Symptoms Reported Gastrointestinal: See HPI, Abdominal Pain Genitourinary: No Symptoms Reported Musculoskeletal: no symptoms reported Skin: no symptoms reported Psychiatric/Neurological: No Symptoms Reported Endocrine: No Symptoms Reported Hematologic/Lymphatic: No Symptoms Reported Past Ptvnqkx-Jskrsi-Pqliya Hx Patient Social History Alcohol Use: Denies Use Recreational Drug Use: No Smoking Status: Current Everyday Smoker Type Used: Cigarettes 2nd Hand Smoke Exposure: Yes Recent Foreign Travel: No Contact w/Someone Who Travel: No Recent Infectious Disease Expo: No Recent Hopitalizations: No Immunizations Up To Date Tetanus Booster (TDap): Unknown Date of Influenza Vaccine: Mar 26, 2012 Past Medical History Surgeries: Yes Section, Nephrectomy Respiratory: No Cardiac: No 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 oz. 74.683334yg; BMI Method:Stated General Appearance: WD/WN, no apparent distress HEENT: PERRL/EOMI, normal ENT inspection Neck: non-tender, full range of motion Respiratory: no respiratory distress, no accessory muscle use Gastrointestinal: normal bowel sounds, soft; No abnormal bowel sounds, No distended; tenderness Extremities: normal range of motion, non-tender Neurologic/Psychiatric: alert, normal mood/affect, oriented x 3 Skin: normal color, warm/dry Progress/Results/Core Measures Results/Orders Lab Results Laboratory Tests Test 11/22/18 15:07 11/22/18 16:34 Range/Units White Blood Count 11.9 H 4.3-11.0 10^3/uL Red Blood Count 4.06 L 4.35-5.85 10^6/uL Hemoglobin 12.8 11.5-16.0 G/DL Hematocrit 37 35-52 % Mean Corpuscular Volume 91 80-99 FL Mean Corpuscular Hemoglobin 32 25-34 PG Mean Corpuscular Hemoglobin Concent 35 32-36 G/DL Red Cell Distribution Width 14.3 10.0-14.5 % Platelet Count 279 130-400 10^3/uL Mean Platelet Volume 9.9 7.4-10.4 FL Neutrophils (%) (Auto) 78 H 42-75 % Lymphocytes (%) (Auto) 8 L 12-44 % Monocytes (%) (Auto) 13 H 0-12 % Eosinophils (%) (Auto) 1 0-10 % Basophils (%) (Auto) 0 0-10 % Neutrophils # (Auto) 9.3 H 1.8-7.8 X 10^3 Lymphocytes # (Auto) 0.9 L 1.0-4.0 X 10^3 Monocytes # (Auto) 1.6 H 0.0-1.0 X 10^3 Eosinophils # (Auto) 0.1 0.0-0.3 10^3/uL Basophils # (Auto) 0.0 0.0-0.1 10^3/uL Neutrophils % (Manual) 78 % Lymphocytes % (Manual) 4 % Monocytes % (Manual) 13 % Eosinophils % (Manual) 3 % Basophils % (Manual) 0 % Band Neutrophils 2 % Blood Morphology Comment NORMAL Sodium Level 136 135-145 MMOL/L Potassium Level 3.8 3.6-5.0 MMOL/L Chloride Level 104 98-107 MMOL/L Carbon Dioxide Level 21 21-32 MMOL/L Anion Gap 11 5-14 MMOL/L Blood Urea Nitrogen 18 7-18 MG/DL Creatinine 0.97 0.60-1.30 MG/DL Estimat Glomerular Filtration Rate 60 BUN/Creatinine Ratio 19 Glucose Level 111 H 70-105 MG/DL Calcium Level 9.1 8.5-10.1 MG/DL Corrected Calcium 8.9 8.5-10.1 MG/DL Total Bilirubin 0.5 0.1-1.0 MG/DL Aspartate Amino Transf (AST/SGOT) 29 5-34 U/L Alanine Aminotransferase (ALT/SGPT) 13 0-55 U/L Alkaline Phosphatase 112 40-136 U/L Total Protein 7.1 6.4-8.2 GM/DL Albumin 4.3 3.2-4.5 GM/DL Lipase 14 8-78 U/L Urine Color YELLOW Urine Clarity CLEAR Urine pH 5 5-9 Urine Specific [place] 1.015 L 1.016-1.022 Urine Protein NEGATIVE NEGATIVE Urine Glucose (UA) NEGATIVE NEGATIVE Urine Ketones NEGATIVE NEGATIVE Urine Nitrite NEGATIVE NEGATIVE Urine Bilirubin NEGATIVE NEGATIVE Urine Urobilinogen NORMAL NORMAL MG/DL Urine Leukocyte Esterase NEGATIVE NEGATIVE Urine RBC (Auto) 1+ H NEGATIVE Urine RBC 0-2 /HPF Urine WBC NONE /HPF Urine Squamous Epithelial Cells 10-25 H /HPF Urine Crystals NONE /LPF Urine Bacteria TRACE /HPF Urine Casts NONE /LPF Urine Mucus NEGATIVE /LPF Urine Culture Indicated NO My Orders Orders - MAGDA OCONNOR DRUGLESS DOCTOR Cbc With Automated Diff (11/22/18 15:11) Comprehensive Metabolic Panel (11/22/18 15:11) Lipase (11/22/18 15:11) Ua Culture If Indicated (11/22/18 15:11) Ed Iv/Invasive Line Start (11/22/18 15:11) Ketorolac Injection (Toradol Injection) (11/22/18 15:15) Hyoscyamine Sl Tablet (Levsin Sl Tablet) (11/22/18 15:15) Ondansetron Injection (Zofran Injectio (11/22/18 15:15) Lactated Ringers (Lr 1000 Ml Iv Solution (11/22/18 15:15) Manual Differential (11/22/18 15:07) Ct Abdomen/Pelvis W (11/22/18 15:27) Iohexol Injection (Omnipaque 350 Mg/Ml 1 (11/22/18 15:45) Di Iv Start (Assessment) .IV start (11/22/18 15:44) Received Contrast (Hold Metformin- Contr (11/22/18 15:45) Sodium Chloride Flush (Catheter Flush Sy (11/22/18 15:45) Ns (Ivpb) (Sodium Chloride 0.9% Ivpb Bag (11/22/18 15:45) Benzocaine Extension Tube (Hurricaine Ex (11/22/18 16:48) Chest 1 View, Ap/Pa Only (11/22/18 17:01) Ng Tube Insert & Assessment (11/22/18 17:01) Medications Given in ED Current Medications Medications Dose Ordered Sig/Venkata Route Start Time Stop Time Status Last Admin Dose Admin Benzocaine 1 ea STK-MED ONCE .ROUTE 11/22/18 16:48 11/22/18 16:54 DC 11/22/18 17:14 1 EA Hyoscyamine Sulfate 0.25 mg ONCE ONCE PO 11/22/18 15:15 11/22/18 15:16 DC 11/22/18 15:24 0.25 MG Iohexol 100 ml ONCE ONCE IV 11/22/18 15:45 11/22/18 15:47 DC 11/22/18 15:52 60 ML Ketorolac Tromethamine 15 mg ONCE ONCE IVP 11/22/18 15:15 11/22/18 15:16 DC 11/22/18 15:23 15 MG Ondansetron HCl 8 mg ONCE ONCE IVP 11/22/18 15:15 11/22/18 15:16 DC 11/22/18 15:24 8 MG Sodium Chloride 10 ml NEEDED PRN IV 11/22/18 15:45 11/22/18 15:53 10 ML Sodium Chloride 100 ml ONCE ONCE IV 11/22/18 15:45 11/22/18 15:47 DC 11/22/18 15:53 80 ML Vital Signs/I&O 11/22/18 14:50 Temp 96.0 Pulse 76 Resp 22 B/P (MAP) 116/86 (96) Pulse Ox 98 O2 Delivery Room Air Blood Pressure Mean: 96 Diagnostic Imaging Diagonstic Imaging: CT Comments NAME: MAUREEN BUTLER MED REC#: [id number] PT STATUS: REG ER : 1965 PHYSICIAN: MAGDA OCONNOR DRUGLESS DOCTOR ADMIT DATE: 11/22/18/ER Draft Date of Exam:11/22/18 CT ABDOMEN/PELVIS W PROCEDURE: CT abdomen and pelvis with contrast. TECHNIQUE: Multiple contiguous axial images were obtained through the abdomen and pelvis after administration of intravenous contrast. Auto Exposure Controls were utilized during the CT exam to meet ALARA standards for radiation dose reduction. INDICATION: Abdominal pain x1 day with nausea, vomiting, diarrhea. History of right nephrectomy. CORRELATION STUDY: CT abdomen pelvis 06/10/2016. FINDINGS: Marked leftward scoliosis of the spine results in distortion of abdominal anatomy. Slight asymmetric atelectasis at the left lung base. No definitive basilar infiltrate. Heart size enlarged. Liver is heterogeneous in its attenuation, periportal edema is present, appears increased and changed from prior study. The portal venous structures appearing to be patent. Definitive contrast filling of the splenic vein however cannot be confirmed. Pancreas, spleen and adrenal glands appear unchanged. The solitary left kidney slightly hypertrophied but otherwise with normal enhancement. No hydronephrosis or obstruction. Multiple small gallstones. Gallbladder otherwise unremarkable. There is moderate aortoiliac calcification. This includes a calcification of the take off the great vessels. Significant calcification likely narrowing at the origin of the celiac trunk and superior mesenteric artery as well as at the left renal artery. Moderate amount of retained gastric contents is present. There is again seen rather diffuse distention of the large portion of small bowel with gas and fluid. While the definitive transition point is not visualized, it appears to be suspect in the right lower quadrant with more decompressed distal small bowel. There is some fluid and gas within the colon. However, the features are most concerning for high degree distal small bowel obstruction. Haziness about the mesentery is present. No definitive portal venous gas or evidence of pneumatosis. Urinary bladder distended. Uterus and adnexa appearing unremarkable. Advanced degenerative change about the scoliotic spine. Asymmetric areas of loss of height. Degenerative change about bilateral hips with rather significant significant cystic change about the left femoral head and acetabulum. IMPRESSION: 1. Findings are most concerning for distal high-degree small bowel obstruction. The severity of the distention appears more severe from prior study. 2. Periportal edema present. The portal vein appears patent. Confirmatory patency of the splenic vein however cannot be demonstrate on this study. However, there is no suggestion for significant splenomegaly. 3. Cholelithiasis multiple small stones. 4. Rather extensive atherosclerotic vascular calcification. There is resultant, what appears to be likely significant narrowing at the takeoff of the celiac trunk superior mesenteric artery as well as left renal artery. Dictated on workstation # [id number] Dict: 11/22/18 1617 Trans: 11/22/18 1633 CV [id number] Interpreted by: MONICA TOTH DO Electronically signed by: NAME: MAUREEN BUTLER [facility] REC#: [id number] PT STATUS: ADM IN : 1965 PHYSICIAN: MAGDA OCONNOR APRN ADMIT DATE: 11/22/18 Draft Date of Exam:11/22/18 CHEST 1 VIEW, AP/PA ONLY INDICATION: Evaluate tube placement. FINDINGS: Heart size is normal. There is mild venous congestion. There is no pleural effusion or pneumothorax. Mediastinum is unremarkable. The nasogastric tube is in satisfactory position. IMPRESSION: 1. The nasogastric tube is in satisfactory position with its tip in the body of the stomach. 2. Mild central pulmonary venous congestion. Dictated on workstation # [id number] Dict: 11/22/18 1725 Trans: 11/22/18 1729 [id number] Interpreted by: SHONNA PRATT MD Electronically signed by: Departure Communication (Admissions) Time/Spoke to Consulting Phy: 17:08 Dr. King has been here to see the patient. Agrees with plan of care. Will consult. Impression Primary Impression: Small bowel obstruction Disposition: ADMITTED INPATIENT Condition: Stable Admissions Decision to Admit Reason: Admit from ER (General) Decision to Admit/Date: November 22, 2018 Time/Decision to Admit Time: 17:01 Departure-Patient Inst. Referrals: NO,LOCAL PHYSICIAN (PCP) Primary Care Physician MAGDA OCONNOR APRN November 22, 2018 15:30
--- NOTE | 2018-11-22 15:30 | NUR ---
patient attempted to urinate. verbalized unable to at this time.
[2018-11-22 15:35] LABS: ALBUMIN 4.3 GM/DL (3.2-4.5); BILIRUBIN,TOTAL 0.5 MG/DL (0.1-1.0); CALCIUM 9.1 MG/DL (8.5-10.1); CREATININE SERUM 0.97 MG/DL (0.60-1.30); POTASSIUM 3.8 MMOL/L (3.6-5.0); TOTAL PROTEIN 7.1 GM/DL (6.4-8.2)
[2018-11-22] MEDS ORDERED: HOLD METFORMIN - RECEIVED CONTRAST 20 ML VIAL IV SCH (15:45)
[2018-11-22] MEDS ORDERED: CATHETER FLUSH 10 ML SYR IV PRN ×2 (15:45→19:00)
[2018-11-22] MEDS ORDERED: IOHEXOL 350 MG/ML 100 ML (OMNIPAQUE 350) VIAL IV ONE (15:45)
[2018-11-22] MEDS ORDERED: NS 100 ML (IVPB) BAG IV ONE (15:45)
[2018-11-22 15:51] LABS: BAND NEUTROPHILS 2 %; BASOPHILS % (MANUAL) 0 %; EOSINOPHILS % (MANUAL) 3 %; LYMPHOCYTES % (MANUAL) 4 %; MONOCYTES % (MANUAL) 13 %; NEUTROPHILS % (MANUAL) 78 %
[2018-11-22 15:52] LABS: RBC MORPH NORMAL
--- NOTE | 2018-11-22 16:34 | Diagnostic Imaging Report ---
PROCEDURE: CT abdomen and pelvis with contrast. TECHNIQUE: Multiple contiguous axial images were obtained through the abdomen and pelvis after administration of intravenous contrast. Auto Exposure Controls were utilized during the CT exam to meet ALARA standards for radiation dose reduction. INDICATION: Abdominal pain x1 day with nausea, vomiting, diarrhea. History of right nephrectomy. CORRELATION STUDY: CT abdomen pelvis 06/10/2016. FINDINGS: Marked leftward scoliosis of the spine results in distortion of abdominal anatomy. Slight asymmetric atelectasis at the left lung base. No definitive basilar infiltrate. Heart size enlarged. Liver is heterogeneous in its attenuation, periportal edema is present, appears increased and changed from prior study. The portal venous structures appearing to be patent. Definitive contrast filling of the splenic vein however cannot be confirmed. Pancreas, spleen and adrenal glands appear unchanged. The solitary left kidney slightly hypertrophied but otherwise with normal enhancement. No hydronephrosis or obstruction. Multiple small gallstones. Gallbladder otherwise unremarkable. There is moderate aortoiliac calcification. This includes a calcification of the take off the great vessels. Significant calcification likely narrowing at the origin of the celiac trunk and superior mesenteric artery as well as at the left renal artery. Moderate amount of retained gastric contents is present. There is again seen rather diffuse distention of the large portion of small bowel with gas and fluid. While the definitive transition point is not visualized, it appears to be suspect in the right lower quadrant with more decompressed distal small bowel. There is some fluid and gas within the colon. However, the features are most concerning for high degree distal small bowel obstruction. Haziness about the mesentery is present. No definitive portal venous gas or evidence of pneumatosis. Urinary bladder distended. Uterus and adnexa appearing unremarkable. Advanced degenerative change about the scoliotic spine. Asymmetric areas of loss of height. Degenerative change about bilateral hips with rather significant significant cystic change about the left femoral head and acetabulum. IMPRESSION: 1. Findings are most concerning for distal high-degree small bowel obstruction. The severity of the distention appears more severe from prior study. 2. Periportal edema present. The portal vein appears patent. Confirmatory patency of the splenic vein however cannot be demonstrate on this study. However, there is no suggestion for significant splenomegaly. 3. Cholelithiasis multiple small stones. 4. Rather extensive atherosclerotic vascular calcification. There is resultant, what appears to be likely significant narrowing at the takeoff of the celiac trunk superior mesenteric artery as well as left renal artery. Dictated by: Dictated on workstation # [id number]
[2018-11-22 16:40] LABS: BILIRUBIN,URINE NEGATIVE (NEGATIVE); CLARITY,URINE CLEAR; COLOR,URINE YELLOW; GLUCOSE, URINE (UA) NEGATIVE (NEGATIVE); KETONES,URINE NEGATIVE (NEGATIVE); LEUKOCYTE ESTERASE ,URINE NEGATIVE (NEGATIVE); NITRITE,URINE NEGATIVE (NEGATIVE); PH,URINE 5 (5-9); PROTEIN,URINE NEGATIVE (NEGATIVE); UROBILINOGEN,URINE NORMAL (NORMAL)
[2018-11-22 16:47] LABS: BACTERIA,URINE TRACE /HPF; RBC,URINE 0-2 /HPF
[2018-11-22] MEDS ORDERED: HURRICAINE EXT TUBE (BENZOCAINE) ONE (16:48)
[2018-11-22] MEDS ORDERED: fentaNYL INJECTION 100 MCG/2 ML AMP ONE (17:16)
--- NOTE | 2018-11-22 17:30 | Diagnostic Imaging Report ---
INDICATION: Evaluate tube placement. FINDINGS: Heart size is normal. There is mild venous congestion. There is no pleural effusion or pneumothorax. Mediastinum is unremarkable. The nasogastric tube is in satisfactory position. IMPRESSION: 1. The nasogastric tube is in satisfactory position with its tip in the body of the stomach. 2. Mild central pulmonary venous congestion. Dictated by: Dictated on workstation # [id number]
--- NOTE | 2018-11-22 17:45 | NUR ---
MAUREEN BUTLER admitted to room 406-1, with an admitting diagnosis of small bowel obstruction, on 11/22/18 from ED via wheelchair, accompanied by staff. MAUREEN BUTLER introduced to surroundings, call light, bed controls, phone, TV, temperature control, lights, meal times, smoking policy, visitor policy, side rail policy, bathrooms and showers. Patient Rights given to patient in the handbook. MAUREEN BUTLER verbalizes understanding that [facility] is not responsible for the loss or damage to any personal effects or valuables that are kept in the patients possession during their hospitalization. The following Patient Care Plans were discussed with the : Discharge Planning, medications, pain management, and dehydration. MAUREEN BUTLER verbalizes understanding of Interdisciplinary Patient Education. Patient and/or family were informed about the Rapid Response Team and its purpose.
[2018-11-22 17:54] VITALS: BP 134/84
[2018-11-22] MEDS ORDERED: NICOTINE 21 MG (NICODERM) PATCH TD NR (18:15)
--- OUTSIDE RECORDS SUMMARY | 2018-11-22 18:46 | XMS REPORT ---
Author Author CHUY NGUYEN Organization [facility] Address [address] [place] [address] Care Team Providers Care Academic Services Coordinator Name Role Phone CHUY NGUYEN Unavailable PROBLEMS Type Condition ICD9-CM Code [id number] Code Onset Dates Condition Status SNOMED Code Problem Other chronic pain G89.29 Active 50072821 Problem Arthralgia M25.50 Active 55798357 Problem Major depressive disorder, single episode, unspecified F32.9 Active 03910244 Problem Moderate episode of recurrent major depressive disorder F33.1 Active 164470087 Problem Dysthymia F34.1 Active 20470124 Problem Pansinusitis, unspecified chronicity J32.4 Active 005650526 Problem Rotator cuff syndrome of right shoulder M75.101 Active 065289477019885 Problem Acute constipation K59.00 Active 942510596 Problem Primary osteoarthritis of right knee M17.11 Active [id number] Problem 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 Active [id number] ALLERGIES No Information ENCOUNTERS Encounter Location Date Diagnosis [facility] [id number] [place] [address] October, [facility] [id number] [place] [address] October, [facility] [id number] [place] [address] October, Arthralgia M25.50 [facility] [id number] [place] [address] Sep, Arthralgia M25.50 [facility] [id number] [place] [address] Sep, [facility] [address] [address] Sep, Pansinusitis, unspecified chronicity J32.4 and Cough R05 [place] [address] [address] Sep, Arthralgia M25.50 and Moderate episode of recurrent major depressive disorder F33.1 [facility] [id number] [place] [address] Aug, Allergic dermatitis L23.9 ; Acute bronchitis, unspecified organism J20.9 and Urticaria L50.9 [place] [address] [address] Aug, [place] [address] [address] Aug, Arthralgia M25.50 ; Moderate episode of recurrent major depressive disorder F33.1 ; Bronchitis J40 ; Dysfunction of right eustachian tube H69.81 and Long-term use of high-risk medication Z79.899 [place] [address] [address] Aug, [place] [address] [address] Jul, [place] [id number] [place] [address] Jul, Moderate episode of recurrent major depressive disorder F33.1 ; Other chronic pain G89.29 and Scoliosis, unspecified scoliosis type, unspecified spinal region M41.9 [facility] [id number] [place] [address] Jul, [place] [address] [address] Jun, [place] [id number] [place] [address] May, Arthralgia of multiple joints M25.50 [place] [id number] [place] [address] May, Rotator cuff syndrome of right shoulder M75.101 [facility] [id number] [place] [address] 14 May, 2018 [facility] [id number] [place] [address] May, Arthralgia M25.50 [facility] [id number] [place] [address] May, [facility] [id number] [place] [address] 06 May, 2018 Arthralgia M25.50 and Other chronic pain G89.29 [facility] [id number] [place] [address] Apr, [facility] [id number] [place] [address] Apr, [facility] [id number] [place] [address] 16 Apr, 2018 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 [facility] [id number] [place] [address] 16 Apr, 2018 Arthralgia of multiple joints M25.50 [facility] [id number] [place] [address] 13 Apr, 2018 Other chronic pain G89.29 and Myalgia M79.1 [facility] [id number] [place] [address] 09 Apr, 2018 [facility] [id number] [place] [address] 08 Apr, 2018 Arthralgia of multiple joints M25.50 and Primary osteoarthritis of right knee M17.11 [facility] [id number] [place] [address] 07 Apr, 2018 Acute constipation K59.00 ; Arthralgia M25.50 ; Dysuria R30.0 ; Other chronic pain G89.29 ; Pain in left knee M25.562 and Pain in right knee M25.561 [place] [id number] [place] [address] 16 Mar, 2018 Other chronic pain G89.29 and Myalgia M79.1 [place] [address] [address] 20 Feb, 2018 Trochanteric bursitis, right hip M70.61 ; Chondromalacia, right knee M94.261 and 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 [place] [address] [address] 18 Feb, 2018 [place] [address] [address] 14 Feb, 2018 Other chronic pain G89.29 and Myalgia M79.1 [place] [address] [address] 30 Jan, 2018 [place] [address] [address] Jan, Right hip pain M25.551 and Opioid use disorder, mild, in controlled environment F11.10 [place] [id number] [place] [address] Jan, Other chronic pain G89.29 and Myalgia M79.1 [place] [id number] [place] [address] 16 Jan, 2018 Urinary tract infection without hematuria, site unspecified N39.0 [place] [address] [address] 13 Jan, 2018 Therapeutic drug monitoring Z51.81 ; Scoliosis, unspecified scoliosis type, unspecified spinal region M41.9 ; Chronic prescription opiate use Z79.891 ; Dysthymia F34.1 ; Alcohol use Z78.9 and Frequent urinary tract infections N39.0 [place] [id number] [place] [address] Dec, Other chronic pain G89.29 and Myalgia M79.1 [place] [id number] [place] [address] Dec, Impacted cerumen, right ear H61.21 and Dysfunction of right eustachian tube H69.81 [place] [id number] [place] [address] Nov, Myalgia M79.1 and Other chronic pain G89.29 [place] [id number] [place] [address] October, Other chronic pain G89.29 and Myalgia M79.1 [place] [id number] [place] [address] Sep, Other chronic pain G89.29 [place] [id number] [place] [address] Aug, Other chronic pain G89.29 [place] [id number] [place] [address] Aug, Scoliosis (and kyphoscoliosis), idiopathic M41.20 [place] [id number] [place] [address] Aug, [place] [id number] [place] [address] Aug, Dysuria R30.0 ; Scoliosis, unspecified scoliosis type, unspecified spinal region M41.9 ; Encounter for therapeutic drug level monitoring Z51.81 and Alcohol use Z78.9 [place] [id number] [place] [address] Aug, Other chronic pain G89.29 [place] [id number] [place] [address] Jul, Chronic urinary tract infection N39.0 [facility] [id number] [place] [address] Jul, Other chronic pain G89.29 [facility] [id number] [place] [address] Jun, [place] [id number] [place] [address] Jun, [facility] [id number] [place] [address] Jun, Acute left-sided thoracic back pain M54.6 [facility] [id number] [place] [address] Jun, Cough R05 and Acute bilateral thoracic back pain M54.6 [facility] [id number] [place] [address] Jun, Back pain, unspecified back location, unspecified back pain laterality, unspecified chronicity M54.9 and Left flank pain R10.9 [place] [id number] [place] [address] Jun, Other chronic pain G89.29 [place] [id number] [place] [address] Jun, Myalgia M79.1 [place] [id number] [place] [address] May, Other chronic pain G89.29 [place] [address] [place] [address] 07 May, 2017 Myalgia M79.1 and Fatigue due to exposure, subsequent encounter T73.2XXD [place] [address] [place] [address] 05 May, 2017 Fatigue due to exposure, subsequent encounter T73.2XXD [place] [id number] [place] [address] 15 Apr, 2017 Other chronic pain G89.29 and Myalgia M79.1 [place] [address] [address] Apr, Closed nondisplaced fracture of phalanx of left great toe with routine healing, unspecified phalanx, subsequent encounter S92.405D ; Dysuria R30.0 ; Localized edema R60.0 and Arthralgia M25.50 [place] [address] [address] Mar, Other chronic pain G89.29 and Myalgia M79.1 [place] [address] [address] Mar, [place] [address] [address] Mar, Dysuria R30.0 ; Other chronic pain G89.29 ; Scoliosis, unspecified scoliosis type, unspecified spinal region M41.9 and Chronic urinary tract infection N39.0 [place] [address] [address] Feb, Arthralgia M25.50 and Myalgia M79.1 [place] [id number] [place] [address] Feb, [place] [id number] [place] [address] Feb, [place] [id number] [place] [address] 06 Feb, 2017 Closed compression fracture of L4 lumbar vertebra with routine healing, subsequent encounter S32.040D ; Closed nondisplaced fracture of phalanx of left great toe with routine healing, unspecified phalanx, subsequent encounter S92.405D and Chronic urinary tract infection N39.0 [place] [address] [address] Jan, Closed compression fracture of fourth lumbar vertebra, initial encounter S32.040A [place] [address] [place] [address] Jan, Urinary tract infection, site not specified N39.0 [facility] [id number] [place] [address] Jan, [place] [id number] [place] [address] Jan, [place] [id number] [place] [address] Jan, Arthralgia M25.50 and Myalgia M79.1 [place] [id number] [place] [address] Jan, Need for prophylaxis against urinary tract infection Z29.8 and Urinary tract infection, site not specified N39.0 [place] [id number] [place] [address] Dec, Urinary tract infection, site not specified N39.0 and Need for prophylaxis against urinary tract infection Z29.8 [place] [address] [place] [address] Dec, Major depressive disorder, single episode, unspecified F32.9 ; Myalgia M79.1 ; Arthralgia M25.50 and long-term 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 Z79.891 [place] [address] [place] [address] Dec, Other chronic pain G89.29 and Dysuria R30.0 [place] [id number] [place] [address] Nov, long-term 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 Z79.891 [place] [address] [place] [address] Nov, Acute midline low back pain without sciatica M54.5 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 [facility] [address] [address] Nov, [facility] [id number] [place] [address] October, [facility] [id number] [place] [address] October, [facility] [id number] [place] [address] Sep, Right leg pain M79.604 [facility] [id number] [place] [address] Sep, [facility] [id number] [place] [address] Aug, Right leg pain M79.604 [facility] [id number] [place] [address] Jul, [facility] [id number] [place] [address] Jul, Arthralgia M25.50 and Right leg pain M79.604 [facility] [address] [place] [address] Jun, Arthralgia M25.50 [facility] [address] [place] [address] Jun, [facility] [id number] [place] [address] Jun, Right leg pain M79.604 [facility] [id number] [place] [address] Jun, Right leg pain M79.604 [facility] [address] [place] [address] Jun, Abnormal mammogram of left breast R92.8 [facility] [address] [address] May, Routine gynecological examination V72.31 ; Breast cancer screening Z12.39 ; Cervical cancer screening Z12.4 ; Colon cancer screening Z12.11 and Calculus of gallbladder without cholecystitis without obstruction K80.20 [place] [address] [address] May, Arthralgia M25.50 [place] [address] [address] Apr, Arthralgia M25.50 [place] [address] [address] 17 Apr, 2016 Screening, lipid Z13.220 [place] [address] [address] 14 Apr, 2016 Other chronic pain G89.29 ; Scoliosis, unspecified scoliosis type, unspecified spinal region M41.9 ; Right leg pain M79.604 ; Major depressive disorder, single episode, unspecified F32.9 ; Fatigue due to exposure, subsequent encounter T73.2XXD ; Dysthymia F34.1 and Screening, lipid Z13.220 [place] [address] [address] Apr, Arthralgia M25.50 [place] [address] [address] Mar, Dysthymia 300.4 [place] [address] [address] Mar, Arthralgia M25.50 [place] [address] [address] Feb, Arthralgia M25.50 [place] [address] [address] Jan, Arthralgia M25.50 [place] [address] [address] Dec, 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 [facility] [id number] [place] [address] Dec, [facility] [id number] [place] [address] Dec, Right leg pain M79.604 and Scoliosis, unspecified scoliosis type, unspecified spinal region M41.9 [facility] [id number] [place] [address] Dec, Right leg pain M79.604 and Scoliosis, unspecified scoliosis type, unspecified spinal region M41.9 [place] [id number] [place] [address] Dec, Arthralgia M25.50 [place] [id number] [place] [address] Nov, Arthralgia M25.50 [place] [id number] [place] [address] October, Arthralgia M25.50 and Scoliosis, unspecified scoliosis type, unspecified spinal region M41.9 [facility] [address] [place] [address] Sep, [place] [id number] [place] [address] Aug, [place] [id number] [place] [address] Aug, Arthralgia M25.50 ; Myalgia M79.1 and Scoliosis M41.9 [place] [id number] [place] [address] Jul, Other chronic pain G89.29 [facility] [address] [place] [address] Jul, Other chronic pain G89.29 [facility] [address] [place] [address] Jul, Impingement syndrome of both shoulders M75.41 [place] [id number] [place] [address] Jun, [facility] [id number] [place] [address] Jun, [place] [id number] [place] [address] Jun, Scoliosis (and kyphoscoliosis), idiopathic M41.20 and Other chronic pain G89.29 [facility] [id number] [place] [address] Jun, Upper respiratory tract infection, unspecified type 465.9 and Rhinorrhea J34.89 [place] [id number] [place] [address] May, [place] [id number] [place] [address] May, [place] [id number] [place] [address] Apr, Dysuria R30.0 ; Urinary tract infection, site not specified N39.0 and Hematuria, unspecified R31.9 [place] [id number] [place] [address] Apr, [place] [id number] [place] [address] Mar, Family history of early CAD Z82.49 [place] [address] [address] 15 Mar, 2015 Other chronic pain G89.29 [place] [id number] [place] [address] 08 Mar, 2015 Impingement syndrome of both shoulders M75.41 [place] [id number] [place] [address] Mar, Other chronic pain G89.29 ; Dysthymia F34.1 ; Family history of early CAD Z82.49 ; Dysuria R30.0 and Other specified disorders of Eustachian tube, right ear H69.81 [facility] [id number] [place] [address] Mar, [facility] [address] [address] Feb, [facility] [id number] [place] [address] Jan, [facility] [id number] [place] [address] Jan, Eustachian tube dysfunction 381.81 and Dysthymia 300.4 [facility] [id number] [place] [address] Dec, [facility] [id number] [place] [address] Nov, Impingement syndrome of both shoulders 726.2 [facility] [id number] [place] [address] Nov, [facility] [id number] [place] [address] Nov, [facility] [id number] [place] [address] Nov, Urgency of urination 788.63 [facility] [id number] [place] [address] October, [facility] [id number] [place] [address] October, [facility] [id number] [place] [address] Sep, [facility] [id number] [place] [address] Sep, [facility] [address] [id number] [place] [address] Aug, [facility] [place] [facility] [address] [id number] [place] [address] Aug, [facility] [place] [facility] [address] [id number] [place] [address] Aug, [facility] [place] [facility] [address] [id number] [place] [address] Aug, [facility] [place] [facility] [address] [id number] [place] [address] Aug, [facility] [place] [facility] [address] [facility] [id number] [place] [address] Aug, [facility] [place] [facility] [address] [facility] [id number] [place] [address] Aug, [facility] [place] [facility] [address] [id number] [place] [address] Jul, [facility] [place] [facility] [address] [facility] [id number] [place] [address] Jul, [facility] [place] [facility] [address] [facility] [id number] [place] [address] Jul, [facility] [place] [facility] [address] [facility] [id number] [place] [address] Jul, [facility] [place] [facility] [address] [facility] [id number] [place] [address] Jul, [facility] [place] [facility] [address] [id number] [place] [address] Jul, [facility] [place] [facility] [address] [facility] [id number] [place] [address] Jun, [facility] [place] [facility] [address] [id number] [place] [address] Jun, [facility] [place] [facility] [address] [id number] [place] [address] May, [facility] [place] [facility] [address] [id number] [place] [address] May, [facility] [place] [facility] [address] [facility] [id number] [place] [address] May, [facility] [place] [facility] [address] [id number] [place] [address] May, [facility] [place] [facility] [address] [id number] [place] [address] Mar, [facility] [place] [facility] [address] [id number] [place] [address] Mar, [facility] [place] [facility] [address] [id number] [place] [address] Feb, [facility] [place] [facility] [address] [id number] [place] [address] Feb, [facility] [place] [facility] [address] [id number] [place] [address] Jan, [facility] [place] [facility] [address] [id number] [place] [address] Jan, [facility] [place] [facility] [address] [id number] [address] Jan, [facility] [place] [facility] [address] [id number] [address] Jan, [facility] [place] [facility] [address] [id number] [place] [address] Jan, [facility] [place] [facility] [address] [id number], [place] [address] Nov, [facility] [place] [facility] [address] [id number] [place] [address] Nov, [facility] [place] [facility] [address] [id number] [place] [address] October, [facility] [place] [facility] [address] [id number] [place] [address] October, [facility] [place] [facility] [address] [id number] [place] [address] October, [facility] [place] [facility] [address] [id number] [place] [address] October, [facility] [place] [facility] [address] [id number] [place] [address] Sep, [facility] [place] [facility] [address] [id number] [place] [address] Aug, [facility] [place] [facility] [address] [id number] [place] [address] Aug, [facility] [place] [facility] [address] [id number] [place] [address] Aug, [facility] [place] [facility] [address] [id number] [place] [address] Aug, [facility] [place] [facility] [address] [id number] [place] [address] Jul, [facility] [place] [facility] [address] [id number] [place] [address] Jul, [facility] [place] [facility] [address] [id number] [place] [address] Jun, [facility] [place] [facility] [address] [id number] [place] [address] Jun, [facility] [place] [facility] [address] [id number] [place] [address] Jun, [facility] [place] [facility] [address] [id number] [place] [address] Jun, [facility] [place] [facility] [address] [id number] [place] [address] Jun, [facility] [address] [id number] [place] [address] Jun, [facility] [place] [facility] [address] [id number] [place] [address] Mar, [facility] [place] [facility] [address] [id number] [place] [address] Mar, [facility] [place] [facility] [address] [id number] [place] [address] Feb, [facility] [place] [facility] [address] [id number] [place] [address] Feb, [facility] [place] [facility] [address] [id number] [place] [address] Feb, [facility] [place] [facility] [address] [id number] [place] [address] Jan, [facility] [place] [facility] [address] [id number] [place] [address] Jan, [facility] [place] [facility] [address] [id number] [place] [address] Dec, [facility] [place] [facility] [address] [id number] [address] Nov, [facility] [place] [facility] [address] [id number] [place] [address] Sep, [facility] [place] [facility] [address] [id number][place] [address] Aug, [facility] [place] [facility] [address] [id number] [place] [address] Aug, [facility] [place] [facility] [address] [id number] [place] [address] Aug, [facility] [place] [facility] [address] [id number], [place] [address] Jul, [facility] [place] [facility] [address] [id number], [place] [address] Jul, [facility] [place] [facility] [address] [id number] [place] [address] Jul, [facility] [place] [facility] [address] [id number] [place] [address] Jul, [facility] [place] [facility] [address] [id number] [place] [address] Jul, [facility] [place] [facility] [address] [id number] [place] [address] Apr, [facility] [place] [facility] [address] [id number] [place] [address] Apr, [facility] [place] [facility] [address] [id number] [place] [address] Jan, [facility] [place] [facility] [address] [id number] [place] [address] Jan, [facility] [place] [facility] [address] [id number] [place] [address] Dec, [facility] [place] [facility] [address] [id number] [place] [address] Dec, [facility] [place] [facility] [address] [facility] [id number] [place] [address] Dec, [facility] [place] [facility] [address] [id number] [place] [address] Dec, [facility] [place] [facility] [address] [id number] [place] [address] Dec, [facility] [place] [facility] [address] [id number] [place] [address] October, [facility] [place] [facility] [address] [id number] [place] [address] Aug, [facility] [place] [facility] [address] [id number] [place] [address] Aug, [facility] [address] [facility] [id number], [place] [address] Aug, [facility] [address] [facility] [id number], [place] [address] Jul, [facility] [address] [facility] [id number], [place] [address] May, [facility] [address] [facility] [id number], [place] [address] Apr, [facility] [address] [facility] [id number], [place] [address] May, [facility] [id number], [place] [address] May, [facility] [id number], [place] [address] May, [facility] [id number], [place] [address] Mar, [facility] [address] [id number] [address] Mar, [facility] [address] [id number], [place] [address] Aug, IMMUNIZATIONS No Known Immunizations SOCIAL HISTORY Never Assessed REASON FOR VISIT Controlled Med Refill 08/29/18 PLAN OF CARE VITAL SIGNS MEDICATIONS Medication Instructions Dosage Frequency Start Date End Date Duration Status Percocet 10-325 MG Orally 5 times per day 1 tablet as needed Jul, 28 days Active RESULTS No Results PROCEDURES No Known procedures INSTRUCTIONS MEDICATIONS ADMINISTERED No Known Medications MEDICAL (GENERAL) HISTORY Type Description Date Medical History chronic pain Medical History arthritis Surgical History Nephrectomy - age 3 Surgical History Appendectomy Hospitalization History surgery Hospitalization History childbirth x 3
--- OUTSIDE RECORDS SUMMARY | 2018-11-22 18:46 | XMS REPORT ---
Author Author Migration, Doctor Organization [facility] Address Unknown Phone Unavailable Care Team Providers Care Group Cio Name Role Phone Migration, Doctor Unavailable Unavailable PROBLEMS Type Condition ICD9-CM Code [id number] Code Onset Dates Condition Status SNOMED Code Problem Other chronic pain G89.29 Active 99108564 Problem Arthralgia M25.50 Active 48405835 Problem Major depressive disorder, single episode, unspecified F32.9 Active 83954562 Problem Moderate episode of recurrent major depressive disorder F33.1 Active 694821880 Problem Dysthymia F34.1 Active 32980432 Problem Pansinusitis, unspecified chronicity J32.4 Active 254002481 Problem Rotator cuff syndrome of right shoulder M75.101 Active 141614833083643 Problem Acute constipation K59.00 Active 111436840 Problem Primary osteoarthritis of right knee M17.11 Active 933329068096817 Problem 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 Active [id number] ALLERGIES No Information ENCOUNTERS Encounter Location Date Diagnosis [facility] [id number] [place] [address] October, [facility] [id number] [place] [address] October, [facility] [id number] [place] [address] October, Arthralgia M25.50 [facility] [id number] [place] [address] Sep, Arthralgia M25.50 [facility] [id number] [place] [address] Sep, [facility] [id number] [place] [address] Sep, Pansinusitis, unspecified chronicity J32.4 and Cough R05 [facility] [id number] [place] [address] Sep, Arthralgia M25.50 and Moderate episode of recurrent major depressive disorder F33.1 [facility] [id number] [place] [address] Aug, Allergic dermatitis L23.9 ; Acute bronchitis, unspecified organism J20.9 and Urticaria L50.9 [facility] [id number] [place] [address] Aug, [facility] [address] [address] Aug, Arthralgia M25.50 ; Moderate episode of recurrent major depressive disorder F33.1 ; Bronchitis J40 ; Dysfunction of right eustachian tube H69.81 and Long-term use of high-risk medication Z79.899 [facility] [id number] [place] [address] Aug, [facility] [id number] [place] [address] Jul, [facility] [id number] [place] [address] Jul, Moderate episode of recurrent major depressive disorder F33.1 ; Other chronic pain G89.29 and Scoliosis, unspecified scoliosis type, unspecified spinal region M41.9 [facility] [id number] [place] [address] Jul, [facility] [id number] [place] [address] Jun, [facility] [facility] [address] [address] May, Arthralgia of multiple joints M25.50 [facility] [id number] [place] [address] May, Rotator cuff syndrome of right shoulder M75.101 [facility] [id number] [place] [address] 14 May, 2018 [facility] [id number] [place] [address] May, Arthralgia M25.50 [facility] [id number] [place] [address] May, [facility] [id number] [place] [address] May, Arthralgia M25.50 and Other chronic pain G89.29 [place] [address] [address] Apr, [facility] [id number] [place] [address] Apr, [place] [facility] [address] [address] Apr, 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 [facility] [id number] [place] [address] 16 Apr, 2018 Arthralgia of multiple joints M25.50 [place] [facility] [id number] [place] [address] 13 Apr, 2018 Other chronic pain G89.29 and Myalgia M79.1 [facility] [id number] [place] [address] 09 Apr, 2018 [facility] [id number] [place] [address] 08 Apr, 2018 Arthralgia of multiple joints M25.50 and Primary osteoarthritis of right knee M17.11 [facility] [id number] [place] [address] 07 Apr, 2018 Acute constipation K59.00 ; Arthralgia M25.50 ; Dysuria R30.0 ; Other chronic pain G89.29 ; Pain in left knee M25.562 and Pain in right knee M25.561 [facility] [id number] [place] [address] Mar, Other chronic pain G89.29 and Myalgia M79.1 [facility] [id number] [place] [address] 20 Feb, 2018 Trochanteric bursitis, right hip M70.61 ; Chondromalacia, right knee M94.261 and 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 [facility] [id number] [place] [address] 18 Feb, 2018 [facility] [id number] [place] [address] 14 Feb, 2018 Other chronic pain G89.29 and Myalgia M79.1 [facility] [id number] [place] [address] Jan, [facility] [id number] [place] [address] Jan, Right hip pain M25.551 and Opioid use disorder, mild, in controlled environment F11.10 [facility] [id number] [place] [address] Jan, Other chronic pain G89.29 and Myalgia M79.1 [facility] [id number] [place] [address] Jan, Urinary tract infection without hematuria, site unspecified N39.0 [facility] [id number] [place] [address] 13 Jan, 2018 Therapeutic drug monitoring Z51.81 ; Scoliosis, unspecified scoliosis type, unspecified spinal region M41.9 ; Chronic prescription opiate use Z79.891 ; Dysthymia F34.1 ; Alcohol use Z78.9 and Frequent urinary tract infections N39.0 [facility] [id number] [place] [address] Dec, Other chronic pain G89.29 and Myalgia M79.1 [facility] [id number] [place] [address] Dec, Impacted cerumen, right ear H61.21 and Dysfunction of right eustachian tube H69.81 [facility] [id number] [place] [address] Nov, Myalgia M79.1 and Other chronic pain G89.29 [facility] [id number] [place] [address] October, Other chronic pain G89.29 and Myalgia M79.1 [facility] [id number] [place] [address] Sep, Other chronic pain G89.29 [facility] [address] [address] Aug, Other chronic pain G89.29 [facility] [id number] [place] [address] Aug, Scoliosis (and kyphoscoliosis), idiopathic M41.20 [facility] [id number] [place] [address] Aug, [facility] [id number] [place] [address] Aug, Dysuria R30.0 ; Scoliosis, unspecified scoliosis type, unspecified spinal region M41.9 ; Encounter for therapeutic drug level monitoring Z51.81 and Alcohol use Z78.9 [facility] [address] [address] 07 Aug, 2017 Other chronic pain G89.29 [facility] [id number] [place] [address] Jul, Chronic urinary tract infection N39.0 [facility] [address] [place] [address] 07 Jul, 2017 Other chronic pain G89.29 [facility] [id number] [place] [address] Jun, [facility] [id number] [place] [address] Jun, [facility] [id number] [place] [address] Jun, Acute left-sided thoracic back pain M54.6 [facility] [id number] [place] [address] Jun, Cough R05 and Acute bilateral thoracic back pain M54.6 [facility] [id number] [place] [address] 15 Jun, 2017 Back pain, unspecified back location, unspecified back pain laterality, unspecified chronicity M54.9 and Left flank pain R10.9 [facility] [id number] [place] [address] 10 Jun, 2017 Other chronic pain G89.29 [facility] [facility] [id number] [place] [address] 03 Jun, 2017 Myalgia M79.1 [facility] [id number] [place] [address] 13 May, 2017 Other chronic pain G89.29 [facility] [id number] [place] [address] 07 May, 2017 Myalgia M79.1 and Fatigue due to exposure, subsequent encounter T73.2XXD [facility] [id number] [place] [address] 05 May, 2017 Fatigue due to exposure, subsequent encounter T73.2XXD [facility] [facility] [id number] [place] [address] 15 Apr, 2017 Other chronic pain G89.29 and Myalgia M79.1 [place] [address] [place] [address] 08 Apr, 2017 Closed nondisplaced fracture of phalanx of left great toe with routine healing, unspecified phalanx, subsequent encounter S92.405D ; Dysuria R30.0 ; Localized edema R60.0 and Arthralgia M25.50 [facility] [id number] [place] [address] Mar, Other chronic pain G89.29 and Myalgia M79.1 [facility] [id number] [place] [address] Mar, [facility] [id number] [place] [address] Mar, Dysuria R30.0 ; Other chronic pain G89.29 ; Scoliosis, unspecified scoliosis type, unspecified spinal region M41.9 and Chronic urinary tract infection N39.0 [facility] [id number] [place] [address] Feb, Arthralgia M25.50 and Myalgia M79.1 [facility] [id number] [place] [address] 13 Feb, 2017 [place] [id number] [place] [address] Feb, [facility] [id number] [place] [address] 06 Feb, 2017 Closed compression fracture of L4 lumbar vertebra with routine healing, subsequent encounter S32.040D ; Closed nondisplaced fracture of phalanx of left great toe with routine healing, unspecified phalanx, subsequent encounter S92.405D and Chronic urinary tract infection N39.0 [facility] [id number] [place] [address] Jan, Closed compression fracture of fourth lumbar vertebra, initial encounter S32.040A [facility] [address] [place] [address] Jan, Urinary tract infection, site not specified N39.0 [facility] [address] [place] [address] Jan, [facility] [address] [address] Jan, [facility] [id number] [place] [address] Jan, Arthralgia M25.50 and Myalgia M79.1 [place] [address] [place] [address] Jan, Need for prophylaxis against urinary tract infection Z29.8 and Urinary tract infection, site not specified N39.0 [facility] [place] [address] [place] [address] Dec, Urinary tract infection, site not specified N39.0 and Need for prophylaxis against urinary tract infection Z29.8 [facility] [address] [place] [address] Dec, Major depressive disorder, single episode, unspecified F32.9 ; Myalgia M79.1 ; Arthralgia M25.50 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 [place] [address] [address] Dec, Other chronic pain G89.29 and Dysuria R30.0 [facility] [address] [place] [address] Nov, USP 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 Z79.891 [facility] [address] [place] [address] Nov, Acute midline low back pain without sciatica M54.5 and USP 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 Z79.891 [facility] [address] [place] [address] Nov, [facility] [address] [address] October, [facility] [address] [place] [address] October, [facility] [address] [place] [address] Sep, Right leg pain M79.604 [facility] [id number] [place] [address] Sep, [facility] [address] [place] [address] Aug, Right leg pain M79.604 [facility] [address] [place] [address] Jul, [facility] [id number] [place] [address] Jul, Arthralgia M25.50 and Right leg pain M79.604 [facility] [address] [address] Jun, Arthralgia M25.50 [facility] [address] [place] [address] Jun, [facility] [address] [address] Jun, Right leg pain M79.604 [facility] [address], [place] [address] Jun, Right leg pain M79.604 [facility] [address], [place] [address] Jun, Abnormal mammogram of left breast R92.8 [facility] [address], [place] [address] May, Routine gynecological examination V72.31 ; Breast cancer screening Z12.39 ; Cervical cancer screening Z12.4 ; Colon cancer screening Z12.11 and Calculus of gallbladder without cholecystitis without obstruction K80.20 [place] [address] [address] May, Arthralgia M25.50 [place] [address] [address] Apr, Arthralgia M25.50 [place] [address] [address] 17 Apr, 2016 Screening, lipid Z13.220 [place] [address] [address] 14 Apr, 2016 Other chronic pain G89.29 ; Scoliosis, unspecified scoliosis type, unspecified spinal region M41.9 ; Right leg pain M79.604 ; Major depressive disorder, single episode, unspecified F32.9 ; Fatigue due to exposure, subsequent encounter T73.2XXD ; Dysthymia F34.1 and Screening, lipid Z13.220 [place] [address] [address] Apr, Arthralgia M25.50 [place] [address] [address] Mar, Dysthymia 300.4 [place] [address] [address] Mar, Arthralgia M25.50 [place] [facility] [id number] [place] [address] Feb, Arthralgia M25.50 [place] [address] [address] Jan, Arthralgia M25.50 [place] [id number] [place] [address] Dec, 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 [place] [facility] [id number] [place] [address] Dec, [facility] [address] [place] [address] Dec, Right leg pain M79.604 and Scoliosis, unspecified scoliosis type, unspecified spinal region M41.9 [facility] [address] [place] [address] Dec, Right leg pain M79.604 and Scoliosis, unspecified scoliosis type, unspecified spinal region M41.9 [facility] [id number] [place] [address] Dec, Arthralgia M25.50 [facility] [address] [place] [address] Nov, Arthralgia M25.50 [facility] [id number] [place] [address] October, Arthralgia M25.50 and Scoliosis, unspecified scoliosis type, unspecified spinal region M41.9 [facility] [id number] [place] [address] Sep, [facility] [id number] [place] [address] Aug, [facility] [id number] [place] [address] Aug, Arthralgia M25.50 ; Myalgia M79.1 and Scoliosis M41.9 [facility] [id number] [place] [address] Jul, Other chronic pain G89.29 [facility] [id number] [place] [address] Jul, Other chronic pain G89.29 [facility] [id number] [place] [address] Jul, Impingement syndrome of both shoulders M75.41 [place] [id number] [place] [address] Jun, [facility] [id number] [place] [address] Jun, [facility] [id number] [place] [address] Jun, Scoliosis (and kyphoscoliosis), idiopathic M41.20 and Other chronic pain G89.29 [facility] [id number] [place] [address] Jun, Upper respiratory tract infection, unspecified type 465.9 and Rhinorrhea J34.89 [place] [id number] [place] [address] May, [place] [address] [address] May, [place] [id number] [place] [address] Apr, Dysuria R30.0 ; Urinary tract infection, site not specified N39.0 and Hematuria, unspecified R31.9 [place] [id number] [place] [address] Apr, [place] [id number] [place] [address] Mar, Family history of early CAD Z82.49 [place] [id number] [place] [address] Mar, Other chronic pain G89.29 [place] [id number] [place] [address] Mar, Impingement syndrome of both shoulders M75.41 [place] [id number] [place] [address] Mar, Other chronic pain G89.29 ; Dysthymia F34.1 ; Family history of early CAD Z82.49 ; Dysuria R30.0 and Other specified disorders of Eustachian tube, right ear H69.81 [facility] [id number] [place] [address] Mar, [facility] [id number] [place] [address] Feb, [facility] [address] [address] Jan, [facility] [id number] [place] [address] Jan, Eustachian tube dysfunction 381.81 and Dysthymia 300.4 [facility] [id number] [place] [address] Dec, [facility] [address] [address] Nov, Impingement syndrome of both shoulders 726.2 [facility] [id number] [place] [address] Nov, [facility] [id number] [place] [address] Nov, [facility] [id number] [place] [address] Nov, Urgency of urination 788.63 [facility] [id number] [place] [address] October, [facility] [id number] [place] [address] October, [facility] [id number] [place] [address] Sep, [facility] [id number] [place] [address] Sep, [facility] [id number] [place] [address] Aug, [facility] [place] [facility] [address] [id number] [place] [address] Aug, [facility] [place] [facility] [address] [id number] [place] [address] Aug, [facility] [place] [facility] [address] [id number] [place] [address] Aug, [facility] [place] [facility] [address] [id number] [place] [address] Aug, [facility] [place] [facility] [address] [id number] [place] [address] Aug, [facility] [place] [facility] [address] [facility] [id number] [place] [address] Aug, [facility] [place] [facility] [address] [id number] [place] [address] Jul, [facility] [place] [facility] [address] [id number] [place] [address] Jul, [facility] [place] [facility] [address] [facility] [id number] [place] [address] Jul, [facility] [place] [facility] [address] [facility] [id number] [place] [address] Jul, [facility] [place] [facility] [address] [facility] [id number] [place] [address] Jul, [facility] [place] [facility] [address] [id number] [place] [address] Jul, [facility] [place] [facility] [address] [id number] [place] [address] Jun, [facility] [place] [facility] [address] [id number] [place] [address] Jun, [facility] [place] [facility] [address] [facility] [id number] [address] May, [facility] [place] [facility] [address] [id number] [place] [address] May, [facility] [place] [facility] [address] [id number] [place] [address] May, [facility] [place] [facility] [address] [id number] [place] [address] May, [facility] [place] [facility] [address] [id number] [place] [address] Mar, [facility] [place] [facility] [address] [id number] [place] [address] Mar, [facility] [place] [facility] [address] [id number] [place] [address] Feb, [facility] [place] [facility] [address] [id number] [place] [address] Feb, [facility] [place] [facility] [address] [id number] [place] [address] Jan, [facility] [place] [facility] [address] [id number] [place] [address] Jan, [facility] [place] [facility] [address] [id number] [place] [address] Jan, [facility] [place] [facility] [address] [id number] [place] [address] Jan, [facility] [place] [facility] [address] [id number] [place] [address] Jan, [facility] [place] [facility] [address] [id number] [place] [address] Nov, [facility] [place] [facility] [address] [id number] [place] [address] Nov, [facility] [place] [facility] [address] [id number] [place] [address] October, [facility] [place] [facility] [address] [id number] [place] [address] October, [facility] [address] [id number] [place] [address] October, [facility] [place] [facility] [address] [id number] [place] [address] October, [facility] [address] [id number] [place] [address] Sep, [facility] [place] [facility] [address] [id number] [place] [address] Aug, [facility] [address] [id number] [place] [address] Aug, [facility] [place] [facility] [address] [id number] [place] [address] Aug, [facility] [place] [facility] [address] [id number] [place] [address] Aug, [facility] [address] [id number] [place] [address] Jul, [facility] [place] [facility] [address] [id number] [place] [address] Jul, [facility] [address] [id number] [place] [address] Jun, [facility] [place] [facility] [address] [id number] [place] [address] Jun, [facility] [place] [facility] [address] [id number] [place] [address] Jun, [facility] [place] [facility] [address] [id number] [place] [address] Jun, [facility] [place] [facility] [address] [id number] [place] [address] Jun, [facility] [place] [facility] [address] [id number] [place] [address] Jun, [facility] [address] [id number] [place] [address] Mar, [facility] [place] [facility] [address] [id number] [place] [address] Mar, [facility] [place] [facility] [address] [id number] [place] [address] Feb, [facility] [place] [facility] [address] [id number] [place] [address] Feb, [facility] [place] [facility] [address] [id number] [place] [address] Feb, [facility] [place] [facility] [address] [id number] [place] [address] Jan, [facility] [place] [facility] [address] [id number] [place] [address] Jan, [facility] [place] [facility] [address] [id number] [place] [address] Dec, [facility] [place] [facility] [address] [id number] [place] [address] Nov, [facility] [place] [facility] [address] [id number] [place] [address] Sep, [facility] [place] [facility] [address] [id number] [place] [address] Aug, [facility] [place] [facility] [address] [id number] [address] Aug, [facility] [place] [facility] [address] [id number] [place] [address] Aug, [facility] [place] [facility] [address] [id number] [place] [address] Jul, [facility] [place] [facility] [address] [id number] [place] [address] Jul, [facility] [place] [facility] [address] [id number] [place] [address] Jul, [facility] [address] [id number] [place] [address] Jul, [facility] [address] [id number] [place] [address] Jul, [facility] [address] [id number] [place] [address] Apr, [facility] [address] [id number] [place] [address] Apr, [facility] [address] [id number] [place] [address] Jan, [facility] [address] [id number] [place] [address] Jan, [facility] [address] [id number] [place] [address] Dec, [facility] [address] [id number] [place] [address] Dec, [facility] [address] [id number] [place] [address] Dec, [facility] [address] [id number] [place] [address] Dec, [facility] [address] [id number] [place] [address] Dec, [facility] [address] [id number] [place] [address] October, [facility] [place] [facility] [address] [id number] [place] [address] Aug, [facility] [place] [facility] [address] [id number] [place] [address] Aug, [facility] [place] [facility] [address] [id number] [place] [address] Aug, [facility] [address] [id number] [address] Jul, [facility] [id number], [place] [address] May, [facility] [id number], [place] [address] Apr, [facility] [id number], [place] [address] May, [facility] [id number], [place] [address] May, [facility] [id number], [place] [address] May, [facility] [id number], [place] [address] Mar, [facility] [id number], [place] [address] Mar, [facility] [address] [id number], [place] [address] Aug, IMMUNIZATIONS No Known Immunizations SOCIAL HISTORY Never Assessed REASON FOR VISIT [facility] [place] PLAN OF CARE VITAL SIGNS MEDICATIONS Unknown Medications RESULTS No Results PROCEDURES No Known procedures INSTRUCTIONS MEDICATIONS ADMINISTERED No Known Medications MEDICAL (GENERAL) HISTORY Type Description Date Medical History chronic pain Medical History arthritis Surgical History Nephrectomy - age 3 Surgical History Appendectomy Hospitalization History surgery Hospitalization History childbirth x 3
--- OUTSIDE RECORDS SUMMARY | 2018-11-22 18:47 | XMS REPORT ---
Author Author Migration, Doctor Organization [facility] [place] [facility] Address Unknown Phone Unavailable Care Team Providers Care Map Mounter Name Role Phone Migration, Doctor Unavailable Unavailable PROBLEMS Type Condition ICD9-CM Code LOY22-UV Code Onset Dates Condition Status SNOMED Code Problem Other chronic pain G89.29 Active 05453567 Problem Arthralgia M25.50 Active 21704045 Problem Major depressive disorder, single episode, unspecified F32.9 Active 19889310 Problem Moderate episode of recurrent major depressive disorder F33.1 Active 199679494 Problem Dysthymia F34.1 Active 10386918 Problem Pansinusitis, unspecified chronicity J32.4 Active 541347479 Problem Rotator cuff syndrome of right shoulder M75.101 Active 862115857188182 Problem Acute constipation K59.00 Active 185163538 Problem Primary osteoarthritis of right knee M17.11 Active [id number] Problem 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 Active [id number] ALLERGIES No Information ENCOUNTERS Encounter Location Date Diagnosis [place] [address] [address] October, [facility] [address] [address] Sep, Pansinusitis, unspecified chronicity J32.4 and Cough R05 [facility] [address] [address] Sep, Arthralgia M25.50 and Moderate episode of recurrent major depressive disorder F33.1 [facility] [address] [address] Aug, Allergic dermatitis L23.9 ; Acute bronchitis, unspecified organism J20.9 and Urticaria L50.9 [place] [address] [address] Aug, [facility] [id number] [place] [address] Aug, Arthralgia M25.50 ; Moderate episode of recurrent major depressive disorder F33.1 ; Bronchitis J40 ; Dysfunction of right eustachian tube H69.81 and Long-term use of high-risk medication Z79.899 [facility] [address] [place] [id number] [place] [address] Aug, [facility] [address] [place] [id number] [place] [address] Jul, [facility] [address] [place] [id number] [place] [address] Jul, Moderate episode of recurrent major depressive disorder F33.1 ; Other chronic pain G89.29 and Scoliosis, unspecified scoliosis type, unspecified spinal region M41.9 [facility] [address] [place] [id number] [place] [address] Jul, [facility] [address] [place] [id number] [place] [address] Jun, [facility] [address] [place] [id number] [place] [address] May, Arthralgia of multiple joints M25.50 [facility] [address] [place] [id number] [place] [address] May, Rotator cuff syndrome of right shoulder M75.101 [facility] [address] [place] [id number] [place] [address] May, [facility] [address] [place] [id number] [place] [address] May, Arthralgia M25.50 [facility] [address] [place] [id number] [place] [address] May, [facility] [address] [place] [id number] [place] [address] May, Arthralgia M25.50 and Other chronic pain G89.29 [place] [address] [place] [id number] [place] [address] Apr, [place] [address] [place] [id number] [place] [address] Apr, [place] [address] [place] [id number] [place] [address] Apr, Arthralgia of multiple joints M25.50 [place] [address] [place] [id number] [place] [address] Apr, 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 [place] [address] [address] Apr, Other chronic pain G89.29 and Myalgia M79.1 [place] [address] [address] Apr, [place] [address] [place] [id number] [place] [address] 08 Apr, 2018 Arthralgia of multiple joints M25.50 and Primary osteoarthritis of right knee M17.11 [place] [address] [place] [id number] [place] [address] Apr, Acute constipation K59.00 ; Arthralgia M25.50 ; Dysuria R30.0 ; Other chronic pain G89.29 ; Pain in left knee M25.562 and Pain in right knee M25.561 [place] [address] [place] [id number] [place] [address] Mar, Other chronic pain G89.29 and Myalgia M79.1 [place] [address] [place] [id number] [place] [address] Feb, Trochanteric bursitis, right hip M70.61 ; Chondromalacia, right knee M94.261 and 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 [place] [address] [place] [id number] [place] [address] 18 Feb, 2018 [place] [address] [place] [id number] [place] [address] 14 Feb, 2018 Other chronic pain G89.29 and Myalgia M79.1 [place] [address] [place] [id number] [place] [address] 30 Jan, 2018 [place] [address] [place] [id number] [place] [address] Jan, Right hip pain M25.551 and Opioid use disorder, mild, in controlled environment F11.10 [place] [address] [place] [id number] [place] [address] Jan, Other chronic pain G89.29 and Myalgia M79.1 [place] [address] [place] [id number] [place] [address] 16 Jan, 2018 Urinary tract infection without hematuria, site unspecified N39.0 [place] [address] [place] [id number] [place] [address] 13 Jan, 2018 Therapeutic drug monitoring Z51.81 ; Scoliosis, unspecified scoliosis type, unspecified spinal region M41.9 ; Chronic prescription opiate use Z79.891 ; Dysthymia F34.1 ; Alcohol use Z78.9 and Frequent urinary tract infections N39.0 [place] [address] [place] [id number] [place] [address] Dec, Other chronic pain G89.29 and Myalgia M79.1 [place] [address] [place] [id number] [place] [address] Dec, Impacted cerumen, right ear H61.21 and Dysfunction of right eustachian tube H69.81 [place] [address] [place] [address] Nov, Myalgia M79.1 and Other chronic pain G89.29 [place] [address] [place] [id number] [place] [address] October, Other chronic pain G89.29 and Myalgia M79.1 [facility] [address] [place] [id number] [place] [address] Sep, Other chronic pain G89.29 [facility] [address] [place] [id number] [place] [address] Aug, Other chronic pain G89.29 [facility] [address] [place] [id number] [place] [address] Aug, Scoliosis (and kyphoscoliosis), idiopathic M41.20 [facility] [address] [place] [id number] [place] [address] Aug, [facility] [address] [place] [id number] [place] [address] Aug, Dysuria R30.0 ; Scoliosis, unspecified scoliosis type, unspecified spinal region M41.9 ; Encounter for therapeutic drug level monitoring Z51.81 and Alcohol use Z78.9 [facility] [address] [place] [id number] [place] [address] Aug, Other chronic pain G89.29 [facility] [address] [place] [id number] [place] [address] Jul, Chronic urinary tract infection N39.0 [facility] [address] [place] [id number] [place] [address] 07 Jul, 2017 Other chronic pain G89.29 [facility] [address] [place] [id number] [place] [address] Jun, [facility] [address] [place] [id number] [place] [address] Jun, [facility] [address] [place] [id number] [place] [address] Jun, Acute left-sided thoracic back pain M54.6 [facility] [address] [place] [id number] [place] [address] 18 Jun, 2017 Cough R05 and Acute bilateral thoracic back pain M54.[address] [facility] [address] [address] 15 Jun, 2017 Back pain, unspecified back location, unspecified back pain laterality, unspecified chronicity M54.9 and Left flank pain R10.[address] [address] 10 Jun, 2017 Other chronic pain G89.29 [place] [address] [address] 03 Jun, 2017 Myalgia M79.1 [place] [address] [address] 13 May, 2017 Other chronic pain G89.[address] [address] 07 May, 2017 Myalgia M79.1 and Fatigue due to exposure, subsequent encounter T73.2XXD [address] [address] 05 May, 2017 Fatigue due to exposure, subsequent encounter T73.2XXD [place] [address] [place] [id number] [place] [address] 15 Apr, 2017 Other chronic pain G89.29 and Myalgia M79.1 [place] [address] [address] 08 Apr, 2017 Closed nondisplaced fracture of phalanx of left great toe with routine healing, unspecified phalanx, subsequent encounter S92.405D ; Dysuria R30.0 ; Localized edema R60.0 and Arthralgia M25.50 [place] [id number] [place] [address] 18 Mar, 2017 Other chronic pain G89.29 and Myalgia M79.1 [place] [address] [address] Mar, [facility] [address] [place] [id number] [place] [address] Mar, Dysuria R30.0 ; Other chronic pain G89.29 ; Scoliosis, unspecified scoliosis type, unspecified spinal region M41.9 and Chronic urinary tract infection N39.0 [facility] [address] [place] [id number] [place] [address] Feb, Arthralgia M25.50 and Myalgia M79.1 [facility] [address] [place] [id number] [place] [address] Feb, [facility] [address] [place] [id number] [place] [address] Feb, [place] [address] [place] [id number] [place] [address] Feb, Closed compression fracture of L4 lumbar vertebra with routine healing, subsequent encounter S32.040D ; Closed nondisplaced fracture of phalanx of left great toe with routine healing, unspecified phalanx, subsequent encounter S92.405D and Chronic urinary tract infection N39.0 [facility] [id number] [place] [address] Jan, Closed compression fracture of fourth lumbar vertebra, initial encounter S32.040A [facility] [address] [place] [id number] [place] [address] Jan, Urinary tract infection, site not specified N39.0 [facility] [id number] [place] [address] Jan, [facility] [address] [place] [id number] [place] [address] Jan, [facility] [id number] [place] [address] Jan, Arthralgia M25.50 and Myalgia M79.1 [facility] [id number] [place] [address] Jan, Need for prophylaxis against urinary tract infection Z29.8 and Urinary tract infection, site not specified N39.0 [facility] [address] [place] [id number] [place] [address] Dec, Urinary tract infection, site not specified N39.0 and Need for prophylaxis against urinary tract infection Z29.8 [facility] [address] [place] [id number] [place] [address] Dec, Major depressive disorder, single episode, unspecified F32.9 ; Myalgia M79.1 ; Arthralgia M25.50 and long-term 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 Z79.891 [place] [address] [place] [id number] [place] [address] Dec, Other chronic pain G89.29 and Dysuria R30.0 [place] [address] [place] [id number] [place] [address] Nov, long-term 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 Z79.891 [place] [address] [place] [id number] [place] [address] Nov, Acute midline low back pain without sciatica M54.5 and long-term 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 Z79.891 [place] [address] [place] [address] Nov, [facility] [address] [place] [id number] [place] [address] October, [facility] [address] [place] [id number] [place] [address] October, [facility] [address] [place] [id number] [place] [address] Sep, Right leg pain M79.604 [facility] [address] [place] [address] Sep, [facility] [address] [place] [address] Aug, Right leg pain M79.604 [facility] [address] [place] [id number] [place] [address] Jul, [facility] [address] [place] [id number] [place] [address] Jul, Arthralgia M25.50 and Right leg pain M79.604 [facility] [address] [place] [id number] [place] [address] Jun, Arthralgia M25.50 [place] [address] [place] [id number] [place] [address] Jun, [place] [address] [place] [id number] [place] [address] Jun, Right leg pain M79.604 [place] [address] [place] [id number] [place] [address] Jun, Right leg pain M79.604 [place] [address] [place] [id number] [place] [address] Jun, Abnormal mammogram of left breast R92.8 [place] [address] [place] [id number] [place] [address] May, Routine gynecological examination V72.31 ; Breast cancer screening Z12.39 ; Cervical cancer screening Z12.4 ; Colon cancer screening Z12.11 and Calculus of gallbladder without cholecystitis without obstruction K80.20 [place] [address] [place] [address] May, Arthralgia M25.50 [place] [address] [place] [id number] [place] [address] Apr, Arthralgia M25.50 [place] [address] [place] [id number] [place] [address] Apr, Screening, lipid Z13.220 [facility] [address] [place] [id number] [place] [address] Apr, Other chronic pain G89.29 ; Scoliosis, unspecified scoliosis type, unspecified spinal region M41.9 ; Right leg pain M79.604 ; Major depressive disorder, single episode, unspecified F32.9 ; Fatigue due to exposure, subsequent encounter T73.2XXD ; Dysthymia F34.1 and Screening, lipid Z13.220 [facility] [address] [place] [id number] [place] [address] Apr, Arthralgia M25.50 [place] [address] [address] Mar, Dysthymia 300.4 [place] [address] [address] Mar, Arthralgia M25.50 [place] [address] [place] [id number] [place] [address] Feb, Arthralgia M25.50 [facility] [address] [address] Jan, Arthralgia M25.50 [facility] [address] [place] [id number] [place] [address] Dec, 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 [place] [address] [place] [id number] [place] [address] Dec, [facility] [address] [place] [id number] [place] [address] Dec, Right leg pain M79.604 and Scoliosis, unspecified scoliosis type, unspecified spinal region M41.9 [facility] [address] [place] [id number] [place] [address] Dec, Right leg pain M79.604 and Scoliosis, unspecified scoliosis type, unspecified spinal region M41.9 [facility] [address] [place] [address] Dec, Arthralgia M25.50 [facility] [address] [place] [id number] [place] [address] Nov, Arthralgia M25.50 [facility] [address] [place] [id number] [place] [address] October, Arthralgia M25.50 and Scoliosis, unspecified scoliosis type, unspecified spinal region M41.9 [facility] [address] [place] [id number] [place] [address] Sep, [place] [address] [place] [id number] [place] [address] Aug, [place] [address] [place] [id number] [place] [address] Aug, Arthralgia M25.50 ; Myalgia M79.1 and Scoliosis M41.9 [place] [address] [place] [id number] [place] [address] Jul, Other chronic pain G89.29 [place] [address] [place] [id number] [place] [address] Jul, Other chronic pain G89.29 [place] [address] [place] [address] Jul, Impingement syndrome of both shoulders M75.41 [facility] [address] [place] [address] Jun, [facility] [address] [place] [id number] [place] [address] Jun, [facility] [id number] [place] [address] Jun, Scoliosis (and kyphoscoliosis), idiopathic M41.20 and Other chronic pain G89.29 [facility] [address] [place] [id number] [place] [address] Jun, Upper respiratory tract infection, unspecified type 465.9 and Rhinorrhea J34.89 [facility] [address] [place] [id number] [place] [address] May, [place] [address] [place] [id number] [place] [address] May, [place] [address] [address] Apr, Dysuria R30.0 ; Urinary tract infection, site not specified N39.0 and Hematuria, unspecified R31.9 [place] [address] [place] [id number] [place] [address] Apr, [place] [address] [address] Mar, Family history of early CAD Z82.49 [place] [address] [address] Mar, Other chronic pain G89.29 [place] [address] [place] [id number] [place] [address] Mar, Impingement syndrome of both shoulders M75.41 [place] [address] [place] [id number] [place] [address] Mar, Other chronic pain G89.29 ; Dysthymia F34.1 ; Family history of early CAD Z82.49 ; Dysuria R30.0 and Other specified disorders of Eustachian tube, right ear H69.81 [place] [address] [place] [id number] [place] [address] Mar, [place] [address] [place] [id number] [place] [address] Feb, [place] [address] [place] [id number] [place] [address] Jan, [place] [address] [address] Jan, Eustachian tube dysfunction 381.81 and Dysthymia 300.4 [facility] [address] [place] [id number] [place] [address] Dec, [facility] [address] [place] [id number] [place] [address] Nov, Impingement syndrome of both shoulders 726.2 [facility] [address] [place] [id number] [place] [address] Nov, [facility] [address] [place] [id number] [place] [address] Nov, [facility] [address] [place] [id number] [place] [address] Nov, Urgency of urination 788.63 [facility] [address] [place] [id number] [place] [address] October, [facility] [id number] [place] [address] October, [facility] [address] [place] [id number] [place] [address] Sep, [facility] [address] [address] Sep, [facility] [address] [address] Aug, [facility] [address] [address] Aug, [facility] [address] [place] [id number] [place] [address] Aug, [facility] [address] [address] Aug, [facility] [id number] [place] [address] Aug, [facility] [place] [facility] [address] [id number] [place] [address] Aug, [facility] [place] [facility] [address] [id number] [place] [address] Aug, [facility] [place] [facility] [address] [facility] [id number] [place] [address] Jul, [facility] [place] [facility] [address] [id number] [place] [address] Jul, 2014 [facility] [place] [facility] [address] [id number] [place] [address] Jul, [facility] [place] [facility] [address] [facility] [id number] [place] [address] Jul, [facility] [place] [facility] [address] [facility] [id number] [place] [address] Jul, [facility] [place] [facility] [address] [facility] [id number] [place] [address] Jul, [facility] [place] [facility] [address] [facility] [id number] [place] [address] Jun, [facility] [place] [facility] [address] [facility] [id number] [place] [address] Jun, [facility] [place] [facility] [address] [facility] [id number] [place] [address] May, [facility] [place] [facility] [address] [facility] [id number] [place] [address] May, [facility] [place] [facility] [address] [facility] [id number] [place] [address] May, [facility] [place] [facility] [address] [facility] [id number] [place] [address] May, [facility] [place] [facility] [address] [facility] [id number] [place] [address] Mar, [facility] [place] [facility] [address] [id number] [place] [address] Mar, [facility] [place] [facility] [address] [id number] [place] [address] Feb, [facility] [place] [facility] [address] [id number] [place] [address] Feb, [facility] [place] [facility] [address] [id number] [place] [address] Jan, [facility] [place] [facility] [address] [id number] [place] [address] Jan, [facility] [place] [facility] [address] [id number] [place] [address] Jan, [facility] [place] [facility] [address] [id number] [place] [address] Jan, [facility] [place] [facility] [address] [id number] [place] [address] Jan, [facility] [place] [facility] [address] [id number] [place] [address] Nov, [facility] [place] [facility] [address] [id number] [place] [address] Nov, [facility] [place] [facility] [address] [id number] [place] [address] October, [facility] [place] [facility] [address] [id number] [place] [address] October, [facility] [place] [facility] [address] [id number] [place] [address] October, [facility] [place] [facility] [address] [id number] [place] [address] October, [facility] [place] [facility] [address] [id number] [place] [address] Sep, [facility] [place] [facility] [address] [id number] [place] [address] Aug, [facility] [place] [facility] [address] [id number] [place] [address] Aug, [facility] [place] [facility] [address] [id number] [place] [address] Aug, [facility] [place] [facility] [address] [id number] [place] [address] Aug, [facility] [place] [facility] [address] [id number] [place] [address] Jul, [facility] [place] [facility] [address] [id number] [place] [address] Jul, [facility] [place] [facility] [address] [id number] [place] [address] Jun, [facility] [place] [facility] [address] [id number] [place] [address] Jun, [facility] [place] [facility] [address] [id number] [place] [address] Jun, [facility] [place] [facility] [address] [id number] [place] [address] Jun, [facility] [place] [facility] [address] [id number] [place] [address] Jun, [facility] [place] [facility] [address] [id number] [address] Jun, [facility] [place] [facility] [address] [id number], [place] [address] Mar, [facility] [place] [facility] [address] [id number] [place] [address] Mar, [facility] [place] [facility] [address] [id number] [place] [address] Feb, [facility] [place] [facility] [address] [id number] [place] [address] Feb, [facility] [place] [facility] [address] [id number] [place] [address] Feb, [facility] [address] [id number] [place] [address] Jan, [facility] [address] [id number] [place] [address] Jan, [facility] [address] [id number] [place] [address] Dec, [facility] [address] [id number] [place] [address] Nov, [facility] [address] [id number] [place] [address] Sep, [facility] [address] [id number] [place] [address] Aug, [facility] [address] [id number] [place] [address] Aug, [facility] [address] [id number] [place] [address] Aug, [facility] [address] [id number] [place] [address] Jul, [facility] [address] [facility] [id number] [place] [address] Jul, [facility] [address] [id number] [place] [address] Jul, [facility] [address] [id number] [place] [address] Jul, [facility] [place] [facility] [address] [id number] [place] [address] Jul, [facility] [address] [facility] [id number] [place] [address] Apr, [facility] [address] [id number] [place] [address] Apr, [facility] [place] [facility] [address] [id number] [place] [address] Jan, [facility] [place] [facility] [address] [id number] [place] [address] Jan, [facility] [place] [facility] [address] [id number] [place] [address] Dec, [facility] [place] [facility] [address] [id number] [place] [address] Dec, [facility] [place] [facility] [address] [id number] [place] [address] Dec, [facility] [place] [facility] [address] [id number] [place] [address] Dec, [facility] [place] [facility] [address] [id number] [place] [address] Dec, [facility] [place] [facility] [address] [id number] [place] [address] October, [facility] [place] [facility] [address] [id number] [place] [address] Aug, [facility] [place] [facility] [address] [id number] [place] [address] Aug, [facility] [place] [facility] [address] [id number] [place] [address] Aug, [facility] [place] [facility] [address] [id number] [place] [address] Jul, [facility] [place] [facility] [address] [id number] [place] [address] May, [facility] [place] [facility] [address] [id number] [place] [address] Apr, [facility] [place] [facility] [address] [id number] [place] [address] May, [facility] [place] [facility] [address] [facility] [id number] [place] [address] May, [facility] [address] [facility] [id number] [address] May, [facility] [address] [facility] [id number], [place] [address] Mar, [facility] [address] [facility] [id number], [place] [address] Mar, [facility] [address] [facility] [id number], [place] [address] Aug, IMMUNIZATIONS No Known Immunizations SOCIAL HISTORY Never Assessed REASON FOR VISIT EMR-[facility] [place] PLAN OF CARE VITAL SIGNS MEDICATIONS Unknown Medications RESULTS No Results PROCEDURES No Known procedures INSTRUCTIONS MEDICATIONS ADMINISTERED No Known Medications MEDICAL (GENERAL) HISTORY Type Description Date Medical History chronic pain Medical History arthritis Surgical History Nephrectomy - age 3 Surgical History Appendectomy Hospitalization History surgery Hospitalization History childbirth x 3
--- OUTSIDE RECORDS SUMMARY | 2018-11-22 18:48 | XMS REPORT ---
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 [id number] Problem Moderate episode of recurrent major depressive disorder F33.1 Active 057607230 Problem Major depressive disorder, single episode, unspecified F32.9 Active 36095625 Problem Rotator cuff syndrome of right shoulder M75.101 Active 025434720939902 Problem Acute constipation K59.00 Active 961324385 Problem Primary osteoarthritis of right knee M17.11 Active [id number] ALLERGIES No Information ENCOUNTERS Encounter Location Date Diagnosis [facility] [id number] [place] [address] Aug, [place] [id number] [place] [address] Aug, [facility] [id number] [place] [address] Jul, [facility] [id number] [place] [address] 04 Jul, 2018 Moderate episode of recurrent major depressive disorder F33.1 ; Other chronic pain G89.29 and Scoliosis, unspecified scoliosis type, unspecified spinal region M41.9 [facility] [id number] [place] [address] Jul, [facility] [id number] [place] [address] Jun, [facility] [address] [place] [address] May, Arthralgia of multiple joints M25.50 [facility] [id number] [place] [address] May, Rotator cuff syndrome of right shoulder M75.101 [facility] [address] [place] [address] May, [facility] [id number] [place] [address] May, Arthralgia M25.50 [facility] [id number] [place] [address] May, [facility] [id number] [place] [address] May, Arthralgia M25.50 and Other chronic pain G89.29 [facility] [id number] [place] [address] Apr, [facility] [id number] [place] [address] Apr, [facility] [id number] [place] [address] Apr, 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 [facility] [id number] [place] [address] Apr, Arthralgia of multiple joints M25.50 [facility] [address] [place] [address] Apr, Other chronic pain G89.29 and Myalgia M79.1 [facility] [id number] [place] [address] Apr, [facility] [address] [place] [address] Apr, Arthralgia of multiple joints M25.50 and Primary osteoarthritis of right knee M17.11 [facility] [id number] [place] [address] 07 Apr, 2018 Acute constipation K59.00 ; Arthralgia M25.50 ; Dysuria R30.0 ; Other chronic pain G89.29 ; Pain in left knee M25.562 and Pain in right knee M25.561 [facility] [address] [address] 16 Mar, 2018 Other chronic pain G89.29 and Myalgia M79.1 [place] [address] [address] 20 Feb, 2018 Trochanteric bursitis, right hip M70.61 ; Chondromalacia, right knee M94.261 and 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 [place] [address] [address] 18 Feb, 2018 [place] [address] [address] 14 Feb, 2018 Other chronic pain G89.29 and Myalgia M79.1 [place] [address] [address] 30 Jan, 2018 [place] [id number] [place] [address] Jan, Right hip pain M25.551 and Opioid use disorder, mild, in controlled environment F11.10 [place] [id number] [place] [address] Jan, Other chronic pain G89.29 and Myalgia M79.1 [place] [address] [address] 16 Jan, 2018 Urinary tract infection without hematuria, site unspecified N39.0 [place] [address] [address] 13 Jan, 2018 Therapeutic drug monitoring Z51.81 ; Scoliosis, unspecified scoliosis type, unspecified spinal region M41.9 ; Chronic prescription opiate use Z79.891 ; Dysthymia F34.1 ; Alcohol use Z78.9 and Frequent urinary tract infections N39.0 [place] [id number] [place] [address] Dec, Other chronic pain G89.29 and Myalgia M79.1 [place] [address] [address] Dec, Impacted cerumen, right ear H61.21 and Dysfunction of right eustachian tube H69.81 [place] [address] [address] Nov, Myalgia M79.1 and Other chronic pain G89.29 [place] [address] [address] October, Other chronic pain G89.29 and Myalgia M79.1 [place] [address] [address] Sep, Other chronic pain G89.29 [place] [address] [address] Aug, Other chronic pain G89.29 [place] [address] [address] Aug, Scoliosis (and kyphoscoliosis), idiopathic M41.20 [facility] [id number] [place] [address] Aug, [place] [address] [address] Aug, Dysuria R30.0 ; Scoliosis, unspecified scoliosis type, unspecified spinal region M41.9 ; Encounter for therapeutic drug level monitoring Z51.81 and Alcohol use Z78.9 [place] [address] [address] Aug, Other chronic pain G89.29 [facility] [address] [place] [address] Jul, Chronic urinary tract infection N39.0 [facility] [id number] [place] [address] 07 Jul, 2017 Other chronic pain G89.29 [facility] [id number] [place] [address] Jun, [place] [id number] [place] [address] Jun, [place] [id number] [place] [address] Jun, Acute left-sided thoracic back pain M54.6 [facility] [id number] [place] [address] Jun, Cough R05 and Acute bilateral thoracic back pain M54.6 [facility] [id number] [place] [address] 15 Jun, 2017 Back pain, unspecified back location, unspecified back pain laterality, unspecified chronicity M54.9 and Left flank pain R10.9 [place] [id number] [place] [address] Jun, Other chronic pain G89.29 [place] [id number] [place] [address] Jun, Myalgia M79.1 [place] [id number] [place] [address] May, Other chronic pain G89.29 [place] [id number] [place] [address] May, Myalgia M79.1 and Fatigue due to exposure, subsequent encounter T73.2XXD [place] [id number] [place] [address] May, Fatigue due to exposure, subsequent encounter T73.2XXD [place] [id number] [place] [address] Apr, Other chronic pain G89.29 and Myalgia M79.1 [place] [id number] [place] [address] Apr, Closed nondisplaced fracture of phalanx of left great toe with routine healing, unspecified phalanx, subsequent encounter S92.405D ; Dysuria R30.0 ; Localized edema R60.0 and Arthralgia M25.50 [place] [id number] [place] [address] Mar, Other chronic pain G89.29 and Myalgia M79.1 [place] [id number] [place] [address] Mar, [place] [id number] [place] [address] Mar, Dysuria R30.0 ; Other chronic pain G89.29 ; Scoliosis, unspecified scoliosis type, unspecified spinal region M41.9 and Chronic urinary tract infection N39.0 [place] [id number] [place] [address] Feb, Arthralgia M25.50 and Myalgia M79.1 [place] [id number] [place] [address] Feb, [place] [id number] [place] [address] Feb, [place] [id number] [place] [address] 06 Feb, 2017 Closed compression fracture of L4 lumbar vertebra with routine healing, subsequent encounter S32.040D ; Closed nondisplaced fracture of phalanx of left great toe with routine healing, unspecified phalanx, subsequent encounter S92.405D and Chronic urinary tract infection N39.0 [facility] [address] [address] Jan, Closed compression fracture of fourth lumbar vertebra, initial encounter S32.040A [facility] [address] [address] Jan, Urinary tract infection, site not specified N39.0 [facility] [id number] [place] [address] Jan, [facility] [id number] [address] Jan, [facility] [address] [place] [address] Jan, Arthralgia M25.50 and Myalgia M79.1 [facility] [address] [place] [address] Jan, Need for prophylaxis against urinary tract infection Z29.8 and Urinary tract infection, site not specified N39.0 [facility] [address] [place] [address] Dec, Urinary tract infection, site not specified N39.0 and Need for prophylaxis against urinary tract infection Z29.8 [facility] [address] [address] Dec, Major depressive disorder, single episode, unspecified F32.9 ; Myalgia M79.1 ; 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.50 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 [facility] [id number] [address] Dec, Other chronic pain G89.29 and Dysuria R30.0 [facility] [id number] [address] Nov, [employer] 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 Z79.891 [facility] [address] [place] [address] Nov, Acute midline low back pain without sciatica M54.5 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 [facility] [id number] [place] [address] Nov, [facility] [id number] [place] [address] October, [facility] [id number] [place] [address] October, [facility] [id number] [place] [address] Sep, Right leg pain M79.604 [facility] [id number] [place] [address] Sep, [facility] [id number] [place] [address] Aug, Right leg pain M79.604 [facility] [id number] [place] [address] Jul, [facility] [id number] [place] [address] Jul, Arthralgia M25.50 and Right leg pain M79.604 [facility] [id number] [place] [address] Jun, Arthralgia M25.50 [facility] [id number] [place] [address] Jun, [facility] [id number] [place] [address] Jun, Right leg pain M79.604 [facility] [id number] [place] [address] Jun, Right leg pain M79.604 [facility] [id number] [place] [address] Jun, Abnormal mammogram of left breast R92.8 [place] [address] [address] May, Routine gynecological examination V72.31 ; Breast cancer screening Z12.39 ; Cervical cancer screening Z12.4 ; Colon cancer screening Z12.11 and Calculus of gallbladder without cholecystitis without obstruction K80.20 [place] [address] [address] May, Arthralgia M25.50 [place] [address] [address] Apr, Arthralgia M25.50 [place] [address] [address] Apr, Screening, lipid Z13.[address] [address] 14 Apr, 2016 Other chronic pain G89.29 ; Scoliosis, unspecified scoliosis type, unspecified spinal region M41.9 ; Right leg pain M79.604 ; Major depressive disorder, single episode, unspecified F32.9 ; Fatigue due to exposure, subsequent encounter T73.2XXD ; Dysthymia F34.1 and Screening, lipid Z13.220 [place] [address] [address] Apr, Arthralgia M25.50 [place] [address] [address] Mar, Dysthymia 300.4 [place] [address] [address] Mar, Arthralgia M25.50 [place] [id number] [place] [address] 08 Feb, 2016 Arthralgia M25.50 [place] [address] [address] Jan, Arthralgia M25.50 [facility] [address] [place] [address] Dec, 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 [facility] [address] [place] [address] Dec, [facility] [id number] [place] [address] Dec, Right leg pain M79.604 and Scoliosis, unspecified scoliosis type, unspecified spinal region M41.9 [facility] [id number] [place] [address] Dec, Right leg pain M79.604 and Scoliosis, unspecified scoliosis type, unspecified spinal region M41.9 [facility] [id number] [place] [address] Dec, Arthralgia M25.50 [facility] [id number] [place] [address] Nov, Arthralgia M25.50 [facility] [id number] [place] [address] October, Arthralgia M25.50 and Scoliosis, unspecified scoliosis type, unspecified spinal region M41.9 [facility] [id number] [place] [address] Sep, [facility] [id number] [place] [address] Aug, [facility] [id number] [place] [address] Aug, Arthralgia M25.50 ; Myalgia M79.1 and Scoliosis M41.9 [facility] [address] [place] [address] Jul, Other chronic pain G89.29 [facility] [address] [place] [address] Jul, Other chronic pain G89.29 [facility] [id number] [place] [address] 11 Jul, 2015 Impingement syndrome of both shoulders M75.41 [facility] [id number] [place] [address] Jun, [facility] [id number] [place] [address] Jun, [facility] [address] [address] Jun, Scoliosis (and kyphoscoliosis), idiopathic M41.20 and Other chronic pain G89.29 [facility] [id number] [place] [address] Jun, Upper respiratory tract infection, unspecified type 465.9 and Rhinorrhea J34.89 [facility] [id number] [place] [address] May, [place] [id number] [place] [address] May, [place] [id number] [place] [address] Apr, Dysuria R30.0 ; Urinary tract infection, site not specified N39.0 and Hematuria, unspecified R31.9 [facility] [id number] [place] [address] Apr, [facility] [address] [address] 16 Mar, 2015 Family history of early CAD Z82.49 [place] [id number] [place] [address] 15 Mar, 2015 Other chronic pain G89.29 [facility] [address] [place] [address] Mar, Impingement syndrome of both shoulders M75.41 [facility] [address] [address] Mar, Other chronic pain G89.29 ; Dysthymia F34.1 ; Family history of early CAD Z82.49 ; Dysuria R30.0 and Other specified disorders of Eustachian tube, right ear H69.81 [facility] [address] [address] Mar, [facility] [address] [address] Feb, [facility] [address] [address] Jan, [place] [address] [address] Jan, Eustachian tube dysfunction 381.81 and Dysthymia 300.4 [facility] [address] [address] Dec, [facility] [address] [address] Nov, Impingement syndrome of both shoulders 726.2 [place] [id number] [place] [address] Nov, [facility] [address] [address] Nov, [facility] [id number] [place] [address] Nov, Urgency of urination 788.63 [facility] [address] [address] October, [facility] [id number] [place] [address] October, [facility] [place] [facility] [address] [id number] [place] [address] 14 Sep, 2014 [facility] [place] [facility] [address] [id number] [place] [address] Sep, [facility] [place] [facility] [address] [id number] [place] [address] Aug, [facility] [place] [facility] [address] [id number] [place] [address] Aug, [facility] [place] [facility] [address] [id number] [place] [address] Aug, [facility] [place] [facility] [address] [id number] [place] [address] Aug, [facility] [place] [facility] [address] [facility] [id number] [place] [address] Aug, [facility] [place] [facility] [address] [id number] [place] [address] Aug, [facility] [place] [facility] [address] [id number] [place] [address] Aug, [facility] [place] [facility] [address] [id number] [place] [address] Jul, [facility] [place] [facility] [address] [facility] [id number] [place] [address] Jul, [facility] [place] [facility] [address] [id number] [address] Jul, 2014 [facility] [place] [facility] [address] [id number] [place] [address] Jul, [facility] [place] [facility] [address] [id number] [place] [address] Jul, [facility] [place] [facility] [address] [facility] [id number] [place] [address] Jul, 2014 [facility] [place] [facility] [address] [facility] [id number] [address] Jun, [facility] [place] [facility] [address] [id number] [place] [address] Jun, [facility] [place] [facility] [address] [id number] [place] [address] May, [facility] [place] [facility] [address] [facility] [id number] [place] [address] May, [facility] [place] [facility] [address] [id number] [place] [address] May, [facility] [place] [facility] [address] [facility] [id number] [place] [address] May, [facility] [place] [facility] [address] [facility] [id number] [place] [address] Mar, [facility] [place] [facility] [address] [facility] [id number] [place] [address] Mar, [facility] [place] [facility] [address] [id number] [place] [address] Feb, [facility] [place] [facility] [address] [facility] [id number] [place] [address] Feb, [facility] [place] [facility] [address] [facility] [id number] [place] [address] Jan, [facility] [place] [facility] [address] [id number] [place] [address] Jan, [facility] [place] [facility] [address] [id number], [place] [address] Jan, [facility] [place] [facility] [address] [id number] [place] [address] Jan, [facility] [place] [facility] [address] [facility] [id number] [place] [address] Jan, [facility] [place] [facility] [address] [facility] [id number] [place] [address] Nov, [facility] [place] [facility] [address] [id number] [place] [address] Nov, [facility] [place] [facility] [address] [id number] [place] [address] October, [facility] [place] [facility] [address] [id number] [place] [address] October, [facility] [place] [facility] [address] [id number] [place] [address] October, [facility] [place] [facility] [address] [id number] [place] [address] October, [facility] [place] [facility] [address] [id number] [place] [address] Sep, [facility] [place] [facility] [address] [id number] [place] [address] Aug, [facility] [place] [facility] [address] [id number] [place] [address] Aug, [facility] [place] [facility] [address] [id number] [place] [address] Aug, [facility] [place] [facility] [address] [id number] [place] [address] Aug, [facility] [place] [facility] [address] [id number] [place] [address] Jul, [facility] [place] [facility] [address] [id number] [place] [address] Jul, [facility] [place] [facility] [address] [id number] [place] [address] Jun, [facility] [place] [facility] [address] [id number] [place] [address] Jun, [facility] [place] [facility] [address] [id number] [place] [address] Jun, [facility] [place] [facility] [address] [id number] [place] [address] Jun, [facility] [place] [facility] [address] [id number] [place] [address] Jun, [facility] [place] [facility] [address] [id number] [place] [address] Jun, [facility] [place] [facility] [address] [id number] [place] [address] Mar, [facility] [place] [facility] [address] [id number] [place] [address] Mar, [facility] [place] [facility] [address] [id number] [place] [address] Feb, [facility] [place] [facility] [address] [id number] [place] [address] Feb, [facility] [place] [facility] [address] [id number] [place] [address] Feb, [facility] [place] [facility] [address] [id number] [place] [address] Jan, [facility] [place] [facility] [address] [id number] [place] [address] Jan, [facility] [place] [facility] [address] [id number] [place] [address] Dec, [facility] [place] [facility] [address] [id number], [place] [address] Nov, [facility] [place] [facility] [address] [id number], [place] [address] Sep, [facility] [place] [facility] [address] [id number] [place] [address] Aug, [facility] [place] [facility] [address] [id number] [place] [address] Aug, [facility] [facility] [address] [id number] [place] [address] Aug, [facility] [place] [facility] [address] [id number] [place] [address] Jul, [facility] [address] [id number] [place] [address] Jul, [facility] [place] [facility] [address] [id number] [place] [address] Jul, [facility] [place] [facility] [address] [id number] [place] [address] Jul, [facility] [place] [facility] [address] [id number] [place] [address] Jul, [facility] [place] [facility] [address] [id number] [place] [address] Apr, [facility] [address] [id number] [place] [address] Apr, [facility] [address] [id number] [place] [address] Jan, [facility] [address] [id number] [place] [address] Jan, [facility] [place] [facility] [address] [id number] [place] [address] Dec, [facility] [place] [facility] [address] [id number] [place] [address] Dec, [facility] [address] [id number] [place] [address] Dec, [facility] [address] [id number] [place] [address] Dec, [facility] [place] [facility] [address] [id number] [place] [address] Dec, [facility] [facility] [address] [id number] [place] [address] October, [facility] [address] [id number] [place] [address] 15 Aug, 2011 [facility] [id number] [address] Aug, [facility] [address] [place] [address] Aug, [facility] [id number] [place] [address] Jul, [facility] [address] [place] [address] May, [facility] [address] [place] [address] Apr, [facility] [id number] [place] [address] May, [facility] [address] [place] [address] May, [facility] [address] [place] [address] May, [facility] [address] [place] [address] Mar, [facility] [address] [place] [address] Mar, [facility] [id number] [address] Aug, IMMUNIZATIONS No Known Immunizations SOCIAL HISTORY Never Assessed REASON FOR VISIT [facility] [place] PLAN OF CARE VITAL SIGNS MEDICATIONS Unknown Medications RESULTS No Results PROCEDURES No Known procedures INSTRUCTIONS MEDICATIONS ADMINISTERED No Known Medications MEDICAL (GENERAL) HISTORY Type Description Date Medical History chronic pain Medical History arthritis Surgical History Nephrectomy - age 3 Surgical History Appendectomy Hospitalization History surgery Hospitalization History childbirth x 3
[2018-11-22] MEDS ORDERED: ONDANSETRON 4 MG/2 ML (SDV) Z0FRAN IV PRN (19:00)
--- NOTE | 2018-11-22 19:03 | Consultation (Surgery) ---
History of Present Illness History of Present Illness Patient Consulted On(barry/time) 11/22/18 18:58 Time Seen by Provider: 16:30 History of Present Illness Surgery asked to consult regarding PSBO. HPI per ED: Pt c/o abdominal pain that began yesterday. Pt reports, "intestines are twisted or I have IBS." Pt complains stomach feels "big and hard". Pt c/o pain is more concentrated on RLQ, however now radiating to both sides to the ribs. Pt reports last "normal" BM was yesterday morning and pt had two episode of diarrhea last night. Pt c/o in termittent nausea. Pt has had appendix removed, but has gallbladder To ER with diffuse abdominal pain that began yesterday, states that she was seen here before and told that she had either "twisted intestines or irritable bowel". Diarrhea 2 last night, nausea currently. No fevers. Timing/Duration: 1-2 Days Severity/Quality: Moderate, Cramping Location: Generalized Abdomen Radiation: No Radiation Activities at Onset: None When I spoke to pt her first question was how long she would have to be here. She stated that last time this happened she came in to ER, heard about surgery and left AMA. She stated it took about 3 days for her to feel better that time. She thinks this time might be worse. She states she normally has constipation. She did vomit last night. Rating her pain as 8 out of 10. Allergies and Home Medications Allergies Coded Allergies: Sulfa (Sulfonamide Antibiotics) (Unverified Allergy, Unknown, 11/13/13) aspirin (Unverified Allergy, Unknown, 11/13/13) Home Medications Docusate Sodium 100 Mg Capsule, 100 MG PO DAILY PRN for CONSTIPATION, (Reported) NEEDED FOR CONSTIPATION Gabapentin 300 Mg Capsule, 600 MG PO TID, (Reported) TAKES 2 (300MG) CAPSULES Hydrocodone/Acetaminophen 1 Each Tablet, 1 EACH PO Q4H PRN for PAIN-MODERATE TO SEVERE Prescribed by: MAGDA OCONNOR on 02/22/172205 Piroxicam 10 Mg Capsule, 10 MG PO BID, (Reported) Patient Home Medication List Home Medication List Reviewed: Yes Past Fuasktg-Etoacr-Arleij Hx Patient Social History Alcohol Use: Denies Use Recreational Drug Use: No Smoking Status: Current Everyday Smoker Type Used: Cigarettes 2nd Hand Smoke Exposure: Yes Recent Foreign Travel: No Contact w/Someone Who Travel: No Recent Infectious Disease Expo: No Recent Hopitalizations: No Immunizations Up To Date Tetanus Booster (TDap): Unknown Date of Influenza Vaccine: Mar 26, 2012 Surgeries History of Surgeries: Yes Surgeries: Section, Nephrectomy Respiratory History of Respiratory Disorde: No Cardiovascular History of Cardiac Disorders: No Neurological History of Neurological Disord: No 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 : 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 Genitourinary Genitourinary Disorders: Kidney Infection Gastrointestinal History of Gastrointestinal Di: No Musculoskeletal History of Musculoskeletal Dis: Yes (RESTLESS LEG SYNDROME) Musculoskeletal Disorders: Arthritis Endocrine History of Endocrine Disorders: No Cancer 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) Cancer: Kidney Psychosocial History of Psychiatric Problem: No Behavioral Health Disorders: Anxiety Integumentary History of Skin or Integumenta: No Blood Transfusions History of Blood Disorders: No Family Medical History Significant Family History: Heart Disease (mother and father), Diabetes Review of Systems-General Constitutional: No diaphoresis; malaise, weakness EENTM: No blurred vision, No double vision, No mouth pain, No mouth swelling, No epistaxis Respiratory: No cough, No dyspnea on exertion, No hemoptysis Cardiovascular: No chest pain, No edema, No palpitations Gastrointestinal: abdominal pain, loss of appetite; No melena; nausea, vomiting Genitourinary: No dysuria, No frequency, No hematuria Musculoskeletal: joint pain, joint swelling, muscle pain, muscle stiffness Skin: No change in color, No change in hair/nails Psychiatric/Neurological: Anxiety; Denies Depressed, Denies Seizure, Denies Tremors Other pt denies abnormal bleeding or bruising, no heat or cold intolerance Physical Exam-General Problems Physical Exam Vital Signs Vital Signs - First Documented 11/22/18 14:50 Temp 96.0 Pulse 76 Resp 22 B/P (MAP) 116/86 (96) Pulse Ox 98 O2 Delivery Room Air Capillary Refill : Less Than 3 Seconds General Appearance: WD/WN, mild distress Eyes: Bilateral Eye PERRL, Bilateral Eye EOMI HEENT: pharynx normal; No scleral icterus (R), No scleral icterus (L); other (NGT in place) Neck: non-tender, full range of motion, supple, normal inspection Respiratory: chest non-tender, lungs clear, normal breath sounds, no respiratory distress, no accessory muscle use Cardiovascular: regular rate, rhythm, no edema, no murmur Gastrointestinal: no organomegaly, abnormal bowel sounds, distended, tenderness, hernia (umbilical hernia) Back: no CVA tenderness, no vertebral tenderness Extremities: normal range of motion, non-tender, normal inspection, no pedal edema, no calf tenderness, normal capillary refill 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, alert, normal mood/affect, oriented x 3 Skin: normal color, warm/dry Lymphatic: no adenopathy (neck, axilla or groin) Data Review Labs Laboratory Tests 11/22/18 15:07: White Blood Count 11.9H, Red Blood Count 4.06L, Hemoglobin 12.8, Hematocrit 37, Mean Corpuscular Volume 91, Mean Corpuscular Hemoglobin 32, Mean Corpuscular Hemoglobin Concent 35, Red Cell Distribution Width 14.3, Platelet Count 279, Mean Platelet Volume 9.9, Neutrophils (%) (Auto) 78H, Lymphocytes (%) (Auto) 8L, Monocytes (%) (Auto) 13H, Eosinophils (%) (Auto) 1, Basophils (%) (Auto) 0, Neutrophils # (Auto) 9.3H, Lymphocytes # (Auto) 0.9L, Monocytes # (Auto) 1.6H, Eosinophils # (Auto) 0.1, Basophils # (Auto) 0.0, Neutrophils % (Manual) 78, Lymphocytes % (Manual) 4, Monocytes % (Manual) 13, Eosinophils % (Manual) 3, Basophils % (Manual) 0, Band Neutrophils 2, Blood Morphology Comment NORMAL, Sodium Level 136, Potassium Level 3.8, Chloride Level 104, Carbon Dioxide Level 21, Anion Gap 11, Blood Urea Nitrogen 18, Creatinine 0.97, Estimat Glomerular Filtration Rate 60, BUN/Creatinine Ratio 19, Glucose Level 111H, Calcium Level 9.1, Corrected Calcium 8.9, Total Bilirubin 0.5, Aspartate Amino Transf (AST/SGOT) 29, Alanine Aminotransferase (ALT/SGPT) 13, Alkaline Phosphatase 112, Total Protein 7.1, Albumin 4.3, Lipase 14 11/22/18 16:34: Urine Color YELLOW, Urine Clarity CLEAR, Urine pH 5, Urine Specific [place] 1.015L, Urine Protein NEGATIVE, Urine Glucose (UA) NEGATIVE, Urine Ketones NEGATIVE, Urine Nitrite NEGATIVE, Urine Bilirubin NEGATIVE, Urine Urobilinogen NORMAL, Urine Leukocyte Esterase NEGATIVE, Urine RBC (Auto) 1+H, Urine RBC 0-2, Urine WBC NONE, Urine Squamous Epithelial Cells 10-25H, Urine Crystals NONE, Urine Bacteria TRACE, Urine Casts NONE, Urine Mucus NEGATIVE, Urine Culture Indicated NO Assessment/Plan Assessment/Plan Assessment/Plan PSBO Plan is admit with IV fluids, NPO, NGT to LIWS, pain control, anti-emetics and recheck labs in am. I had long talk with pt regarding plan for hospital course and reasons why she would need surgery. I did stress that my job is first to try and not do surgery and allow the PSBO to resolve on its own. She may need a SBFT if she is not improving. I told her we were looking for signs of improvement; abdominal distention improving, pain improving, normal WBC and either flatus or BM. Unf ortunately, I don't know how long this will take and told her she can leave AMA anytime she wants. All questions answered to her satisfaction. Clinical Quality Measures DVT/VTE Risk/Contraindication: Risk Factor Score Per Nursin RFS Level Per Nursing on Admit: 2=Moderate JOSE RAWLS DO November 22, 2018 19:03
--- OUTSIDE RECORDS SUMMARY | 2018-11-22 19:10 | XMS REPORT ---
Author Author CHUY NGUYEN Organization 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 [id number] [address] Aug, [facility] [id number] [place] [address] Jul, [facility] [address] [address] Jun, [facility] [id number] [address] May, [facility] [address] [address] May, [facility] [id number] [address] May, Arthralgia M25.50 [facility] [address] [address] May, [facility] [id number] [address] May, Arthralgia M25.50 and Other chronic pain G89.29 [place] [address] [address] Apr, [place] [address] [address] Apr, [place] [address] [address] Apr, Baguh's neuroma of right foot G57.61 [place] [address] [address] Apr, Arthralgia of multiple joints M25.50 [place] [address] [address] Apr, Other chronic pain G89.29 and Myalgia M79.1 [place] [address] [address] Apr, [place] [address] [address] 08 Apr, 2018 Arthralgia of multiple joints M25.50 and Primary osteoarthritis of right knee M17.11 [place] [id number] [address] 07 Apr, 2018 Acute constipation K59.00 ; Arthralgia M25.50 ; Dysuria R30.0 ; Other chronic pain G89.29 ; Pain in left knee M25.562 and Pain in right knee M25.561 [place] [id number] [address] Mar, Other chronic pain G89.29 and Myalgia M79.1 [place] [id number] [address] Feb, Trochanteric bursitis, right hip M70.61 ; Chondromalacia, right knee M94.261 and 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 [place] [id number] [address] 18 Feb, 2018 [place] [address] [address] 14 Feb, 2018 Other chronic pain G89.29 and Myalgia M79.1 [place] [address] [address] 30 Jan, [address] [address] Jan, Right hip pain M25.551 and Opioid use disorder, mild, in controlled environment F11.[address] [address] Jan, Other chronic pain G89.29 and Myalgia M79.[address] [address] 16 Jan, 2018 Urinary tract infection without hematuria, site unspecified N39.[address] [address] Jan, Therapeutic drug monitoring Z51.81 ; Scoliosis, unspecified scoliosis type, unspecified spinal region M41.9 ; Chronic prescription opiate use Z79.891 ; Dysthymia F34.1 ; Alcohol use Z78.9 and Frequent urinary tract infections N39.0 [place] [address] [address] Dec, Other chronic pain G89.29 and Myalgia M79.[address] [address] Dec, Impacted cerumen, right ear H61.21 and Dysfunction of right eustachian tube H69.[address] [address] Nov, Myalgia M79.1 and Other chronic pain G89.29 [facility] [id number], [place] [address] October, Other chronic pain G89.[address] [facility] [id number], [place] [address] Sep, Other chronic pain G89.29 [facility] [id number] [address] Aug, Other chronic pain G89.29 [facility] [id number] [address] Aug, Scoliosis (and kyphoscoliosis), idiopathic M41.20 [facility] [id number] [address] Aug, [place] [id number] [address] Aug, Dysuria R30.0 ; Scoliosis, unspecified scoliosis type, unspecified spinal region M41.9 ; Encounter for therapeutic drug level monitoring Z51.81 and Alcohol use Z78.9 [place] [id number] [address] Aug, Other chronic pain G89.29 [facility] [id number] [address] Jul, Chronic urinary tract infection N39.0 [facility] [id number] [address] Jul, Other chronic pain G89.29 [facility] [id number] [address] Jun, [facility] [id number] [place] [address] Jun, [facility] [id number] [address] Jun, Acute left-sided thoracic back pain M54.6 [facility] [address], [place] [address] 18 Jun, 2017 Cough R05 and Acute bilateral thoracic back pain M54.6 [facility] [id number] [address] 15 Jun, 2017 Back pain, unspecified back location, unspecified back pain laterality, unspecified chronicity M54.9 and Left flank pain R10.9 [place] [id number] [address] Jun, Other chronic pain G89.29 [place] [id number] [address] 03 Jun, 2017 Myalgia M79.1 [place] [id number] [address] 13 May, 2017 Other chronic pain G89.29 [place] [id number] [address] 07 May, 2017 Myalgia M79.1 and Fatigue due to exposure, subsequent encounter T73.2XXD [place] [id number] [address] 05 May, 2017 Fatigue due to exposure, subsequent encounter T73.2XXD [place] [id number] [address] 15 Apr, 2017 Other chronic pain G89.29 and Myalgia M79.1 [place] [id number] [address] 08 Apr, 2017 Closed nondisplaced fracture of phalanx of left great toe with routine healing, unspecified phalanx, subsequent encounter S92.405D ; Dysuria R30.0 ; Localized edema R60.0 and Arthralgia M25.50 [place] [id number] [address] Mar, Other chronic pain G89.[address] [facility] [id number] [address] Mar, [place] [id number] [address] Mar, Dysuria R30.0 ; Other chronic pain G89.29 ; Scoliosis, unspecified scoliosis type, unspecified spinal region M41.9 and Chronic urinary tract infection N39.0 [facility] [id number] [address] Feb, Arthralgia M25.50 and Myalgia M79.1 [place] [id number] [address] Feb, [place] [id number] [address] Feb, [place] [id number] [address] Feb, Closed compression fracture of L4 lumbar vertebra with routine healing, subsequent encounter S32.040D ; Closed nondisplaced fracture of phalanx of left great toe with routine healing, unspecified phalanx, subsequent encounter S92.405D and Chronic urinary tract infection N39.0 [place] [id number] [address] Jan, Closed compression fracture of fourth lumbar vertebra, initial encounter S32.040A [facility] [id number] [address] Jan, Urinary tract infection, site not specified N39.0 [facility] [id number] [address] Jan, [place] [id number] [address] Jan, [place] [id number] [address] Jan, Arthralgia M25.[address] [facility] [id number] [address] Jan, Need for prophylaxis against urinary tract infection Z29.8 and Urinary tract infection, site not specified N39.0 [facility] [id number] [address] Dec, Urinary tract infection, site not specified N39.0 and Need for prophylaxis against urinary tract infection Z29.8 [facility] [id number] [address] Dec, Major depressive disorder, single episode, unspecified F32.9 ; Myalgia M79.1 ; Arthralgia M25.50 and group home 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 Z79.891 [place] [id number] [address] Dec, Other chronic pain G89.29 and Dysuria R30.0 [place] [id number] [address] Nov, group home 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 Z79.891 [place] [id number] [address] Nov, Acute midline low back pain without sciatica M54.5 and group home 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 Z79.891 [place] [id number] [address] Nov, [facility] [id number] [address] October, [facility] [id number] [place] [address] October, [facility] [id number] [address] Sep, Right leg pain M79.604 [place] [id number] [place] [address] Sep, [facility] [id number] [address] Aug, Right leg pain M79.604 [facility] [id number] [address] Jul, [facility] [address] [address] Jul, Arthralgia M25.50 and Right leg pain M79.604 [facility] [id number] [address] Jun, Arthralgia M25.50 [facility] [id number] [address] Jun, [place] [address] [address] Jun, Right leg pain M79.604 [facility] [id number] [address] Jun, Right leg pain M79.604 [place] [id number] [address] Jun, Abnormal mammogram of left breast R92.8 [place] [id number] [address] May, Routine gynecological examination V72.31 ; Breast cancer screening Z12.39 ; Cervical cancer screening Z12.4 ; Colon cancer screening Z12.11 and Calculus of gallbladder without cholecystitis without obstruction K80.20 [place] [id number] [address] May, Arthralgia M25.50 [facility] [id number] [address] Apr, Arthralgia M25.50 [facility] [id number] [address] 17 Apr, [address], [address] [facility] [id number] [address] Apr, Other chronic pain G89.29 ; Scoliosis, unspecified scoliosis type, unspecified spinal region M41.9 ; Right leg pain M79.604 ; Major depressive disorder, single episode, unspecified F32.9 ; Fatigue due to exposure, subsequent encounter T73.2XXD ; Dysthymia F34.1 and Screening, lipid Z13.220 [place] [id number] [address] Apr, Arthralgia M25.50 [place] [id number] [address] Mar, Dysthymia 300.4 [place] [id number] [address] Mar, Arthralgia M25.50 [place] [id number] [address] Feb, Arthralgia M25.50 [facility] [id number] [address] Jan, Arthralgia M25.50 [place] [id number] [address] Dec, 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 [place] [id number] [address] Dec, [facility] [id number] [address] Dec, Right leg pain M79.604 and Scoliosis, unspecified scoliosis type, unspecified spinal region M41.9 [facility] [id number] [address] Dec, Right leg pain M79.604 and Scoliosis, unspecified scoliosis type, unspecified spinal region M41.9 [place] [id number] [address] Dec, Arthralgia M25.50 [place] [id number] [address] Nov, Arthralgia M25.50 [place] [address] [address] October, Arthralgia M25.50 and Scoliosis, unspecified scoliosis type, unspecified spinal region M41.9 [place] [address] [address] Sep, [place] [id number] [address] Aug, [place] [address] [address] Aug, Arthralgia M25.50 ; Myalgia M79.1 and Scoliosis M41.9 [place] [id number] [address] Jul, Other chronic pain G89.29 [place] [id number] [address] Jul, Other chronic pain G89.29 [place] [id number] [address] Jul, Impingement syndrome of both shoulders M75.41 [place] [id number] [address] Jun, [place] [id number] [address] Jun, [place] [id number] [address] Jun, Scoliosis (and kyphoscoliosis), idiopathic M41.20 and Other chronic pain G89.29 [facility] [id number] [address] Jun, Upper respiratory tract infection, unspecified type 465.[address] [facility] [id number] [address] May, [facility] [address] [address] May, [place] [id number] [address] Apr, Dysuria R30.0 ; Urinary tract infection, site not specified N39.0 and Hematuria, unspecified R31.9 [facility] [id number] [address] Apr, [place] [address] [address] Mar, Family history of early CAD Z82.49 [place] [id number] [address] Mar, Other chronic pain G89.29 [place] [id number] [address] Mar, Impingement syndrome of both shoulders M75.41 [place] [id number] [address] Mar, Other chronic pain G89.29 ; Dysthymia F34.1 ; Family history of early CAD Z82.49 ; Dysuria R30.0 and Other specified disorders of Eustachian tube, right ear H69.81 [place] [id number] [address] Mar, [place] [id number] [address] Feb, [place] [address] [place] [address] Jan, [facility] [id number] [address] Jan, Eustachian tube dysfunction 381.[address] [facility] [id number] [address] Dec, [facility] [id number] [address] Nov, Impingement syndrome of both shoulders 726.2 [facility] [id number] [address] Nov, [facility] [id number] [address] Nov, [facility] [id number] [address] Nov, Urgency of urination 788.63 [facility] [id number] [address] October, [facility] [id number] [address] October, [facility] [address] [address] Sep, [facility] [address] [address] Sep, [facility] [address] [address] Aug, [facility] [id number] [address] Aug, [facility] [address] [address] Aug, [facility] [address] [address] Aug, [facility] [place] [facility] [address] [id number] [place] [address] Aug, [facility] [place] [facility] [address] [id number] [place] [address] Aug, [facility] [place] [facility] [address] [id number] [place] [address] Aug, [facility] [place] [facility] [address] [id number] [place] [address] Jul, [facility] [place] [facility] [address] [id number] [place] [address] Jul, [facility] [place] [facility] [address] [id number] [place] [address] Jul, [facility] [place] [facility] [address] [id number] [place] [address] Jul, [facility] [place] [facility] [address] [id number] [place] [address] Jul, [facility] [place] [facility] [address] [id number] [place] [address] Jul, [facility] [place] [facility] [address] [facility] [id number] [place] [address] Jun, [facility] [place] [facility] [address] [id number] [place] [address] Jun, [facility] [place] [facility] [address] [id number] [address] May, [facility] [place] [facility] [address] [id number] [place] [address] May, [facility] [place] [facility] [address] [id number] [place] [address] May, [facility] [place] [facility] [address] [facility] [id number] [place] [address] May, [facility] [place] [facility] [address] [id number] [place] [address] Mar, [facility] [place] [facility] [address] [id number] [place] [address] Mar, [facility] [place] [facility] [address] [id number] [place] [address] Feb, [facility] [place] [facility] [address] [id number] [place] [address] Feb, [facility] [place] [facility] [address] [id number] [place] [address] Jan, [facility] [place] [facility] [address] [id number] [place] [address] Jan, [facility] [place] [facility] [address] [id number] [place] [address] Jan, [facility] [place] [facility] [address] [id number] [place] [address] Jan, [facility] [place] [facility] [address] [id number] [place] [address] Jan, [facility] [place] [facility] [address] [id number] [place] [address] Nov, [facility] [place] [facility] [address] [id number] [place] [address] Nov, [facility] [place] [facility] [address] [id number] [place] [address] October, [facility] [place] [facility] [address] [id number] [place] [address] October, [facility] [place] [facility] [address] [id number] [place] [address] October, [facility] [place] [facility] [address] [id number] [place] [address] October, [facility] [place] [facility] [address] [id number] [place] [address] Sep, [facility] [place] [facility] [address] [id number] [place] [address] Aug, [facility] [place] [facility] [address] [id number] [place] [address] Aug, [facility] [place] [facility] [address] [id number] [place] [address] Aug, [facility] [place] [facility] [address] [id number] [place] [address] Aug, [facility] [place] [facility] [address] [id number] [place] [address] Jul, [facility] [place] [facility] [address] [id number] [place] [address] Jul, [facility] [place] [facility] [address] [id number] [place] [address] Jun, [facility] [place] [facility] [address] [id number] [place] [address] Jun, [facility] [place] [facility] [address] [id number] [place] [address] Jun, [facility] [place] [facility] [address] [id number] [place] [address] Jun, [facility] [place] [facility] [address] [id number] [place] [address] Jun, [facility] [place] [facility] [address] [id number] [place] [address] Jun, [facility] [place] [facility] [address] [id number] [place] [address] Mar, [facility] [place] [facility] [address] [id number] [place] [address] Mar, [facility] [place] [facility] [address] [id number] [place] [address] Feb, [facility] [place] [facility] [address] [id number] [address] Feb, [facility] [address] [id number] [place] [address] Feb, [facility] [place] [facility] [address] [id number] [place] [address] Jan, [facility] [address] [id number] [place] [address] Jan, [facility] [place] [facility] [address] [id number] [place] [address] Dec, [facility] [place] [facility] [address] [id number] [place] [address] Nov, [facility] [place] [facility] [address] [id number] [place] [address] Sep, [facility] [address] [id number] [place] [address] Aug, [facility] [place] [facility] [address] [id number] [place] [address] Aug, [facility] [address] [id number] [place] [address] Aug, [facility] [place] [facility] [address] [id number] [place] [address] Jul, [facility] [address] [id number] [place] [address] Jul, [facility] [place] [facility] [address] [id number] [place] [address] Jul, [facility] [place] [facility] [address] [id number] [place] [address] Jul, [facility] [place] [facility] [address] [id number] [place] [address] Jul, [facility] [place] [facility] [address] [facility] [id number] [address] Apr, [facility] [place] [facility] [address] [id number] [place] [address] Apr, [facility] [place] [facility] [address] [id number] [place] [address] Jan, [facility] [place] [facility] [address] [id number] [place] [address] Jan, [facility] [place] [facility] [address] [id number] [place] [address] Dec, [facility] [place] [facility] [address] [id number] [place] [address] Dec, [facility] [place] [facility] [address] [id number] [place] [address] Dec, [facility] [place] [facility] [address] [id number] [place] [address] Dec, [facility] [place] [facility] [address] [id number] [place] [address] Dec, [facility] [place] [facility] [address] [id number] [place] [address] October, [facility] [place] [facility] [address] [id number] [place] [address] Aug, [facility] [place] [facility] [address] [id number] [place] [address] Aug, [facility] [place] [facility] [address] [id number] [place] [address] Aug, [facility] [place] [facility] [address] [id number] [place] [address] Jul, [facility] [place] [facility] [address] [id number] [place] [address] May, [facility] [place] [facility] [address] [id number] [place] [address] Apr, [facility] [place] [facility] [address] [id number], [place] [address] May, [facility] [address] [facility] [id number] [address] May, [facility] [address] [facility] [id number][place] [address] May, [facility] [address] [facility] [id number] [address] Mar, [facility] [address] [facility] [id number][place] [address] Mar, [facility] [address] [facility] [id number], [place] [address] Aug, IMMUNIZATIONS No Known Immunizations SOCIAL HISTORY Never Assessed REASON FOR VISIT Controlled Med Refill 06/06 PLAN OF CARE VITAL SIGNS MEDICATIONS Medication Instructions Dosage Frequency Start Date End Date Duration Status Percocet 10-325 MG Orally 5 times per day 1 tablet as needed May, 28 days Active Lyrica 150 MG Orally [...]
--- OUTSIDE RECORDS SUMMARY | 2018-11-22 19:10 | XMS REPORT ---
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 571493312635339 Problem Primary osteoarthritis of right knee M17.11 Active 638977290810457 Problem Arthralgia M25.50 Active 91403124 Problem Other chronic pain G89.29 Active 22161328 Problem Acute constipation K59.00 Active 132958726 Problem Major depressive disorder, single episode, unspecified F32.9 Active [id number] ALLERGIES No Information ENCOUNTERS Encounter Location Date Diagnosis [facility] [id number] [place] [address] Aug, [facility] [id number] [place] [address] 15 Jul, 2018 [facility] [id number] [place] [address] Jun, [facility] [id number] [place] [address] May, [facility] [id number] [place] [address] May, [facility] [id number] [place] [address] May, Arthralgia M25.50 [facility] [id number] [place] [address] May, [facility] [address] [place] [address] May, Arthralgia M25.50 and Other chronic pain G89.29 [facility] [id number] [place] [address] Apr, [facility] [id number] [place] [address] Apr, [facility] [address] [address] Apr, Arthralgia of multiple joints M25.50 [facility] [id number] [place] [address] 16 Apr, 2018 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 [facility] [id number] [place] [address] Apr, Other chronic pain G89.29 and Myalgia M79.1 [facility] [id number] [place] [address] 09 Apr, 2018 [facility] [id number] [place] [address] 08 Apr, 2018 Arthralgia of multiple joints M25.50 and Primary osteoarthritis of right knee M17.11 [facility] [id number] [place] [address] 07 Apr, 2018 Acute constipation K59.00 ; Arthralgia M25.50 ; Dysuria R30.0 ; Other chronic pain G89.29 ; Pain in left knee M25.562 and Pain in right knee M25.561 [facility] [id number] [place] [address] Mar, Other chronic pain G89.29 and Myalgia M79.1 [facility] [id number] [place] [address] 20 Feb, 2018 Trochanteric bursitis, right hip M70.61 ; Chondromalacia, right knee M94.261 and 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 [facility] [id number] [place] [address] 18 Feb, 2018 [facility] [id number] [place] [address] 14 Feb, 2018 Other chronic pain G89.29 and Myalgia M79.[address] [address] Jan, [facility] [id number] [place] [address] Jan, Right hip pain M25.551 and Opioid use disorder, mild, in controlled environment F11.10 [place] [id number] [place] [address] Jan, Other chronic pain G89.29 and Myalgia M79.1 [id number] [place] [address] Jan, Urinary tract infection without hematuria, site unspecified N39.0 [place] [id number] [place] [address] 13 Jan, 2018 Therapeutic drug monitoring Z51.81 ; Scoliosis, unspecified scoliosis type, unspecified spinal region M41.9 ; Chronic prescription opiate use Z79.891 ; Dysthymia F34.1 ; Alcohol use Z78.9 and Frequent urinary tract infections N39.0 [facility] [id number] [place] [address] Dec, Other chronic pain G89.29 and Myalgia M79.1 [place] [id number] [place] [address] Dec, Impacted cerumen, right ear H61.21 and Dysfunction of right eustachian tube H69.81 [place] [id number] [place] [address] Nov, Myalgia M79.1 and Other chronic pain G89.29 [facility] [id number] [place] [address] October, Other chronic pain G89.29 and Myalgia M79.1 [facility] [id number] [place] [address] Sep, Other chronic pain G89.29 [facility] [id number] [place] [address] Aug, Other chronic pain G89.29 [facility] [id number] [place] [address] Aug, Scoliosis (and kyphoscoliosis), idiopathic M41.20 [facility] [id number] [place] [address] Aug, [facility] [id number] [place] [address] Aug, Dysuria R30.0 ; Scoliosis, unspecified scoliosis type, unspecified spinal region M41.9 ; Encounter for therapeutic drug level monitoring Z51.81 and Alcohol use Z78.9 [facility] [id number] [place] [address] Aug, Other chronic pain G89.29 [facility] [id number] [place] [address] Jul, Chronic urinary tract infection N39.0 [facility] [id number] [place] [address] Jul, Other chronic pain G89.29 [facility] [id number] [place] [address] Jun, [facility] [id number] [place] [address] Jun, [facility] [id number] [place] [address] Jun, Acute left-sided thoracic back pain M54.6 [facility] [id number] [place] [address] 18 Jun, 2017 Cough R05 and Acute bilateral thoracic back pain M54.6 [facility] [id number] [place] [address] 15 Jun, 2017 Back pain, unspecified back location, unspecified back pain laterality, unspecified chronicity M54.9 and Left flank pain R10.9 [facility] [id number] [place] [address] 10 Jun, 2017 Other chronic pain G89.29 [facility] [address] [address] 03 Jun, 2017 Myalgia M79.1 [facility] [id number] [place] [address] 13 May, 2017 Other chronic pain G89.29 [facility] [id number] [place] [address] 07 May, 2017 Myalgia M79.1 and Fatigue due to exposure, subsequent encounter T73.2XXD [facility] [id number] [place] [address] 05 May, 2017 Fatigue due to exposure, subsequent encounter T73.2XXD [facility] [id number] [place] [address] 15 Apr, 2017 Other chronic pain G89.29 and Myalgia M79.1 [facility] [id number] [place] [address] 08 Apr, 2017 Closed nondisplaced fracture of phalanx of left great toe with routine healing, unspecified phalanx, subsequent encounter S92.405D ; Dysuria R30.0 ; Localized edema R60.0 and Arthralgia M25.50 [facility] [id number] [place] [address] Mar, Other chronic pain G89.29 and Myalgia M79.1 [facility] [id number] [place] [address] Mar, [facility] [id number] [place] [address] Mar, Dysuria R30.0 ; Other chronic pain G89.29 ; Scoliosis, unspecified scoliosis type, unspecified spinal region M41.9 and Chronic urinary tract infection N39.0 [facility] [id number] [place] [address] Feb, Arthralgia M25.50 and Myalgia M79.1 [facility] [id number] [place] [address] Feb, [facility] [id number] [place] [address] Feb, [facility] [id number] [place] [address] Feb, Closed compression fracture of L4 lumbar vertebra with routine healing, subsequent encounter S32.040D ; Closed nondisplaced fracture of phalanx of left great toe with routine healing, unspecified phalanx, subsequent encounter S92.405D and Chronic urinary tract infection N39.0 [facility] [id number] [place] [address] Jan, Closed compression fracture of fourth lumbar vertebra, initial encounter S32.040A [facility] [id number] [place] [address] Jan, Urinary tract infection, site not specified N39.0 [facility] [id number] [place] [address] Jan, [facility] [id number] [place] [address] Jan, [facility] [id number] [place] [address] Jan, Arthralgia M25.50 and Myalgia M79.1 [facility] [id number] [place] [address] Jan, Need for prophylaxis against urinary tract infection Z29.8 and Urinary tract infection, site not specified N39.0 [facility] [id number] [place] [address] Dec, Urinary tract infection, site not specified N39.0 and Need for prophylaxis against urinary tract infection Z29.8 [facility] [id number] [place] [address] Dec, Major depressive disorder, single episode, unspecified F32.9 ; Myalgia M79.1 ; Arthralgia M25.50 and [facility] 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 Z79.891 [facility] [id number] [place] [address] Dec, Other chronic pain G89.29 and Dysuria R30.0 [facility] [id number] [place] [address] Nov, 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 [facility] [id number] [place] [address] Nov, Acute midline low back pain without sciatica M54.5 and 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 [facility] [id number] [place] [address] Nov, [facility] [id number] [place] [address] October, [facility] [id number] [place] [address] October, [facility] [id number] [place] [address] Sep, Right leg pain M79.604 [facility] [id number] [place] [address] Sep, [facility] [id number] [place] [address] Aug, Right leg pain M79.604 [facility] [id number] [place] [address] Jul, [facility] [id number] [place] [address] Jul, Arthralgia M25.50 and Right leg pain M79.604 [facility] [id number] [place] [address] Jun, Arthralgia M25.50 [facility] [id number] [place] [address] Jun, [facility] [id number] [place] [address] Jun, Right leg pain M79.604 [facility] [id number] [place] [address] Jun, Right leg pain M79.604 [facility] [id number] [place] [address] Jun, Abnormal mammogram of left breast R92.8 [facility] [id number] [place] [address] May, Routine gynecological examination V72.31 ; Breast cancer screening Z12.39 ; Cervical cancer screening Z12.4 ; Colon cancer screening Z12.11 and Calculus of gallbladder without cholecystitis without obstruction K80.20 [facility] [id number] [place] [address] May, Arthralgia M25.50 [facility] [id number] [place] [address] Apr, Arthralgia M25.50 [facility] [address] [place] [address] Apr, Screening, lipid Z13.220 [facility] [address] [address] Apr, Other chronic pain G89.29 ; Scoliosis, unspecified scoliosis type, unspecified spinal region M41.9 ; Right leg pain M79.604 ; Major depressive disorder, single episode, unspecified F32.9 ; Fatigue due to exposure, subsequent encounter T73.2XXD ; Dysthymia F34.1 and Screening, lipid Z13.220 [facility] [id number] [place] [address] Apr, Arthralgia M25.50 [facility] [id number] [place] [address] Mar, Dysthymia 300.4 [facility] [address] [address] Mar, Arthralgia M25.50 [facility] [id number] [place] [address] Feb, Arthralgia M25.50 [facility] [address] [address] Jan, Arthralgia M25.50 [facility] [id number] [place] [address] Dec, 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 [facility] [id number] [place] [address] Dec, [facility] [id number] [place] [address] Dec, Right leg pain M79.604 and Scoliosis, unspecified scoliosis type, unspecified spinal region M41.9 [facility] [id number] [place] [address] Dec, Right leg pain M79.604 and Scoliosis, unspecified scoliosis type, unspecified spinal region M41.9 [facility] [id number] [place] [address] Dec, Arthralgia M25.50 [facility] [id number] [place] [address] Nov, Arthralgia M25.50 [place] [address] [address] October, Arthralgia M25.50 and Scoliosis, unspecified scoliosis type, unspecified spinal region M41.9 [place] [address] [address] Sep, [place] [facility] [address] [address] Aug, [place] [address] [address] Aug, Arthralgia M25.50 ; Myalgia M79.1 and Scoliosis M41.9 [place] [id number] [place] [address] Jul, Other chronic pain G89.29 [facility] [id number] [place] [address] Jul, Other chronic pain G89.29 [facility] [address] [address] Jul, Impingement syndrome of both shoulders M75.41 [facility] [id number] [place] [address] Jun, [facility] [address] [address] Jun, [facility] [id number] [place] [address] Jun, Scoliosis (and kyphoscoliosis), idiopathic M41.20 and Other chronic pain G89.29 [facility] [id number] [place] [address] Jun, Upper respiratory tract infection, unspecified type 465.9 and Rhinorrhea J34.89 [facility] [id number] [place] [address] May, [facility] [address] [address] May, [facility] [id number] [place] [address] Apr, Dysuria R30.0 ; Urinary tract infection, site not specified N39.0 and Hematuria, unspecified R31.9 [facility] [id number] [place] [address] Apr, [facility] [address] [address] Mar, Family history of early CAD Z82.49 [facility] [id number] [place] [address] Mar, Other chronic pain G89.29 [facility] [id number] [place] [address] Mar, Impingement syndrome of both shoulders M75.41 [facility] [id number] [place] [address] Mar, Other chronic pain G89.29 ; Dysthymia F34.1 ; Family history of early CAD Z82.49 ; Dysuria R30.0 and Other specified disorders of Eustachian tube, right ear H69.81 [place] [id number] [place] [address] Mar, [facility] [id number] [place] [address] Feb, [facility] [address] [address] Jan, [facility] [address] [address] Jan, Eustachian tube dysfunction 381.81 and Dysthymia 300.4 [facility] [id number] [address] Dec, [facility] [id number] [place] [address] Nov, Impingement syndrome of both shoulders 726.2 [facility] [id number] [place] [address] Nov, [facility] [id number] [place] [address] Nov, [facility] [id number] [place] [address] Nov, Urgency of urination 788.63 [facility] [address] [address] October, [facility] [id number] [place] [address] October, [facility] [address] [address] Sep, [facility] [address] [address] Sep, [facility] [address] [place] [address] Aug, [facility] [address] [address] Aug, [facility] [address] [address] Aug, [facility] [address] [address] Aug, [facility] [place] [facility] [address] [id number] [place] [address] Aug, [facility] [place] [facility] [address] [id number] [place] [address] Aug, [facility] [place] [facility] [address] [id number] [place] [address] Aug, [facility] [place] [facility] [address] [id number] [place] [address] Jul, 2014 [facility] [place] [facility] [address] [id number] [place] [address] Jul, 2014 [facility] [place] [facility] [address] [id number] [place] [address] Jul, [facility] [place] [facility] [address] [facility] [id number] [place] [address] Jul, [facility] [place] [facility] [address] [facility] [id number] [place] [address] Jul, [facility] [place] [facility] [address] [id number] [place] [address] Jul, [facility] [place] [facility] [address] [facility] [id number] [place] [address] Jun, [facility] [place] [facility] [address] [facility] [id number] [place] [address] Jun, [facility] [place] [facility] [address] [id number] [place] [address] May, [facility] [place] [facility] [address] [id number] [place] [address] May, [facility] [place] [facility] [address] [id number] [place] [address] May, [facility] [place] [facility] [address] [id number] [place] [address] May, [facility] [place] [facility] [address] [id number] [place] [address] Mar, [facility] [place] [facility] [address] [id number] [place] [address] Mar, [facility] [place] [facility] [address] [id number] [place] [address] Feb, [facility] [place] [facility] [address] [id number] [place] [address] Feb, [facility] [place] [facility] [address] [id number] [place] [address] Jan, [facility] [place] [facility] [address] [id number] [place] [address] Jan, [facility] [place] [facility] [address] [id number] [place] [address] Jan, [facility] [place] [facility] [address] [id number] [place] [address] Jan, [facility] [place] [facility] [address] [id number] [place] [address] Jan, [facility] [place] [facility] [address] [id number] [place] [address] Nov, [facility] [place] [facility] [address] [id number] [place] [address] Nov, [facility] [place] [facility] [address] [id number] [place] [address] October, [facility] [place] [facility] [address] [id number] [place] [address] October, [facility] [place] [facility] [address] [id number] [place] [address] October, [facility] [place] [facility] [address] [id number] [place] [address] October, [facility] [place] [facility] [address] [id number] [place] [address] Sep, [facility] [place] [facility] [address] [id number] [place] [address] Aug, [facility] [place] [facility] [address] [id number] [place] [address] Aug, [facility] [place] [facility] [address] [id number] [place] [address] Aug, [facility] [place] [facility] [address] [id number] [place] [address] Aug, [facility] [place] [facility] [address] [id number] [place] [address] Jul, [facility] [place] [facility] [address] [id number] [place] [address] Jul, [facility] [place] [facility] [address] [id number] [place] [address] Jun, [facility] [place] [facility] [address] [id number] [place] [address] Jun, [facility] [place] [facility] [address] [id number] [place] [address] Jun, [facility] [place] [facility] [address] [id number] [place] [address] Jun, [facility] [place] [facility] [address] [id number] [place] [address] Jun, [facility] [place] [facility] [address] [id number] [place] [address] Jun, [facility] [place] [facility] [address] [id number] [place] [address] Mar, [facility] [place] [facility] [address] [id number] [place] [address] Mar, [facility] [place] [facility] [address] [id number] [place] [address] Feb, [facility] [place] [facility] [address] [id number] [place] [address] Feb, [facility] [place] [facility] [address] [id number] [place] [address] Feb, [facility] [place] [facility] [address] [id number] [place] [address] Jan, [facility] [place] [facility] [address] [id number] [place] [address] Jan, [facility] [place] [facility] [address] [id number] [place] [address] Dec, [facility] [place] [facility] [address] [id number] [place] [address] Nov, [facility] [place] [facility] [address] [id number] [place] [address] Sep, [facility] [place] [facility] [address] [id number] [place] [address] Aug, [facility] [place] [facility] [address] [id number] [place] [address] Aug, [facility] [place] [facility] [address] [id number] [place] [address] Aug, [facility] [place] [facility] [address] [id number] [place] [address] Jul, [facility] [place] [facility] [address] [id number] [place] [address] Jul, [facility] [place] [facility] [address] [id number] [place] [address] Jul, [facility] [place] [facility] [address] [id number] [place] [address] Jul, [facility] [place] [facility] [address] [id number] [place] [address] Jul, [facility] [place] [facility] [address] [id number] [place] [address] Apr, [facility] [place] [facility] [address] [id number] [place] [address] Apr, [facility] [address] [id number] [place] [address] Jan, [facility] [place] [facility] [address] [id number] [place] [address] Jan, [facility] [address] [id number] [place] [address] Dec, [facility] [address] [id number] [place] [address] Dec, [facility] [address] [id number] [place] [address] Dec, [facility] [address] [id number] [place] [address] Dec, [facility] [address] [id number] [place] [address] Dec, [facility] [address] [id number] [place] [address] October, [facility] [address] [id number] [place] [address] Aug, [facility] [address] [id number] [place] [address] Aug, [facility] [address] [id number] [place] [address] Aug, [facility] [address] [id number] [place] [address] Jul, [facility] [address] [id number] [place] [address] May, [facility] [place] [facility] [address] [id number] [place] [address] Apr, [facility] [address] [id number] [place] [address] May, [facility] [address] [id number], [place] [address] May, [facility] [address] [id number], [place] [address] May, [facility] [address] [id number], [place] [address] Mar, [facility] [address] [id number], [place] [address] Mar, [facility] [address] [id number], [place] [address] Aug, IMMUNIZATIONS No Known Immunizations SOCIAL HISTORY Never Assessed REASON FOR VISIT PALS IN [facility] PLAN OF CARE VITAL SIGNS MEDICATIONS Unknown Medications RESULTS No Results PROCEDURES No Known procedures INSTRUCTIONS MEDICATIONS ADMINISTERED No Known Medications MEDICAL (GENERAL) HISTORY Type Description Date Medical History chronic pain Medical History arthritis Surgical History Nephrectomy - age 3 Surgical History Appendectomy Hospitalization History surgery Hospitalization History childbirth x 3
--- OUTSIDE RECORDS SUMMARY | 2018-11-22 19:18 | XMS REPORT | Continuity of Care Document ---
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 REGISTERED NURSE Ot F41.9 ANXIETY DISORDER, UNSPECIFIED 02/22/2017 MAGDA [...] CYSTITIS NEC 07/13/2017 Ot 591 HYDRONEPHROSIS 07/13/2017 CHUY NGUYEN LATRICE Ot Z12.31 ENCNTR SCREEN MAMMOGRAM FOR MALIGNANT NE 07/13/2017 CHUY NGUYEN LATRICE Ot R92.8 OTH ABN AND INCONCLUSIVE FINDINGS ON DX 07/13/2017 CORTNEY ELIZABETH, LEXI Godoy Ot 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671 PAIN IN RIGHT FOOT 06/07/2018 MAGDA OCONNOR APRN Ot X50.1XXA OVEREXERTION FROM PROLONGED STATIC OR AW 06/07/2018 MAGDA OCONNOR APRN Ot Y93.01 ACTIVITY, WALKING, MARCHING AND HIKING 06/07/2018 MAGDA OCONNOR APRN Ot Z85.528 PERSONAL HISTORY OF OTHER MALIGNANT NEOP 06/07/2018 MAGDA OCONNOR APRN Ot Z87.448 PERSONAL HISTORY OF OTHER DISEASES OF UR 06/07/2018 MAGDA OCONNOR APRN Ot Z88.2 ALLERGY STATUS TO SULFONAMIDES STATUS 06/07/2018 MAGDA OCONNOR APRN Ot Z88.6 ALLERGY STATUS TO ANALGESIC AGENT STATUS 06/07/2018 MAGDA OCONNOR APRN Ot Z90.5 ACQUIRED ABSENCE OF KIDNEY 06/07/2018 MAGDA OCONNOR APRN Ot Z98.890 OTHER SPECIFIED POSTPROCEDURAL STATES 06/11/2018 MAGDA OCONNOR APRN Ot F41.9 ANXIETY DISORDER, UNSPECIFIED 06/11/2018 MAGDA OCONNOR APRN Ot M79.671 PAIN IN RIGHT FOOT 06/11/2018 MAGDA OCONNOR APRN Ot X50.1XXA OVEREXERTION FROM PROLONGED STATIC OR AW 06/11/2018 MAGDA OCONNOR APRN Ot Y93.01 ACTIVITY, WALKING, MARCHING AND HIKING 06/11/2018 MAGDA COONNOR APRN Ot Z85.528 PERSONAL HISTORY OF OTHER MALIGNANT NEOP 06/11/2018 MAGDA OOCNNOR APRN Ot Z87.448 PERSONAL HISTORY OF OTHER DISEASES OF UR 06/11/2018 MAGDA OCONNOR APRN Ot Z88.2 ALLERGY STATUS TO SULFONAMIDES STATUS 06/11/2018 MAGDA OCONNOR APRN Ot Z88.6 ALLERGY STATUS TO ANALGESIC AGENT STATUS 06/11/2018 MAGDA OCONNOR APRN Ot Z90.5 ACQUIRED ABSENCE OF KIDNEY 06/11/2018 MAGDA OCONNOR APRN Ot Z98.890 OTHER SPECIFIED POSTPROCEDURAL STATES Procedures Code [place] [address] ROUTINE VENIPUNCTURE 08/16/2012 08696 ESR/SED RATE 08/16/2012 71869 CBC 08/16/2012 39607 CMP 08/16/2012 [id number] GFR CALC (RESULT ONLY) 08/16/2012 76370 VITAMIN D 25-HYDROXY (D2,D3, TOTAL) 08/16/2012 11520 UA W/MICROSCOPY 08/16/2012 78651 CULTURE URINE 08/19/2012 47139 XRAY CHEST 2 VIEW 2012 [facility] [place] 2012 35402 XRAY LUMBAR SPINE 2 OR 3 VIEWS 08/29/2012 85792 XRAY THORACIC SPINE 3 VIEWS 08/30/2012 Orthopedi Timo Squires 09/04/2012 94295 XRAY THORACIC SPINE 3 VIEWS 11/09/2012 86148 ROUTINE VENIPUNCTURE 03/04/2013 31283 CMP 03/04/2013 [id number] GFR CALC (RESULT ONLY) 03/04/2013 JOINT INJECTION- INTERMEDIATE JOINT 04/11/2013 JOINT INJECTION - SMALL JOINT 07/18/2013 JOINT INJECTION- INTERMEDIATE JOINT 07/18/2013 01675 UA W/ CULTURE IF INDICATED 07/24/2013 43399 ROUTINE VENIPUNCTURE 07/26/2013 98043 CULTURE URINE 07/26/2013 44595 CBC 07/26/2013 [id number] GFR CALC (RESULT ONLY) 07/26/2013 70620 CMP 07/26/2013 23820 LIPID PANEL 07/26/2013 71670 TSH 07/26/2013 27339 UA W/ CULTURE IF INDICATED 09/23/2013 85986 CULTURE URINE 09/25/2013 JOINT INJECTION- INTERMEDIATE JOINT 10/24/2013 J1100 DEXAMETHASONE SODIUM PHOS, 1 MG 10/24/2013 84781 UA W/ CULTURE IF INDICATED 02/20/2014 27366 CULTURE URINE 02/22/2014 17404 [employer] 09/09/2014 36672 UA LONG DIP 09/09/2014 72842 CULTURE URINE 09/11/2014 Results Test Result Range [...] Automated erythrocyte mean corpuscular hemoglobin concentration measurement (mass/volume) 34 g/dL 32-36 Automated erythrocyte distribution width ratio 13.1 % 10.0- 14.5 Automated blood platelet count (count/volume) 394 10*3/uL [...] Blood monocytes automated count (number/volume) 1.2 10*3 0.0- 1.0 Automated eosinophil count 0.1 10*3/uL 0.0-0.3 Automated [...] Serum or plasma aspartate aminotransferase measurement (enzymatic activity/volume) 27 U/L 5-34 Serum or plasma alanine aminotransferase measurement (enzymatic activity/volume) 17 U/L 0-55 Serum or plasma protein measurement (mass/volume) 7.2 g/dL 6.4-8.2 Serum or plasma albumin measurement (mass/volume) 4.4 g/dL 3.2-4.5 Blood manual differential performed detection - 06/10/16 07:00 Blood monocytes/100 leukocytes 7 % NRG Manual blood segmented neutrophils/100 leukocytes 91 % NRG Manual blood lymphocytes/100 leukocytes 2 % NRG Blood erythrocyte morphology finding identification NORMAL NRG CULTURE, URINE - 05/03/17 12:47 CULTURE, URINE, ROUTINE SEE NOTE NRG CCP ANTIBODY - 03/29/18 16:51 CYCLIC CITRULLINATED PEPTIDE (CCP) AB (IGG) [...] NEGATIVE ng/mL <25 medMATCH Phencyclidine CONSISTENT NRG CMP - 09/21/18 10:26 GLUCOSE 80 mg/dL 65-139 UREA NITROGEN (BUN) 16 mg/dL 7-25 CREATININE 0.81 mg/dL 0.50-1.05 eGFR NON-AFR. TOGOLESE 82 mL/min/1.73m2 > OR=60 eGFR 95 mL/min/1.73m2 > OR=60 BUN/CREATININE RATIO NOT APPLICABLE (calc) 6-22 SODIUM 138 mmol/L 135-146 POTASSIUM 3.8 mmol/L 3.5-5.3 CHLORIDE 106 mmol/L 98-110 CARBON DIOXIDE 24 mmol/L 20-32 CALCIUM 9.1 mg/dL 8.6-10.4 PROTEIN, TOTAL 6.8 g/dL 6.1-8.1 ALBUMIN 4.4 g/dL 3.6-5.1 GLOBULIN 2.4 g/dL (calc) 1.9-3.7 ALBUMIN/GLOBULIN RATIO 1.8 (calc) 1.0-2.5 BILIRUBIN, TOTAL 0.5 mg/dL 0.2-1.2 ALKALINE PHOSPHATASE 116 U/L 33-130 AST 36 U/L 10-35 ALT 14 U/L 6-29 Encounters ACCT No. Visit Date/Time Discharge Status Pt. Type Provider Facility Loc./Unit Complaint [id number] 09/09/2014 08:47:00 09/09/2014 23:59:59 CLS Outpatient CHUY NGUYEN APRN [id number] 02/20/2014 10:37:00 02/20/2014 23:59:59 CLS Outpatient CHUY NGUYEN APRN [id number] 10/24/2013 13:54:00 10/24/2013 23:59:59 CLS Outpatient TUAN MTZ DO [id number] 09/23/2013 08:45:00 09/23/2013 23:59:59 CLS Outpatient CHUY NGUYEN APRN [id number] 07/26/2013 08:01:00 07/26/2013 23:59:59 CLS Outpatient CHUY NGUYEN APRN [id number] 07/18/2013 13:27:00 07/18/2013 23:59:59 CLS Outpatient TUAN MTZ DO [id number] 04/11/2013 15:24:00 04/11/2013 23:59:59 CLS Outpatient TUAN MTZ DO [id number] 08/22/2012 11:49:00 08/22/2012 23:59:59 CLS Outpatient CHUY NGUYEN APRN [id number] 08/16/2012 11:48:00 08/16/2012 23:59:59 CLS Outpatient CHUY NGUYEN APRN [id number] 01/26/2012 12:12:00 01/26/2012 23:59:59 CLS Outpatient [id number] 03/04/2013 08:49:00 Document Registration [id number] 06/07/2018 12:55:00 06/07/2018 14:14:00 DIS Emergency MAGDA OCONNOR ICU REGISTERED NURSE Via [facility] R FOOT PAIN [id number] 07/13/2017 13:20:00 07/13/2017 13:41:00 DIS Outpatient DICK HARTMANN DO Via [facility] ER BACK PAIN [id number] 02/25/2017 09:14:00 02/25/2017 23:59:59 CLS Outpatient LEXI BARR MD [facility] RAD CLOSED COMPRESSION FRACTURE [id number] 02/22/2017 20:32:00 02/22/2017 23:22:00 DIS Emergency MAGDA OCONNOR APRN [facility] ER PT FELL,LT EAR INJ,BACK PAIN [id number] 07/15/2016 07:26:00 07/15/2016 23:59:59 CLS Outpatient CHUY NGUYEN [facility] RAD ABNORMAL MAMMO OF LEFT BREAST [id number] 06/28/2016 08:35:00 06/28/2016 23:59:59 CLS Outpatient CHUY NGUYEN [facility] RAD SCREENING [id number] 06/10/2016 05:45:00 06/10/2016 09:36:00 DIS Emergency NILTON MEDELLIN MD [facility] ER POSS GALLBLADDER PAIN [id number] 04/12/2016 08:26:00 04/26/2016 13:49:00 DIS Outpatient CHUY NGUYEN [facility] REHAB SEVERE SCOLIOSIS THORACIC AND LUMBAR SPINE [id number] 01/28/2015 06:16:00 01/28/2015 06:59:00 DIS Emergency DICK HARTMANN DO [facility] ER RT EAR PAIN,FEVER [id number] 12/13/2014 11:24:00 12/13/2014 12:43:00 DIS Emergency GOKUL DIAZ [facility] ER BUG BITE [id number] 11/13/2013 15:45:00 11/14/2013 12:50:00 DIS Inpatient ABDULAZIZ GRAVES MD [facility] SURGICAL SBO, CHOLELITHIASIS, RUQ PX, UTI [id number] 10/28/2013 10:43:00 10/28/2013 13:45:00 DIS Emergency DOTTIE SANCHEZ MD [facility] ER ABD PAIN [id number] 07/15/2013 12:31:00 07/15/2013 13:40:00 DIS Emergency MAGDA OCONNOR APRN [facility] ER RIGHT HAND PAIN [id number] 12/13/2014 11:25:00 Document Registration [id number] 09/27/2012 12:49:00 Document Registration [id number] 09/04/2012 11:44:00 Document Registration [id number] 08/29/2012 10:32:00 Document Registration [id number] 01/20/2012 07:17:00 Document Registration [id number] 10/01/2018 17:15:00 10/01/2018 23:59:59 [facility] Outpatient EDA CHOW [facility] [id number] 09/21/2018 09:20:00 Document Registration [id number] 02/05/2018 10:20:00 Document Registration [id number] 02/05/2018 00:00:00 Document Registration [id number] 09/21/2017 15:00:00 Document Registration [id number] 05/03/2017 08:00:00 Document Registration
[2018-11-22] MEDS: KCL IV SCH ×2 (19:28)
[2018-11-22] MEDS: NS IV SCH ×2 (19:28)
[2018-11-22 19:47] VITALS: BP 134/78
[2018-11-22] MEDS: fentaNYL INJECTION 100 MCG/2 ML AMP IV PRN ×2 (20:00→22:48)
[2018-11-22 23:51] VITALS: BP 138/83
--- NOTE | 2018-11-22 23:53 | NUR ---
2200 PATIENT STATED HER NG TUBE 'FELL' OUT WHILE GOING TO . ASSISTED SARAH MCFADDEN WITH INSERTION OF NEW NG TUBE. PATIENT COMPLAINS OF SORE THROAT PRIOR TO INSERTION. CONTACTED DR BARR. RECEIVED ORDER FOR CHLORASEPTIC SPRAY.
[2018-11-23] MEDS ORDERED: CHLORASEPTIC SPRAY 177 ML LIQUID MC PRN
--- NOTE | 2018-11-23 02:45 | NUR ---
PATIENT STATES HER NG TUBE 'FELL OUT' WHILE USING BR. REFUSES TO HAVE NG TUBE PUT BACK IN. WILL NOTIFY MD IN AM
[2018-11-23] MEDS: NS IV SCH ×4 (03:10→08:52)
[2018-11-23] MEDS: KCL IV SCH ×4 (03:10→08:52)
[2018-11-23 04:00] VITALS: BP 124/89
[2018-11-23 04:58] LABS: BASOPHILS % (AUTO) 0 % (0-10); EOSINOPHILS # (AUTO) 0.1 10^3/uL (0.0-0.3); EOSINOPHILS % (AUTO) 1 % (0-10); HEMATOCRIT 40 % (35-52); HEMOGLOBIN 13.5 G/DL (11.5-16.0); LYMPHOCYTES # (AUTO) 0.9 X 10^3 (1.0-4.0); LYMPHOCYTES % (AUTO) 8 % (12-44); MEAN CORPUSCULAR HEMOGLOBIN 31 PG (25-34); MEAN CORPUSCULAR HGB CONC 34 G/DL (32-36); MEAN CORPUSCULAR VOLUME 92 FL (80-99); MEAN PLATELET VOLUME 10.1 FL (7.4-10.4); MONOCYTES # (AUTO) 1.2 X 10^3 (0.0-1.0); MONOCYTES % (AUTO) 10 % (0-12); NEUTROPHILS # (AUTO) 9.2 X 10^3 (1.8-7.8); NEUTROPHILS % (AUTO) 81 % (42-75); PLATELET COUNT 290 10^3/uL (130-400); RED CELL DISTRIBUTION WIDTH 14.8 % (10.0-14.5); WHITE BLOOD COUNT 11.4 10^3/uL (4.3-11.0)
[2018-11-23] MEDS: fentaNYL INJECTION 100 MCG/2 ML AMP IV PRN ×2 (05:00→08:52)
[2018-11-23 05:20] LABS: ALANINE AMINOTRANSFERASE 16 U/L (0-55); ALKALINE PHOSPHATASE 111 U/L (40-136); BILIRUBIN,TOTAL 0.5 MG/DL (0.1-1.0); BUN/CREATININE RATIO 15; CALCIUM 8.9 MG/DL (8.5-10.1); CARBON DIOXIDE 20 MMOL/L (21-32); CHLORIDE 110 MMOL/L (98-107); CREATININE SERUM 0.67 MG/DL (0.60-1.30); GFR ESTIMATED > 60; GLUCOSE 84 MG/DL (70-105); POTASSIUM 4.9 MMOL/L (3.6-5.0); SODIUM 139 MMOL/L (135-145); TOTAL PROTEIN 6.7 GM/DL (6.4-8.2)
[2018-11-23 08:00] VITALS: BP 123/81
[2018-11-23] MEDS ORDERED: NICOTINE PATCH REMOVAL TP SCH (08:59)
[2018-11-23] MEDS ORDERED: PANTOPRAZOLE 40 MG (PROTONIX) VIAL IV SCH (09:00)
[2018-11-23] MEDS ORDERED: NICOTINE 21 MG (NICODERM) PATCH TD SCH (09:00)
[2018-11-23] MEDS ORDERED: DOCU-143 PO (09:34)
[2018-11-23] MEDS ORDERED: OXYC1TAB12 PO (09:44)
[2018-11-23] MEDS ORDERED: PREG150C PO ×2 (09:44→09:48)
[2018-11-23] MEDS ORDERED: DESV50TA PO (09:44)
[2018-11-23] MEDS ORDERED: CELE100C PO (09:44)
[2018-11-23] MEDS ORDERED: FLUT16SP22 NS (09:54)
[2018-11-23] MEDS ORDERED: CHLO500T4 PO (09:55)
[2018-11-23] MEDS ORDERED: RT-ALBUINH INH (09:55)
--- NOTE | 2018-11-23 09:55 | NUR ---
SPOKE WITH THE PATIENT ABOUT HER MEDICATIONS. SHE LISTED WHAT SHE IS TAKING AND I CALLED [facility] TO VERIFY DOSES. [facility] FILLED: 11-21-18 PERCOCET 10-325MG 5X DAILY PRN 11-14-18 CHLORZOXAZONE 500MG TID 11-03-18 PRISTIQ 50MG DAILY 10-23-18 CELEBREX 100MG BID 09-21-18 FLONASE DAILY 09-21-18 PROVENTIL HFA 2 PUFFS Q6H PRN [employer] FILLED LYRICA 150MG #270 FOR 90 DAYS, SHE STATES THIS IS THROUGH THE PALS PROGRAM SHE TAKES A STOOL SOFTENER OTC NEEDED
[2018-11-23] MEDS ORDERED: FLUTICASONE NASAL SPRAY (FLONASE) 16 GM BTL NS SCH (11:07)
--- NOTE | 2018-11-23 11:13 | Progress Note ---
Subjective Time Seen by a Provider: 10:49 Subjective/Events-last exam Pt seen and examined, denies nausea or vomiting and abdominal pain. States she had 3 BM's that were mostly liquid with some "solid stuff in there". Pt reports that "yes, the tube did fall out twice....I know the nurses don't believe me," Review of Systems General: No Chills, No Night Sweats Pulmonary: No Dyspnea, No Cough Cardiovascular: No: Chest Pain, Palpitations Gastrointestinal: Diarrhea; No: Nausea Objective Exam Vital Signs Date Time Temp Pulse Resp B/P (MAP) Pulse Ox O2 Delivery O2 Flow Rate FiO2 11/23/18 08:00 98.5 88 20 123/81 (95) 96 Room Air 11/23/18 08:00 96 Room Air 11/23/18 04:00 98.7 81 18 124/89 (101) 98 Room Air 11/22/18 23:51 98.0 70 16 138/83 (101) 96 Room Air 11/22/18 20:00 98 Room Air 11/22/18 19:47 96.8 62 20 134/78 (96) 98 Room Air 11/22/18 17:55 Room Air 11/22/18 17:54 97.6 69 20 134/84 98 Room Air 11/22/18 17:37 98.0 75 18 139/96 (110) 95 Room Air 11/22/18 14:50 96.0 76 22 116/86 (96) 98 Room Air I & O 11/23/18 07:00 Output Total 150 ml Balance -150 ml Capillary Refill : Less Than 3 Seconds General Appearance: No Apparent Distress, WD/WN Respiratory: Chest Non Tender, Lungs Clear, Normal Breath Sounds Cardiovascular: Regular Rate, Rhythm, No Murmur Gastrointestinal: normal bowel sounds, no organomegaly, distended (mostly lower abdomen, less than yesterday), tenderness (very minimal in lower abdomen), hernia (umbilical hernia) Skin: Normal Color, Warm/Dry Results Lab Laboratory Tests 11/22/18 15:07: White Blood Count 11.9H, Red Blood Count 4.06L, Hemoglobin 12.8, Hematocrit 37, Mean Corpuscular Volume 91, Mean Corpuscular Hemoglobin 32, Mean Corpuscular Hemoglobin Concent 35, Red Cell Distribution Width 14.3, Platelet Count 279, Mean Platelet Volume 9.9, Neutrophils (%) (Auto) 78H, Lymphocytes (%) (Auto) 8L, Monocytes (%) (Auto) 13H, Eosinophils (%) (Auto) 1, Basophils (%) (Auto) 0, Neutrophils # (Auto) 9.3H, Lymphocytes # (Auto) 0.9L, Monocytes # (Auto) 1.6H, Eosinophils # (Auto) 0.1, Basophils # (Auto) 0.0, Neutrophils % (Manual) 78, Lymphocytes % (Manual) 4, Monocytes % (Manual) 13, Eosinophils % (Manual) 3, Basophils % (Manual) 0, Band Neutrophils 2, Blood Morphology Comment NORMAL, Sodium Level 136, Potassium Level 3.8, Chloride Level 104, Carbon Dioxide Level 21, Anion Gap 11, Blood Urea Nitrogen 18, Creatinine 0.97, Estimat Glomerular Filtration Rate 60, BUN/Creatinine Ratio 19, Glucose Level 111H, Calcium Level 9.1, Corrected Calcium 8.9, Total Bilirubin 0.5, Aspartate Amino Transf (AST/SGOT) 29, Alanine Aminotransferase (ALT/SGPT) 13, Alkaline Phosphatase 112, Total Protein 7.1, Albumin 4.3, Lipase 14 11/22/18 16:34: Urine Color YELLOW, Urine Clarity CLEAR, Urine pH 5, Urine Specific [place] 1.015L, Urine Protein NEGATIVE, Urine Glucose (UA) NEGATIVE, Urine Ketones NEGATIVE, Urine Nitrite NEGATIVE, Urine Bilirubin NEGATIVE, Urine Urobilinogen NORMAL, Urine Leukocyte Esterase NEGATIVE, Urine RBC (Auto) 1+H, Urine RBC 0-2, Urine WBC NONE, Urine Squamous Epithelial Cells 10-25H, Urine Crystals NONE, Urine Bacteria TRACE, Urine Casts NONE, Urine Mucus NEGATIVE, Urine Culture Indicated NO 11/23/18 04:19: White Blood Count 11.4H, Red Blood Count 4.32L, Hemoglobin 13.5, Hematocrit 40, Mean Corpuscular Volume 92, Mean Corpuscular Hemoglobin 31, Mean Corpuscular Hemoglobin Concent 34, Red Cell Distribution Width 14.8H, Platelet Count 290, Mean Platelet Volume 10.1, Neutrophils (%) (Auto) 81H, Lymphocytes (%) (Auto) 8L , Monocytes (%) (Auto) 10, Eosinophils (%) (Auto) 1, Basophils (%) (Auto) 0, Neutrophils # (Auto) 9.2H, Lymphocytes # (Auto) 0.9L, Monocytes # (Auto) 1.2H, Eosinophils # (Auto) 0.1, Basophils # (Auto) 0.0, Sodium Level 139, Potassium Level 4.9, Chloride Level 110H, Carbon Dioxide Level 20L, Anion Gap 9, Blood Urea Nitrogen 10, Creatinine 0.67, Estimat Glomerular Filtration Rate > 60, BUN/Creatinine Ratio 15, Glucose Level 84, Calcium Level 8.9, Corrected Calcium 8.9, Total Bilirubin 0.5, Aspartate Amino Transf (AST/SGOT) 31, Alanine Aminotransferase (ALT/SGPT) 16, Alkaline Phosphatase 111, Total Protein 6.7, Albumin 4.0 Assessment/Plan Assessment/Plan Assessment/Plan PSBO Pt is doing better and she really wants to leave; I had talk with pt that normal hospital course would probably be one more overnight stay. Start clears and make sure she tolerates that, if she did she could go home. She wants to start clears and states she could continue them at home. I will leave this up to Dr. Marques, it might be ok but also might be too early. As long as pt knows the risks and agrees to come back if she gets worse.......then it would probably be ok. Clinical Quality Measures DVT/VTE Risk/Contraindication: Risk Factor Score Per Nursin RFS Level Per Nursing on Admit: 2=Moderate JOSE RAWLS DO November 23, 2018 11:13
[2018-11-23 11:43] VITALS: BP 119/77
[2018-11-23] MEDS ORDERED: PREGABALIN 75 MG (LYRICA) CAP PO SCH (13:00)
[2018-11-23] MEDS ORDERED: CHLORZOXAZONE 500 MG PO SCH (13:00)
--- NOTE | 2018-11-23 14:50 | Discharge Instructions ---
Discharge [facility] Discharge Medications Continued Medications: Albuterol Sulfate (Proventil Hfa) 6.7 Gm Hfa.aer.ad 2 PUFF INH Q6H PRN for SHORTNESS OF BREATH, INHALER Celecoxib (Celebrex) 100 Mg Capsule 100 MG PO BID, CAP Chlorzoxazone (Chlorzoxazone) 500 Mg Tablet 500 MG PO TID, TAB Desvenlafaxine Succinate (Pristiq ER) 50 Mg Tab.er.24h 50 MG PO DAILY, TAB Docusate Sodium (Colace) 100 Mg Capsule 100 MG PO BID PRN for CONSTIPATION-1ST LINE, CAP Fluticasone Propionate (Fluticasone Propionate) 16 Gm [place].susp 2 SPRAYS NS DAILY, SPRAY Oxycodone HCl/Acetaminophen (Percocet 10-325 mg Tablet) 1 Each Tablet 1 TAB PO 5XD PRN for PAIN-MODERATE, TAB Pregabalin (Lyrica) 150 Mg Capsule 150 MG PO TID, CAP Patient Instructions Goal/Follow Up Appt: Follow up with Nancy Mary APRN on November 28 at 940 am. Return to The Hospital For: Inability to keep down liquids, severe abdominal pain, vomiting Activity & Diet Discharge Diet: Liquid Diet (x at least 24 hours, advance after that if tolera denice) Activity as Tolerated: Yes Copy Copies To 1: CHE Berman BETHANY N MD November 23, 2018 14:49
[2018-11-23 15:21] VITALS: BP 119/77
--- NOTE | 2018-11-23 16:57 | Short Stay Summary ---
History of Present Illness History of Present Illness Reason for visit/HPI 53 yo female came to hospital due to abdominal pain. She has had bowel obstruction in the past. She had an NG placed, but it came out twice and she has had 3 bowel movements and is requesting to go home on the morning after admission. She denies nausea/vomiting. Date of Admission November 22, 2018 at 17:11 Date of Discharge November 23, 2018 at 15:23 Time Seen by Provider: 13:10 Attending Physician Kymberly Marques MD Admitting Physician [place],Local Physician Consult Dr. King/General Surgery Allergies and Home Medications Allergies Coded Allergies: Sulfa (Sulfonamide Antibiotics) (Unverified Allergy, Unknown, 11/13/13) aspirin (Unverified Allergy, Unknown, 11/13/13) Home Medications Albuterol Sulfate 6.7 Gm Hfa.aer.ad, 2 PUFF INH Q6H PRN for SHORTNESS OF BREATH, (Reported) Celecoxib 100 Mg Capsule, 100 MG PO BID, (Reported) Chlorzoxazone 500 Mg Tablet, 500 MG PO TID, (Reported) Desvenlafaxine Succinate 50 Mg Tab.er.24h, 50 MG PO DAILY, (Reported) Docusate Sodium 100 Mg Capsule, 100 MG PO BID PRN for CONSTIPATION-1ST LINE, (Reported) Fluticasone Propionate 16 Gm [place].susp, 2 SPRAYS NS DAILY, (Reported) Oxycodone HCl/Acetaminophen 1 Each Tablet, 1 TAB PO 5XD PRN for PAIN-MODERATE, (Reported) Pregabalin 150 Mg Capsule, 150 MG PO TID, (Reported) Patient Home Medication List Home Medication List Reviewed: Yes Past Dkqgbem-Trkmnu-Xmdkmx Hx Patient Social History Alcohol Use: Denies Use Recreational Drug Use: No Smoking Status: Current Everyday Smoker Type Used: Cigarettes 2nd Hand Smoke Exposure: Yes Recent Foreign Travel: No Contact w/other who traveled: No Recent Hopitalizations: No Recent Infectious Disease Expo: No Immunizations Up To Date Tetanus Booster (TDap): Unknown Date of Influenza Vaccine: Mar 26, 2012 Surgeries Yes Section, Nephrectomy Respiratory No Cardiovascular No Neurological No 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 : 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: Menopausal Genitourinary Kidney Infection Gastrointestinal No Musculoskeletal Yes (RESTLESS LEG SYNDROME) Arthritis Endocrine History of Endocrine Disorders: No Cancer Yes (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) Kidney Psychosocial History of Psychiatric Problem: No Behavioral Health Disorders: Anxiety Integumentary History of Skin or Integumenta: No Blood Transfusions History of Blood Disorders: No Family Medical History Significant Family History: Heart Disease (mother and father), Diabetes Review of Systems Constitutional: No fever Gastrointestinal: abdominal pain; No vomiting Genitourinary: no symptoms reported Musculoskeletal: joint pain Physical Exam Vital Signs Vital Signs - First Documented 11/22/18 14:50 Temp 96.0 Pulse 76 Resp 22 B/P (MAP) 116/86 (96) Pulse Ox 98 O2 Delivery Room Air Capillary Refill : Less Than 3 Seconds Height, Weight, BMI Height: 5'6.00" Weight: 165lbs. 0.0oz. 74.612165ig; 26.6 BMI Method:Stated General Appearance: No Apparent Distress Respiratory: Lungs Clear, Normal Breath Sounds Gastrointestinal: Normal Bowel Sounds, Soft, Tenderness (mild to deep palpation) Extremity: No Pedal Edema Neurologic/Psychiatric: Alert Skin: Normal Color, Warm/Dry Clinical Quality Measures DVT/VTE Risk/Contraindication: Risk Factor Score Per Nursin RFS Level Per Nursing on Admit: 2=Moderate Short Stay Diagnosis Discharge Diagnosis-Short Stay Admission Diagnosis: Small bowel obstruction Final Discharge Diagnosis: Small bowel obstruction- marked improvement overnight with brief period of NG suction. She is wanting to go home, discussed risk of recurrence, and she is agreeable to stay if needed, but states she will not have another NG placed. Given that she has had bowel movements, is tolerating liquids without nausea/vomiting and does not want to have NG replaced even if she has recurrence, agreed with discharge. Discussed limiting use of anticholinergic and opiate medications, she states she does use opiates chronically and has tried many meds for bowel regimen without success and is not really interested in another medication at this time. Conclusion Labs Laboratory Tests 11/23/18 04:19: White Blood Count 11.4H, Red Blood Count 4.32L, Hemoglobin 13.5, Hematocrit 40, Mean Corpuscular Volume 92, Mean Corpuscular Hemoglobin 31, Mean Corpuscular Hemoglobin Concent 34, Red Cell Distribution Width 14.8H, Platelet Count 290, Mean Platelet Volume 10.1, Neutrophils (%) (Auto) 81H, Lymphocytes (%) (Auto) 8L , Monocytes (%) (Auto) 10, Eosinophils (%) (Auto) 1, Basophils (%) (Auto) 0, Neutrophils # (Auto) 9.2H, Lymphocytes # (Auto) 0.9L, Monocytes # (Auto) 1.2H, Eosinophils # (Auto) 0.1, Basophils # (Auto) 0.0, Sodium Level 139, Potassium Level 4.9, Chloride Level 110H, Carbon Dioxide Level 20L, Anion Gap 9, Blood Ur ea Nitrogen 10, Creatinine 0.67, Estimat Glomerular Filtration Rate > 60, BUN/Creatinine Ratio 15, Glucose Level 84, Calcium Level 8.9, Corrected Calcium 8.9, Total Bilirubin 0.5, Aspartate Amino Transf (AST/SGOT) 31, Alanine Aminotransferase (ALT/SGPT) 16, Alkaline Phosphatase 111, Total Protein 6.7, Albumin 4.0 Conclusion/Plan See discharge diagnosis Copy Copies To 1: CHE Villa BETHANY N MD November 23, 2018 16:57
[2018-11-23] MEDS ORDERED: CELECOXIB 100 MG (CeleBREX) CAP PO SCH (21:00)
[2018-11-24] MEDS ORDERED: VENlafaxine 75 MG (EFFEXOR) TAB PO SCH (07:00)
== END 2018-11-23 15:23 | disposition home or self-care (01) | DRG 390 ==
LOC: EDUNIT# 14:42 → ER 14:43 → 4TH 17:11
PROVIDERS: ADMIT Family Medicine; ATTEND Family Medicine
PROC: 0D9670Z Drainage of Stomach with Drainage Device, Via Natural or Artificial Opening (ICD-10-PCS; principal; 2018-11-22)
DX: K56.600 Partial intestinal obstruction, unspecified as to cause (principal); G25.81 Restless legs syndrome; F41.9 Anxiety disorder, unspecified; M19.91 Primary osteoarthritis, unspecified site; K42.9 Umbilical hernia without obstruction or gangrene; F17.210 Nicotine dependence, cigarettes, uncomplicated; Z85.528 Personal history of other malignant neoplasm of kidney; Z90.5 Acquired absence of kidney; Z92.21 Personal history of antineoplastic chemotherapy; Z92.3 Personal history of irradiation
CPT/HCPCS: 36415; 71045; 74177; 80053; 81000; 83690; 85007; 85025; 85027; 90471; 96361; 96374; 96375

== ENCOUNTER → 2019-02-21 | Outpatient (CLI) | payer SELFPAY ==
[~2019-02-21] MED LIST changes: +CELE100C PO; +CHLO500T4 PO; +DESV50TA PO; +DOCU-143 PO; +FLUT16SP22 NS; +OXYC1TAB12 PO; +PREG150C PO; +RT-ALBUINH INH
--- NOTE | 2019-02-21 13:01 | Diagnostic Imaging Report ---
PROCEDURE: MRI lumbar spine. TECHNIQUE: Multiplanar, multisequence MRI of the lumbar spine was performed without contrast. INDICATION: Right hip and right knee pain. FINDINGS: The previous MRI lumbar spine exam performed on 02/25/2017 noted pronounced levoscoliosis of the lumbar spine with multilevel degenerative disc and bony disease. There also appeared to be a stable compression fracture of the superior endplate of L4. On this exam, those findings are again evident. When compared to the previous study, there does not appear to have been any significant change. As noted on the prior exam, the L3-L4 level is the most severely affected. There is narrowing of the disc space at this level as well as abnormal signal in the opposing endplates of L3 and L4. The axial images through the L3-L4 level again show severe right foraminal narrowing due to degenerative disc and bony disease. There is also deformity of the thecal sac at this level due to ligamentous hypertrophy and bony overgrowth. However, these degenerative changes do not appear to have progressed since the prior exam. The remainder of the lumbar spine is also similar in appearance to the previous study. There is no new area of spinal stenosis or nerve root encroachment identified. There is still no abnormal signal arising from the osseous structures or the cord to suggest an acute abnormality. There is no evidence for a paraspinal mass. IMPRESSION: 1. As noted on the previous study, there is severe levoscoliosis of the lumbar spine with multilevel degenerative disc and bony disease. The L3-L4 level is the most significantly affected as there is marked narrowing of the neuroforamen on the right at this level. These findings seem similar to the prior exam, however. No new area of spinal stenosis or nerve root encroachment has developed. 2. There is no sign of an acute bony abnormality or of cord lesion. Dictated by: Dictated on workstation # [id number]
== END ==
LOC: RAD 10:08
PROVIDERS: ATTEND Nurse Practitioner Community Health
DX: M41.86 Other forms of scoliosis, lumbar region (principal); M51.16 Intervertebral disc disorders with radiculopathy, lumbar region; M48.061 Spinal stenosis, lumbar region without neurogenic claudication
CPT/HCPCS: 72148

== ENCOUNTER → 2020-07-14 | Outpatient (CLI) | payer MEDICAID ==
[~2020-07-14] MED LIST changes: +ACHYD1T; -HYDR-3820
--- NOTE | 2020-07-14 09:18 | Diagnostic Imaging Report ---
EXAMINATION: CT Lung Screening. INDICATION: 30 pack year smoking history. TECHNIQUE: Noncontrast, low-dose CT imaging performed according to the lung cancer screening protocol. Auto Exposure Controls were utilize during the CT exam to meet ALARA standards for radiation dose reduction. COMPARISON: Limited two views of the lower chest obtained at abdominal CT of 11/22/2018. FINDINGS: There is chronic rightward convexity thoracic scoliotic curvature without segmentation anomaly or dysraphism. No acute bony abnormality. Curvature of the spine results in elevation of the right diaphragm and likely accounts for discoid partial atelectasis of the right lower lobe with very slight left basilar patchy partial atelectasis. No silvia alveolar consolidation or evidence for pneumonia. No suspicious pulmonary nodule or dominant lung mass. The thoracic aorta is normal in caliber and there is no evidence for lymphadenopathy. There is no effusion or pneumothorax. The visualized upper abdomen shows biliary dilatation which has not obviously changed from the prior CT. IMPRESSION: No suspicious lung mass. Continued low-dose CT screening followup in 1 year. LUNG-RADS CATEGORY: Category 1. MODIFIER: None. OTHER SIGNIFICANT FINDINGS: 1. Redemonstration of biliary dilatation, unchanged from the comparison abdominal CT. 2. Rightward convexity scoliosis with elevated right diaphragm and right greater than left zones of basilar partial atelectasis. Dictated by: Dictated on workstation # [id number]
== END ==
LOC: RAD 08:21
PROVIDERS: ATTEND Nurse Practitioner
DX: J98.11 Atelectasis (principal); F17.210 Nicotine dependence, cigarettes, uncomplicated; K83.8 Other specified diseases of biliary tract; M41.9 Scoliosis, unspecified
CPT/HCPCS: 71271

== ENCOUNTER 2020-11-30 06:54 | Emergency (ER) | payer MEDICAID ==
[~2020-11-30] VITALS: Ht 167.7 cm; Wt 66.6 kg
[2020-11-30 07:27] VITALS: BP 108/71
--- NOTE | 2020-11-30 07:51 | ED Lower Extremity ---
General Chief Complaint: Lower Extremity Stated Complaint: RT ANKLE PAIN Source: patient Exam Limitations: no limitations History of Present Illness Date Seen by Provider: Nov 30, 2020 Time Seen by Provider: 07:42 Initial Comments Patient is a 55-year-old female who presents to the emergency department today with a chief complaint of right ankle pain. Patient states onset of pain and swelling was yesterday. Patient has had a difficult time bearing weight on the right ankle. Patient denies any known trauma. She does not remember twisting or falling or injuring it. She states that she has a history of "brittle bones". She denies numbness, tingling or weakness in that extremity. No knee pain. All other review of systems reviewed and negative except as stated above. Onset: yesterday Severity: moderate Pain/Injury Location: right ankle Method of Injury: unknown Allergies and Home Medications Allergies Coded Allergies: Sulfa (Sulfonamide Antibiotics) (Unverified Allergy, Unknown, 11/13/13) aspirin (Unverified Allergy, Unknown, 11/13/13) Home Medications Albuterol Sulfate 6.7 Gm Hfa.aer.ad, 2 PUFF INH Q6H PRN for SHORTNESS OF BREATH, (Reported) Celecoxib 100 Mg Capsule, 100 MG PO BID, (Reported) Chlorzoxazone 500 Mg Tablet, 500 MG PO TID, (Reported) Desvenlafaxine Succinate 50 Mg Tab.er.24h, 50 MG PO DAILY, (Reported) Docusate Sodium 100 Mg Capsule, 100 MG PO BID PRN for CONSTIPATION-1ST LINE, (Reported) Fluticasone Propionate 16 Gm [place].susp, 2 SPRAYS NS DAILY, (Reported) Oxycodone HCl/Acetaminophen 1 Each Tablet, 1 TAB PO 5XD PRN for PAIN-MODERATE, (Reported) Pregabalin 150 Mg Capsule, 150 MG PO TID, (Reported) Patient Home Medication List Home Medication List Reviewed: Yes Review of Systems Constitutional: see HPI Respiratory: no symptoms reported Cardiovascular: no symptoms reported Gastrointestinal: no symptoms reported Genitourinary: no symptoms reported Musculoskeletal: joint pain (right ankle) Skin: no symptoms reported All Other Systems Reviewed Negative Unless Noted: Yes Past Qxwgjma-Bifasp-Xpqqjo Hx Patient Social History Alcohol Use: Denies Use Smoking Status: Current Everyday Smoker Type Used: Cigarettes 2nd Hand Smoke Exposure: Yes Recent Hopitalizations: No Immunizations Up To Date Tetanus Booster (TDap): Unknown Date of Influenza Vaccine: Mar 26, 2012 Past Medical History Surgeries: Yes (R hip) Section, Nephrectomy, Orthopedic Respiratory: No Cardiac: No Neurological: No SHEATHER History: Menopausal Kidney Infection Gastrointestinal: No Musculoskeletal: Yes (RESTLESS LEG SYNDROME) Arthritis Endocrine: No Cancer: Yes (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 0.0oz. [id number]; 26.6 BMI Method:Stated General Appearance: WD/WN, no apparent distress Cardiovascular: regular rate, rhythm Respiratory: no respiratory distress Hips: bilateral hip non-tender, bilateral hip normal inspection, bilateral hip normal range of motion, bilateral hip no evidence of injury Legs: bilateral leg non-tender, bilateral leg normal inspection, bilateral leg normal range of motion, bilateral leg no evidence of injury Knees: bilateral knee non-tender, bilateral knee normal inspection, bilateral knee normal range of motion, bilateral knee no evidence of injury Ankles: left ankle non-tender, left ankle normal inspection, left ankle normal range of motion, left ankle no evidence of injury; right ankle pain, right ankle soft tissue tenderness, right ankle swelling Feet: bilateral foot non-tender, bilateral foot normal inspection, bilateral foot normal range of motion, bilateral foot no evidence of injury Neurologic/Psychiatric: alert, normal mood/affect Skin: normal color, warm/dry Progress/Results/Core Measures Results/Orders My Orders Orders - NICKIE BERG MD Ankle, Right, 3 Views (11/30/20 07:49) Vital Signs/I&O 11/30/20 07:27 Temp 35.3 Pulse 65 Resp 20 B/P (MAP) 108/71 (83) Pulse Ox 99 O2 Delivery Room Air Progress Progress Note : Time: 08:21 Progress Note 3 views of the right ankle are reviewed, no evidence of fracture or dislocation to the right ankle. Patient is Carlos wrap for comfort advised to elevate and ice the ankle for pain as well as use NSAIDs. She verbalized understanding. All questions are sought and answered. Patient is stable for discharge. Diagnostic Imaging Diagonstic Imaging: Xray Plain Films/CT/US/NM/MRI: ankle Comments No evidence of fracture or dislocation. Soft tissue swelling about the right lateral malleolus [facility]. [place], [place] NAME: MAUREEN BUTLER [facility] REC#: [id number] PT STATUS: REG ER : 1965 PHYSICIAN: NICKIE BERG MD ADMIT DATE: 11/30/20/ER Draft Date of Exam:11/30/20 ANKLE, RIGHT, 3 VIEWS EXAM: ANKLE, RIGHT, 3 VIEWS INDICATION: Right ankle pain and swelling since yesterday. COMPARISON: None. FINDINGS: Demineralization. No fracture or malalignment. No suspicious osteoblastic or lytic lesions. Plantar calcaneal heel spur. Soft tissue shadows are unremarkable. IMPRESSION: No acute radiographic findings in the right ankle. Dictated on workstation # [id number] Dict: 11/30/20 0811 Trans: 11/30/20 0815 [facility] [id number] Interpreted by: RIK SALDAÑA MD Electronically signed by: Departure Impression Primary Impression: Right ankle sprain Qualified Codes: S93.401A - Sprain of unspecified ligament of right ankle, initial encounter Disposition: 01 HOME, SELF-CARE Condition: Stable Departure-Patient Inst. Decision time for Depature: 08:22 [place]errals: [facility] [place] Primary Care Physician TWIN KABA APRN (Family) Primary Care Physician Patient Instructions: Sprain (DC) Add. Discharge Instructions: Keep the Carlos wrap on for comfort. Elevate and ice your right ankle to help reduce pain and swelling. You can take [id number]-[id number] ibuprofen as needed for pain. Weightbearing as tolerated. Return to the emergency room for any new, concerning or emergent complaints. Follow-up with your primary care physician as needed. NICKIE BERG MD Nov 30, 2020 07:51
--- NOTE | 2020-11-30 08:16 | Diagnostic Imaging Report ---
EXAM: ANKLE, RIGHT, 3 VIEWS INDICATION: Right ankle pain and swelling since yesterday. COMPARISON: None. FINDINGS: Demineralization. No fracture or malalignment. No suspicious osteoblastic or lytic lesions. Plantar calcaneal heel spur. Soft tissue shadows are unremarkable. IMPRESSION: No acute radiographic findings in the right ankle. Dictated by: Dictated on workstation # [id number]
== END 2020-11-30 08:30 | disposition home or self-care (01) ==
LOC: EDUNIT# 06:54 → ER 06:57
DX: S93.401A Sprain of unspecified ligament of right ankle, initial encounter (principal); G25.81 Restless legs syndrome; F17.210 Nicotine dependence, cigarettes, uncomplicated; Z79.899 Other long term (current) drug therapy; X58.XXXA Exposure to other specified factors, initial encounter
CPT/HCPCS: 73610

== ENCOUNTER → 2021-01-05 | Outpatient (CLI) | payer MEDICAID ==
--- NOTE | 2021-01-05 11:57 | Diagnostic Imaging Report ---
INDICATION: Postmenopausal state. COMPARISON: None available FINDINGS: AP Spine L1-L4: [BMD (g/cm2): 0.968] [T-Score: -1.9] [Z-Score: -1.1] [BMD Previous: NA] [BMD % Change: NA] LT Hip Neck: [BMD (g/cm2): 0.643] [T-Score: -2.8] [Z-Score: -1.8] LT Hip Total: [BMD (g/cm2):0.599] [T-Score:-3.2] [Z-Score: -2.5] [BMD Previous: NA] [BMD % Change: NA] RT Hip Neck: [BMD (g/cm2):NA] [T-Score:NA] [Z-Score:NA] RT Hip Total: [BMD (g/cm2):NA] [T-score:NA] [Z-Score:NA] [BMD Previous:NA] [BMD % Change:NA] *Indicates significant change from prior examination based on 95% confidence level. World Health Organization criteria for BMD interpretation classify patients as Normal (T-score at or above -1.0), Osteopenic (T-score between -1.0 and -2.5) or Osteoporotic (T-score at or below -2.5). LIMITATIONS AND MODIFICATION: Severe apex left curvature of the thoracolumbar spine. Advanced scattered degenerative changes are noted. The right hip was not evaluated secondary to postsurgical changes. FRACTURE RISK (FRAX SCORE): The ten year probability of (%): Major Osteoporotic Fracture: [23.3] Hip Fracture: [9.4] IMPRESSION: 1. Osteoporosis. 2. Baseline examination. 3. See below National Osteoporosis Foundation guidelines on when to potentially initiate pharmacologic therapy. Based on the National Osteoporosis Foundation Guidelines, pharmacologic treatment should be initiated in any of the following, unless clinical conditions suggest otherwise: * Any patient with prior fragility fracture of the hip or vertebrae. A spine fracture indicates 5X risk for subsequent spine fracture and 2X risk for subsequent hip fracture. * Osteoporosis (T-score <-2.5). * Postmenopausal women and men age 50 and older with low bone mass/osteopenia (T-score between -1.0 and -2.5) by DXA and 10-year major osteoporotic fracture greater than 20% or a 10-year probability of hip fracture greater than 3%. These fracture risks are supplied above in the FRAX score, if applicable. * Clinician judgement and/or patient preferences may indicate treatment for people with 10-year fracture probabilities above or below these levels. Dictated by: Dictated on workstation # [id number]
== END ==
LOC: RAD 11:00
PROVIDERS: ATTEND Pediatrics
DX: M80.051D Age-related osteoporosis with current pathological fracture, right femur, subsequent encounter for fracture with routine healing (principal); Z78.0 Asymptomatic menopausal state
CPT/HCPCS: 77080